=== PATIENT | female | born 1965 | race Caucasian/White ===

== ENCOUNTER 2023-04-17 14:37 | Outpatient (RCR) | payer OTHER, SELFPAY | END 2023-05-30 14:02 | disposition home or self-care (01) | LOC: PT 14:37 | PROVIDERS: PCP Family Medicine | DX: L03.114 Cellulitis of left upper limb (principal); Z98.890 Other specified postprocedural states | CPT/HCPCS: 97035; 97110; 97140; 97162 ==

== ENCOUNTER 2023-09-26 20:10 | Emergency (ER) | payer OTHER, SELFPAY ==
[2023-09-26 20:13] VITALS: BP 129/76; PULSE 67; RESP 18; TEMP 36.8; O2SAT 98; BMI 27.7
--- NOTE | 2023-09-26 20:22 | ED.EAR1 ---
HPI - Ear Problem General Chief complaint: Ear Stated complaint: EAR BLEEDING AFTER POP Time Seen by Provider: 09/26/23 20:17 Source: patient Mode of arrival: walk-in Limitations: no limitations History of Present Illness HPI Narrative: presents with right ear pain. States recent URI symptoms with cough that have improved. Ex smoker. quit 7 years ago. No dyspnea. Bleeding from right ear. Past history several years ago of ear perforation. Denies dizziness or headache. No fever MD Complaint: Reports ear pain Related Data Allergies Allergy/AdvReac Type Severity Reaction Status Date / Time No Known Drug Allergies Allergy Verified 09/26/23 20:17 Review of Systems ROS Status of ROS 10 or more systems reviewed and unremarkable except as noted in history and below [facility] Social History Smoking status: Former smoker Exam Constitutional Vital Signs, click to edit/add: Last Vital Signs Temp 98.2 F 09/26/23 20:13 Pulse 67 09/26/23 20:13 Resp 18 09/26/23 20:13 BP 129/76 09/26/23 20:13 Pulse Ox 98 09/26/23 20:13 O2 Del Method Room Air 09/26/23 20:13 Common normals: no apparent distress, average body habitus, oriented x3, no limitations, healthy appearing and alert HENND Common normals: normocephalic and head/scalp atraumatic Other: right TM inflamed. sm. perforation. No active bleeding in canal Eye Common normals: PERRL, EOMs intact bilaterally and conjunctivae normal Respiratory Common normals: normal respiratory effort, no retractions and no use of accessory muscles Cardio Common normals: regular rate, regular rhythm, S1 normal heart sound and S2 normal heart sound GI Common normals: Normal to inspection, nondistended, normoactive bowel sounds present, soft to palpation and non-tender Extremity Common normals: normal to inspection and full ROM Neuro Common normals: oriented x3, CN's II-XII intact bilaterally, moves all extremities and no focal motor deficits Psych Appearance: grossly normal Course Vital Signs Vital signs: Vital Signs Temperature 98.2 F 09/26/23 20:13 Pulse Rate 67 09/26/23 20:13 Respiratory Rate 18 09/26/23 20:13 Blood Pressure 129/76 09/26/23 20:13 Pulse Oximetry 98 09/26/23 20:13 Oxygen Delivery Method Room Air 09/26/23 20:13 Temperature 98.2 F 09/26/23 20:13 Pulse Rate 67 09/26/23 20:13 Respiratory Rate 18 09/26/23 20:13 Blood Pressure 129/76 09/26/23 20:13 Pulse Oximetry 98 09/26/23 20:13 Oxygen Delivery Method Room Air 09/26/23 20:13 Medical Decision Making MDM Narrative Medical decision making narrative: presents with acute onset of right ear pain and bleeding from the ear. Found to have acute otitis media and small perforation. No dizziness or headache. Given dose of Augmentin and discharged home to follow up with her doctor Discharge Plan Discharge Chief Complaint: Ear Clinical Impression: Otitis media, Perforated right tympanic membrane on examination Patient Disposition: Home, Self-Care Instructions: Ruptured Eardrum (ED) Additional Instructions: follow up with your doctor next week for recheck Stand Alone Forms: Portal Instructions Referrals: Huber Thorne MD [Primary Care Provider] - 1 week
[2023-09-26] MEDS: AMOXICILLIN/POTASSIUM CLAV 1 TAB TABLET PO (20:36)
== END 2023-09-26 20:39 | disposition home or self-care (01) ==
PROVIDERS: Emergency Provider Internal Medicine; PCP Family Medicine
DX: H72.91 Unspecified perforation of tympanic membrane, right ear (principal); H66.91 Otitis media, unspecified, right ear; Z87.891 Personal history of nicotine dependence
CPT/HCPCS: 99283

== ENCOUNTER 2025-07-03 07:23 | Outpatient (OUT) | payer OTHER, SELFPAY ==
--- OUTSIDE RECORDS SUMMARY | 2025-07-03 07:28 | XMS_ITS | CCD ---
Author Organization [facility] Care Team Providers Care Livestock Haulier Name Role Phone Harper Shin Unavailable LUIS ., DR FITZGERALD Admitting Unavailable HOY ., DR FITZGERALD Attending Unavailable HOY ., DR FITZGERALD Consulting Unavailable NADERER, DR HUBER Hu Primary Care Unavailable ZIEBER, DR AC Tolentino Consulting Unavailable HAY ., DR ALBERTO Consulting Unavailable SCHRELEE OLSEN Consulting Unavailable SWARTZ, LANE Consulting Unavailable NADYURI, DR HUBER Hu Admitting Unavailable NADERER, DR UHBER Hu Attending Unavailable ZIEBER, DR AC Tolentino Consulting Unavailable NADERER, DR HUBER Hu Primary Care Unavailable NADERER, DR HUBER Hu Consulting Unavailable NADERERajan, DR HUBER Hu Attending Unavailable NADERER, DR HUBER Hu Consulting Unavailable NADERER, DR HUBER Hu Primary Care Unavailable NADERER, DR HUBER Hu Admitting Unavailable JANNY CONCEPCION Admitting Unavailable JANNY CONCEPCION Attending Unavailable ZULEIMA, DR HUBER Hu Primary Care Unavailable Janny Concepcion Unavailable Janny Concepcion A Admitting Unavailable Janny Concepcion A Attending Unavailable Zuleima, Huber Primary Care Unavailable Roberto Concepcionin A Admitting Unavailable Janny Concepcion A Attending Unavailable Huber Dewey Primary Care Unavailable Jigar, John Admitting Unavailable Nadyuri, Huber Primary Care Unavailable Juvenal Holguin Consulting Unavailable Arabella Bynum Attending Unavailable Roberto Concepcionin A Consulting Unavailable Roberto Concepcionin A Admitting Unavailable Janny Concepcion A Attending Unavailable Huber Dewey Primary Care Unavailable Huber Dewey MD Primary Care Provider [phone] FIOR PINON Attending Unavailable FIOR PINON Referring Unavailable FIOR PINON Attending Unavailable NO PCP, NO PCP Primary Care Unavailable DAV PAL Attending Unavailable Allergies Allergy Classification Reported Allergen(s) Allergy Type Date of Onset Reaction(s) Facility (1 source) Penicillins Drug allergy (disorder) 04-07-2023 [facility] Repository Medications Current Medications Medication Drug Class(es) Dates Sig (Normalized) Sig (Original) acetaminophen 500 mg oral tablet (4 sources) Start: 3 take 2 tablets by mouth every eight hours Acetaminophen 500 MG 2 tablets Orally Every 8 hours for 30 days March, Active celecoxib 200 mg oral capsule (2 sources) Nonsteroidal Anti-inflammatory Drug Start: 4 take 1 capsule by mouth at bedtime celecoxib (CeleBREX) 200 MG capsule Indications: Arthralgia of right ankle take 1 capsule by mouth IN THE MORNING and BEFORE BEDTIME 180 capsule 3 04/12/2024 Active cetirizine hydrochloride 10 mg oral tablet (2 sources) Histamine-1 Receptor Antagonist Start: 1 take 1 tablet by mouth every twenty-four hours Cetirizine HCl 10 MG 1 tablet Orally Once a day for 14 days Sep, Active fluticasone propionate 0.05 mg/actuat metered dose nasal spray (1 source) Corticosteroid Start: 1 take 1 spray(s) nasal route once daily Flonase Allergy Relief 50 MCG/ACT 1 spray in each nostril Nasally Once a day for 14 day(s) Sep, Active ibuprofen 800 mg oral tablet (2 sources) Nonsteroidal Anti-inflammatory Drug Start: 4 take 1 tablet by mouth three times daily ibuprofen 800 MG tablet Indications: Arthralgia of both ankles take 1 tablet by mouth three times a day if needed 90 tablet 3 05/20/2024 Active levothyroxine sodium 0.1 mg oral tablet (2 sources) l-Thyroxine Start: 4 take 1 tablet by mouth once daily levothyroxine (Synthroid, Levoxyl) 100 MCG tablet Indications: Adult hypothyroidism (CMS/HCC) TAKE 1 TABLET BY MOUTH EVERY DAY 90 tablet 3 08/24/2024 Active linezolid 600 mg oral tablet (1 source) Oxazolidinone Antibacterial Linezolid 600 MG ALAN E 1 TABLET BY MOUTH TWICE DAILY FOR 14 DAYS Oral for 14 Days 12 pills Active methylPREDNISolone (2 sources) Corticosteroid Start: 5 methylPREDNISolone (Medrol Dospak) 4 MG tablets Indications: Posterior tibial tendinitis of right lower extremity Take as directed on package. 21 tablet 01/06/2025 Active Nirmatrelvir&Ritonavir 300/100 (Paxlovid, 300/100,) 20 x 150 MG & 10 x 100MG tablet therapy pack (2 sources) Start: 4 Nirmatrelvir&Ritonavi r 300/100 (Paxlovid, 300/100,) 20 x 150 MG & 10 x 100MG tablet therapy pack Indications: COVID Take 1 Dose by mouth See administration instructions 1 each 11/26/2023 Active omeprazole 40 mg delayed release oral capsule (4 sources) Proton Pump Inhibitor Start: 5 take 1 capsule by mouth once daily omeprazole (PriLOSEC) [address] capsule Indications: Chronic GERD TAKE 1 CAPSULE BY MOUTH EVERY DAY 90 capsule 1 12/09/2024 Active Omeprazole 40 MG Oral for 30 Days Active oxyCODONE hydrochloride 5 mg oral tablet (3 sources) Opioid Agonist Start: 04-06-2023 take 1 tablet by mouth every four hours as needed for pain oxyCODONE HCl 5 MG 1 tablet Orally every 4 hours, as needed for pain for 7 days HEATHER # [id number] March, Active Penicillin (2 sources) Penicillin 28 pills Active Completed/Discontinued Medications Medication Drug Class(es) Dates Sig (Normalized) Sig (Original) cefTRIAXone (4 sources) Cephalosporin Antibacterial Start: 10-16-2017 Rocephin 500 mg Oct, 500 mg Problems Active Problems Problem Classification Problem Date Documented Date Episodic/Chronic Cardiac dysrhythmias (3 sources) Unspecified atrial fibrillation; 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: [Paroxysmal atrial fibrillation] Onset: 03-31-2023 03-28-2024 Chronic Diseases of white blood cells (1 source) Elevated white blood cell count, unspecified; 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: [Elevated white blood cell count, unspecified] Onset: 03-26-2023 Chronic E Codes: Struck by; against (1 source) Walked into wall, initial encounter; 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: [WALKED INTO WALL INITIAL ENCOUNTER] Onset: 03-31-2023 Episodic Fluid and electrolyte disorders (1 source) Hypokalemia; 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: [HYPOKALEMIA] Onset: 03-31-2023 Episodic Fracture of lower limb (2 sources) Stress fracture of left tibia; 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: [Stress fracture, left tibia, initial encounter for fracture] 01-06-2025 Episodic Gastritis and duodenitis (2 sources) Chronic superficial gastritis; 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: [Chronic superficial gastritis without bleeding] Onset: 03-28-2024 03-28-2024 Chronic Menopausal disorders (1 source) Hormone replacement therapy; 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: [HORMONE REPLACEMENT THERAPY] Onset: 03-31-2023 Episodic Open wounds of extremities (1 source) Laceration without foreign body of left index finger without damage to nail, initial encounter; 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: [Laceration without foreign body of left index finger without damage to nail, initial encounter] Onset: 05-29-2025 Episodic Other aftercare (1 source) 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; 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: [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 CLERK CURRENT DRUG THERAPY] Onset: 03-31-2023 Episodic Other aftercare (1 source) [facility] (current) use of aspirin; 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: [SNF CURRENT USE OF ASPIRIN] Onset: 03-31-2023 Episodic Other aftercare (1 source) Encounter for removal of sutures Episodic Other connective tissue disease (2 sources) Tendinitis of right posterior tibial tendon; 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: [Posterior tibial tendinitis, right leg] 01-06-2025 Episodic Other injuries and conditions due to external causes (2 sources) Laceration - injury Onset: 05-29-2025 Episodic Other nervous system disorders (2 sources) Difficulty walking; 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: [Difficulty in walking, not elsewhere classified] 01-06-2025 Chronic Other non-traumatic joint disorders (1 source) Stiffness of left elbow, not elsewhere classified Episodic Other non-traumatic joint disorders (1 source) Pain in left knee Episodic Other non-traumatic joint disorders (2 sources) Acute ankle pain; 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: [Pain in right ankle and joints of right foot] 01-06-2025 Episodic Other non-traumatic joint disorders (2 sources) Instability of joint of right ankle; 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: [Other instability, right ankle] 01-06-2025 Episodic Other screening for suspected conditions (not mental disorders or infectious disease) (1 source) Abnormal results of kidney function studies; 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: [ABNORM RESULTS KIDNEY FUNCTION STDY] Onset: 03-31-2023 Episodic Residual codes; unclassified (1 source) Family history of malignant neoplasm of bladder; 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: [FAM HX MALIGNANT NEOPLASM BLADDER] Onset: 03-31-2023 Episodic Residual codes; unclassified (1 source) Family history of malignant neoplasm of other organs or systems; 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: [FAM HX MALIG NEOPLASM OTH ORGN/SYS] Onset: 03-31-2023 Episodic Residual codes; unclassified (4 sources) Other specified postprocedural states Episodic Screening and history of mental health and substance abuse codes (1 source) Personal history of nicotine dependence; 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: [PERSONAL HISTORY OF NICOTINE DEPEND] Onset: 03-31-2023 Episodic Skin and subcutaneous tissue infections (10 sources) Cellulitis of left upper limb; 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: [Cellulitis, unspecified] Onset: 03-26-2023 Episodic Superficial injury; contusion (1 source) Contusion of left forearm, initial encounter; 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: [CONTUSION LEFT FOREARM INITIAL ENC] Onset: 03-31-2023 Episodic Thyroid disorders (2 sources) Hypothyroidism; 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: [Hypothyroidism, unspecified] Onset: 03-28-2024 03-28-2024 Chronic Unclassified (1 source) Ankylosis, left elbow; 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, left elbow] Onset: 05-06-2023 Unclassified (1 source) Cellulitis of left upper limb; 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: [Cellulitis of left upper limb] Onset: 04-07-2023 Past or Other Problems Problem Classification Problem Date Documented Da te Episodic/Chronic Immunizations and screening for infectious disease (1 source) Contact with and (suspected) exposure to other viral communicable diseases Onset: 09-30-2021 Resolved: 09-30-2021 Episodic Other non-traumatic joint disorders (4 sources) Pain in right ankle and joints of right foot; 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: [PAIN IN RIGHT ANKLE] Onset: 08-22-2022 Episodic Other non-traumatic joint disorders (1 source) Pain in left ankle and joints of left foot; 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: [PAIN IN LEFT ANKLE] Onset: 08-26-2022 Episodic Other non-traumatic joint disorders (2 sources) Bilateral ankle joint pain; 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: [Pain in right ankle and joints of right foot] Onset: 03-28-2024 03-28-2024 Episodic Other non-traumatic joint disorders (2 sources) Chronic pain of left upper limb; 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: [Pain in left shoulder] Onset: 03-28-2024 03-28-2024 Episodic Other skin disorders (2 sources) Vesicular eczema; 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: [Dyshidrosis [pompholyx]] Onset: 03-28-2024 03-28-2024 Episodic Other upper respiratory infections (1 source) Acute upper respiratory infection, unspecified Onset: 09-30-2021 Resolved: 09-30-2021 Episodic Otitis media and related conditions (2 sources) Rupture of right tympanic membrane due to otitis media; 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: [Otitis media, unspecified, right ear] Onset: 03-28-2024 03-28-2024 Episodic Results Test Name Value Interpretation Reference Range Facility XR FINGER LT 2ND DIGIT MIN 2 VWSon 05-29-2025 XR FINGER LT 2ND DIGIT MIN 2 VWS XR FINGER LT 2ND DIGIT MIN 2 VWS STUDY: Radiographs of the left second digit TECHNIQUE: 3 views of the left second digit COMPARISON: Limited comparison with contralateral right hand radiographs dated 11/26/2009 FINDINGS/IMPRESSION: 1. Mild soft tissue edema about the base of the second digit without gross soft tissue defect/ulceration. 2. Postsurgical changes of the third proximal phalanx. Mild osteoarthritic changes of the first CMC. Normal osseous mineralization. Finalized by Mya Robles MD on 05/29/2025 1:56 PM Normal [facility] XR Ankle - right 3 Viewson 0 01-06-2025 Imaging Result: AP, mortise, lateral views are weight-bearing. Diffuse osteopenia. Small enthesophyte at the insertion of the Achilles tendon. Mild radiopacity across the tibia approximately 3 cm above the fused distal tibial physis. Talus appears well seated within the ankle mortise. No fractures or dislocations noted. [facility] Radiology Study observation (narrative) [facility] XR elbow LT 2Von 05-06-2023 XR elbow LT 2V [facility] Main [place] [address] [place] [address] XRay Report Signed Patient: Laura Tyler MR#: [id number] : 1965 Acct:[id number] Age/Sex: 57 / F ADM Date: 05/06/23 [place]: [place] Room: Type: [facility] Attending Dr: Janny Concepcion DO Copies to: Janny Concepcion DO Ordering Provider: Janny Concepcion DO Date of Service: 05/06/23 XR/XR elbow LT 2V: . XR elbow LT 2V 05/06/2023 7:26 AM SIGNS AND SYMPTOMS: Manipulation of left elbow PROTOCOL: Intraoperative views of the left elbow COMPARISON: 04/06/2023 FINDINGS: Intraoperative views of the left elbow were obtained in frontal and lateral projection. The bones appear to be in anatomic alignment. Cumulative Air Kerma in mGy: 0.0668 mGy XR/XR elbow LT 2V IMPRESSION: Intraoperative views of the left elbow were obtained in frontal and lateral projection. The bones appear to be in anatomic alignment. Impression dictated by: Braden Rae M.D.05/06/2023 10:05 AM Dictation Location: [place] [address] Transcribed By: [facility] 05/06/23 1005 Dictated By: Braden Rae II, MD 05/06/23 1003 Signed By: 05/06/23 1005 [facility] CT forearm LT wo conon 04-06 CT forearm LT wo con [facility] [place] [address] CT Scan Report Signed Patient: Laura Tyler MR#: [id number] : 1965 Acct:[id number] Age/Sex: 57 / F ADM Date: 04/06/23 Loc: CT Room: Type: [facility] Attending Dr: Janny Concepcion DO Copies to: Janny Concepcion DO Ordering Provider: Janny Concepcion DO Date of Service: 04/06/23 CT/CT humerus LT wo con: L03.114 ([id number]) CT/CT forearm LT wo con: Left arm cellulitis CT humerus LT wo con, CT forearm LT wo con 04/06/2023 3:22 PM SIGNS AND SYMPTOMS: Redness and swelling of left forearm, history of incision and debridement TECHNIQUE: Multidetector CT axial slices of the left humerus and left forearm without IV contrast. Multiplanar and 3-D reformats were performed and viewed on a separate workstation and reviewed to further define anatomy and possible pathology. CT was performed with one or more of the following dose reduction techniques: Automated exposure control, adjustment of the mA and/or kV according to patient size, or use of iterative reconstruction technique. COMPARISON: 03/28/2023. FINDINGS: There is similar soft tissue swelling along the left humerus and left elbow extending into the left forearm. There is no evidence of abscess formation. No osteolytic or bony destructive process. There is no evidence of periosteal reaction. The elbow is grossly intact without evidence of a significant joint effusion. CT/CT humerus LT wo con IMPRESSION: Findings suggest cellulitis of the left upper extremity without evidence of abscess formation. No CT evidence of osteomyelitis. Impression dictated by: Braden Rae M.D.04/06/2023 4:54 PM Dictation Location: [place] [address] Transcribed By: [facility] 04/06/23 165 Dictated By: Braden Rae II, MD 04/06/23 1648 Signed By: 04/06/231653 Normal [facility] C-Reactive Proteinon 023 C-Reactive Protein 8.3 mg/dL High 0.0-0.5 [facility] Comment on above: Result Comment: PERF ORMED BY: [place] [address] PATHOLOGIST HARDWARE INSTALLATION COORDINATOR FREDY PRICE M.D. Performed By: #### C RP #### [address] Complete Blood Count Auto Di ffon 04-02-2023 Basophils (Bld) [#/Vol] 0.1 10*3/uL Normal 0.0-0.2 [facility] Comment on above: Result Comment: PERF ORMED BY: [place] [address] PATHOLOGIST HARDWARE INSTALLATION COORDINATOR FREDY PRICE M.D. Performed By: #### C BC #### [address] Basophils/100 WBC (Bld) 0.6 % Normal . [facility] Comment on above: Performed By: #### C BC #### [address] Eosinophils (Bld) [#/Vol] 0.3 10*3/uL Normal 0.0-0.45 [facility] Comment on above: Performed By: #### C BC #### [address] Eosinophils/100 WBC (Bld) 2.5 % Normal . [facility] Comment on above: Performed By: #### C BC #### [address] Erythrocyte distribution width (RBC) [Ratio] 14.2 % Normal 11.9-15.3 [facility] Comment on above: Performed By: #### C BC #### [address] Hematocrit (Bld) [Volume fraction] 34.0 % Normal 34.0-46.4 [facility] Comment on above: Performed By: #### C BC #### [address] Hemoglobin (Bld) [Mass/Vol] 10.9 g/dL Low 11.8-15.4 [facility] Comment on above: Performed By: #### C BC #### [address] Lymphocytes (Bld) [#/Vol] 1.0 10*3/uL Normal 1.00-4.8 [facility] Comment on above: Performed By: #### C BC #### [address] Lymphocytes/100 WBC (Bld) 8.8 % Normal . [facility] Comment on above: Performed By: #### C BC #### [address] MCH (RBC) [Entitic mass] 27.3 pg Normal 24.7-34.3 [facility] Comment on above: Performed By: #### C BC #### [address] MCV (RBC) [Entitic vol] 85.4 fL Normal 80-100 [facility] Comment on above: Performed By: #### C BC #### [address] Mean Corpuscular HGB Conc 32.0 g/dL Normal 32.0-35.0 [facility] Comment on above: Performed By: #### C BC #### [address] Monocytes (Bld) [#/Vol] 0.3 10*3/uL Normal 0.0-0.8 [facility] Comment on above: Performed By: #### C BC #### [address] Monocytes/100 WBC (Bld) 2.3 % Normal . [facility] Comment on above: Performed By: #### C BC #### [address] Neutrophils (Bld) [#/Vol] 9.9 10*3/uL High 1.8-7.7 [facility] Comment on above: Performed By: #### C BC #### [address] Neutrophils/100 WBC (Bld) 85.8 % Normal . [facility] Comment on above: Performed By: #### C BC #### [address] NRBC% 0.0 /100{WBC} Normal 0-0.5 [facility] Comment on above: Performed By: #### C BC #### [address] Platelet mean volume (Bld) [Entitic vol] 7.5 fL Normal 6.3-10.7 [facility] Comment on above: Performed By: #### C BC #### [address] Platelets (Bld) [#/Vol] 476 10*3/uL High 150-450 [facility] Comment on above: Performed By: #### C BC #### [facility] [address] RBC (Bld) [#/Vol] 3.98 10*6/uL Normal 3.60-5.00 [facility] Comment on above: Performed By: #### C BC #### [facility] [address] WBC (Bld) [#/Vol] 11.5 10*3/uL Normal 3.8-11.6 [facility] Comment on above: Performed By: #### C BC #### [facility] [address] Basic Metabolic Panelon 03-16 Anion gap [Moles/Vol] 9.0 mmol/L Normal 6.0-15.0 [facility] Comment on above: Performed By: #### B MP #### [facility] [address] Calcium [Mass/Vol] 7.7 mg/dL Low 8.6-10.3 [facility] Comment on above: Performed By: #### B MP #### [facility] [address] Chloride [Moles/Vol] 102 mmol/L Normal 98-107 [facility] Comment on above: Performed By: #### B MP #### [address] CO2 [Moles/Vol] 30.4 mmol/L Normal 21.0-31.0 [facility] Comment on above: Performed By: #### B MP #### [facility] [address] Creatinine [Mass/Vol] 0.63 mg/dL Normal 0.60-1.20 [facility] Comment on above: Performed By: #### B MP #### [facility] [address] [place] [address] Creatinine Clr Calc Pharmacy 109.55 Normal [facility] Comment on above: Result Comment: PERF ORMED BY: [place] [address] PATHOLOGIST HARDWARE INSTALLATION COORDINATOR FREDY PRICE M.D. Performed By: #### B MP #### [place] [address] [place] GFR/1.73 sq M.predicted MDRD (S/P/Bld) [Vol rate/Area] mL/min/{1.73_m2} Normal [facility] Comment on above: Performed By: #### B MP #### [address] Glucose [Mass/Vol] 85 mg/dL Normal 70-100 [facility] Comment on above: Result Comment: [facility] Glucose Reference Range is dependent on time and content of last meal. Glucose of more than 200 mg/dL in a nonstressed, ambulatory subject supports the diagnosis of Diabetes Mellitus. ADA recommended reference range Performed By: #### B MP #### [address] Potassium [Moles/Vol] 4.4 mmol/L Normal 3.5-5.1 [facility] Comment on above: Performed By: #### B MP #### [address] Sodium [Moles/Vol] 137 mmol/L Normal 136-145 [facility] Comment on above: Performed By: #### B MP #### [place] [address] [place] Urea nitrogen [Mass/Vol] 14 mg/dL Normal 7-25 [facility] Comment on above: Performed By: #### B MP #### [address] Complete Blood Count Auto Di ffon 04-01-2023 Basophils (Bld) [#/Vol] 0.0 10*3/uL Normal 0.0-0.2 [facility] Comment on above: Result Comment: PERF ORMED BY: [place] [address] PATHOLOGIST HARDWARE INSTALLATION COORDINATOR FREDY PRICE M.D. Performed By: #### E SR, CRP #### [facility] [address] [place] [address] [place] Basophils/100 WBC (Bld) 0.4 % Normal . [facility] Comment on above: Performed By: #### E SR, CRP #### [facility] [address] [place] [address] [place] Eosinophils (Bld) [#/Vol] 0.2 10*3/uL Normal 0.0-0.45 [facility] Comment on above: Performed By: #### E SR, CRP #### [facility] [address] [place] [address] [place] Eosinophils/100 WBC (Bld) 1.4 % Normal . [facility] Comment on above: Performed By: #### E SR, CRP #### [facility] [address] [place] [address] Erythrocyte distribution width (RBC) [Ratio] 14.5 % Normal 11.9-15.3 [facility] Comment on above: Performed By: #### E SR, CRP #### [facility] [address] [place] [address] [place] Hematocrit (Bld) [Volume fraction] 32.7 % Low 34.0-46.4 [facility] Comment on above: Performed By: #### E SR, CRP #### [facility] [address] [place] [address] [place] Hemoglobin (Bld) [Mass/Vol] 10.6 g/dL Low 11.8-15.4 [facility] Comment on above: Performed By: #### E SR, CRP #### [facility] [address] [place] [address] [place] Lymphocytes (Bld) [#/Vol] 1.0 10*3/uL Normal 1.00-4.8 [facility] Comment on above: Performed By: #### E SR, CRP #### [facility] [address] [place] [address] [place] Lymphocytes/100 WBC (Bld) 8.7 % Normal . [facility] Comment on above: Performed By: #### E SR, CRP #### [facility] [address] MCH (RBC) [Entitic mass] 27.6 pg Normal 24.7-34.3 [facility] Comment on above: Performed By: #### E SR, CRP #### [facility] [address] MCV (RBC) [Entitic vol] 85.4 fL Normal 80-100 [facility] Comment on above: Performed By: #### E SR, CRP #### [facility] [address] [place] [address] Mean Corpuscular HGB Conc 32.3 g/dL Normal 32.0-35.0 [facility] Comment on above: Performed By: #### E SR, CRP #### [facility] [address] [place] [address] Monocytes (Bld) [#/Vol] 0.3 10*3/uL Normal 0.0-0.8 [facility] Comment on above: Performed By: #### E SR, CRP #### [facility] [address] [place] [address] Monocytes/100 WBC (Bld) 2.7 % Normal . [facility] Comment on above: Performed By: #### E SR, CRP #### [facility] [address] [place] [address] Neutrophils (Bld) [#/Vol] 10.4 10*3/uL High 1.8-7.7 [facility] Comment on above: Performed By: #### E SR, CRP #### [facility] [address] [place] [address] [place] Neutrophils/100 WBC (Bld) 86.8 % Normal . [facility] Comment on above: Performed By: #### E SR, CRP #### [facility] [address] [place] [address] NRBC% 0.1 /100{WBC} Normal 0-0.5 [facility] Comment on above: Performed By: #### E SR, CRP #### [facility] [address] [place] [address] Platelet mean volume (Bld) [Entitic vol] 7.6 fL Normal 6.3-10.7 [facility] Comment on above: Performed By: #### E SR, CRP #### [address] Platelets (Bld) [#/Vol] 450 10*3/uL Normal 150-450 [facility] Comment on above: Performed By: #### E SR, CRP #### [address] RBC (Bld) [#/Vol] 3.83 10*6/uL Normal 3.60-5.00 [facility] Comment on above: Performed By: #### E SR, CRP #### [address] WBC (Bld) [#/Vol] 12.0 10*3/uL High 3.8-11.6 [facility] Comment on above: Performed By: #### Jeffery SR, CRP #### [address] Basic Metabolic Panelon 05-1 Anion gap [Moles/Vol] 10.7 mmol/L Normal 6.0-15.0 [facility] Comment on above: Performed By: #### B MP, CBC #### [address] Calcium [Mass/Vol] 7.7 mg/dL Low 8.6-10.3 [facility] Comment on above: Performed By: #### B MP, CBC #### [address] Chloride [Moles/Vol] 101 mmol/L Normal 98-107 [facility] Comment on above: Performed By: #### B MP, CBC #### [address] CO2 [Moles/Vol] 31.2 mmol/L High 21.0-31.0 [facility] Comment on above: Performed By: #### B MP, CBC #### [facility] [address] [place] [address] [place] Creatinine [Mass/Vol] 0.71 mg/dL Normal 0.60-1.20 [facility] Comment on above: Performed By: #### B MP, CBC #### [facility] [address] [place] [address] [place] Creatinine Clr Calc Pharmacy 97.38 Normal [facility] Comment on above: Result Comment: PERF ORMED BY: [place] [address] PATHOLOGIST HARDWARE INSTALLATION COORDINATOR FREDY PRICE M.D. Performed By: #### B MP, CBC #### [place] [address] [place] GFR/1.73 sq M.predicted MDRD (S/P/Bld) [Vol rate/Area] mL/min/{1.73_m2} Normal [facility] Comment on above: Performed By: #### B MP, CBC #### [address] Glucose [Mass/Vol] 84 mg/dL Normal 70-100 [facility] Comment on above: Result Comment: [place] Glucose Reference Range is dependent on time and content of last meal. Glucose of more than 200 mg/dL in a nonstressed, ambulatory subject supports the diagnosis of Diabetes Mellitus. ADA recommended reference range Performed By: #### B MP, CBC #### [place] [address] [place] Potassium [Moles/Vol] 3.9 mmol/L Normal 3.5-5.1 [facility] Comment on above: Performed By: #### B MP, CBC #### [place] [address] [place] Sodium [Moles/Vol] 139 mmol/L Normal 136-145 [facility] Comment on above: Performed By: #### B MP, CBC #### [facility] [address] [place] [address] [place] Urea nitrogen [Mass/Vol] 17 mg/dL Normal 7-25 [facility] Comment on above: Performed By: #### B MP, CBC #### [facility] [address] Complete Blood Count Auto Di ffon 03-31-2023 Basophils (Bld) [#/Vol] 0.1 10*3/uL Normal 0.0-0.2 [facility] Comment on above: Result Comment: PERF ORMED BY: [place] [address] PATHOLOGIST HARDWARE INSTALLATION COORDINATOR FREDY PRICE M.D. Performed By: #### B MP, CBC #### [address] Basophils/100 WBC (Bld) 0.3 % Normal . [facility] Comment on above: Performed By: #### B MP, CBC #### [address] Eosinophils (Bld) [#/Vol] 0.1 10*3/uL Normal 0.0-0.45 [facility] Comment on above: Performed By: #### B MP, CBC #### [address] Eosinophils/100 WBC (Bld) 0.9 % Normal . [facility] Comment on above: Performed By: #### B MP, CBC #### [address] Erythrocyte distribution width (RBC) [Ratio] 14.2 % Normal 11.9-15.3 [facility] Comment on above: Performed By: #### B MP, CBC #### [facility] [address] [place] [address] Hematocrit (Bld) [Volume fraction] 33.1 % Low 34.0-46.4 [facility] Comment on above: Performed By: #### B MP, CBC #### [address] Hemoglobin (Bld) [Mass/Vol] 10.6 g/dL Low 11.8-15.4 [facility] Comment on above: Performed By: #### B MP, CBC #### [facility] [address] Lymphocytes (Bld) [#/Vol] 0.9 10*3/uL Low 1.00-4.8 [facility] Comment on above: Performed By: #### B MP, CBC #### [address] Lymphocytes/100 WBC (Bld) 6.1 % Normal . [facility] Comment on above: Performed By: #### B MP, CBC #### [address] MCH (RBC) [Entitic mass] 27.3 pg Normal 24.7-34.3 [facility] Comment on above: Performed By: #### B MP, CBC #### [address] MCV (RBC) [Entitic vol] 85.5 fL Normal 80-100 [facility] Comment on above: Performed By: #### B MP, CBC #### [address] Mean Corpuscular HGB Conc 31.9 g/dL Low 32.0-35.0 [facility] Comment on above: Performed By: #### B MP, CBC #### [address] Monocytes (Bld) [#/Vol] 0.3 10*3/uL Normal 0.0-0.8 [facility] Comment on above: Performed By: #### B MP, CBC #### [place] [address] [place] Monocytes/100 WBC (Bld) 2.3 % Normal . [facility] Comment on above: Performed By: #### B MP, CBC #### [address] Neutrophils (Bld) [#/Vol] 13.5 10*3/uL High 1.8-7.7 [facility] Comment on above: Performed By: #### B MP, CBC #### [address] Neutrophils/100 WBC (Bld) 90.4 % Normal . [facility] Comment on above: Performed By: #### B MP, CBC #### [facility] [address] NRBC% 0.0 /100{WBC} Normal 0-0.5 [facility] Comment on above: Performed By: #### B MP, CBC #### [address] Platelet mean volume (Bld) [Entitic vol] 7.8 fL Normal 6.3-10.7 [facility] Comment on above: Performed By: #### B MP, CBC #### [address] Platelets (Bld) [#/Vol] 447 10*3/uL Normal 150-450 [facility] Comment on above: Performed By: #### B MP, CBC #### [address] RBC (Bld) [#/Vol] 3.87 10*6/uL Normal 3.60-5.00 [facility] Comment on above: Performed By: #### B MP, CBC #### [address] WBC (Bld) [#/Vol] 14.9 10*3/uL High 3.8-11.6 [facility] Comment on above: Performed By: #### B MP, CBC #### [address] Basic Metabolic Panelon 05- Anion gap [Moles/Vol] 8.2 mmol/L Normal 6.0-15.0 [facility] Comment on above: Performed By: #### E SR, CRP #### [address] Calcium [Mass/Vol] 8.1 mg/dL Low 8.6-10.3 [facility] Comment on above: Performed By: #### E SR, CRP #### [facility] [address] [place] [address] [place] Chloride [Moles/Vol] 100 mmol/L Normal 98-107 [facility] Comment on above: Performed By: #### E SR, CRP #### [facility] [address] [place] [address] [place] CO2 [Moles/Vol] 34.7 mmol/L High 21.0-31.0 [facility] Comment on above: Performed By: #### E SR, CRP #### [facility] [address] [place] [address] [place] Creatinine [Mass/Vol] 0.65 mg/dL Normal 0.60-1.20 [facility] Comment on above: Performed By: #### E SR, CRP #### [facility] [address] [place] [address] [place] Creatinine Clr Calc Pharmacy 105.75 [facility] Comment on above: Performed By: #### E SR, CRP #### [facility] [address] [place] [address] [place] GFR/1.73 sq M.predicted MDRD (S/P/Bld) [Vol rate/Area] mL/min/{1.73_m2} [facility] Comment on above: Performed By: #### E SR, CRP #### [facility] [address] [place] [address] [place] Glucose [Mass/Vol] 120 mg/dL High 70-100 [facility] Comment on above: Result Comment: [place] Glucose Reference Range is dependent on time and content of last meal. Glucose of more than 200 mg/dL in a nonstressed, ambulatory subject supports the diagnosis of Diabetes Mellitus. ADA recommended reference range Performed By: #### E SR, CRP #### [facility] [address] [place] [address] [place] Potassium [Moles/Vol] 3.9 mmol/L Normal 3.5-5.1 [facility] Comment on above: Performed By: #### E SR, CRP #### [place] [address] Sodium [Moles/Vol] 139 mmol/L Normal 136-145 [facility] Comment on above: Performed By: #### E SR, CRP #### [address] Urea nitrogen [Mass/Vol] 16 mg/dL Normal 7-25 [facility] Comment on above: Performed By: #### E SR, CRP #### [address] Complete Blood Count Auto Di ffon 03-30-2023 Basophils (Bld) [#/Vol] 0.1 10*3/uL Normal 0.0-0.2 [facility] Comment on above: Result Comment: PERF ORMED BY: [place] [address] PATHOLOGIST HARDWARE INSTALLATION COORDINATOR FREDY PRICE M.D. Performed By: #### E SR, CRP #### [address] Basophils/100 WBC (Bld) 0.4 % Normal . [facility] Comment on above: Performed By: #### E SR, CRP #### [address] Eosinophils (Bld) [#/Vol] 0.0 10*3/uL Normal 0.0-0.45 [facility] Comment on above: Performed By: #### E SR, CRP #### [address] Eosinophils/100 WBC (Bld) 0.0 % Normal . [facility] Comment on above: Performed By: #### E SR, CRP #### [address] Erythrocyte distribution width (RBC) [Ratio] 14.2 % Normal 11.9-15.3 [facility] Comment on above: Performed By: #### E SR, CRP #### [address] Hematocrit (Bld) [Volume fraction] 34.8 % Normal 34.0-46.4 [facility] Comment on above: Performed By: #### E SR, CRP #### [facility] [address] Hemoglobin (Bld) [Mass/Vol] 11.1 g/dL Low 11.8-15.4 [facility] Comment on above: Performed By: #### E SR, CRP #### [facility] [address] Lymphocytes (Bld) [#/Vol] 0.9 10*3/uL Low 1.00-4.8 [facility] Comment on above: Performed By: #### E SR, CRP #### [facility] [address] Lymphocytes/100 WBC (Bld) 3.6 % Normal . [facility] Comment on above: Performed By: #### E SR, CRP #### [facility] [address] MCH (RBC) [Entitic mass] 27.0 pg Normal 24.7-34.3 [facility] Comment on above: Performed By: #### E SR, CRP #### [facility] [address] MCV (RBC) [Entitic vol] 84.5 fL Normal 80-100 [facility] Comment on above: Performed By: #### E SR, CRP #### [facility] [address] Mean Corpuscular HGB Conc 32.0 g/dL Normal 32.0-35.0 [facility] Comment on above: Performed By: #### E SR, CRP #### [facility] [address] [place] [address] [place] Monocytes (Bld) [#/Vol] 0.5 10*3/uL Normal 0.0-0.8 [facility] Comment on above: Performed By: #### E SR, CRP #### [facility] [address] [place] [address] [place] Monocytes/100 WBC (Bld) 2.3 % Normal . [facility] Comment on above: Performed By: #### E SR, CRP #### [facility] [address] [place] [address] [place] Neutrophils (Bld) [#/Vol] 22.4 10*3/uL High 1.8-7.7 [facility] Comment on above: Performed By: #### E SR, CRP #### [facility] [address] [place] [id number] [place] Neutrophils/100 WBC (Bld) 93.7 % Normal . [facility] Comment on above: Performed By: #### E SR, CRP #### [facility] [address] [place] [address] [place] NRBC% 0.0 /100{WBC} Normal 0-0.5 [facility] Comment on above: Performed By: #### E SR, CRP #### [facility] [address] [place] [address] [place] Platelet mean volume (Bld) [Entitic vol] 8.1 fL Normal 6.3-10.7 [facility] Comment on above: Performed By: #### E SR, CRP #### [facility] [address] [place] [address] [place] Platelets (Bld) [#/Vol] 398 10*3/uL Normal 150-450 [facility] Comment on above: Performed By: #### E SR, CRP #### [facility] [address] [place] [address] [place] RBC (Bld) [#/Vol] 4.12 10*6/uL Normal 3.60-5.00 [facility] Comment on above: Performed By: #### E SR, CRP #### [facility] [address] [place] [address] [place] WBC (Bld) [#/Vol] 23.9 10*3/uL High 3.8-11.6 [facility] Comment on above: Performed By: #### E SR, CRP #### [facility] [address] [place] [address] [place] ECG 12 lead ECGon 05-15-2023 ECG 12 lead ECG [facility] [place] [address] [place] [address] Electrocardiograph Report Signed Patient: Laura Tyler MR#: [id number] : 1965 Acct:[id number] Age/Sex: 57 / F ADM Date: 03/26/23 Loc: Room: [address] [place] [address] Type: ADM IN Attending Dr: Arabella Bynum MD Ordering Provider: Latanya Jerome DO, RES Date of Service: 03/30/23 ECG/ECG 12 lead ECG: bradycardia Copies to: Test Reason : Blood Pressure : / mmHG Vent. Rate : 058 BPM Atrial Rate : 058 BPM P-R Int : 142 ms QRS Dur : 094 ms QT Int : 458 ms P-R-T Axes : 067 070 070 degrees QTc Int : 449 ms Sinus bradycardia with occasional premature ventricular complexes Otherwise normal ECG When compared with ECG of 28-MAR-2023 18:48, Vent. rate has decreased BY 30 BPM T wave amplitude has increased in Inferior leads Confirmed by NISHANT ANDERS MD ([id number]) on 03/30/2023 4:27:00 PM Referred By: Electronically Signed By:NISHANT ANDERS MD Transcribed By: MUS Signed By Nishant Anders MD 0 03/30/23 1627 Normal [facility] Magnesiumon 03-30-2023 Magnesium [Mass/Vol] 1.8 mg/dL Low 1.9-2.7 [facility] Comment on above: Result Comment: PERF ORMED BY: [place] [address] PATHOLOGIST HARDWARE INSTALLATION COORDINATOR FREDY PRICE M.D. Performed By: #### E SR, CRP #### [address] Aerobic Cultureon 03-29-2023 Aerobic Culture ORGANISM: Streptococcus pyogenes grp A (O:STRPYO) Comments Organism Not Routinely Tested for Susceptibilities Quantity of Growth Light Growth No Anaerobes Isolated 3 Days Gram Stain Result 1+ White Blood Cells Rare Gram Positive Cocci PERFORMED BY: [place] [address] PATHOLOGIST HARDWARE INSTALLATION COORDINATOR FREDY PRICE M.D. Normal [facility] Comment on above: Performed By: #### B MP, CBC #### [facility] [address] Basic Metabolic Panelon 05-1 Anion gap [Moles/Vol] 9.8 mmol/L Normal 6.0-15.0 [facility] Comment on above: Performed By: #### B MP, CBC #### [facility] [address] Calcium [Mass/Vol] 8.2 mg/dL Low 8.6-10.3 [facility] Comment on above: Performed By: #### B MP, CBC #### [facility] [address] Chloride [Moles/Vol] 100 mmol/L Normal 98-107 [facility] Comment on above: Performed By: #### B MP, CBC #### [address] CO2 [Moles/Vol] 31.7 mmol/L High 21.0-31.0 [facility] Comment on above: Performed By: #### B MP, CBC #### [facility] [address] Creatinine [Mass/Vol] 0.60 mg/dL Normal 0.60-1.20 [facility] Comment on above: Performed By: #### B MP, CBC #### [facility] [address] [place] [address] [place] Creatinine Clr Calc Pharmacy 114.56 Normal [facility] Comment on above: Result Comment: PERF ORMED BY: [place] [address] PATHOLOGIST HARDWARE INSTALLATION COORDINATOR FREDY PRICE M.D. Performed By: #### B MP, CBC #### [facility] [address] [place] [address] [place] GFR/1.73 sq M.predicted MDRD (S/P/Bld) [Vol rate/Area] mL/min/{1.73_m2} Normal [facility] Comment on above: Performed By: #### B MP, CBC #### [facility] [address] Glucose [Mass/Vol] 92 mg/dL Normal 70-100 [facility] Comment on above: Result Comment: [facility] Glucose Reference Range is dependent on time and content of last meal. Glucose of more than 200 mg/dL in a nonstressed, ambulatory subject supports the diagnosis of Diabetes Mellitus. ADA recommended reference range Performed By: #### B MP, CBC #### [facility] [address] Potassium [Moles/Vol] 3.5 mmol/L Normal 3.5-5.1 [facility] Comment on above: Performed By: #### B MP, CBC #### [address] Sodium [Moles/Vol] 138 mmol/L Normal 136-145 [facility] Comment on above: Performed By: #### B MP, CBC #### [address] Urea nitrogen [Mass/Vol] 9 mg/dL Normal 7-25 [facility] Comment on above: Performed By: #### B MP, CBC #### [address] Complete Blood Count Auto Di ffon 03-29-2023 Basophils (Bld) [#/Vol] 0.1 10*3/uL Normal 0.0-0.2 [facility] Comment on above: Result Comment: PERF ORMED BY: [place] [address] PATHOLOGIST HARDWARE INSTALLATION COORDINATOR FREDY PRICE M.D. Performed By: #### B MP, CBC #### [place] [address] [place] Basophils/100 WBC (Bld) 0.3 % Normal . [facility] Comment on above: Performed By: #### B MP, CBC #### [facility] [address] [place] [address] [place] Eosinophils (Bld) [#/Vol] 0.2 10*3/uL Normal 0.0-0.45 [facility] Comment on above: Performed By: #### B MP, CBC #### [facility] [address] Eosinophils/100 WBC (Bld) 1.0 % Normal . [facility] Comment on above: Performed By: #### B MP, CBC #### [address] Erythrocyte distribution width (RBC) [Ratio] 14.3 % Normal 11.9-15.3 [facility] Comment on above: Performed By: #### B MP, CBC #### [address] Hematocrit (Bld) [Volume fraction] 35.2 % Normal 34.0-46.4 [facility] Comment on above: Performed By: #### B MP, CBC #### [address] Hemoglobin (Bld) [Mass/Vol] 11.4 g/dL Low 11.8-15.4 [facility] Comment on above: Performed By: #### B MP, CBC #### [place] [address] [place] Lymphocytes (Bld) [#/Vol] 1.0 10*3/uL Normal 1.00-4.8 [facility] Comment on above: Performed By: #### B MP, CBC #### [place] [address] [place] Lymphocytes/100 WBC (Bld) 4.7 % Normal . [facility] Comment on above: Performed By: #### B MP, CBC #### [address] MCH (RBC) [Entitic mass] 27.3 pg Normal 24.7-34.3 [facility] Comment on above: Performed By: #### B MP, CBC #### [facility] [address] MCV (RBC) [Entitic vol] 84.1 fL Normal 80-100 [facility] Comment on above: Performed By: #### B MP, CBC #### [facility] [address] Mean Corpuscular HGB Conc 32.5 g/dL Normal 32.0-35.0 [facility] Comment on above: Performed By: #### B MP, CBC #### [facility] [address] Monocytes (Bld) [#/Vol] 0.8 10*3/uL Normal 0.0-0.8 [facility] Comment on above: Performed By: #### B MP, CBC #### [address] Monocytes/100 WBC (Bld) 3.8 % Normal . [facility] Comment on above: Performed By: #### B MP, CBC #### [address] Neutrophils (Bld) [#/Vol] 18.4 10*3/uL High 1.8-7.7 [facility] Comment on above: Performed By: #### B MP, CBC #### [address] Neutrophils/100 WBC (Bld) 90.2 % Normal . [facility] Comment on above: Performed By: #### B MP, CBC #### [address] NRBC% 0.0 /100{WBC} Normal 0-0.5 [facility] Comment on above: Performed By: #### B MP, CBC #### [address] Platelet mean volume (Bld) [Entitic vol] 8.2 fL Normal 6.3-10.7 [facility] Comment on above: Performed By: #### B MP, CBC #### [place] [address] [place] Platelets (Bld) [#/Vol] 368 10*3/uL Normal 150-450 [facility] Comment on above: Performed By: #### B MP, CBC #### [address] RBC (Bld) [#/Vol] 4.18 10*6/uL Normal 3.60-5.00 [facility] Comment on above: Performed By: #### B MP, CBC #### [address] WBC (Bld) [#/Vol] 20.4 10*3/uL High 3.8-11.6 [facility] Comment on above: Performed By: #### B MP, CBC #### [address] Basic Metabolic Panelon 05- Anion gap [Moles/Vol] 10.1 mmol/L Normal 6.0-15.0 [facility] Comment on above: Performed By: #### B MP, CBC #### [address] Calcium [Mass/Vol] 8.0 mg/dL Low 8.6-10.3 [facility] Comment on above: Performed By: #### B MP, CBC #### [address] Chloride [Moles/Vol] 101 mmol/L Normal 98-107 [facility] Comment on above: Performed By: #### B MP, CBC #### [address] CO2 [Moles/Vol] 29.2 mmol/L Normal 21.0-31.0 [facility] Comment on above: Performed By: #### B MP, CBC #### [address] Creatinine [Mass/Vol] 0.68 mg/dL Normal 0.60-1.20 [facility] Comment on above: Performed By: #### B MP, CBC #### [facility] [address] [place] [address] [place] Creatinine Clr Calc Pharmacy 88.34 Normal [facility] Comment on above: Result Comment: PERF ORMED BY: [place] [address] PATHOLOGIST HARDWARE INSTALLATION COORDINATOR FREDY PRICE M.D. Performed By: #### B MP, CBC #### [place] [address] [place] GFR/1.73 sq M.predicted MDRD (S/P/Bld) [Vol rate/Area] mL/min/{1.73_m2} Normal [facility] Comment on above: Performed By: #### B MP, CBC #### [address] Glucose [Mass/Vol] 92 mg/dL Normal 70-100 [facility] Comment on above: Result Comment: [place] Glucose Reference Range is dependent on time and content of last meal. Glucose of more than 200 mg/dL in a nonstressed, ambulatory subject supports the diagnosis of Diabetes Mellitus. ADA recommended reference range Performed By: #### B MP, CBC #### [address] Potassium [Moles/Vol] 3.3 mmol/L Low 3.5-5.1 [facility] Comment on above: Performed By: #### B MP, CBC #### [place] [address] [place] Sodium [Moles/Vol] 137 mmol/L Normal 136-145 [facility] Comment on above: Performed By: #### B MP, CBC #### [place] [address] [place] Urea nitrogen [Mass/Vol] 9 mg/dL Normal 7-25 [facility] Comment on above: Performed By: #### B MP, CBC #### [place] [address] [place] Blood Cultureon 03-28-2023 Bacteria identified Cx Nom (Bld) NO GROWTH 5 DAYS PERFORMED BY: [place] [address] PATHOLOGIST HARDWARE INSTALLATION COORDINATOR FREDY PRICE M.D. [facility] Comment on above: Performed By: #### B MP, CBC #### [place] [id number] [facility] C-Reactive Proteinon 023 C-Reactive Protein 25.4 mg/dL High 0.0-0.5 [facility] Comment on above: Result Comment: PERF ORMED BY: [place] [address] PATHOLOGIST HARDWARE INSTALLATION COORDINATOR FREDY PRICE M.D. Performed By: #### E SR, CRP #### [address] forearm LT w conon 2022 CT forearm LT w con [facility] [place] [address] [place] [address] CT Scan Report Signed Patient: Laura Tyler MR#: [id number] : 1965 Acct:[id number] Age/Sex: 57 / F ADM Date: 03/26/23 Loc: Room: [address] [place] [address] Type: ADM IN Attending Dr: John Kimball MD Copies to: MD Janny Staples DO Ordering Provider: Janny Concepcion DO Date of Service: 03/28/23 CT/CT humerus LT w con: cellulitis ([id number]) CT/CT forearm LT w con: cellulitis CT humerus LT w con, CT forearm LT w con 03/28/2023 10:14 AM SIGNS AND SYMPTOMS: cellulitis, increasing pressure in left arm CONTRAST: 90 mL of intravenous Isovue-300 TECHNIQUE: Multiple detector CT axial slices of the left humerus and forearm were obtained with IV contrast. Multiplanar reformats were performed and viewed on a separate workstation and reviewed to further define anatomy and possible pathology. CT was performed with one or more of the following dose reduction techniques: Automated exposure control, adjustment of the mA and/or kV according to patient size, or use of iterative reconstruction technique. COMPARISON: 03/24/2023 FINDINGS: There is diffuse soft tissue swelling in the forearm and subcutaneous fat of the left upper arm. System with a history of cellulitis. There is no definite evidence of fluid collection to suggest abscess formation. However, the soft tissues are incompletely visualized. No underlying osteolytic or bony destructive process to suggest osteomyelitis. No fracture. The vascular structures appear to be patent. Mildly prominent axillary lymph nodes are noted which are presumed to be inflammatory/infecti ous in nature. CT/CT humerus LT w con IMPRESSION: Findings consistent with cellulitis in the left upper arm and forearm. No evidence of osteomyelitis or abscess. Reactive lymph nodes are noted in the left axilla. Impression dictated by: Braden Rae M.D.03/28/2023 12:19 PM Dictation Location: [place] [address] Transcribed By: [facility] 03/28/23 1219 Dictated By: Braden Rae II, MD 03/28/23 1212 Signed By: 03/28/23 1219 Normal [facility] Complete Blood Count Auto Di ffon 03-28-2023 Basophils (Bld) [#/Vol] 0.1 10*3/uL Normal 0.0-0.2 [facility] Comment on above: Result Comment: PERF ORMED BY: [place] [address] PATHOLOGIST HARDWARE INSTALLATION COORDINATOR FREDY PRICE M.D. Performed By: #### B MP, CBC #### [facility] [address] [place] [address] [place] Basophils/100 WBC (Bld) 0.4 % Normal . [facility] Comment on above: Performed By: #### B MP, CBC #### [facility] [address] [place] [address] [place] Eosinophils (Bld) [#/Vol] 0.2 10*3/uL Normal 0.0-0.45 [facility] Comment on above: Performed By: #### B MP, CBC #### [facility] [address] [place] [address] [place] Eosinophils/100 WBC (Bld) 1.1 % Normal . [facility] Comment on above: Performed By: #### B MP, CBC #### [facility] [address] Erythrocyte distribution width (RBC) [Ratio] 14.7 % Normal 11.9-15.3 [facility] Comment on above: Performed By: #### B MP, CBC #### [address] Hematocrit (Bld) [Volume fraction] 36.0 % Normal 34.0-46.4 [facility] Comment on above: Performed By: #### B MP, CBC #### [address] Hemoglobin (Bld) [Mass/Vol] 11.6 g/dL Low 11.8-15.4 [facility] Comment on above: Performed By: #### B MP, CBC #### [address] Lymphocytes (Bld) [#/Vol] 0.9 10*3/uL Low 1.00-4.8 [facility] Comment on above: Performed By: #### B MP, CBC #### [place] [address] [place] Lymphocytes/100 WBC (Bld) 4.3 % Normal . [facility] Comment on above: Performed By: #### B MP, CBC #### [address] MCH (RBC) [Entitic mass] 27.2 pg Normal 24.7-34.3 [facility] Comment on above: Performed By: #### B MP, CBC #### [address] MCV (RBC) [Entitic vol] 84.7 fL Normal 80-100 [facility] Comment on above: Performed By: #### B MP, CBC #### [address] Mean Corpuscular HGB Conc 32.2 g/dL Normal 32.0-35.0 [facility] Comment on above: Performed By: #### B MP, CBC #### [facility] [address] [place] [address] [place] Monocytes (Bld) [#/Vol] 1.0 10*3/uL High 0.0-0.8 [facility] Comment on above: Performed By: #### B MP, CBC #### [facility] [address] [place] [address] [place] Monocytes/100 WBC (Bld) 4.7 % Normal . [facility] Comment on above: Performed By: #### B MP, CBC #### [facility] [address] [place] [address] [place] Neutrophils (Bld) [#/Vol] 18.7 10*3/uL High 1.8-7.7 [facility] Comment on above: Performed By: #### B MP, CBC #### [address] Neutrophils/100 WBC (Bld) 89.5 % Normal . [facility] Comment on above: Performed By: #### B MP, CBC #### [address] NRBC% 0.0 /100{WBC} Normal 0-0.5 [facility] Comment on above: Performed By: #### B MP, CBC #### [facility] [address] Platelet mean volume (Bld) [Entitic vol] 8.6 fL Normal 6.3-10.7 [facility] Comment on above: Performed By: #### B MP, CBC #### [facility] [address] [place] [address] [place] Platelets (Bld) [#/Vol] 329 10*3/uL Normal 150-450 [facility] Comment on above: Performed By: #### B MP, CBC #### [facility] [address] [place] [address] [place] RBC (Bld) [#/Vol] 4.25 10*6/uL Normal 3.60-5.00 [facility] Comment on above: Performed By: #### B MP, CBC #### [facility] [address] [place] [address] WBC (Bld) [#/Vol] 20.8 10*3/uL High 3.8-11.6 [facility] Comment on above: Performed By: #### B MP, CBC #### [facility] [address] [place] [address] ECG 12 lead ECGon 03-28-2023 ECG 12 lead ECG [facility] [place] [address] [place] [address] Electrocardiograph Report Signed Patient: Laura Tyler MR#: [id number] : 1965 Acct:[id number] Age/Sex: 57 / F ADM Date: 03/26/23 Loc: Room: [address] [place] [address] Type: ADM IN Attending Dr: John Kimball MD Ordering Provider: Janny Concepcion DO Date of Service: 03/28/23 ECG/ECG 12 lead ECG: surgery Copies to: Test Reason : Blood Pressure : / mmHG Vent. Rate : 088 BPM Atrial Rate : 088 BPM P-R Int : 138 ms QRS Dur : 092 ms QT Int : 366 ms P-R-T Axes : 061 057 049 degrees QTc Int : 442 ms Sinus rhythm with occasional premature ventricular complexes Otherwise normal ECG No previous ECGs available Confirmed by ZI LUNA DO ([id number]) on 03/29/2023 11:45:37 AM Referred By: Electronically Signed By:ZI LUNA DO Transcribed By: MUS Signed By Zi Luna DO 03/29 1145 Normal [facility] Erythrocyte Sedimentation Ra charisma 03-28-2023 ESR (Bld) [Velocity] 79 mm/h High 0-29 [facility] Comment on above: Result Comment: PERF ORMED BY: [place] [address] PATHOLOGIST HARDWARE INSTALLATION COORDINATOR FREDY PRICE M.D. Performed By: #### E SR, CRP #### [address] HCG,Quantitativeon HCG,Quantitative 1.38 m[iU]/mL Normal [facility] Comment on above: Result Comment: Appr oximate Approximate hCG Gestational Age Range (mIU/ml) (weeks) 0.2-1 5-50 1-2 50-500 2-3 100-5,000 3-4 500-10,000 4-5 1,000-50,000 5-6 10,000-100,000 6-8 15,000-200,000 8-12 10,000-100,000 PERFORMED BY: [place] [address] PATHOLOGIST HARDWARE INSTALLATION COORDINATOR FREDY PRICE M.D. Performed By: #### B MP, CBC #### [facility] [address] [place] [address] Basic Metabolic Panelon 03-16 Anion gap [Moles/Vol] 11.6 mmol/L Normal 6.0-15.0 [facility] Comment on above: Performed By: #### E SR, CRP #### [facility] [address] [place] [address] [place] Calcium [Mass/Vol] 8.2 mg/dL Low 8.6-10.3 [facility] Comment on above: Performed By: #### E SR, CRP #### [facility] [address] [place] [address] [place] Chloride [Moles/Vol] 103 mmol/L Normal 98-107 [facility] Comment on above: Performed By: #### E SR, CRP #### [facility] [address] [place] [id number] [place] CO2 [Moles/Vol] 26.5 mmol/L Normal 21.0-31.0 [facility] Comment on above: Performed By: #### E SR, CRP #### [facility] [address] [place] [address] [place] Creatinine [Mass/Vol] 0.74 mg/dL Normal 0.60-1.20 [facility] Comment on above: Performed By: #### E SR, CRP #### [facility] [address] [place] [address] [place] Creatinine Clr Calc Pharmacy 81.17 Normal [facility] Comment on above: Result Comment: PERF ORMED BY: [place] [address] PATHOLOGIST HARDWARE INSTALLATION COORDINATOR FREDY PRICE M.D. Performed By: #### E SR, CRP #### [place] [address] [place] GFR/1.73 sq M.predicted MDRD (S/P/Bld) [Vol rate/Area] mL/min/{1.73_m2} Normal [facility] Comment on above: Performed By: #### E SR, CRP #### [address] Glucose [Mass/Vol] 98 mg/dL Normal 70-100 [facility] Comment on above: Result Comment: [facility] Glucose Reference Range is dependent on time and content of last meal. Glucose of more than 200 mg/dL in a nonstressed, ambulatory subject supports the diagnosis of Diabetes Mellitus. ADA recommended reference range Performed By: #### E SR, CRP #### [facility] [address] [place] [address] [place] Potassium [Moles/Vol] 3.1 mmol/L Low 3.5-5.1 [facility] Comment on above: Performed By: #### E SR, CRP #### [facility] [address] [place] [address] [place] Sodium [Moles/Vol] 138 mmol/L Normal 136-145 [facility] Comment on above: Performed By: #### E SR, CRP #### [facility] [address] [place] [address] [place] Urea nitrogen [Mass/Vol] 12 mg/dL Normal 7-25 [facility] Comment on above: Performed By: #### E SR, CRP #### [facility] [address] [place] [address] [place] Complete Blood Count Auto Di ffon 03-27-2023 Basophils (Bld) [#/Vol] 0.2 10*3/uL Normal 0.0-0.2 [facility] Comment on above: Result Comment: PERF ORMED BY: [place] [address] PATHOLOGIST HARDWARE INSTALLATION COORDINATOR FREDY PRICE M.D. Performed By: #### C BC, BMP #### [address] Basophils/100 WBC (Bld) 0.7 % Normal . [facility] Comment on above: Performed By: #### C BC, BMP #### [address] Eosinophils (Bld) [#/Vol] 0.1 10*3/uL Normal 0.0-0.45 [facility] Comment on above: Performed By: #### C BC, BMP #### [address] Eosinophils/100 WBC (Bld) 0.5 % Normal . [facility] Comment on above: Performed By: #### C BC, BMP #### [address] Erythrocyte distribution width (RBC) [Ratio] 14.4 % Normal 11.9-15.3 [facility] Comment on above: Performed By: #### C BC, BMP #### [address] Hematocrit (Bld) [Volume fraction] 35.0 % Normal 34.0-46.4 [facility] Comment on above: Performed By: #### C BC, BMP #### [place] [address] [place] Hemoglobin (Bld) [Mass/Vol] 11.1 g/dL Low 11.8-15.4 [facility] Comment on above: Performed By: #### C BC, BMP #### [place] [address] [place] Lymphocytes (Bld) [#/Vol] 0.8 10*3/uL Low 1.00-4.8 [facility] Comment on above: Performed By: #### C BC, BMP #### [facility] [address] Lymphocytes/100 WBC (Bld) 3.4 % Normal . [facility] Comment on above: Performed By: #### C BC, BMP #### [facility] [address] MCH (RBC) [Entitic mass] 26.8 pg Normal 24.7-34.3 [facility] Comment on above: Performed By: #### C BC, BMP #### [facility] [address] MCV (RBC) [Entitic vol] 84.3 fL Normal 80-100 [facility] Comment on above: Performed By: #### C BC, BMP #### [address] Mean Corpuscular HGB Conc 31.8 g/dL Low 32.0-35.0 [facility] Comment on above: Performed By: #### C BC, BMP #### [place] [address] [place] Monocytes (Bld) [#/Vol] 1.1 10*3/uL High 0.0-0.8 [facility] Comment on above: Performed By: #### C BC, BMP #### [place] [address] [place] Monocytes/100 WBC (Bld) 4.8 % Normal . [facility] Comment on above: Performed By: #### C BC, BMP #### [place] [address] [place] Neutrophils (Bld) [#/Vol] 21.6 10*3/uL High 1.8-7.7 [facility] Comment on above: Performed By: #### C BC, BMP #### [address] Neutrophils/100 WBC (Bld) 90.6 % Normal . [facility] Comment on above: Performed By: #### C BC, BMP #### [place] [address] [place] NRBC% 0.0 /100{WBC} Normal 0-0.5 [facility] Comment on above: Performed By: #### C DAVY, BMP #### [address] Platelet mean volume (Bld) [Entitic vol] 8.5 fL Normal 6.3-10.7 [facility] Comment on above: Performed By: #### C DAVY, BMP #### [address] Platelets (Bld) [#/Vol] 319 10*3/uL Normal 150-450 [facility] Comment on above: Performed By: #### C DAVY, BMP #### [address] RBC (Bld) [#/Vol] 4.15 10*6/uL Normal 3.60-5.00 [facility] Comment on above: Performed By: #### C DAVY, BMP #### [address] WBC (Bld) [#/Vol] 23.9 10*3/uL High 3.8-11.6 [facility] Comment on above: Performed By: #### C DAVY, BMP #### [address] Basic Metabolic Panelon 05- Anion gap [Moles/Vol] 11.4 mmol/L Normal 6.0-15.0 [facility] Comment on above: Performed By: #### E SR, CRP #### [address] Calcium [Mass/Vol] 8.2 mg/dL Low 8.6-10.3 [facility] Comment on above: Performed By: #### E SR, CRP #### [address] Chloride [Moles/Vol] 106 mmol/L Normal 98-107 [facility] Comment on above: Performed By: #### E SR, CRP #### [facility] [address] [place] [address] [place] CO2 [Moles/Vol] 24.9 mmol/L Normal 21.0-31.0 [facility] Comment on above: Performed By: #### E SR, CRP #### [facility] [address] Creatinine [Mass/Vol] 0.77 mg/dL Normal 0.60-1.20 [facility] Comment on above: Performed By: #### E SR, CRP #### [facility] [address] [place] [address] [place] Creatinine Clr Calc Pharmacy 77.65 Normal [facility] Comment on above: Result Comment: PERF ORMED BY: [place] [address] PATHOLOGIST HARDWARE INSTALLATION COORDINATOR FREDY PRICE M.D. Performed By: #### E SR, CRP #### [facility] [address] [place] [address] [place] GFR/1.73 sq M.predicted MDRD (S/P/Bld) [Vol rate/Area] mL/min/{1.73_m2} Normal [facility] Comment on above: Performed By: #### E SR, CRP #### [facility] [address] [place] [address] [place] Glucose [Mass/Vol] 83 mg/dL Normal 70-100 [facility] Comment on above: Result Comment: [place] Glucose Reference Range is dependent on time and content of last meal. Glucose of more than 200 mg/dL in a nonstressed, ambulatory subject supports the diagnosis of Diabetes Mellitus. ADA recommended reference range Performed By: #### E SR, CRP #### [facility] [address] [place] [address] [place] Potassium [Moles/Vol] 3.3 mmol/L Low 3.5-5.1 [facility] Comment on above: Performed By: #### E SR, CRP #### [facility] [address] [place] [address] [place] Sodium [Moles/Vol] 139 mmol/L Normal 136-145 [facility] Comment on above: Performed By: #### E SR, CRP #### [address] Urea nitrogen [Mass/Vol] 20 mg/dL Normal 7-25 [facility] Comment on above: Performed By: #### E SR, CRP #### [address] C-Reactive Proteinon 023 C-Reactive Protein 28.9 mg/dL High 0.0-0.5 [facility] Comment on above: Result Comment: PERF ORMED BY: [place] [address] PATHOLOGIST HARDWARE INSTALLATION COORDINATOR FREDY PRICE M.D. Performed By: #### C RP, ESR #### [address] CBC AUTO DIFFon 03-26-2023 Basophils/100 WBC (Bld) 0.2 % Normal . [facility] Comment on above: Performed By: #### S EDR #### [facility] [address] [place] [address] [address] Virgil Purdy Performed By: #### E SR, CRP #### [address] Erythrocyte distribution width (RBC) [Ratio] 14.5 % Normal 11.9-15.3 [facility] Comment on above: Performed By: #### S EDR #### [facility] [address] [place] [address] [address] Virgil Purdy Performed By: #### E SR, CRP #### [facility] [address] [place] [address] [place] BASO # 0.0 103/ul Normal 0.0-0.1 [facility] Comment on above: Performed By: #### S EDR #### [facility] [address] [place] [address] [address] Virgil Purdy EO # 0.1 103/ul Normal 0.0-0.7 [facility] Comment on above: Performed By: #### S EDR #### [facility] [address] [place] [address] [address] Virgil Purdy Eosinophils/100 WBC (Bld) 0.3 % Critically low 0.9-7.0 [facility] Comment on above: Performed By: #### S EDR #### [facility] [address] [place] [address] [address] Virgil Purdy Hematocrit (Bld) [Volume fraction] 31.0 % Critically low 36.0-48.0 [facility] Comment on above: Performed By: #### S EDR #### [facility] [address] [place] [address] Dr. Virgil Purdy Hemoglobin (Bld) [Mass/Vol] 10.2 g/dL Critically low 12.0-16.0 [facility] Comment on above: Performed By: #### S EDR #### [facility] [address] [place] [address] Dr. Virgil Purdy IG # 0.42 10e3/ul Critically high 0.00-0.03 [facility] Comment on above: Performed By: #### S EDR #### [facility] [address] [place] [address] Dr. Virgil Purdy IG % 2.4 % Critically high 0.0-0.5 [facility] Comment on above: Performed By: #### S EDR #### [facility] [address] [place] [address] Dr. Virgil Purdy LYMPH # 0.9 103/ul Critically low 1.2-3.8 [facility] Comment on above: Performed By: #### S EDR #### [facility] [address] [place] [address] Dr. Virgil Purdy Lymphocytes/100 WBC (Bld) 5.0 % Critically low 20.5-60.0 [facility] Comment on above: Performed By: #### S EDR #### [facility] [address] [place] [address] Dr. Virgil Purdy MANUAL DIFF REQ NO Normal [facility] Comment on above: Performed By: #### S EDR #### [facility] [address] [place] [address] [address] Virgil Purdy MCH (RBC) [Entitic mass] 27.9 pg Normal 26.7-34.0 [facility] Comment on above: Performed By: #### S EDR #### [facility] [address] [place] [address] [address] Virgil Purdy MCHC (RBC) [Mass/Vol] 32.9 g/dL Normal 29.9-35.2 [facility] Comment on above: Performed By: #### S EDR #### [facility] [address] [place] [address] [address] Virgil Purdy MCV (RBC) [Entitic vol] 84.9 fL Normal 81.0-99.0 [facility] Comment on above: Performed By: #### S EDR #### [facility] [address] [place] [address] Dr. Virgil Purdy MONO # 1.1 103/ul Critically high 0.3-0.8 [facility] Comment on above: Performed By: #### S EDR #### [facility] [address] [place] [address] [address] Virgil Purdy Monocytes/100 WBC (Bld) 6.4 % Normal 1.7-12.0 [facility] Comment on above: Performed By: #### S EDR #### [facility] [address] [place] [address] Dr. Virgil Purdy NEUT # 15.1 103/ul Critically high 1.4-6.5 [facility] Comment on above: Performed By: #### S EDR #### [facility] [address] [place] [address] Dr. Virgil Purdy Neutrophils/100 WBC (Bld) 85.7 % Critically high 43.0-75.0 [facility] Comment on above: Performed By: #### S EDR #### [facility] [address] [place] [address] Dr. Virgil Purdy Platelet mean volume (Bld) [Entitic vol] 11.2 fL Normal 9.5-13.5 [facility] Comment on above: Performed By: #### S EDR #### [facility] [address] [place] [address] [address] Virgil Purdy PLT 244 103/ul Normal 150-450 [facility] Comment on above: Performed By: #### S EDR #### [facility] [address] [place] [address] [address] Virgil Purdy RBC 3.65 106/ul Critically low 4.20-5.40 [facility] Comment on above: Performed By: #### S EDR #### [facility] [address] [place] [address] [address] Virgil Purdy WBC 17.7 103/ul Critically high 4.0-11.0 [facility] Comment on above: Performed By: #### S EDR #### [facility] [address] [place] [address] [address] Virgil Purdy CRPon 03-26-2023 CRP 53.8 mg/dL Critically high <=1.0 [facility] Comment on above: Performed By: #### P T #### [facility] [address] [place] [address] [address] Virgil Purdy Complete Blood Count Auto Di ffon 03-26-2023 Basophils (Bld) [#/Vol] 0.0 10*3/uL Normal 0.0-0.2 [facility] Comment on above: Result Comment: PERF ORMED BY: [place] [address] PATHOLOGIST HARDWARE INSTALLATION COORDINATOR FREDY PRICE M.D. Performed By: #### E SR, CRP #### [facility] [address] [place] [address] [place] Eosinophils (Bld) [#/Vol] 0.1 10*3/uL Normal 0.0-0.45 [facility] Comment on above: Performed By: #### E SR, CRP #### [facility] [address] [place] [address] [place] Eosinophils/100 WBC (Bld) 0.5 % Normal . [facility] Comment on above: Performed By: #### E SR, CRP #### [facility] [address] Hematocrit (Bld) [Volume fraction] 36.2 % Normal 34.0-46.4 [facility] Comment on above: Performed By: #### E SR, CRP #### [facility] [address] Hemoglobin (Bld) [Mass/Vol] 11.5 g/dL Low 11.8-15.4 [facility] Comment on above: Performed By: #### E SR, CRP #### [facility] [address] [place] [address] [place] Lymphocytes (Bld) [#/Vol] 0.9 10*3/uL Low 1.00-4.8 [facility] Comment on above: Performed By: #### E SR, CRP #### [address] Lymphocytes/100 WBC (Bld) 4.2 % Normal . [facility] Comment on above: Performed By: #### E SR, CRP #### [facility] [address] [place] [address] [place] MCH (RBC) [Entitic mass] 27.0 pg Normal 24.7-34.3 [facility] Comment on above: Performed By: #### E SR, CRP #### [facility] [address] [place] [address] [place] MCV (RBC) [Entitic vol] 85.2 fL Normal 80-100 [facility] Comment on above: Performed By: #### E SR, CRP #### [facility] [address] [place] [address] Mean Corpuscular HGB Conc 31.7 g/dL Low 32.0-35.0 [facility] Comment on above: Performed By: #### E SR, CRP #### [facility] [address] [place] [address] [place] Monocytes (Bld) [#/Vol] 1.0 10*3/uL High 0.0-0.8 [facility] Comment on above: Performed By: #### E SR, CRP #### [facility] [address] [place] [id number] [place] Monocytes/100 WBC (Bld) 4.7 % Normal . [facility] Comment on above: Performed By: #### E SR, CRP #### [facility] [address] [place] [address] [place] Neutrophils (Bld) [#/Vol] 18.6 10*3/uL High 1.8-7.7 [facility] Comment on above: Performed By: #### E SR, CRP #### [facility] [address] Neutrophils/100 WBC (Bld) 90.4 % Normal . [facility] Comment on above: Performed By: #### E SR, CRP #### [facility] [address] NRBC% 0.1 /100{WBC} Normal 0-0.5 [facility] Comment on above: Performed By: #### E SR, CRP #### [facility] [address] [place] [address] [place] Platelet mean volume (Bld) [Entitic vol] 8.7 fL Normal 6.3-10.7 [facility] Comment on above: Performed By: #### E SR, CRP #### [facility] [address] [place] [address] [place] Platelets (Bld) [#/Vol] 282 10*3/uL Normal 150-450 [facility] Comment on above: Performed By: #### E SR, CRP #### [facility] [address] [place] [address] [place] RBC (Bld) [#/Vol] 4.25 10*6/uL Normal 3.60-5.00 [facility] Comment on above: Performed By: #### E SR, CRP #### [facility] [address] [place] [address] [place] WBC (Bld) [#/Vol] 20.6 10*3/uL High 3.8-11.6 [facility] Comment on above: Performed By: #### E SR, CRP #### [facility] [address] Erythrocyte Sedimentation Ra charisma 03-26-2023 ESR (Bld) [Velocity] 84 mm/h High 0-29 [facility] Comment on above: Result Comment: PERF ORMED BY: [place] [address] PATHOLOGIST HARDWARE INSTALLATION COORDINATOR FREDY PRICE M.D. Performed By: #### C RP, ESR #### [address] Lactic Acidon 03-26-2023 Lactate [Moles/Vol] 1.8 mmol/L Normal 0.5-2.2 [facility] Comment on above: Result Comment: PERF ORMED BY: [place] [address] PATHOLOGIST HARDWARE INSTALLATION COORDINATOR FREDY PRICE M.D. Performed By: #### E SR, CRP #### [address] OCC BLD IMMUNO SCREENon 03-16 OCCULT BLOOD Negative Normal NEGATIVE [facility] Comment on above: Performed By: #### S EDR #### [facility] [address] [place] [address] Dr. Virgil Purdy PROF 14(COMP METB)on 023 Albumin [Mass/Vol] 1.6 g/dL Critically low 3.4-5.0 [facility] Comment on above: Performed By: #### P T #### [facility] [address] [address] [address] Virgil Purdy Albumin/Globulin [Mass ratio] 0.4 {ratio} Normal [facility] Comment on above: Performed By: #### P T #### [facility] [address] [address] [address] Virgil Purdy ALP [Catalytic activity/Vol] 76 U/L Normal 46-116 [facility] Comment on above: Performed By: #### P T #### [facility] [address] [place] [address] Dr. Virgil Purdy ALT [Catalytic activity/Vol] 14 U/L Normal 14-59 [facility] Comment on above: Performed By: #### P T #### [facility] [address] [place] [address] Dr. Virgil Purdy Anion gap [Moles/Vol] 12.6 mmol/L Normal [facility] Comment on above: Performed By: #### P T #### [facility] [address] [place] [address] Dr. Virgil Purdy AST [Catalytic activity/Vol] 20 U/L Normal 15-37 [facility] Comment on above: Performed By: #### P T #### [facility] [address] [place] [address] Dr. Virgil Purdy Bilirubin [Mass/Vol] 0.4 mg/dL Normal 0.2-1.0 [facility] Comment on above: Performed By: #### P T #### [facility] [address] [place] [address] Dr. Virgil Purdy Calcium [Mass/Vol] 8.1 mg/dL Critically low 8.5-10.1 [facility] Comment on above: Performed By: #### P T #### [facility] [address] [place] [address] Dr. Virgil Purdy Chloride [Moles/Vol] 105 mmol/L Normal 98-107 [facility] Comment on above: Performed By: #### P T #### [facility] [address] [place] [address] Dr. Virgil Purdy CO2 [Moles/Vol] 22.9 mmol/L Normal 21.0-32.0 [facility] Comment on above: Performed By: #### P T #### [facility] [address] [place] [address] Dr. Virgil Purdy Creatinine [Mass/Vol] 1.14 mg/dL Critically high 0.55-1.02 [facility] Comment on above: Performed By: #### P T #### [facility] [address] [place] [address] Dr. Virgil Purdy EGFR-AF ICELANDIC 60 mL/min/1.73m2 Normal >=60 [facility] Comment on above: Performed By: #### P T #### [facility] [address] [address] [address] Virgil Purdy EGFR-NON AF ICELANDIC 49 mL/min/1.73m2 Critically low >=60 [facility] Comment on above: Performed By: #### P T #### [facility] [address] [address] [address] Virgil Purdy Globulin (S) [Mass/Vol] 4.1 g/dL Normal [facility] Comment on above: Performed By: #### P T #### [facility] [address] [address] [address] Virgil Purdy Glucose [Mass/Vol] 112 mg/dL Critically high 74-106 [facility] Comment on above: Performed By: #### P T #### [facility] [address] [address] [address] Virgil Purdy Potassium [Moles/Vol] 3.5 mmol/L Normal 3.5-5.1 [facility] Comment on above: Performed By: #### P T #### [facility] [address] [address] [address] Virgil Purdy Protein [Mass/Vol] 5.7 g/dL Critically low 6.4-8.2 [facility] Comment on above: Performed By: #### P T #### [facility] [address] [address] [address] Virgil Purdy Sodium [Moles/Vol] 137 mmol/L Normal 136-145 [facility] Comment on above: Performed By: #### P T #### [facility] [address] [address] [address] Virgil Purdy Urea nitrogen [Mass/Vol] 26.0 mg/dL Critically high 7.0-18.0 [facility] Comment on above: Performed By: #### P T #### [facility] [address] [address] [address] Virgil Purdy Urea nitrogen/Creatinine [Mass ratio] 22.8 mg/mg Normal [facility] Comment on above: Performed By: #### P T #### [facility] [address] [place] [address] Dr. Virgil Purdy PTT HEPARIN MONITORon 2022 aPTT Coag (Bld) [Time] 40.4 s Normal 39.5-54.2 [facility] Comment on above: Performed By: #### S EDR #### [facility] [address] [place] [address] Dr. Virgil Purdy aPTT Coag (Bld) [Time] 37.9 s Critically low 39.5-54.2 [facility] Comment on above: Performed By: #### P T #### [facility] [address] [place] [address] Dr. Virgil Purdy SED RATE WESTERGRENon 2022 SED RATE 103 mm/hr Critically high <=30 [facility] Comment on above: Performed By: #### S EDR #### [facility] [address] [place] [address] Dr. Virgil Purdy CBC AUTO DIFFon 03-25-2023 BASO # 0.1 103/ul Normal 0.0-0.1 [facility] Comment on above: Performed By: #### C BC #### [facility] [address] [place] [address] Dr. Virgil Purdy Basophils/100 WBC (Bld) 0.3 % Normal 0.2-2.0 [facility] Comment on above: Performed By: #### C BC #### [facility] [address] [place] [address] Dr. Virgil Purdy EO # 0.0 103/ul Normal 0.0-0.7 [facility] Comment on above: Performed By: #### C BC #### [facility] [address] [place] [address] Dr. Virgil Purdy Eosinophils/100 WBC (Bld) 0.1 % Critically low 0.9-7.0 [facility] Comment on above: Performed By: #### C BC #### [facility] [address] [place] [address] Dr. Virgil Purdy Erythrocyte distribution width (RBC) [Ratio] 14.1 % Normal 11.0-15.0 [facility] Comment on above: Performed By: #### C BC #### [facility] [address] [place] [address] Dr. Virgil Purdy Hematocrit (Bld) [Volume fraction] 35.4 % Critically low 36.0-48.0 [facility] Comment on above: Performed By: #### C BC #### [facility] [address] [place] [address] Dr. Virgil Purdy Hemoglobin (Bld) [Mass/Vol] 11.5 g/dL Critically low 12.0-16.0 [facility] Comment on above: Performed By: #### C BC #### [facility] [address] [place] [address] Dr. Virgil Purdy IG # 0.14 10e3/ul Critically high 0.00-0.03 [facility] Comment on above: Performed By: #### C BC #### [facility] [address] [place] [address] Dr. Virgil Purdy IG % 0.7 % Critically high 0.0-0.5 [facility] Comment on above: Performed By: #### C BC #### [facility] [address] [place] [address] Dr. Virgil Purdy LYMPH # 0.6 103/ul Critically low 1.2-3.8 [facility] Comment on above: Performed By: #### C BC #### [facility] [address] [place] [address] Dr. Virgil Purdy Lymphocytes/100 WBC (Bld) 3.2 % Critically low 20.5-60.0 [facility] Comment on above: Performed By: #### C BC #### [facility] [address] [place] [address] Dr. Virgil Purdy MANUAL DIFF REQ NO Normal [facility] Comment on above: Performed By: #### C BC #### [facility] [address] [address] [address] Virgil Purdy MCH (RBC) [Entitic mass] 28.3 pg Normal 26.7-34.0 [facility] Comment on above: Performed By: #### C BC #### [facility] [address] [place] [address] Dr. Virgil Purdy MCHC (RBC) [Mass/Vol] 32.5 g/dL Normal 29.9-35.2 [facility] Comment on above: Performed By: #### C BC #### [facility] [address] [place] [address] Dr. Virgil Purdy MCV (RBC) [Entitic vol] 87.2 fL Normal 81.0-99.0 [facility] Comment on above: Performed By: #### C BC #### [facility] [address] [place] [address] Dr. Virgil Purdy MONO # 1.2 103/ul Critically high 0.3-0.8 [facility] Comment on above: Performed By: #### C BC #### [facility] [address] [place] [address] Dr. Virgil Purdy Monocytes/100 WBC (Bld) 6.3 % Normal 1.7-12.0 [facility] Comment on above: Performed By: #### C BC #### [facility] [address] [place] [address] Dr. Virgil Purdy NEUT # 17.5 103/ul Critically high 1.4-6.5 [facility] Comment on above: Performed By: #### C BC #### [facility] [address] [place] [address] Dr. Virgil Purdy Neutrophils/100 WBC (Bld) 89.4 % Critically high 43.0-75.0 [facility] Comment on above: Performed By: #### C BC #### [facility] [address] [place] [address] Dr. Virgil Purdy Platelet mean volume (Bld) [Entitic vol] 11.5 fL Normal 9.5-13.5 [facility] Comment on above: Performed By: #### C BC #### [facility] [address] [place] [address] Dr. Virgil Purdy PLT 224 103/ul Normal 150-450 [facility] Comment on above: Performed By: #### C BC #### [facility] [address] [place] [address] Dr. Virgil Purdy RBC 4.06 106/ul Critically low 4.20-5.40 [facility] Comment on above: Performed By: #### C BC #### [facility] [address] [place] [address] Dr. Virgil Purdy WBC 19.6 103/ul Critically high 4.0-11.0 [facility] Comment on above: Performed By: #### C BC #### [facility] [address] [place] [address] Dr. Virgil Purdy CBC W MANUAL DIFFon 03-25-20 23 ATYPICAL LYMPH # Normal [facility] Comment on above: Performed By: #### C BCMAN #### [facility] [address] [place] [address] Dr. Virgil Purdy ATYPICAL LYMPH % Normal [facility] Comment on above: Performed By: #### C BCMAN #### [facility] [address] [place] [address] Dr. Virgil Purdy BAND # Normal 0.0-0.3 [facility] Comment on above: Performed By: #### C BCMAN #### [facility] [address] [place] [address] Dr. Virgil Purdy BAND % Normal 0-5 [facility] Comment on above: Performed By: #### C BCMAN #### [facility] [address] [place] [address] Dr. Virgil Purdy BASOM # 0.00 103/ul Normal 0.00-0.10 [facility] Comment on above: Performed By: #### C BCMAN #### [facility] [address] [place] [address] Dr. Virgil Purdy BASOM % 0.0 % Critically low 0.2-2.0 [facility] Comment on above: Performed By: #### C BCMAN #### [facility] [address] [address] [address] Virgil Purdy BLAST # Normal [facility] Comment on above: Performed By: #### C BCMAN #### [facility] [address] [place] [address] Dr. Virgil Purdy BLAST % Normal [facility] Comment on above: Performed By: #### C BCMAN #### [facility] [address] [address] [address] Virgil Purdy CORRECTED WBC Normal 4.0-11.0 [facility] Comment on above: Performed By: #### C BCMAN #### [facility] [address] [place] [address] Dr. Virgil Purdy EOS # 0.00 103/ul Normal 0.00-0.70 [facility] Comment on above: Performed By: #### C BCDARIUS #### [facility] [address] [place] [address] Dr. Virgil Purdy EOS% 0.0 % Critically low 0.9-7.0 [facility] Comment on above: Performed By: #### C BCDARIUS #### [facility] [address] [place] [address] Dr. Virgil Purdy HCT 33.7 % Critically low 36.0-48.0 [facility] Comment on above: Performed By: #### C BCDARIUS #### [facility] [address] [place] [address] Dr. Virgil Purdy HGB 11.0 g/dl Critically low 12.0-16.0 [facility] Comment on above: Performed By: #### C BCMAN #### [facility] [address] [place] [address] Dr. Virgil Purdy LYMPHM # 1.10 103/ul Critically low 1.20-3.80 [facility] Comment on above: Performed By: #### C BCMAN #### [facility] [address] [place] [address] Dr. Virgil Purdy LYMPHM% 6.0 % Critically low 20.5-60.0 [facility] Comment on above: Performed By: #### C GERSON #### [facility] [address] [place] [address] Dr. Virgil Purdy MCH 27.8 pg Normal 26.7-34.0 [facility] Comment on above: Performed By: #### C GERSON #### [facility] [address] [place] [address] Dr. Virgil Purdy MCHC 32.6 g/dl Normal 29.9-35.2 [facility] Comment on above: Performed By: #### C GERSON #### [facility] [address] [place] [address] Dr. Virgil Purdy MCV 85.1 fL Normal 81.0-99.0 [facility] Comment on above: Performed By: #### C GERSON #### [facility] [address] [place] [address] Dr. Virgil Purdy METAMYELOCYTE # Normal [facility] Comment on above: Performed By: #### C GERSON #### [facility] [address] [place] [address] Dr. Virgil Purdy METAMYELOCYTE % Normal [facility] Comment on above: Performed By: #### C GERSON #### [facility] [address] [place] [address] Dr. Virgil Purdy MONOM# 0.73 103/ul Normal 0.30-0.80 [facility] Comment on above: Performed By: #### C GERSON #### [facility] [address] [place] [address] Dr. Virgil Purdy MONOM% 4.0 % Normal 1.7-12.0 [facility] Comment on above: Performed By: #### C GERSON #### [facility] [address] [place] [address] Dr. Virgil Purdy MPV 11.1 fL Normal 9.5-13.5 [facility] Comment on above: Performed By: #### C GERSON #### [facility] [address] [place] [address] Dr. Virgil Purdy MYELOCYTE # Normal [facility] Comment on above: Performed By: #### C GERSON #### [facility] [address] [address] [address] Virgil Purdy MYELOCYTE % Normal [facility] Comment on above: Performed By: #### C GERSON #### [facility] [address] [address] [address] Virgil Purdy NRBC Normal [facility] Comment on above: Performed By: #### C GERSON #### [facility] [address] [address] [address] Virgil Purdy PLT 230 103/ul Normal 150-450 [facility] Comment on above: Performed By: #### C GERSON #### [facility] [address] [address] [address] Virgil Purdy RBC 3.96 106/ul Critically low 4.20-5.40 [facility] Comment on above: Performed By: #### C GERSON #### [facility] [address] [address] [address] Virgil Purdy RDW 14.0 % Normal 11.0-15.0 [facility] Comment on above: Performed By: #### C GERSON #### [facility] [address] [place] [address] Dr. Virgil Purdy SEG # 16.47 103/ul Critically high 1.40-6.50 [facility] Comment on above: Performed By: #### C GERSON #### [facility] [address] [address] [address] Virgil Purdy SEG % 90.0 % Critically high 43.0-75.0 [facility] Comment on above: Result Comment: vacu oles seen Performed By: #### C GERSON #### [facility] [address] [place] [address] Dr. Virgil Purdy WBC 18.3 103/ul Critically high 4.0-11.0 [facility] Comment on above: Performed By: #### C GERSON #### [facility] [address] [place] [address] Dr. Virgil Purdy CRPon 03-25-2023 CRP [Mass/Vol] mg/L Critically high <=1.0 [facility] Comment on above: Performed By: #### S EDR #### [facility] [address] [address] [address] Virgil Purdy CULTURE BLOODon 03-25-2023 Microscopic examination of blood, culture Culture Observations: NO GROWTH AT 5 DAYS. Normal [facility] Comment on above: Performed By: #### L ACT #### [facility] [address] [address] [address] Virgil Purdy Microscopic examination of blood, culture Culture Observations: NO GROWTH AT [address] [facility] Comment on above: Performed By: #### L ACT #### [facility] [address] [address] [address] Virgil Purdy ECHOCARDIO M/2D COMPLETEon 0 03-25-2023 ECHOCARDIO M/2D COMPLETE Patient Name Site Name LAURA TYLER [facility] Account No Medical Record Number Age Sex Date Time [id number] [facility]:[id number] F 03/25/2023 11:25 At the Request Of AMILCAR SMITH ECHOCARDIOGRAM REPORT PROCEDURE: CARDIO PULMONARY ECHOCARDIO M/2D COMP INDICATIONS: Afib COMPARISON: None. DESCRIPTION: COMPLETE ECHOCARDIOGRAM Real-time transthoracic echocardiography with 2D, M-mode, spectral and color flow Doppler performed. QUALITY: Technical quality was adequate. LEFT VENTRICLE: Normal chamber size. Normal left ventricular wall thickness. Global left ventricular systolic function is normal. LV EF: Estimated left ventricular ejection fraction is 55% DIASTOLIC: Diastolic function is indeterminate. ATRIAL SEPTUM: LEFT ATRIUM: Moderate dilatation. RIGHT ATRIUM: Mild dilatation. RIGHT VENTRICLE: Normal chamber size. Normal right ventricular systolic function. TRICUSPID VALVE: Normal mobility and thickness. No stenosis with mild regurgitation. Mild pulmonary hypertension. RVSP 35 mmHg MITRAL VALVE: Normal mobility and thickness. No evidence of mitral valve stenosis. There is no mitral annular calcification. Mild to moderate mitral regurgitation. AORTIC VALVE: Normal trileaflet appearance. No visible sclerosis. Normal leaflet mobility. No evidence of aortic valve stenosis. No aortic regurgitation. AORTIC ROOT: Normal diameter and appearance. PULMONIC VALVE: Normal thickness and mobility. No stenosis. No regurgitation. PERICARDIUM: No evidence of pericardial effusion. IVC: Collapses with inspirations. Normal size PLEURA: CONCLUSION: 1. Normal left ventricular systolic function. LVEF is 55%. 2. Normal right ventricular size and systolic function. 3. Mild to moderate biatrial dilatation. 4. Mild to moderate mitral regurgitation. 5. Mild tricuspid regurgitation. 6. Mildly elevated right-sided pressures. 7. The patient appears to be in sinus rhythm. Adult Echocardiography Procedure Report Left Ventricle LVEDD (3.7 - 5.6 cm): 4.51 cm LVESD (2.2 - 4.0 cm): 3.07 cm LVIVS thickness (0.6 - 1.2 cm): 0.72 cm LVPW thickness (0.5 - 1.0 cm): 0.70 cm e': 0.16 m/s E - e': 4.67 LVOT Max Gradient: 2.03 mm[Hg] Peak Velocity (LVOT): 0.71 m/s Mean Velocity (LVOT): 0.52 m/s LVOT Diameter 2.05 cm Left Ventricular Ejection Fraction: 55 % Left Atrium LA Volume Index (2D A2C): 120.63 ml, 120.63 ml Left Atrium Systolic Dimension: 3.74 cm Mitral Valve MV E to A Ratio: 2.14, 1.82 Mitral Valve A-Wave Peak Velocity: 0.38 m/s, 0.40 m/s Mitral Valve E-Wave Peak Velocity: 0.81 m/s, 0.72 m/s Right Ventricle RV Internal Diastolic Dimension: 3.40 cm Aorta AO Root Diam: 2.76 cm Ascending Ao Diam: 2.83 cm Aortic Valve AoV Area (Peak Karl): 2.72 cm2, 2.72 cm2 AoV Area (VTI): 2.62 cm2, 2.62 cm2 Peak Velocity(Antegrade Flow): 0.87 m/s Peak Gradient(Antegrade Flow): 3.02 mm[Hg] Mean Velocity(Antegrade Flow): 0.61 m/s Mean Gradient(Antegrade Flow): 1.65 mm[Hg] Velocity Time Integral: 16.22 cm Tricuspid Valve Peak Velocity (Regurgitant Flow): 1.93 m/s, 2.18 m/s, 2.82 m/s Pulmonic Valve Peak Velocity: 0.82 m/s, 0.88 m/s Peak Gradient: 2.66 mm[Hg], 3.08 mm[Hg] Right Atrium Right Atrium Systolic Pressure: 53.07 ml, 53.07 ml Dictated by: Josesito Manuel M.D. on 03/25/2023 at 18:14 Approved by: Josesito Manuel M.D. on 03/25/2023 at 18:19 Normal [facility] PROF 14(COMP METB)on 023 Albumin [Mass/Vol] 1.9 g/dL Critically low 3.4-5.0 Th e [facility] Comment on above: Performed By: #### S EDR #### [facility] [address] [address] [address] Virgil Purdy Albumin/Globulin [Mass ratio] 0.4 {ratio} Normal [facility] Comment on above: Performed By: #### S EDR #### [facility] [address] [place] [address] Dr. Virgil Purdy ALP [Catalytic activity/Vol] 77 U/L Normal 46-116 [facility] Comment on above: Performed By: #### S EDR #### [facility] [address] [address] [address] Virgil Purdy ALT [Catalytic activity/Vol] 14 U/L Normal 14-59 [facility] Comment on above: Performed By: #### S EDR #### [facility] [address] [address] [address] Virgil Purdy Anion gap [Moles/Vol] 13.0 mmol/L Normal [facility] Comment on above: Performed By: #### S EDR #### [facility] [address] [address] [address] Virgil Purdy AST [Catalytic activity/Vol] 11 U/L Critically low 15-37 [facility] Comment on above: Performed By: #### S EDR #### [facility] [address] [address] [address] Virgil Purdy Bilirubin [Mass/Vol] 0.5 mg/dL Normal 0.2-1.0 [facility] Comment on above: Performed By: #### S EDR #### [facility] [address] [address] [address] Virgil Purdy Calcium [Mass/Vol] 8.7 mg/dL Normal 8.5-10.1 [facility] Comment on above: Performed By: #### S EDR #### [facility] [address] [address] [address] Virgil Purdy Chloride [Moles/Vol] 100 mmol/L Normal 98-107 [facility] Comment on above: Performed By: #### S EDR #### [facility] [address] [address] [address] Virgil Purdy CO2 [Moles/Vol] 24.3 mmol/L Normal 21.0-32.0 [facility] Comment on above: Performed By: #### S EDR #### [facility] [address] [address] [address] Virgil Purdy Creatinine [Mass/Vol] 1.18 mg/dL Critically high 0.55-1.02 [facility] Comment on above: Performed By: #### S EDR #### [facility] [address] [address] [address] Virgil Purdy EGFR-AF ICELANDIC 58 mL/min/1.73m2 Critically low >=60 [facility] Comment on above: Performed By: #### S EDR #### [facility] [address] [address] [address] Virgil Purdy EGFR-NON AF ICELANDIC 48 mL/min/1.73m2 Critically low >=60 [facility] Comment on above: Performed By: #### S EDR #### [facility] [address] [address] [address] Virgil Purdy Globulin (S) [Mass/Vol] 4.3 g/dL Normal [facility] Comment on above: Performed By: #### S EDR #### [facility] [address] [address] [address] Virgil Purdy Glucose [Mass/Vol] 92 mg/dL Normal 74-106 [facility] Comment on above: Performed By: #### S EDR #### [facility] [address] [address] [address] Virgil Purdy Potassium [Moles/Vol] 3.3 mmol/L Critically low 3.5-5.1 [facility] Comment on above: Performed By: #### S EDR #### [facility] [address] [place] [address] Dr. Virgil Purdy Protein [Mass/Vol] 6.2 g/dL Critically low 6.4-8.2 [facility] Comment on above: Performed By: #### S EDR #### [facility] [address] [place] [address] Dr. Virgil Purdy Sodium [Moles/Vol] 134 mmol/L Critically low 136-145 [facility] Comment on above: Performed By: #### S EDR #### [facility] [address] [place] [address] Dr. Virgil Purdy Urea nitrogen [Mass/Vol] 25.0 mg/dL Critically high 7.0-18.0 [facility] Comment on above: Performed By: #### S EDR #### [facility] [address] [place] [address] Dr. Virgil Purdy Urea nitrogen/Creatinine [Mass ratio] 21.2 mg/mg Normal [facility] Comment on above: Performed By: #### S EDR #### [facility] [address] [place] [address] Dr. Virgil Purdy PROTIMEon 03-25-2023 INR Coag (PPP) [Relative time] 0.96 {INR} Normal [facility] Comment on above: Performed By: #### P T #### [facility] [address] [place] [address] Dr. Virgil Purdy INR GUIDELINES SEE BELOW Normal [facility] Comment on above: Result Comment: CORAZON RED INR: 2.0 - 3.0 CONDITIONS NOT LISTED BELOW 2.5 - 3.5 FOR PROSTHETIC HEART VALVE REPLACEMENT 2.5 - 3.5 RECURRENT THROMBOSIS Performed By: #### P T #### [facility] [address] [place] [address] Dr. Virgil Purdy PT Coag (PPP) [Time] 10.2 s Normal 9.0-11.6 [facility] Comment on above: Performed By: #### P T #### [facility] [address] [place] [address] Dr. Virgil Purdy PTT HEPARIN MONITORon 2022 aPTT Coag (Bld) [Time] 38.5 s Critically low 39.5-54.2 [facility] Comment on above: Performed By: #### P T #### [facility] [address] [place] [address] Dr. Virgil Purdy aPTT Coag (Bld) [Time] 41.3 s Normal 39.5-54.2 [facility] Comment on above: Performed By: #### L ACT #### [facility] [address] [place] [address] Dr. Virgil Purdy aPTT Coag (Bld) [Time] 41.0 s Normal 39.5-54.2 [facility] Comment on above: Performed By: #### P TTHEP #### [facility] [address] [place] [address] Dr. Virgil Purdy SED RATE WESTERGRENon 2022 SED RATE 82 mm/hr Critically high <=30 [facility] Comment on above: Performed By: #### S EDR #### [facility] [address] [place] [address] Dr. Virgil Purdy US EXT NON VASC LIMITED LTon 03-25-2023 US EXT NON VASC LIMITED LT EXAMINATION: US EXT NON VASC LIMITED LT HISTORY: Cellulitis of left upper limb , left arm pain, redness, swelling since injury one week ago COMPARISON: No relevant comparison available. FINDINGS: Marked subcutaneous edema within left forearm at area of pain. No appreciable hematoma, mass, or encapsulated fluid collection. Color Doppler demonstrates blood flow within the soft tissues. IMPRESSION: 1. Marked subcutaneous edema suggestive of cellulitis versus remote hematoma/bruising. Electronically authenticated by: AC LOVING Date: 2023-03-25 10:20 Normal [facility] CBC W MANUAL DIFFon 03-24-20 23 ATYPICAL LYMPH # Normal [facility] Comment on above: Performed By: #### S EDR #### [facility] [address] [address] [address] Virgil Purdy ATYPICAL LYMPH % Normal [facility] Comment on above: Performed By: #### S EDR #### [facility] [address] [place] [address] Dr. Virgil Purdy BAND # 1.6 103/ul Critically high 0.0-0.3 [facility] Comment on above: Performed By: #### S EDR #### [facility] [address] [place] [address] Dr. Virgil Purdy BAND % 8 % Critically high 0-5 [facility] Comment on above: Performed By: #### S EDR #### [facility] [address] [place] [address] Dr. Virgil Purdy BASOM # 0.00 103/ul Normal 0.00-0.10 [facility] Comment on above: Performed By: #### S EDR #### [facility] [address] [place] [address] Dr. Virgil Purdy BASOM % 0.0 % Critically low 0.2-2.0 [facility] Comment on above: Performed By: #### S EDR #### [facility] [address] [place] [address] Dr. Virgil Purdy BLAST # Normal [facility] Comment on above: Performed By: #### S EDR #### [facility] [address] [place] [address] Dr. Virgil Purdy BLAST % Normal [facility] Comment on above: Performed By: #### S EDR #### [facility] [address] [place] [address] Dr. Virgil Purdy CORRECTED WBC Normal 4.0-11.0 [facility] Comment on above: Performed By: #### S EDR #### [facility] [address] [place] [address] Dr. Virgil Purdy EOS # 0.19 103/ul Normal 0.00-0.70 [facility] Comment on above: Performed By: #### S EDR #### [facility] [address] [place] [address] Dr. Virgil Purdy EOS% 1.0 % Normal 0.9-7.0 [facility] Comment on above: Performed By: #### S EDR #### [facility] [address] [place] [address] Dr. Virgil Purdy HCT 43.4 % Normal 36.0-48.0 [facility] Comment on above: Performed By: #### S EDR #### [facility] [address] [place] [address] Dr. Virgil Purdy HGB 14.5 g/dl Normal 12.0-16.0 [facility] Comment on above: Performed By: #### S EDR #### [facility] [address] [place] [address] Dr. Virgil Purdy LYMPHM # 1.36 103/ul Normal 1.20-3.80 [facility] Comment on above: Performed By: #### S EDR #### [facility] [address] [place] [address] Dr. Virgil Purdy LYMPHM% 7.0 % Critically low 20.5-60.0 [facility] Comment on above: Performed By: #### S EDR #### [facility] [address] [place] [address] Dr. Virgil Purdy MCH 28.0 pg Normal 26.7-34.0 [facility] Comment on above: Performed By: #### S EDR #### [facility] [address] [place] [address] Dr. Virgil Purdy MCHC 33.4 g/dl Normal 29.9-35.2 [facility] Comment on above: Performed By: #### S EDR #### [facility] [address] [place] [address] Dr. Virgil Purdy MCV 83.9 fL Normal 81.0-99.0 [facility] Comment on above: Performed By: #### S EDR #### [facility] [address] [place] [address] Dr. Virgil Purdy METAMYELOCYTE # Normal [facility] Comment on above: Performed By: #### S EDR #### [facility] [address] [place] [address] Dr. Virgil Purdy METAMYELOCYTE % Normal [facility] Comment on above: Performed By: #### S EDR #### [facility] [address] [place] [address] Dr. Virgil Purdy MONOM# 0.58 103/ul Normal 0.30-0.80 [facility] Comment on above: Performed By: #### S EDR #### [facility] [address] [place] [address] Dr. Virgil Purdy MONOM% 3.0 % Normal 1.7-12.0 [facility] Comment on above: Performed By: #### S EDR #### [facility] [address] [place] [address] Dr. Virgil Purdy MPV 11.1 fL Normal 9.5-13.5 [facility] Comment on above: Performed By: #### S EDR #### [facility] [address] [place] [address] Dr. Virgil Purdy MYELOCYTE # Normal [facility] Comment on above: Performed By: #### S EDR #### [facility] [address] [place] [address] Dr. Virgil Purdy MYELOCYTE % Normal [facility] Comment on above: Performed By: #### S EDR #### [facility] [address] [place] [address] Dr. Virgil Purdy NRBC Normal [facility] Comment on above: Performed By: #### S EDR #### [facility] [address] [place] [address] Dr. Virgil Purdy PLT 238 103/ul Normal 150-450 [facility] Comment on above: Performed By: #### S EDR #### [facility] [address] [place] [address] Dr. Virgil Purdy RBC 5.17 106/ul Normal 4.20-5.40 [facility] Comment on above: Performed By: #### S EDR #### [facility] [address] [address] [address] Virgil Purdy RDW 13.7 % Normal 11.0-15.0 [facility] Comment on above: Performed By: #### S EDR #### [facility] [address] [address] [address] Virgil Purdy SEG # 15.71 103/ul Critically high 1.40-6.50 [facility] Comment on above: Performed By: #### S EDR #### [facility] [address] [address] [address] Virgil Purdy SEG % 81.0 % Critically high 43.0-75.0 [facility] Comment on above: Performed By: #### S EDR #### [facility] [address] [place] [address] Dr. Virgil Purdy WBC 19.4 103/ul Critically high 4.0-11.0 [facility] Comment on above: Performed By: #### S EDR #### [facility] [address] [place] [address] Dr. Virgil Purdy CRPon 03-24-2023 CRP 53.6 mg/dL Critically high <=1.0 [facility] Comment on above: Performed By: #### B MP, URIC, CRP #### [facility] [address] [address] [address] Virgil Purdy CULTURE BLOODon 03-24-2023 Microscopic examination of blood, culture Culture Observations: NO GROWTH AT 5 DAYS. Normal [facility] Comment on above: Performed By: #### L ACT #### [facility] [address] [address] [address] Virgil Purdy Microscopic examination of blood, culture Culture Observations: NO GROWTH AT 5 DAYS. Normal [facility] Comment on above: Performed By: #### L ACT #### [facility] [address] [address] [address] Virgil Purdy LACTATE/LACTIC ACIDon 2022 Lactate [Moles/Vol] 1.4 mmol/L Normal 0.4-2.0 [facility] Comment on above: Performed By: #### L ACT #### [facility] [address] [place], [place] [address] Dr. Virgil Purdy MRI ARM LT WO CONon 03-24-20 MRI ARM LT WO CON EXAM: MRI ARM LT WO CON HISTORY: The patient is a 57-year-old female. Pain of left elbow joint COMPARISON: Radiographs from 10:05 AM. TECHNIQUE: The following imaging sequences were obtained through the left forearm: Coronal T1, STIR, GRE, fat-suppressed T1; sagittal STIR; axial PD, T2. Markers were placed at the proximal and distal extents of the area of concern. FINDINGS: This MRI scan of the left forearm does not include the elbow or wrist joints. There is edema within the subcutaneous tissues throughout the entire medial length of the left forearm, more extensive than the region indicated by the markers. There appears to be an elongated heterogeneous fluid collection throughout the length of this subcutaneous edema, although this is somewhat difficult to distinguish from the adjacent subcutaneous edema without the use of intravenous contrast. This may represent an elongated subcutaneous abscess. The extent of this suspected subcutaneous abscess could be better evaluated with a contrast-enhanced study. No fluid or edema is seen within the deeper soft tissues. No abnormal bone marrow edema is seen throughout the lengths of the shafts of the radius and ulna to indicate the presence of osteomyelitis or other osseous abnormalities. IMPRESSION: Suspected elongated abscess within the edematous medial subcutaneous tissues, and this could perhaps be better demonstrated with a contrast-enhanced study. Electronically authenticated by: LEE RODRÍGUEZ Date: 2023-03-24 17:45 Normal [facility] PROF CHEM 8 (BAS METB)on Anion gap [Moles/Vol] 16.0 mmol/L Normal [facility] Comment on above: Performed By: #### B MP, URIC, CRP #### [facility] [address] [place], [place] [address] Dr. Virgil Purdy Calcium [Mass/Vol] 10.4 mg/dL Critically high 8.5-10.1 [facility] Comment on above: Performed By: #### B MP, URIC, CRP #### [facility] [address] [place], [place] [address] Dr. Virgil Purdy Chloride [Moles/Vol] 97 mmol/L Critically low 98-107 [facility] Comment on above: Performed By: #### B MP, URIC, CRP #### [facility] [address] [address] [address] Virgil Purdy CO2 [Moles/Vol] 26.7 mmol/L Normal 21.0-32.0 [facility] Comment on above: Performed By: #### B MP, URIC, CRP #### [facility] [address] [address] [address] Virgil Purdy Creatinine [Mass/Vol] 1.36 mg/dL Critically high 0.55-1.02 [facility] Comment on above: Performed By: #### B MP, URIC, CRP #### [facility] [address] [place] [address] Dr. Virgil Purdy EGFR-AF ICELANDIC 49 mL/min/1.73m2 Critically low >=60 [facility] Comment on above: Performed By: #### B MP, URIC, CRP #### [facility] [address] [place] [address] Dr. Virgil Purdy EGFR-NON AF ICELANDIC 40 mL/min/1.73m2 Critically low >=60 [facility] Comment on above: Performed By: #### B MP, URIC, CRP #### [facility] [address] [place] [address] Dr. Virgil Purdy Glucose [Mass/Vol] 97 mg/dL Normal 74-106 [facility] Comment on above: Performed By: #### B MP, URIC, CRP #### [facility] [address] [place] [address] Dr. Virgil Purdy Potassium [Moles/Vol] 3.7 mmol/L Normal 3.5-5.1 [facility] Comment on above: Performed By: #### B MP, URIC, CRP #### [facility] [address] [place] [address] Dr. Virgil Purdy Sodium [Moles/Vol] 136 mmol/L Normal 136-145 [facility] Comment on above: Performed By: #### B MP, URIC, CRP #### [facility] [address] [address] [address] Virgil Purdy Urea nitrogen [Mass/Vol] 28.0 mg/dL Critically high 7.0-18.0 [facility] Comment on above: Performed By: #### B MP, URIC, CRP #### [facility] [address] [address] [address] Virgil Purdy Urea nitrogen/Creatinine [Mass ratio] 20.6 mg/mg Normal [facility] Comment on above: Performed By: #### B MP, URIC, CRP #### [facility] [address] [address] [address] Virgil Purdy PTT HEPARIN MONITORon 2022 aPTT Coag (Bld) [Time] 36.0 s Critically low 39.5-54.2 [facility] Comment on above: Performed By: #### P T #### [facility] [address] [place] [address] Dr. Virgil Purdy SED RATE WESTERGRENon 2022 SED RATE 78 mm/hr Critically high <=30 [facility] Comment on above: Performed By: #### S EDR #### [facility] [address] [address] [address] Virgil Purdy URIC ACID SERUMon 03-24-2023 Urate [Mass/Vol] 4.3 mg/dL Normal 2.6-6.0 [facility] Comment on above: Performed By: #### B MP, URIC, CRP #### [facility] [address] [place] [address] Dr. Virgil Purdy XR ANKLE HILLARY MIN 3 VIEWSon 1 XR ANKLE HILLARY MIN 3 VIEWS EXAMINATION: XR ANKLE HILLARY MIN 3 VIEWS, XR FOOT HILLARY MIN 3 VIEWS HISTORY: Arthralgia of the ankle and/or foot ; bilateral foot and ankle pain for 2 months COMPARISON: XR foot right 11/17/2021 FINDINGS: RIGHT FINDINGS: BONES: No significant arthropathy or acute abnormality. SOFT TISSUES: No visible soft tissue swelling. OTHER: Negative. LEFT FINDINGS: BONES: Subacute healing nondisplaced fracture of the distal fibula. SOFT TISSUES: No visible soft tissue swelling. OTHER: Negative. IMPRESSION: RIGHT CONCLUSION: No acute bone abnormality or significant degenerative changes. LEFT CONCLUSION: Healing, nondisplaced subacute fracture of the distal fibula. Electronically authenticated by: AC LOVING Date: 2022-08-22 10:41 Normal [facility] CBC AUTO DIFFon 08-19-2022 BASO # 0.1 103/ul Normal 0.0-0.1 [facility] Comment on above: Performed By: #### P T #### [facility] [address] [address] [address] Virgil Purdy Basophils/100 WBC (Bld) 1.1 % Normal 0.2-2.0 [facility] Comment on above: Performed By: #### P T #### [facility] [address] [place] [address] Dr. Virgil Purdy EO # 0.3 103/ul Normal 0.0-0.7 [facility] Comment on above: Performed By: #### P T #### [facility] [address] [address] [address] Virgil Purdy Eosinophils/100 WBC (Bld) 5.2 % Normal 0.9-7.0 [facility] Comment on above: Performed By: #### P T #### [facility] [address] [address] [address] Virgil Purdy Erythrocyte distribution width (RBC) [Ratio] 13.3 % Normal 11.0-15.0 [facility] Comment on above: Performed By: #### P T #### [facility] [address] [address] [address] Virgil Purdy Hematocrit (Bld) [Volume fraction] 44.0 % Normal 36.0-48.0 [facility] Comment on above: Performed By: #### P T #### [facility] [address] [place] [address] Dr. Virgil Purdy Hemoglobin (Bld) [Mass/Vol] 13.7 g/dL Normal 12.0-16.0 [facility] Comment on above: Performed By: #### P T #### [facility] [address] [place] [address] Dr. Virgil Purdy IG # 0.01 10e3/ul Normal 0.00-0.03 [facility] Comment on above: Performed By: #### P T #### [facility] [address] [place] [address] Dr. Virgil Purdy IG % 0.2 % Normal 0.0-0.5 [facility] Comment on above: Performed By: #### P T #### [facility] [address] [place] [address] Dr. Virgil Purdy LYMPH # 1.5 103/ul Normal 1.2-3.8 [facility] Comment on above: Performed By: #### P T #### [facility] [address] [place] [address] Dr. Virgil Purdy Lymphocytes/100 WBC (Bld) 26.8 % Normal 20.5-60.0 [facility] Comment on above: Performed By: #### P T #### [facility] [address] [place] [address] Dr. Virgil Purdy MANUAL DIFF REQ NO Normal [facility] Comment on above: Performed By: #### P T #### [facility] [address] [place] [address] Dr. Virgil Purdy MCH (RBC) [Entitic mass] 28.2 pg Normal 26.7-34.0 [facility] Comment on above: Performed By: #### P T #### [facility] [address] [place] [address] Dr. Virgil Purdy MCHC (RBC) [Mass/Vol] 31.1 g/dL Normal 29.9-35.2 [facility] Comment on above: Performed By: #### P T #### [facility] [address] [place] [address] Dr. Virgil Purdy MCV (RBC) [Entitic vol] 90.7 fL Normal 81.0-99.0 [facility] Comment on above: Performed By: #### P T #### [facility] [address] [place] [address] Dr. Virgil Purdy MONO # 0.5 103/ul Normal 0.3-0.8 [facility] Comment on above: Performed By: #### P T #### [facility] [address] [place] [address] Dr. Virgil Purdy Monocytes/100 WBC (Bld) 8.4 % Normal 1.7-12.0 [facility] Comment on above: Performed By: #### P T #### [facility] [address] [place] [address] Dr. Virgil Purdy NEUT # 3.3 103/ul Normal 1.4-6.5 [facility] Comment on above: Performed By: #### P T #### [facility] [address] [place] [address] Dr. Virgil Purdy Neutrophils/100 WBC (Bld) 58.3 % Normal 43.0-75.0 [facility] Comment on above: Performed By: #### P T #### [facility] [address] [place] [address] Dr. Virgil Purdy Platelet mean volume (Bld) [Entitic vol] 11.4 fL Normal 9.5-13.5 [facility] Comment on above: Performed By: #### P T #### [facility] [address] [place] [address] Dr. Virgil Purdy PLT 263 103/ul Normal 150-450 [facility] Comment on above: Performed By: #### P T #### [facility] [address] [place] [address] Dr. Virgil Purdy RBC 4.85 106/ul Normal 4.20-5.40 [facility] Comment on above: Performed By: #### P T #### [facility] [address] [place] [id number] Dr. Virgil Purdy WBC 5.6 103/ul Normal 4.0-11.0 [facility] Comment on above: Performed By: #### P T #### [facility] [address] [place] [address] Dr. Virgil Purdy GLYCOHEMOGLOBIN A1Con 2021 ADA RECOMMENDATION SEE BELOW Normal [facility] Comment on above: Result Comment: ADA RECOMMENDED LIMIT 4.0 - 6.0 ADA THERAPEUTIC TARGET < 7.0 ACTION SUGGESTED > 7.0 Performed By: #### A 1C #### [facility] [address] [place] [address] Dr. Virgil Purdy Glucose [Mass/Vol] 123 mg/dL Normal [facility] Comment on above: Performed By: #### A 1C #### [facility] [address] [address] [address] Virgil Purdy HbA1c (Bld) [Mass fraction] 5.9 % Normal 4.5-6.2 [facility] Comment on above: Performed By: #### A 1C #### [facility] [address] [place] [address] Dr. Virgil Purdy LIPID PROFILEon 08-19-2022 CHOL-HDL RATIO NORM SEE BELOW Normal [facility] Comment on above: Result Comment: 3.3 - 4.4 LOW RISK 4.4 - 7.1 AVERAGE RISK 7.1 - 11.0 MODERATE RISK >11.0 HIGH RISK Performed By: #### P T #### [facility] [address] [place] [address] Dr. Virgil Purdy Cholesterol [Mass/Vol] 240 mg/dL Critically high <=200 [facility] Comment on above: Performed By: #### P T #### [facility] [address] [place] [address] Dr. Virgil Purdy Cholesterol in HDL [Mass/Vol] 70 mg/dL Critically high 40-60 [facility] Comment on above: Performed By: #### P T #### [facility] [address] [place] [address] Dr. Virgil Purdy Cholesterol in LDL [Mass/Vol] 150.2 mg/dL Normal [facility] Comment on above: Performed By: #### P T #### [facility] [address] [place] [address] Dr. Virgil Purdy Cholesterol.total/Ch olesterol in HDL [Mass ratio] 3.4 {ratio} Normal [facility] Comment on above: Performed By: #### P T #### [facility] [address] [address] [address] Virgil Purdy HDL NORMAL > or = 60 mg/dl - LOW CARDIOVASCULAR RISK <40 mg/dl - HIGH CARDIOVASCULAR RISK Normal [facility] Comment on above: Performed By: #### P T #### [facility] [address] [place] [address] Dr. Virgil Purdy LDL CALC NORMAL SEE BELOW Normal [facility] Comment on above: Result Comment: <100 mg/dl OPTIMAL 100 - 129 mg/dl NEAR OR ABOVE OPTIMAL 130 - 159 mg/dl BORDERLINE HIGH 160 - 189 mg/dl HIGH >190 mg/dl VERY HIGH Performed By: #### P T #### [facility] [address] [address] [address] Virgil Purdy Triglyceride [Mass/Vol] 99 mg/dL Normal <=150 [facility] Comment on above: Performed By: #### P T #### [facility] [address] [place] [address] Dr. Virgil Purdy VLDL CALC 19.8 mg/dL Normal [facility] Comment on above: Performed By: #### P T #### [facility] [address] [place] [address] Dr. Vrigil Purdy LIVER PROFILEon 08-19-2022 Albumin [Mass/Vol] 3.8 g/dL Normal 3.4-5.0 [facility] Comment on above: Performed By: #### P T #### [facility] [address] [place] [address] Dr. Virgil Purdy Albumin/Globulin [Mass ratio] 1.1 {ratio} Normal [facility] Comment on above: Performed By: #### P T #### [facility] [address] [place] [address] Dr. Virgil Purdy ALP [Catalytic activity/Vol] 86 U/L Normal 46-116 [facility] Comment on above: Performed By: #### P T #### [facility] [address] [place] [address] Dr. Virgil Purdy ALT [Catalytic activity/Vol] 21 U/L Normal 14-59 [facility] Comment on above: Performed By: #### P T #### [facility] [address] [address] [address] Virgil Purdy AST [Catalytic activity/Vol] 20 U/L Normal 15-37 [facility] Comment on above: Performed By: #### P T #### [facility] [address] [address] [address] Virgil Purdy BILI, CONJUGATED 0.1 mg/dL Normal 0.0-0.2 [facility] Comment on above: Performed By: #### P T #### [facility] [address] [address] [address] Virgil Purdy Bilirubin [Mass/Vol] 0.2 mg/dL Normal 0.2-1.0 [facility] Comment on above: Performed By: #### P T #### [facility] [address] [place] [address] Dr. Virgil Purdy Globulin (S) [Mass/Vol] 3.5 g/dL Normal [facility] Comment on above: Performed By: #### P T #### [facility] [address] [place] [address] Dr. Virgil Purdy Protein [Mass/Vol] 7.3 g/dL Normal 6.4-8.2 [facility] Comment on above: Performed By: #### P T #### [facility] [address] [place] [address] Dr. Virgil Purdy PROF CHEM 8 (BAS METB)on Anion gap [Moles/Vol] 11.9 mmol/L Normal [facility] Comment on above: Performed By: #### P T #### [facility] [address] [place] [address] Dr. Virgil Purdy Calcium [Mass/Vol] 9.0 mg/dL Normal 8.5-10.1 [facility] Comment on above: Performed By: #### P T #### [facility] [address] [address] [address] Virgil Purdy Chloride [Moles/Vol] 105 mmol/L Normal 98-107 [facility] Comment on above: Performed By: #### P T #### [facility] [address] [address] [address] Virgil Purdy CO2 [Moles/Vol] 25.3 mmol/L Normal 21.0-32.0 [facility] Comment on above: Performed By: #### P T #### [facility] [address] [address] [address] Virgil Purdy Creatinine [Mass/Vol] 0.90 mg/dL Normal 0.55-1.02 [facility] Comment on above: Performed By: #### P T #### [facility] [address] [address] [address] Virgil Purdy EGFR-AF ICELANDIC >60 Normal >=60 [facility] Comment on above: Performed By: #### P T #### [facility] [address] [place] [address] Dr. Virgil Purdy EGFR-NON AF ICELANDIC >60 Normal >=60 [facility] Comment on above: Performed By: #### P T #### [facility] [address] [address] [address] Virgil Purdy Glucose [Mass/Vol] 93 mg/dL Normal 74-106 [facility] Comment on above: Performed By: #### P T #### [facility] [address] [address] [address] Virgil Purdy Potassium [Moles/Vol] 5.2 mmol/L Critically high 3.5-5.1 [facility] Comment on above: Performed By: #### P T #### [facility] [address] [address] [address] Virgil Purdy Sodium [Moles/Vol] 137 mmol/L Normal 136-145 [facility] Comment on above: Performed By: #### P T #### [facility] [address] [address] [address] Virgil Purdy Urea nitrogen [Mass/Vol] 16.0 mg/dL Normal 7.0-18.0 [facility] Comment on above: Performed By: #### P T #### [facility] [address] [address] [address] Virgil Purdy Urea nitrogen/Creatinine [Mass ratio] 17.8 mg/mg Normal [facility] Comment on above: Performed By: #### P T #### [facility] [address] [address] [address] Virgil Purdy TSHon 08-19-2022 TSH 14.874 uIU/mL Critically high 0.358-3.740 [facility] Comment on above: Performed By: #### P T #### [facility] [address] [address] [address] Virgil Purdy COVID Quick Testingon 2020 Result Negative [facility] Other Vital Signs Date Time Vital Sign Value Performing Clinician Facility 01-06-2025 10:38-0500 Body height 157.5 cm Fior Pinon DPM Work Phone: [facility] 01-06-2025 10:38-0500 Body mass index (BMI) [Ratio] 29.26 kg/m2 Fior Pinon DPM Work Phone: [facility] 01-06-2025 10:38-0500 Body weight 72.58 kg Fior Pinon DPM Work Phone: [facility] 04-10-2023 09:30-0400 Body height 157.48 cm Janny Concepcion Other [facility] Other 04-10-2023 09:30-0400 Body mass index (BMI) [Ratio] 28.16 kg/m2 Janny Concepcion Other [facility] Other 04-10-2023 09:30-0400 Body weight 69.85 kg Janny Concepcion Other [facility] Other 09-30-2021 15:15-0500 Body height 157.48 cm Harper Shin Other [facility] Other 09-30-2021 15:15-0500 Body mass index (BMI) [Ratio] 29.63 kg/m2 Harper Radhanty Other [facility] Other 09-30-2021 15:15-0500 Body temperature 96.2 [degF] Harper Radhanty Other [facility] Other 09-30-2021 15:15-0500 Body weight 73.48 kg Harper Radhanty Other [facility] Other 09-30-2021 15:15-0500 SaO2% (BldA) [Mass fraction] 97 % Harper Radhantlili Other [facility] Other Encounters Encounter Date Encounter Type Care Provider Facility Start: 05-29-2025 End: 05-29-2025 Emergency department patient visit NO PCP NO PCP [facility] Start: 02-03-2025 End: 02-03-2025 ambulatory FIOR PINON Not Available Start: 01-06-2025 End: 01-06-2025 Office outpatient new 45 minutes Fior Pinon DPM Work Phone: [facility] Comment on above: Posterior tibial ten dinitis of right lower extremity (Primary Dx); Stress fracture of left tibia, initial encounter; Acute right ankle pain; Instability of right ankle joint; Difficulty walking Start: 01-06-2025 End: 01-06-2025 ambulatory FIOR PINON Not Available Start: 07-24-2023 End: 07-24-2023 ambulatory Janny Concepcion Other [facility] Other Start: 07-24-2023 Postop follow up vis it related to original px [facility] Start: 05-06-2023 End: 05-06-2023 ambulatory Janny Concepcion Facility:[facility] Start: 05-01-2023 End: 05-01-2023 ambulatory Janny Concepcion Other [facility] Other Start: 05-01-2023 Postop follow up vis it related to original px Janny Concepcion [facility] Start: 04-17-2023 End: 04-17-2023 ambulatory JANNY CARLENE Facility:[facility] Start: 04-17-2023 Postop follow up vis it related to original px Janny Carlene [facility] Start: 04-10-2023 End: 04-10-2023 ambulatory Jannyheriberto Concepcion Other [facility] Other Start: 04-10-2023 Postop follow up vis it related to original px Janny Concepcion [facility] Start: 04-07-2023 End: 04-07-2023 ambulatory Janny Concepcion Facility:[facility] Start: 04-06-2023 End: 04-06-2023 ambulatory Janny Concepcion Facility:[facility] Start: 03-26-2023 End: 04-02-2023 Evaluation and management of inpatient John Jigar Facility:[facility] Start: 03-26-2023 End: 03-26-2023 Evaluation and management of inpatient DR AMILCAR SMITH . Facility:[facility] Start: 08-22-2022 End: 08-23-[address] HUBER DEWEY Facility:[facility] Start: 08-21-2022 Encounter for genera l adult medical examination without abnormal findings DR HUEBR DEWEY [facility] Start: 08-19-2022 End: 08-20-[address] HUBER DEWEY Facility:[facility] Start: 08-19-2022 End: 08-20-2022 Encounter for general adult medical examination without abnormal findings DR HUBER DEWEY Facility:[facility] Start: 09-30-2021 End: 09-30-2021 ambulatory Harper Shin Other [facility] Other Start: 09-30-2021 Office outpatient vi sit 15 minutes Harper Shin [facility] Procedures Date Procedure Procedure Detail Performing Clinician Start: 01-06-2025 Radex ankle complete minimum 3 views Fior Pinon DPRobles Work Phone: Plan of Treatment Date Care Activity Detail Author Start: 02-03-2025 End: 02-03-2025 Patient encounter procedure 02/03/2025 10:30 AM EDT Office Visit [facility] [address] [id number] Fior Pinon DPM [address] [place] [address] [facility] Start: 07-17-2024 Influenza vaccination Influenza Vacc ine (#1) [facility] Start: 2007 Screening for malign ant neoplasm of breast Mammogram [facility] Start: 1997 Screening for malign ant neoplasm of cervix [facility] Start: 1988 Screening for malign ant neoplasm of cervix Pap Smear [facility] Start: 1967 Screening for malign ant neoplasm of colon [facility] Immunizations Immunization Date Immunization Notes Care Provider Fa cility 09-05-2023 influenza virus vacc ine, unspecified formulation Fior Pinon DPM Work Phone: [facility] Healthcare Payers Date Payer Category Payer Self-pay 2019 Private Health Insurance [facility] [id number] 1967 Unknown [id number] [id number]. 2.593 1967 Unknown [id number] [id number]. 2.593 1967 Unknown [id number] [id number]. 2.593 1967 Unknown [id number] 2.16.840.1.053486.3.579. 2.593 1967 Unknown [id number] 2.16.840.1.396294.3.579. 2.1259 1967 Unknown [id number] 2.16.840.1.046256.3.579. 2.1259 1967 Unknown [id number] 2.16.840.1.036117.3.579. 2.1259 1967 Unknown [id number] 2.16.840.1.828843.3.579. 2.1286 1959 Unknown [id number] [id number] Unknown [id number] 2.16.840.1.524821.3.579. 2.531 Unknown [id number] 2.16.840.1.487117.3.579. 2.531 Unknown [id number] [id number]. 2.531 Unknown [id number] [id number]. 2.531 Worker's Compensation [id number] Social History Date Type Detail Facility Unknown if ever smoked [facility] [employer] Other Start: 01-06-2025 Sex Assigned At N [facility] [employer] Other Start: 01-06-2025 Tobacco smoking stat [facility] Ex-smoker [facility] History of tobacco use Current smoker [facility] History of tobacco use Cigarette [facility]oker [facility] Start: 01-06-2025 Alcoholic beverage intake Current drinker of alcohol (finding) [facility] Start: 01-06-2025 Alcoholic beverage intake [facility] Start: 01-06-2025 Tobacco Comment Patient quit 2016 [facility] Start: 01-06-2025 Alcohol Comment 4x a week [facility] Start: 1967 Sex assigned at Not on file [facility] Clinical Notes 11-15-2021 to 01-06-2025 Fior Montoya Black, DPM - 01/06/2025 10:45 AM EST Note Date & Type Note Facility 01-06-2025 History of Presen t illness Narrative Images from the original note were not included. Subjective Patient ID: Laura Tyler is a 59 y.o. female who presents for Ankle Pain (Luara Tyler 59yo New patient presents with Right ankle pain, patient relates history of broken ankle and sprains, hairline Fx 14 months. 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 (11/2023).SS8). HPI This is a new patient who presents to clinic with concern of right ankle pain. She states that this has been bothering her for about 8 days. She denies any injury. She states that in the past she has had occasional pain along the medial aspect of the right ankle that typically goes away after a few days. She states that this current flare has been exquisitely painful along the medial aspect of the ankle and foot. She has not tried any treatment with the exception of ice and heat. She takes Celebrex daily. Review of Systems Constitutional: Positive for activity change. Negative for appetite change. Respiratory: Negative for chest tightness and shortness of breath. Cardiovascular: Positive for leg swelling. Negative for chest pain. Musculoskeletal: Positive for arthralgias and gait problem. Skin: Negative for color change and wound. Neurological: Negative for weakness and numbness. Psychiatric/Behavioral: Negative for agitation and behavioral problems. Hematological: Does not bruise/bleed easily. Endocrine: Negative for cold intolerance and heat intolerance. Allergic/Immunologic: Negative for immunocompromised state. Past medical History History reviewed. No pertinent past medical history. Medications Current Outpatient Medications: celecoxib (CeleBREX) 200 MG capsule, take 1 capsule by mouth IN THE MORNING and BEFORE BEDTIME, Disp: 180 capsule, Rfl: 3 ibuprofen 800 MG tablet, take 1 tablet by mouth three times a day if needed, Disp: 90 tablet, Rfl: 3 levothyroxine (Synthroid, Levoxyl) 100 MCG tablet, TAKE 1 TABLET BY MOUTH EVERY DAY, Disp: 90 tablet, Rfl: 3 methylPREDNISolone (Medrol Dospak) 4 MG tablets, Take as directed on package., Disp: 21 tablet, Rfl: 0 Nirmatrelvir&Ritonavir 300/100 (Paxlovid, 300/100,) 20 x 150 MG & 10 x 100MG tablet therapy pack, Take 1 Dose by mouth See administration instructions, Disp: 1 each, Rfl: 0 omeprazole (PriLOSEC) [address] capsule, TAKE 1 CAPSULE BY MOUTH EVERY DAY, Disp: 90 capsule, Rfl: 1 Allergies Patient has no known allergies. Past Surgical History History reviewed. No pertinent surgical history. Family History No family history on file. Objective Physical Exam Constitutional: Appearance: She is obese. Comments: Accompanied by her . HENT: Head: Normocephalic and atraumatic. Cardiovascular: Pulses: Normal pulses. Pulmonary: Effort: Pulmonary effort is normal. No respiratory distress. Abdominal: Palpations: There is no mass. Musculoskeletal: Cervical back: No rigidity. Comments: Weightbearing examination reveals cavovarus morphology. Unable to perform a heel rise test on the right side. Right foot: Isolated and maximal tenderness along the posterior tibial tendon just posterior to the medial malleolus. No tenderness distal to the medial malleolus or its insertion. There is also point tenderness to the medial malleolus and medial tibial surface a proximally 2 cm proximal to the ankle joint. No syndesmotic tenderness. Very minimal ankle joint tenderness anteriorly. No lateral ankle tenderness. Muscle strength 5/5 for all quadrants with the exception of inversion which is 4/5 with tenderness and guarding. Ankle dorsiflexion 0 degrees with the knee extended, flexed. Inversion, eversion of the subtalar joint very minimally painful on forced inversion but I do not appreciate any crepitus. There is limitation in eversion of the subtalar joint. Skin: Capillary Refill: Capillary refill takes less than 2 seconds. Findings: No lesion or rash. Neurological: Mental Status: She is alert. Comments: No loss of protective sensation, gross sensation intact. Psychiatric: Mood and Affect: Mood normal. Behavior: Behavior normal. XR ankle 3+ views right Imaging Result: AP, mortise, lateral views are weight-bearing. Diffuse osteopenia. Small enthesophyte at the insertion of the Achilles tendon. Mild radiopacity across the tibia approximately 3 cm above the fused distal tibial physis. Talus appears well seated within the ankle mortise. No fractures or dislocations noted. Assessment/Plan ICD-10-CM 1. Posterior tibial tendinitis of right lower extremity M76.821 XR ankle 3+ views right methylPREDNISolone (Medrol Dospak) 4 MG tablets 2. Stress fracture of left tibia, initial encounter M84.362A XR ankle 3+ views right 3. Acute right ankle pain M25.571 XR ankle 3+ views right 4. 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 Difficulty walking R26.2 Patient was examined and evaluated. 3 views of the affected ankle were taken in office today and I discussed my findings. She has maximum symptomatology along the posterior tibial tendon consistent with tendinitis. I do have some concern for tibial stress fracture based on clinical evaluation. I have recommended an ASO brace for stabilization and limitation of motion of the ankle and rearfoot. Patient agreed and was fitted for the appropriate brace. Goals of therapy include prevent further injury, stabilization, reduction of stress and pressure to the injured area. Anticipated time of use - at least 1 month. At the time of dispensing it is suitable and not substandard. Patient is able to apply the brace independently. It is comfortable to walk and fits inside the shoe. I have also recommended taking the brace off daily to perform range of motion and strengthening exercises of the ankle. Patient states that she has noticed a lot of swelling in her legs and I recommend using a compression sock underneath the brace today. Patient was fitted for compression socks today. I recommended a Medrol Dosepak to help reduce inflammation and to help with symptomatology. Prescription sent to her pharmacy. I also recommend 1 week off of work. She may return to work unrestricted next Thursday. I would like to follow up with her in 1 month. If she is still having significant issues I may consider an MRI. This note was created with the assistance of a speech recognition program. While intending to generate a timely document that accurately reflects the content of the visit, no guarantee can be provided that every grammatical or spelling mistake has been or will be identified or corrected. Thank you for your understanding. Fior Pinon DPM documented in this encounter [facility] 07-24-2023 Evaluation note Encounter Date Diagnosis Assessment Notes Jul, Left arm cellulitis (ICD-10 - L03.114) Laura returns today for follow-up of left arm purulent cellulitis with strep pyogenes. She has completed antibiotics. Her motion looks fantastic today. She has no issues with the arm other than some weakness which she says is improving. She can continue to advance as tolerated without restrictions. Follow-up as needed for now Patient is progressing well from surgery. She will continue to work on motion and strengthening. Continue to massage the area. Jul, Stiffness of left elbow joint (ICD-10 - M25.622) Jul, Other specified postprocedural states (ICD-10 - Z98.890) Jul, Left knee pain (ICD-10 - M25.562) Patient will continue to take anti inflammatory medication. If pain persists we will obtain x-rays at consider a cortisone injection. [facility] Other 06-16-2023 Evaluation note* Encounter Date Diagnosis Assessment Notes Treatment Notes Treatment Clinical Notes Apr, Left arm cellulitis (ICD-10 - L03.114) Laura returns today for follow-up of left arm purulent cellulitis with strep pyogenes. She is near completion of oral antibiotics. Today her physical exam is continuing to improve from an infectious appearance and wounds are mostly healed at this time. Her elbow motion is not advancing as needed. She has significant stiffness in her elbow flexion which she cannot even get to 90 degrees today. I have recommended a manipulation of this in order to advance motion. She is already in physical therapy and we will continue this. Continue off work due to need for therapy and dysfunction of left arm. We will plan to get manipulation set up and she should get back into therapy immediately. I will plan to see her back 3 weeks after manipulation Apr, Other specified postprocedural states (ICD-10 - Z98.890) Wound dressed with xeroform, ABD and gauze wrap. Based on patient's current level of stiffness, advised she would benefit from a manipulation of the elbow. Procedure discussed in detail including risks, recovery and restrictions. Patient is in understanding and wishes to proceed with surgery at this time. Advised patient plan to have the procedure on 05/06/23 morning and to keep her therapy appt for later in the day. Will plan for suture removal at time of surgery. Patient to continue off work at this time for at least the next 3 months. Short term disability phone? number [phone] [facility] Other 06-02-2023 Evaluation note* Encounter Date Diagnosis Assessment Notes Treatment Notes Treatment Clinical Notes Apr, Left arm cellulitis (ICD-10 - L03.114) Laura returns today for follow-up of left arm purulent cellulitis with strep pyogenes. She is near completion of oral antibiotics. Today her physical exam is continuing to improve and no signs of infection are present with improved healing of her wounds. I have expressed concern about her elbow motion today. She needs to be an aggressive physical therapy for this and has her first appointment tomorrow. She needs to continue to work on this at home. Continue local wound care. A portion of her sutures have been removed today and we will need to remove more of those at her return visit. I will plan to see her back in 2 weeks for recheck and suture removal Apr, Other specified postprocedural states (ICD-10 - Z98.890) Laura returns for follow up visit 1 week status post left arm I & D ( DOS 04/07/2023) 3 weeks status post left arm I&D/ application of incisional wound VAC 6 cm. There is some erythema and drainage to the distal incision site. Those sutures will remain in place for now. All other sutures were removed under sterile conditions. Patient advised to continue with physical therapy and motion and strengthening exercises at home. We will follow up in 2 weeks time. Apr, Encounter for removal of sutures (ICD-10 - Z48.02) [facility] Other 05-26-2023 Evaluation note* Encounter Date Diagnosis Assessment Notes Treatment Notes Treatment Clinical Notes March, Left arm cellulitis (ICD-10 - L03.114) Laura returns today for follow-up of repeat washout. She is now POD #3. Physical exam is improving with less swelling and redness noted. Her surgical incisions are benign with active bloody drainage but drains have been removed today. We have redressed the arm with Xeroform, 4 x 4's and a compressive wrap. She needs physical therapy for range of motion work. Dressing changes daily as needed. Continue antibiotics as prescribed. Follow-up in 1 week for recheck March, Other specified postprocedural states (ICD-10 - Z98.890) Patient is progressing well from surgery. We discussed the importance of continuing to work on range of motion and strength exercise. Patient provided an order for physical therapy. We discussed use of pain medication as needed for pain. Incisions evaluated and redressed. Continue with antibiotics. Call with any questions or concerns. [facility] Other 05-09-2023 NotePROCEDURE: XR FOREARM LT 2 VIEWS, XR ELBOW LT MIN 3 VIEWS HISTORY: Injury of left forearm ; swelling and pain COMPARISON: None. FINDINGS: BONES:No fracture, acute abnormality, or significant arthropathy. SOFT TISSUES: Prominent soft tissue swelling and subcutaneous edema. A skin surface marker localizes the site of injury to the posterior proximal forearm; no radiopaque foreign body deep to the skin. EFFUSION:None visible. OTHER: Negative. IMPRESSION: 1. Prominent soft tissue swelling of the forearm suggestive of cellulitis. 2. No bone involvement or radiopaque foreign body. Electronically authenticated by: AC LOVING Date: 2023-03-24 11:04[facility]05-09-2023 NotePROCEDURE: XR FOREARM LT 2 VIEWS, XR ELBOW LT MIN 3 VIEWS HISTORY: Injury of left forearm ; swelling and pain COMPARISON: None. FINDINGS: BONES:No fracture, acute abnormality, or significant arthropathy. SOFT TISSUES: Prominent soft tissue swelling and subcutaneous edema. A skin surface marker localizes the site of injury to the posterior proximal forearm; no radiopaque foreign body deep to the skin. EFFUSION:None visible. OTHER: Negative. IMPRESSION: 1. Prominent soft tissue swelling of the forearm suggestive of cellulitis. 2. No bone involvement or radiopaque foreign body. Electronically authenticated by: AC LOVING Date: 2023-03-24 11:04[facility]11-15-2021 Evaluation note* Encounter Date Diagnosis Assessment Notes Treatment Notes Treatment Clinical Notes Sep, Contact with and (suspected) exposure to other viral communicable diseases (ICD-10 - Z20.828) Sep, Viral URI (ICD-10 - J06.9) Advised patient that COVID antigen test was negative today. Advised patient that will tx as viral URI. Will send in rx for Zyrtec and Flonase to use as needed. Supportive care as directed, increase fluids and rest, Tylenol/Motrin as directed, cool mist humidifier, throat lozenges. Discussed infection control practices such as good hand washing and mask wearing. Patient to follow up with PCP if sx persist or worsen despite treatment. Immediate eval for SOB, difficulty, chest pain, fevers that do not break with antipyretic or any other concerning symptoms as reviewed on patient education handout. Patient verbalizes understanding and is agreeable to treatment plan. Patient left in stable condition. Patient verbalizes understanding and is agreeable to treatment plan Sep, Other Additional time spent conducting pre-visit phone call, screening for symptoms, instructions on social distancing, application and removal of PPE, and cleaning of examination room, equipment and supplies was preformed. Patient education given for testing methodology and results. Patient care instructions given in writting by [facility] Care At Home document [facility] Other Evaluation note* Diagnosis Posterior tibial tendinitis of right lower extremity- Primary Stress fracture of left tibia, initial encounter Acute right ankle pain Instability of right ankle joint Difficulty walking Difficulty in walking documented in this encounter [facility] - Reported* Type Description Date Medical History Tachycardia Surgical History hysterectomy Surgical History appendectomy Surgical History colonoscopy Surgical History finger Hospitalization History see above [facility] Other History general Narrative - Reported* Type Description Date Medical History Tachycardia Surgical History hysterectomy Surgical History appendectomy Surgical History colonoscopy Surgical History finger Surgical History I & d left forearm Hospitalization History see above [facility] Other Summary Purpose Family History No Family History Records FoundNo Family History Records FoundNo Family History Records FoundNo Family History Records Found Advance Directives No Advanced Directives Records FoundNo Advanced Directives Records FoundNo Advanced Directives Records FoundNo Advanced Directives Records Found Additional Source Comments REASON FOR VISIT (unrecogniz ed section and content) Reason Comments Ankle Pain Laura Bear 59 yo New patient presents with Right ankle pain, patient relates history of broken ankle and sprains, hairline Fx 14 months. 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 (11/2023).SS8 INFORMATION SOURCE (unrecogn ized section and content) DATE CREATED AUTHOR 04/24/2023 [facility] DATE CREATED AUTHOR AUTHOR'S ORGANIZ ATION 05/28/2023 [facility] DATE CREATED AUTHOR AUTHOR'S ORGANIZ ATION 02/05/2025 [facility] EPIC DATE CREATED AUTHOR AUTHOR'S ORGANIZ ATION 06/02/2025 [facility] Care Teams (unrecognized sec tion and content) [employer] Relationship Specialty Start Date End Date Huber Dewey MD [address] [place] [address] PCP - General Family Medicine 09/16/23 FOR RECORDS PERTAINING TO PATIENTS WHO ARE OR HAVE BEEN ENROLLED IN A CHEMICAL DEPENDENCY/SUBSTANCEABUSE PROGRAM, SOME INFORMATION MAY BE OMITTED. This clinical summary was aggregated from multiple sources. Caution should be exercised in using it in the provision of clinical care. This summary normalizes information from multiple sources, and as a consequence, information in this document may materially change the coding, format and clinical context of patient data. In addition, data may be omitted in some cases. CLINICAL DECISIONS SHOULD BE BASED ON THE PRIMARY CLINICAL RECORDS. [employer] provides no warranty or guarantee of the accuracy or completeness of information in this document.
[2025-07-03 07:56] LABS: Hematocrit 47.2 % (36.0-48.0); Hemoglobin 15.5 g/dL (12.0-16.0); Immature Granulocytes Abs Auto 0.00 10^3/uL (0.00-0.03); Immature Granulocytes Pct Auto 0.0 % (0.0-0.5); Lymphocytes Absolute Auto 0.9 10^3/uL (1.2-3.8); Mean Corpuscular HGB Conc 32.8 g/dL (29.9-35.2); Mean Corpuscular Hemoglobin 28.3 pg (26.7-34.0); Mean Corpuscular Volume 86.3 fL (81.0-99.0); Platelet Count 256 10^3/uL (150-450); Red Blood Count 5.47 10^6/uL (4.20-5.40); White Blood Count 4.0 10^3/uL (4.0-11.0)
[2025-07-03 09:13] LABS: Iron 90.0 ug/dL (50.0-170.0)
[2025-07-03 09:56] LABS: Alanine Aminotransferase 28 U/L (14-59); Albumin Globulin Ratio 1.1; Albumin Level 4.1 g/dL (3.4-5.0); Alkaline Phosphatase 102 U/L (46-116); Anion Gap 11.3; Aspartate Amino Transferase 27 U/L (15-37); Blood Urea Nitrogen 21.0 mg/dL (7.0-18.0); Calcium 8.9 mg/dL (8.5-10.1); Carbon Dioxide 27.3 mmol/L (21.0-32.0); Chloride 104 mmol/L (98-107); Cholesterol 238 mg/dL (<=200); Estimated GFR (African America >60 (>=60 mL/min/1.73m^2); Estimated GFR (Non-African Ame >60 (>=60 mL/min/1.73m^2); Free T3 2.67 pg/mL (2.18-3.98); Globulin 3.9 g/dL; Glucose 76 mg/dL (74-106); HDL Cholesterol 74 mg/dL (40-60); Potassium 3.6 mmol/L (3.5-5.1); Sodium 139 mmol/L (136-145); Thyroid Stimulating Hormone 0.332 uIU/mL (0.358-3.740); Total Protein 8.0 g/dL (6.4-8.2); Triglycerides 31 mg/dL (<=150); VLDL CHOLESTEROL 6.2 mg/dL
== END 2025-07-03 07:24 | disposition home or self-care (01) ==
LOC: LAB 07:25
PROVIDERS: PCP Family Medicine; Visit Provider Family Medicine
DX: Z00.00 Encounter for general adult medical examination without abnormal findings (principal)
CPT/HCPCS: 36415; 80053; 80061; 83036; 83525; 83540; 84436; 84443; 84481; 85025

== ENCOUNTER 2025-07-04 10:28 | Outpatient (OUT) | payer OTHER, SELFPAY ==
--- OUTSIDE RECORDS SUMMARY | 2025-07-04 10:30 | XMS_ITS | Clinical Summary ---
Author Organization [facility] tem Address [id number] [address] [place] [address] Care Team Providers Care Legal Billing Specialist Name Role Phone No Pcp, No Pcp Primary Care Provider Unavailabl e Allergies No known active allergies Medications ibuprofen (MOTRIN) 800 mg tablet Take 1 tablet (800 mg total) by mouth every 8 (eight) hours as needed. Active levothyroxine (SYNTHROID, LEVOTHROID) 100 MCG tablet Take 1 tablet (100 mcg total) by mouth in the morning. 08/24/2024 Active omeprazole (PriLOSEC) 40 mg capsule Take 1 capsule (40 mg total) by mouth in the morning. 12/09/2024 Active Encounters Date Type Department Care Team Description 05/29/2025 1:17 PM EDT - 05/29/2025 2:11 PM EDT Emergency [facility] - Emergency [address] [place] [address] Bar Dash MD Laceration of left index finger without foreign body without damage to nail, initial encounter (Primary Dx) Discharge Disposition: Home 05/29/2025 Travel from Last 3 Months Immunizations Immunization Administration Dates Next Due Tdap 05/29/2025 Social History Tobacco Use Types Packs/Day Years Used Date Smoking Tobacco: Former Cigarettes Smokeless Tobacco: Never Tobacco Cessation:Counseling Given: Not Answered Alcohol Use Standard Drinks/Week Comments Yes 0 (1 standard drink = 0.6 oz pur e alcohol) occasionally Childcare Answer Date Recorded Childcare Unknown 04/27/2019 Employment Answer Date Recorded Employment Unknown 04/27/2019 Hunger Screening Answer Date Recorded Within the past 12 months we worried whether our food would run out before we got money to buy more. Never True 05/29/2025 Within the past 12 months th e food we bought just didn't last and we didn't have money to get more. Never True 05/29/2025 Comments Unknown Sex and Gender Information Value Date Recorded Sex Assigned at Not on file Legal Sex Female 12:07 PM EDT Gender Identity Not on file Sexual Orientation Not on file Last Filed Vital Signs Vital Sign Reading Time Taken Comments Blood Pressure 105/82 05/29/2025 12:34 PM EDT Pulse 58 05/29/2025 12:34 PM EDT Temperature 36.5 C (97.7 F) 05/29/2025 12:34 PM EDT Respiratory Rate 18 05/29/2025 12:34 PM EDT Oxygen Saturation 96% 05/29/2025 12:34 PM EDT Inhaled Oxygen Concentration - - Weight 69.9 kg (154 lb) 05/29/2025 12:34 PM EDT Height 157.5 cm (5' 2 ) 05/29/2025 12:34 PM EDT Body Mass Index 28.17 05/29/2025 12:34 PM EDT Plan of Treatment Health Maintenance Due Date Last Done Comments Depression Screening 1979 Adult BMI Follow Up Plan 1985 Pap Smear 1988 Zoster (Shingles) Vaccine (1 of 2) 2017 Influenza Vaccine 07/17/2025 Adult BMI Screening 05/29/2026 05/29/2025 Tobacco Screening 05/29/2026 05/29/2025 DTaP,Tdap and Td Vaccines (2 - Td or Tdap) 05/29/2035 05/29/2025 Medical Devices Not on file Procedures Procedure Name Priority Date/Time Associated Diagnosis Comments PM ED LACERATION REPAIR Routine 05/29/2025 1:44 PM EDT XR FINGER LT 2ND DIGIT MIN 2 VWS STAT 05/29/2025 1:39 PM EDT from Last 3 Months Results * Laceration Repair (05/29/2025 1:44 PM EDT) Narrative Bar Dash MD - 05/29/2025 1:44 PM EDT Bar Dash MD 05/31/2025 1:44 PM Laceration Repair Date/Time: 05/29/2025 1:44 PM Performed by: Bar Dash MD Authorized by: Bar Dash MD Consent: Consent obtained: Verbal Consent given by: Patient Risks, benefits, and alternatives were discussed: yes [place] protocol: Patient identity confirmed: Verbally with patient and arm band Anesthesia: Anesthesia method: None Laceration details: Location: Finger Finger location: L index finger Pre-procedure details: Preparation: Patient was prepped and draped in usual sterile fashion Exploration: Hemostasis achieved with: Direct pressure Imaging obtained: x-ray Imaging outcome: foreign body not noted Contaminated: no Treatment: Area cleansed with: Soap and water Amount of cleaning: Standard Visualized foreign bodies/material removed: no Debridement: None Skin repair: Repair method: Tissue adhesive Approximation: Approximation: Close Repair type: Repair type: Simple Post-procedure details: Dressing: Splint for protection Procedure completion: Tolerated Bar Dash MD PROCEDURE/MINOR SURGICAL ORDERA BLES Final Result * X-ray finger left 2nd digit minimum 2 views (05/29/2025 1:39 PM EDT) Anatomical Region Laterality Modality Upper Extremities, MSK, Fingers Left Computed Radiography 05/29/2025 1:55 PM EDT Narrative 05/29/2025 1:56 PM EDT STUDY: Radiographs of the left second digit [...] Mya Robles MD on 05/29/2025 1:56 PM Procedure Note Mya Robles MD - 05/29/2025 STUDY: Radiographs of the left second digit TECHNIQUE: 3 views of the left second digit COMPARISON: Limited comparison with contralateral right hand radiographsdated 11/26/2009 FINDINGS/IMPRESSION: 1. Mild soft tissue edema about the base of the second digit withoutgross soft tissue defect/ulceration. 2. Postsurgical changes of the third proximal phalanx. Mildosteoarthritic changes of the first CMC. Normal osseous mineralization. Finalized by Mya Robles MD on 05/29/2025 1:56 PM Bar Dash MD IMG DIAGNOSTIC IMAGING ORDERABL ES Final Result from Last 3 Months Insurance [employer] Care Teams Legal Billing Specialist Relationship Specialty Start Date End Date No Pcp, [place] [address] PCP - General Family Medicine 05/29/25
--- OUTSIDE RECORDS SUMMARY | 2025-07-04 10:30 | XMS_ITS | Clinical Summary ---
Author Organization [facility] Healthcare Address [address] [place] [address] Care Team Providers Care Director Money Name Role Phone Huber Thorne MD Primary Care Provider [phone] Allergies No known active allergies Medications Nirmatrelvir&Riton avir 300/100 (Paxlovid, 300/100,) 20 x 150 MG & 10 x 100MG tablet therapy packIndications:CO VID Take 1 Dose by mouth See administration instructions 1 each 11/26/19 24 Active celecoxib (CeleBREX) 200 MG capsuleIndications :Arthralgia of right ankle take 1 capsule by mouth IN THE MORNING and BEFORE BEDTIME 180 capsule 3 04/12/20 24 Active ibuprofen 800 MG tabletIndications: Arthralgia of both ankles take 1 tablet by mouth three times a day if needed 90 tablet 3 05/20/20 24 Active levothyroxine (Synthroid, Levoxyl) 100 MCG tabletIndications: Adult hypothyroidism TAKE 1 TABLET BY MOUTH EVERY DAY 90 tablet 3 08/24/20 24 Active omeprazole (PriLOSEC) [address] capsuleIndications :Chronic GERD TAKE 1 CAPSULE BY MOUTH EVERY DAY 90 capsule 1 12/09/19 25 Active methylPREDNISolone (Medrol Dospak) 4 MG tabletsIndications :Posterior tibial tendinitis of right lower extremity Take as directed on package. 21 tablet 01/06/20 25 Active Active Problems Problem Noted Date Diagnosed Date Arthralgia of both ankles 03/28/2024 Chronic left shoulder pain 03/28/2024 Chronic superficial gastritis without bleeding 0 03/28/2024 Dyshidrotic eczema 03/28/2024 Adult hypothyroidism 03/28/2024 Paroxysmal atrial fibrillation 03/28/2024 Rupture of right tympanic membrane due to otitis media 03/28/2024 Encounters Date Type Department Care Team Description 06/09/2025 Refill [facility] [address] [place] [address] Huber Thorne MD Chronic GERD from Last 3 Months Social History Tobacco Use Types Packs/Day Years Used Date Smoking Tobacco: Former Cigarettes Tobacco Cessation:Counseling Given: Not Answered Comments:Patient quit 2015 Alcohol Use Standard Drinks/Week Comments Yes 2 (1 standard drink = 0.6 oz pur e alcohol) 4x a week Comments Unknown Sex and Gender Information Value Date Recorded Sex Assigned at Not on file Legal Sex Female 7:13 PM EDT Gender Identity Not on file Sexual Orientation Not on file Last Filed Vital Signs Vital Sign Reading Time Taken Comments Blood Pressure - - Pulse - - Temperature - - Respiratory Rate - - Oxygen Saturation - - Inhaled Oxygen Concentration - - Weight 69.9 kg (154 lb) 02/03/2025 10:08 AM EDT Height 157.5 cm (5' 2 ) 02/03/2025 10:08 AM EDT Body Mass Index 28.17 02/03/2025 10:08 AM EDT Plan of Treatment Health Maintenance Due Date Last Done Comments CT Colonography 1967 Colonoscopy 1967 Colorectal Cancer Screening 1967 FIT-DNA 1967 FIT 1967 FOBT 1967 Sigmoidoscopy 1967 Pap Smear 1988 Cervical Cancer Screening 1997 HPV/Cotest 1997 Mammogram 2007 Influenza Vaccine (#1) 2025 3, 11/12/2022, 11/14/2021, Additional history exists Insurance [facility] Care Teams Director Money Relationship Specialty Start Date End Date Huber Thorne MD [address] [place] [address] PCP - General Family Medicine 09/16/23
--- NOTE | 2025-07-04 10:31 | MM_ITS ---
Patient Name: LAURA TYLER MR#: [id number] : 1965 Exam Date: 07/04/2025 Ordering Doctor: DR AMILCAR SMITH . RADIOLOGY REPORT PROCEDURE: MM TOMOSYNTHESIS SCREENING BI COMPARISON: MG MAMM SCREEN [place] W CAD, 08/30/2019. MG MAMM SCREEN [place] W CAD, 04/27/2018. MG MAMM [place] SCRN W CAD DIG, 05/10/2013. INDICATIONS: Screening Calculator Name NCI Breast Cancer Risk Assessment Tool 5 Year Breast Cancer Risk 1.30% Lifetime Breast Cancer Risk 7.70% Personal Breast Cancer No Personal Ovarian Cancer No Treatments None Family Cancers Mother with bone & cervical cancer at age 47; Sister with cervical cancer at age 30. LOCATION: [facility] BREAST COMPOSITION: There are scattered areas of fibroglandular density. FINDINGS: RIGHT BREAST: No significant suspicious finding. Several small for asymmetries are noted on the right. LEFT BREAST: No significant suspicious finding. DIAGNOSTIC CATEGORY 2--BENIGN FINDING: RECOMMENDATIONS: ROUTINE MAMMOGRAM AND CLINICAL EVALUATION IN 12 MONTHS. PLEASE NOTE: A NORMAL MAMMOGRAM DOES NOT EXCLUDE THE POSSIBILITY OF BREAST CANCER. A CLINICALLY SUSPICIOUS PALPABLE LUMP SHOULD BE BIOPSIED. Dictated by: Braden Rae MD on 07/04/2025 at 14:49 Approved by: Braden Rae MD on 07/04/2025 at 14:53
--- OUTSIDE RECORDS SUMMARY | 2025-07-04 13:39 | XMS_ITS | CCD ---
Author Organization [facility] Care Team Providers Care Ordnance Officer Name Role Phone Harper Shin Unavailable LUIS ., DR FITZGERALD Admitting Unavailable HOY ., DR FITZGERALD Attending Unavailable HOY ., DR FITZGERALD Consulting Unavailable NADERER, DR HUBER Hu Primary Care Unavailable ZIEBER, DR AC Tolentino Consulting Unavailable HAY ., DR ALBERTO Consulting Unavailable SCHRELEE OLSEN Consulting Unavailable SWARTZ, LANE Consulting Unavailable NADYURI, DR HUBER Hu Admitting Unavailable NADERER, DR HUBER Hu Attending Unavailable ZIEBER, DR AC Tolentino [...] Attending Unavailable Huber Dewey Primary Care Unavailable uHber Dewey MD Primary Care Provider [phone] FIOR PINON Attending Unavailable FIOR PINON Referring Unavailable FIOR PINON Attending Unavailable NO PCP, NO PCP Primary Care Unavailable DAV PAL Attending Unavailable Allergies Allergy Classification Reported Allergen(s) Allergy Type Date of Onset Reaction(s) Facility (1 source) Penicillins Drug allergy (disorder) 04-07-2023 [facility] Repository Medications Current Medications Medication Drug Class(es) [...] for pain for 7 days HEATHER # [id number] March, Active Penicillin (2 sources) Penicillin 28 [...] 05-29-2025 Episodic Other aftercare (1 source) 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 Diffuse osteopenia. Small enthesophyte at the insertion of the Achilles tendon. Mild radiopacity across the tibia approximately 3 cm above the fused distal tibial physis. Talus appears well seated within the ankle mortise. No fractures or dislocations noted. [facility] [employer] [facility] On[facility]uc[facility] e Radiology Study observation (narrative) [facility] XR elbow LT 2Von 05-06-2023 XR elbow LT 2V [facility] [place] [address] [place] [address] XRay Report Signed Patient: Laura Tyler MR#: [id number] : 1965 Acct:[id number] Age/Sex: 57 / F ADM Date: 05/06/23 Loc: [place] Room: Type: [facility] Attending Dr: Janny Concepcion DO Copies to: [...] Braden Rae M.D.05/06/2023 10:05 AM Dictation Location: [place] [address] Transcribed By: [facility] 05/06/23 1005 Dictated By: Braden Rae II, MD 05/06/23 1003 Signed By: 05/06/23 100[address] [facility] [address] forearm LT wo conon 04-06 CT forearm LT wo con [facility] [address] CT Scan Report Signed Patient: Laura Tyler MR#: [id number] : 1965 Acct:[id number] Age/Sex: 57 / F ADM Date: 04/06/23 Loc: [place] Room: Type: [facility] Attending Dr: Janny Concepcion DO Copies to: Janny Concepcion DO Ordering Provider: Janny Concepcion DO Date of Service: 04/06/23 CT/CT humerus LT wo con: L03.114 ([id number]) CT/CT forearm LT wo con: Left arm [...] Braden Rae M.D.04/06/2023 4:54 PM Dictation Location: [place] [address] Transcribed By: [facility] 04/06/23 165 Dictated By: Braden Rae II, MD 04/06/23 1648 Signed By: 04/06/231653 Normal [facility] C-Reactive Proteinon 023 C-Reactive Protein 8.3 mg/dL High 0.0-0.5 [facility] Comment on above: Result Comment: PERF ORMED BY: [place] [address] PATHOLOGIST AUTOMATION QA TESTER FREDY PRICE M.D. Performed By: #### C RP #### [address] Complete Blood Count Auto Di ffon 04-02-2023 Basophils (Bld) [#/Vol] 0.1 10*3/uL Normal 0.0-0.2 [facility] Comment on above: Result Comment: PERF ORMED BY: [place] [address] PATHOLOGIST AUTOMATION QA TESTER FREDY PRICE M.D. Performed By: #### C BC #### [address] Basophils/100 WBC (Bld) 0.6 % Normal . [facility] Comment on above: Performed By: #### C BC #### [address] Eosinophils (Bld) [#/Vol] 0.3 10*3/uL Normal 0.0-0.45 [facility] Comment on above: Performed By: #### C BC #### [address] Eosinophils/100 WBC (Bld) 2.5 % Normal . [facility] Comment on above: Performed By: #### C BC #### [address] Erythrocyte distribution width (RBC) [Ratio] 14.2 % Normal 11.9-15.3 [facility] Comment on above: Performed By: #### C BC #### [address] Hematocrit (Bld) [Volume fraction] 34.0 % Normal 34.0-46.4 [facility] Comment on above: Performed By: #### C BC #### [address] Hemoglobin (Bld) [Mass/Vol] 10.9 g/dL Low 11.8-15.4 [facility] Comment on above: Performed By: #### C BC #### [address] Lymphocytes (Bld) [#/Vol] 1.0 10*3/uL Normal 1.00-4.8 [facility] Comment on above: Performed By: #### C BC #### [address] Lymphocytes/100 WBC (Bld) 8.8 % Normal . [facility] Comment on above: Performed By: #### C BC #### [address] MCH (RBC) [Entitic mass] 27.3 pg Normal 24.7-34.3 [facility] Comment on above: Performed By: #### C BC #### [address] MCV (RBC) [Entitic vol] 85.4 fL Normal 80-100 [facility] Comment on above: Performed By: #### C BC #### [address] Mean Corpuscular HGB Conc 32.0 g/dL Normal 32.0-35.0 [facility] Comment on above: Performed By: #### C BC #### [address] Monocytes (Bld) [#/Vol] 0.3 10*3/uL Normal 0.0-0.8 [facility] Comment on above: Performed By: #### C BC #### [address] Monocytes/100 WBC (Bld) 2.3 % Normal . [facility] Comment on above: Performed By: #### C BC #### [address] Neutrophils (Bld) [#/Vol] 9.9 10*3/uL High 1.8-7.7 [facility] Comment on above: Performed By: #### C BC #### [address] Neutrophils/100 WBC (Bld) 85.8 % Normal . [facility] Comment on above: Performed By: #### C BC #### [address] NRBC% 0.0 /100{WBC} Normal 0-0.5 [facility] Comment on above: Performed By: #### C BC #### [address] Platelet mean volume (Bld) [Entitic vol] 7.5 fL Normal 6.3-10.7 [facility] Comment on above: Performed By: #### C BC #### [address] Platelets (Bld) [#/Vol] 476 10*3/uL High 150-450 [facility] Comment on above: Performed By: #### C BC #### [facility] [address] RBC (Bld) [#/Vol] 3.98 10*6/uL Normal 3.60-5.00 [facility] Comment on above: Performed By: #### C BC #### [facility] [address] WBC (Bld) [#/Vol] 11.5 10*3/uL Normal 3.8-11.6 [facility] Comment on above: Performed By: #### C BC #### [facility] [address] Basic Metabolic Panelon 03-16 Anion gap [Moles/Vol] 9.0 mmol/L Normal 6.0-15.0 [facility] Comment on above: Performed By: #### B MP #### [facility] [address] Calcium [Mass/Vol] 7.7 mg/dL Low 8.6-10.3 [facility] Comment on above: Performed By: #### B MP #### [facility] [address] Chloride [Moles/Vol] 102 mmol/L Normal 98-107 [facility] Comment on above: Performed By: #### B MP #### [address] CO2 [Moles/Vol] 30.4 mmol/L Normal 21.0-31.0 [facility] Comment on above: Performed By: #### B MP #### [facility] [address] Creatinine [Mass/Vol] 0.63 mg/dL Normal 0.60-1.20 [facility] Comment on above: Performed By: #### B MP #### [facility] [address] [place] [address] Creatinine Clr Calc Pharmacy 109.55 Normal [facility] Comment on above: Result Comment: PERF ORMED BY: [place] [address] PATHOLOGIST AUTOMATION QA TESTER FREDY PRICE M.D. Performed By: #### B MP #### [place] [address] [place] GFR/1.73 sq M.predicted MDRD (S/P/Bld) [Vol rate/Area] mL/min/{1.73_m2} Normal [facility] Comment on above: Performed By: #### B MP #### [address] Glucose [Mass/Vol] 85 mg/dL Normal 70-100 [facility] Comment on above: Result Comment: [facility] Glucose Reference Range is dependent on time and content of last meal. Glucose of more than 200 mg/dL in a nonstressed, ambulatory subject supports the diagnosis of Diabetes Mellitus. ADA recommended reference range Performed By: #### B MP #### [address] Potassium [Moles/Vol] 4.4 mmol/L Normal 3.5-5.1 [facility] Comment on above: Performed By: #### B MP #### [address] Sodium [Moles/Vol] 137 mmol/L Normal 136-145 [facility] Comment on above: Performed By: #### B MP #### [place] [address] [place] Urea nitrogen [Mass/Vol] 14 mg/dL Normal 7-25 [facility] Comment on above: Performed By: #### B MP #### [address] Complete Blood Count Auto Di ffon 04-01-2023 Basophils (Bld) [#/Vol] 0.0 10*3/uL Normal 0.0-0.2 [facility] Comment on above: Result Comment: PERF ORMED BY: [place] [address] PATHOLOGIST AUTOMATION QA TESTER FREDY PRICE M.D. Performed By: #### E SR, CRP #### [facility] [address] [place] [address] [place] Basophils/100 WBC (Bld) 0.4 % Normal . [facility] Comment on above: Performed By: #### E SR, CRP #### [facility] [address] [place] [address] [place] Eosinophils (Bld) [#/Vol] 0.2 10*3/uL Normal 0.0-0.45 [facility] Comment on above: Performed By: #### E SR, CRP #### [facility] [address] [place] [address] [place] Eosinophils/100 WBC (Bld) 1.4 % Normal . [facility] Comment on above: Performed By: #### E SR, CRP #### [facility] [address] [place] [address] Erythrocyte distribution width (RBC) [Ratio] 14.5 % Normal 11.9-15.3 [facility] Comment on above: Performed By: #### E SR, CRP #### [facility] [address] [place] [address] [place] Hematocrit (Bld) [Volume fraction] 32.7 % Low 34.0-46.4 [facility] Comment on above: Performed By: #### E SR, CRP #### [facility] [address] [place] [address] [place] Hemoglobin (Bld) [Mass/Vol] 10.6 g/dL Low 11.8-15.4 [facility] Comment on above: Performed By: #### E SR, CRP #### [facility] [address] [place] [address] [place] Lymphocytes (Bld) [#/Vol] 1.0 10*3/uL Normal 1.00-4.8 [facility] Comment on above: Performed By: #### E SR, CRP #### [facility] [address] [place] [address] [place] Lymphocytes/100 WBC (Bld) 8.7 % Normal . [facility] Comment on above: Performed By: #### E SR, CRP #### [facility] [address] MCH (RBC) [Entitic mass] 27.6 pg Normal 24.7-34.3 [facility] Comment on above: Performed By: #### E SR, CRP #### [facility] [address] MCV (RBC) [Entitic vol] 85.4 fL Normal 80-100 [facility] Comment on above: Performed By: #### E SR, CRP #### [facility] [address] [place] [address] Mean Corpuscular HGB Conc 32.3 g/dL Normal 32.0-35.0 [facility] Comment on above: Performed By: #### E SR, CRP #### [facility] [address] [place] [address] Monocytes (Bld) [#/Vol] 0.3 10*3/uL Normal 0.0-0.8 [facility] Comment on above: Performed By: #### E SR, CRP #### [facility] [address] [place] [address] Monocytes/100 WBC (Bld) 2.7 % Normal . [facility] Comment on above: Performed By: #### E SR, CRP #### [facility] [address] [place] [address] Neutrophils (Bld) [#/Vol] 10.4 10*3/uL High 1.8-7.7 [facility] Comment on above: Performed By: #### E SR, CRP #### [facility] [address] [place] [address] [place] Neutrophils/100 WBC (Bld) 86.8 % Normal . [facility] Comment on above: Performed By: #### E SR, CRP #### [facility] [address] [place] [address] NRBC% 0.1 /100{WBC} Normal 0-0.5 [facility] Comment on above: Performed By: #### E SR, CRP #### [facility] [address] [place] [address] Platelet mean volume (Bld) [Entitic vol] 7.6 fL Normal 6.3-10.7 [facility] Comment on above: Performed By: #### E SR, CRP #### [address] Platelets (Bld) [#/Vol] 450 10*3/uL Normal 150-450 [facility] Comment on above: Performed By: #### E SR, CRP #### [address] RBC (Bld) [#/Vol] 3.83 10*6/uL Normal 3.60-5.00 [facility] Comment on above: Performed By: #### E SR, CRP #### [address] WBC (Bld) [#/Vol] 12.0 10*3/uL High 3.8-11.6 [facility] Comment on above: Performed By: #### Jeffery SR, CRP #### [address] Basic Metabolic Panelon 05-1 Anion gap [Moles/Vol] 10.7 mmol/L Normal 6.0-15.0 [facility] Comment on above: Performed By: #### B MP, CBC #### [address] Calcium [Mass/Vol] 7.7 mg/dL Low 8.6-10.3 [facility] Comment on above: Performed By: #### B MP, CBC #### [address] Chloride [Moles/Vol] 101 mmol/L Normal 98-107 [facility] Comment on above: Performed By: #### B MP, CBC #### [address] CO2 [Moles/Vol] 31.2 mmol/L High 21.0-31.0 [facility] Comment on above: Performed By: #### B MP, CBC #### [facility] [address] [place] [address] [place] Creatinine [Mass/Vol] 0.71 mg/dL Normal 0.60-1.20 [facility] Comment on above: Performed By: #### B MP, CBC #### [facility] [address] [place] [address] [place] Creatinine Clr Calc Pharmacy 97.38 Normal [facility] Comment on above: Result Comment: PERF ORMED BY: [place] [address] PATHOLOGIST AUTOMATION QA TESTER FREDY PRICE M.D. Performed By: #### B MP, CBC #### [place] [address] [place] GFR/1.73 sq M.predicted MDRD (S/P/Bld) [Vol rate/Area] mL/min/{1.73_m2} Normal [facility] Comment on above: Performed By: #### B MP, CBC #### [address] Glucose [Mass/Vol] 84 mg/dL Normal 70-100 [facility] Comment on above: Result Comment: [place] Glucose Reference Range is dependent on time and content of last meal. Glucose of more than 200 mg/dL in a nonstressed, ambulatory subject supports the diagnosis of Diabetes Mellitus. ADA recommended reference range Performed By: #### B MP, CBC #### [place] [address] [place] Potassium [Moles/Vol] 3.9 mmol/L Normal 3.5-5.1 [facility] Comment on above: Performed By: #### B MP, CBC #### [place] [address] [place] Sodium [Moles/Vol] 139 mmol/L Normal 136-145 [facility] Comment on above: Performed By: #### B MP, CBC #### [facility] [address] [place] [address] [place] Urea nitrogen [Mass/Vol] 17 mg/dL Normal 7-25 [facility] Comment on above: Performed By: #### B MP, CBC #### [facility] [address] Complete Blood Count Auto Di ffon 03-31-2023 Basophils (Bld) [#/Vol] 0.1 10*3/uL Normal 0.0-0.2 [facility] Comment on above: Result Comment: PERF ORMED BY: [place] [address] PATHOLOGIST AUTOMATION QA TESTER FREDY PRICE M.D. Performed By: #### B MP, CBC #### [address] Basophils/100 WBC (Bld) 0.3 % Normal . [facility] Comment on above: Performed By: #### B MP, CBC #### [address] Eosinophils (Bld) [#/Vol] 0.1 10*3/uL Normal 0.0-0.45 [facility] Comment on above: Performed By: #### B MP, CBC #### [address] Eosinophils/100 WBC (Bld) 0.9 % Normal . [facility] Comment on above: Performed By: #### B MP, CBC #### [address] Erythrocyte distribution width (RBC) [Ratio] 14.2 % Normal 11.9-15.3 [facility] Comment on above: Performed By: #### B MP, CBC #### [facility] [address] [place] [address] Hematocrit (Bld) [Volume fraction] 33.1 % Low 34.0-46.4 [facility] Comment on above: Performed By: #### B MP, CBC #### [address] Hemoglobin (Bld) [Mass/Vol] 10.6 g/dL Low 11.8-15.4 [facility] Comment on above: Performed By: #### B MP, CBC #### [facility] [address] Lymphocytes (Bld) [#/Vol] 0.9 10*3/uL Low 1.00-4.8 [facility] Comment on above: Performed By: #### B MP, CBC #### [address] Lymphocytes/100 WBC (Bld) 6.1 % Normal . [facility] Comment on above: Performed By: #### B MP, CBC #### [address] MCH (RBC) [Entitic mass] 27.3 pg Normal 24.7-34.3 [facility] Comment on above: Performed By: #### B MP, CBC #### [address] MCV (RBC) [Entitic vol] 85.5 fL Normal 80-100 [facility] Comment on above: Performed By: #### B MP, CBC #### [address] Mean Corpuscular HGB Conc 31.9 g/dL Low 32.0-35.0 [facility] Comment on above: Performed By: #### B MP, CBC #### [address] Monocytes (Bld) [#/Vol] 0.3 10*3/uL Normal 0.0-0.8 [facility] Comment on above: Performed By: #### B MP, CBC #### [place] [address] [place] Monocytes/100 WBC (Bld) 2.3 % Normal . [facility] Comment on above: Performed By: #### B MP, CBC #### [address] Neutrophils (Bld) [#/Vol] 13.5 10*3/uL High 1.8-7.7 [facility] Comment on above: Performed By: #### B MP, CBC #### [address] Neutrophils/100 WBC (Bld) 90.4 % Normal . [facility] Comment on above: Performed By: #### B MP, CBC #### [facility] [address] NRBC% 0.0 /100{WBC} Normal 0-0.5 [facility] Comment on above: Performed By: #### B MP, CBC #### [address] Platelet mean volume (Bld) [Entitic vol] 7.8 fL Normal 6.3-10.7 [facility] Comment on above: Performed By: #### B MP, CBC #### [address] Platelets (Bld) [#/Vol] 447 10*3/uL Normal 150-450 [facility] Comment on above: Performed By: #### B MP, CBC #### [address] RBC (Bld) [#/Vol] 3.87 10*6/uL Normal 3.60-5.00 [facility] Comment on above: Performed By: #### B MP, CBC #### [address] WBC (Bld) [#/Vol] 14.9 10*3/uL High 3.8-11.6 [facility] Comment on above: Performed By: #### B MP, CBC #### [address] Basic Metabolic Panelon 05- Anion gap [Moles/Vol] 8.2 mmol/L Normal 6.0-15.0 [facility] Comment on above: Performed By: #### E SR, CRP #### [address] Calcium [Mass/Vol] 8.1 mg/dL Low 8.6-10.3 [facility] Comment on above: Performed By: #### E SR, CRP #### [facility] [address] [place] [address] [place] Chloride [Moles/Vol] 100 mmol/L Normal 98-107 [facility] Comment on above: Performed By: #### E SR, CRP #### [facility] [address] [place] [address] [place] CO2 [Moles/Vol] 34.7 mmol/L High 21.0-31.0 [facility] Comment on above: Performed By: #### E SR, CRP #### [facility] [address] [place] [address] [place] Creatinine [Mass/Vol] 0.65 mg/dL Normal 0.60-1.20 [facility] Comment on above: Performed By: #### E SR, CRP #### [facility] [address] [place] [address] [place] Creatinine Clr Calc Pharmacy 105.75 [facility] Comment on above: Performed By: #### E SR, CRP #### [facility] [address] [place] [address] [place] GFR/1.73 sq M.predicted MDRD (S/P/Bld) [Vol rate/Area] mL/min/{1.73_m2} [facility] Comment on above: Performed By: #### E SR, CRP #### [facility] [address] [place] [address] [place] Glucose [Mass/Vol] 120 mg/dL High 70-100 [facility] Comment on above: Result Comment: [place] Glucose Reference Range is dependent on time and content of last meal. Glucose of more than 200 mg/dL in a nonstressed, ambulatory subject supports the diagnosis of Diabetes Mellitus. ADA recommended reference range Performed By: #### E SR, CRP #### [facility] [address] [place] [address] [place] Potassium [Moles/Vol] 3.9 mmol/L Normal 3.5-5.1 [facility] Comment on above: Performed By: #### E SR, CRP #### [place] [address] Sodium [Moles/Vol] 139 mmol/L Normal 136-145 [facility] Comment on above: Performed By: #### E SR, CRP #### [address] Urea nitrogen [Mass/Vol] 16 mg/dL Normal 7-25 [facility] Comment on above: Performed By: #### E SR, CRP #### [address] Complete Blood Count Auto Di ffon 03-30-2023 Basophils (Bld) [#/Vol] 0.1 10*3/uL Normal 0.0-0.2 [facility] Comment on above: Result Comment: PERF ORMED BY: [place] [address] PATHOLOGIST AUTOMATION QA TESTER FREDY PRICE M.D. Performed By: #### E SR, CRP #### [address] Basophils/100 WBC (Bld) 0.4 % Normal . [facility] Comment on above: Performed By: #### E SR, CRP #### [address] Eosinophils (Bld) [#/Vol] 0.0 10*3/uL Normal 0.0-0.45 [facility] Comment on above: Performed By: #### E SR, CRP #### [address] Eosinophils/100 WBC (Bld) 0.0 % Normal . [facility] Comment on above: Performed By: #### E SR, CRP #### [address] Erythrocyte distribution width (RBC) [Ratio] 14.2 % Normal 11.9-15.3 [facility] Comment on above: Performed By: #### E SR, CRP #### [address] Hematocrit (Bld) [Volume fraction] 34.8 % Normal 34.0-46.4 [facility] Comment on above: Performed By: #### E SR, CRP #### [facility] [address] Hemoglobin (Bld) [Mass/Vol] 11.1 g/dL Low 11.8-15.4 [facility] Comment on above: Performed By: #### E SR, CRP #### [facility] [address] Lymphocytes (Bld) [#/Vol] 0.9 10*3/uL Low 1.00-4.8 [facility] Comment on above: Performed By: #### E SR, CRP #### [facility] [address] Lymphocytes/100 WBC (Bld) 3.6 % Normal . [facility] Comment on above: Performed By: #### E SR, CRP #### [facility] [address] MCH (RBC) [Entitic mass] 27.0 pg Normal 24.7-34.3 [facility] Comment on above: Performed By: #### E SR, CRP #### [facility] [address] MCV (RBC) [Entitic vol] 84.5 fL Normal 80-100 [facility] Comment on above: Performed By: #### E SR, CRP #### [facility] [address] Mean Corpuscular HGB Conc 32.0 g/dL Normal 32.0-35.0 [facility] Comment on above: Performed By: #### E SR, CRP #### [facility] [address] [place] [address] [place] Monocytes (Bld) [#/Vol] 0.5 10*3/uL Normal 0.0-0.8 [facility] Comment on above: Performed By: #### E SR, CRP #### [facility] [address] [place] [address] [place] Monocytes/100 WBC (Bld) 2.3 % Normal . [facility] Comment on above: Performed By: #### E SR, CRP #### [facility] [address] [place] [address] [place] Neutrophils (Bld) [#/Vol] 22.4 10*3/uL High 1.8-7.7 [facility] Comment on above: Performed By: #### E SR, CRP #### [facility] [address] [place] [address] [place] Neutrophils/100 WBC (Bld) 93.7 % Normal . [facility] Comment on above: Performed By: #### E SR, CRP #### [facility] [address] [place] [address] [place] NRBC% 0.0 /100{WBC} Normal 0-0.5 [facility] Comment on above: Performed By: #### E SR, CRP #### [facility] [address] [place] [address] [place] Platelet mean volume (Bld) [Entitic vol] 8.1 fL Normal 6.3-10.7 [facility] Comment on above: Performed By: #### E SR, CRP #### [facility] [address] [place] [address] [place] Platelets (Bld) [#/Vol] 398 10*3/uL Normal 150-450 [facility] Comment on above: Performed By: #### E SR, CRP #### [facility] [address] [place] [address] [place] RBC (Bld) [#/Vol] 4.12 10*6/uL Normal 3.60-5.00 [facility] Comment on above: Performed By: #### E SR, CRP #### [facility] [address] [place] [address] [place] WBC (Bld) [#/Vol] 23.9 10*3/uL High 3.8-11.6 [facility] Comment on above: Performed By: #### E SR, CRP #### [facility] [address] [place] [address] [place] ECG 12 lead ECGon 05-15-2023 ECG 12 lead ECG [facility] [address] [place] [address] Electrocardiograph Report Signed Patient: Laura Tyler MR#: [id number] : 1965 Acct:[id number] Age/Sex: 57 / F ADM Date: 03/26/23 Loc: Room: [address] [place] [address] Type: ADM IN Attending Dr: Arabella Bynum [...] Nishant Anders MD 0 03/30/23 1627 Normal [facility] Magnesiumon 03-30-2023 Magnesium [Mass/Vol] 1.8 mg/dL Low 1.9-2.7 [facility] Comment on above: Result Comment: PERF ORMED BY: [place] [address] PATHOLOGIST AUTOMATION QA TESTER FREDY PRICE M.D. Performed By: #### E SR, CRP #### [address] Aerobic Cultureon 03-29-2023 Aerobic Culture ORGANISM: Streptococcus pyogenes grp A (O:STRPYO) Comments Organism Not Routinely Tested for Susceptibilities Quantity of Growth Light Growth No Anaerobes Isolated 3 Days Gram Stain Result 1+ White Blood Cells Rare Gram Positive Cocci PERFORMED BY: [place] [address] PATHOLOGIST AUTOMATION QA TESTER FREDY PRICE M.D. Normal [facility] Comment on above: Performed By: #### B MP, CBC #### [facility] [address] Basic Metabolic Panelon 05-1 Anion gap [Moles/Vol] 9.8 mmol/L Normal 6.0-15.0 [facility] Comment on above: Performed By: #### B MP, CBC #### [facility] [address] Calcium [Mass/Vol] 8.2 mg/dL Low 8.6-10.3 [facility] Comment on above: Performed By: #### B MP, CBC #### [facility] [address] Chloride [Moles/Vol] 100 mmol/L Normal 98-107 [facility] Comment on above: Performed By: #### B MP, CBC #### [address] CO2 [Moles/Vol] 31.7 mmol/L High 21.0-31.0 [facility] Comment on above: Performed By: #### B MP, CBC #### [facility] [address] Creatinine [Mass/Vol] 0.60 mg/dL Normal 0.60-1.20 [facility] Comment on above: Performed By: #### B MP, CBC #### [facility] [address] [place] [address] [place] Creatinine Clr Calc Pharmacy 114.56 Normal [facility] Comment on above: Result Comment: PERF ORMED BY: [place] [address] PATHOLOGIST AUTOMATION QA TESTER FREDY PRICE M.D. Performed By: #### B MP, CBC #### [facility] [address] [place] [address] [place] GFR/1.73 sq M.predicted MDRD (S/P/Bld) [Vol rate/Area] mL/min/{1.73_m2} Normal [facility] Comment on above: Performed By: #### B MP, CBC #### [facility] [address] Glucose [Mass/Vol] 92 mg/dL Normal 70-100 [facility] Comment on above: Result Comment: [facility] Glucose Reference Range is dependent on time and content of last meal. Glucose of more than 200 mg/dL in a nonstressed, ambulatory subject supports the diagnosis of Diabetes Mellitus. ADA recommended reference range Performed By: #### B MP, CBC #### [facility] [address] Potassium [Moles/Vol] 3.5 mmol/L Normal 3.5-5.1 [facility] Comment on above: Performed By: #### B MP, CBC #### [address] Sodium [Moles/Vol] 138 mmol/L Normal 136-145 [facility] Comment on above: Performed By: #### B MP, CBC #### [address] Urea nitrogen [Mass/Vol] 9 mg/dL Normal 7-25 [facility] Comment on above: Performed By: #### B MP, CBC #### [address] Complete Blood Count Auto Di ffon 03-29-2023 Basophils (Bld) [#/Vol] 0.1 10*3/uL Normal 0.0-0.2 [facility] Comment on above: Result Comment: PERF ORMED BY: [place] [address] PATHOLOGIST AUTOMATION QA TESTER FREDY PRICE M.D. Performed By: #### B MP, CBC #### [place] [address] [place] Basophils/100 WBC (Bld) 0.3 % Normal . [facility] Comment on above: Performed By: #### B MP, CBC #### [facility] [address] [place] [address] [place] Eosinophils (Bld) [#/Vol] 0.2 10*3/uL Normal 0.0-0.45 [facility] Comment on above: Performed By: #### B MP, CBC #### [facility] [address] Eosinophils/100 WBC (Bld) 1.0 % Normal . [facility] Comment on above: Performed By: #### B MP, CBC #### [address] Erythrocyte distribution width (RBC) [Ratio] 14.3 % Normal 11.9-15.3 [facility] Comment on above: Performed By: #### B MP, CBC #### [address] Hematocrit (Bld) [Volume fraction] 35.2 % Normal 34.0-46.4 [facility] Comment on above: Performed By: #### B MP, CBC #### [address] Hemoglobin (Bld) [Mass/Vol] 11.4 g/dL Low 11.8-15.4 [facility] Comment on above: Performed By: #### B MP, CBC #### [place] [address] [place] Lymphocytes (Bld) [#/Vol] 1.0 10*3/uL Normal 1.00-4.8 [facility] Comment on above: Performed By: #### B MP, CBC #### [place] [address] [place] Lymphocytes/100 WBC (Bld) 4.7 % Normal . [facility] Comment on above: Performed By: #### B MP, CBC #### [address] MCH (RBC) [Entitic mass] 27.3 pg Normal 24.7-34.3 [facility] Comment on above: Performed By: #### B MP, CBC #### [facility] [address] MCV (RBC) [Entitic vol] 84.1 fL Normal 80-100 [facility] Comment on above: Performed By: #### B MP, CBC #### [facility] [address] Mean Corpuscular HGB Conc 32.5 g/dL Normal 32.0-35.0 [facility] Comment on above: Performed By: #### B MP, CBC #### [facility] [address] Monocytes (Bld) [#/Vol] 0.8 10*3/uL Normal 0.0-0.8 [facility] Comment on above: Performed By: #### B MP, CBC #### [address] Monocytes/100 WBC (Bld) 3.8 % Normal . [facility] Comment on above: Performed By: #### B MP, CBC #### [address] Neutrophils (Bld) [#/Vol] 18.4 10*3/uL High 1.8-7.7 [facility] Comment on above: Performed By: #### B MP, CBC #### [address] Neutrophils/100 WBC (Bld) 90.2 % Normal . [facility] Comment on above: Performed By: #### B MP, CBC #### [address] NRBC% 0.0 /100{WBC} Normal 0-0.5 [facility] Comment on above: Performed By: #### B MP, CBC #### [address] Platelet mean volume (Bld) [Entitic vol] 8.2 fL Normal 6.3-10.7 [facility] Comment on above: Performed By: #### B MP, CBC #### [place] [address] [place] Platelets (Bld) [#/Vol] 368 10*3/uL Normal 150-450 [facility] Comment on above: Performed By: #### B MP, CBC #### [address] RBC (Bld) [#/Vol] 4.18 10*6/uL Normal 3.60-5.00 [facility] Comment on above: Performed By: #### B MP, CBC #### [address] WBC (Bld) [#/Vol] 20.4 10*3/uL High 3.8-11.6 [facility] Comment on above: Performed By: #### B MP, CBC #### [address] Basic Metabolic Panelon 05- Anion gap [Moles/Vol] 10.1 mmol/L Normal 6.0-15.0 [facility] Comment on above: Performed By: #### B MP, CBC #### [address] Calcium [Mass/Vol] 8.0 mg/dL Low 8.6-10.3 [facility] Comment on above: Performed By: #### B MP, CBC #### [address] Chloride [Moles/Vol] 101 mmol/L Normal 98-107 [facility] Comment on above: Performed By: #### B MP, CBC #### [address] CO2 [Moles/Vol] 29.2 mmol/L Normal 21.0-31.0 [facility] Comment on above: Performed By: #### B MP, CBC #### [address] Creatinine [Mass/Vol] 0.68 mg/dL Normal 0.60-1.20 [facility] Comment on above: Performed By: #### B MP, CBC #### [facility] [address] [place] [address] [place] Creatinine Clr Calc Pharmacy 88.34 Normal [facility] Comment on above: Result Comment: PERF ORMED BY: [place] [address] PATHOLOGIST AUTOMATION QA TESTER FREDY PRICE M.D. Performed By: #### B MP, CBC #### [place] [address] [place] GFR/1.73 sq M.predicted MDRD (S/P/Bld) [Vol rate/Area] mL/min/{1.73_m2} Normal [facility] Comment on above: Performed By: #### B MP, CBC #### [address] Glucose [Mass/Vol] 92 mg/dL Normal 70-100 [facility] Comment on above: Result Comment: [place] Glucose Reference Range is dependent on time and content of last meal. Glucose of more than 200 mg/dL in a nonstressed, ambulatory subject supports the diagnosis of Diabetes Mellitus. ADA recommended reference range Performed By: #### B MP, CBC #### [address] Potassium [Moles/Vol] 3.3 mmol/L Low 3.5-5.1 [facility] Comment on above: Performed By: #### B MP, CBC #### [place] [address] [place] Sodium [Moles/Vol] 137 mmol/L Normal 136-145 [facility] Comment on above: Performed By: #### B MP, CBC #### [place] [address] [place] Urea nitrogen [Mass/Vol] 9 mg/dL Normal 7-25 [facility] Comment on above: Performed By: #### B MP, CBC #### [place] [address] [place] Blood Cultureon 03-28-2023 Bacteria identified Cx Nom (Bld) NO GROWTH 5 DAYS PERFORMED BY: [place] [address] PATHOLOGIST AUTOMATION QA TESTER FREDY PRICE M.D. [facility] Comment on above: Performed By: #### B MP, CBC #### [place] [id number] [facility] C-Reactive Proteinon 023 C-Reactive Protein 25.4 mg/dL High 0.0-0.5 [facility] Comment on above: Result Comment: PERF ORMED BY: [place] [address] PATHOLOGIST AUTOMATION QA TESTER FREDY PRICE M.D. Performed By: #### E SR, CRP #### [address] forearm LT w conon 2022 CT forearm LT w con [facility] [place] [address] [place] [address] CT Scan Report Signed Patient: Laura Tyler MR#: [id number] : 1965 Acct:[id number] Age/Sex: 57 / F ADM Date: 03/26/23 Loc: Room: [address] [place] [address] Type: ADM IN Attending Dr: John Kimball MD Copies to: MD Janny Staples DO Ordering Provider: Janny Concepcion DO Date of Service: 03/28/23 CT/CT humerus LT w con: cellulitis ([id number]) CT/CT forearm LT w con: cellulitis CT [...] Braden Rae M.D.03/28/2023 12:19 PM Dictation Location: [place] [address] Transcribed By: [facility] 03/28/23 1219 Dictated By: Braden Rae II, MD 03/28/23 1212 Signed By: 03/28/23 1219 Normal [facility] Complete Blood Count Auto Di ffon 03-28-2023 Basophils (Bld) [#/Vol] 0.1 10*3/uL Normal 0.0-0.2 [facility] Comment on above: Result Comment: PERF ORMED BY: [place] [address] PATHOLOGIST AUTOMATION QA TESTER FREDY PRICE M.D. Performed By: #### B MP, CBC #### [facility] [address] [place] [address] [place] Basophils/100 WBC (Bld) 0.4 % Normal . [facility] Comment on above: Performed By: #### B MP, CBC #### [facility] [address] [place] [address] [place] Eosinophils (Bld) [#/Vol] 0.2 10*3/uL Normal 0.0-0.45 [facility] Comment on above: Performed By: #### B MP, CBC #### [facility] [address] [place] [address] [place] Eosinophils/100 WBC (Bld) 1.1 % Normal . [facility] Comment on above: Performed By: #### B MP, CBC #### [facility] [address] Erythrocyte distribution width (RBC) [Ratio] 14.7 % Normal 11.9-15.3 [facility] Comment on above: Performed By: #### B MP, CBC #### [address] Hematocrit (Bld) [Volume fraction] 36.0 % Normal 34.0-46.4 [facility] Comment on above: Performed By: #### B MP, CBC #### [address] Hemoglobin (Bld) [Mass/Vol] 11.6 g/dL Low 11.8-15.4 [facility] Comment on above: Performed By: #### B MP, CBC #### [address] Lymphocytes (Bld) [#/Vol] 0.9 10*3/uL Low 1.00-4.8 [facility] Comment on above: Performed By: #### B MP, CBC #### [place] [address] [place] Lymphocytes/100 WBC (Bld) 4.3 % Normal . [facility] Comment on above: Performed By: #### B MP, CBC #### [address] MCH (RBC) [Entitic mass] 27.2 pg Normal 24.7-34.3 [facility] Comment on above: Performed By: #### B MP, CBC #### [address] MCV (RBC) [Entitic vol] 84.7 fL Normal 80-100 [facility] Comment on above: Performed By: #### B MP, CBC #### [address] Mean Corpuscular HGB Conc 32.2 g/dL Normal 32.0-35.0 [facility] Comment on above: Performed By: #### B MP, CBC #### [facility] [address] [place] [address] [place] Monocytes (Bld) [#/Vol] 1.0 10*3/uL High 0.0-0.8 [facility] Comment on above: Performed By: #### B MP, CBC #### [facility] [address] [place] [address] [place] Monocytes/100 WBC (Bld) 4.7 % Normal . [facility] Comment on above: Performed By: #### B MP, CBC #### [facility] [address] [place] [address] [place] Neutrophils (Bld) [#/Vol] 18.7 10*3/uL High 1.8-7.7 [facility] Comment on above: Performed By: #### B MP, CBC #### [address] Neutrophils/100 WBC (Bld) 89.5 % Normal . [facility] Comment on above: Performed By: #### B MP, CBC #### [address] NRBC% 0.0 /100{WBC} Normal 0-0.5 [facility] Comment on above: Performed By: #### B MP, CBC #### [facility] [address] Platelet mean volume (Bld) [Entitic vol] 8.6 fL Normal 6.3-10.7 [facility] Comment on above: Performed By: #### B MP, CBC #### [facility] [address] [place] [address] [place] Platelets (Bld) [#/Vol] 329 10*3/uL Normal 150-450 [facility] Comment on above: Performed By: #### B MP, CBC #### [facility] [address] [place] [address] [place] RBC (Bld) [#/Vol] 4.25 10*6/uL Normal 3.60-5.00 [facility] Comment on above: Performed By: #### B MP, CBC #### [facility] [address] [place] [address] WBC (Bld) [#/Vol] 20.8 10*3/uL High 3.8-11.6 [facility] Comment on above: Performed By: #### B MP, CBC #### [facility] [address] [place] [address] ECG 12 lead ECGon 03-28-2023 ECG 12 lead ECG [facility] [place] [address] [place] [address] Electrocardiograph Report Signed Patient: Laura Tyler MR#: [id number] : 1965 Acct:[id number] Age/Sex: 57 / F ADM Date: 03/26/23 Loc: Room: [address] [place] [address] Type: ADM IN Attending Dr: John Kimball [...] By Zi Luna DO 03/29 1145 Normal [facility] Erythrocyte Sedimentation Ra charisma 03-28-2023 ESR (Bld) [Velocity] 79 mm/h High 0-29 [facility] Comment on above: Result Comment: PERF ORMED BY: [place] [address] PATHOLOGIST AUTOMATION QA TESTER FREDY PRICE M.D. Performed By: #### E SR, CRP #### [address] HCG,Quantitativeon HCG,Quantitative 1.38 m[iU]/mL Normal [facility] Comment on above: Result Comment: Appr oximate Approximate hCG Gestational Age Range (mIU/ml) (weeks) 0.2-1 5-50 1-2 50-500 2-3 100-5,000 3-4 500-10,000 4-5 1,000-50,000 5-6 10,000-100,000 6-8 15,000-200,000 8-12 10,000-100,000 PERFORMED BY: [place] [address] PATHOLOGIST AUTOMATION QA TESTER FREDY PRICE M.D. Performed By: #### B MP, CBC #### [facility] [address] [place] [address] Basic Metabolic Panelon 03-16 Anion gap [Moles/Vol] 11.6 mmol/L Normal 6.0-15.0 [facility] Comment on above: Performed By: #### E SR, CRP #### [facility] [address] [place] [address] [place] Calcium [Mass/Vol] 8.2 mg/dL Low 8.6-10.3 [facility] Comment on above: Performed By: #### E SR, CRP #### [facility] [address] [place] [address] [place] Chloride [Moles/Vol] 103 mmol/L Normal 98-107 [facility] Comment on above: Performed By: #### E SR, CRP #### [facility] [address] [place] [address] [place] CO2 [Moles/Vol] 26.5 mmol/L Normal 21.0-31.0 [facility] Comment on above: Performed By: #### E SR, CRP #### [facility] [address] [place] [address] [place] Creatinine [Mass/Vol] 0.74 mg/dL Normal 0.60-1.20 [facility] Comment on above: Performed By: #### E SR, CRP #### [facility] [address] [place] [address] [place] Creatinine Clr Calc Pharmacy 81.17 Normal [facility] Comment on above: Result Comment: PERF ORMED BY: [place] [address] PATHOLOGIST AUTOMATION QA TESTER FREDY PRICE M.D. Performed By: #### E SR, CRP #### [place] [address] [place] GFR/1.73 sq M.predicted MDRD (S/P/Bld) [Vol rate/Area] mL/min/{1.73_m2} Normal [facility] Comment on above: Performed By: #### E SR, CRP #### [address] Glucose [Mass/Vol] 98 mg/dL Normal 70-100 [facility] Comment on above: Result Comment: [facility] Glucose Reference Range is dependent on time and content of last meal. Glucose of more than 200 mg/dL in a nonstressed, ambulatory subject supports the diagnosis of Diabetes Mellitus. ADA recommended reference range Performed By: #### E SR, CRP #### [facility] [address] [place] [address] [place] Potassium [Moles/Vol] 3.1 mmol/L Low 3.5-5.1 [facility] Comment on above: Performed By: #### E SR, CRP #### [facility] [address] [place] [address] [place] Sodium [Moles/Vol] 138 mmol/L Normal 136-145 [facility] Comment on above: Performed By: #### E SR, CRP #### [facility] [address] [place] [address] [place] Urea nitrogen [Mass/Vol] 12 mg/dL Normal 7-25 [facility] Comment on above: Performed By: #### E SR, CRP #### [facility] [address] [place] [address] [place] Complete Blood Count Auto Di ffon 03-27-2023 Basophils (Bld) [#/Vol] 0.2 10*3/uL Normal 0.0-0.2 [facility] Comment on above: Result Comment: PERF ORMED BY: [place] [address] PATHOLOGIST AUTOMATION QA TESTER FREDY PRICE M.D. Performed By: #### C BC, BMP #### [address] Basophils/100 WBC (Bld) 0.7 % Normal . [facility] Comment on above: Performed By: #### C BC, BMP #### [address] Eosinophils (Bld) [#/Vol] 0.1 10*3/uL Normal 0.0-0.45 [facility] Comment on above: Performed By: #### C BC, BMP #### [address] Eosinophils/100 WBC (Bld) 0.5 % Normal . [facility] Comment on above: Performed By: #### C BC, BMP #### [address] Erythrocyte distribution width (RBC) [Ratio] 14.4 % Normal 11.9-15.3 [facility] Comment on above: Performed By: #### C BC, BMP #### [address] Hematocrit (Bld) [Volume fraction] 35.0 % Normal 34.0-46.4 [facility] Comment on above: Performed By: #### C BC, BMP #### [place] [address] [place] Hemoglobin (Bld) [Mass/Vol] 11.1 g/dL Low 11.8-15.4 [facility] Comment on above: Performed By: #### C BC, BMP #### [place] [address] [place] Lymphocytes (Bld) [#/Vol] 0.8 10*3/uL Low 1.00-4.8 [facility] Comment on above: Performed By: #### C BC, BMP #### [facility] [address] Lymphocytes/100 WBC (Bld) 3.4 % Normal . [facility] Comment on above: Performed By: #### C BC, BMP #### [facility] [address] MCH (RBC) [Entitic mass] 26.8 pg Normal 24.7-34.3 [facility] Comment on above: Performed By: #### C BC, BMP #### [facility] [address] MCV (RBC) [Entitic vol] 84.3 fL Normal 80-100 [facility] Comment on above: Performed By: #### C BC, BMP #### [address] Mean Corpuscular HGB Conc 31.8 g/dL Low 32.0-35.0 [facility] Comment on above: Performed By: #### C BC, BMP #### [place] [address] [place] Monocytes (Bld) [#/Vol] 1.1 10*3/uL High 0.0-0.8 [facility] Comment on above: Performed By: #### C BC, BMP #### [place] [address] [place] Monocytes/100 WBC (Bld) 4.8 % Normal . [facility] Comment on above: Performed By: #### C BC, BMP #### [place] [address] [place] Neutrophils (Bld) [#/Vol] 21.6 10*3/uL High 1.8-7.7 [facility] Comment on above: Performed By: #### C BC, BMP #### [address] Neutrophils/100 WBC (Bld) 90.6 % Normal . [facility] Comment on above: Performed By: #### C BC, BMP #### [place] [address] [place] NRBC% 0.0 /100{WBC} Normal 0-0.5 [facility] Comment on above: Performed By: #### C DAVY, BMP #### [address] Platelet mean volume (Bld) [Entitic vol] 8.5 fL Normal 6.3-10.7 [facility] Comment on above: Performed By: #### C DAVY, BMP #### [address] Platelets (Bld) [#/Vol] 319 10*3/uL Normal 150-450 [facility] Comment on above: Performed By: #### C DAVY, BMP #### [address] RBC (Bld) [#/Vol] 4.15 10*6/uL Normal 3.60-5.00 [facility] Comment on above: Performed By: #### C DAVY, BMP #### [address] WBC (Bld) [#/Vol] 23.9 10*3/uL High 3.8-11.6 [facility] Comment on above: Performed By: #### C DAVY, BMP #### [address] Basic Metabolic Panelon 05- Anion gap [Moles/Vol] 11.4 mmol/L Normal 6.0-15.0 [facility] Comment on above: Performed By: #### E SR, CRP #### [address] Calcium [Mass/Vol] 8.2 mg/dL Low 8.6-10.3 [facility] Comment on above: Performed By: #### E SR, CRP #### [address] Chloride [Moles/Vol] 106 mmol/L Normal 98-107 [facility] Comment on above: Performed By: #### E SR, CRP #### [facility] [address] [place] [address] [place] CO2 [Moles/Vol] 24.9 mmol/L Normal 21.0-31.0 [facility] Comment on above: Performed By: #### E SR, CRP #### [facility] [address] Creatinine [Mass/Vol] 0.77 mg/dL Normal 0.60-1.20 [facility] Comment on above: Performed By: #### E SR, CRP #### [facility] [address] [place] [address] [place] Creatinine Clr Calc Pharmacy 77.65 Normal [facility] Comment on above: Result Comment: PERF ORMED BY: [place] [address] PATHOLOGIST AUTOMATION QA TESTER FREDY PRICE M.D. Performed By: #### E SR, CRP #### [facility] [address] [place] [address] [place] GFR/1.73 sq M.predicted MDRD (S/P/Bld) [Vol rate/Area] mL/min/{1.73_m2} Normal [facility] Comment on above: Performed By: #### E SR, CRP #### [facility] [address] [place] [address] [place] Glucose [Mass/Vol] 83 mg/dL Normal 70-100 [facility] Comment on above: Result Comment: [place] Glucose Reference Range is dependent on time and content of last meal. Glucose of more than 200 mg/dL in a nonstressed, ambulatory subject supports the diagnosis of Diabetes Mellitus. ADA recommended reference range Performed By: #### E SR, CRP #### [facility] [address] [place] [address] [place] Potassium [Moles/Vol] 3.3 mmol/L Low 3.5-5.1 [facility] Comment on above: Performed By: #### E SR, CRP #### [facility] [address] [place] [address] [place] Sodium [Moles/Vol] 139 mmol/L Normal 136-145 [facility] Comment on above: Performed By: #### E SR, CRP #### [address] [address] Urea nitrogen [Mass/Vol] 20 mg/dL Normal 7-25 [facility] Comment on above: Performed By: #### E SR, CRP #### [address] C-Reactive Proteinon 023 C-Reactive Protein 28.9 mg/dL High 0.0-0.5 [facility] Comment on above: Result Comment: PERF ORMED BY: [place] [address] PATHOLOGIST AUTOMATION QA TESTER FREDY PRICE M.D. Performed By: #### C RP, ESR #### [address] CBC AUTO DIFFon 03-26-2023 Basophils/100 WBC (Bld) 0.2 % Normal . [facility] Comment on above: Performed By: #### S EDR #### [facility] [address] [address] [address] Virgil Purdy Performed By: #### E SR, CRP #### [address] Erythrocyte distribution width (RBC) [Ratio] 14.5 % Normal 11.9-15.3 [facility] Comment on above: Performed By: #### S EDR #### [facility] [address] [address] [address] Virgil Purdy Performed By: #### E SR, CRP #### [facility] [address] [place] [address] [place] BASO # 0.0 103/ul Normal 0.0-0.1 [facility] Comment on above: Performed By: #### S EDR #### [facility] [address] [address] [address] Virgil Purdy EO # 0.1 103/ul Normal 0.0-0.7 [facility] Comment on above: Performed By: #### S EDR #### [facility] [address] [address] [address] Virgil Purdy Eosinophils/100 WBC (Bld) 0.3 % Critically low 0.9-7.0 [facility] Comment on above: Performed By: #### S EDR #### [facility] [address] [address] [address] Virgil Purdy Hematocrit (Bld) [Volume fraction] 31.0 % Critically low 36.0-48.0 [facility] Comment on above: Performed By: #### S EDR #### [facility] [address] [place] [address] Dr. Virgil Purdy Hemoglobin (Bld) [Mass/Vol] 10.2 g/dL Critically low 12.0-16.0 [facility] Comment on above: Performed By: #### S EDR #### [facility] [address] [place] [address] Dr. Virgil Purdy IG # 0.42 10e3/ul Critically high 0.00-0.[address] [facility] Comment on above: Performed By: #### S EDR #### [facility] [address] [place] [address] Dr. Virgil Purdy IG % 2.4 % Critically high 0.0-0.5 [facility] Comment on above: Performed By: #### S EDR #### [facility] [address] [place] [address] Dr. Virgil Purdy LYMPH # 0.9 103/ul Critically low 1.2-3.8 [facility] Comment on above: Performed By: #### S EDR #### [facility] [address] [place] [address] Dr. Virgil Purdy Lymphocytes/100 WBC (Bld) 5.0 % Critically low 20.5-60.0 [facility] Comment on above: Performed By: #### S EDR #### [facility] [address] [place] [address] Dr. Virgil Purdy MANUAL DIFF REQ NO Normal [facility] Comment on above: Performed By: #### S EDR #### [facility] [address] [address] [address] Virgil Purdy MCH (RBC) [Entitic mass] 27.9 pg Normal 26.7-34.0 [facility] Comment on above: Performed By: #### S EDR #### [facility] [address] [address] [address] Virgil Purdy MCHC (RBC) [Mass/Vol] 32.9 g/dL Normal 29.9-35.2 [facility] Comment on above: Performed By: #### S EDR #### [facility] [address] [address] [address] Virgil Purdy MCV (RBC) [Entitic vol] 84.9 fL Normal 81.0-99.0 [facility] Comment on above: Performed By: #### S EDR #### [facility] [address] [place] [address] Dr. Virgil Purdy MONO # 1.1 103/ul Critically high 0.3-0.8 [facility] Comment on above: Performed By: #### S EDR #### [facility] [address] [address] [address] Virgil Purdy Monocytes/100 WBC (Bld) 6.4 % Normal 1.7-12.0 [facility] Comment on above: Performed By: #### S EDR #### [facility] [address] [place] [address] Dr. Virgil Purdy NEUT # 15.1 103/ul Critically high 1.4-6.5 [facility] Comment on above: Performed By: #### S EDR #### [facility] [address] [place] [address] Dr. Virgil Purdy Neutrophils/100 WBC (Bld) 85.7 % Critically high 43.0-75.0 [facility] Comment on above: Performed By: #### S EDR #### [facility] [address] [place] [address] Dr. Virgil Purdy Platelet mean volume (Bld) [Entitic vol] 11.2 fL Normal 9.5-13.5 [facility] Comment on above: Performed By: #### S EDR #### [facility] [address] [address] [address] Virgil Purdy PLT 244 103/ul Normal 150-450 [facility] Comment on above: Performed By: #### S EDR #### [facility] [address] [address] [address] Virgil Purdy RBC 3.65 106/ul Critically low 4.20-5.40 [facility] Comment on above: Performed By: #### S EDR #### [facility] [address] [address] [address] Virgil Purdy WBC 17.7 103/ul Critically high 4.0-11.0 [facility] Comment on above: Performed By: #### S EDR #### [facility] [address] [address] [address] Virgil Purdy CRPon 03-26-2023 CRP 53.8 mg/dL Critically high <=1.0 [facility] Comment on above: Performed By: #### P T #### [facility] [address] [address] [address] Virgil Purdy Complete Blood Count Auto Di ffon 03-26-2023 Basophils (Bld) [#/Vol] 0.0 10*3/uL Normal 0.0-0.2 [facility] Comment on above: Result Comment: PERF ORMED BY: [place] [address] PATHOLOGIST AUTOMATION QA TESTER FREDY PRICE M.D. Performed By: #### E SR, CRP #### [facility] [address] [place] [address] [place] Eosinophils (Bld) [#/Vol] 0.1 10*3/uL Normal 0.0-0.45 [facility] Comment on above: Performed By: #### E SR, CRP #### [facility] [address] [place] [address] [place] Eosinophils/100 WBC (Bld) 0.5 % Normal . [facility] Comment on above: Performed By: #### E SR, CRP #### [facility] [address] Hematocrit (Bld) [Volume fraction] 36.2 % Normal 34.0-46.4 [facility] Comment on above: Performed By: #### E SR, CRP #### [facility] [address] Hemoglobin (Bld) [Mass/Vol] 11.5 g/dL Low 11.8-15.4 [facility] Comment on above: Performed By: #### E SR, CRP #### [facility] [address] [place] [address] [place] Lymphocytes (Bld) [#/Vol] 0.9 10*3/uL Low 1.00-4.8 [facility] Comment on above: Performed By: #### E SR, CRP #### [address] Lymphocytes/100 WBC (Bld) 4.2 % Normal . [facility] Comment on above: Performed By: #### E SR, CRP #### [facility] [address] [place] [address] [place] MCH (RBC) [Entitic mass] 27.0 pg Normal 24.7-34.3 [facility] Comment on above: Performed By: #### E SR, CRP #### [facility] [address] [place] [address] [place] MCV (RBC) [Entitic vol] 85.2 fL Normal 80-100 [facility] Comment on above: Performed By: #### E SR, CRP #### [facility] [address] [place] [address] Mean Corpuscular HGB Conc 31.7 g/dL Low 32.0-35.0 [facility] Comment on above: Performed By: #### E SR, CRP #### [facility] [address] [place] [address] [place] Monocytes (Bld) [#/Vol] 1.0 10*3/uL High 0.0-0.8 [facility] Comment on above: Performed By: #### E SR, CRP #### [facility] [address] [id number] [place] Monocytes/100 WBC (Bld) 4.7 % Normal . [facility] Comment on above: Performed By: #### E SR, CRP #### [facility] [address] [place] [address] [place] Neutrophils (Bld) [#/Vol] 18.6 10*3/uL High 1.8-7.7 [facility] Comment on above: Performed By: #### E SR, CRP #### [facility] [address] Neutrophils/100 WBC (Bld) 90.4 % Normal . [facility] Comment on above: Performed By: #### E SR, CRP #### [facility] [address] NRBC% 0.1 /100{WBC} Normal 0-0.5 [facility] Comment on above: Performed By: #### E SR, CRP #### [facility] [address] [place] [address] [place] Platelet mean volume (Bld) [Entitic vol] 8.7 fL Normal 6.3-10.7 [facility] Comment on above: Performed By: #### E SR, CRP #### [facility] [address] [place] [address] [place] Platelets (Bld) [#/Vol] 282 10*3/uL Normal 150-450 [facility] Comment on above: Performed By: #### E SR, CRP #### [facility] [address] [place] [address] [place] RBC (Bld) [#/Vol] 4.25 10*6/uL Normal 3.60-5.00 [facility] Comment on above: Performed By: #### E SR, CRP #### [facility] [address] [place] [address] [place] WBC (Bld) [#/Vol] 20.6 10*3/uL High 3.8-11.6 [facility] Comment on above: Performed By: #### E SR, CRP #### [facility] [address] Erythrocyte Sedimentation Ra charisma 03-26-2023 ESR (Bld) [Velocity] 84 mm/h High 0-29 [facility] Comment on above: Result Comment: PERF ORMED BY: [place] [address] PATHOLOGIST AUTOMATION QA TESTER FREDY PRICE M.D. Performed By: #### C RP, ESR #### [address] Lactic Acidon 03-26-2023 Lactate [Moles/Vol] 1.8 mmol/L Normal 0.5-2.2 [facility] Comment on above: Result Comment: PERF ORMED BY: [place] [address] PATHOLOGIST AUTOMATION QA TESTER FREDY PRICE M.D. Performed By: #### E SR, CRP #### [address] OCC BLD IMMUNO SCREENon 03-16 OCCULT BLOOD Negative Normal NEGATIVE [facility] Comment on above: Performed By: #### S EDR #### [facility] [address] [place] [address] Dr. Virgil Purdy PROF 14(COMP METB)on 023 Albumin [Mass/Vol] 1.6 g/dL Critically low 3.4-5.0 [facility] Comment on above: Performed By: #### P T #### [facility] [address] [address] [address] Virgil Purdy Albumin/Globulin [Mass ratio] 0.4 {ratio} Normal [facility] Comment on above: Performed By: #### P T #### [facility] [address] [address] [address] Virgil Purdy ALP [Catalytic activity/Vol] 76 U/L Normal 46-116 [facility] Comment on above: Performed By: #### P T #### [facility] [address] [place] [address] Dr. Virgil Purdy ALT [Catalytic activity/Vol] 14 U/L Normal 14-59 [facility] Comment on above: Performed By: #### P T #### [facility] [address] [place] [address] Dr. Virgil Purdy Anion gap [Moles/Vol] 12.6 mmol/L Normal [facility] Comment on above: Performed By: #### P T #### [facility] [address] [place] [address] Dr. Virgil Purdy AST [Catalytic activity/Vol] 20 U/L Normal 15-37 [facility] Comment on above: Performed By: #### P T #### [facility] [address] [place] [address] Dr. Virgil Purdy Bilirubin [Mass/Vol] 0.4 mg/dL Normal 0.2-1.0 [facility] Comment on above: Performed By: #### P T #### [facility] [address] [place] [address] Dr. Virgil Purdy Calcium [Mass/Vol] 8.1 mg/dL Critically low 8.5-10.1 [facility] Comment on above: Performed By: #### P T #### [facility] [address] [place] [address] Dr. Virgil Purdy Chloride [Moles/Vol] 105 mmol/L Normal 98-107 [facility] Comment on above: Performed By: #### P T #### [facility] [address] [place] [address] Dr. Virgil Purdy CO2 [Moles/Vol] 22.9 mmol/L Normal 21.0-32.0 [facility] Comment on above: Performed By: #### P T #### [facility] [address] [place] [address] Dr. Virgil Purdy Creatinine [Mass/Vol] 1.14 mg/dL Critically high 0.55-1.02 [facility] Comment on above: Performed By: #### P T #### [facility] [address] [place] [address] Dr. Virgil Purdy EGFR-AF CAMEROONIAN 60 mL/min/1.73m2 Normal >=60 [facility] Comment on above: Performed By: #### P T #### [facility] [address] [address] [address] Virgil Purdy EGFR-NON AF CAMEROONIAN 49 mL/min/1.73m2 Critically low >=60 [facility] Comment on above: Performed By: #### P T #### [facility] [address] [address] [address] Virgil Purdy Globulin (S) [Mass/Vol] 4.1 g/dL Normal [facility] Comment on above: Performed By: #### P T #### [facility] [address] [address] [address] Virgil Purdy Glucose [Mass/Vol] 112 mg/dL Critically high 74-106 [facility] Comment on above: Performed By: #### P T #### [facility] [address] [address] [address] Virgil Purdy Potassium [Moles/Vol] 3.5 mmol/L Normal 3.5-5.1 [facility] Comment on above: Performed By: #### P T #### [facility] [address] [address] [address] Virgil Purdy Protein [Mass/Vol] 5.7 g/dL Critically low 6.4-8.2 [facility] Comment on above: Performed By: #### P T #### [facility] [address] [address] [address] Virgil Purdy Sodium [Moles/Vol] 137 mmol/L Normal 136-145 [facility] Comment on above: Performed By: #### P T #### [facility] [address] [address] [address] Virgil Purdy Urea nitrogen [Mass/Vol] 26.0 mg/dL Critically high 7.0-18.0 [facility] Comment on above: Performed By: #### P T #### [facility] [address] [address] [address] Virgil Purdy Urea nitrogen/Creatinine [Mass ratio] 22.8 mg/mg Normal [facility] Comment on above: Performed By: #### P T #### [facility] [address] [place] [address] Dr. Virgil Purdy PTT HEPARIN MONITORon 2022 aPTT Coag (Bld) [Time] 40.4 s Normal 39.5-54.2 [facility] Comment on above: Performed By: #### S EDR #### [facility] [address] [place] [address] Dr. Virgil Purdy aPTT Coag (Bld) [Time] 37.9 s Critically low 39.5-54.2 [facility] Comment on above: Performed By: #### P T #### [facility] [address] [place] [address] Dr. Virgil Purdy SED RATE WESTERGRENon 2022 SED RATE 103 mm/hr Critically high <=30 [facility] Comment on above: Performed By: #### S EDR #### [facility] [address] [place] [address] Dr. Virgil Purdy CBC AUTO DIFFon 03-25-2023 BASO # 0.1 103/ul Normal 0.0-0.1 [facility] Comment on above: Performed By: #### C BC #### [facility] [address] [place] [address] Dr. Virgil Purdy Basophils/100 WBC (Bld) 0.3 % Normal 0.2-2.0 [facility] Comment on above: Performed By: #### C BC #### [facility] [address] [place] [address] Dr. Virgil Purdy EO # 0.0 103/ul Normal 0.0-0.7 [facility] Comment on above: Performed By: #### C BC #### [facility] [address] [place] [address] Dr. Virgil Purdy Eosinophils/100 WBC (Bld) 0.1 % Critically low 0.9-7.0 [facility] Comment on above: Performed By: #### C BC #### [facility] [address] [place] [address] Dr. Virgil Purdy Erythrocyte distribution width (RBC) [Ratio] 14.1 % Normal 11.0-15.0 [facility] Comment on above: Performed By: #### C BC #### [facility] [address] [place] [address] Dr. Virgil Purdy Hematocrit (Bld) [Volume fraction] 35.4 % Critically low 36.0-48.0 [facility] Comment on above: Performed By: #### C BC #### [facility] [address] [place] [address] Dr. Virgil Purdy Hemoglobin (Bld) [Mass/Vol] 11.5 g/dL Critically low 12.0-16.0 [facility] Comment on above: Performed By: #### C BC #### [facility] [address] [place] [address] Dr. Virgil Purdy IG # 0.14 10e3/ul Critically high 0.00-0.[address] [facility] Comment on above: Performed By: #### C BC #### [facility] [address] [place] [address] Dr. Virgil Purdy IG % 0.7 % Critically high 0.0-0.5 [facility] Comment on above: Performed By: #### C BC #### [facility] [address] [place] [address] Dr. Virgil Purdy LYMPH # 0.6 103/ul Critically low 1.2-3.8 [facility] Comment on above: Performed By: #### C BC #### [facility] [address] [place] [address] Dr. Virgil Purdy Lymphocytes/100 WBC (Bld) 3.2 % Critically low 20.5-60.0 [facility] Comment on above: Performed By: #### C BC #### [facility] [address] [place] [address] Dr. Virgil Purdy MANUAL DIFF REQ NO Normal [facility] Comment on above: Performed By: #### C BC #### [facility] [address] [address] [address] Virgil Purdy MCH (RBC) [Entitic mass] 28.3 pg Normal 26.7-34.0 [facility] Comment on above: Performed By: #### C BC #### [facility] [address] [place] [address] Dr. Virgil Purdy MCHC (RBC) [Mass/Vol] 32.5 g/dL Normal 29.9-35.2 [facility] Comment on above: Performed By: #### C BC #### [facility] [address] [place] [address] Dr. Virgil Purdy MCV (RBC) [Entitic vol] 87.2 fL Normal 81.0-99.0 [facility] Comment on above: Performed By: #### C BC #### [facility] [address] [place] [address] Dr. Virgil Purdy MONO # 1.2 103/ul Critically high 0.3-0.8 [facility] Comment on above: Performed By: #### C BC #### [facility] [address] [place] [address] Dr. Virgil Purdy Monocytes/100 WBC (Bld) 6.3 % Normal 1.7-12.0 [facility] Comment on above: Performed By: #### C BC #### [facility] [address] [place] [address] Dr. Virgil Purdy NEUT # 17.5 103/ul Critically high 1.4-6.5 [facility] Comment on above: Performed By: #### C BC #### [facility] [address] [place] [address] Dr. Virgil Purdy Neutrophils/100 WBC (Bld) 89.4 % Critically high 43.0-75.0 [facility] Comment on above: Performed By: #### C BC #### [facility] [address] [place] [address] Dr. Virgil Purdy Platelet mean volume (Bld) [Entitic vol] 11.5 fL Normal 9.5-13.5 [facility] Comment on above: Performed By: #### C BC #### [facility] [address] [place] [address] Dr. Virgil Purdy PLT 224 103/ul Normal 150-450 [facility] Comment on above: Performed By: #### C BC #### [facility] [address] [place] [address] Dr. Virgil Purdy RBC 4.06 106/ul Critically low 4.20-5.40 [facility] Comment on above: Performed By: #### C BC #### [facility] [address] [place] [address] Dr. Virgil Purdy WBC 19.6 103/ul Critically high 4.0-11.0 [facility] Comment on above: Performed By: #### C BC #### [facility] [address] [place] [address] Dr. Virgil Purdy CBC W MANUAL DIFFon 03-25-20 23 ATYPICAL LYMPH # Normal [facility] Comment on above: Performed By: #### C BCMAN #### [facility] [address] [place] [address] Dr. Virgil Purdy ATYPICAL LYMPH % Normal [facility] Comment on above: Performed By: #### C BCMAN #### [facility] [address] [place] [address] Dr. Virgil Purdy BAND # Normal 0.0-0.3 [facility] Comment on above: Performed By: #### C BCMAN #### [facility] [address] [place] [address] Dr. Virgil Purdy BAND % Normal 0-5 [facility] Comment on above: Performed By: #### C BCMAN #### [facility] [address] [place] [address] Dr. Virgil Purdy BASOM # 0.00 103/ul Normal 0.00-0.10 [facility] Comment on above: Performed By: #### C BCMAN #### [facility] [address] [place] [address] Dr. Virgil Purdy BASOM % 0.0 % Critically low 0.2-2.0 [facility] Comment on above: Performed By: #### C BCMAN #### [facility] [address] [address] [address] Virgil Purdy BLAST # Normal [facility] Comment on above: Performed By: #### C BCMAN #### [facility] [address] [place] [address] Dr. Virgil Purdy BLAST % Normal [facility] Comment on above: Performed By: #### C BCMAN #### [facility] [address] [address] [address] Virgil Purdy CORRECTED WBC Normal 4.0-11.0 [facility] Comment on above: Performed By: #### C BCMAN #### [facility] [address] [place] [address] Dr. Virgil Purdy EOS # 0.00 103/ul Normal 0.00-0.70 [facility] Comment on above: Performed By: #### C BCDARIUS #### [facility] [address] [place] [address] Dr. Virgil Purdy EOS% 0.0 % Critically low 0.9-7.0 [facility] Comment on above: Performed By: #### C BCDARIUS #### [facility] [address] [place] [address] Dr. Virgil Purdy HCT 33.7 % Critically low 36.0-48.0 [facility] Comment on above: Performed By: #### C BCDARIUS #### [facility] [address] [place] [address] Dr. Virgil Purdy HGB 11.0 g/dl Critically low 12.0-16.0 [facility] Comment on above: Performed By: #### C BCMAN #### [facility] [address] [place] [address] Dr. Virgil Purdy LYMPHM # 1.10 103/ul Critically low 1.20-3.80 [facility] Comment on above: Performed By: #### C BCMAN #### [facility] [address] [place] [address] Dr. Virgil Purdy LYMPHM% 6.0 % Critically low 20.5-60.0 [facility] Comment on above: Performed By: #### C GERSON #### [facility] [address] [place] [address] Dr. Virgil Purdy MCH 27.8 pg Normal 26.7-34.0 [facility] Comment on above: Performed By: #### C GERSON #### [facility] [address] [place] [address] Dr. Virgil Purdy MCHC 32.6 g/dl Normal 29.9-35.2 [facility] Comment on above: Performed By: #### C GERSON #### [facility] [address] [place] [address] Dr. Virgil Purdy MCV 85.1 fL Normal 81.0-99.0 [facility] Comment on above: Performed By: #### C GERSON #### [facility] [address] [place] [address] Dr. Virgil Purdy METAMYELOCYTE # Normal [facility] Comment on above: Performed By: #### C GERSON #### [facility] [address] [place] [address] Dr. Virgil Purdy METAMYELOCYTE % Normal [facility] Comment on above: Performed By: #### C GERSON #### [facility] [address] [place] [address] Dr. Virgil Purdy MONOM# 0.73 103/ul Normal 0.30-0.80 [facility] Comment on above: Performed By: #### C GERSON #### [facility] [address] [place] [address] Dr. Virgil Purdy MONOM% 4.0 % Normal 1.7-12.0 [facility] Comment on above: Performed By: #### C GERSON #### [facility] [address] [place] [address] Dr. Virgil Purdy MPV 11.1 fL Normal 9.5-13.5 [facility] Comment on above: Performed By: #### C GERSON #### [facility] [address] [place] [address] Dr. Virgil Purdy MYELOCYTE # Normal The [facility] Comment on above: Performed By: #### C GERSON #### [facility] [address] [address] [address] Virgil Purdy MYELOCYTE % Normal [facility] Comment on above: Performed By: #### C GERSON #### [facility] [address] [address] [address] Virgil Purdy NRBC Normal [facility] Comment on above: Performed By: #### C GESRON #### [facility] [address] [address] [address] Virgil Purdy PLT 230 103/ul Normal 150-450 [facility] Comment on above: Performed By: #### C GERSON #### [facility] [address] [address] [address] Virgil Purdy RBC 3.96 106/ul Critically low 4.20-5.40 [facility] Comment on above: Performed By: #### C GERSON #### [facility] [address] [address] [address] Virgil Purdy RDW 14.0 % Normal 11.0-15.0 [facility] Comment on above: Performed By: #### C GERSON #### [facility] [address] [place] [address] Dr. Virgil Purdy SEG # 16.47 103/ul Critically high 1.40-6.[address] [facility] Comment on above: Performed By: #### C GERSON #### [facility] [address] [address] [address] Virgil Purdy SEG % 90.0 % Critically high 43.0-75.0 [facility] Comment on above: Result Comment: vacu oles seen Performed By: #### C GERSON #### [facility] [address] [place] [address] Dr. Virgil Purdy WBC 18.3 103/ul Critically high 4.0-11.0 [facility] Comment on above: Performed By: #### C GERSON #### [facility] [address] [place] [address] Dr. Virgil Purdy CRPon 03-25-2023 CRP [Mass/Vol] mg/L Critically high <=1.0 [facility] Comment on above: Performed By: #### S EDR #### [facility] [address] [address] [address] Virgil Purdy CULTURE BLOODon 03-25-2023 Microscopic examination of blood, culture Culture Observations: NO GROWTH AT 5 DAYS. Normal [facility] Comment on above: Performed By: #### L ACT #### [facility] [address] [address] [address] Virgil Purdy Microscopic examination of blood, culture Culture Observations: NO GROWTH AT 5 DAYS. [facility] Comment on above: Performed By: #### L ACT #### [facility] [address] [address] [address] Virgil Purdy ECHOCARDIO M/2D COMPLETEon 0 03-25-2023 ECHOCARDIO M/2D COMPLETE Patient Name Site Name LAURA TYLER [facility] Account No Medical Record Number Age Sex Date Time [id number] [facility]:[id number] F 03/25/2023 11:25 At the Request [...] Manuel M.D. on 03/25/2023 at 18:19 Normal [facility] PROF 14(COMP METB)on 023 Albumin [Mass/Vol] 1.9 g/dL Critically low 3.4-5.0 [facility] Comment on above: Performed By: #### S EDR #### [facility] [address] [address] [address] Virgil Purdy Albumin/Globulin [Mass ratio] 0.4 {ratio} Normal [facility] Comment on above: Performed By: #### S EDR #### [facility] [address] [place] [address] Dr. Virgil Purdy ALP [Catalytic activity/Vol] 77 U/L Normal 46-116 [facility] Comment on above: Performed By: #### S EDR #### [facility] [address] [address] [address] Virgil Purdy ALT [Catalytic activity/Vol] 14 U/L Normal 14-59 [facility] Comment on above: Performed By: #### S EDR #### [facility] [address] [address] [address] Virgil Purdy Anion gap [Moles/Vol] 13.0 mmol/L Normal [facility] Comment on above: Performed By: #### S EDR #### [facility] [address] [address] [address] Virgil Purdy AST [Catalytic activity/Vol] 11 U/L Critically low 15-37 [facility] Comment on above: Performed By: #### S EDR #### [facility] [address] [address] [address] Virgil Purdy Bilirubin [Mass/Vol] 0.5 mg/dL Normal 0.2-1.0 [facility] Comment on above: Performed By: #### S EDR #### [facility] [address] [address] [address] Virgil Purdy Calcium [Mass/Vol] 8.7 mg/dL Normal 8.5-10.1 [facility] Comment on above: Performed By: #### S EDR #### [facility] [address] [address] [address] Virgil Purdy Chloride [Moles/Vol] 100 mmol/L Normal 98-107 [facility] Comment on above: Performed By: #### S EDR #### [facility] [address] [address] [address] Virgil Purdy CO2 [Moles/Vol] 24.3 mmol/L Normal 21.0-32.0 [facility] Comment on above: Performed By: #### S EDR #### [facility] [address] [address] [address] Virgil Purdy Creatinine [Mass/Vol] 1.18 mg/dL Critically high 0.55-1.02 [facility] Comment on above: Performed By: #### S EDR #### [facility] [address] [address] [address] Virgil Purdy EGFR-AF CAMEROONIAN 58 mL/min/1.73m2 Critically low >=60 [facility] Comment on above: Performed By: #### S EDR #### [facility] [address] [address] [address] Virgil Purdy EGFR-NON AF CAMEROONIAN 48 mL/min/1.73m2 Critically low >=60 [facility] Comment on above: Performed By: #### S EDR #### [facility] [address] [address] [address] Virgil Purdy Globulin (S) [Mass/Vol] 4.3 g/dL Normal [facility] Comment on above: Performed By: #### S EDR #### [facility] [address] [address] [address] Virgil Purdy Glucose [Mass/Vol] 92 mg/dL Normal 74-106 [facility] Comment on above: Performed By: #### S EDR #### [facility] [address] [address] [address] Virgil Puryd Potassium [Moles/Vol] 3.3 mmol/L Critically low 3.5-5.1 [facility] Comment on above: Performed By: #### S EDR #### [facility] [address] [place] [address] Dr. Virgil Purdy Protein [Mass/Vol] 6.2 g/dL Critically low 6.4-8.2 [facility] Comment on above: Performed By: #### S EDR #### [facility] [address] [place] [address] Dr. Virgil Purdy Sodium [Moles/Vol] 134 mmol/L Critically low 136-145 [facility] Comment on above: Performed By: #### S EDR #### [facility] [address] [place] [address] Dr. Virgil Purdy Urea nitrogen [Mass/Vol] 25.0 mg/dL Critically high 7.0-18.0 [facility] Comment on above: Performed By: #### S EDR #### [facility] [address] [place] [address] Dr. Virgil Purdy Urea nitrogen/Creatinine [Mass ratio] 21.2 mg/mg Normal [facility] Comment on above: Performed By: #### S EDR #### [facility] [address] [place] [address] Dr. Virgil Purdy PROTIMEon 03-25-2023 INR Coag (PPP) [Relative time] 0.96 {INR} Normal [facility] Comment on above: Performed By: #### P T #### [facility] [address] [place] [address] Dr. Virgil Purdy INR GUIDELINES SEE BELOW Normal [facility] Comment on above: Result Comment: CORAZON RED INR: 2.0 - 3.0 CONDITIONS NOT LISTED BELOW 2.5 - 3.5 FOR PROSTHETIC HEART VALVE REPLACEMENT 2.5 - 3.5 RECURRENT THROMBOSIS Performed By: #### P T #### [facility] [address] [place] [address] Dr. Virgil Purdy PT Coag (PPP) [Time] 10.2 s Normal 9.0-11.6 [facility] Comment on above: Performed By: #### P T #### [facility] [address] [place] [address] Dr. Virgil Purdy PTT HEPARIN MONITORon 2022 aPTT Coag (Bld) [Time] 38.5 s Critically low 39.5-54.2 [facility] Comment on above: Performed By: #### P T #### [facility] [address] [place] [address] Dr. Virgil Purdy aPTT Coag (Bld) [Time] 41.3 s Normal 39.5-54.2 [facility] Comment on above: Performed By: #### L ACT #### [facility] [address] [place] [address] Dr. Virgil Purdy aPTT Coag (Bld) [Time] 41.0 s Normal 39.5-54.2 [facility] Comment on above: Performed By: #### P TTHEP #### [facility] [address] [place] [address] Dr. Virgil Purdy SED RATE WESTERGRENon 2022 SED RATE 82 mm/hr Critically high <=30 [facility] Comment on above: Performed By: #### S EDR #### [facility] [address] [place] [address] Dr. Virgil Purdy US EXT NON VASC [...] AC LOVING Date: 2023-03-25 10:20 Normal [facility] CBC W MANUAL DIFFon 03-24-20 23 ATYPICAL LYMPH # Normal [facility] Comment on above: Performed By: #### S EDR #### [facility] [address] [address] [address] Virgil Purdy ATYPICAL LYMPH % Normal [facility] Comment on above: Performed By: #### S EDR #### [facility] [address] [place] [address] Dr. Virgil Purdy BAND # 1.6 103/ul Critically high 0.0-0.3 [facility] Comment on above: Performed By: #### S EDR #### [facility] [address] [place] [address] Dr. Virgil Purdy BAND % 8 % Critically high 0-5 [facility] Comment on above: Performed By: #### S EDR #### [facility] [address] [place] [address] Dr. Virgil Purdy BASOM # 0.00 103/ul Normal 0.00-0.10 [facility] Comment on above: Performed By: #### S EDR #### [facility] [address] [place] [address] Dr. Virgil Purdy BASOM % 0.0 % Critically low 0.2-2.0 [facility] Comment on above: Performed By: #### S EDR #### [facility] [address] [place] [address] Dr. Virgil Purdy BLAST # Normal [facility] Comment on above: Performed By: #### S EDR #### [facility] [address] [place] [address] Dr. Virgil Purdy BLAST % Normal [facility] Comment on above: Performed By: #### S EDR #### [facility] [address] [place] [address] Dr. Virgil Purdy CORRECTED WBC Normal 4.0-11.0 [facility] Comment on above: Performed By: #### S EDR #### [facility] [address] [place] [address] Dr. Virgil Purdy EOS # 0.19 103/ul Normal 0.00-0.70 [facility] Comment on above: Performed By: #### S EDR #### [facility] [address] [place] [address] Dr. Virgil Purdy EOS% 1.0 % Normal 0.9-7.0 [facility] Comment on above: Performed By: #### S EDR #### [facility] [address] [place] [address] Dr. Virgil Purdy HCT 43.4 % Normal 36.0-48.0 [facility] Comment on above: Performed By: #### S EDR #### [facility] [address] [place] [address] Dr. Virgil Purdy HGB 14.5 g/dl Normal 12.0-16.0 [facility] Comment on above: Performed By: #### S EDR #### [facility] [address] [place] [address] Dr. Virgil Purdy LYMPHM # 1.36 103/ul Normal 1.20-3.80 [facility] Comment on above: Performed By: #### S EDR #### [facility] [address] [place] [address] Dr. Virgil Purdy LYMPHM% 7.0 % Critically low 20.5-60.0 [facility] Comment on above: Performed By: #### S EDR #### [facility] [address] [place] [address] Dr. Virgil Purdy MCH 28.0 pg Normal 26.7-34.0 [facility] Comment on above: Performed By: #### S EDR #### [facility] [address] [place] [address] Dr. Virgil Purdy MCHC 33.4 g/dl Normal 29.9-35.2 [facility] Comment on above: Performed By: #### S EDR #### [facility] [address] [place] [address] Dr. Virgil Purdy MCV 83.9 fL Normal 81.0-99.0 [facility] Comment on above: Performed By: #### S EDR #### [facility] [address] [place] [address] Dr. Virgil Purdy METAMYELOCYTE # Normal [facility] Comment on above: Performed By: #### S EDR #### [facility] [address] [place] [address] Dr. Virgil Purdy METAMYELOCYTE % Normal [facility] Comment on above: Performed By: #### S EDR #### [facility] [address] [place] [address] Dr. Virgil Purdy MONOM# 0.58 103/ul Normal 0.30-0.80 [facility] Comment on above: Performed By: #### S EDR #### [facility] [address] [place] [address] Dr. Virgil Purdy MONOM% 3.0 % Normal 1.7-12.0 [facility] Comment on above: Performed By: #### S EDR #### [facility] [address] [place] [address] Dr. Virgil Purdy MPV 11.1 fL Normal 9.5-13.5 [facility] Comment on above: Performed By: #### S EDR #### [facility] [address] [place] [address] Dr. Virgil Purdy MYELOCYTE # Normal [facility] Comment on above: Performed By: #### S EDR #### [facility] [address] [place] [address] Dr. Virgil Purdy MYELOCYTE % Normal [facility] Comment on above: Performed By: #### S EDR #### [facility] [address] [place] [address] Dr. Virgil Purdy NRBC Normal [facility] Comment on above: Performed By: #### S EDR #### [facility] [address] [place] [address] Dr. Virgil Purdy PLT 238 103/ul Normal 150-450 [facility] Comment on above: Performed By: #### S EDR #### [facility] [address] [place] [address] Dr. Virgil Purdy RBC 5.17 106/ul Normal 4.20-5.40 [facility] Comment on above: Performed By: #### S EDR #### [facility] [address] [address] [address] Virgil Purdy RDW 13.7 % Normal 11.0-15.0 [facility] Comment on above: Performed By: #### S EDR #### [facility] [address] [address] [address] Virgil Purdy SEG # 15.71 103/ul Critically high 1.40-6.[address] [facility] Comment on above: Performed By: #### S EDR #### [facility] [address] [address] [address] Virgil Purdy SEG % 81.0 % Critically high 43.0-75.0 [facility] Comment on above: Performed By: #### S EDR #### [facility] [address] [place] [address] Dr. Virgil Purdy WBC 19.4 103/ul Critically high 4.0-11.0 [facility] Comment on above: Performed By: #### S EDR #### [facility] [address] [place] [address] Dr. Virgil Purdy CRPon 03-24-2023 CRP 53.6 mg/dL Critically high <=1.0 [facility] Comment on above: Performed By: #### B MP, URIC, CRP #### [facility] [address] [address] [address] Virgil Purdy CULTURE BLOODon 03-24-2023 Microscopic examination of blood, culture Culture Observations: NO GROWTH AT 5 DAYS. Normal [facility] Comment on above: Performed By: #### L ACT #### [facility] [address] [address] [address] Virgil Purdy Microscopic examination of blood, culture Culture Observations: NO GROWTH AT 5 DAYS. Normal [facility] Comment on above: Performed By: #### L ACT #### [facility] [address] [address] [address] Virgil Purdy LACTATE/LACTIC ACIDon 2022 Lactate [Moles/Vol] 1.4 mmol/L Normal 0.4-2.0 [facility] Comment on above: Performed By: #### L ACT #### [facility] [address] [place], [place] [address] Dr. Virgil Purdy MRI ARM LT WO [...] by: LEE RODRÍGUEZ Date: 2023-03-24 17:45 Normal [facility] PROF CHEM 8 (BAS METB)on Anion gap [Moles/Vol] 16.0 mmol/L Normal [facility] Comment on above: Performed By: #### B MP, URIC, CRP #### [facility] [address] [place], [place] [address] Dr. Virgil Purdy Calcium [Mass/Vol] 10.4 mg/dL Critically high 8.5-10.1 [facility] Comment on above: Performed By: #### B MP, URIC, CRP #### [facility] [address] [place], [place] [address] Dr. Virgil Purdy Chloride [Moles/Vol] 97 mmol/L Critically low 98-107 [facility] Comment on above: Performed By: #### B MP, URIC, CRP #### [facility] [address] [address] [address] Virgil Purdy CO2 [Moles/Vol] 26.7 mmol/L Normal 21.0-32.0 [facility] Comment on above: Performed By: #### B MP, URIC, CRP #### [facility] [address] [address] [address] Virgil Purdy Creatinine [Mass/Vol] 1.36 mg/dL Critically high 0.55-1.02 [facility] Comment on above: Performed By: #### B MP, URIC, CRP #### [facility] [address] [place] [address] Dr. Virgil Purdy EGFR-AF CAMEROONIAN 49 mL/min/1.73m2 Critically low >=60 [facility] Comment on above: Performed By: #### B MP, URIC, CRP #### [facility] [address] [place] [address] Dr. Virgil Purdy EGFR-NON AF CAMEROONIAN 40 mL/min/1.73m2 Critically low >=60 [facility] Comment on above: Performed By: #### B MP, URIC, CRP #### [facility] [address] [place] [address] Dr. Virgil Purdy Glucose [Mass/Vol] 97 mg/dL Normal 74-106 [facility] Comment on above: Performed By: #### B MP, URIC, CRP #### [facility] [address] [place] [address] Dr. Virgil Purdy Potassium [Moles/Vol] 3.7 mmol/L Normal 3.5-5.1 [facility] Comment on above: Performed By: #### B MP, URIC, CRP #### [facility] [address] [place] [address] Dr. Virgil Purdy Sodium [Moles/Vol] 136 mmol/L Normal 136-145 [facility] Comment on above: Performed By: #### B MP, URIC, CRP #### [facility] [address] [address] [address] Virgil Purdy Urea nitrogen [Mass/Vol] 28.0 mg/dL Critically high 7.0-18.0 [facility] Comment on above: Performed By: #### B MP, URIC, CRP #### [facility] [address] [address] [address] Virgil Purdy Urea nitrogen/Creatinine [Mass ratio] 20.6 mg/mg Normal [facility] Comment on above: Performed By: #### B MP, URIC, CRP #### [facility] [address] [address] [address] Virgil Purdy PTT HEPARIN MONITORon 2022 aPTT Coag (Bld) [Time] 36.0 s Critically low 39.5-54.2 [facility] Comment on above: Performed By: #### P T #### [facility] [address] [place] [address] Dr. Virgil Purdy SED RATE WESTERGRENon 2022 SED RATE 78 mm/hr Critically high <=30 [facility] Comment on above: Performed By: #### S EDR #### [facility] [address] [address] [address] Virgil Purdy URIC ACID SERUMon 03-24-2023 Urate [Mass/Vol] 4.3 mg/dL Normal 2.6-6.0 [facility] Comment on above: Performed By: #### B MP, URIC, CRP #### [facility] [address] [place] [address] Dr. Virgil Purdy XR ANKLE HILLARY MIN [...] AC LOVING Date: 2022-08-22 10:41 Normal [facility] CBC AUTO DIFFon 08-19-2022 BASO # 0.1 103/ul Normal 0.0-0.1 [facility] Comment on above: Performed By: #### P T #### [facility] [address] [address] [address] Virgil Purdy Basophils/100 WBC (Bld) 1.1 % Normal 0.2-2.0 [facility] Comment on above: Performed By: #### P T #### [facility] [address] [place] [address] Dr. Virgil Purdy EO # 0.3 103/ul Normal 0.0-0.7 [facility] Comment on above: Performed By: #### P T #### [facility] [address] [address] [address] Virgil Purdy Eosinophils/100 WBC (Bld) 5.2 % Normal 0.9-7.0 [facility] Comment on above: Performed By: #### P T #### [facility] [address] [address] [address] Virgil Purdy Erythrocyte distribution width (RBC) [Ratio] 13.3 % Normal 11.0-15.0 [facility] Comment on above: Performed By: #### P T #### [facility] [address] [address] [address] Virgil Purdy Hematocrit (Bld) [Volume fraction] 44.0 % Normal 36.0-48.0 [facility] Comment on above: Performed By: #### P T #### [facility] [address] [place] [address] Dr. Virgil Purdy Hemoglobin (Bld) [Mass/Vol] 13.7 g/dL Normal 12.0-16.0 [facility] Comment on above: Performed By: #### P T #### [facility] [address] [place] [address] Dr. Virgil Purdy IG # 0.01 10e3/ul Normal 0.00-0.03 [facility] Comment on above: Performed By: #### P T #### [facility] [address] [place] [address] Dr. Virgil Purdy IG % 0.2 % Normal 0.0-0.5 [facility] Comment on above: Performed By: #### P T #### [facility] [address] [place] [address] Dr. Virgil Purdy LYMPH # 1.5 103/ul Normal 1.2-3.8 [facility] Comment on above: Performed By: #### P T #### [facility] [address] [place] [address] Dr. Virgil uPrdy Lymphocytes/100 WBC (Bld) 26.8 % Normal 20.5-60.0 [facility] Comment on above: Performed By: #### P T #### [facility] [address] [place] [address] Dr. Virgil Purdy MANUAL DIFF REQ NO Normal [facility] Comment on above: Performed By: #### P T #### [facility] [address] [place] [address] Dr. Virgil Purdy MCH (RBC) [Entitic mass] 28.2 pg Normal 26.7-34.0 [facility] Comment on above: Performed By: #### P T #### [facility] [address] [place] [address] Dr. Virgil Purdy MCHC (RBC) [Mass/Vol] 31.1 g/dL Normal 29.9-35.2 [facility] Comment on above: Performed By: #### P T #### [facility] [address] [place] [address] Dr. Virgil Purdy MCV (RBC) [Entitic vol] 90.7 fL Normal 81.0-99.0 [facility] Comment on above: Performed By: #### P T #### [facility] [address] [place] [address] Dr. Virgil Purdy MONO # 0.5 103/ul Normal 0.3-0.8 [facility] Comment on above: Performed By: #### P T #### [facility] [address] [place] [address] Dr. Virgil Purdy Monocytes/100 WBC (Bld) 8.4 % Normal 1.7-12.0 [facility] Comment on above: Performed By: #### P T #### [facility] [address] [place] [address] Dr. Virgil Purdy NEUT # 3.3 103/ul Normal 1.4-6.5 [facility] Comment on above: Performed By: #### P T #### [facility] [address] [place] [address] Dr. iVrgil Purdy Neutrophils/100 WBC (Bld) 58.3 % Normal 43.0-75.0 [facility] Comment on above: Performed By: #### P T #### [facility] [address] [place] [address] Dr. Virgil Purdy Platelet mean volume (Bld) [Entitic vol] 11.4 fL Normal 9.5-13.5 [facility] Comment on above: Performed By: #### P T #### [facility] [address] [place] [address] Dr. Virgil Purdy PLT 263 103/ul Normal 150-450 [facility] Comment on above: Performed By: #### P T #### [facility] [address] [place] [address] Dr. Virgil Purdy RBC 4.85 106/ul Normal 4.20-5.40 [facility] Comment on above: Performed By: #### P T #### [facility] [address] [place] [address] Dr. Virgil Purdy WBC 5.6 103/ul Normal 4.0-11.0 [facility] Comment on above: Performed By: #### P T #### [facility] [address] [place] [address] Dr. Virgil Purdy GLYCOHEMOGLOBIN A1Con 2021 ADA RECOMMENDATION SEE BELOW Normal [facility] Comment on above: Result Comment: ADA RECOMMENDED LIMIT 4.0 - 6.0 ADA THERAPEUTIC TARGET < 7.0 ACTION SUGGESTED > 7.0 Performed By: #### A 1C #### [facility] [address] [place] [address] Dr. Virgil Purdy Glucose [Mass/Vol] 123 mg/dL Normal [facility] Comment on above: Performed By: #### A 1C #### [facility] [address] [address] [address] Virgil Purdy HbA1c (Bld) [Mass fraction] 5.9 % Normal 4.5-6.2 [facility] Comment on above: Performed By: #### A 1C #### [facility] [address] [place] [address] Dr. Virgil Purdy LIPID PROFILEon 08-19-2022 CHOL-HDL RATIO NORM SEE BELOW Normal [facility] Comment on above: Result Comment: 3.3 - 4.4 LOW RISK 4.4 - 7.1 AVERAGE RISK 7.1 - 11.0 MODERATE RISK >11.0 HIGH RISK Performed By: #### P T #### [facility] [address] [place] [address] Dr. Virgil Purdy Cholesterol [Mass/Vol] 240 mg/dL Critically high <=200 [facility] Comment on above: Performed By: #### P T #### [facility] [address] [place] [address] Dr. Virgil Purdy Cholesterol in HDL [Mass/Vol] 70 mg/dL Critically high 40-60 [facility] Comment on above: Performed By: #### P T #### [facility] [address] [place] [address] Dr. Virgil Purdy Cholesterol in LDL [Mass/Vol] 150.2 mg/dL Normal [facility] Comment on above: Performed By: #### P T #### [facility] [address] [place] [address] Dr. Virgil Purdy Cholesterol.total/Ch olesterol in HDL [Mass ratio] 3.4 {ratio} Normal [facility] Comment on above: Performed By: #### P T #### [facility] [address] [address] [address] Virgil Purdy HDL NORMAL > or = 60 mg/dl - LOW CARDIOVASCULAR RISK <40 mg/dl - HIGH CARDIOVASCULAR RISK Normal [facility] Comment on above: Performed By: #### P T #### [facility] [address] [place] [address] Dr. Virgil Purdy LDL CALC NORMAL SEE BELOW Normal [facility] Comment on above: Result Comment: <100 mg/dl OPTIMAL 100 - 129 mg/dl NEAR OR ABOVE OPTIMAL 130 - 159 mg/dl BORDERLINE HIGH 160 - 189 mg/dl HIGH >190 mg/dl VERY HIGH Performed By: #### P T #### [facility] [address] [address] [address] Virgil Purdy Triglyceride [Mass/Vol] 99 mg/dL Normal <=150 [facility] Comment on above: Performed By: #### P T #### [facility] [address] [place] [address] Dr. Virgil Purdy VLDL CALC 19.8 mg/dL Normal [facility] Comment on above: Performed By: #### P T #### [facility] [address] [place] [address] Dr. Virgil Purdy LIVER PROFILEon 08-19-2022 Albumin [Mass/Vol] 3.8 g/dL Normal 3.4-5.0 [facility] Comment on above: Performed By: #### P T #### [facility] [address] [place] [address] Dr. Virgil Purdy Albumin/Globulin [Mass ratio] 1.1 {ratio} Normal [facility] Comment on above: Performed By: #### P T #### [facility] [address] [place] [address] Dr. Virgil Purdy ALP [Catalytic activity/Vol] 86 U/L Normal 46-116 [facility] Comment on above: Performed By: #### P T #### [facility] [address] [place] [address] Dr. Virgil Purdy ALT [Catalytic activity/Vol] 21 U/L Normal 14-59 [facility] Comment on above: Performed By: #### P T #### [facility] [address] [address] [address] Virgil Purdy AST [Catalytic activity/Vol] 20 U/L Normal 15-37 [facility] Comment on above: Performed By: #### P T #### [facility] [address] [address] [address] Virgil Purdy BILI, CONJUGATED 0.1 mg/dL Normal 0.0-0.2 [facility] Comment on above: Performed By: #### P T #### [facility] [address] [address] [address] Virgil Purdy Bilirubin [Mass/Vol] 0.2 mg/dL Normal 0.2-1.0 [facility] Comment on above: Performed By: #### P T #### [facility] [address] [place] [address] Dr. Virgil Purdy Globulin (S) [Mass/Vol] 3.5 g/dL Normal [facility] Comment on above: Performed By: #### P T #### [facility] [address] [place] [address] Dr. Virgil Purdy Protein [Mass/Vol] 7.3 g/dL Normal 6.4-8.2 [facility] Comment on above: Performed By: #### P T #### [facility] [address] [place] [address] Dr. Virgil Purdy PROF CHEM 8 (BAS METB)on Anion gap [Moles/Vol] 11.9 mmol/L Normal [facility] Comment on above: Performed By: #### P T #### [facility] [address] [place] [address] Dr. Virgil Purdy Calcium [Mass/Vol] 9.0 mg/dL Normal 8.5-10.1 [facility] Comment on above: Performed By: #### P T #### [facility] [address] [address] [address] Virgil Purdy Chloride [Moles/Vol] 105 mmol/L Normal 98-107 [facility] Comment on above: Performed By: #### P T #### [facility] [address] [address] [address] Virgil Purdy CO2 [Moles/Vol] 25.3 mmol/L Normal 21.0-32.0 [facility] Comment on above: Performed By: #### P T #### [facility] [address] [address] [address] Virgil Purdy Creatinine [Mass/Vol] 0.90 mg/dL Normal 0.55-1.02 [facility] Comment on above: Performed By: #### P T #### [facility] [address] [address] [address] Virgil Purdy EGFR-AF CAMEROONIAN >60 Normal >=60 [facility] Comment on above: Performed By: #### P T #### [facility] [address] [place] [address] Dr. Virgil Purdy EGFR-NON AF CAMEROONIAN >60 Normal >=60 [facility] Comment on above: Performed By: #### P T #### [facility] [address] [address] [address] Virgil Purdy Glucose [Mass/Vol] 93 mg/dL Normal 74-106 [facility] Comment on above: Performed By: #### P T #### [facility] [address] [address] [address] Virgil Purdy Potassium [Moles/Vol] 5.2 mmol/L Critically high 3.5-5.1 [facility] Comment on above: Performed By: #### P T #### [facility] [address] [address] [address] Virgil Purdy Sodium [Moles/Vol] 137 mmol/L Normal 136-145 [facility] Comment on above: Performed By: #### P T #### [facility] [address] [address] [address] Virgil Purdy Urea nitrogen [Mass/Vol] 16.0 mg/dL Normal 7.0-18.0 [facility] Comment on above: Performed By: #### P T #### [facility] [address] [address] [address] Virgil Purdy Urea nitrogen/Creatinine [Mass ratio] 17.8 mg/mg Normal [facility] Comment on above: Performed By: #### P T #### [facility] [address] [address] [address] Virgil Purdy TSHon 08-19-2022 TSH 14.874 uIU/mL Critically high 0.358-3.740 [facility] Comment on above: Performed By: #### P T #### [facility] [address] [address] [address] Virgil Purdy COVID Quick Testingon 2020 Result Negative [facility] Other Vital Signs Date Time Vital Sign Value Performing Clinician Facility 01-06-2025 10:38-0500 Body height 157.5 cm Fior Pinon DPM Work Phone: [facility] 01-06-2025 10:38-0500 Body mass index (BMI) [Ratio] 29.26 kg/m2 Fior Pinon DPM Work Phone: [facility] 01-06-2025 10:38-0500 Body weight 72.58 kg Fior Pinon DPM Work Phone: [facility] 04-10-2023 09:30-0400 Body height 157.48 cm Janny Concepcion Other [facility] Other 04-10-2023 09:30-0400 Body mass index (BMI) [Ratio] 28.16 kg/m2 Janny Concepcion Other [facility] Other 04-10-2023 09:30-0400 Body weight 69.85 kg Janny Concepcion Other [facility] Other 09-30-2021 15:15-0500 Body height 157.48 cm Harper Shin Other [facility] Other 09-30-2021 15:15-0500 Body mass index (BMI) [Ratio] 29.63 kg/m2 Harper Radhanty Other [facility] Other 09-30-2021 15:15-0500 Body temperature 96.2 [degF] Harper Radhanty Other [facility] Other 09-30-2021 15:15-0500 Body weight 73.48 kg Harper Radhanty Other [facility] Other 09-30-2021 15:15-0500 SaO2% (BldA) [Mass fraction] 97 % Harper Radhantlili Other [facility] Other Encounters Encounter Date Encounter Type Care Provider Facility Start: 05-29-2025 End: 05-29-2025 Emergency department patient visit NO PCP NO PCP [facility] Start: 02-03-2025 End: 02-03-2025 ambulatory FIOR PINON Not Available Start: 01-06-2025 End: 01-06-2025 Office outpatient new 45 minutes Fior Pinon DPM Work Phone: [facility] Comment on above: Posterior tibial ten dinitis of right lower extremity (Primary Dx); Stress fracture of left tibia, initial encounter; Acute right ankle pain; Instability of right ankle joint; Difficulty walking Start: 01-06-2025 End: 01-06-2025 ambulatory FIOR PINON Not Available Start: 07-24-2023 End: 07-24-2023 ambulatory Janny Concepcion Other [facility] Other Start: 07-24-2023 Postop follow up vis it related to original px [facility] Start: 05-06-2023 End: 05-06-2023 ambulatory Janny Concepcion Facility:[facility] Start: 05-01-2023 End: 05-01-2023 ambulatory Janny Concepcion Other [facility] Other Start: 05-01-2023 Postop follow up vis it related to original px Janny Concepcion [facility] Start: 04-17-2023 End: 04-17-2023 ambulatory JANNY CARLENE Facility:[facility] Start: 04-17-2023 Postop follow up vis it related to original px Janny Carlene [facility] Start: 04-10-2023 End: 04-10-2023 ambulatory Jannyheriberto Concepcion Other [facility] Other Start: 04-10-2023 Postop follow up vis it related to original px Janny Concepcion [facility] Start: 04-07-2023 End: 04-07-2023 ambulatory Janny Concepcion Facility:[facility] Start: 04-06-2023 End: 04-06-2023 ambulatory Janny Concepcion Facility:[facility] Start: 03-26-2023 End: 04-02-2023 Evaluation and management of inpatient John Jigar Facility:[facility] Start: 03-26-2023 End: 03-26-2023 Evaluation and management of inpatient DR AMILCAR SMITH . Facility:[facility] Start: 08-22-2022 End: 08-23-[address] HUBER DEWEY Facility:[facility] Start: 08-21-2022 Encounter for genera l adult medical examination without abnormal findings DR HUBER DEWEY [facility] Start: 08-19-2022 End: 08-20-[address] HUBER DEWEY Facility:[facility] Start: 08-19-2022 End: 08-20-2022 Encounter for general adult medical examination without abnormal findings DR HUBER DEWEY Facility:[facility] Start: 09-30-2021 End: 09-30-2021 ambulatory Harper Shin Other [facility] Other Start: 09-30-2021 Office outpatient vi sit 15 minutes Harper Shin [facility] Procedures Date Procedure Procedure Detail Performing Clinician Start: 01-06-2025 Radex ankle complete minimum 3 views Fior Pinon DPRobles Work Phone: Plan of Treatment Date Care Activity Detail Author Start: 02-03-2025 End: 02-03-2025 Patient encounter procedure 02/03/2025 10:30 AM EDT Office Visit [facility] [address] [place] [id number] Fior Pinon DPM [address] [place] [address] [facility] Start: 07-17-2024 Influenza vaccination Influenza Vacc ine (#1) [facility] Start: 2007 Screening for malign ant neoplasm of breast Mammogram [facility] Start: 1997 Screening for malign ant neoplasm of cervix [facility] Start: 1988 Screening for malign ant neoplasm of cervix Pap Smear [facility] Start: 1967 Screening for malign ant neoplasm of colon [facility] Immunizations Immunization Date Immunization Notes Care Provider Fa cility 09-05-2023 influenza virus vacc ine, unspecified formulation Fior Pinon DPM Work Phone: [facility] Payers Date Payer Category Payer Self-pay 2019 Private Health Insurance [facility] [id number] 1967 Unknown [id number] [id number]. 2.593 1967 Unknown [id number] 2.16840.1.701510.3.579. 2.593 1967 Unknown [id number] 2.16.840.1.371128.3.579. 2.593 1967 Unknown [id number] 2.16.840.1.450413.3.579. 2.593 1967 Unknown [id number] 2.16.840.1.659182.3.579. 2.1259 1967 Unknown [id number] 2.16.840.1.521090.3.579. 2.1259 1967 Unknown [id number] 2.16.840.1.241593.3.579. 2.1259 1967 Unknown [id number] 2.16.840.1.842787.3.579. 2.1286 1959 Unknown [id number] 2.16.840.1.104441.19 Unknown [id number] 2.16.840.1.467051.3.579. 2.531 Unknown [id number] 2.16.840.1.278226.3.579. 2.531 Unknown [id number] 2.16.840.1.846107.3.579. 2.531 Unknown [id number] 2.16.840.1.021255.3.579. 2.531 Worker's Compensation [id number] Social History Date Type Detail Facility Unknown if ever smoked [facility] Other Start: 01-06-2025 Sex Assigned At [facility] Other Start: 01-06-2025 Tobacco smoking stat [facility] Ex-smoker [facility] History of tobacco use [...] y.o. female who presents for Ankle Pain (Laura Tyler 59yo New patient presents with Right [...] Fior Pinon DPM documented in this encounter [facility] 07-24-2023 Evaluation note Encounter Date Diagnosis [...] obtain x-rays at consider a cortisone injection. [facility] Other 06-16-2023 Evaluation note* Encounter Date Diagnosis [...] 3 months. Short term disability phone? number [phone] [facility] Other 06-02-2023 Evaluation note* Encounter Date Diagnosis [...] for removal of sutures (ICD-10 - Z48.02) [facility] Other 05-26-2023 Evaluation note* Encounter Date Diagnosis [...] antibiotics. Call with any questions or concerns. [facility] Other 05-09-2023 NotePROCEDURE: XR FOREARM LT 2 [...] Electronically authenticated by: AC LOVING Date: 2023-03-24 11:04[facility]05-09-2023 NotePROCEDURE: XR FOREARM LT 2 VIEWS, [...] Electronically authenticated by: AC LOVING Date: 2023-03-24 11:04[facility]11-15-2021 Evaluation note* Encounter Date Diagnosis Assessment [...] Patient care instructions given in writting by [facility] Care At Home document [facility] Other Evaluation note* Diagnosis Posterior tibial tendinitis [...] Surgical History finger Hospitalization History see above [facility] Other History general Narrative - Reported* Type Description Date Medical History Tachycardia Surgical History hysterectomy Surgical History appendectomy Surgical History colonoscopy Surgical History finger Surgical History I & d left forearm Hospitalization History see above [facility] Other Summary Purpose Family History No Family [...] DATE CREATED AUTHOR AUTHOR'S ORGANIZ ATION 05/28/2023 [facility] DATE CREATED AUTHOR AUTHOR'S ORGANIZ ATION 02/05/2025 [facility] EPIC DATE CREATED AUTHOR AUTHOR'S ORGANIZ ATION 06/02/2025 [facility] Care Teams (unrecognized sec tion and content) Ordnance Officer Relationship Specialty Start Date End Date Huber Dewey MD [address] [place] [address] PCP - General Family Medicine 09/16/23 FOR [...] BE BASED ON THE PRIMARY CLINICAL RECORDS. [employer] provides no warranty or guarantee of the accuracy or completeness of information in this document.
== END 2025-07-04 10:29 | disposition home or self-care (01) ==
LOC: MAMMO 10:28
PROVIDERS: PCP Family Medicine; Visit Provider Family Medicine
DX: Z00.00 Encounter for general adult medical examination without abnormal findings (principal); Z80.8 Family history of malignant neoplasm of other organs or systems
CPT/HCPCS: 77063; 77067

== ENCOUNTER 2025-07-18 09:09 | Outpatient (OUT) | payer OTHER, SELFPAY ==
--- NOTE | 2025-07-18 09:11 | CT_ITS ---
The [address] [address] Patient Name: LAURA TYLER MRN: [id number] date: 1965 Sex: F Assigned Patient Location: CT Current Patient Location: CT Accession/Order Number: [id number] Exam Date: 07/18/2025 09:19 Report Date: 07/18/2025 09:57 At the request of: AMILCAR SMITH MD Procedure: CT lung screening low-dose LOW-DOSE SCREENING CHEST CT WITHOUT CONTRAST COMPARISON: None CLINICAL DATA: Former smoker for greater than 33 years. Spiral axial unenhanced low-dose images were obtained through the chest. Images were reviewed using both narrow and wide window settings. This CT exam was performed using one or more following dose reduction techniques: Automated exposure control, adjustment of the mA and/or kV according to patient size, or use of iterative reconstruction technique. The heart is normal in size. No pericardial effusion is seen. There is minor coronary artery disease. No aortic aneurysm is noted. Small benign-appearing mediastinal and axillary lymph nodes are visualized. There is slight dextroscoliotic curvature and minor endplate spurring at the spine. There is obstructive lung disease with airspace lucencies. Scarring is present at both lung apices. Additional scarring or atelectasis is present. There is no focal consolidation, pleural effusion or pneumothorax. There are multiple scattered pulmonary nodules, greater on the right measuring up to 5 mm in size at the right lower lobe. Limited imaging through the upper abdomen shows diverticular disease at the splenic flexure. CT/CT lung screening low-dose IMPRESSION: OBSTRUCTIVE LUNG DISEASE WITH MINOR SCARRING AND/OR ATELECTASIS. TINY PULMONARY NODULES. Lung RADS category 2 - benign Twelve-month low-dose CT follow-up suggested. Impression dictated by: Alethea Macario M.D. 07/18/2025 9:57 AM Dictation Location: [place] [address] Electronically authenticated by: [id number] Y Date: 07/18/2025 09:57
--- OUTSIDE RECORDS SUMMARY | 2025-07-18 09:13 | XMS_ITS | Clinical Summary ---
Author Organization [facility] Healthcare Address [address] [place] [address] Care Team Providers Care Compensation Consultant Name Role Phone Huber Thorne MD Primary Care Provider [phone] Allergies No known active allergies Medications Nirmatrelvir&Riton [...] Department Care Team Description 06/09/[address] [facility] [address] [place] [address] Huber Thorne MD Chronic GERD [...] 3, 11/12/2022, 11/14/2021, Additional history exists Insurance [facility] Care Teams Compensation Consultant Relationship Specialty Start Date End Date Huber Thorne MD [address] [place] [address] PCP - General Family Medicine 09/16/23
--- OUTSIDE RECORDS SUMMARY | 2025-07-18 09:13 | XMS_ITS | Clinical Summary ---
Author Organization [employer] [facility] tem Address [id number] [address] [place] [address] Care Team Providers Care Blue Prints Trimmer Name Role Phone No Pcp, No Pcp [...] EDT - 05/29/2025 2:11 PM EDT Emergency [facility] - Emergency [address] [place] [address] Bar Dash MD Laceration of left index [...] Risks, benefits, and alternatives were discussed: yes [place] protocol: Patient identity confirmed: Verbally with patient [...] HEALTHCARE WORKERS [employer]ENSATION [employer] Care Teams Blue Prints Trimmer Relationship Specialty Start Date End Date No Pcp, [place] [address] PCP - General Family Medicine 05/29/25
--- OUTSIDE RECORDS SUMMARY | 2025-07-18 09:15 | XMS_ITS | CCD ---
Author Organization [facility] Care Team Providers [employer] L[employer] Name Role Phone Harper Shin Unavailable LUIS [...] Unavailable Huber Dewey MD Primary Care Provider FIOR PINON Attending Unavailable FIOR PINON Referring Unavailable FIOR PINON Attending Unavailable NO PCP, NO PCP Primary Care Unavailable DAV PAL Attending Unavailable Allergies Allergy Classification Reported Allergen(s) Allergy Type Date of Onset Reaction(s) Facility (1 source) Penicillins Drug allergy (disorder) 04-07-2023 [facility] Repository Medications Current Medications Medication Drug Class(es) [...] for pain for 7 days HEATHER # [id number] March, Active Penicillin (2 sources) Penicillin 28 [...] 05-29-2025 Episodic Other aftercare (1 source) Other terminal gauger (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 Diffuse osteopenia. Small enthesophyte at the insertion of the Achilles tendon. Mild radiopacity across the tibia approximately 3 cm above the fused distal tibial physis. Talus appears well seated within the ankle mortise. No fractures or dislocations noted. [facility] Actificar e Radiology Study observation (narrative) [facility] XR elbow LT 2Von 05-06-2023 XR elbow LT 2V [facility] Main [place] [address] [place] [address] XRay Report Signed Patient: Laura Tyler MR#: [id number] : 1965 Acct:[id number] Age/Sex: 57 / F ADM Date: 05/06/23 Loc: [place] Room: Type: [facility] Attending Dr: Janny Concepcion DO Copies to: [...] Braden Rae M.D.05/06/2023 10:05 AM Dictation Location: [place] [address] Transcribed By: [facility] 05/06/23 1005 Dictated By: Braden Rea II, MD 05/06/23 1003 Signed By: 05/06/[address] [facility] [address] forearm LT wo conon 04-06 CT forearm LT wo con [facility] [place] [address] CT Scan Report Signed Patient: Laura Tyler MR#: [id number] : 1965 Acct:[id number] Age/Sex: 57 / F ADM Date: 04/06/23 Loc: CT Room: Type: [facility] Attending Dr: Janny Concepcion DO Copies to: Janny Concepcion DO Ordering Provider: Janny Concepcion DO Date of Service: 04/06/23 CT/CT humerus LT wo con: L03.114 ([id number]) CT/CT forearm LT wo con: Left arm [...] Braden Rae M.D.04/06/2023 4:54 PM Dictation Location: [place] [address] Transcribed By: [facility] 04/06/23 165 Dictated By: Braden Rae II, MD 04/06/23 1648 Signed By: 04/06/231653 Normal [facility] C-Reactive Proteinon 023 C-Reactive Protein 8.3 mg/dL High 0.0-0.5 [facility] Comment on above: Result Comment: PERF ORMED BY: [place] [id number] PATHOLOGIST ELEVATOR REPAIRER APPRENTICE FREDY PRICE M.D. Performed By: #### C RP #### [address] Complete Blood Count Auto Di ffon 04-02-2023 Basophils (Bld) [#/Vol] 0.1 10*3/uL Normal 0.0-0.2 [facility] Comment on above: Result Comment: PERF ORMED BY: [place] [address] PATHOLOGIST ELEVATOR REPAIRER APPRENTICE FREDY PRICE M.D. Performed By: #### C BC #### [address] Basophils/100 WBC (Bld) 0.6 % Normal . [facility] Comment on above: Performed By: #### C BC #### [address] Eosinophils (Bld) [#/Vol] 0.3 10*3/uL Normal 0.0-0.45 [facility] Comment on above: Performed By: #### C BC #### [address] Eosinophils/100 WBC (Bld) 2.5 % Normal . [facility] Comment on above: Performed By: #### C BC #### [address] Erythrocyte distribution width (RBC) [Ratio] 14.2 % Normal 11.9-15.3 [facility] Comment on above: Performed By: #### C BC #### [address] Hematocrit (Bld) [Volume fraction] 34.0 % Normal 34.0-46.4 [facility] Comment on above: Performed By: #### C BC #### [address] Hemoglobin (Bld) [Mass/Vol] 10.9 g/dL Low 11.8-15.4 [facility] Comment on above: Performed By: #### C BC #### [address] Lymphocytes (Bld) [#/Vol] 1.0 10*3/uL Normal 1.00-4.8 [facility] Comment on above: Performed By: #### C BC #### [address] Lymphocytes/100 WBC (Bld) 8.8 % Normal . [facility] Comment on above: Performed By: #### C BC #### [address] MCH (RBC) [Entitic mass] 27.3 pg Normal 24.7-34.3 [facility] Comment on above: Performed By: #### C BC #### [address] MCV (RBC) [Entitic vol] 85.4 fL Normal 80-100 [facility] Comment on above: Performed By: #### C BC #### [address] Mean Corpuscular HGB Conc 32.0 g/dL Normal 32.0-35.0 [facility] Comment on above: Performed By: #### C BC #### [address] Monocytes (Bld) [#/Vol] 0.3 10*3/uL Normal 0.0-0.8 [facility] Comment on above: Performed By: #### C BC #### [address] Monocytes/100 WBC (Bld) 2.3 % Normal . [facility] Comment on above: Performed By: #### C BC #### [address] Neutrophils (Bld) [#/Vol] 9.9 10*3/uL High 1.8-7.7 [facility] Comment on above: Performed By: #### C BC #### [address] Neutrophils/100 WBC (Bld) 85.8 % Normal . [facility] Comment on above: Performed By: #### C BC #### [address] NRBC% 0.0 /100{WBC} Normal 0-0.5 [facility] Comment on above: Performed By: #### C BC #### [address] Platelet mean volume (Bld) [Entitic vol] 7.5 fL Normal 6.3-10.7 [facility] Comment on above: Performed By: #### C BC #### [address] Platelets (Bld) [#/Vol] 476 10*3/uL High 150-450 [facility] Comment on above: Performed By: #### C BC #### [facility] [address] RBC (Bld) [#/Vol] 3.98 10*6/uL Normal 3.60-5.00 [facility] Comment on above: Performed By: #### C BC #### [facility] [address] WBC (Bld) [#/Vol] 11.5 10*3/uL Normal 3.8-11.6 [facility] Comment on above: Performed By: #### C BC #### [facility] [address] Basic Metabolic Panelon 03-16 Anion gap [Moles/Vol] 9.0 mmol/L Normal 6.0-15.0 [facility] Comment on above: Performed By: #### B MP #### [facility] [address] Calcium [Mass/Vol] 7.7 mg/dL Low 8.6-10.3 [facility] Comment on above: Performed By: #### B MP #### [facility] [address] Chloride [Moles/Vol] 102 mmol/L Normal 98-107 [facility] Comment on above: Performed By: #### B MP #### [address] CO2 [Moles/Vol] 30.4 mmol/L Normal 21.0-31.0 [facility] Comment on above: Performed By: #### B MP #### [facility] [address] Creatinine [Mass/Vol] 0.63 mg/dL Normal 0.60-1.20 [facility] Comment on above: Performed By: #### B MP #### [facility] [address] [place] [address] Creatinine Clr Calc Pharmacy 109.55 Normal [facility] Comment on above: Result Comment: PERF ORMED BY: [place] [address] PATHOLOGIST ELEVATOR REPAIRER APPRENTICE FREDY PRICE M.D. Performed By: #### B MP #### [place] [address] [place] GFR/1.73 sq M.predicted MDRD (S/P/Bld) [Vol rate/Area] mL/min/{1.73_m2} Normal [facility] Comment on above: Performed By: #### B MP #### [address] Glucose [Mass/Vol] 85 mg/dL Normal 70-100 [facility] Comment on above: Result Comment: [facility] Glucose Reference Range is dependent on time and content of last meal. Glucose of more than 200 mg/dL in a nonstressed, ambulatory subject supports the diagnosis of Diabetes Mellitus. ADA recommended reference range Performed By: #### B MP #### [address] Potassium [Moles/Vol] 4.4 mmol/L Normal 3.5-5.1 [facility] Comment on above: Performed By: #### B MP #### [address] Sodium [Moles/Vol] 137 mmol/L Normal 136-145 [facility] Comment on above: Performed By: #### B MP #### [place] [address] [place] Urea nitrogen [Mass/Vol] 14 mg/dL Normal 7-25 [facility] Comment on above: Performed By: #### B MP #### [address] Complete Blood Count Auto Di ffon 04-01-2023 Basophils (Bld) [#/Vol] 0.0 10*3/uL Normal 0.0-0.2 [facility] Comment on above: Result Comment: PERF ORMED BY: [place] [address] PATHOLOGIST ELEVATOR REPAIRER APPRENTICE FREDY PRICE M.D. Performed By: #### E SR, CRP #### [facility] [address] [place] [address] [place] Basophils/100 WBC (Bld) 0.4 % Normal . [facility] Comment on above: Performed By: #### E SR, CRP #### [facility] [address] [place] [address] [place] Eosinophils (Bld) [#/Vol] 0.2 10*3/uL Normal 0.0-0.45 [facility] Comment on above: Performed By: #### E SR, CRP #### [facility] [address] [place] [address] [place] Eosinophils/100 WBC (Bld) 1.4 % Normal . [facility] Comment on above: Performed By: #### E SR, CRP #### [facility] [address] [place] [address] Erythrocyte distribution width (RBC) [Ratio] 14.5 % Normal 11.9-15.3 [facility] Comment on above: Performed By: #### E SR, CRP #### [facility] [address] [place] [address] [place] Hematocrit (Bld) [Volume fraction] 32.7 % Low 34.0-46.4 [facility] Comment on above: Performed By: #### E SR, CRP #### [facility] [address] [place] [address] [place] Hemoglobin (Bld) [Mass/Vol] 10.6 g/dL Low 11.8-15.4 [facility] Comment on above: Performed By: #### E SR, CRP #### [facility] [address] [place] [address] [place] Lymphocytes (Bld) [#/Vol] 1.0 10*3/uL Normal 1.00-4.8 [facility] Comment on above: Performed By: #### E SR, CRP #### [facility] [address] [place] [address] [place] Lymphocytes/100 WBC (Bld) 8.7 % Normal . [facility] Comment on above: Performed By: #### E SR, CRP #### [facility] [address] MCH (RBC) [Entitic mass] 27.6 pg Normal 24.7-34.3 [facility] Comment on above: Performed By: #### E SR, CRP #### [facility] [address] MCV (RBC) [Entitic vol] 85.4 fL Normal 80-100 [facility] Comment on above: Performed By: #### E SR, CRP #### [facility] [address] [place] [address] Mean Corpuscular HGB Conc 32.3 g/dL Normal 32.0-35.0 [facility] Comment on above: Performed By: #### E SR, CRP #### [facility] [address] [place] [address] Monocytes (Bld) [#/Vol] 0.3 10*3/uL Normal 0.0-0.8 [facility] Comment on above: Performed By: #### E SR, CRP #### [facility] [address] [place] [address] Monocytes/100 WBC (Bld) 2.7 % Normal . [facility] Comment on above: Performed By: #### E SR, CRP #### [facility] [address] [place] [address] Neutrophils (Bld) [#/Vol] 10.4 10*3/uL High 1.8-7.7 [facility] Comment on above: Performed By: #### E SR, CRP #### [facility] [address] [place] [address] [place] Neutrophils/100 WBC (Bld) 86.8 % Normal . [facility] Comment on above: Performed By: #### E SR, CRP #### [facility] [address] [place] [address] NRBC% 0.1 /100{WBC} Normal 0-0.5 [facility] Comment on above: Performed By: #### E SR, CRP #### [facility] [address] [place] [address] Platelet mean volume (Bld) [Entitic vol] 7.6 fL Normal 6.3-10.7 [facility] Comment on above: Performed By: #### E SR, CRP #### [address] Platelets (Bld) [#/Vol] 450 10*3/uL Normal 150-450 [facility] Comment on above: Performed By: #### E SR, CRP #### [address] RBC (Bld) [#/Vol] 3.83 10*6/uL Normal 3.60-5.00 [facility] Comment on above: Performed By: #### E SR, CRP #### [address] WBC (Bld) [#/Vol] 12.0 10*3/uL High 3.8-11.6 [facility] Comment on above: Performed By: #### Jeffery SR, CRP #### [address] Basic Metabolic Panelon 05-1 Anion gap [Moles/Vol] 10.7 mmol/L Normal 6.0-15.0 [facility] Comment on above: Performed By: #### B MP, CBC #### [address] Calcium [Mass/Vol] 7.7 mg/dL Low 8.6-10.3 [facility] Comment on above: Performed By: #### B MP, CBC #### [address] Chloride [Moles/Vol] 101 mmol/L Normal 98-107 [facility] Comment on above: Performed By: #### B MP, CBC #### [address] CO2 [Moles/Vol] 31.2 mmol/L High 21.0-31.0 [facility] Comment on above: Performed By: #### B MP, CBC #### [facility] [address] [place] [address] [place] Creatinine [Mass/Vol] 0.71 mg/dL Normal 0.60-1.20 [facility] Comment on above: Performed By: #### B MP, CBC #### [facility] [address] [place] [address] [place] Creatinine Clr Calc Pharmacy 97.38 Normal [facility] Comment on above: Result Comment: PERF ORMED BY: [place] [address] PATHOLOGIST ELEVATOR REPAIRER APPRENTICE FREDY PRICE M.D. Performed By: #### B MP, CBC #### [place] [address] [place] GFR/1.73 sq M.predicted MDRD (S/P/Bld) [Vol rate/Area] mL/min/{1.73_m2} Normal [facility] Comment on above: Performed By: #### B MP, CBC #### [address] Glucose [Mass/Vol] 84 mg/dL Normal 70-100 [facility] Comment on above: Result Comment: [facility] Glucose Reference Range is dependent on time and content of last meal. Glucose of more than 200 mg/dL in a nonstressed, ambulatory subject supports the diagnosis of Diabetes Mellitus. ADA recommended reference range Performed By: #### B MP, CBC #### [place] [address] [place] Potassium [Moles/Vol] 3.9 mmol/L Normal 3.5-5.1 [facility] Comment on above: Performed By: #### B MP, CBC #### [place] [address] [place] Sodium [Moles/Vol] 139 mmol/L Normal 136-145 [facility] Comment on above: Performed By: #### B MP, CBC #### [facility] [address] [place] [address] [place] Urea nitrogen [Mass/Vol] 17 mg/dL Normal 7-25 [facility] Comment on above: Performed By: #### B MP, CBC #### [facility] [address] Complete Blood Count Auto Di ffon 03-31-2023 Basophils (Bld) [#/Vol] 0.1 10*3/uL Normal 0.0-0.2 [facility] Comment on above: Result Comment: PERF ORMED BY: [place] [address] PATHOLOGIST ELEVATOR REPAIRER APPRENTICE FREDY PRICE M.D. Performed By: #### B MP, CBC #### [address] Basophils/100 WBC (Bld) 0.3 % Normal . [facility] Comment on above: Performed By: #### B MP, CBC #### [address] Eosinophils (Bld) [#/Vol] 0.1 10*3/uL Normal 0.0-0.45 [facility] Comment on above: Performed By: #### B MP, CBC #### [address] Eosinophils/100 WBC (Bld) 0.9 % Normal . [facility] Comment on above: Performed By: #### B MP, CBC #### [address] Erythrocyte distribution width (RBC) [Ratio] 14.2 % Normal 11.9-15.3 [facility] Comment on above: Performed By: #### B MP, CBC #### [facility] [address] [place] [address] Hematocrit (Bld) [Volume fraction] 33.1 % Low 34.0-46.4 [facility] Comment on above: Performed By: #### B MP, CBC #### [address] Hemoglobin (Bld) [Mass/Vol] 10.6 g/dL Low 11.8-15.4 [facility] Comment on above: Performed By: #### B MP, CBC #### [facility] [address] Lymphocytes (Bld) [#/Vol] 0.9 10*3/uL Low 1.00-4.8 [facility] Comment on above: Performed By: #### B MP, CBC #### [address] Lymphocytes/100 WBC (Bld) 6.1 % Normal . [facility] Comment on above: Performed By: #### B MP, CBC #### [address] MCH (RBC) [Entitic mass] 27.3 pg Normal 24.7-34.3 [facility] Comment on above: Performed By: #### B MP, CBC #### [address] MCV (RBC) [Entitic vol] 85.5 fL Normal 80-100 [facility] Comment on above: Performed By: #### B MP, CBC #### [address] Mean Corpuscular HGB Conc 31.9 g/dL Low 32.0-35.0 [facility] Comment on above: Performed By: #### B MP, CBC #### [address] Monocytes (Bld) [#/Vol] 0.3 10*3/uL Normal 0.0-0.8 [facility] Comment on above: Performed By: #### B MP, CBC #### [place] [address] [place] Monocytes/100 WBC (Bld) 2.3 % Normal . [facility] Comment on above: Performed By: #### B MP, CBC #### [address] Neutrophils (Bld) [#/Vol] 13.5 10*3/uL High 1.8-7.7 [facility] Comment on above: Performed By: #### B MP, CBC #### [address] Neutrophils/100 WBC (Bld) 90.4 % Normal . [facility] Comment on above: Performed By: #### B MP, CBC #### [facility] [address] NRBC% 0.0 /100{WBC} Normal 0-0.5 [facility] Comment on above: Performed By: #### B MP, CBC #### [address] Platelet mean volume (Bld) [Entitic vol] 7.8 fL Normal 6.3-10.7 [facility] Comment on above: Performed By: #### B MP, CBC #### [address] Platelets (Bld) [#/Vol] 447 10*3/uL Normal 150-450 [facility] Comment on above: Performed By: #### B MP, CBC #### [address] RBC (Bld) [#/Vol] 3.87 10*6/uL Normal 3.60-5.00 [facility] Comment on above: Performed By: #### B MP, CBC #### [address] WBC (Bld) [#/Vol] 14.9 10*3/uL High 3.8-11.6 [facility] Comment on above: Performed By: #### B MP, CBC #### [address] Basic Metabolic Panelon 05- Anion gap [Moles/Vol] 8.2 mmol/L Normal 6.0-15.0 [facility] Comment on above: Performed By: #### E SR, CRP #### [address] Calcium [Mass/Vol] 8.1 mg/dL Low 8.6-10.3 [facility] Comment on above: Performed By: #### E SR, CRP #### [facility] [address] [place] [address] [place] Chloride [Moles/Vol] 100 mmol/L Normal 98-107 [facility] Comment on above: Performed By: #### E SR, CRP #### [facility] [address] [place] [address] [place] CO2 [Moles/Vol] 34.7 mmol/L High 21.0-31.0 [facility] Comment on above: Performed By: #### E SR, CRP #### [facility] [address] [place] [address] [place] Creatinine [Mass/Vol] 0.65 mg/dL Normal 0.60-1.20 [facility] Comment on above: Performed By: #### E SR, CRP #### [facility] [address] [place] [address] [place] Creatinine Clr Calc Pharmacy 105.75 [facility] Comment on above: Performed By: #### E SR, CRP #### [facility] [address] [place] [address] [place] GFR/1.73 sq M.predicted MDRD (S/P/Bld) [Vol rate/Area] mL/min/{1.73_m2} [facility] Comment on above: Performed By: #### E SR, CRP #### [facility] [address] [place] [address] [place] Glucose [Mass/Vol] 120 mg/dL High 70-100 [facility] Comment on above: Result Comment: [place] Glucose Reference Range is dependent on time and content of last meal. Glucose of more than 200 mg/dL in a nonstressed, ambulatory subject supports the diagnosis of Diabetes Mellitus. ADA recommended reference range Performed By: #### E SR, CRP #### [facility] [address] [place] [address] [place] Potassium [Moles/Vol] 3.9 mmol/L Normal 3.5-5.1 [facility] Comment on above: Performed By: #### E SR, CRP #### [place] [address] Sodium [Moles/Vol] 139 mmol/L Normal 136-145 [facility] Comment on above: Performed By: #### E SR, CRP #### [address] Urea nitrogen [Mass/Vol] 16 mg/dL Normal 7-25 [facility] Comment on above: Performed By: #### E SR, CRP #### [address] Complete Blood Count Auto Di ffon 03-30-2023 Basophils (Bld) [#/Vol] 0.1 10*3/uL Normal 0.0-0.2 [facility] Comment on above: Result Comment: PERF ORMED BY: [place] [address] PATHOLOGIST ELEVATOR REPAIRER APPRENTICE FREDY PRICE M.D. Performed By: #### E SR, CRP #### [address] Basophils/100 WBC (Bld) 0.4 % Normal . [facility] Comment on above: Performed By: #### E SR, CRP #### [address] Eosinophils (Bld) [#/Vol] 0.0 10*3/uL Normal 0.0-0.45 [facility] Comment on above: Performed By: #### E SR, CRP #### [address] Eosinophils/100 WBC (Bld) 0.0 % Normal . [facility] Comment on above: Performed By: #### E SR, CRP #### [address] Erythrocyte distribution width (RBC) [Ratio] 14.2 % Normal 11.9-15.3 [facility] Comment on above: Performed By: #### E SR, CRP #### [address] Hematocrit (Bld) [Volume fraction] 34.8 % Normal 34.0-46.4 [facility] Comment on above: Performed By: #### E SR, CRP #### [facility] [address] Hemoglobin (Bld) [Mass/Vol] 11.1 g/dL Low 11.8-15.4 [facility] Comment on above: Performed By: #### E SR, CRP #### [facility] [address] Lymphocytes (Bld) [#/Vol] 0.9 10*3/uL Low 1.00-4.8 [facility] Comment on above: Performed By: #### E SR, CRP #### [facility] [address] Lymphocytes/100 WBC (Bld) 3.6 % Normal . [facility] Comment on above: Performed By: #### E SR, CRP #### [facility] [address] MCH (RBC) [Entitic mass] 27.0 pg Normal 24.7-34.3 [facility] Comment on above: Performed By: #### E SR, CRP #### [facility] [address] MCV (RBC) [Entitic vol] 84.5 fL Normal 80-100 [facility] Comment on above: Performed By: #### E SR, CRP #### [facility] [address] Mean Corpuscular HGB Conc 32.0 g/dL Normal 32.0-35.0 [facility] Comment on above: Performed By: #### E SR, CRP #### [facility] [address] [place] [address] [place] Monocytes (Bld) [#/Vol] 0.5 10*3/uL Normal 0.0-0.8 [facility] Comment on above: Performed By: #### E SR, CRP #### [facility] [address] [place] [address] [place] Monocytes/100 WBC (Bld) 2.3 % Normal . [facility] Comment on above: Performed By: #### E SR, CRP #### [facility] [address] [place] [address] [place] Neutrophils (Bld) [#/Vol] 22.4 10*3/uL High 1.8-7.7 [facility] Comment on above: Performed By: #### E SR, CRP #### [facility] [address] [place] [id number] [place] Neutrophils/100 WBC (Bld) 93.7 % Normal . [facility] Comment on above: Performed By: #### E SR, CRP #### [facility] [address] [place] [address] [place] NRBC% 0.0 /100{WBC} Normal 0-0.5 [facility] - [place] Comment on above: Performed By: #### E SR, CRP #### [facility] [address] [place] [address] [place] Platelet mean volume (Bld) [Entitic vol] 8.1 fL Normal 6.3-10.7 [facility] [place] Comment on above: Performed By: #### E SR, CRP #### [facility] [address] [place] [address] [place] Platelets (Bld) [#/Vol] 398 10*3/uL Normal 150-450 [facility] [place] Comment on above: Performed By: #### E SR, CRP #### [facility] [address] [place] [address] [place] RBC (Bld) [#/Vol] 4.12 10*6/uL Normal 3.60-5.00 [facility] Comment on above: Performed By: #### E SR, CRP #### [facility] [address] [place] [address] [place] WBC (Bld) [#/Vol] 23.9 10*3/uL High 3.8-11.6 [facility] Comment on above: Performed By: #### E SR, CRP #### [facility] [address] [place] [address] [place] ECG 12 lead ECGon 05-15-2023 ECG 12 lead ECG [facility] Main [place] [address] [place] [address] Electrocardiograph Report Signed Patient: Laura Tyler MR#: [id number] : 1965 Acct:[id number] Age/Sex: 57 / F ADM Date: 03/26/23 Loc: Room: [address] [place] [address] Type: ADM IN Attending Dr: Arabella Bynum [...] Nishant Anders MD 0 03/30/23 1627 Normal [facility] [place] Magnesiumon 03-30-2023 Magnesium [Mass/Vol] 1.8 mg/dL Low 1.9-2.7 [facility] Comment on above: Result Comment: PERF ORMED BY: [place] [id number] PATHOLOGIST ELEVATOR REPAIRER APPRENTICE FREDY PRICE M.D. Performed By: #### E SR, CRP #### [address] Aerobic Cultureon 03-29-2023 Aerobic Culture ORGANISM: Streptococcus pyogenes grp A (O:STRPYO) Comments Organism Not Routinely Tested for Susceptibilities Quantity of Growth Light Growth No Anaerobes Isolated 3 Days Gram Stain Result 1+ White Blood Cells Rare Gram Positive Cocci PERFORMED BY: [place] [id number] PATHOLOGIST ELEVATOR REPAIRER APPRENTICE FREDY PRICE M.D. Normal [facility] [place] Comment on above: Performed By: #### B MP, CBC #### [facility] [address] Basic Metabolic Panelon 05-1 Anion gap [Moles/Vol] 9.8 mmol/L Normal 6.0-15.0 [facility] [place] Comment on above: Performed By: #### B MP, CBC #### [facility] [address] Calcium [Mass/Vol] 8.2 mg/dL Low 8.6-10.3 [facility] Comment on above: Performed By: #### B MP, CBC #### [facility] [address] Chloride [Moles/Vol] 100 mmol/L Normal 98-107 [facility] Comment on above: Performed By: #### B MP, CBC #### [address] CO2 [Moles/Vol] 31.7 mmol/L High 21.0-31.0 [facility] Comment on above: Performed By: #### B MP, CBC #### [facility] [address] Creatinine [Mass/Vol] 0.60 mg/dL Normal 0.60-1.20 [facility] [place] Comment on above: Performed By: #### B MP, CBC #### [facility] [address] [place] [address] [place] Creatinine Clr Calc Pharmacy 114.56 Normal [facility] [place] Comment on above: Result Comment: PERF ORMED BY: [place] [id number] PATHOLOGIST ELEVATOR REPAIRER APPRENTICE FREDY PRICE M.D. Performed By: #### B MP, CBC #### [facility] [address] [place] [address] [place] GFR/1.73 sq M.predicted MDRD (S/P/Bld) [Vol rate/Area] mL/min/{1.73_m2} Normal [facility] [place] Comment on above: Performed By: #### B MP, CBC #### [facility] [address] Glucose [Mass/Vol] 92 mg/dL Normal 70-100 [facility] Comment on above: Result Comment: [facility] Glucose Reference Range is dependent on time and content of last meal. Glucose of more than 200 mg/dL in a nonstressed, ambulatory subject supports the diagnosis of Diabetes Mellitus. ADA recommended reference range Performed By: #### B MP, CBC #### [facility] [address] Potassium [Moles/Vol] 3.5 mmol/L Normal 3.5-5.1 [facility] [place] Comment on above: Performed By: #### B MP, CBC #### [address] Sodium [Moles/Vol] 138 mmol/L Normal 136-145 [facility] Comment on above: Performed By: #### B MP, CBC #### [address] Urea nitrogen [Mass/Vol] 9 mg/dL Normal 7-25 [facility] [place] Comment on above: Performed By: #### B MP, CBC #### [address] Complete Blood Count Auto Di ffon 03-29-2023 Basophils (Bld) [#/Vol] 0.1 10*3/uL Normal 0.0-0.2 [facility] [place] Comment on above: Result Comment: PERF ORMED BY: [place] [address] PATHOLOGIST ELEVATOR REPAIRER APPRENTICE FREDY PRICE M.D. Performed By: #### B MP, CBC #### [place] [address] [place] Basophils/100 WBC (Bld) 0.3 % Normal . [facility] [place] Comment on above: Performed By: #### B MP, CBC #### [facility] [address] [place] [address] [place] Eosinophils (Bld) [#/Vol] 0.2 10*3/uL Normal 0.0-0.45 [facility] [place] Comment on above: Performed By: #### B MP, CBC #### [facility] [address] Eosinophils/100 WBC (Bld) 1.0 % Normal . [facility] [place] Comment on above: Performed By: #### B MP, CBC #### [address] Erythrocyte distribution width (RBC) [Ratio] 14.3 % Normal 11.9-15.3 [facility] [place] Comment on above: Performed By: #### B MP, CBC #### [address] Hematocrit (Bld) [Volume fraction] 35.2 % Normal 34.0-46.4 [facility] [place] Comment on above: Performed By: #### B MP, CBC #### [address] Hemoglobin (Bld) [Mass/Vol] 11.4 g/dL Low 11.8-15.4 [facility] [place] Comment on above: Performed By: #### B MP, CBC #### [place] [address] [place] Lymphocytes (Bld) [#/Vol] 1.0 10*3/uL Normal 1.00-4.8 [facility] [place] Comment on above: Performed By: #### B MP, CBC #### [place] [address] [place] Lymphocytes/100 WBC (Bld) 4.7 % Normal . [facility] [place] Comment on above: Performed By: #### B MP, CBC #### [address] MCH (RBC) [Entitic mass] 27.3 pg Normal 24.7-34.3 [facility] [place] Comment on above: Performed By: #### B MP, CBC #### [facility] [address] MCV (RBC) [Entitic vol] 84.1 fL Normal 80-100 [facility] [place] Comment on above: Performed By: #### B MP, CBC #### [facility] [address] Mean Corpuscular HGB Conc 32.5 g/dL Normal 32.0-35.0 [facility] [place] Comment on above: Performed By: #### B MP, CBC #### [facility] [address] Monocytes (Bld) [#/Vol] 0.8 10*3/uL Normal 0.0-0.8 [facility] [place] Comment on above: Performed By: #### B MP, CBC #### [address] Monocytes/100 WBC (Bld) 3.8 % Normal . [facility] [place] Comment on above: Performed By: #### B MP, CBC #### [address] Neutrophils (Bld) [#/Vol] 18.4 10*3/uL High 1.8-7.7 [facility] [place] Comment on above: Performed By: #### B MP, CBC #### [address] Neutrophils/100 WBC (Bld) 90.2 % Normal . [facility] [place] Comment on above: Performed By: #### B MP, CBC #### [address] NRBC% 0.0 /100{WBC} Normal 0-0.5 [facility] [place] Comment on above: Performed By: #### B MP, CBC #### [address] Platelet mean volume (Bld) [Entitic vol] 8.2 fL Normal 6.3-10.7 [facility] [place] Comment on above: Performed By: #### B MP, CBC #### [place] [address] [place] Platelets (Bld) [#/Vol] 368 10*3/uL Normal 150-450 [facility] [place] Comment on above: Performed By: #### B MP, CBC #### [address] RBC (Bld) [#/Vol] 4.18 10*6/uL Normal 3.60-5.00 [facility] Comment on above: Performed By: #### B MP, CBC #### [address] WBC (Bld) [#/Vol] 20.4 10*3/uL High 3.8-11.6 [facility] Comment on above: Performed By: #### B MP, CBC #### [address] Basic Metabolic Panelon 05- Anion gap [Moles/Vol] 10.1 mmol/L Normal 6.0-15.0 [facility] [place] Comment on above: Performed By: #### B MP, CBC #### [address] Calcium [Mass/Vol] 8.0 mg/dL Low 8.6-10.3 [facility] Comment on above: Performed By: #### B MP, CBC #### [address] Chloride [Moles/Vol] 101 mmol/L Normal 98-107 [facility] Comment on above: Performed By: #### B MP, CBC #### [address] CO2 [Moles/Vol] 29.2 mmol/L Normal 21.0-31.0 [facility] Comment on above: Performed By: #### B MP, CBC #### [address] Creatinine [Mass/Vol] 0.68 mg/dL Normal 0.60-1.20 [facility] [place] Comment on above: Performed By: #### B MP, CBC #### [facility] [address] [place] [address] [place] Creatinine Clr Calc Pharmacy 88.34 Normal [facility] [place] Comment on above: Result Comment: PERF ORMED BY: [place] [id number] PATHOLOGIST ELEVATOR REPAIRER APPRENTICE FREDY PRICE M.D. Performed By: #### B MP, CBC #### [place] [address] [place] GFR/1.73 sq M.predicted MDRD (S/P/Bld) [Vol rate/Area] mL/min/{1.73_m2} Normal [facility] [place] Comment on above: Performed By: #### B MP, CBC #### [address] Glucose [Mass/Vol] 92 mg/dL Normal 70-100 [facility] Comment on above: Result Comment: [place] Glucose Reference Range is dependent on time and content of last meal. Glucose of more than 200 mg/dL in a nonstressed, ambulatory subject supports the diagnosis of Diabetes Mellitus. ADA recommended reference range Performed By: #### B MP, CBC #### [address] Potassium [Moles/Vol] 3.3 mmol/L Low 3.5-5.1 [facility] [place] Comment on above: Performed By: #### B MP, CBC #### [place] [address] [place] Sodium [Moles/Vol] 137 mmol/L Normal 136-145 [facility] Comment on above: Performed By: #### B MP, CBC #### [place] [address] [place] Urea nitrogen [Mass/Vol] 9 mg/dL Normal 7-25 [facility] [place] Comment on above: Performed By: #### B MP, CBC #### [place] [address] [place] Blood Cultureon 03-28-2023 Bacteria identified Cx Nom (Bld) NO GROWTH 5 DAYS PERFORMED BY: [place] [id number] PATHOLOGIST ELEVATOR REPAIRER APPRENTICE FREDY PRICE M.D. [facility] Comment on above: Performed By: #### B MP, CBC #### [place] [id number] [facility] C-Reactive Proteinon 023 C-Reactive Protein 25.4 mg/dL High 0.0-0.5 [facility] Comment on above: Result Comment: PERF ORMED BY: [place] [address] PATHOLOGIST ELEVATOR REPAIRER APPRENTICE FREDY PRICE M.D. Performed By: #### E SR, CRP #### [address] forearm LT w conon 2022 CT forearm LT w con [facility] [place] [address] [place] [address] CT Scan Report Signed Patient: Laura Tyler MR#: [id number] : 1965 Acct:[id number] Age/Sex: 57 / F ADM Date: 03/26/23 Loc: Room: [address] [place] [address] Type: ADM IN Attending Dr: John Kimball MD Copies to: MD Janny Staples DO Ordering Provider: Janny Concepcion DO Date of Service: 03/28/23 CT/CT humerus LT w con: cellulitis ([id number]) CT/CT forearm LT w con: cellulitis CT [...] Braden Rae M.D.03/28/2023 12:19 PM Dictation Location: [place] [address] Transcribed By: [facility] 03/28/23 1219 Dictated By: Braden Rae II, MD 03/28/23 1212 Signed By: 03/28/23 1219 Normal [facility] [place] Complete Blood Count Auto Di ffon 03-28-2023 Basophils (Bld) [#/Vol] 0.1 10*3/uL Normal 0.0-0.2 [facility] [place] Comment on above: Result Comment: PERF ORMED BY: [place] [id number] PATHOLOGIST ELEVATOR REPAIRER APPRENTICE FREDY PRICE M.D. Performed By: #### B MP, CBC #### [facility] [address] [place] [address] [place] Basophils/100 WBC (Bld) 0.4 % Normal . [facility] [place] Comment on above: Performed By: #### B MP, CBC #### [facility] [address] [place] [address] [place] Eosinophils (Bld) [#/Vol] 0.2 10*3/uL Normal 0.0-0.45 [facility] [place] Comment on above: Performed By: #### B MP, CBC #### [facility] [address] [place] [address] [place] Eosinophils/100 WBC (Bld) 1.1 % Normal . [facility] [place] Comment on above: Performed By: #### B MP, CBC #### [facility] [address] Erythrocyte distribution width (RBC) [Ratio] 14.7 % Normal 11.9-15.3 [facility] [place] Comment on above: Performed By: #### B MP, CBC #### [address] Hematocrit (Bld) [Volume fraction] 36.0 % Normal 34.0-46.4 [facility] [place] Comment on above: Performed By: #### B MP, CBC #### [address] Hemoglobin (Bld) [Mass/Vol] 11.6 g/dL Low 11.8-15.4 [facility] [place] Comment on above: Performed By: #### B MP, CBC #### [address] Lymphocytes (Bld) [#/Vol] 0.9 10*3/uL Low 1.00-4.8 [facility] [place] Comment on above: Performed By: #### B MP, CBC #### [place] [address] [place] Lymphocytes/100 WBC (Bld) 4.3 % Normal . [facility] [place] Comment on above: Performed By: #### B MP, CBC #### [address] MCH (RBC) [Entitic mass] 27.2 pg Normal 24.7-34.3 [facility] [place] Comment on above: Performed By: #### B MP, CBC #### [address] MCV (RBC) [Entitic vol] 84.7 fL Normal 80-100 [facility] [place] Comment on above: Performed By: #### B MP, CBC #### [address] Mean Corpuscular HGB Conc 32.2 g/dL Normal 32.0-35.0 [facility] [place] Comment on above: Performed By: #### B MP, CBC #### [facility] [address] [place] [address] [place] Monocytes (Bld) [#/Vol] 1.0 10*3/uL High 0.0-0.8 [facility] [place] Comment on above: Performed By: #### B MP, CBC #### [facility] [address] [place] [address] [place] Monocytes/100 WBC (Bld) 4.7 % Normal . [facility] [place] Comment on above: Performed By: #### B MP, CBC #### [facility] [address] [place] [address] [place] Neutrophils (Bld) [#/Vol] 18.7 10*3/uL High 1.8-7.7 [facility] [place] Comment on above: Performed By: #### B MP, CBC #### [address] Neutrophils/100 WBC (Bld) 89.5 % Normal . [facility] [place] Comment on above: Performed By: #### B MP, CBC #### [address] NRBC% 0.0 /100{WBC} Normal 0-0.5 [facility] [place] Comment on above: Performed By: #### B MP, CBC #### [facility] [address] Platelet mean volume (Bld) [Entitic vol] 8.6 fL Normal 6.3-10.7 [facility] [place] Comment on above: Performed By: #### B MP, CBC #### [facility] [address] [place] [address] [place] Platelets (Bld) [#/Vol] 329 10*3/uL Normal 150-450 [facility] [place] Comment on above: Performed By: #### B MP, CBC #### [facility] [address] [place] [address] [place] RBC (Bld) [#/Vol] 4.25 10*6/uL Normal 3.60-5.00 [facility] Comment on above: Performed By: #### B MP, CBC #### [facility] [address] [place] [address] WBC (Bld) [#/Vol] 20.8 10*3/uL High 3.8-11.6 [facility] Comment on above: Performed By: #### B MP, CBC #### [facility] [address] [place] [address] ECG 12 lead ECGon 03-28-2023 ECG 12 lead ECG [facility] [place] [address] [place] [address] Electrocardiograph Report Signed Patient: Laura Tyler MR#: [id number] : 1965 Acct:[id number] Age/Sex: 57 / F ADM Date: 03/26/23 Loc: Room: [address] [place] [address] Type: ADM IN Attending Dr: John Kimball [...] By Zi Luna DO 03/29 1145 Normal [facility] [place] Erythrocyte Sedimentation Ra charisma 03-28-2023 ESR (Bld) [Velocity] 79 mm/h High 0-29 [facility] Comment on above: Result Comment: PERF ORMED BY: [place] [id number] PATHOLOGIST ELEVATOR REPAIRER APPRENTICE FREDY PRICE M.D. Performed By: #### E SR, CRP #### [address] HCG,Quantitativeon HCG,Quantitative 1.38 m[iU]/mL Normal [facility] Comment on above: Result Comment: Appr oximate Approximate hCG Gestational Age Range (mIU/ml) (weeks) 0.2-1 5-50 1-2 50-500 2-3 100-5,000 3-4 500-10,000 4-5 1,000-50,000 5-6 10,000-100,000 6-8 15,000-200,000 8-12 10,000-100,000 PERFORMED BY: [place] [address] PATHOLOGIST ELEVATOR REPAIRER APPRENTICE FREDY PRICE M.D. Performed By: #### B MP, CBC #### [facility] [address] [place] [address] Basic Metabolic Panelon 03-16 Anion gap [Moles/Vol] 11.6 mmol/L Normal 6.0-15.0 [facility] [place] Comment on above: Performed By: #### E SR, CRP #### [facility] [address] [place] [address] [place] Calcium [Mass/Vol] 8.2 mg/dL Low 8.6-10.3 [facility] Comment on above: Performed By: #### E SR, CRP #### [facility] [address] [place] [address] [place] Chloride [Moles/Vol] 103 mmol/L Normal 98-107 [facility] Comment on above: Performed By: #### E SR, CRP #### [facility] [address] [place] [id number] [place] CO2 [Moles/Vol] 26.5 mmol/L Normal 21.0-31.0 [facility] Comment on above: Performed By: #### E SR, CRP #### [facility] [address] [place] [address] [place] Creatinine [Mass/Vol] 0.74 mg/dL Normal 0.60-1.20 [facility] [place] Comment on above: Performed By: #### E SR, CRP #### [facility] [address] [place] [address] [place] Creatinine Clr Calc Pharmacy 81.17 Normal [facility] [place] Comment on above: Result Comment: PERF ORMED BY: [place] [address] PATHOLOGIST ELEVATOR REPAIRER APPRENTICE FREDY PRICE M.D. Performed By: #### E SR, CRP #### [place] [address] [place] GFR/1.73 sq M.predicted MDRD (S/P/Bld) [Vol rate/Area] mL/min/{1.73_m2} Normal [facility] [place] Comment on above: Performed By: #### E SR, CRP #### [address] Glucose [Mass/Vol] 98 mg/dL Normal 70-100 [facility] Comment on above: Result Comment: [facility] Glucose Reference Range is dependent on time and content of last meal. Glucose of more than 200 mg/dL in a nonstressed, ambulatory subject supports the diagnosis of Diabetes Mellitus. ADA recommended reference range Performed By: #### E SR, CRP #### [facility] [address] [place] [address] [place] Potassium [Moles/Vol] 3.1 mmol/L Low 3.5-5.1 [facility] [place] Comment on above: Performed By: #### E SR, CRP #### [facility] [address] [place] [address] [place] Sodium [Moles/Vol] 138 mmol/L Normal 136-145 [facility] Comment on above: Performed By: #### E SR, CRP #### [facility] [address] [place] [address] [place] Urea nitrogen [Mass/Vol] 12 mg/dL Normal 7-25 [facility] [place] Comment on above: Performed By: #### E SR, CRP #### [facility] [address] [place] [address] [place] Complete Blood Count Auto Di ffon 03-27-2023 Basophils (Bld) [#/Vol] 0.2 10*3/uL Normal 0.0-0.2 [facility] [place] Comment on above: Result Comment: PERF ORMED BY: [place] [address] PATHOLOGIST ELEVATOR REPAIRER APPRENTICE FREDY PRICE M.D. Performed By: #### C BC, BMP #### [address] Basophils/100 WBC (Bld) 0.7 % Normal . [facility] [place] Comment on above: Performed By: #### C BC, BMP #### [address] Eosinophils (Bld) [#/Vol] 0.1 10*3/uL Normal 0.0-0.45 [facility] [place] Comment on above: Performed By: #### C BC, BMP #### [address] Eosinophils/100 WBC (Bld) 0.5 % Normal . [facility] [place] Comment on above: Performed By: #### C BC, BMP #### [address] Erythrocyte distribution width (RBC) [Ratio] 14.4 % Normal 11.9-15.3 [facility] [place] Comment on above: Performed By: #### C BC, BMP #### [address] Hematocrit (Bld) [Volume fraction] 35.0 % Normal 34.0-46.4 [facility] [place] Comment on above: Performed By: #### C BC, BMP #### [place] [address] [place] Hemoglobin (Bld) [Mass/Vol] 11.1 g/dL Low 11.8-15.4 [facility] [place] Comment on above: Performed By: #### C BC, BMP #### [place] [address] [place] Lymphocytes (Bld) [#/Vol] 0.8 10*3/uL Low 1.00-4.8 [facility] [place] Comment on above: Performed By: #### C BC, BMP #### [facility] [address] Lymphocytes/100 WBC (Bld) 3.4 % Normal . [facility] [place] Comment on above: Performed By: #### C BC, BMP #### [facility] [address] MCH (RBC) [Entitic mass] 26.8 pg Normal 24.7-34.3 [facility] [place] Comment on above: Performed By: #### C BC, BMP #### [facility] [address] MCV (RBC) [Entitic vol] 84.3 fL Normal 80-100 [facility] [place] Comment on above: Performed By: #### C BC, BMP #### [address] Mean Corpuscular HGB Conc 31.8 g/dL Low 32.0-35.0 [facility] [place] Comment on above: Performed By: #### C BC, BMP #### [place] [address] [place] Monocytes (Bld) [#/Vol] 1.1 10*3/uL High 0.0-0.8 [facility] [place] Comment on above: Performed By: #### C BC, BMP #### [place] [address] [place] Monocytes/100 WBC (Bld) 4.8 % Normal . [facility] Comment on above: Performed By: #### C BC, BMP #### [place] [address] [place] Neutrophils (Bld) [#/Vol] 21.6 10*3/uL High 1.8-7.7 [facility] [place] Comment on above: Performed By: #### C BC, BMP #### [address] Neutrophils/100 WBC (Bld) 90.6 % Normal . [facility] [place] Comment on above: Performed By: #### C BC, BMP #### [place] [address] [place] NRBC% 0.0 /100{WBC} Normal 0-0.5 [facility] Comment on above: Performed By: #### C DAVY, BMP #### [address] Platelet mean volume (Bld) [Entitic vol] 8.5 fL Normal 6.3-10.7 [facility] [place] Comment on above: Performed By: #### C DAVY, BMP #### [address] Platelets (Bld) [#/Vol] 319 10*3/uL Normal 150-450 [facility] [place] Comment on above: Performed By: #### C DAVY, BMP #### [address] RBC (Bld) [#/Vol] 4.15 10*6/uL Normal 3.60-5.00 [facility] Comment on above: Performed By: #### C DAVY, BMP #### [address] WBC (Bld) [#/Vol] 23.9 10*3/uL High 3.8-11.6 [facility] Comment on above: Performed By: #### C DAVY, BMP #### [address] Basic Metabolic Panelon 05- Anion gap [Moles/Vol] 11.4 mmol/L Normal 6.0-15.0 [facility] Comment on above: Performed By: #### E SR, CRP #### [address] Calcium [Mass/Vol] 8.2 mg/dL Low 8.6-10.3 [facility] Comment on above: Performed By: #### E SR, CRP #### [address] Chloride [Moles/Vol] 106 mmol/L Normal 98-107 [facility] Comment on above: Performed By: #### E SR, CRP #### [facility] [address] [place] [address] [place] CO2 [Moles/Vol] 24.9 mmol/L Normal 21.0-31.0 [facility] Comment on above: Performed By: #### E SR, CRP #### [facility] [address] Creatinine [Mass/Vol] 0.77 mg/dL Normal 0.60-1.20 [facility] Comment on above: Performed By: #### E SR, CRP #### [facility] [address] [place] [address] [place] Creatinine Clr Calc Pharmacy 77.65 Normal [facility] [place] Comment on above: Result Comment: PERF ORMED BY: [place] [address] PATHOLOGIST ELEVATOR REPAIRER APPRENTICE FREDY PRICE M.D. Performed By: #### E SR, CRP #### [facility] [address] [place] [address] [place] GFR/1.73 sq M.predicted MDRD (S/P/Bld) [Vol rate/Area] mL/min/{1.73_m2} Normal [facility] [place] Comment on above: Performed By: #### E SR, CRP #### [facility] [address] [place] [address] [place] Glucose [Mass/Vol] 83 mg/dL Normal 70-100 [facility] Comment on above: Result Comment: [place] Glucose Reference Range is dependent on time and content of last meal. Glucose of more than 200 mg/dL in a nonstressed, ambulatory subject supports the diagnosis of Diabetes Mellitus. ADA recommended reference range Performed By: #### E SR, CRP #### [facility] [address] [place] [address] [place] Potassium [Moles/Vol] 3.3 mmol/L Low 3.5-5.1 [facility] Comment on above: Performed By: #### E SR, CRP #### [facility] [address] [place] [address] [place] Sodium [Moles/Vol] 139 mmol/L Normal 136-145 [facility] Comment on above: Performed By: #### E SR, CRP #### [address] Urea nitrogen [Mass/Vol] 20 mg/dL Normal 7-25 [facility] Comment on above: Performed By: #### E SR, CRP #### [address] C-Reactive Proteinon 023 C-Reactive Protein 28.9 mg/dL High 0.0-0.5 [facility] Comment on above: Result Comment: PERF ORMED BY: [place] [id number] PATHOLOGIST ELEVATOR REPAIRER APPRENTICE FREDY PRICE M.D. Performed By: #### C RP, ESR #### [address] CBC AUTO DIFFon 03-26-2023 Basophils/100 WBC (Bld) 0.2 % Normal . [facility] Comment on above: Performed By: #### S EDR #### [facility] [address] [address] [address] Virgil Purdy Performed By: #### E SR, CRP #### [address] Erythrocyte distribution width (RBC) [Ratio] 14.5 % Normal 11.9-15.3 [facility] Comment on above: Performed By: #### S EDR #### [facility] [address] [address] [address] Virgil Purdy Performed By: #### E SR, CRP #### [facility] [address] [place] [address] [place] BASO # 0.0 103/ul Normal 0.0-0.1 [facility] Comment on above: Performed By: #### S EDR #### [facility] [address] [address] [address] Virgil Purdy EO # 0.1 103/ul Normal 0.0-0.7 [facility] Comment on above: Performed By: #### S EDR #### [facility] [address] [address] [address] Virgil Purdy Eosinophils/100 WBC (Bld) 0.3 % Critically low 0.9-7.0 [facility] Comment on above: Performed By: #### S EDR #### [facility] [address] [address] [address] Virgil Purdy Hematocrit (Bld) [Volume fraction] 31.0 % Critically low 36.0-48.0 [facility] Comment on above: Performed By: #### S EDR #### [facility] [address] [place] [address] Dr. Virgil Purdy Hemoglobin (Bld) [Mass/Vol] 10.2 g/dL Critically low 12.0-16.0 [facility] Comment on above: Performed By: #### S EDR #### [facility] [address] [place] [address] Dr. Virgil Purdy IG # 0.42 10e3/ul Critically high 0.00-0.03 [facility] Comment on above: Performed By: #### S EDR #### [facility] [address] [place] [address] Dr. Virgil Purdy IG % 2.4 % Critically high 0.0-0.5 [facility] Comment on above: Performed By: #### S EDR #### [facility] [address] [place] [address] Dr. Virgil Purdy LYMPH # 0.9 103/ul Critically low 1.2-3.8 [facility] Comment on above: Performed By: #### S EDR #### [facility] [address] [place] [address] Dr. Virgil Purdy Lymphocytes/100 WBC (Bld) 5.0 % Critically low 20.5-60.0 [facility] Comment on above: Performed By: #### S EDR #### [facility] [address] [place] [address] Dr. Virgil Purdy MANUAL DIFF REQ NO Normal [facility] Comment on above: Performed By: #### S EDR #### [facility] [address] [address] [address] Virgil Purdy MCH (RBC) [Entitic mass] 27.9 pg Normal 26.7-34.0 [facility] Comment on above: Performed By: #### S EDR #### [facility] [address] [address] [address] Virgil Purdy MCHC (RBC) [Mass/Vol] 32.9 g/dL Normal 29.9-35.2 [facility] Comment on above: Performed By: #### S EDR #### [facility] [address] [address] [address] Virgil Purdy MCV (RBC) [Entitic vol] 84.9 fL Normal 81.0-99.0 [facility] Comment on above: Performed By: #### S EDR #### [facility] [address] [place] [address] Dr. Virgil Purdy MONO # 1.1 103/ul Critically high 0.3-0.8 [facility] Comment on above: Performed By: #### S EDR #### [facility] [address] [address] [address] Virgil Purdy Monocytes/100 WBC (Bld) 6.4 % Normal 1.7-12.0 [facility] Comment on above: Performed By: #### S EDR #### [facility] [address] [place] [address] Dr. Virgil Purdy NEUT # 15.1 103/ul Critically high 1.4-6.5 [facility] Comment on above: Performed By: #### S EDR #### [facility] [address] [place] [address] Dr. Virgil Purdy Neutrophils/100 WBC (Bld) 85.7 % Critically high 43.0-75.0 [facility] Comment on above: Performed By: #### S EDR #### [facility] [address] [place] [address] Dr. Virgil Purdy Platelet mean volume (Bld) [Entitic vol] 11.2 fL Normal 9.5-13.5 [facility] Comment on above: Performed By: #### S EDR #### [facility] [address] [address] [address] Virgil Purdy PLT 244 103/ul Normal 150-450 [facility] Comment on above: Performed By: #### S EDR #### [facility] [address] [address] [address] Virgil Purdy RBC 3.65 106/ul Critically low 4.20-5.40 [facility] Comment on above: Performed By: #### S EDR #### [facility] [address] [address] [address] Virgil Purdy WBC 17.7 103/ul Critically high 4.0-11.0 [facility] Comment on above: Performed By: #### S EDR #### [facility] [address] [address] [address] Virgil Purdy CRPon 03-26-2023 CRP 53.8 mg/dL Critically high <=1.0 [facility] Comment on above: Performed By: #### P T #### [facility] [address] [address] [address] Virgil Purdy Complete Blood Count Auto Di ffon 03-26-2023 Basophils (Bld) [#/Vol] 0.0 10*3/uL Normal 0.0-0.2 [facility] Comment on above: Result Comment: PERF ORMED BY: [place] [address] PATHOLOGIST ELEVATOR REPAIRER APPRENTICE FREDY PRICE M.D. Performed By: #### E SR, CRP #### [facility] [address] [place] [address] [place] Eosinophils (Bld) [#/Vol] 0.1 10*3/uL Normal 0.0-0.45 [facility] Comment on above: Performed By: #### E SR, CRP #### [facility] [address] [place] [address] [place] Eosinophils/100 WBC (Bld) 0.5 % Normal . [facility] Comment on above: Performed By: #### E SR, CRP #### [facility] [address] Hematocrit (Bld) [Volume fraction] 36.2 % Normal 34.0-46.4 [facility] Comment on above: Performed By: #### E SR, CRP #### [facility] [address] Hemoglobin (Bld) [Mass/Vol] 11.5 g/dL Low 11.8-15.4 [facility] Comment on above: Performed By: #### E SR, CRP #### [facility] [address] [place] [address] [place] Lymphocytes (Bld) [#/Vol] 0.9 10*3/uL Low 1.00-4.8 [facility] Comment on above: Performed By: #### E SR, CRP #### [address] Lymphocytes/100 WBC (Bld) 4.2 % Normal . [facility] Comment on above: Performed By: #### E SR, CRP #### [facility] [address] [place] [address] [place] MCH (RBC) [Entitic mass] 27.0 pg Normal 24.7-34.3 [facility] Comment on above: Performed By: #### E SR, CRP #### [facility] [address] [place] [address] [place] MCV (RBC) [Entitic vol] 85.2 fL Normal 80-100 [facility] Comment on above: Performed By: #### E SR, CRP #### [facility] [address] [place] [address] Mean Corpuscular HGB Conc 31.7 g/dL Low 32.0-35.0 [facility] Comment on above: Performed By: #### E SR, CRP #### [facility] [address] [place] [address] [place] Monocytes (Bld) [#/Vol] 1.0 10*3/uL High 0.0-0.8 [facility] Comment on above: Performed By: #### E SR, CRP #### [facility] [address] [id number] [place] Monocytes/100 WBC (Bld) 4.7 % Normal . [facility] Comment on above: Performed By: #### E SR, CRP #### [facility] [address] [place] [address] [place] Neutrophils (Bld) [#/Vol] 18.6 10*3/uL High 1.8-7.7 [facility] Comment on above: Performed By: #### E SR, CRP #### [facility] [address] Neutrophils/100 WBC (Bld) 90.4 % Normal . [facility] Comment on above: Performed By: #### E SR, CRP #### [facility] [address] NRBC% 0.1 /100{WBC} Normal 0-0.5 [facility] Comment on above: Performed By: #### E SR, CRP #### [facility] [address] [place] [address] [place] Platelet mean volume (Bld) [Entitic vol] 8.7 fL Normal 6.3-10.7 [facility] Comment on above: Performed By: #### E SR, CRP #### [facility] [address] [place] [address] [place] Platelets (Bld) [#/Vol] 282 10*3/uL Normal 150-450 [facility] Comment on above: Performed By: #### E SR, CRP #### [facility] [address] [place] [address] [place] RBC (Bld) [#/Vol] 4.25 10*6/uL Normal 3.60-5.00 [facility] Comment on above: Performed By: #### E SR, CRP #### [facility] [address] [place] [address] [place] WBC (Bld) [#/Vol] 20.6 10*3/uL High 3.8-11.6 [facility] Comment on above: Performed By: #### E SR, CRP #### [facility] [address] Erythrocyte Sedimentation Ra charisma 03-26-2023 ESR (Bld) [Velocity] 84 mm/h High 0-29 [facility] Comment on above: Result Comment: PERF ORMED BY: [place] [address] PATHOLOGIST ELEVATOR REPAIRER APPRENTICE FREDY PRICE M.D. Performed By: #### C RP, ESR #### [address] Lactic Acidon 03-26-2023 Lactate [Moles/Vol] 1.8 mmol/L Normal 0.5-2.2 [facility] Comment on above: Result Comment: PERF ORMED BY: [place] [address] PATHOLOGIST ELEVATOR REPAIRER APPRENTICE FREDY PRICE M.D. Performed By: #### E SR, CRP #### [address] OCC BLD IMMUNO SCREENon 03-16 OCCULT BLOOD Negative Normal NEGATIVE [facility] Comment on above: Performed By: #### S EDR #### [facility] [address] [place] [address] Dr. Virgil Purdy PROF 14(COMP METB)on 023 Albumin [Mass/Vol] 1.6 g/dL Critically low 3.4-5.[address] [facility] Comment on above: Performed By: #### P T #### [facility] [address] [address] [address] Virgil Purdy Albumin/Globulin [Mass ratio] 0.4 {ratio} Normal [facility] Comment on above: Performed By: #### P T #### [facility] [address] [address] [address] Virgil Purdy ALP [Catalytic activity/Vol] 76 U/L Normal 46-116 [facility] Comment on above: Performed By: #### P T #### [facility] [address] [place] [address] Dr. Virgil Purdy ALT [Catalytic activity/Vol] 14 U/L Normal 14-59 [facility] Comment on above: Performed By: #### P T #### [facility] [address] [place] [address] Dr. Virgil Purdy Anion gap [Moles/Vol] 12.6 mmol/L Normal [facility] Comment on above: Performed By: #### P T #### [facility] [address] [place] [address] Dr. Virgil Purdy AST [Catalytic activity/Vol] 20 U/L Normal 15-37 [facility] Comment on above: Performed By: #### P T #### [facility] [address] [place] [address] Dr. Virgil Purdy Bilirubin [Mass/Vol] 0.4 mg/dL Normal 0.2-1.0 [facility] Comment on above: Performed By: #### P T #### [facility] [address] [place] [address] Dr. Virgil Purdy Calcium [Mass/Vol] 8.1 mg/dL Critically low 8.5-10.[address] [facility] Comment on above: Performed By: #### P T #### [facility] [address] [place] [address] Dr. Virgil Purdy Chloride [Moles/Vol] 105 mmol/L Normal 98-107 [facility] Comment on above: Performed By: #### P T #### [facility] [address] [place] [address] Dr. Virgil Purdy CO2 [Moles/Vol] 22.9 mmol/L Normal 21.0-32.0 [facility] Comment on above: Performed By: #### P T #### [facility] [address] [place] [address] Dr. Virgil Purdy Creatinine [Mass/Vol] 1.14 mg/dL Critically high 0.55-1.02 [facility] Comment on above: Performed By: #### P T #### [facility] [address] [place] [address] Dr. Virgil Purdy EGFR-AF SAUDI ARABIAN 60 mL/min/1.73m2 Normal >=[address] [facility] Comment on above: Performed By: #### P T #### [facility] [address] [address] [address] Virgil Purdy EGFR-NON AF SAUDI ARABIAN 49 mL/min/1.73m2 Critically low >=60 [facility] Comment on above: Performed By: #### P T #### [facility] [address] [address] [address] Virgil Purdy Globulin (S) [Mass/Vol] 4.1 g/dL Normal [facility] Comment on above: Performed By: #### P T #### [facility] [address] [address] [address] Virgil Purdy Glucose [Mass/Vol] 112 mg/dL Critically high 74-106 [facility] Comment on above: Performed By: #### P T #### [facility] [address] [address] [address] Virgil Purdy Potassium [Moles/Vol] 3.5 mmol/L Normal 3.5-5.1 [facility] Comment on above: Performed By: #### P T #### [facility] [address] [address] [address] Virgil Purdy Protein [Mass/Vol] 5.7 g/dL Critically low 6.4-8.[address] [facility] Comment on above: Performed By: #### P T #### [facility] [address] [address] [address] Virgil Purdy Sodium [Moles/Vol] 137 mmol/L Normal 136-145 [facility] Comment on above: Performed By: #### P T #### [facility] [address] [address] [address] Virgil Purdy Urea nitrogen [Mass/Vol] 26.0 mg/dL Critically high 7.0-18.0 [facility] Comment on above: Performed By: #### P T #### [facility] [address] [address] [address] Virgil Purdy Urea nitrogen/Creatinine [Mass ratio] 22.8 mg/mg Normal [facility] Comment on above: Performed By: #### P T #### [facility] [address] [place] [address] Dr. Virgil Purdy PTT HEPARIN MONITORon 2022 aPTT Coag (Bld) [Time] 40.4 s Normal 39.5-54.2 [facility] Comment on above: Performed By: #### S EDR #### [facility] [address] [place] [address] Dr. Virgil Purdy aPTT Coag (Bld) [Time] 37.9 s Critically low 39.5-54.2 [facility] Comment on above: Performed By: #### P T #### [facility] [address] [place] [address] Dr. Virgil Purdy SED RATE WESTERGRENon 2022 SED RATE 103 mm/hr Critically high <=30 [facility] Comment on above: Performed By: #### S EDR #### [facility] [address] [place] [address] Dr. Virgil Purdy CBC AUTO DIFFon 03-25-2023 BASO # 0.1 103/ul Normal 0.0-0.1 [facility] Comment on above: Performed By: #### C BC #### [facility] [address] [place] [address] Dr. Virgil Purdy Basophils/100 WBC (Bld) 0.3 % Normal 0.2-2.0 [facility] Comment on above: Performed By: #### C BC #### [facility] [address] [place] [address] Dr. Virgil Purdy EO # 0.0 103/ul Normal 0.0-0.7 [facility] Comment on above: Performed By: #### C BC #### [facility] [address] [place] [address] Dr. Virgil Purdy Eosinophils/100 WBC (Bld) 0.1 % Critically low 0.9-7.0 [facility] Comment on above: Performed By: #### C BC #### [facility] [address] [place] [address] Dr. Virgil Purdy Erythrocyte distribution width (RBC) [Ratio] 14.1 % Normal 11.0-15.0 [facility] Comment on above: Performed By: #### C BC #### [facility] [address] [place] [address] Dr. Virgil Purdy Hematocrit (Bld) [Volume fraction] 35.4 % Critically low 36.0-48.0 [facility] Comment on above: Performed By: #### C BC #### [facility] [address] [place] [address] Dr. Virgil Purdy Hemoglobin (Bld) [Mass/Vol] 11.5 g/dL Critically low 12.0-16.0 [facility] Comment on above: Performed By: #### C BC #### [facility] [address] [place] [address] Dr. Virgil Purdy IG # 0.14 10e3/ul Critically high 0.00-0.03 [facility] Comment on above: Performed By: #### C BC #### [facility] [address] [place] [address] Dr. Virgil Purdy IG % 0.7 % Critically high 0.0-0.5 [facility] Comment on above: Performed By: #### C BC #### [facility] [address] [place] [address] Dr. Virgil Purdy LYMPH # 0.6 103/ul Critically low 1.2-3.8 [facility] Comment on above: Performed By: #### C BC #### [facility] [address] [place] [address] Dr. Virgil Purdy Lymphocytes/100 WBC (Bld) 3.2 % Critically low 20.5-60.0 [facility] Comment on above: Performed By: #### C BC #### [facility] [address] [place] [address] Dr. Virgil Purdy MANUAL DIFF REQ NO Normal [facility] Comment on above: Performed By: #### C BC #### [facility] [address] [address] [address] Virgil Purdy MCH (RBC) [Entitic mass] 28.3 pg Normal 26.7-34.0 [facility] Comment on above: Performed By: #### C BC #### [facility] [address] [place] [address] Dr. Virgil Purdy MCHC (RBC) [Mass/Vol] 32.5 g/dL Normal 29.9-35.2 [facility] Comment on above: Performed By: #### C BC #### [facility] [address] [place] [address] Dr. Virgil Purdy MCV (RBC) [Entitic vol] 87.2 fL Normal 81.0-99.0 [facility] Comment on above: Performed By: #### C BC #### [facility] [address] [place] [address] Dr. Virgil Purdy MONO # 1.2 103/ul Critically high 0.3-0.8 [facility] Comment on above: Performed By: #### C BC #### [facility] [address] [place] [address] Dr. Virgil Purdy Monocytes/100 WBC (Bld) 6.3 % Normal 1.7-12.0 [facility] Comment on above: Performed By: #### C BC #### [facility] [address] [place] [address] Dr. Virgil Purdy NEUT # 17.5 103/ul Critically high 1.4-6.5 [facility] Comment on above: Performed By: #### C BC #### [facility] [address] [place] [address] Dr. Virgil Purdy Neutrophils/100 WBC (Bld) 89.4 % Critically high 43.0-75.0 [facility] Comment on above: Performed By: #### C BC #### [facility] [address] [place] [address] Dr. Virgil Purdy Platelet mean volume (Bld) [Entitic vol] 11.5 fL Normal 9.5-13.5 [facility] Comment on above: Performed By: #### C BC #### [facility] [address] [place] [address] Dr. Virgil Purdy PLT 224 103/ul Normal 150-450 [facility] Comment on above: Performed By: #### C BC #### [facility] [address] [place] [address] Dr. Virgil Purdy RBC 4.06 106/ul Critically low 4.20-5.40 [facility] Comment on above: Performed By: #### C BC #### [facility] [address] [place] [address] Dr. Virgil Purdy WBC 19.6 103/ul Critically high 4.0-11.0 [facility] Comment on above: Performed By: #### C BC #### [facility] [address] [place] [address] Dr. Virgil Purdy CBC W MANUAL DIFFon 03-25-20 23 ATYPICAL LYMPH # Normal [facility] Comment on above: Performed By: #### C BCMAN #### [facility] [address] [place] [address] Dr. Virgil Purdy ATYPICAL LYMPH % Normal [facility] Comment on above: Performed By: #### C BCMAN #### [facility] [address] [place] [address] Dr. Virgil Purdy BAND # Normal 0.0-0.3 [facility] Comment on above: Performed By: #### C BCMAN #### [facility] [address] [place] [address] Dr. Virgil Purdy BAND % Normal 0-5 The [facility] Comment on above: Performed By: #### C BCMAN #### [facility] [address] [place] [address] Dr. Virgil Purdy BASOM # 0.00 103/ul Normal 0.00-0.10 The [facility] Comment on above: Performed By: #### C BCMAN #### [facility] [address] [place] [address] Dr. Virgil Purdy BASOM % 0.0 % Critically low 0.2-2.0 The [facility] Comment on above: Performed By: #### C BCMAN #### [facility] [address] [address] [address] Virgil Purdy BLAST # Normal [facility] Comment on above: Performed By: #### C BCMAN #### [facility] [address] [place] [address] Dr. Virgil Purdy BLAST % Normal [facility] Comment on above: Performed By: #### C BCMAN #### [facility] [address] [address] [address] Virgil Purdy CORRECTED WBC Normal 4.0-11.0 [facility] Comment on above: Performed By: #### C BCMAN #### [facility] [address] [place] [address] Dr. Virgil Purdy EOS # 0.00 103/ul Normal 0.00-0.70 [facility] Comment on above: Performed By: #### C BCDARIUS #### [facility] [address] [place] [address] Dr. Virgil Purdy EOS% 0.0 % Critically low 0.9-7.0 [facility] Comment on above: Performed By: #### C BCDARIUS #### [facility] [address] [place] [address] Dr. Virgil Purdy HCT 33.7 % Critically low 36.0-48.0 [facility] Comment on above: Performed By: #### C BCDARIUS #### [facility] [address] [place] [address] Dr. Virgil Purdy HGB 11.0 g/dl Critically low 12.0-16.0 [facility] Comment on above: Performed By: #### C BCMAN #### [facility] [address] [place] [address] Dr. Virgil Purdy LYMPHM # 1.10 103/ul Critically low 1.20-3.80 [facility] Comment on above: Performed By: #### C BCMAN #### [facility] [address] [place] [address] Dr. Virgil Purdy LYMPHM% 6.0 % Critically low 20.5-60.0 [facility] Comment on above: Performed By: #### C GERSON #### [facility] [address] [place] [address] Dr. Virgil Purdy MCH 27.8 pg Normal 26.7-34.0 The [facility] Comment on above: Performed By: #### C GERSON #### [facility] [address] [place] [address] Dr. Virgil Purdy MCHC 32.6 g/dl Normal 29.9-35.2 The [facility] Comment on above: Performed By: #### C GERSON #### [facility] [address] [place] [address] Dr. Virgil Purdy MCV 85.1 fL Normal 81.0-99.0 [facility] Comment on above: Performed By: #### C GERSON #### [facility] [address] [place] [address] Dr. Virgil Purdy METAMYELOCYTE # Normal [facility] Comment on above: Performed By: #### C GERSON #### [facility] [address] [place] [address] Dr. Virgil Purdy METAMYELOCYTE % Normal [facility] Comment on above: Performed By: #### C GERSON #### [facility] [address] [place] [address] Dr. Virgil Purdy MONOM# 0.73 103/ul Normal 0.30-0.80 The [facility] Comment on above: Performed By: #### C GERSON #### [facility] [address] [place] [address] Dr. Virgil Purdy MONOM% 4.0 % Normal 1.7-12.0 The [facility] Comment on above: Performed By: #### C GERSON #### [facility] [address] [place] [address] Dr. Virgil Purdy MPV 11.1 fL Normal 9.5-13.5 [facility] Comment on above: Performed By: #### C GERSON #### [facility] [address] [place] [address] Dr. Virgil Purdy MYELOCYTE # Normal [facility] Comment on above: Performed By: #### C GERSON #### [facility] [address] [address] [address] Virgil Purdy MYELOCYTE % Normal [facility] Comment on above: Performed By: #### C GERSON #### [facility] [address] [address] [address] Virgil Purdy NRBC Normal [facility] Comment on above: Performed By: #### C GERSON #### [facility] [address] [address] [address] Virgil Purdy PLT 230 103/ul Normal 150-450 [facility] Comment on above: Performed By: #### C GERSON #### [facility] [address] [address] [address] Virgil Purdy RBC 3.96 106/ul Critically low 4.20-5.40 [facility] Comment on above: Performed By: #### C GERSON #### [facility] [address] [address] [address] Virgil Purdy RDW 14.0 % Normal 11.0-15.0 [facility] Comment on above: Performed By: #### C GERSON #### [facility] [address] [place] [address] Dr. Virgil Purdy SEG # 16.47 103/ul Critically high 1.40-6.50 [facility] Comment on above: Performed By: #### C GERSON #### [facility] [address] [address] [address] Virgil Purdy SEG % 90.0 % Critically high 43.0-75.0 [facility] Comment on above: Result Comment: vacu oles seen Performed By: #### C GERSON #### [facility] [address] [place] [address] Dr. Virgil Purdy WBC 18.3 103/ul Critically high 4.0-11.0 [facility] Comment on above: Performed By: #### C GERSON #### [facility] [address] [place] [address] Dr. Virgil Purdy CRPon 03-25-2023 CRP [Mass/Vol] mg/L Critically high <=1.0 [facility] Comment on above: Performed By: #### S EDR #### [facility] [address] [address] [address] Virgil Purdy CULTURE BLOODon 03-25-2023 Microscopic examination of blood, culture Culture Observations: NO GROWTH AT 5 DAYS. Normal [facility] Comment on above: Performed By: #### L ACT #### [facility] [address] [address] [address] Virgil Purdy Microscopic examination of blood, culture Culture Observations: NO GROWTH AT 5 DAYS. [facility] Comment on above: Performed By: #### L ACT #### [facility] [address] [address] [address] Virgil Purdy ECHOCARDIO M/2D COMPLETEon 0 03-25-2023 ECHOCARDIO M/2D COMPLETE Patient Name Site Name LAURA TYLER [facility] Account No Medical Record Number Age Sex Date Time [id number] [facility]:[id number] F 03/25/2023 11:25 At the Request [...] Manuel M.D. on 03/25/2023 at 18:19 Normal [facility] PROF 14(COMP METB)on 023 Albumin [Mass/Vol] 1.9 g/dL Critically low 3.4-5.0 Th e [facility] Comment on above: Performed By: #### S EDR #### [facility] [address] [address] [address] Virgil Purdy Albumin/Globulin [Mass ratio] 0.4 {ratio} Normal [facility] Comment on above: Performed By: #### S EDR #### [facility] [address] [place] [address] Dr. Virgil Purdy ALP [Catalytic activity/Vol] 77 U/L Normal 46-116 [facility] Comment on above: Performed By: #### S EDR #### [facility] [address] [address] [address] Virgil Purdy ALT [Catalytic activity/Vol] 14 U/L Normal 14-59 [facility] Comment on above: Performed By: #### S EDR #### [facility] [address] [address] [address] Virgil Purdy Anion gap [Moles/Vol] 13.0 mmol/L Normal [facility] Comment on above: Performed By: #### S EDR #### [facility] [address] [address] [address] Virgil Purdy AST [Catalytic activity/Vol] 11 U/L Critically low 15-37 [facility] Comment on above: Performed By: #### S EDR #### [facility] [address] [address] [address] Virgil Purdy Bilirubin [Mass/Vol] 0.5 mg/dL Normal 0.2-1.0 [facility] Comment on above: Performed By: #### S EDR #### [facility] [address] [address] [address] Virgil Purdy Calcium [Mass/Vol] 8.7 mg/dL Normal 8.5-10.1 [facility] Comment on above: Performed By: #### S EDR #### [facility] [address] [address] [address] Virgil Purdy Chloride [Moles/Vol] 100 mmol/L Normal 98-107 The [facility] Comment on above: Performed By: #### S EDR #### [facility] [address] [address] [address] Virgil Purdy CO2 [Moles/Vol] 24.3 mmol/L Normal 21.0-32.0 [facility] Comment on above: Performed By: #### S EDR #### [facility] [address] [address] [address] Virgil Purdy Creatinine [Mass/Vol] 1.18 mg/dL Critically high 0.55-1.02 [facility] Comment on above: Performed By: #### S EDR #### [facility] [address] [address] [address] Virgil Purdy EGFR-AF SAUDI ARABIAN 58 mL/min/1.73m2 Critically low >=60 [facility] Comment on above: Performed By: #### S EDR #### [facility] [address] [address] [address] Virgil Purdy EGFR-NON AF SAUDI ARABIAN 48 mL/min/1.73m2 Critically low >=60 The [facility] Comment on above: Performed By: #### S EDR #### [facility] [address] [address] [address] Virgil Purdy Globulin (S) [Mass/Vol] 4.3 g/dL Normal [facility] Comment on above: Performed By: #### S EDR #### [facility] [address] [address] [address] Virgil Purdy Glucose [Mass/Vol] 92 mg/dL Normal 74-106 [facility] Comment on above: Performed By: #### S EDR #### [facility] [address] [address] [address] Virgil Purdy Potassium [Moles/Vol] 3.3 mmol/L Critically low 3.5-5.1 [facility] Comment on above: Performed By: #### S EDR #### [facility] [address] [place] [address] Dr. Virgil Purdy Protein [Mass/Vol] 6.2 g/dL Critically low 6.4-8.[address] [facility] Comment on above: Performed By: #### S EDR #### [facility] [address] [place] [address] Dr. Virgil Purdy Sodium [Moles/Vol] 134 mmol/L Critically low 136-[address] [facility] Comment on above: Performed By: #### S EDR #### [facility] [address] [place] [address] Dr. Virgil Purdy Urea nitrogen [Mass/Vol] 25.0 mg/dL Critically high 7.0-18.0 [facility] Comment on above: Performed By: #### S EDR #### [facility] [address] [place] [address] Dr. Virgil Purdy Urea nitrogen/Creatinine [Mass ratio] 21.2 mg/mg Normal [facility] Comment on above: Performed By: #### S EDR #### [facility] [address] [place] [address] Dr. Virgil Purdy PROTIMEon 03-25-2023 INR Coag (PPP) [Relative time] 0.96 {INR} Normal [facility] Comment on above: Performed By: #### P T #### [facility] [address] [place] [address] Dr. Virgil Purdy INR GUIDELINES SEE BELOW Normal [facility] Comment on above: Result Comment: CORAOZN RED INR: 2.0 - 3.0 CONDITIONS NOT LISTED BELOW 2.5 - 3.5 FOR PROSTHETIC HEART VALVE REPLACEMENT 2.5 - 3.5 RECURRENT THROMBOSIS Performed By: #### P T #### [facility] [address] [place] [address] Dr. Virgil Purdy PT Coag (PPP) [Time] 10.2 s Normal 9.0-11.6 The [facility] Comment on above: Performed By: #### P T #### [facility] [address] [place] [address] Dr. Virgil Purdy PTT HEPARIN MONITORon 2022 aPTT Coag (Bld) [Time] 38.5 s Critically low 39.5-54.2 [facility] Comment on above: Performed By: #### P T #### [facility] [address] [place] [address] Dr. Virgil Purdy aPTT Coag (Bld) [Time] 41.3 s Normal 39.5-54.2 [facility] Comment on above: Performed By: #### L ACT #### [facility] [address] [place] [address] Dr. Virgil Purdy aPTT Coag (Bld) [Time] 41.0 s Normal 39.5-54.2 [facility] Comment on above: Performed By: #### P TTHEP #### [facility] [address] [place] [address] Dr. Virgil Purdy SED RATE WESTERGRENon 2022 SED RATE 82 mm/hr Critically high <=30 [facility] Comment on above: Performed By: #### S EDR #### [facility] [address] [place] [address] Dr. Virgil Purdy US EXT NON VASC [...] AC LOVING Date: 2023-03-25 10:20 Normal [facility] CBC W MANUAL DIFFon 03-24-20 23 ATYPICAL LYMPH # Normal [facility] Comment on above: Performed By: #### S EDR #### [facility] [address] [address] [address] Virgil Purdy ATYPICAL LYMPH % Normal [facility] Comment on above: Performed By: #### S EDR #### [facility] [address] [place] [address] Dr. Virgil Purdy BAND # 1.6 103/ul Critically high 0.0-0.3 [facility] Comment on above: Performed By: #### S EDR #### [facility] [address] [place] [address] Dr. Virgil Purdy BAND % 8 % Critically high 0-5 [facility] Comment on above: Performed By: #### S EDR #### [facility] [address] [place] [address] Dr. Virgil Purdy BASOM # 0.00 103/ul Normal 0.00-0.10 [facility] Comment on above: Performed By: #### S EDR #### [facility] [address] [place] [address] Dr. Virgil Purdy BASOM % 0.0 % Critically low 0.2-2.0 [facility] Comment on above: Performed By: #### S EDR #### [facility] [address] [place] [address] Dr. Virgil Purdy BLAST # Normal [facility] Comment on above: Performed By: #### S EDR #### [facility] [address] [place] [address] Dr. Virgil Purdy BLAST % Normal [facility] Comment on above: Performed By: #### S EDR #### [facility] [address] [place] [address] Dr. Virgil Purdy CORRECTED WBC Normal 4.0-11.0 [facility] Comment on above: Performed By: #### S EDR #### [facility] [address] [place] [address] Dr. Virgil Purdy EOS # 0.19 103/ul Normal 0.00-0.70 [facility] Comment on above: Performed By: #### S EDR #### [facility] [address] [place] [address] Dr. Virgil Purdy EOS% 1.0 % Normal 0.9-7.0 [facility] Comment on above: Performed By: #### S EDR #### [facility] [address] [place] [address] Dr. Virgil Purdy HCT 43.4 % Normal 36.0-48.0 [facility] Comment on above: Performed By: #### S EDR #### [facility] [address] [place] [address] Dr. Virgil Purdy HGB 14.5 g/dl Normal 12.0-16.0 [facility] Comment on above: Performed By: #### S EDR #### [facility] [address] [place] [address] Dr. Virgil Purdy LYMPHM # 1.36 103/ul Normal 1.20-3.80 [facility] Comment on above: Performed By: #### S EDR #### [facility] [address] [place] [address] Dr. Virgil Purdy LYMPHM% 7.0 % Critically low 20.5-60.0 [facility] Comment on above: Performed By: #### S EDR #### [facility] [address] [place] [address] Dr. Virgil Purdy MCH 28.0 pg Normal 26.7-34.0 [facility] Comment on above: Performed By: #### S EDR #### [facility] [address] [place] [address] Dr. Virgil Purdy MCHC 33.4 g/dl Normal 29.9-35.2 [facility] Comment on above: Performed By: #### S EDR #### [facility] [address] [place] [address] Dr. Virgil Purdy MCV 83.9 fL Normal 81.0-99.0 [facility] Comment on above: Performed By: #### S EDR #### [facility] [address] [place] [address] Dr. Virgil Purdy METAMYELOCYTE # Normal [facility] Comment on above: Performed By: #### S EDR #### [facility] [address] [place] [address] Dr. Virgil Purdy METAMYELOCYTE % Normal [facility] Comment on above: Performed By: #### S EDR #### [facility] [address] [place] [address] Dr. Virgil Purdy MONOM# 0.58 103/ul Normal 0.30-0.80 [facility] Comment on above: Performed By: #### S EDR #### [facility] [address] [place] [address] Dr. Virgil Purdy MONOM% 3.0 % Normal 1.7-12.0 [facility] Comment on above: Performed By: #### S EDR #### [facility] [address] [place] [address] Dr. Virgil Purdy MPV 11.1 fL Normal 9.5-13.5 [facility] Comment on above: Performed By: #### S EDR #### [facility] [address] [place] [address] Dr. Virgil Purdy MYELOCYTE # Normal [facility] Comment on above: Performed By: #### S EDR #### [facility] [address] [place] [address] Dr. Virgil Purdy MYELOCYTE % Normal [facility] Comment on above: Performed By: #### S EDR #### [facility] [address] [place] [address] Dr. Virgil Purdy NRBC Normal [facility] Comment on above: Performed By: #### S EDR #### [facility] [address] [place] [address] Dr. Virgil Purdy PLT 238 103/ul Normal 150-450 [facility] Comment on above: Performed By: #### S EDR #### [facility] [address] [place] [address] Dr. Virgil Purdy RBC 5.17 106/ul Normal 4.20-5.40 [facility] Comment on above: Performed By: #### S EDR #### [facility] [address] [address] [address] Virgil Purdy RDW 13.7 % Normal 11.0-15.0 [facility] Comment on above: Performed By: #### S EDR #### [facility] [address] [address] [address] Virgil Purdy SEG # 15.71 103/ul Critically high 1.40-6.50 [facility] Comment on above: Performed By: #### S EDR #### [facility] [address] [address] [address] Virgil Purdy SEG % 81.0 % Critically high 43.0-75.0 [facility] Comment on above: Performed By: #### S EDR #### [facility] [address] [place] [address] Dr. Virgil Purdy WBC 19.4 103/ul Critically high 4.0-11.0 [facility] Comment on above: Performed By: #### S EDR #### [facility] [address] [place] [address] Dr. Virgil Purdy CRPon 03-24-2023 CRP 53.6 mg/dL Critically high <=1.0 [facility] Comment on above: Performed By: #### B MP, URIC, CRP #### [facility] [address] [address] [address] Virgil Purdy CULTURE BLOODon 03-24-2023 Microscopic examination of blood, culture Culture Observations: NO GROWTH AT 5 DAYS. Normal [facility] Comment on above: Performed By: #### L ACT #### [facility] [address] [address] [address] Virgil Purdy Microscopic examination of blood, culture Culture Observations: NO GROWTH AT 5 DAYS. Normal [facility] Comment on above: Performed By: #### L ACT #### [facility] [address] [address] [address] Virgil Purdy LACTATE/LACTIC ACIDon 2022 Lactate [Moles/Vol] 1.4 mmol/L Normal 0.4-2.0 [facility] Comment on above: Performed By: #### L ACT #### [facility] [address] [place], [place] [address] Dr. Virgil Purdy MRI ARM LT WO [...] by: LEE RODRÍGUEZ Date: 2023-03-24 17:45 Normal [facility] PROF CHEM 8 (BAS METB)on Anion gap [Moles/Vol] 16.0 mmol/L Normal [facility] Comment on above: Performed By: #### B MP, URIC, CRP #### [facility] [address] [place], [place] [address] Dr. Virgil Purdy Calcium [Mass/Vol] 10.4 mg/dL Critically high 8.5-10.1 [facility] Comment on above: Performed By: #### B MP, URIC, CRP #### [facility] [address] [place], [place] [address] Dr. Virgil Purdy Chloride [Moles/Vol] 97 mmol/L Critically low 98-107 [facility] Comment on above: Performed By: #### B MP, URIC, CRP #### [facility] [address] [place] [address] Dr. Virgil Purdy CO2 [Moles/Vol] 26.7 mmol/L Normal 21.0-32.0 [facility] Comment on above: Performed By: #### B MP, URIC, CRP #### [facility] [address] [address] [address] Virgil Purdy Creatinine [Mass/Vol] 1.36 mg/dL Critically high 0.55-1.02 [facility] Comment on above: Performed By: #### B MP, URIC, CRP #### [facility] [address] [place] [address] Dr. Virgil Purdy EGFR-AF SAUDI ARABIAN 49 mL/min/1.73m2 Critically low >=60 [facility] Comment on above: Performed By: #### B MP, URIC, CRP #### [facility] [address] [place] [address] Dr. Virgil Purdy EGFR-NON AF SAUDI ARABIAN 40 mL/min/1.73m2 Critically low >=60 [facility] Comment on above: Performed By: #### B MP, URIC, CRP #### [facility] [address] [place] [address] Dr. Virgil Purdy Glucose [Mass/Vol] 97 mg/dL Normal 74-106 [facility] Comment on above: Performed By: #### B MP, URIC, CRP #### [facility] [address] [place] [address] Dr. Virgil Purdy Potassium [Moles/Vol] 3.7 mmol/L Normal 3.5-5.1 [facility] Comment on above: Performed By: #### B MP, URIC, CRP #### [facility] [address] [place] [address] Dr. Virgil Purdy Sodium [Moles/Vol] 136 mmol/L Normal 136-145 [facility] Comment on above: Performed By: #### B MP, URIC, CRP #### [facility] [address] [address] [address] Virgil Purdy Urea nitrogen [Mass/Vol] 28.0 mg/dL Critically high 7.0-18.0 [facility] Comment on above: Performed By: #### B MP, URIC, CRP #### [facility] [address] [address] [address] Virgil Purdy Urea nitrogen/Creatinine [Mass ratio] 20.6 mg/mg Normal [facility] Comment on above: Performed By: #### B MP, URIC, CRP #### [facility] [address] [address] [address] Virgil Purdy PTT HEPARIN MONITORon 2022 aPTT Coag (Bld) [Time] 36.0 s Critically low 39.5-54.2 [facility] Comment on above: Performed By: #### P T #### [facility] [address] [place] [address] Dr. Virgil Purdy SED RATE WESTERGRENon 2022 SED RATE 78 mm/hr Critically high <=30 [facility] Comment on above: Performed By: #### S EDR #### [facility] [address] [address] [address] Virgil Purdy URIC ACID SERUMon 03-24-2023 Urate [Mass/Vol] 4.3 mg/dL Normal 2.6-6.0 [facility] Comment on above: Performed By: #### B MP, URIC, CRP #### [facility] [address] [place] [address] Dr. Virgil Purdy XR ANKLE HILLARY MIN [...] AC LOVING Date: 2022-08-22 10:41 Normal [facility] CBC AUTO DIFFon 08-19-2022 BASO # 0.1 103/ul Normal 0.0-0.1 [facility] Comment on above: Performed By: #### P T #### [facility] [address] [address] [address] Virgil Purdy Basophils/100 WBC (Bld) 1.1 % Normal 0.2-2.0 [facility] Comment on above: Performed By: #### P T #### [facility] [address] [place] [address] Dr. Virgil Purdy EO # 0.3 103/ul Normal 0.0-0.7 [facility] Comment on above: Performed By: #### P T #### [facility] [address] [address] [address] Virgil Purdy Eosinophils/100 WBC (Bld) 5.2 % Normal 0.9-7.0 [facility] Comment on above: Performed By: #### P T #### [facility] [address] [address] [address] Virgil Purdy Erythrocyte distribution width (RBC) [Ratio] 13.3 % Normal 11.0-15.0 [facility] Comment on above: Performed By: #### P T #### [facility] [address] [address] [address] Virgil Purdy Hematocrit (Bld) [Volume fraction] 44.0 % Normal 36.0-48.0 [facility] Comment on above: Performed By: #### P T #### [facility] [address] [place] [address] Dr. Virgil Purdy Hemoglobin (Bld) [Mass/Vol] 13.7 g/dL Normal 12.0-16.0 [facility] Comment on above: Performed By: #### P T #### [facility] [address] [place] [address] Dr. Virgil Purdy IG # 0.01 10e3/ul Normal 0.00-0.03 [facility] Comment on above: Performed By: #### P T #### [facility] [address] [place] [address] Dr. Virgil Purdy IG % 0.2 % Normal 0.0-0.5 [facility] Comment on above: Performed By: #### P T #### [facility] [address] [place] [address] Dr. Virgil Purdy LYMPH # 1.5 103/ul Normal 1.2-3.8 [facility] Comment on above: Performed By: #### P T #### [facility] [address] [place] [address] Dr. Virgil Purdy Lymphocytes/100 WBC (Bld) 26.8 % Normal 20.5-60.0 [facility] Comment on above: Performed By: #### P T #### [facility] [address] [place] [address] Dr. Virgil Purdy MANUAL DIFF REQ NO Normal [facility] Comment on above: Performed By: #### P T #### [facility] [address] [place] [address] Dr. Virgil Purdy MCH (RBC) [Entitic mass] 28.2 pg Normal 26.7-34.0 [facility] Comment on above: Performed By: #### P T #### [facility] [address] [place] [address] Dr. Virgil Purdy MCHC (RBC) [Mass/Vol] 31.1 g/dL Normal 29.9-35.2 [facility] Comment on above: Performed By: #### P T #### [facility] [address] [place] [address] Dr. Virgil Purdy MCV (RBC) [Entitic vol] 90.7 fL Normal 81.0-99.0 [facility] Comment on above: Performed By: #### P T #### [facility] [address] [place] [address] Dr. Virgil Purdy MONO # 0.5 103/ul Normal 0.3-0.8 [facility] Comment on above: Performed By: #### P T #### [facility] [address] [place] [address] Dr. Virgil Purdy Monocytes/100 WBC (Bld) 8.4 % Normal 1.7-12.0 [facility] Comment on above: Performed By: #### P T #### [facility] [address] [place] [address] Dr. Virgil Purdy NEUT # 3.3 103/ul Normal 1.4-6.5 [facility] Comment on above: Performed By: #### P T #### [facility] [address] [place] [address] Dr. Virgil Purdy Neutrophils/100 WBC (Bld) 58.3 % Normal 43.0-75.0 [facility] Comment on above: Performed By: #### P T #### [facility] [address] [place] [address] Dr. Virgil Purdy Platelet mean volume (Bld) [Entitic vol] 11.4 fL Normal 9.5-13.5 [facility] Comment on above: Performed By: #### P T #### [facility] [address] [place] [address] Dr. Virgil Purdy PLT 263 103/ul Normal 150-450 [facility] Comment on above: Performed By: #### P T #### [facility] [address] [place] [address] Dr. Virgil Purdy RBC 4.85 106/ul Normal 4.20-5.40 [facility] Comment on above: Performed By: #### P T #### [facility] [address] [place] [address] Dr. Virgil Purdy WBC 5.6 103/ul Normal 4.0-11.0 [facility] Comment on above: Performed By: #### P T #### [facility] [address] [place] [address] Dr. Virgil Purdy GLYCOHEMOGLOBIN A1Con 2021 ADA RECOMMENDATION SEE BELOW Normal [facility] Comment on above: Result Comment: ADA RECOMMENDED LIMIT 4.0 - 6.0 ADA THERAPEUTIC TARGET < 7.0 ACTION SUGGESTED > 7.0 Performed By: #### A 1C #### [facility] [address] [place] [address] Dr. Virgil Purdy Glucose [Mass/Vol] 123 mg/dL Normal [facility] Comment on above: Performed By: #### A 1C #### [facility] [address] [address] [address] Virgil Purdy HbA1c (Bld) [Mass fraction] 5.9 % Normal 4.5-6.2 [facility] Comment on above: Performed By: #### A 1C #### [facility] [address] [place] [address] Dr. Virgil Purdy LIPID PROFILEon 08-19-2022 CHOL-HDL RATIO NORM SEE BELOW Normal [facility] Comment on above: Result Comment: 3.3 - 4.4 LOW RISK 4.4 - 7.1 AVERAGE RISK 7.1 - 11.0 MODERATE RISK >11.0 HIGH RISK Performed By: #### P T #### [facility] [address] [place] [address] Dr. Virgil Purdy Cholesterol [Mass/Vol] 240 mg/dL Critically high <=200 [facility] Comment on above: Performed By: #### P T #### [facility] [address] [place] [address] Dr. Virgil Purdy Cholesterol in HDL [Mass/Vol] 70 mg/dL Critically high 40-60 [facility] Comment on above: Performed By: #### P T #### [facility] [address] [place] [address] Dr. Virgil Purdy Cholesterol in LDL [Mass/Vol] 150.2 mg/dL Normal [facility] Comment on above: Performed By: #### P T #### [facility] [address] [place] [address] Dr. Virgil Purdy Cholesterol.total/Ch olesterol in HDL [Mass ratio] 3.4 {ratio} Normal [facility] Comment on above: Performed By: #### P T #### [facility] [address] [address] [address] Virgil Purdy HDL NORMAL > or = 60 mg/dl - LOW CARDIOVASCULAR RISK <40 mg/dl - HIGH CARDIOVASCULAR RISK Normal [facility] Comment on above: Performed By: #### P T #### [facility] [address] [place] [address] Dr. Virgil Purdy LDL CALC NORMAL SEE BELOW Normal [facility] Comment on above: Result Comment: <100 mg/dl OPTIMAL 100 - 129 mg/dl NEAR OR ABOVE OPTIMAL 130 - 159 mg/dl BORDERLINE HIGH 160 - 189 mg/dl HIGH >190 mg/dl VERY HIGH Performed By: #### P T #### [facility] [address] [address] [address] Virgil Purdy Triglyceride [Mass/Vol] 99 mg/dL Normal <=150 [facility] Comment on above: Performed By: #### P T #### [facility] [address] [place] [address] Dr. Virgil Purdy VLDL CALC 19.8 mg/dL Normal [facility] Comment on above: Performed By: #### P T #### [facility] [address] [place] [address] Dr. Virgil Purdy LIVER PROFILEon 08-19-2022 Albumin [Mass/Vol] 3.8 g/dL Normal 3.4-5.0 [facility] Comment on above: Performed By: #### P T #### [facility] [address] [place] [address] Dr. Virgil Purdy Albumin/Globulin [Mass ratio] 1.1 {ratio} Normal [facility] Comment on above: Performed By: #### P T #### [facility] [address] [place] [address] Dr. Virgil Purdy ALP [Catalytic activity/Vol] 86 U/L Normal 46-116 [facility] Comment on above: Performed By: #### P T #### [facility] [address] [place] [address] Dr. Virgil Purdy ALT [Catalytic activity/Vol] 21 U/L Normal 14-59 [facility] Comment on above: Performed By: #### P T #### [facility] [address] [address] [address] Virgil Purdy AST [Catalytic activity/Vol] 20 U/L Normal 15-37 [facility] Comment on above: Performed By: #### P T #### [facility] [address] [address] [address] Virgil Purdy BILI, CONJUGATED 0.1 mg/dL Normal 0.0-0.2 [facility] Comment on above: Performed By: #### P T #### [facility] [address] [address] [address] Virgil Purdy Bilirubin [Mass/Vol] 0.2 mg/dL Normal 0.2-1.0 [facility] Comment on above: Performed By: #### P T #### [facility] [address] [place] [address] Dr. Virgil Purdy Globulin (S) [Mass/Vol] 3.5 g/dL Normal [facility] Comment on above: Performed By: #### P T #### [facility] [address] [place] [address] Dr. Virgil Purdy Protein [Mass/Vol] 7.3 g/dL Normal 6.4-8.2 [facility] Comment on above: Performed By: #### P T #### [facility] [address] [place] [address] Dr. Virgil Purdy PROF CHEM 8 (BAS METB)on Anion gap [Moles/Vol] 11.9 mmol/L Normal [facility] Comment on above: Performed By: #### P T #### [facility] [address] [place] [address] Dr. Virgil Purdy Calcium [Mass/Vol] 9.0 mg/dL Normal 8.5-10.1 [facility] Comment on above: Performed By: #### P T #### [facility] [address] [address] [address] Virgil Purdy Chloride [Moles/Vol] 105 mmol/L Normal 98-107 [facility] Comment on above: Performed By: #### P T #### [facility] [address] [address] [address] Virgil Purdy CO2 [Moles/Vol] 25.3 mmol/L Normal 21.0-32.0 [facility] Comment on above: Performed By: #### P T #### [facility] [address] [address] [address] Virgil Purdy Creatinine [Mass/Vol] 0.90 mg/dL Normal 0.55-1.02 [facility] Comment on above: Performed By: #### P T #### [facility] [address] [address] [address] Virgil Purdy EGFR-AF SAUDI ARABIAN >60 Normal >=60 [facility] Comment on above: Performed By: #### P T #### [facility] [address] [place] [address] Dr. Virgil Purdy EGFR-NON AF SAUDI ARABIAN >60 Normal >=60 [facility] Comment on above: Performed By: #### P T #### [facility] [address] [address] [address] Virgil Purdy Glucose [Mass/Vol] 93 mg/dL Normal 74-106 [facility] Comment on above: Performed By: #### P T #### [facility] [address] [address] [address] Virgil Purdy Potassium [Moles/Vol] 5.2 mmol/L Critically high 3.5-5.1 [facility] Comment on above: Performed By: #### P T #### [facility] [address] [address] [address] Virgil Purdy Sodium [Moles/Vol] 137 mmol/L Normal 136-145 [facility] Comment on above: Performed By: #### P T #### [facility] [address] [address] [address] Virgil Purdy Urea nitrogen [Mass/Vol] 16.0 mg/dL Normal 7.0-18.0 [facility] Comment on above: Performed By: #### P T #### [facility] [address] [address] [address] Virgil Pudry Urea nitrogen/Creatinine [Mass ratio] 17.8 mg/mg Normal [facility] Comment on above: Performed By: #### P T #### [facility] [address] [address] [address] Virgil Purdy TSHon 08-19-2022 TSH 14.874 uIU/mL Critically high 0.358-3.740 [facility] Comment on above: Performed By: #### P T #### [facility] [address] [address] [address] Virgil Purdy COVID Quick Testingon 2020 Result Negative [employer] Other Vital Signs Date Time Vital Sign Value Performing Clinician Facility 01-06-2025 10:38-0500 Body height 157.5 cm Fior Pinon DPM Work Phone: [facility] 01-06-2025 10:38-0500 Body mass index (BMI) [Ratio] 29.26 kg/m2 Fior Pinon DPM Work Phone: [facility] 01-06-2025 10:38-0500 Body weight 72.58 kg Fior Pinon DPM Work Phone: [facility] 04-10-2023 09:30-0400 Body height 157.48 cm Janny Concepcion Other [employer] Other 04-10-2023 09:30-0400 Body mass index (BMI) [Ratio] 28.16 kg/m2 Janny Concepcion Other [employer] Other 04-10-2023 09:30-0400 Body weight 69.85 kg Janny Concepcion Other [employer] Other 09-30-2021 15:15-0500 Body height 157.48 cm Harper Shin Other [employer] Other 09-30-2021 15:15-0500 Body mass index (BMI) [Ratio] 29.63 kg/m2 Harper Radhanty Other [employer] Other 09-30-2021 15:15-0500 Body temperature 96.2 [degF] Harper Radhanty Other [employer] Other 09-30-2021 15:15-0500 Body weight 73.48 kg Harper Radhanty Other [employer] Other 09-30-2021 15:15-0500 SaO2% (BldA) [Mass fraction] 97 % Harper Radhantlili Other [employer] Other Encounters Encounter Date Encounter Type Care Provider Facility Start: 05-29-2025 End: 05-29-2025 Emergency department patient visit NO PCP NO PCP [facility] Start: 02-03-2025 End: 02-03-2025 ambulatory FIOR PINON Not Available Start: 01-06-2025 End: 01-06-2025 Office outpatient new 45 minutes Fior Pinon DPM Work Phone: [facility] Comment on above: Posterior tibial ten dinitis of right lower extremity (Primary Dx); Stress fracture of left tibia, initial encounter; Acute right ankle pain; Instability of right ankle joint; Difficulty walking Start: 01-06-2025 End: 01-06-2025 ambulatory FIOR PINON Not Available Start: 07-24-2023 End: 07-24-2023 ambulatory Janny Concepcion Other [employer] Other Start: 07-24-2023 Postop follow up vis it related to original px [facility] Start: 05-06-2023 End: 05-06-2023 ambulatory Janny Concepcion Facility:[facility] Start: 05-01-2023 End: 05-01-2023 ambulatory Janny Concepcion Other [employer] Other Start: 05-01-2023 Postop follow up vis it related to original px Janny Concepcion [facility] Start: 04-17-2023 End: 04-17-2023 ambulatory JANNY CARLENE Facility:[facility] Start: 04-17-2023 Postop follow up vis it related to original px Janny Carlene [facility] Start: 04-10-2023 End: 04-10-2023 ambulatory Jannyheriberto Concepcion Other [employer] Other Start: 04-10-2023 Postop follow up vis it related to original px Janny Concepcion [facility] Start: 04-07-2023 End: 04-07-2023 ambulatory Janny Concepcion Facility:[facility] Start: 04-06-2023 End: 04-06-2023 ambulatory Janny Concepcion Facility:[facility] Start: 03-26-2023 End: 04-02-2023 Evaluation and management of inpatient John Jigar Facility:[facility] Start: 03-26-2023 End: 03-26-2023 Evaluation and management of inpatient DR AMILCAR SMITH . Facility:[facility] Start: 08-22-2022 End: 08-23-[address] HUBER DEWEY Facility:[facility] Start: 08-21-2022 Encounter for genera l adult medical examination without abnormal findings DR HUBER DEWEY [facility] Start: 08-19-2022 End: 08-20-[address] HUBER DEWEY Facility:[facility] Start: 08-19-2022 End: 08-20-2022 Encounter for general adult medical examination without abnormal findings DR HUBER DEWEY Facility:[facility] Start: 09-30-2021 End: 09-30-2021 ambulatory Harper Shin Other [employer] Other Start: 09-30-2021 Office outpatient vi sit 15 minutes Harper Shin [facility] Procedures Date Procedure Procedure Detail Performing Clinician Start: 01-06-2025 Radex ankle complete minimum 3 views Fior Pinon DPRobles Work Phone: Plan of Treatment Date Care Activity Detail Author Start: 02-03-2025 End: 02-03-2025 Patient encounter procedure 02/03/2025 10:30 AM EDT Office Visit [facility] [address] [id number] Fior Pinon DPM [address] [place] [address] [facility] Start: 07-17-2024 Influenza vaccination Influenza Vacc ine (#1) [facility] Start: 2007 Screening for malign ant neoplasm of breast Mammogram [facility] Start: 1997 Screening for malign ant neoplasm of cervix [facility] Start: 1988 Screening for malign ant neoplasm of cervix Pap Smear [facility] Start: 1967 Screening for malign ant neoplasm of colon [facility] Immunizations Immunization Date Immunization Notes Care Provider Fa cility 09-05-2023 influenza virus vacc ine, unspecified formulation Fior Pinon DPM Work Phone: [facility] Healthcare Payers Date Payer Category Payer Self-pay 2019 Private Health Insurance [facility] [id number] 1967 Unknown [id number] [id number]. 2.593 1967 Unknown [id number] [id number]. 2.593 1967 Unknown [id number] [id number]. 2.593 1967 Unknown [id number] 2.16.840.1.641843.3.579. 2.593 1967 Unknown [id number] 2.16.840.1.376707.3.579. 2.1259 1967 Unknown [id number] 2.16.840.1.837306.3.579. 2.1259 1967 Unknown [id number] 2.16.840.1.624251.3.579. 2.1259 1967 Unknown [id number] 2.16.840.1.177101.3.579. 2.1286 1959 Unknown [id number] [id number] Unknown [id number] 2.16.840.1.015522.3.579. 2.531 Unknown [id number] 2.16.840.1.252562.3.579. 2.531 Unknown [id number] 2.16.840.1.237015.3.579. 2.531 Unknown [id number] [id number]. 2.531 Worker's Compensation [id number] Social History Date Type Detail Facility Unknown if ever smoked [facility] [employer] Other Start: 01-06-2025 Sex Assigned [facility] [employer] Other Start: 01-06-2025 Tobacco smoking stat [facility] Ex-smoker [facility] History of tobacco [...] Fior Pinon DPM documented in this encounter [facility] 07-24-2023 Evaluation note Encounter Date Diagnosis [...] obtain x-rays at consider a cortisone injection. [employer] Other 06-16-2023 Evaluation note* Encounter Date Diagnosis [...] 3 months. Short term disability phone? number [phone] [employer] Other 06-02-2023 Evaluation note* Encounter Date Diagnosis [...] for removal of sutures (ICD-10 - Z48.02) [employer] Other 05-26-2023 Evaluation note* Encounter Date Diagnosis [...] antibiotics. Call with any questions or concerns. [employer] Other 05-09-2023 NotePROCEDURE: XR FOREARM LT 2 [...] Electronically authenticated by: AC LOVING Date: 2023-03-24 11:04[facility]05-09-2023 NotePROCEDURE: XR FOREARM LT 2 VIEWS, [...] Electronically authenticated by: AC LOVING Date: 2023-03-24 11:04[facility]11-15-2021 Evaluation note* Encounter Date Diagnosis Assessment [...] Patient care instructions given in writting by [facility] document [employer] Other Evaluation note* Diagnosis Posterior tibial tendinitis [...] Surgical History finger Hospitalization History see above [employer] Other History general Narrative - Reported* Type Description Date Medical History Tachycardia Surgical History hysterectomy Surgical History appendectomy Surgical History colonoscopy Surgical History finger Surgical History I & d left forearm Hospitalization History see above [employer] Other Summary Purpose Family History No Family History Records FoundNo Family History Records FoundNo Family History Records FoundNo Family History Records Found Advance Directives No Advanced Directives Records FoundNo Advanced Directives Records FoundNo Advanced Directives Records FoundNo Advanced Directives Records Found Additional Source Comments REASON FOR VISIT (unrecogniz ed section and content) Reason Comments Ankle Pain Alura Jayson 59 yo New patient presents with Right ankle pain, patient relates history of broken ankle and sprains, hairline Fx 14 months. 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 (11/2023).SS8 INFORMATION SOURCE (unrecogn ized section and content) DATE CREATED AUTHOR 04/24/2023 [facility] DATE CREATED AUTHOR AUTHOR'S ORGANIZ ATION 05/28/2023 [facility] DATE CREATED AUTHOR AUTHOR'S ORGANIZ ATION 02/05/2025 [facility] EPIC DATE CREATED AUTHOR AUTHOR'S ORGANIZ ATION 06/02/2025 [facility] Care Teams (unrecognized sec tion and content) [employer] Libr[employer] Relationship Specialty Start Date End Date Huber Dewey MD [address] [place] [address] PCP - General Family Medicine 09/16/23 FOR [...] BE BASED ON THE PRIMARY CLINICAL RECORDS. [employer] provides no warranty or guarantee of the accuracy or completeness of information in this document.
== END 2025-07-18 09:10 | disposition home or self-care (01) ==
LOC: CT 09:09
PROVIDERS: PCP Family Medicine; Visit Provider Family Medicine
DX: R91.8 Other nonspecific abnormal finding of lung field (principal); Z87.891 Personal history of nicotine dependence; J44.9 Chronic obstructive pulmonary disease, unspecified
CPT/HCPCS: 71271

== ENCOUNTER 2025-09-26 13:05 | Outpatient (OUT) | payer OTHER, SELFPAY ==
--- OUTSIDE RECORDS SUMMARY | 2025-09-26 13:07 | XMS_ITS | Clinical Summary ---
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 Name Role Phone Huber Thorne MD Primary Care Provider [phone] Allergies No known active allergies Medications MedicationSigDispense QuantityRefillsLast FilledStart DateEnd DateStatus Nirmatrelvir&Ritonavir 300/100 (Paxlovid, 300/100,) 20 x 150 MG & 10 x 100MG tablet therapypack Indications:COVIDTake 1 Dose by mouth See administration instructions 1 each 4Active celecoxib (CeleBREX) 200 MG capsule Indications:Arthralgia of right ankletake 1 capsule by mouth IN THE MORNING and BEFORE BEDTIME 180 capsule ctive ibuprofen 800 MG tablet Indications:Arthralgia of both anklestake 1 tablet by mouth three times a day if needed 90 tablet ctive levothyroxine (Synthroid, Levoxyl) 100 MCG tablet Indications:Adult hypothyroidismTAKE 1 TABLET BY MOUTH EVERY DAY 90 tablet 4Active omeprazole (PriLOSEC) [address] capsule Indications:Chronic GERDTAKE 1 CAPSULE BY MOUTH EVERY DAY 90 capsule 5Active methylPREDNISolone (Medrol Dospak) 4 MG tablets Indications:Posterior tibial tendinitis of right lower extremityTake as directed on package. 21 tablet 5Active Active Problems ProblemNoted DateDiagnosed DateArthralgia of both zkamwj1903/28/2024hronic left shoulder pain03/28/2024hronic superficial gastritis without avfgzadr82/13/2024 Dyshidrotic szzbjc3403/28/2024dult metwguorunqdmf16/13/2024aroxysmal atrial sbhlsdzixqgn21/13/2024upture of right tympanic membrane due to otitis media 03/28/2024 Social History Tobacco UseTypesPacks/DayYears UsedDateSmoking Tobacco: FormerCigarettes Tobacco Cessation:Counseling Given: Not Answered Comments:Patient quit 2015 Alcohol UseStandard Drinks/WeekCommentsYes2 (1 standard drink = 0.6 oz pure alcohol)4x a weekCommentsUnknownSex and Gender InformationValueDate RecordedSex Assigned at BirthNot on fileLegal YulLqvkem44/15/2023 7:13 PM EDT Gender IdentityNot on fileSexual OrientationNot on file Last Filed Vital Signs Vital SignReadingTime TakenCommentsBlood Pressure--Pulse--Temperature-- Respiratory Rate--Oxygen Saturation--Inhaled Oxygen Concentration--Necuvf15.9 kg (154 lb)02/03/2025 10:08 AM EXWWomnod855.5 cm (5' 2 )02/03/2025 10:08 AM EDTBody Mass Index28.17002/03/2025 10:08 AM EDT Plan of Treatment Not on file Insurance Care Teams Team MemberRelationshipSpecialtyStart DateEnd Date Huber Thorne MD PCP - GeneralFamily Tsqboyro15/1/23
--- OUTSIDE RECORDS SUMMARY | 2025-09-26 13:07 | XMS_ITS | Clinical Summary ---
Author Organization [employer] [facility] tem Address [id number] [place] [address] Care Team Providers Care Communications Writer Name Role Phone No Pcp, No Pcp Primary Care Provider Unavailabl e Allergies No known active allergies Medications MedicationSigDispense QuantityRefillsLast FilledStart DateEnd DateStatus ibuprofen (MOTRIN) 800 mg tablet Take 1 tablet (800 mg total) by mouth every 8 (eight) hours as needed.Active levothyroxine (SYNTHROID, LEVOTHROID) 100 MCG tablet Take 1 tablet (100 mcg total) by mouth in the morning.4Active omeprazole (PriLOSEC) 40 mg capsule Take 1 capsule (40 mg total) by mouth in the morning.5Active Immunizations ImmunizationAdministration DatesNext MeiKvlb5205/29/2025 Social History Tobacco UseTypesPacks/DayYears UsedDateSmoking Tobacco: FormerCigarettes Smokeless Tobacco: Never Tobacco Cessation:Counseling Given: Not Answered Alcohol UseStandard Drinks/WeekCommentsYes0 (1 standard drink = 0.6 oz pure alcohol)occasionallyChildcareAnswerDate JckfwobaRwhsqtcziVpmcwgn99/12/2019 EmploymentAnswerDate EigqeiwgHdllpqpbfjSkpthjk18/12/2019Hunger ScreeningAnswer Date RecordedWithin the past 12 months we worried whether our food would run out before we got money to buy more.Never True05/29/2025Within the past 12 months the food we bought just didn't last and we didn't have money to get more.Never True05/29/2025CommentsUnknownSex and Gender InformationValueDate RecordedSex Assigned at BirthNot on fileLegal VkoRiyizk16/06/2015 12:07 PM EDT Gender IdentityNot on fileSexual OrientationNot on file Last Filed Vital Signs Vital SignReadingTime TakenCommentsBlood Zumcqnco801/8207 12:34 PM EDT Jdmjs286905/29/2025 12:34 PM ZBKPgynnotvfrj15.5 ??C (97.7 ??F)05/29/2025 12:34 PM EDTRespiratory Tmai503405/29/2025 12:34 PM EDTOxygen Qrdcmhgguu95%05/29/2025 12:34 PM EDTInhaled Oxygen Concentration--Idyxnl46.9 kg (154 lb)05/29/2025 12:34 PM UUTOtkpms772.5 cm (5' 2 )05/29/2025 12:34 PM EDTBody Mass Index28.17005/29/2025 12:34 PM EDT Plan of Treatment Health MaintenanceDue DateLast DoneCommentsDepression Mgdwserca79/12/1980Adult BMI Follow Up Plan1985Pap Smear1988Zoster (Shingles) Vaccine (1 of 2)2017Influenza Lohxdpz5407/17/2025dult BMI Ocmepxria07 Tobacco Nppbtsyne02DTaP,Tdap and Td Vaccines (2 - Td or Tdap) Medical Devices Not on file Insurance * Guarantor: Pooja Sifuentes TypeRelation to PatientDate of BirthPhone Billing AddressWorkers LwepOphn[birth year][address] [address] Care Teams Team MemberRelationshipSpecialtyStart DateEnd Date No Pcp, No Pcp LIONEL Liu [id number] PCP - GeneralFami Medicine05/29/25
--- OUTSIDE RECORDS SUMMARY | 2025-09-26 13:08 | XMS_ITS | CCD ---
Author Organization [facility] Care Team Providers Care Market News Reporter Name Role Phone Harper Shin Unavailable LUIS ., DR FITZGERALD Admitting Unavailable LUIS ., DR FITZGERALD Attending Unavailable LUIS ., DR FITZGERALD Consulting Unavailable NADERER, DR HUBER Hu Primary Care Unavailable ZIEBER, DR AC Tolentino Consulting Unavailable HAY ., DR ALBERTO Consulting Unavailable SCHREIBMANLEE Consulting Unavailable SWARTZ, LANE Consulting Unavailable ZULEIMA, DR HUBER Hu Admitting Unavailable NADSULLY, DR HUBER Hu Attending Unavailable FABIENNE, DR AC Tolentino Consulting Unavailable NADERERajan, DR HUBER Hu Primary Care Unavailable NADERER, DR HUBER Hu Consulting Unavailable NADERER, DR HUBER Hu Attending Unavailable NADERER, DR HUBER Hu Consulting Unavailable NADERERajan, DR HUBER Hu Primary Care Unavailable ZULEIMA, DR HUBER Hu Admitting Unavailable JANNY CONCEPCION Admitting Unavailable JANNY CONCEPCION Attending Unavailable ZULEIMA, DR HUBER Hu Primary Care Unavailable Janny Concepcion Unavailable Janny Concepcion A Admitting Unavailable Janny Concepcion A Attending Unavailable Zuleima, Huber Primary Care Unavailable Roberto Concepcionin A Admitting Unavailable Janny Concepcion A Attending Unavailable Huber Dewey Primary Care Unavailable Jgiar, John Admitting Unavailable Nadererajan, Huber Primary Care Unavailable Juvenal Holguin Consulting Unavailable Arabella Bynum Attending Unavailable Janny Concepcion A Consulting Unavailable Roberto Concepcionin A Admitting Unavailable Janny Concepcion A Attending Unavailable Zuleima, Huber Primary Care Unavailable Huber Dewey MD Primary Care Provider FIOR PINON Attending Unavailable FIOR PINON Referring Unavailable FIOR PINON Attending Unavailable NO PCP, NO PCP Primary Care Unavailable DAV PAL Attending Unavailable Amilcar Smith Primary Care Physician Juvenal FLORES Attending Unavailable Allergies Allergy ClassificationReported Allergen(s)Allergy TypeDate of OnsetReaction(s) Facility (1 source)PenicillinsDrug allergy (disorder)86-95-8486XxmwcewggUniversity [facility]als [facility] Repository (1 source)No Known Medication Allergies; 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: [No Known Medication Allergies]Propensity to adverse reactions (disorder)[facility] Repository Medications Current Medications MedicationDrug Class(es)DatesSig (Normalized)Sig (Original)acetaminophen 500 mg oral tablet (4 sources)Start: 03-46-1152wczy 2 tablets by mouth every eight hours Acetaminophen 500 MG 2 tablets Orally Every 8 hours for 30 days March, Activecelecoxib 200 mg oral capsule (3 sources)Nonsteroidal Anti-inflammatory DrugStart: 42-82-3181xqps 1 capsule by mouth twice dailyCeleBREX 200 mg Cap 200 mg = 1 cap(s), Oral, BID, Refills(s) 0 Start Date: 08/28/25 Status: OrderedMedication Dispense Status: Completed Total Allowed Fills: 1 Fills Dispensed: 0Start: 13-71-1803scqa 1 capsule by mouth at bedtimecelecoxib (CeleBREX) 200 MG capsule Indications: Arthralgia of right ankle take 1 capsule by mouth IN THE MORNING and BEFORE BEDTIME 180 capsule 3 04/12/2024 Activecetirizine hydrochloride 10 mg oral tablet (2 sources)Histamine-1 Receptor AntagonistStart: 87-59-3970cbpi 1 tablet by mouth every twenty-four hoursCetirizine HCl 10 MG 1 tablet Orally Once a day for 14 days Sep, Activefluticasone propionate 0.05 mg/actuat metered dose nasal spray (1 source)CorticosteroidStart: 60-90-1591ckqg 1 spray(s) nasal route once daily Flonase Allergy Relief 50 MCG/ACT 1 spray in each nostril Nasally Once a day for 14 day(s) Sep, Activeibuprofen 800 mg oral tablet (2 sources)Nonsteroidal Anti-inflammatory DrugStart: 84-66-6813xcvz 1 tablet by mouth three times dailyibuprofen 800 MG tablet Indications: Arthralgia of both ankles take 1 tablet by mouth three times aday if needed 90 tablet 3 05/20/2024 Activelevothyroxine sodium 0.1 mg oral tablet (3 sources)l-ThyroxineStart: 57-60-4638zfwf 1 tablet by mouth once daily levothyroxine 100 mcg (0.1 mg) Tab 100 mcg = 1 tab(s), Oral, Daily, Refills(s) 0 Start Date: 08/28/25 Status: Ordered Medication Dispense Status: Completed Total Allowed Fills: 1 Fills Dispensed: 0Start: 46-84-1474lwql 1 tablet by mouth once dailylevothyroxine (Synthroid, Levoxyl) 100 MCG tablet Indications: Adult hypothyroidism (CMS/HCC) TAKE 1 TABLET BY MOUTH EVERY DAY 90 tablet 3 08/24/2024 Activelinezolid 600 mg oral tablet (1 source)Oxazolidinone AntibacterialLinezolid 600 MG TAKE 1 TABLET BY MOUTH TWICE DAILY FOR 14 DAYS Oral for 14 Days 12 pills ActivemethylPREDNISolone (2 sources)CorticosteroidStart: 74-87-2984yfzlkcOUPIYLQwkxvp (Medrol Dospak) 4 MG tablets Indications: Posterior tibial tendinitis of right lower extremity Take as directed on package. 21 tablet 01/06/2025 ActiveNirmatrelvir&Ritonavir 300/100 (Paxlovid, 300/100,) 20 x 150 MG & 10 x 100MG tablet therapypack (2 sources)Start: 94-06-8645Muomferjzjmz&Ritonavir 300/100 (Paxlovid, 300/100,) 20 x 150 MG & 10 x 100MG tablet therapypack Indications: COVID Take 1 Dose by mouth See administration instructions 1 each 11/26/2023 Activeomeprazole 40 mg delayed release oral capsule (5 sources)Proton Pump InhibitorStart: 28-52-5595qqza 1 capsule by mouth once dailyomeprazole 40 mg Cap-DR 40 mg = 1 cap(s), Oral, Daily, Refills(s) 0 Start Date: 08/28/25 Status: Ordered Medication Dispense Status: Completed Total Allowed Fills: 1 Fills Dispensed: 0Start: 21-33-0386ckpf 1 capsule by mouth once dailyomeprazole (PriLOSEC) [address] capsule Indications: Chronic GERD TAKE 1 CAPSULE BY MOUTH EVERY DAY 90 capsule 1 12/09/2024 ActiveOmeprazole 40 MG Oral for 30 Days ActiveoxyCODONE hydrochloride 5 mg oral tablet (3 sources)Opioid AgonistStart: 49-11-8705cmza 1 tablet by mouth every four hours as needed for painoxyCODONE HCl 5 MG 1 tablet Orally every 4 hours, as needed for pain for 7 days HEATHER # [id number] March, ActivePenicillin (2 sources)Penicillin 28 pills Activesimvastatin 20 mg oral tablet (1 source)HMG-CoA Reductase InhibitorStart: 23-08-6887fypz 1 tablet by mouth once daily in the eveningsimvastatin 20 mg Tab 20 mg = 1 tab(s), Oral, qPM, Refills(s) 0 Start Date: 09/13/25 Status: Ordered Medication Dispense Status: Completed Total Allowed Fills: 1 Fills Dispensed: 0 Completed/Discontinued Medications MedicationDrug Class(es)DatesSig (Normalized)Sig (Original)cefTRIAXone (4 sources)Cephalosporin AntibacterialStart: 48-79-2963Funglxno 500 mg Oct, 500 mg Problems Active Problems Problem ClassificationProblemDateDocumented DateEpisodic/ChronicAbdominal pain (2 sources)Epigastric pain; 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: [Epigastric pain]Onset: 09-13-2025 EpisodicCardiac dysrhythmias (4 sources)Unspecified atrial fibrillation; 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: [Paroxysmal atrial fibrillation]Onset: 426278-57-4109NdyqcagMvebvmcc of white blood cells (1 source)Elevated white blood cell count, unspecified; 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: [Elevated white blood cell count, unspecified]Onset: 45-25-3004OqivqfvYjsbgvkvy of lipid metabolism (1 source)Krszkzsoomilhxlufidw89-08-1442UutqhcfB Codes: Struck by; against (1 source)Walked into wall, initial encounter; 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: [WALKED INTO WALL INITIAL ENCOUNTER]Onset: 75-82-1211YqaolmgdNaeongyioc disorders (3 sources)Gastro-esophageal reflux disease without esophagitis; 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: [Gastroesophageal reflux disease]Onset: 84-19-7379VtqnngzGbcgx and electrolyte disorders (1 source)Hypokalemia; 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: [HYPOKALEMIA]Onset: 24-87-7846Nlptiqlq Fracture of lower limb (2 sources)Stress fracture of left tibia; 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: [Stress fracture, left tibia, initial encounter for fracture]81-37-6703DiadasuyUohoqjpfa and duodenitis (2 sources)Chronic superficial gastritis; 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: [Chronic superficial gastritis without bleeding]Onset: 246621-65-0118UwxcyjhShnizqcwiz disorders (1 source)Hormone replacement therapy; 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: [HORMONE REPLACEMENT THERAPY]Onset: 07-92-9680TayyqymlPdwk wounds of extremities (1 source)Laceration without foreign body of left index finger without damage to nail, initial encounter; 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: [Laceration without foreign body of left index finger without damage to nail, initial encounter]Onset: 27-30-2908Tbzatkmk Other aftercare (1 source)Other assisted (current) drug therapy; 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: [OTH ALF CURRENT DRUG THERAPY]Onset: 69-11-7131WlbfojafVnvix aftercare (1 source)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; 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: [ALF CURRENT USE OF ASPIRIN]Onset: 01-99-4556KajoezstUynoz aftercare (1 source)Encounter for removal of suturesEpisodicOther connective tissue disease (2 sources)Tendinitis of right posterior tibial tendon; 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: [Posterior tibial tendinitis, right leg]49-59-5367TktitpynYsecn gastrointestinal disorders (1 source)Other fecal abnormalitiesOnset: 71-33-6726LgdncqoaAawuk injuries and conditions due to external causes (2 sources)Laceration - injuryOnset: 30-32-2083WpavrtwyFernq nervous system disorders (2 sources)Difficulty walking; 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: [Difficulty in walking, not elsewhere classified]63-68-5366UdpivsaZijbl non-traumatic joint disorders (1 source)Stiffness of left elbow, not elsewhere classifiedEpisodicOther non- traumatic joint disorders (1 source)Pain in left kneeEpisodicOther non-traumatic joint disorders (2 sources)Acute ankle pain; 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: [Pain in right ankle and joints of right foot]17-35-2125VuiikxcdQxkjr non-traumatic joint disorders (2 sources)Instability of joint of right ankle; 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: [Other instability, right ankle]29-31-9009AlbwhvhgKzdip nutritional; endocrine; and metabolic disorders (1 source)Gplmtgnhtj47-21-2233OtxkymexSflds nutritional; endocrine; and metabolic disorders (1 source)Overweight in adulthood with body mass index of 25 or more but less than 0071-69-3347PevaizfjDozoo screening for suspected conditions (not mental disorders or infectious disease) (2 sources)Abnormal results of kidney function studies; 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: [Stool DNA-based colorectal cancer screening positive]Onset: EpisodicResidual codes; unclassified (1 source)Family history of malignant neoplasm of bladder; 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: [FAM HX MALIGNANT NEOPLASM BLADDER]Onset: 03-39-8627ZdnqqulgOkyaajkb codes; unclassified (1 source)Family history of malignant neoplasm of other organs or systems; 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: [FAM HX MALIG NEOPLASM OTH ORGN/SYS]Onset: 88-50-5349Ejnieogb Residual codes; unclassified (4 sources)Other specified postprocedural statesEpisodicScreening and history of mental health and substance abuse codes (1 source)Personal history of nicotine dependence; 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: [PERSONAL HISTORY OF NICOTINE DEPEND]Onset: 67-63-2183PjzntdqqBdzr and subcutaneous tissue infections (10 sources)Cellulitis of left upper limb; 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: [Cellulitis, unspecified]Onset: 93-74-7084TqmffsagYigtsujxzfa injury; contusion (1 source)Contusion of left forearm, initial encounter; 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: [CONTUSION LEFT FOREARM INITIAL ENC]Onset: 30-73-7609ElvsguwtFwekbxj disorders (3 sources)Hypothyroidism; 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: [Hypothyroidism, unspecified]Onset: 979832-63-1742AjlxlvgKrnberantspe (1 source)Ankylosis, left elbow; 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, left elbow]Onset: 84-61-8444Mussnhgvgwmt (1 source)Cellulitis of left upper limb; 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: [Cellulitis of left upper limb]Onset: 04-07-2023 Past or Other Problems Problem ClassificationProblemDateDocumented DateEpisodic/ChronicImmunizations and screening for infectious disease (1 source)Contact with and (suspected) exposure to other viral communicable diseasesOnset: 09-30-2021 Resolved: 68-55-8367CoktwixfWblpk non-traumatic joint disorders (4 sources)Pain in right ankle and joints of right foot; 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: [PAIN IN RIGHT ANKLE]Onset: 17-31-1493WxndfnyrIivcp non-traumatic joint disorders (1 source)Pain in left ankle and joints of left foot; 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: [PAIN IN LEFT ANKLE]Onset: 95-07-4039GkynzwnfUkfns non-traumatic joint disorders (2 sources)Bilateral ankle joint pain; 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: [Pain in right ankle and joints of right foot]Onset: 498717-58-2564WanshzvfDnqtd non-traumatic joint disorders (2 sources)Chronic pain of left upper limb; 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: [Pain in left shoulder]Onset: 705219-12-1874EqucycdcOwtwm skin disorders (2 sources)Vesicular eczema; 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: [Dyshidrosis [pompholyx]]Onset: 352637-09-3938FgovddmxZulbj upper respiratory infections (1 source)Acute upper respiratory infection, unspecifiedOnset: 09-30-2021 Resolved: 01-01-8065JgnulwdxMpqnwa media and related conditions (2 sources)Rupture of right tympanic membrane due to otitis media; 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: [Otitis media, unspecified, right ear]Onset: 004011-09-0815Warhzsvd Results Test NameValueInterpretationReference RangeFacilityAmbulatory Visit Summaryon 83-53-8668Kdbdtbqelt Visit SummaryAmbulatory Visit Summary LAURA TYLER :1965 Visit Date:09/13/2025 Ambulatory Visit Instructions Your Diagnosis Positive colorectal cancer screening using Cologuard test Your Care Team Attending Physician - MARK UMANZOR, Juvenal Tolentino Primary Care Physician - Amilcar Smith MD This Is Your Medications List Contact prescribing physician if questions or concerns celecoxib (CeleBREX 200 mg Cap) levothyroxine (levothyroxine 100 mcg (0.1 mg) Tab) omeprazole (omeprazole 40 mg Cap-DR) simvastatin (simvastatin 20 mg Tab) Procedures Performed Appendectomy, Colonoscopy, Extraction of wisdom tooth, VH - Vaginal hysterectomy. Discharge Vitals Heart Rate (Peripheral) 70 Respiratory Rate 16 Blood Pressure 110/62 Height 157.4 cm Height 62 in Weight 69.3 kg Weight 152.78 lb BMI 27.97 Medications What How Much When Instructions Unchanged celecoxib (CeleBREX 200 mg Cap) 1 Capsules By Mouth 2 times a day Contact prescribing physician if questions or concerns Unchanged levothyroxine (levothyroxine 100 mcg (0.1 mg) Tab) 1 Tablets By Mouth Every day Contact prescribing physician if questions or concerns Unchanged omeprazole (omeprazole 40 mg Cap-DR) 1 Capsules By Mouth Every day Contact prescribing physician if questions or concerns Unchanged simvastatin (simvastatin 20 mg Tab) 1 Tablets By Mouth Once a day (in the evening) Contact prescribing physician if questions or concerns Allergies No Known Allergies No Known Medication Allergies Problems Ongoing - Any problem that you are currently receiving treatment for. BMI 27.0-27.9,adult Gastroesophageal reflux disease Hypercholesterolemia Hypothyroidism Overweight Paroxysmal atrial fibrillation Positive colorectal cancer screening using Cologuard test Patient Survey You may receive a survey via text or e-mail asking about your office visit. Please share your experience with us by completing your survey. We appreciate your feedback and thank you for choosing us for your care. Patient Portal You may access all of your results and other medical record information on our secure patient portal. If you are not signed up for this yet, please contact [employer] at [phone] to get signed up today. Language Information Language assistance services are available as needed. [facility] 2[facility] D[facility] MIN 2 VWS on 52-98-6601LN FINGER LT 2ND DIGIT MIN 2 VWSXR FINGER LT 2ND DIGIT MIN 2 VWS [...] by Mya Robles MD on 05/29/2025 1:56 PMNormalProMedica Patton State HospitalXR Ankle - right 3 Viewson 38-31-6039Ztuxmqy Result: AP, mortise, lateral views are weight-bearing. Diffuse osteopenia. Small enthesophyte at the insertion of the Achilles tendon. Mild radiopacity across the tibia approximately 3 cm above the fused distal tibial physis. Talus appears well seated within the ankle mortise. No fractures or dislocations noted.[facility] HealthcareRadiology Study observation (narrative)[facility] JoplinXR elbow LT 2Von 31-25-0811JM elbow LT 2VCHERRINGTON [place] [address] XRay Report Signed Patient: Laura Tyler MR#: [id number] : 1965 Acct:[id number] Age/Sex: 57 / F ADM Date: 05/06/23 Loc: [place] Room: Type: [facility] Attending Dr: Janny Concepcion DO Copies to: [...] Braden Rae M.D.05/06/2023 10:05 AM Dictation Location: [place] [address] Transcribed By: [facility] 05/06/23 1005 Dictated By: Braden Rae II, MD 05/06/23 1003 Signed By: 05/06/23 1005NoSycamore Medical CenterCT forearm LT wo conon 68-34-3848BJ forearm LT wo [facility] [place] [address] CT Scan Report Signed Patient: Laura Tyler MR#: [id number] : 1965 Acct:[id number] Age/Sex: 57 / F ADM Date: 04/06/23 Loc: CT Room: Type: REG CLI Attending Dr: Janny Concepcion DO Copies to: Janny Concepcion DO Ordering Provider: Janny Concepcion DO Date of Service: 04/06/23 CT/CT humerus LT wo con: L03.114 ([id number]) CT/CT forearm LT wo con: Left arm [...] Braden Rae M.D.04/06/2023 4:54 PM Dictation Location: [place] [address] Transcribed By: [facility] 04/06/231653 Dictated By: Braden Rae II, MD 04/06/23 164 Signed By: 04/06/231653NormRegency Hospital Cleveland EastC-Reactive Proteinon 09-23-7014L-Reactive Protein8.3 mg/dLHigh0.0-0.5FSt. Anthony's HospitalComment on above:Result Comment: PERFORMED BY: [place] [address] PATHOLOGIST PAYROLL SUPERVISOR FREDY PRICE M.D.Performed By: #### CRP #### [place] [address] USAComplete Blood Count Auto Diffon 73-52-9065Iusokugxz (Bld) [#/Vol]0.1 10*3/uLNormal0.0-0.2FSt. Anthony's HospitalComment on above:Result Comment: PERFORMED BY: [place] [address] PATHOLOGIST PAYROLL SUPERVISOR FREDY PRICE M.D.Performed By: #### CBC #### [place] [address] USABasophils/100 WBC (Bld)0.6 %Normal.[facility] Medical CenterComment on above:Performed By: #### CBC #### [place] [address] USAEosinophils (Bld) [#/Vol]0.3 10*3/uLNormal0.0-0.45 [facility] CenterComment on above:Performed By: #### CBC #### [place] [address] USAEosinophils/100 WBC (Bld)2.5 %Normal.[facility] Medical CenterComment on above:Performed By: #### CBC #### [place] [address] USAErythrocyte distribution width (RBC) [Ratio]14.2 %Normal 11.9-15.3FSt. Anthony's HospitalComment on above:Performed By: #### CBC #### [place] [address] USAHematocrit (Bld) [Volume fraction]34.0 %Npsmsk53.0-46.4 [facility] CenterComment on above:Performed By: #### CBC #### [place] [address] USAHemoglobin (Bld) [Mass/Vol]10.9 g/dLLow11.8-15.4FSt. Anthony's HospitalComment on above:Performed By: #### CBC #### [place] [address] USALymphocytes (Bld) [#/Vol]1.0 10*3/uLNormal1.00-4.8 [facility] CenterComment on above:Performed By: #### CBC #### [facility] [address] [place] [address] USALymphocytes/100 WBC (Bld)8.8 %Normal.[facility] CenterComment on above:Performed By: #### CBC #### [facility] [address]H (RBC) [Entitic mass]27.3 fcClyyzl56.7-34.3FSt. Anthony's HospitalComment on above:Performed By: #### CBC #### [facility] [address] [place] [address] USAV (RBC) [Entitic vol]85.4 jEXiqpve49-480BvofkbwubUniversity Hospitals Portage Medical CenterComment on above:Performed By: #### CBC #### [place] [address] USAMean Corpuscular HGB Conc32.0 g/lFCnftev16.0-35.0[facility] CenterComment on above:Performed By: #### CBC #### [place] [address] USAMonocytes (Bld) [#/Vol]0.3 10*3/uLNormal0.0-0.8[facility] CenterComment on above:Performed By: #### CBC #### [place] [address] USAMonocytes/100 WBC (Bld)2.3 %Normal.[facility] CenterComment on above:Performed By: #### CBC #### [place] [address] USANeutrophils (Bld) [#/Vol]9.9 10*3/uLHigh1.8-7.7FSt. Anthony's HospitalComment on above:Performed By: #### CBC #### [place] [address] USANeutrophils/100 WBC (Bld)85.8 %Normal.[facility] Medical CenterComment on above:Performed By: #### CBC #### [facility] [address] [place] [address] USANRBC%0.0 /100{WBC}Normal0-0.5FSt. Anthony's HospitalComment on above:Performed By: #### CBC #### [facility] [address] [place] [address] USAPlatelet mean volume (Bld) [Entitic vol]7.5 fLNormal 6.3-10.7FSt. Anthony's HospitalComment on above:Performed By: #### CBC #### [place] [address] USAPlatelets (Bld) [#/Vol]476 10*3/xSOppq594-694CbxcyagkiUniversity Hospitals Portage Medical CenterComment on above:Performed By: #### CBC #### [facility] [address] [place] [address] USARBC (Bld) [#/Vol]3.98 10*6/uLNormal3.60-5.00[facility] CenterComment on above:Performed By: #### CBC #### [place] [address] USAWBC (Bld) [#/Vol]11.5 10*3/uLNormal3.8-11.6FSt. Anthony's HospitalComment on above:Performed By: #### CBC #### [place] [address] USABasic Metabolic Panelon 57-15-1971Lovjh gap [Moles/Vol]9.0 mmol/LNormal6.0-15.0[facility] CenterComment on above:Performed By: #### BMP #### [place] [address] USACalcium [Mass/Vol]7.7 mg/dLLow8.6-10.3FSt. Anthony's HospitalComment on above:Performed By: #### BMP #### [place] [address] [place] [address] USAChloride [Moles/Vol]102 mmol/DKetwkn59-189UycpiltbuUniversity Hospitals Portage Medical CenterComment on above:Performed By: #### BMP #### [facility] [address] [place] [address] USACO2 [Moles/Vol]30.4 mmol/WDguwrn94.0-31.0[facility] CenterComment on above:Performed By: #### BMP #### [facility] [address] [place] [address] USACreatinine [Mass/Vol]0.63 mg/dLNormal0.60-1.20[facility] CenterComment on above:Performed By: #### BMP #### [facility] [address] [place] [address] USACreatinine Clr Calc Vivtrxft638.55NormalUniversity Hospitals Portage Medical CenterComment on above:Result Comment: PERFORMED BY: [place] [address] PATHOLOGIST PAYROLL SUPERVISOR FREDY PRICE M.D.Performed By: #### BMP #### [place] [address] USAGFR/1.73 sq M.predicted MDRD (S/P/Bld) [Vol rate/Area] mL/min/{1.73_m2}NormalUniversity Hospitals Portage Medical CenterComment on above: Performed By: #### BMP #### [facility] [address] [place] [address] USAGlucose [Mass/Vol]85 mg/mVHhuwyu43-419ObgvxfxakUniversity Hospitals Portage Medical CenterComment on above:Result Comment: Random Glucose Reference Range is dependent on time and content of last meal. Glucose of more than 200 mg/dL in a nonstressed, ambulatory subject supports the diagnosis of Diabetes Mellitus. ADA recommended reference rangePerformed By: #### BMP #### [facility] [address] [place] [address] USAPotassium [Moles/Vol]4.4 mmol/LNormal3.5-5.1FSt. Anthony's HospitalComment on above:Performed By: #### BMP #### [facility] [address] [place] [address] USASodium [Moles/Vol]137 mmol/GQsxqgu807-013EuaoverdsUniversity Hospitals Portage Medical CenterComment on above:Performed By: #### BMP #### [facility] [address] [place] [address] USAUrea nitrogen [Mass/Vol]14 mg/dLNormal7-25[facility] CenterComment on above:Performed By: #### BMP #### [facility] [address] [place] [address] USAComplete Blood Count Auto Diffon 65-79-0396Yhkqqbzvx (Bld) [#/Vol]0.0 10*3/uLNormal0.0-0.2FSt. Anthony's HospitalComment on above:Result Comment: PERFORMED BY: [place] [address] PATHOLOGIST PAYROLL SUPERVISOR FREDY PRICE M.D.Performed By: #### ESR, CRP #### [place] [address] USABasophils/100 WBC (Bld)0.4 %Normal.[facility] CenterComment on above:Performed By: #### ESR, CRP #### [place] [address] USAEosinophils (Bld) [#/Vol]0.2 10*3/uLNormal0.0-0.45 [facility] CenterComment on above:Performed By: #### ESR, CRP #### [place] [address] USAEosinophils/100 WBC (Bld)1.4 %Normal.[facility] CenterComment on above:Performed By: #### ESR, CRP #### [place] [address] USAErythrocyte distribution width (RBC) [Ratio]14.5 %Normal 11.9-15.3FSt. Anthony's HospitalComment on above:Performed By: #### ESR, CRP #### [facility] [address] [place] [address] USAHematocrit (Bld) [Volume fraction]32.7 %Low34.0-46.4 [facility]age Medical CenterComment on above:Performed By: #### ESR, CRP #### [place] [address] USAHemoglobin (Bld) [Mass/Vol]10.6 g/dLLow11.8-15.4FSt. Anthony's HospitalComment on above:Performed By: #### ESR, CRP #### [place] [address] USALymphocytes (Bld) [#/Vol]1.0 10*3/uLNormal1.00-4.8 [facility] CenterComment on above:Performed By: #### ESR, CRP #### [place] [address] USALymphocytes/100 WBC (Bld)8.7 %Normal.[facility] CenterComment on above:Performed By: #### ESR, CRP #### [place] [address] USAMCH (RBC) [Entitic mass]27.6 lkGoyjtc85.7-34.3FSt. Anthony's HospitalComment on above:Performed By: #### ESR, CRP #### [place] [address] USAMCV (RBC) [Entitic vol]85.4 qGDmqhvh51-493NqxzhurnzUniversity Hospitals Portage Medical CenterComment on above:Performed By: #### ESR, CRP #### [place] [address] USAMean Corpuscular HGB Conc32.3 g/wVHxgwlx52.0-35.0[facility] CenterComselect specialty hospital-pontiac on above:Performed By: #### ESR, CRP #### [place] [address] USAMonocytes (Bld) [#/Vol]0.3 10*3/uLNormal0.0-0.8[facility] CenterComment on above:Performed By: #### ESR, CRP #### [facility] [address] [place] [address] USAMonocytes/100 WBC (Bld)2.7 %Normal.[facility] CenterComment on above:Performed By: #### ESR, CRP #### [facility] [address] [place] [address] USANeutrophils (Bld) [#/Vol]10.4 10*3/uLHigh1.8-7.7FSt. Anthony's HospitalComment on above:Performed By: #### ESR, CRP #### [facility] [address] [place] [address] USANeutrophils/100 WBC (Bld)86.8 %Normal.[facility] CenterComment on above:Performed By: #### ESR, CRP #### [facility] [address] [place] [address] USANRBC%0.1 /100{WBC}Normal0-0.5FSt. Anthony's HospitalComment on above:Performed By: #### ESR, CRP #### [facility] [address] [place] [address] USAPlatelet mean volume (Bld) [Entitic vol]7.6 fLNormal 6.3-10.7FSt. Anthony's HospitalComment on above:Performed By: #### ESR, CRP #### [facility] [address] [place] [address] USAPlatelets (Bld) [#/Vol]450 10*3/uVMqqesx207-019OrmeikmtdUniversity Hospitals Portage Medical CenterComment on above:Performed By: #### ESR, CRP #### [facility] [address] [place] [address] USARBC (Bld) [#/Vol]3.83 10*6/uLNormal3.60-5.00[facility] CenterComment on above:Performed By: #### ESR, CRP #### [facility] [address] [place] [address] USAWBC (Bld) [#/Vol]12.0 10*3/uLHigh3.8-11.6FSt. Anthony's HospitalComment on above:Performed By: #### ESR, CRP #### [facility] [address] [place] [address] USABasic Metabolic Panelon 12-39-8115Ydnzn gap [Moles/Vol] 10.7 mmol/LNormal6.0-15.0[facility] CenterComment on above: Performed By: #### BMP, CBC #### [place] [address] USACalcium [Mass/Vol]7.7 mg/dLLow8.6-10.3FSt. Anthony's HospitalComment on above:Performed By: #### BMP, CBC #### [place] [address] USAChloride [Moles/Vol]101 mmol/WFgwuie11-097TrgsqkcqtUniversity Hospitals Portage Medical CenterComment on above:Performed By: #### BMP, CBC #### [place] [address] USACO2 [Moles/Vol]31.2 mmol/LHigh21.0-31.0[facility] CenterComment on above:Performed By: #### BMP, CBC #### [place] [address] USACreatinine [Mass/Vol]0.71 mg/dLNormal0.60-1.20[facility] CenterComment on above:Performed By: #### BMP, CBC #### [place] [address] USACreatinine Clr Calc Trtkiwha58.38NormRegency Hospital Cleveland EastComment on above:Result Comment: PERFORMED BY: [place] [address] PATHOLOGIST [employer] SUPERVISOR FREDY PRICE M.D.Performed By: #### BMP, CBC #### [place] [address] USAGFR/1.73 sq M.predicted MDRD (S/P/Bld) [Vol rate/Area] mL/min/{1.73_m2}NormalUniversity Hospitals Portage Medical CenterComment on above: Performed By: #### BMP, CBC #### [facility] [address] [place] [address] USAGlucose [Mass/Vol]84 mg/vZAqebic44-886CqsaiwbfvUniversity Hospitals Portage Medical CenterComment on above:Result Comment: Random Glucose Reference Range is dependent on time and content of last meal. Glucose of more than 200 mg/dL in a nonstressed, ambulatory subject supports the diagnosis of Diabetes Mellitus. ADA recommended reference rangePerformed By: #### BMP, CBC #### [place] [address] USAPotassium [Moles/Vol]3.9 mmol/LNormal3.5-5.1FSt. Anthony's HospitalComment on above:Performed By: #### BMP, CBC #### [place] [address] USASodium [Moles/Vol]139 mmol/NGmexev207-133QiznnbccrUniversity Hospitals Portage Medical CenterComment on above:Performed By: #### BMP, CBC #### [place] [address] USAUrea nitrogen [Mass/Vol]17 mg/dLNormal7-25[facility] CenterComment on above:Performed By: #### BMP, CBC #### [place] [address] USAComplete Blood Count Auto Diffon 80-49-9012Azrrzutkd (Bld) [#/Vol]0.1 10*3/uLNormal0.0-0.2FSt. Anthony's HospitalComment on above:Result Comment: PERFORMED BY: [place] [address] PATHOLOGIST [employer] SUPERVISOR FREDY PRICE M.D.Performed By: #### BMP, CBC #### [place] [address] USABasophils/100 WBC (Bld)0.3 %Normal.[facility] CenterComment on above:Performed By: #### BMP, CBC #### [facility] [address] [place] [address] USAEosinophils (Bld) [#/Vol]0.1 10*3/uLNormal0.0-0.45 [facility] CenterComment on above:Performed By: #### BMP, CBC #### [facility] [address] [place] [address] USAEosinophils/100 WBC (Bld)0.9 %Normal.[facility] CenterComment on above:Performed By: #### BMP, CBC #### [place] [address] USAErythrocyte distribution width (RBC) [Ratio]14.2 %Normal 11.9-15.3FSt. Anthony's HospitalComment on above:Performed By: #### BMP, CBC #### [place] [address] USAHematocrit (Bld) [Volume fraction]33.1 %Low34.0-46.4 [facility] CenterComment on above:Performed By: #### BMP, CBC #### [place] [address] USAHemoglobin (Bld) [Mass/Vol]10.6 g/dLLow11.8-15.4FSt. Anthony's HospitalComment on above:Performed By: #### BMP, CBC #### [place] [address] USALymphocytes (Bld) [#/Vol]0.9 10*3/uLLow1.00-4.8[facility] CenterComment on above:Performed By: #### BMP, CBC #### [place] [address] USALymphocytes/100 WBC (Bld)6.1 %Normal.[facility] CenterComment on above:Performed By: #### BMP, CBC #### [place] [address] USAMCH (RBC) [Entitic mass]27.3 kvNhkcuo28.7-34.3FSt. Anthony's HospitalComment on above:Performed By: #### BMP, CBC #### [place] [address] USAMCV (RBC) [Entitic vol]85.5 bXOzhgpw62-994QanoyhbzxUniversity Hospitals Portage Medical CenterComment on above:Performed By: #### BMP, CBC #### [place] [address] USAMean Corpuscular HGB Conc31.9 g/dLLow32.0-35.0[facility] CenterComment on above:Performed By: #### BMP, CBC #### [place] [address] USAMonocytes (Bld) [#/Vol]0.3 10*3/uLNormal0.0-0.8[facility] CenterComment on above:Performed By: #### BMP, CBC #### [place] [address] USAMonocytes/100 WBC (Bld)2.3 %Normal.[facility] CenterComment on above:Performed By: #### BMP, CBC #### [place] [address] USANeutrophils (Bld) [#/Vol]13.5 10*3/uLHigh1.8-7.7FSt. Anthony's HospitalComment on above:Performed By: #### BMP, CBC #### [place] [address] USANeutrophils/100 WBC (Bld)90.4 %Normal.[facility] CenterComment on above:Performed By: #### BMP, CBC #### [place] [address] USANRBC%0.0 /100{WBC}Normal0-0.5FSt. Anthony's HospitalComment on above:Performed By: #### BMP, CBC #### [facility] [address] [place] [address] USAPlatelet mean volume (Bld) [Entitic vol]7.8 fLNormal 6.3-10.7FSt. Anthony's HospitalComment on above:Performed By: #### BMP, CBC #### [facility] [address] [place] [address] USAPlatelets (Bld) [#/Vol]447 10*3/nCYqoxge688-394TlfsffircUniversity Hospitals Portage Medical CenterComment on above:Performed By: #### BMP, CBC #### [facility] [address] [place] [address] USARBC (Bld) [#/Vol]3.87 10*6/uLNormal3.60-5.00[facility] CenterComment on above:Performed By: #### BMP, CBC #### [place] [address] USAWBC (Bld) [#/Vol]14.9 10*3/uLHigh3.8-11.6FSt. Anthony's HospitalComment on above:Performed By: #### BMP, CBC #### [facility] [address] [place] [address] USABasic Metabolic Panelon 88-30-1680Zvdkf gap [Moles/Vol]8.2 mmol/LNormal6.0-15.0[facility] CenterComment on above:Performed By: #### ESR, CRP #### [facility] [address] [place] [address] USACalcium [Mass/Vol]8.1 mg/dLLow8.6-10.3FSt. Anthony's HospitalComment on above:Performed By: #### ESR, CRP #### [facility] [address] [place] [address] USAChloride [Moles/Vol]100 mmol/CHwrgvu84-128GueycqcinUniversity Hospitals Portage Medical CenterComment on above:Performed By: #### ESR, CRP #### [facility] [address] [place] [address] USACO2 [Moles/Vol]34.7 mmol/LHigh21.0-31.0[facility] CenterComment on above:Performed By: #### ESR, CRP #### [facility] [address] [place] [address] USACreatinine [Mass/Vol]0.65 mg/dLNormal0.60-1.20[facility] CenterComment on above:Performed By: #### ESR, CRP #### [facility] [address] [place] [address] USACreatinine Clr Calc Gciwwxrg187.75NormalUniversity Hospitals Portage Medical CenterComment on above:Performed By: #### ESR, CRP #### [facility] [address] [place] [address] USAGFR/1.73 sq M.predicted MDRD (S/P/Bld) [Vol rate/Area] mL/min/{1.73_m2}[facility]ruder HospitalComment on above: Performed By: #### ESR, CRP #### [place] [address] USAGlucose [Mass/Vol]120 mg/tNUrml47-007BuebbqmnrUniversity Hospitals Portage Medical CenterComment on above:Result Comment: Random Glucose Reference Range is dependent on time and content of last meal. Glucose of more than 200 mg/dL in a nonstressed, ambulatory subject supports the diagnosis of Diabetes Mellitus. ADA recommended reference rangePerformed By: #### ESR, CRP #### [facility] [address] [place] [address] USAPotassium [Moles/Vol]3.9 mmol/LNormal3.5-5.1FSt. Anthony's HospitalComment on above:Performed By: #### ESR, CRP #### [facility] [address] [place] [address] USASodium [Moles/Vol]139 mmol/JNtnyfj135-628CohmalabyUniversity Hospitals Portage Medical CenterComment on above:Performed By: #### ESR, CRP #### [facility] [address] [place] [address] USAUrea nitrogen [Mass/Vol]16 mg/dLNormal7-25[facility] CenterComment on above:Performed By: #### ESR, CRP #### [place] [address] USAComplete Blood Count Auto Diffon 24-94-8461Eeutvnyif (Bld) [#/Vol]0.1 10*3/uLNormal0.0-0.2FSt. Anthony's HospitalComment on above:Result Comment: PERFORMED BY: [place] [address] PATHOLOGIST [employer] SUPERVISOR FREDY PRICE M.D.Performed By: #### ESR, CRP #### [place] [address] USABasophils/100 WBC (Bld)0.4 %Normal.[facility] CenterComment on above:Performed By: #### ESR, CRP #### [place] [address] USAEosinophils (Bld) [#/Vol]0.0 10*3/uLNormal0.0-0.45 [facility] CenterComment on above:Performed By: #### ESR, CRP #### [place] [address] USAEosinophils/100 WBC (Bld)0.0 %Normal.[facility] CenterComment on above:Performed By: #### ESR, CRP #### [place] [address] USAErythrocyte distribution width (RBC) [Ratio]14.2 %Normal 11.9-15.3FSt. Anthony's HospitalComment on above:Performed By: #### ESR, CRP #### [place] [address] USAHematocrit (Bld) [Volume fraction]34.8 %Mzemsa64.0-46.4 [facility] CenterComment on above:Performed By: #### ESR, CRP #### [place] [address] USAHemoglobin (Bld) [Mass/Vol]11.1 g/dLLow11.8-15.4FSt. Anthony's HospitalComment on above:Performed By: #### ESR, CRP #### [facility] [address] [place] [address] USALymphocytes (Bld) [#/Vol]0.9 10*3/uLLow1.00-4.8[facility] CenterComment on above:Performed By: #### ESR, CRP #### [facility] [address] [place] [id number] USALymphocytes/100 WBC (Bld)3.6 %Normal.[facility] CenterComment on above:Performed By: #### ESR, CRP #### [facility] [address] [place] [address] USAMCH (RBC) [Entitic mass]27.0 xdEosyeb55.7-34.3FSt. Anthony's HospitalComment on above:Performed By: #### ESR, CRP #### [facility] [address] [place] [address] USAMCV (RBC) [Entitic vol]84.5 jIWfywmj87-454FyajhmnuzUniversity Hospitals Portage Medical CenterComment on above:Performed By: #### ESR, CRP #### [facility] [address] [place] [address] USAMean Corpuscular HGB Conc32.0 g/gDKpgpfs39.0-35.0[facility] CenterComment on above:Performed By: #### ESR, CRP #### [facility] [address] [place] [address] USAMonocytes (Bld) [#/Vol]0.5 10*3/uLNormal0.0-0.8[facility] CenterComment on above:Performed By: #### ESR, CRP #### [facility] [address] [place] [address] USAMonocytes/100 WBC (Bld)2.3 %Normal.[facility] CenterComment on above:Performed By: #### ESR, CRP #### [facility] [address] [place] [address] USANeutrophils (Bld) [#/Vol]22.4 10*3/uLHigh1.8-7.7FSt. Anthony's HospitalComment on above:Performed By: #### ESR, CRP #### [facility] [address] [place] [address] USANeutrophils/100 WBC (Bld)93.7 %Normal.[facility] CenterComment on above:Performed By: #### ESR, CRP #### [facility] [address] [place] [address] USANRBC%0.0 /100{WBC}Normal0-0.5FSt. Anthony's HospitalComment on above:Performed By: #### ESR, CRP #### [facility] [address] [place] [address] USAPlatelet mean volume (Bld) [Entitic vol]8.1 fLNormal 6.3-10.7FSt. Anthony's HospitalComment on above:Performed By: #### ESR, CRP #### [place] [address] USAPlatelets (Bld) [#/Vol]398 10*3/sHImiszt652-798XxkyvtgtfUniversity Hospitals Portage Medical CenterComment on above:Performed By: #### ESR, CRP #### [facility] [address] [place] [address] USARBC (Bld) [#/Vol]4.12 10*6/uLNormal3.60-5.00[facility] CenterComment on above:Performed By: #### ESR, CRP #### [place] [address] USAWBC (Bld) [#/Vol]23.9 10*3/uLHigh3.8-11.6FSt. Anthony's HospitalComment on above:Performed By: #### ESR, CRP #### [place] [address] USAECG 12 lead ECGon [id number] 12 lead ECGCHERRINGTON [facility] [place] [address] [place] [address] Electrocardiograph Report Signed Patient: Laura Tyler MR#: [id number] : 1965 Acct:[id number] Age/Sex: 57 / F ADM Date: 03/26/23 Loc: Room: [address] [place] [address] Type: ADM IN Attending Dr: Arabella Bynum [...] increased in Inferior leads Confirmed by NISHANT ARREAGA MD ([facility]) on 03/30/2023 4:27:00 PM Referred By: Electronically Signed By:NISHANT ARREAGA MD Transcribed By: MUS Signed By Nishant Arreaga MD 0 03/30/23 1627Magruder HospitalMagnesiumon 03-30-2023 Magnesium [Mass/Vol]1.8 mg/dLLow1.9-2.7FSt. Anthony's HospitalComment on above:Result Comment: PERFORMED BY: [place] [id number] PATHOLOGIST [employer] SUPERVISOR FREDY PRICE M.D.Performed By: #### ESR, CRP #### [place] [id number] USAAerobic Cultureon [id number] CultureORGANISM: Streptococcus pyogenes grp A (O:STRPYO) Comments Organism Not Routinely Tested for Susceptibilities Quantity of Growth Light Growth No Anaerobes Isolated 3 Days Gram Stain Result 1+ White Blood Cells Rare Gram Positive Cocci PERFORMED BY: [address] [address] PATHOLOGIST PAYROLL SUPERVISOR FREDY PRICE M.D.[facility]ruder HospitalComment on above: Performed By: #### BMP, CBC #### [facility] [address] [place] [address] USABasic Metabolic Panelon [id number] gap [Moles/Vol]9.8 mmol/LNormal6.0-15.0[facility] CenterComment on above:Performed By: #### BMP, CBC #### [facility] [address] [place] [address] USACalcium [Mass/Vol]8.2 mg/dLLow8.6-10.3FSt. Anthony's HospitalComment on above:Performed By: #### BMP, CBC #### [facility] [address] [place] [address] USAChloride [Moles/Vol]100 mmol/DXvcdag46-007NsbldxdseUniversity Hospitals Portage Medical CenterComment on above:Performed By: #### BMP, CBC #### [facility] [address] [place] [address] USACO2 [Moles/Vol]31.7 mmol/LHigh21.0-31.0[facility] CenterComment on above:Performed By: #### BMP, CBC #### [place] [address] USACreatinine [Mass/Vol]0.60 mg/dLNormal0.60-1.20[facility] CenterComment on above:Performed By: #### BMP, CBC #### [facility] [address] [place] [address] USACreatinine Clr Calc Dclkfrpr567.56NormalUniversity Hospitals Portage Medical CenterComment on above:Result Comment: PERFORMED BY: [place] [address] PATHOLOGIST [employer] SUPERVISOR FREDY PRICE M.D.Performed By: #### BMP, CBC #### [place] [address] USAGFR/1.73 sq M.predicted MDRD (S/P/Bld) [Vol rate/Area] mL/min/{1.73_m2}[facility]uder HospitalComment on above: Performed By: #### BMP, CBC #### [facility] [address] [place] [address] USAGlucose [Mass/Vol]92 mg/mOElpqjt26-589UhyrdgkboUniversity Hospitals Portage Medical CenterComment on above:Result Comment: Random Glucose Reference Range is dependent on time and content of last meal. Glucose of more than 200 mg/dL in a nonstressed, ambulatory subject supports the diagnosis of Diabetes Mellitus. ADA recommended reference rangePerformed By: #### BMP, CBC #### [facility] [address] [place] [address] USAPotassium [Moles/Vol]3.5 mmol/LNormal3.5-5.1FSt. Anthony's HospitalComment on above:Performed By: #### BMP, CBC #### [place] [address] USASodium [Moles/Vol]138 mmol/GGslttr835-899BrggnfqxkUniversity Hospitals Portage Medical CenterComment on above:Performed By: #### BMP, CBC #### [place] [address] USAUrea nitrogen [Mass/Vol]9 mg/dLNormal7-25[facility] CenterComment on above:Performed By: #### BMP, CBC #### [place] [address] USAComplete Blood Count Auto Diffon [id number] (Bld) [#/Vol]0.1 10*3/uLNormal0.0-0.2FSt. Anthony's HospitalComment on above:Result Comment: PERFORMED BY: [place] [address] PATHOLOGIST [employer]LL SUPERVISOR FREDY PRICE M.D.Performed By: #### BMP, CBC #### [place] [address] USABasophils/100 WBC (Bld)0.3 %Normal.[facility] CenterComment on above:Performed By: #### BMP, CBC #### [place] [address] USAEosinophils (Bld) [#/Vol]0.2 10*3/uLNormal0.0-0.45 [facility] CenterComment on above:Performed By: #### BMP, CBC #### [facility] [address] [place] [address] USAEosinophils/100 WBC (Bld)1.0 %Normal.[facility] CenterComment on above:Performed By: #### BMP, CBC #### [facility] [address] [place] [address] USAErythrocyte distribution width (RBC) [Ratio]14.3 %Normal 11.9-15.3FSt. Anthony's HospitalComment on above:Performed By: #### BMP, CBC #### [place] [address] USAHematocrit (Bld) [Volume fraction]35.2 %Zqkgqf28.0-46.4 [facility] CenterComment on above:Performed By: #### BMP, CBC #### [facility] [address] [place] [address] USAHemoglobin (Bld) [Mass/Vol]11.4 g/dLLow11.8-15.4FSt. Anthony's HospitalComment on above:Performed By: #### BMP, CBC #### [place] [address] USALymphocytes (Bld) [#/Vol]1.0 10*3/uLNormal1.00-4.8 [facility] CenterComselect specialty hospital-pontiac on above:Performed By: #### BMP, CBC #### [facility] [address] [place] [address] USALymphocytes/100 WBC (Bld)4.7 %Normal.[facility] CenterComment on above:Performed By: #### BMP, CBC #### [facility] [address] [place] [address] USAMCH (RBC) [Entitic mass]27.3 ahHgdkmt57.7-34.3FSt. Anthony's HospitalComment on above:Performed By: #### BMP, CBC #### [facility] [address] [place] [address] USAMCV (RBC) [Entitic vol]84.1 oQSfgyxm63-501UkqmrwgbwUniversity Hospitals Portage Medical CenterComment on above:Performed By: #### BMP, CBC #### [facility] [address] [place] [address] USAMean Corpuscular HGB Conc32.5 g/aATtlcla63.0-35.0[facility] CenterComment on above:Performed By: #### BMP, CBC #### [facility] [address] [place] [address] USAMonocytes (Bld) [#/Vol]0.8 10*3/uLNormal0.0-0.8[facility] CenterComment on above:Performed By: #### BMP, CBC #### [facility] [address] [place] [address] USAMonocytes/100 WBC (Bld)3.8 %Normal.[facility] CenterComment on above:Performed By: #### BMP, CBC #### [facility] [address] [place] [address] USANeutrophils (Bld) [#/Vol]18.4 10*3/uLHigh1.8-7.7FSt. Anthony's HospitalComment on above:Performed By: #### BMP, CBC #### [facility] [address] [place] [address] USANeutrophils/100 WBC (Bld)90.2 %Normal.[facility] CenterComment on above:Performed By: #### BMP, CBC #### [facility] [address] [place] [address] USANRBC%0.0 /100{WBC}Normal0-0.5FSt. Anthony's HospitalComment on above:Performed By: #### BMP, CBC #### [facility] [address] [place] [address] USAPlatelet mean volume (Bld) [Entitic vol]8.2 fLNormal 6.3-10.7FSt. Anthony's HospitalComment on above:Performed By: #### BMP, CBC #### [facility] [address] [place] [address] USAPlatelets (Bld) [#/Vol]368 10*3/kOWmgxgj674-329UgsvsnoqxUniversity Hospitals Portage Medical CenterComment on above:Performed By: #### BMP, CBC #### [facility] [address] [place] [address] USARBC (Bld) [#/Vol]4.18 10*6/uLNormal3.60-5.00[facility] CenterComment on above:Performed By: #### BMP, CBC #### [facility] [address] [place] [address] USAWBC (Bld) [#/Vol]20.4 10*3/uLHigh3.8-11.6FSt. Anthony's HospitalComment on above:Performed By: #### BMP, CBC #### [facility] [address] [place] [address] USABasic Metabolic Panelon 69-24-2101Wsxfe gap [Moles/Vol] 10.1 mmol/LNormal6.0-15.0[facility] CenterComment on above: Performed By: #### BMP, CBC #### [facility] [address] [place] [address] USACalcium [Mass/Vol]8.0 mg/dLLow8.6-10.3FSt. Anthony's HospitalComment on above:Performed By: #### BMP, CBC #### [facility] [address] [place] [address] USAChloride [Moles/Vol]101 mmol/TLbrbok71-795VdskodjbpUniversity Hospitals Portage Medical CenterComment on above:Performed By: #### BMP, CBC #### [facility] [address] [place] [address] USACO2 [Moles/Vol]29.2 mmol/DYevkml06.0-31.0[facility] CenterComment on above:Performed By: #### BMP, CBC #### [facility] [address] [place] [address] USACreatinine [Mass/Vol]0.68 mg/dLNormal0.60-1.20[facility] CenterComment on above:Performed By: #### BMP, CBC #### [facility] [address] [place] [address] USACreatinine Clr Calc Wnadidce62.34NormalUniversity Hospitals Portage Medical CenterComment on above:Result Comment: PERFORMED BY: [facility] [address] [place] [address] PATHOLOGIST [employer]LL SUPERVISOR FREDY PRICE M.D.Performed By: #### BMP, CBC #### [facility] [address] [place] [address] USAGFR/1.73 sq M.predicted MDRD (S/P/Bld) [Vol rate/Area] mL/min/{1.73_m2}NormalUniversity Hospitals Portage Medical CenterComment on above: Performed By: #### BMP, CBC #### [place] [address] USAGlucose [Mass/Vol]92 mg/wQYzlthn03-754ZbajqydhkUniversity Hospitals Portage Medical CenterComment on above:Result Comment: Random Glucose Reference Range is dependent on time and content of last meal. Glucose of more than 200 mg/dL in a nonstressed, ambulatory subject supports the diagnosis of Diabetes Mellitus. ADA recommended reference rangePerformed By: #### BMP, CBC #### [place] [address] USAPotassium [Moles/Vol]3.3 mmol/LLow3.5-5.1FSt. Anthony's HospitalComment on above:Performed By: #### BMP, CBC #### [facility] [address] [place] [address] USASodium [Moles/Vol]137 mmol/OUblnmi525-242MgqfalslcUniversity Hospitals Portage Medical CenterComment on above:Performed By: #### BMP, CBC #### [facility] [address] [place] [address] USAUrea nitrogen [Mass/Vol]9 mg/dLNormal7-25University Hospitals Portage Medical CenterComment on above:Performed By: #### BMP, CBC #### [place] [address] USABlood Cultureon 88-52-6618Yrxissrr identified Cx Nom (Bld) NO GROWTH 5 DAYS PERFORMED BY: [place] [address] PATHOLOGIST PAYROLL SUPERVISOR FREDY PRICE M.D.Magruder HospitalComment on above: Performed By: #### BMP, CBC #### [place] [address] USAC-Reactive Proteinon 37-58-5463F-Reactive Esgnlwr54.4 mg/dLHigh0.0-0.5FSt. Anthony's HospitalComment on above:Result Comment: PERFORMED BY: [place] [address] PATHOLOGIST PAYROLL SUPERVISOR FREDY PRICE M.D.Performed By: #### ESR, CRP #### [place] [address] USACT forearm LT w conon [id number] forearm LT w con [facility] [place] [address] [place] [address] CT Scan Report Signed Patient: Laura Tyler MR#: [id number] : 1965 Acct:[id number] Age/Sex: 57 / F ADM Date: 03/26/23 Loc: Room: [address] [place] [address] Type: ADM IN Attending Dr: John Kimball MD Copies to: MD Janny Staples DO Ordering Provider: Janny Concepcion DO Date of Service: 03/28/23 CT/CT humerus LT w con: cellulitis ([id number]) CT/CT forearm LT w con: cellulitis CT [...] are noted which are presumed to be inflammatory/infectious in nature. CT/CT humerus LT w con IMPRESSION: Findings consistent with cellulitis in the left upper arm and forearm. No evidence of osteomyelitis or abscess. Reactive lymph nodes are noted in the left axilla. Impression dictated by: Braden Rae M.D.03/28/2023 12:19 PM Dictation Location: [place] [address] Transcribed By: [facility] 03/28/23 1219 Dictated By: Braden Rae II, MD 03/28/23 1212 Signed By: 03/28/23 1219Magruder HospitalComplete Blood Count Auto Diffon 09-08-6455Pdhzaacdb (Bld) [#/Vol]0.1 10*3/uLNormal0.0-0.2FSt. Anthony's HospitalComment on above:Result Comment: PERFORMED BY: [place] [address] PATHOLOGIST PAYROLL SUPERVISOR FREDY PRICE M.D.Performed By: #### BMP, CBC #### [facility] [address] [place] [address] USABasophils/100 WBC (Bld)0.4 %Normal.University Hospitals Portage Medical CenterComment on above:Performed By: #### BMP, CBC #### [facility] [address] [place] [address] USAEosinophils (Bld) [#/Vol]0.2 10*3/uLNormal0.0-0.45 [facility] Portage Medical CenterComment on above:Performed By: #### BMP, CBC #### [facility] [address] [place] [address] USAEosinophils/100 WBC (Bld)1.1 %Normal.[facility] Hospitals Portage Medical CenterComment on above:Performed By: #### BMP, CBC #### [facility] [address] [place] [address] USAErythrocyte distribution width (RBC) [Ratio]14.7 %Normal 11.9-15.3FSt. Anthony's HospitalComment on above:Performed By: #### BMP, CBC #### [facility] [address] [place] [address] USAHematocrit (Bld) [Volume fraction]36.0 %Twbquu46.0-46.4 [facility] Portage Medical CenterComment on above:Performed By: #### BMP, CBC #### [place] [address] USAHemoglobin (Bld) [Mass/Vol]11.6 g/dLLow11.8-15.4FSt. Anthony's HospitalComment on above:Performed By: #### BMP, CBC #### [place] [address] USALymphocytes (Bld) [#/Vol]0.9 10*3/uLLow1.00-4.8[facility] Portage Medical CenterComselect specialty hospital-pontiac on above:Performed By: #### BMP, CBC #### [facility] [address] [place] [id number] USALymphocytes/100 WBC (Bld)4.3 %Normal.[facility]als Portage Medical CenterComment on above:Performed By: #### BMP, CBC #### [place] [address] USAMCH (RBC) [Entitic mass]27.2 wpAalred95.7-34.3FSt. Anthony's HospitalComment on above:Performed By: #### BMP, CBC #### [place] [address] USAMCV (RBC) [Entitic vol]84.7 bSOpwzsx23-925EetexuvdjUniversity Hospitals Portage Medical CenterComment on above:Performed By: #### BMP, CBC #### [facility] [address] [place] [address] USAMean Corpuscular HGB Conc32.2 g/nGRgjqww48.0-35.0University [facility] Portage Medical CenterComment on above:Performed By: #### BMP, CBC #### [place] [address] USAMonocytes (Bld) [#/Vol]1.0 10*3/uLHigh0.0-0.8[facility]als Portage Medical CenterComment on above:Performed By: #### BMP, CBC #### [place] [address] USAMonocytes/100 WBC (Bld)4.7 %Normal.[facility]als Portage Medical CenterComment on above:Performed By: #### BMP, CBC #### [place] [address] USANeutrophils (Bld) [#/Vol]18.7 10*3/uLHigh1.8-7.7FSt. Anthony's HospitalComment on above:Performed By: #### BMP, CBC #### [place] [address] USANeutrophils/100 WBC (Bld)89.5 %Normal.[facility] Portage Medical CenterComment on above:Performed By: #### BMP, CBC #### [place] [address] USANRBC%0.0 /100{WBC}Normal0-0.5FSt. Anthony's HospitalComment on above:Performed By: #### BMP, CBC #### [place] [address] USAPlatelet mean volume (Bld) [Entitic vol]8.6 fLNormal 6.3-10.7FSt. Anthony's HospitalComment on above:Performed By: #### BMP, CBC #### [place] [address] USAPlatelets (Bld) [#/Vol]329 10*3/mSOckmum711-115XzrznxmfbUniversity Hospitals Portage Medical CenterComment on above:Performed By: #### BMP, CBC #### [facility] [address] [place] [address] USARBC (Bld) [#/Vol]4.25 10*6/uLNormal3.60-5.00[facility] Portage Medical CenterComment on above:Performed By: #### BMP, CBC #### [facility] [address] [place] [address] USAWBC (Bld) [#/Vol]20.8 10*3/uLHigh3.8-11.6FSt. Anthony's HospitalComment on above:Performed By: #### BMP, CBC #### [facility] [address] [place] [address] USAECG 12 lead ECGon 20-30-5775EAN 12 lead ECGCHERRINGTON [facility]OS[facility]ITAL [facility] [place] [address] [place] [address] Electrocardiograph Report Signed Patient: Laura Tyler MR#: [id number] : 1965 Acct:[id number] Age/Sex: 57 / F ADM Date: 03/26/23 Loc: Room: [address] [place] [address] Type: ADM IN Attending Dr: John Kimball [...] MUS Signed By Zi Luna DO 03/[address] [place], [place] [address]Erythrocyte Sedimentation Rateon 78-31-0111GDY (Bld) [Velocity]79 mm/hHigh0-29[facility] Comment on above:Result Comment: PERFORMED BY: [address] [place] [address] PATHOLOGIST PAYROLL SUPERVISOR FREDY PRICE M.D.Performed By: #### ESR, CRP #### [place] [address] USAHCG,Quantitativeon 57-38-4626BRB,Quantitative1.38 m[iU]/mL NormalUniversity Hospitals Portage Medical CenterComment on above:Result Comment: Approximate Approximate hCG Gestational Age Range (mIU/ml) (weeks) 0.2-1 5-50 1-2 50-500 2-3 100-5,000 3-4 500-10,000 4-5 1,000-50,000 5-6 10,000-100,000 6-8 15,000-200,000 8-12 10,000-100,000 PERFORMED BY: [place] [address] PATHOLOGIST PAYROLL SUPERVISOR FREDY PRICE M.D.Performed By: #### BMP, CBC #### [place] [address] USABasic Metabolic Panelon 11-06-1398Awcsi gap [Moles/Vol] 11.6 mmol/LNormal6.0-15.0[facility] Portage Medical CenterComment on above: Performed By: #### ESR, CRP #### [place] [address] USACalcium [Mass/Vol]8.2 mg/dLLow8.6-10.3FSt. Anthony's HospitalComment on above:Performed By: #### ESR, CRP #### [place] [address] USAChloride [Moles/Vol]103 mmol/LOmqznw21-570KwasrkqkhUniversity Hospitals Portage Medical CenterComment on above:Performed By: #### ESR, CRP #### [place] [id number] USACO2 [Moles/Vol]26.5 mmol/VVwtrhs26.0-31.0[facility] Medical CenterComment on above:Performed By: #### ESR, CRP #### [place] [address] USACreatinine [Mass/Vol]0.74 mg/dLNormal0.60-1.20[facility] Medical CenterComment on above:Performed By: #### ESR, CRP #### [place] [address] USACreatinine Clr Calc Onxjgygs10.17NormalUniversity Hospitals Portage Medical CenterComment on above:Result Comment: PERFORMED BY: [place] [address] PATHOLOGIST PAYROLL SUPERVISOR FREDY PRICE M.D.Performed By: #### ESR, CRP #### [place] [address] USAGFR/1.73 sq M.predicted MDRD (S/P/Bld) [Vol rate/Area] mL/min/{1.73_m2}NormalUniversity Hospitals Portage Medical CenterComment on above: Performed By: #### ESR, CRP #### [place] [address] USAGlucose [Mass/Vol]98 mg/tWMfhsjx37-059AmyutukanUniversity Hospitals Portage Medical CenterComment on above:Result Comment: Random Glucose Reference Range is dependent on time and content of last meal. Glucose of more than 200 mg/dL in a nonstressed, ambulatory subject supports the diagnosis of Diabetes Mellitus. ADA recommended reference rangePerformed By: #### ESR, CRP #### [place] [address] USAPotassium [Moles/Vol]3.1 mmol/LLow3.5-5.1FSt. Anthony's HospitalComment on above:Performed By: #### ESR, CRP #### [place] [address] USASodium [Moles/Vol]138 mmol/NHfdoyx670-894TmncdaezoUniversity Hospitals Portage Medical CenterComment on above:Performed By: #### ESR, CRP #### [facility] [address] [place] [address] USAUrea nitrogen [Mass/Vol]12 mg/dLNormal7-25[facility] Medical CenterComment on above:Performed By: #### ESR, CRP #### [facility] [address] [place] [address] USAComplete Blood Count Auto Diffon 20-33-4066Egoginyzd (Bld) [#/Vol]0.2 10*3/uLNormal0.0-0.2FSt. Anthony's HospitalComment on above:Result Comment: PERFORMED BY: [place] [address] PATHOLOGIST PAYROLL SUPERVISOR FREDY PRICE M.D.Performed By: #### CBC, BMP #### [facility] [address] [place] [address] USABasophils/100 WBC (Bld)0.7 %Normal.[facility] Port[facility] Medical CenterComment on above:Performed By: #### CBC, BMP #### [facility] [address] [place] [address] USAEosinophils (Bld) [#/Vol]0.1 10*3/uLNormal0.0-0.45 [facility] Medical CenterComment on above:Performed By: #### CBC, BMP #### [facility] [address] [place] [address] USAEosinophils/100 WBC (Bld)0.5 %Normal.[facility] Port[facility] Medical CenterComment on above:Performed By: #### CBC, BMP #### [facility] [address] [place] [address] USAErythrocyte distribution width (RBC) [Ratio]14.4 %Normal 11.9-15.3FSt. Anthony's HospitalComselect specialty hospital-pontiac on above:Performed By: #### CBC, BMP #### [facility] [address] [place] [address] USAHematocrit (Bld) [Volume fraction]35.0 %Ateyvw18.0-46.4 [facility] Medical CenterComment on above:Performed By: #### CBC, BMP #### [facility] [address] [place] [address] USAHemoglobin (Bld) [Mass/Vol]11.1 g/dLLow11.8-15.4FSt. Anthony's HospitalComment on above:Performed By: #### CBC, BMP #### [facility] [address] [place] [address] USALymphocytes (Bld) [#/Vol]0.8 10*3/uLLow1.00-4.8[facility] Medical CenterComment on above:Performed By: #### CBC, BMP #### [facility] [address] [place] [address] USALymphocytes/100 WBC (Bld)3.4 %Normal.[facility] Port[facility] Medical CenterComment on above:Performed By: #### CBC, BMP #### [facility] [address] [place] [address] USAMCH (RBC) [Entitic mass]26.8 zrKqklvg09.7-34.3FSt. Anthony's HospitalComment on above:Performed By: #### CBC, BMP #### [place] [address] USAMCV (RBC) [Entitic vol]84.3 iUYvqldj05-814IiatjxvucUniversity Hospitals Portage Medical CenterComment on above:Performed By: #### CBC, BMP #### [facility] [address] [place] [address] USAMean Corpuscular HGB Conc31.8 g/dLLow32.0-35.0[facility] Medical CenterComment on above:Performed By: #### CBC, BMP #### [facility] [address] [place] [address] USAMonocytes (Bld) [#/Vol]1.1 10*3/uLHigh0.0-0.8[facility] Medical CenterComment on above:Performed By: #### CBC, BMP #### [place] [address] USAMonocytes/100 WBC (Bld)4.8 %Normal.[facility] Medical CenterComment on above:Performed By: #### CBC, BMP #### [facility] [address] [place] [address] USANeutrophils (Bld) [#/Vol]21.6 10*3/uLHigh1.8-7.7FSt. Anthony's HospitalComment on above:Performed By: #### CBC, BMP #### [facility] [address] [place] [address] USANeutrophils/100 WBC (Bld)90.6 %Normal.[facility] Port[facility] Medical CenterComment on above:Performed By: #### CBC, BMP #### [place] [address] USANRBC%0.0 /100{WBC}Normal0-0.5FSt. Anthony's HospitalComment on above:Performed By: #### CBC, BMP #### [facility] [address] [place] [address] USAPlatelet mean volume (Bld) [Entitic vol]8.5 fLNormal 6.3-10.7FSt. Anthony's HospitalComment on above:Performed By: #### CBC, BMP #### [place] [address] USAPlatelets (Bld) [#/Vol]319 10*3/zYMynhfl939-577ZqpprlqsdUniversity Hospitals Portage Medical CenterComment on above:Performed By: #### CBC, BMP #### [facility] [address] [place] [address] USARBC (Bld) [#/Vol]4.15 10*6/uLNormal3.60-5.00[facility] Medical CenterComment on above:Performed By: #### CBC, BMP #### [place] [address] USAWBC (Bld) [#/Vol]23.9 10*3/uLHigh3.8-11.6FSt. Anthony's HospitalComment on above:Performed By: #### CBC, BMP #### [address] [place] [address] USABasic Metabolic Panelon 60-30-4494Ghluz gap [Moles/Vol] 11.4 mmol/LNormal6.0-15.0[facility] Medical CenterComment on above: Performed By: #### ESR, CRP #### [place] [address] USACalcium [Mass/Vol]8.2 mg/dLLow8.6-10.3FSt. Anthony's HospitalComment on above:Performed By: #### ESR, CRP #### [place] [address] USAChloride [Moles/Vol]106 mmol/XJkeony06-346BrfiqdcldUniversity Hospitals Portage Medical CenterComment on above:Performed By: #### ESR, CRP #### [place] [address] USACO2 [Moles/Vol]24.9 mmol/DTgrpxg96.0-31.0[facility] Medical CenterComment on above:Performed By: #### ESR, CRP #### [place] [address] USACreatinine [Mass/Vol]0.77 mg/dLNormal0.60-1.20[facility] Medical CenterComment on above:Performed By: #### ESR, CRP #### [place] [address] USACreatinine Clr Calc Hxnsdllx61.65NormalUniversity Hospitals Portage Medical CenterComment on above:Result Comment: PERFORMED BY: [place] [address] PATHOLOGIST PAYROLL SUPERVISOR FREDY PRICE M.D.Performed By: #### ESR, CRP #### [place] [address] USAGFR/1.73 sq M.predicted MDRD (S/P/Bld) [Vol rate/Area] mL/min/{1.73_m2}NormalUniversity Hospitals Portage Medical CenterComment on above: Performed By: #### ESR, CRP #### [address] [place] [address] USAGlucose [Mass/Vol]83 mg/iJHmmpkg76-829MxntueykoUniversity Hospitals Portage Medical CenterComment on above:Result Comment: Random Glucose Reference Range is dependent on time and content of last meal. Glucose of more than 200 mg/dL in a nonstressed, ambulatory subject supports the diagnosis of Diabetes Mellitus. ADA recommended reference rangePerformed By: #### ESR, CRP #### [place] [address] USAPotassium [Moles/Vol]3.3 mmol/LLow3.5-5.1FSt. Anthony's HospitalComment on above:Performed By: #### ESR, CRP #### [place] [address] USASodium [Moles/Vol]139 mmol/ROqnfiy220-024XxzemrpiyUniversity Hospitals Portage Medical CenterComment on above:Performed By: #### ESR, CRP #### [place] [address] USAUrea nitrogen [Mass/Vol]20 mg/dLNormal7-25[facility] CenterComment on above:Performed By: #### ESR, CRP #### [place] [address] USAC-Reactive Proteinon 78-16-5452O-Reactive Esgimfd71.9 mg/dLHigh0.0-0.5FSt. Anthony's HospitalComment on above:Result Comment: PERFORMED BY: [place] [address] PATHOLOGIST PAYROLL SUPERVISOR FREDY PRICE M.D.Performed By: #### CRP, ESR #### [place] [address] USACBC AUTO DIFFon 70-77-9801Xykeezkaw/100 WBC (Bld)0.2 % Normal.The [facility] Medical CenterComment on above:Performed By: #### SEDR #### [facility] [address] [place] [address] [address] Virgil PurdyPerformed By: #### ESR, CRP #### [address] [place] [address] USAErythrocyte distribution width (RBC) [Ratio]14.5 %Normal 11.9-15.3The [facility] Medical CenterComment on above:Performed By: #### SEDR #### [facility] [address] [place] [address] Dr. Virgil PurdyPerformed By: #### ESR, CRP #### [facility] [address] [place] [address] USABASO #0.0 103/ulNormal0.0-0.1The [facility]ipomo HospitalComment on above:Performed By: #### SEDR #### [facility] [address] [place] [address] Dr. Virgil Sage #0.1 103/ulNormal0.0-0.7The [facility] Medical CenterComment on above: Performed By: #### SEDR #### [facility] [address] [place] [address] Dr. Virgil Garzaosinophils/100 WBC (Bld)0.3 %Critically low0.9-7.0[facility] Medical CenterComment on above:Performed By: #### SEDR #### [facility] [address] [place] [address] Dr. Virgil PurdyHematocrit (Bld) [Volume fraction]31.0 %Critically low36.0-48.0 The [facility] CenterComment on above:Performed By: #### SEDR #### [facility] [address] [place] [address] Dr. Virgil PurdyHemoglobin (Bld) [Mass/Vol]10.2 g/dLCritically low12.0-16.0The [facility] CenterComment on above:Performed By: #### SEDR #### [facility] [address] [place] [address] Dr. Virgil Dykes #0.42 10e3/ulCritically high0.00-0.03The [facility] Comment on above:Performed By: #### SEDR #### [facility] [address] [place] [address] Dr. Virgil Dykes %2.4 %Critically high0.0-0.5The [facility] Medical CenterComment on above:Performed By: #### SEDR #### [facility] [address] [place] [address] Dr. Virgil Golden #0.9 103/ulCritically low1.2-3.8ThPremier Health [facility] Comment on above:Performed By: #### SEDR #### [facility] [address] [place] [address] Dr. Virgil Tabareshocytes/100 WBC (Bld)5.0 %Critically low20.5-60.0The [facility] Medical CenterComment on above:Performed By: #### SEDR #### [facility] [address] [place] [address] Dr. Virgil Womack DIFF REQNONormalThe [facility] Medical CenterComment on above: Performed By: #### SEDR #### [facility] [address] [place] [address] Dr. Virgil Taylor (RBC) [Entitic mass]27.9 abAnqzsz34.7-34.0The [facility] CenterComment on above:Performed By: #### SEDR #### [facility] [address] [place] [address] Dr. Virgil Samuel (RBC) [Mass/Vol]32.9 g/sSYorjck78.9-35.2The [facility] CenterComment on above:Performed By: #### SEDR #### [facility] [address] [place] [address] Dr. Virgil Pereira (RBC) [Entitic vol]84.9 fYXyncnu71.0-99.0The [facility] CenterComment on above:Performed By: #### SEDR #### [facility] [address] [place] [address] Dr. Virgil Patterson #1.1 103/ulCritically high0.3-0.8The [facility] Comment on above:Performed By: #### SEDR #### [facility] [address] [place] [address] Dr. Virgil Pickesnocytes/100 WBC (Bld)6.4 %Normal1.7-12.0The [facility] Comment on above:Performed By: #### SEDR #### [facility] [address] [place] [address] Dr. Virgil Martin #15.1 103/ulCritically high1.4-6.5The [facility] Comment on above:Performed By: #### SEDR #### [facility] [address] [place] [address] Dr. Virgil Hernandezutrophils/100 WBC (Bld)85.7 %Critically high43.0-75.0The [facility] CenterComment on above:Performed By: #### SEDR #### [facility] [address] [place] [address] Dr. Virgil PurdyPlatelet mean volume (Bld) [Entitic vol]11.2 fLNormal9.5-13.5The [facility] CenterComment on above:Performed By: #### SEDR #### [facility] [address] [place] [address] Dr. Virgil PurdyPLT244 103/omTjxgcg594-308Rkw [facility] CenterComment on above: Performed By: #### SEDR #### [facility] [address] [place] [address] Dr. Virgil PurdyRBC3.65 106/ulCritically low4.20-5.40The [facility] CenterComment on above:Performed By: #### SEDR #### [facility] [address] [place] [address] Dr. Virgil PurdyWBC17.7 103/ulCritically high4.0-11.0The [facility] CenterComment on above:Performed By: #### SEDR #### [facility] [address] [place] [address] Dr. Virgil Chinchilla 26-89-6605CSB64.8 mg/dLCritically high<=1.0The [facility] CenterComment on above:Performed By: #### PT #### [facility] [address] [place], [place] [address] Dr. Virgil PurdyComplete Blood Count Auto Diffon 44-73-6192Tcyufgkhc (Bld) [#/Vol]0.0 10*3/uLNormal0.0-0.2FSt. Anthony's HospitalComment on above:Result Comment: PERFORMED BY: [facility] [address] [place] [address] PATHOLOGIST PAYROLL SUPERVISOR FREDY PRICE M.D.Performed By: #### ESR, CRP #### [facility] [address] [place] [address] USAEosinophils (Bld) [#/Vol]0.1 10*3/uLNormal0.0-0.45 [facility] CenterComment on above:Performed By: #### ESR, CRP #### [facility] [address] [place] [address] USAEosinophils/100 WBC (Bld)0.5 %Normal.[facility] Medical CenterComment on above:Performed By: #### ESR, CRP #### [facility] [address] [place] [address] USAHematocrit (Bld) [Volume fraction]36.2 %Nwwyte24.0-46.4 [facility] CenterComment on above:Performed By: #### ESR, CRP #### [facility] [address] [place] [address] USAHemoglobin (Bld) [Mass/Vol]11.5 g/dLLow11.8-15.4FSt. Anthony's HospitalComment on above:Performed By: #### ESR, CRP #### [facility] [address] [place] [address] USALymphocytes (Bld) [#/Vol]0.9 10*3/uLLow1.00-4.8[facility] CenterComment on above:Performed By: #### ESR, CRP #### [facility] [address] [place] [address] USALymphocytes/100 WBC (Bld)4.2 %Normal.[facility] Medical CenterComment on above:Performed By: #### ESR, CRP #### [facility] [address] (RBC) [Entitic mass]27.0 faPamhhf73.7-34.3FSt. Anthony's HospitalComment on above:Performed By: #### ESR, CRP #### [facility] [address] [place] [address] USAV (RBC) [Entitic vol]85.2 qKDjqtjo04-230LralodktjUniversity Hospitals Portage Medical CenterComment on above:Performed By: #### ESR, CRP #### [facility] [address] [place] [address] USAMean Corpuscular HGB Conc31.7 g/dLLow32.0-35.0[facility] CenterComment on above:Performed By: #### ESR, CRP #### [facility] [address] [place] [address] USAMonocytes (Bld) [#/Vol]1.0 10*3/uLHigh0.0-0.8[facility] CenterComment on above:Performed By: #### ESR, CRP #### [facility] [address] [place] [address] USAMonocytes/100 WBC (Bld)4.7 %Normal.[facility] CenterComment on above:Performed By: #### ESR, CRP #### [facility] [address] [place] [address] USANeutrophils (Bld) [#/Vol]18.6 10*3/uLHigh1.8-7.7FSt. Anthony's HospitalComment on above:Performed By: #### ESR, CRP #### [facility] [address] [place] [address] USANeutrophils/100 WBC (Bld)90.4 %Normal.[facility]als Portage Medical CenterComment on above:Performed By: #### ESR, CRP #### [place] [address] USANRBC%0.1 /100{WBC}Normal0-0.5FSt. Anthony's HospitalComment on above:Performed By: #### ESR, CRP #### [place] [address] USAPlatelet mean volume (Bld) [Entitic vol]8.7 fLNormal 6.3-10.7FSt. Anthony's HospitalComment on above:Performed By: #### ESR, CRP #### [place] [address] USAPlatelets (Bld) [#/Vol]282 10*3/nDQrhkjt803-894LpzqnfvmpUniversity Hospitals Portage Medical CenterComment on above:Performed By: #### ESR, CRP #### [place] [address] USARBC (Bld) [#/Vol]4.25 10*6/uLNormal3.60-5.00[facility] Portage Medical CenterComment on above:Performed By: #### ESR, CRP #### [place] [address] USAWBC (Bld) [#/Vol]20.6 10*3/uLHigh3.8-11.6FSt. Anthony's HospitalComment on above:Performed By: #### ESR, CRP #### [place] [address] USAErythrocyte Sedimentation Rateon 52-01-3027MDR (Bld) [Velocity]84 mm/hHigh0-29University [facility] Portage Medical CenterComment on above: Result Comment: PERFORMED BY: [place] [address] PATHOLOGIST [employer]PER[employer] FREDY PRICE M.D.Performed By: #### CRP, ESR #### [place] [address] USALactic Acidon 97-77-4088Aghlbui [Moles/Vol]1.8 mmol/L Normal0.5-2.2FSt. Anthony's HospitalComment on above:Result Comment: PERFORMED BY: [place] [address] PATHOLOGIST [employer] SUPERVISOR FREDY PRICE M.D.Performed By: #### ESR, CRP #### [facility] [address] [place] [address] USAOCC BLD IMMUNO SCREENon 64-23-3243GJRDQY BLOODNegative NormalNEGATIVEThe [facility] CenterComment on above:Performed By: #### SEDR #### [facility] [address] [address] [address] Virgil PurdyPROF 14(COMP METB)on 29-45-1697Hiapyur [Mass/Vol]1.6 g/dL Critically low3.4-5.0The [facility] CenterComment on above:Performed By: #### PT #### [facility] [address] [place] [address] Dr. Virgil PurdyAlbumin/Globulin [Mass ratio]0.4 {ratio}NormalThe [facility] CenterComment on above:Performed By: #### PT #### [facility] [address] [place] [address] Dr. Virgil Garcia [Catalytic activity/Vol]76 U/CJbsmat96-127Xhj [facility] CenterComment on above:Performed By: #### PT #### [facility] [address] [place] [address] Dr. Virgil Spring [Catalytic activity/Vol]14 U/LLmncmi45-76Kzt [facility] CenterComment on above:Performed By: #### PT #### [facility] [address] [place] [address] Dr. Virgil Almanza gap [Moles/Vol]12.6 mmol/LNormalThe [facility] Comment on above:Performed By: #### PT #### [facility] [address] [place] [address] Dr. Virgil Billingsley [Catalytic activity/Vol]20 U/LApsqgl05-81Ign [facility] CenterComment on above:Performed By: #### PT #### [facility] [address] [place] [address] Dr. Virgil PurdyBilirubin [Mass/Vol]0.4 mg/dLNormal0.2-1.0[facility] Comment on above:Performed By: #### PT #### [facility] [address] [address] [address] Virgil PurdyCalcium [Mass/Vol]8.1 mg/dLCritically low8.5-10.1The [facility] CenterComment on above:Performed By: #### PT #### [facility] [address] [address] [address] Virgil PurdyChloride [Moles/Vol]105 mmol/GHagcly72-151Yjf [facility] Comment on above:Performed By: #### PT #### [facility] [address] [address] [address] Virgil PurdyCO2 [Moles/Vol]22.9 mmol/YAtdzxz06.0-32.0[facility] Comment on above:Performed By: #### PT #### [facility] [address] [place] [address] Dr. Virgil PurdyCreatinine [Mass/Vol]1.14 mg/dLCritically high0.55-1.02The [facility] CenterComment on above:Performed By: #### PT #### [facility] [address] [place] [address] Dr. Virgil GarzaGFR-AF FLMEXZPL82 mL/min/1.26z1Vwoqmw>=60The [facility] Comment on above:Performed By: #### PT #### [facility] [address] [address] [address] Virgil GarzaGFR-NON AF YTUNQOZB30 mL/min/1.95j4Hiloyybdwr low>=60[facility] CenterComment on above:Performed By: #### PT #### [facility] [address] [address] [address] Virgil PurdyGlobulin (S) [Mass/Vol]4.1 g/dLNormalThe [facility] CenterComment on above:Performed By: #### PT #### [facility] [address] [place] [address] Dr. Virgil PurdyGlucose [Mass/Vol]112 mg/dLCritically jcvo69-651Rpf [facility] CenterComment on above:Performed By: #### PT #### [facility] [address] [place] [address] Dr. Virgil PurdyPotassium [Moles/Vol]3.5 mmol/LNormal3.5-5.1The [facility] Comment on above:Performed By: #### PT #### [facility] [address] [place] [address] Dr. Virgil PurdyProtein [Mass/Vol]5.7 g/dLCritically low6.4-8.2The [facility] CenterComment on above:Performed By: #### PT #### [facility] [address] [place] [address] Dr. Virgil Alvesdium [Moles/Vol]137 mmol/UBumbdt034-784Wfi [facility] Comment on above:Performed By: #### PT #### [facility] [address] [place] [address] Dr. Virgil PurdyUrea nitrogen [Mass/Vol]26.0 mg/dLCritically high7.0-18.0The [facility] CenterComment on above:Performed By: #### PT #### [facility] [address] [place] [address] Dr. Virgil Langford nitrogen/Creatinine [Mass ratio]22.8 mg/mgNormalThe [facility] CenterComment on above:Performed By: #### PT #### [facility] [address] [place] [address] Dr. Virgil Rubin HEPARIN MONITORon 27-60-6423qMDY Coag (Bld) [Time]40.4 s Bsoino29.5-54.2[facility] CenterComment on above:Performed By: #### SEDR #### [facility] [address] [place] [address] Dr. Virgil Mantilla Coag (Bld) [Time]37.9 sCritically low39.5-54.2The [facility] CenterComment on above:Performed By: #### PT #### [facility] [address] [place] [address] Dr. Virgil PurdySEBelen RATE WESTERGRENon 78-39-8217PRE PXWC147 mm/hrCritically high <=30The [facility] Hospitalment on above:Performed By: #### SEDR #### [facility] [address] [place] [address] Dr. Virgil GlasgowC AUTO DIFFon 87-21-8343ABVG #0.1 103/ulNormal0.0-0.1The [facility] CenterComment on above:Performed By: #### CBC #### [facility] [address] [place] [address] Dr. Virgil PurdyBasophils/100 WBC (Bld)0.3 %Normal0.2-2.0The [facility] Comment on above:Performed By: #### CBC #### [facility] [address] [place] [address] Dr. Herman ChangEO #0.0 103/ulNormal0.0-0.7The [facility] Hospitalment on above: Performed By: #### CBC #### [facility] [address] [place] [address] Dr. Virgil Garzaosinophils/100 WBC (Bld)0.1 %Critically low0.9-7.0The [facility] on above:Performed By: #### CBC #### [facility] [address] [place] [address] Dr. Virgil Garzarythrocyte distribution width (RBC) [Ratio]14.1 %Lkiabk35.0-15.0 [facility] Hospitalment on above:Performed By: #### CBC #### [facility] [address] [place] [address] Dr. Virgil PurdyHematocrit (Bld) [Volume fraction]35.4 %Critically low36.0-48.0 The [facility] Hospitalment on above:Performed By: #### CBC #### [facility] [address] [place] [address] Dr. Virgil PurdyHemoglobin (Bld) [Mass/Vol]11.5 g/dLCritically low12.0-16.0The [facility] HospitalComment on above:Performed By: #### CBC #### [facility] [address] [address] [address] Virgil Dykes #0.14 10e3/ulCritically high0.00-0.03The [facility] Comment on above:Performed By: #### CBC #### [facility] [address] [address] [address] Virgil Dykes %0.7 %Critically high0.0-0.5The [facility] CenterComment on above:Performed By: #### CBC #### [facility] [address] [place] [address] Dr. Virgil Golden #0.6 103/ulCritically low1.2-3.8The [facility] Comment on above:Performed By: #### CBC #### [facility] [address] [place] [address] Dr. Virgil Tabareshocytes/100 WBC (Bld)3.2 %Critically low20.5-60.0[facility] CenterComment on above:Performed By: #### CBC #### [facility] [address] [place] [address] Dr. Virgil Womack DIFF REQNONormalThe [facility] CenterComment on above: Performed By: #### CBC #### [facility] [address] [place] [address] Dr. Virgil Samuel (RBC) [Entitic mass]28.3 blAygmnt43.7-34.0The [facility] CenterComment on above:Performed By: #### CBC #### [facility] [address] [place] [address] Dr. Virgil Samuel (RBC) [Mass/Vol]32.5 g/eLIaxpdh01.9-35.2The [facility] CenterComment on above:Performed By: #### CBC #### [facility] [address] [place] [address] Dr. Virgil Samuel (RBC) [Entitic vol]87.2 xLLbblpl10.0-99.0The [facility] CenterComment on above:Performed By: #### CBC #### [facility] [address] [address] [address] Virgil Patterson #1.2 103/ulCritically high0.3-0.8The [facility] Comment on above:Performed By: #### CBC #### [facility] [address] [place] [address] Dr. Virgil Pickensocytes/100 WBC (Bld)6.3 %Normal1.7-12.0[facility] Comment on above:Performed By: #### CBC #### [facility] [address] [place] [address] Dr. Virgil Martin #17.5 103/ulCritically high1.4-6.5ThPremier Health [facility] Comment on above:Performed By: #### CBC #### [facility] [address] [place] [address] Dr. Virgil Hernandezutrophils/100 WBC (Bld)89.4 %Critically high43.0-75.0The [facility] CenterComment on above:Performed By: #### CBC #### [facility] [address] [place] [address] Dr. Virgil Olmedo mean volume (Bld) [Entitic vol]11.5 fLNormal9.5-13.5ThPremier Health Miami Valley Hospital SouthComment on above:Performed By: #### CBC #### [facility] [address] [place] [address] Dr. Virgil PurdyPLT224 103/kbGygbuy460-898Frp [facility] CenterComment on above: Performed By: #### CBC #### [facility] [address] [place] [address] Dr. Virgil PurdyRBC4.06 106/ulCritically low4.20-5.40The [facility] CenterComment on above:Performed By: #### CBC #### [facility] [address] [place] [address] Dr. Virgil PurdyWBC19.6 103/ulCritically high4.0-11.0The [facility] CenterComment on above:Performed By: #### CBC #### [facility] [address] [address] [address] Virgil Francois W MANUAL DIFFon 76-26-9144CGQSTFLM LYMPH #NormalThe [facility] HospitalComment on above:Performed By: #### AMBER #### [facility] [address] [address] [address] Virgil PurdyATYPICAL LYMPH %NormalThe [facility] HospitalComment on above: Performed By: #### AMBER #### [facility] [address] [place] [address] Dr. Virgil Lopez #Normal0.0-0.3The [facility] CenterComment on above: Performed By: #### AMBER #### [facility] [address] [place] [address] Dr. Virgil Lopez %Normal0-5The [facility] CenterComment on above:Performed By: #### AMBER #### [facility] [address] [place] [address] Dr. Virgil Haque #0.00 103/ulNormal0.00-0.10The [facility] CenterComment on above:Performed By: #### AMBER #### [facility] [address] [place] [address] Dr. Virgil Hauqe %0.0 %Critically low0.2-2.0The [facility] CenterComment on above:Performed By: #### AMBER #### [facility] [address] [place] [address] Dr. Virgil Wiseman #NormalPromedica [facility] Hospital HospitalComment on above:Performed By: #### AMBER #### [facility] [address] [place] [address] Dr. Virgil Wiseman %NormalAdena Regional Medical CenterComment on above:Performed By: #### AMBER #### [facility] [address] [place] [address] Dr. Virgil PurdyCORRECTED WBCNormal4.0-11.0The [facility] HospitalComment on above: Performed By: #### CBCDARIUS #### [facility] [address] [address] [address] Virgil Arteaga #0.00 103/ulNormal0.00-0.70The [facility] CenterComment on above:Performed By: #### AMBER #### [facility] [address] [address] [address] Virgil Arteaga%0.0 %Critically low0.9-7.0The [facility] CenterComment on above:Performed By: #### CBCDARIUS #### [facility] [address] [address] [address] Virgil PurdyHCT33.7 %Critically low36.0-48.0The [facility] CenterComment on above:Performed By: #### AMBER #### [facility] [address] [place] [address] Dr. Virgil PurdyHGB11.0 g/dlCritically low12.0-16.0The [facility] CenterComment on above:Performed By: #### AMBER #### [facility] [address] [place] [address] Dr. Virgil Walker #1.10 103/ulCritically low1.20-3.80The [facility] on above:Performed By: #### AMBER #### [facility] [address] [place] [address] Dr. Virgil Walker%6.0 %Critically low20.5-60.0The [facility] Hospitalment on above:Performed By: #### CBCDARIUS #### [facility] [address] [place] [address] Dr. Virgil PurdyMCH27.8 agEbzfaw43.7-34.0The [facility] CenterComment on above: Performed By: #### CBCDARIUS #### [facility] [address] [address] [address] Virgil SamuelHC32.6 g/xqQkmzmc16.9-35.2The [facility] CenterComment on above:Performed By: #### CBCDARIUS #### [facility] [address] [address] [address] Virgil SamuelV85.1 rAJzhaaw86.0-99.0The [facility] CenterComment on above: Performed By: #### AMBER #### [facility] [address] [address] [address] Virgil RudolphOCYTE #NormalPromedica [facility] Hospital HospitalComment on above: Performed By: #### AMBER #### [facility] [address] [address] [address] Virgil RudolphOCYTE %NormalAdena Regional Medical CenterComment on above: Performed By: #### AMBER #### [facility] [address] [place] [address] Dr. Virgil Figueroa#0.73 103/ulNormal0.30-0.80The [facility] CenterComment on above:Performed By: #### AMBER #### [facility] [address] [place] [address] Dr. Virgil Figueroa%4.0 %Normal1.7-12.0The [facility] CenterComment on above: Performed By: #### AMBER #### [facility] [address] [place] [address] Dr. Virgil LindoV11.1 fLNormal9.5-13.5The [facility] CenterComment on above: Performed By: #### AMBER #### [facility] [address] [place] [address] Dr. Virgil Parish #NormalAdena Regional Medical CenterComment on above:Performed By: #### AMBER #### [facility] [address] [place] [address] Dr. Virgil AdenOCYTE %NormalAdena Regional Medical CenterComment on above:Performed By: #### AMBER #### [facility] [address] [place] [address] Dr. Virgil BenavidesNormalThe [facility] CenterComment on above:Performed By: #### AMBER #### [facility] [address] [place] [address] Dr. Virgil BrownT230 103/lfRwaprp871-303Hec [facility] CenterComment on above: Performed By: #### AMBER #### [facility] [address] [place] [address] Dr. Virgil PurdyRBC3.96 106/ulCritically low4.20-5.40The [facility] CenterComment on above:Performed By: #### AMBER #### [facility] [address] [place] [address] Dr. Virgil PurdyRDW14.0 %Onhrhz56.0-15.0The [facility] CenterComment on above: Performed By: #### AMBER #### [facility] [address] [place] [address] Dr. Virgil Albert #16.47 103/ulCritically high1.40-6.50[facility] Comment on above:Performed By: #### AMBER #### [facility] [address] [place] [address] Dr. Virgil Albert %90.0 %Critically high43.0-75.0The [facility] CenterComment on above:Result Comment: vacuoles seenPerformed By: #### AMBER #### [facility] [address] [place] [address] Dr. Virgil SandovalBC18.3 103/ulCritically high4.0-11.0The [facility] CenterComment on above:Performed By: #### AMBER #### [facility] [address] [place] [address] Dr. Virgil Chinchilla 64-87-1303ZFZ [Mass/Vol]mg/LCritically high<=1.0The [facility] CenterComment on above:Performed By: #### SEDR #### [facility] [address] [place] [address] Dr. Virgil Mo BLOODon 41-34-8121Ghdvmnzzama examination of blood, cultureCulture Observations: NO GROWTH AT 5 DAYS.NormalThe [facility] CenterComment on above:Performed By: #### LACT #### [facility] [address] [place], [place] [address] Dr. Herman ChangMicroscopic examination of blood, cultureCulture Observations: NO GROWTH AT 5 DAYS.NormalThe [facility] CenterComment on above:Performed By: #### LACT #### [facility] [address] [place], [place] [address] Dr. Herman ChangECHOCARDIO M/2D COMPLETEon [id number] M/2D COMPLETE Patient Name Site Name LAURA TYLER [facility] Account No Medical Record Number Age Sex Date Time [id number] F 03/25/2023 11:25 At the Request [...] by: Josesito Manuel M.D. on 03/25/2023 at 18:19[facility] 14(COMP METB)on 26-92-2420Hpukuwl [Mass/Vol]1.9 g/dLCritically low 3.4-5.0The [facility] CenterComment on above:Performed By: #### SEDR #### [facility] [address] [place] [address] Dr. Virgli PurdyAlbumin/Globulin [Mass ratio]0.4 {ratio}NormalThe [facility] CenterComment on above:Performed By: #### SEDR #### [facility] [address] [address] [address] Virgil Garcia [Catalytic activity/Vol]77 U/ZZjfutn79-824Rqk [facility] CenterComment on above:Performed By: #### SEDR #### [facility] [address] [place] [address] Dr. Virgil Spring [Catalytic activity/Vol]14 U/QEoqalx70-09Lmi [facility] CenterComment on above:Performed By: #### SEDR #### [facility] [address] [place] [address] Dr. Virgil Almanza gap [Moles/Vol]13.0 mmol/LNormalThe [facility] Comment on above:Performed By: #### SEDR #### [facility] [address] [place] [address] Dr. Virgil PurdyAST [Catalytic activity/Vol]11 U/LCritically tih68-93Jmx [facility] CenterComment on above:Performed By: #### SEDR #### [facility] [address] [place] [address] Dr. Virgil PurdyBilirubin [Mass/Vol]0.5 mg/dLNormal0.2-1.0The [facility] Comment on above:Performed By: #### SEDR #### [facility] [address] [place] [address] Dr. Virgil PurdyCalcium [Mass/Vol]8.7 mg/dLNormal8.5-10.1The [facility] Comment on above:Performed By: #### SEDR #### [facility] [address] [place] [address] Dr. Virgil PurdyChloride [Moles/Vol]100 mmol/PImapfj11-567Eit [facility] Comment on above:Performed By: #### SEDR #### [facility] [address] [address] [address] Virgil PurdyCO2 [Moles/Vol]24.3 mmol/EXiwtgo05.0-32.0The [facility] Comment on above:Performed By: #### SEDR #### [facility] [address] [address] [address] Virgil PurdyCreatinine [Mass/Vol]1.18 mg/dLCritically high0.55-1.02The [facility] CenterComment on above:Performed By: #### SEDR #### [facility] [address] [place] [address] Dr. Virgil GarzaGFR-AF KHIKZSAD63 mL/min/1.34h8Hpeoqjdwmv low>=60The [facility] CenterComment on above:Performed By: #### SEDR #### [facility] [address] [place] [address] Dr. Virgil GarzaGFR-NON AF MGDYYMXG69 mL/min/1.49m0Rkxzqjqsmz low>=60The [facility] CenterComment on above:Performed By: #### SEDR #### [facility] [address] [place] [address] Dr. Virgil PurdyGlobulin (S) [Mass/Vol]4.3 g/dLNormalThe [facility] CenterComment on above:Performed By: #### SEDR #### [facility] [address] [place] [address] Dr. Virgil PurdyGlucose [Mass/Vol]92 mg/hOEkjgpx42-786Eme [facility] Comment on above:Performed By: #### SEDR #### [facility] [address] [place] [address] Dr. Virgil PurdyPotassium [Moles/Vol]3.3 mmol/LCritically low3.5-5.1The [facility] CenterComment on above:Performed By: #### SEDR #### [facility] [address] [place] [address] Dr. Virgil PurdyProtein [Mass/Vol]6.2 g/dLCritically low6.4-8.2The [facility] CenterComment on above:Performed By: #### SEDR #### [facility] [address] [place] [address] Dr. Virgil PurdySodium [Moles/Vol]134 mmol/LCritically uaf424-870Kan [facility] CenterComment on above:Performed By: #### SEDR #### [facility] [address] [place] [address] Dr. Virgil Langford nitrogen [Mass/Vol]25.0 mg/dLCritically high7.0-18.0The [facility] CenterComment on above:Performed By: #### SEDR #### [facility] [address] [place] [address] Dr. Virgil Langford nitrogen/Creatinine [Mass ratio]21.2 mg/mgNormalThe [facility] CenterComment on above:Performed By: #### SEDR #### [facility] [address] [place] [address] Dr. Virgil PurdyPROTIMEon 74-34-0518SOT Coag (PPP) [Relative time]0.96 {INR} NormalThe [facility] CenterComselect specialty hospital-pontiac on above:Performed By: #### PT #### [facility] [address] [place] [address] Dr. Virgil Linder GUIDELINESSEE BELOWFulton County Health CenterComment on above:Result Comment: DESIRED INR: 2.0 - 3.0 CONDITIONS NOT LISTED BELOW 2.5 - 3.5 FOR PROSTHETIC HEART VALVE REPLACEMENT 2.5 - 3.5 RECURRENT THROMBOSIS Performed By: #### PT #### [facility] [address] [place] [address] Dr. Virgil PurdyPT Coag (PPP) [Time]10.2 sNormal9.0-11.6The [facility] Comment on above:Performed By: #### PT #### [facility] [address] [place] [address] Dr. Virgil Rubin HEPARIN MONITORon [id number] Coag (Bld) [Time]38.5 s Critically low39.5-54.2The [facility] CenterComment on above:Performed By: #### PT #### [facility] [address] [place] [address] Dr. Virgil Moise (d) [Time]41.3 cRnvkea73.5-54.2[facility] Comment on above:Performed By: #### LACT #### [facility] [address] [place] [address] Dr. Virgil Moise (Bld) [Time]41.0 zDwgsmo52.5-54.2[facility] Comment on above:Performed By: #### PTTHEP #### [facility] [address] [place] [address] Dr. Virgil Baxter RATE WESTERGRENon [id number] RATE82 mm/hrCritically high <=30The [facility] CenterComment on above:Performed By: #### SEDR #### [facility] [address] [place] [address] Dr. Virgil Davison EXT NON VASC LIMITED LTon [id number] EXT NON VASC LIMITED LT EXAMINATION: US [...] Electronically authenticated by: AC LOVING Date: 2023-03-25 10:20[facility] [place] W MANUAL DIFFon [id number] LYMPH #NormalThe [facility] CenterComment on above:Performed By: #### SEDR #### [facility] [address] [place] [address] Dr. Virgil StilesYPICAL LYMPH %NormalThe [facility] CenterComment on above: Performed By: #### SEDR #### [facility] [address] [place] [address] Dr. Virgil Lopez #1.6 103/ulCritically high0.0-0.3The [facility] Comment on above:Performed By: #### SEDR #### [facility] [address] [place] [address] Dr. Virgil Lopez %8 %Critically high0-5The [facility]ipomo HospitalComment on above: Performed By: #### SEDR #### [facility] [address] [place] [address] Dr. Virgil Haque #0.00 103/ulNormal0.00-0.10The [facility] HospitalComment on above:Performed By: #### SEDR #### [facility] [address] [place] [address] Dr. Virgil Haque %0.0 %Critically low0.2-2.0The [facility] CenterComment on above:Performed By: #### SEDR #### [facility] [address] [place] [address] Dr. Virgil Wiseman #NormalThe [facility]ip[facility] HospitalComment on above:Performed By: #### SEDR #### [facility] [address] [place] [address] Dr. Virgil Wiseman %NormalAdena Regional Medical CenterComment on above:Performed By: #### SEDR #### [facility] [address] [place] [address] Dr. Virgil PurdyCORRECTED WBCNormal4.0-11.0The [facility] CenterComment on above: Performed By: #### SEDR #### [facility] [address] [place] [address] Dr. Virgil Arteaga #0.19 103/ulNormal0.00-0.70The [facility] HospitalComment on above:Performed By: #### SEDR #### [facility] [address] [place] [address] Dr. Virgil Arteaga%1.0 %Normal0.9-7.0The [facility] CenterComment on above: Performed By: #### SEDR #### [facility] [address] [place] [address] Dr. Virgil DorantesT43.4 %Bexxec50.0-48.0The [facility] CenterComment on above: Performed By: #### SEDR #### [facility] [address] [place] [address] Dr. Virgil PurdyHGB14.5 g/kxJtyexx17.0-16.0The [facility] CenterComment on above: Performed By: #### SEDR #### [facility] [address] [place] [address] Dr. Virgil Walker #1.36 103/ulNormal1.20-3.80The [facility] CenterComment on above:Performed By: #### SEDR #### [facility] [address] [place] [address] Dr. Virgil Walker%7.0 %Critically low20.5-60.0The [facility] CenterComment on above:Performed By: #### SEDR #### [facility] [address] [place] [address] Dr. Virgil SamuelH28.0 txMwcdrc90.7-34.0The [facility] CenterComment on above: Performed By: #### SEDR #### [facility] [address] [place] [address] Dr. Virgil SamuelHC33.4 g/noNbmbbj14.9-35.2The [facility] CenterComselect [facility] on above:Performed By: #### SEDR #### [facility] [address] [place] [address] Dr. Virgil SamuelV83.9 mDQlidlv59.0-99.0The [facility] CenterComment on above: Performed By: #### SEDR #### [facility] [address] [place] [address] Dr. Virgil RudolphOCYTE #NormalThe [facility] CenterComselect specialty hospital-[facility] on above: Performed By: #### SEDR #### [facility] [address] [place] [address] Dr. Virgil RudolphOCYTE %NormalAdena Regional Medical CenterComment on above: Performed By: #### SEDR #### [facility] [address] [address] [address] Virgil Figueroa#0.58 103/ulNormal0.30-0.80The [facility] CenterComment on above:Performed By: #### SEDR #### [facility] [address] [address] [address] Virgil Figueroa%3.0 %Normal1.7-12.0The [facility] HospitalComment on above: Performed By: #### SEDR #### [facility] [address] [place] [address] Dr. Virgil LindoV11.1 fLNormal9.5-13.5The [facility] CenterComment on above: Performed By: #### SEDR #### [facility] [address] [place] [address] Dr. Virgil AdenOCYTE #NormalThe [facility] CenterComment on above:Performed By: #### SEDR #### [facility] [address] [place] [address] Dr. Virgil AdenOCYTE %NormalThe [facility] CenterComselect specialty hospital-[facility] on above:Performed By: #### SEDR #### [facility] [address] [place] [address] Dr. Virgil PurdyNRBCNormalThe [facility] CenterComment on above:Performed By: #### SEDR #### [facility] [address] [place] [address] Dr. Virgil PurdyPLT238 103/enQuecar164-193Pya [facility] CenterComment on above: Performed By: #### SEDR #### [facility] [address] [place] [address] Dr. Virgil PurdyRBC5.17 106/ulNormal4.20-5.40The [facility] CenterComment on above:Performed By: #### SEDR #### [facility] [address] [place] [address] Dr. Vigril PurdyRDW13.7 %Yeolkb62.0-15.0The [facility] CenterComment on above: Performed By: #### SEDR #### [facility] [address] [place] [address] Dr. Virgil Albert #15.71 103/ulCritically high1.40-6.50The [facility] Comment on above:Performed By: #### SEDR #### [facility] [address] [place] [address] Dr. Virgil Albert %81.0 %Critically high43.0-75.0The [facility] CenterComment on above:Performed By: #### SEDR #### [facility] [address] [place] [address] Dr. Virgil SandovalBC19.4 103/ulCritically high4.0-11.0The [facility] CenterComment on above:Performed By: #### SEDR #### [facility] [address] [place] [address] Dr. Virgil Chinchilla 72-35-9480TCK96.6 mg/dLCritically high<=1.0The [facility] CenterComment on above:Performed By: #### BMP, URIC, CRP #### [facility] [address] [place] [address] Dr. Virgil Mo BLOODon 70-23-0746Vysuoqircrk examination of blood, cultureCulture Observations: NO GROWTH AT 5 DAYS.NormalThe [facility] CenterComment on above:Performed By: #### LACT #### [facility] [address] [place] [address] Dr. Virgil PurdyMicroscopic examination of blood, cultureCulture Observations: NO GROWTH AT 5 DAYS.NormalThe [facility]ip[facility] HospitalComment on above:Performed By: #### LACT #### [facility] [address] [place] [address] Dr. Virgil PurdyLACTATE/LACTIC ACIDon 70-18-3838Npjmdtf [Moles/Vol]1.4 mmol/L Normal0.4-2.0The [facility] CenterComment on above:Performed By: #### LACT #### [facility] [address] [address] [address] Virgil AlbraranI ARM LT WO CONon [id number] ARM LT WO CONEXAM: MRI ARM LT WO CON HISTORY: The [...] Electronically authenticated by: LEE RODRÍGUEZ Date: 2023-03-24 17:45[facility] CenterPROF CHEM 8 (BAS METB)on 61-95-2937Zljgk gap [Moles/Vol]16.0 mmol/LNormalThe [facility] CenterComment on above:Performed By: #### BMP, URIC, CRP #### [facility] [address] [address] [address] Virgil PurdyCalcium [Mass/Vol]10.4 mg/dLCritically high8.5-10.1The [facility] CenterComment on above:Performed By: #### BMP, URIC, CRP #### [facility] [address] [address] [address] Virgil PurdyChloride [Moles/Vol]97 mmol/LCritically duu25-603Tse Chayo HospitalComment on above:Performed By: #### BMP, URIC, CRP #### [facility] [address] [place] [address] Dr. Virgil PurdyCO2 [Moles/Vol]26.7 mmol/TSpivky89.0-32.0The [facility] Comment on above:Performed By: #### BMP, URIC, CRP #### [facility] [address] [place] [address] Dr. Virgil PurdyCreatinine [Mass/Vol]1.36 mg/dLCritically high0.55-1.02The [facility] CenterComment on above:Performed By: #### BMP, URIC, CRP #### [facility] [address] [place] [address] Dr. Virgil GarzaGFR-AF KSREQFBN09 mL/min/1.77e1Jcbekiumbs low>=60The [facility] CenterComment on above:Performed By: #### BMP, URIC, CRP #### [facility] [address] [place] [address] Dr. Virgil Parnell-NON AF TWQCSLBP75 mL/min/1.67h2Xjgtqdtlte low>=60The [facility] CenterComment on above:Performed By: #### BMP, URIC, CRP #### [facility] [address] [place] [address] Dr. Virgil PurdyGlucose [Mass/Vol]97 mg/lAGbques91-439FvdAdena Regional Medical Center Comment on above:Performed By: #### BMP, URIC, CRP #### [facility] [address] [place] [address] Dr. Virgil PurdyPotassium [Moles/Vol]3.7 mmol/LNormal3.5-5.1[facility] Comment on above:Performed By: #### BMP, URIC, CRP #### [facility] [address] [place] [address] Dr. Virgil PurdySodium [Moles/Vol]136 mmol/KOmmcfh516-804PwaAdena Regional Medical Center Comment on above:Performed By: #### BMP, URIC, CRP #### [facility] [address] [place] [address] Dr. Virgil Langford nitrogen [Mass/Vol]28.0 mg/dLCritically high7.0-18.0The [facility] CenterComment on above:Performed By: #### BMP, URIC, CRP #### [facility] [address] [place] [address] Dr. Virgil Langford nitrogen/Creatinine [Mass ratio]20.6 mg/mgNormalThe [facility] CenterComment on above:Performed By: #### BMP, URIC, CRP #### [facility] [address] [place] [address] Dr. Virgil PurdyPTT HEPARIN MONITORon 88-39-9930sQIK Coag (Bld) [Time]36.0 s Critically low39.5-54.2The [facility] CenterComselect [facility] on above:Performed By: #### PT #### [facility] [address] [place] [address] Dr. Virgil PurdySED RATE WESTERGRENon 73-49-7879TAK RATE78 mm/hrCritically high <=30The [facility] CenterComselect [facility] hospital-[facility] on above:Performed By: #### SEDR #### [facility] [address] [place] [address] Dr. Virgil PurdyURIC ACID SERUMon 56-23-3312Obsxt [Mass/Vol]4.3 mg/dLNormal 2.6-6.0The [facility] CenterComselect [facility] on above:Performed By: #### BMP, URIC, CRP #### [facility] [address] [place] [address] Dr. Virgil PurdyXR ANKLE HILLARY MIN 3 VIEWSon 31-41-2811FF ANKLE HILLARY MIN 3 VIEWS EXAMINATION: XR [...] Electronically authenticated by: AC LOVING Date: 2022-08-22 10:41No[facility] AUTO DIFFon [id number] #0.1 103/ulNormal0.0-0.1The [facility] CenterComment on above:Performed By: #### PT #### [facility] [address] [place] [address] Dr. Virgil PurdyBasophils/100 WBC (Bld)1.1 %Normal0.2-2.0[facility] Comment on above:Performed By: #### PT #### [facility] [address] [place] [address] Dr. Virgil Sage #0.3 103/ulNormal0.0-0.7The [facility] CenterComment on above: Performed By: #### PT #### [facility] [address] [place] [address] Dr. Virgil Garzaosinophils/100 WBC (Bld)5.2 %Normal0.9-7.0The [facility] Comment on above:Performed By: #### PT #### [facility] [address] [place] [address] Dr. Virgil Garzarythrocyte distribution width (RBC) [Ratio]13.3 %Nrtdae38.0-15.0 The [facility] CenterComment on above:Performed By: #### PT #### [facility] [address] [place] [address] Dr. Virgil PurdyHematocrit (Bld) [Volume fraction]44.0 %Pvjiln70.0-48.0The [facility] CenterComment on above:Performed By: #### PT #### [facility] [address] [place] [address] Dr. Virgil PurdyHemoglobin (Bld) [Mass/Vol]13.7 g/nATwmdpf68.0-16.0The [facility] CenterComment on above:Performed By: #### PT #### [facility] [address] [place] [address] Dr. Virgil Dykes #0.01 10e3/ulNormal0.00-0.03The [facility] CenterComment on above:Performed By: #### PT #### [facility] [address] [place] [address] Dr. Virgil Dykes %0.2 %Normal0.0-0.5The [facility] CenterComment on above: Performed By: #### PT #### [facility] [address] [place] [address] Dr. Virgil FishJuan J #1.5 103/ulNormal1.2-3.8The [facility] CenterComment on above:Performed By: #### PT #### [facility] [address] [place] [address] Dr. Virgil Tabareshocytes/100 WBC (Bld)26.8 %Gobuaz82.5-60.0The [facility] CenterComment on above:Performed By: #### PT #### [facility] [address] [place] [address] Dr. Virgil RomanUAL DIFF REQNONormalThe [facility] CenterComment on above: Performed By: #### PT #### [facility] [address] [place] [address] Dr. Virgil Samuel (RBC) [Entitic mass]28.2 txGxrufd80.7-34.0The [facility] CenterComment on above:Performed By: #### PT #### [facility] [address] [place] [address] Dr. Virgil Samuel (RBC) [Mass/Vol]31.1 g/mCGlbpgd56.9-35.2The [facility] CenterComment on above:Performed By: #### PT #### [facility] [address] [place] [address] Dr. Virgil Samuel (RBC) [Entitic vol]90.7 kCNzzcew71.0-99.0The [facility] CenterComment on above:Performed By: #### PT #### [facility] [address] [place] [address] Dr. Virgil Patterson #0.5 103/ulNormal0.3-0.8The [facility] CenterComment on above:Performed By: #### PT #### [facility] [address] [place] [address] Dr. Virgil Pickensocytes/100 WBC (Bld)8.4 %Normal1.7-12.0The [facility] Comment on above:Performed By: #### PT #### [facility] [address] [place] [address] Dr. Virgil Martin #3.3 103/ulNormal1.4-6.5The [facility] CenterComment on above:Performed By: #### PT #### [facility] [address] [place] [address] Dr. Virgil Hernandezutrophils/100 WBC (Bld)58.3 %Rytmdy67.0-75.0The [facility] CenterComment on above:Performed By: #### PT #### [facility] [address] [place] [address] Dr. Virgil Garcialet mean volume (Bld) [Entitic vol]11.4 fLNormal9.5-13.5The [facility] CenterComment on above:Performed By: #### PT #### [facility] [address] [place] [address] Dr. Virgil PurdyPLT263 103/wcQnfajx448-518Exc [facility] CenterComment on above: Performed By: #### PT #### [facility] [address] [place] [address] Dr. Virgil PurdyRBC4.85 106/ulNormal4.20-5.40The [facility] CenterComment on above:Performed By: #### PT #### [facility] [address] [place] [address] Dr. Virgil PurdyWBC5.6 103/ulNormal4.0-11.0The [facility] CenterComment on above: Performed By: #### PT #### [facility] [address] [place] [address] Dr. Virgil PurdyGLYCOHEMOGLOBIN A1Con 30-75-3196IJK RECOMMENDATIONSEE [facility] HospitalComselect [facility] hospital-[facility] on above:Result Comment: ADA RECOMMENDED LIMIT 4.0 - 6.0 ADA THERAPEUTIC TARGET < 7.0 ACTION SUGGESTED > 7.0Performed By: #### A1C #### [facility] [address] [place] [address] Dr. Virgil PurdyGlucose [Mass/Vol]123 mg/dLNoKettering Health Main CampusComselect specialty hospital-[place] on above:Performed By: #### A1C #### [facility] [address] [place] [address] Dr. Virgil PurdyHbA1c (Bld) [Mass fraction]5.9 %Normal4.5-6.2[facility] on above:Performed By: #### A1C #### [facility] [address] [place] [address] Dr. Virgil PurdyLIPID PROFILEon 67-22-5516FOGW-HDL RATIO NORMSEE [facility] HospitalComselect [facility] on above:Result Comment: 3.3 - 4.4 LOW RISK 4.4 - 7.1 AVERAGE RISK 7.1 - 11.0 MODERATE RISK >11.0 HIGH RISKPerformed By: #### PT #### [facility] [address] [place] [address] Dr. Virgil PurdyCholesterol [Mass/Vol]240 mg/dLCritically high<=200The [facility] on above:Performed By: #### PT #### [facility] [address] [place] [address] Dr. Virgil PurdyCholesterol in HDL [Mass/Vol]70 mg/dLCritically pdzb04-20Urt [facility] on above:Performed By: #### PT #### [facility] [address] [place] [address] Dr. Virgil PurdyCholesterol in LDL [Mass/Vol]150.2 mg/dLCleveland Clinic [facility] on above:Performed By: #### PT #### [facility] [address] [place] [address] Dr. Virgil PurdyCholesterol.total/Cholesterol in HDL [Mass ratio]3.4 {ratio} NormalThe [facility] CenterComment on above:Performed By: #### PT #### [facility] [address] [place] [address] Dr. Virgil Vasquez NORMAL> or = 60 mg/dl - LOW CARDIOVASCULAR RISK <40 mg/dl - HIGH CARDIOVASCULAR RISKFulton County Health CenterComment on above:Performed By: #### PT #### [facility] [address] [place] [address] Dr. Virgil PurdyLDL CALC NORMALSEE BELOWFulton County Health CenterComment on above:Result Comment: <100 mg/dl OPTIMAL 100 - 129 mg/dl NEAR OR ABOVE OPTIMAL 130 - 159 mg/dl BORDERLINE HIGH 160 - 189 mg/dl HIGH >190 mg/dl VERY HIGH Performed By: #### PT #### [facility] [address] [place] [address] Dr. Virgil PurdyTriglyceride [Mass/Vol]99 mg/dLNormal<=150The [facility] Comment on above:Performed By: #### PT #### [facility] [address] [place] [address] Dr. Virgil GuerraLDL CALC19.8 mg/dLNormMorrow County HospitalComment on above: Performed By: #### PT #### [facility] [address] [place] [address] Dr. Virgil Shrestha PROFILEon 89-42-0552Lhocwuw [Mass/Vol]3.8 g/dLNormal3.4-5.0 The [facility] CenterComment on above:Performed By: #### PT #### [facility] [address] [place] [address] Dr. Virgil PurdyAlbumin/Globulin [Mass ratio]1.1 {ratio}NormalThe [facility] CenterComment on above:Performed By: #### PT #### [facility] [address] [place] [address] Dr. Virgil MaddoxP [Catalytic activity/Vol]86 U/KJrabcd48-526Suo Nipomo HospitalComment on above:Performed By: #### PT #### [facility] [address] [address] [address] Virgil Spring [Catalytic activity/Vol]21 U/XBtlhup55-11Ymk [facility] Hospitalment on above:Performed By: #### PT #### [facility] [address] [address] [address] Virgil Billingsley [Catalytic activity/Vol]20 U/WArmhhu07-34Lzu [facility] CenterComment on above:Performed By: #### PT #### [facility] [address] [address] [address] Virgil LizarragaI, CONJUGATED0.1 mg/dLNormal0.0-0.2[facility] Comment on above:Performed By: #### PT #### [facility] [address] [address] [address] Virgil Lizarragairubin [Mass/Vol]0.2 mg/dLNormal0.2-1.0[facility] Comment on above:Performed By: #### PT #### [facility] [address] [address] [address] Virgil PurdyGlobulin (S) [Mass/Vol]3.5 g/dLNormalThe [facility] CenterComselect specialty hospital-[facility] on above:Performed By: #### PT #### [facility] [address] [address] [address] Virgil PurdyProtein [Mass/Vol]7.3 g/dLNormal6.4-8.2[facility] Comment on above:Performed By: #### PT #### [facility] [address] [address] [address] Virgil PurdyPROF CHEM 8 (BAS METB)on 30-88-8018Yizqs gap [Moles/Vol]11.9 mmol/LNormalHarrison Community Hospitalment on above:Performed By: #### PT #### [facility] [address] [address] [address] Virgil PurdyCalcium [Mass/Vol]9.0 mg/dLNormal8.5-10.1The [facility] Comment on above:Performed By: #### PT #### [facility] [address] [place] [address] Dr. Virgil PurdyChloride [Moles/Vol]105 mmol/NJtnbuj43-045EzvAdena Regional Medical Center Comment on above:Performed By: #### PT #### [facility] [address] [address] [address] Virgil PurdyCO2 [Moles/Vol]25.3 mmol/ATelmgs08.0-32.0The [facility] Comment on above:Performed By: #### PT #### [facility] [address] [place] [address] Dr. Virgil PurdyCreatinine [Mass/Vol]0.90 mg/dLNormal0.55-1.02The [facility] CenterComment on above:Performed By: #### PT #### [facility] [address] [place] [address] Dr. Virgil GarzaGFR-AF SAMOAN>60Normal>=60The [facility] CenterComment on above:Performed By: #### PT #### [facility] [address] [place] [address] Dr. Virgil GarzaGFR-NON AF SAMOAN>60Normal>=60The [facility] CenterComment on above:Performed By: #### PT #### [facility] [address] [place] [address] Dr. Virgil PurdyGlucose [Mass/Vol]93 mg/sTCfvppy49-698Esa [facility] Comment on above:Performed By: #### PT #### [facility] [address] [address] [address] Virgil PurdyPotassium [Moles/Vol]5.2 mmol/LCritically high3.5-5.1The [facility] CenterComment on above:Performed By: #### PT #### [facility] [address] [place] [address] Dr. Virgil PurdySodium [Moles/Vol]137 mmol/VThidkl060-236Jdv [facility] Comment on above:Performed By: #### PT #### [facility] [address] [place], [place] [address] Dr. Virgil Langford nitrogen [Mass/Vol]16.0 mg/dLNormal7.0-18.0The [facility] CenterComment on above:Performed By: #### PT #### [facility] [address] [address] [address] Virgil Langford nitrogen/Creatinine [Mass ratio]17.8 mg/mgNormalThe [facility] CenterComment on above:Performed By: #### PT #### [facility] [address] [place] [address] Dr. Virgil Sinclair 26-35-4781DZR80.874 uIU/mLCritically high0.358-3.740The [facility] CenterComment on above:Performed By: #### PT #### [facility] [address] [address] [address] Virgil Rebolledo Quick Testingon 75-39-1207RorvzmZynfylpbZsgpa [employer] Other Vital Signs Date TimeVital SignValuePerforming NdzcgcbnyCpzmynob16-71-0366 10:38-0500Body quzkwb738.5 cmAnthony Rusher DPM Work Phone: [facility]linPsdogvavwd53-56-0315 10:38-0500Body mass index (BMI) [Ratio]29.26 kg/t1Tzginte Rusher DPM Work Phone: [phone]linEgklrfkbih22-33-8303 10:38-0500Body .58 kgAnthony Rusher DPM Work Phone: [phone]linEezbvguoxi40-19-6511 09:30-0400Body .48 cmJustheriberto Concepcion Other [place] [employer] Other 05-26-2023 09:30-0400Body mass index (BMI) [Ratio] 28.16 kg/q1Zikipn [place] Other 256.806.6994noLycera Other 05-26-2023 09:30-0400Body .85 kgJufelicitas Concepcion Other [employer] Other 11-15-2021 15:15-0500Body iabrwl063.48 cmAmber Ginty Other [employer] Other 11-15-2021 15:15-0500Body mass index (BMI) [Ratio] 29.63 kg/j9Rsrfl Ginty Other [employer] Other 11-15-2021 15:15-0500Body kiqertgneer35.2 [degF]Harper Ginty Other [employer] Other 11-15-2021 15:15-0500Body wcfemk08.48 kgAmber Ginty Other [employer] Other 11-15-2021 15:15-6710HbN1% (BldA) [Mass fraction]97 % Harper Ginty Other [employer] Other Encounters Encounter DateEncounter TypeCare ProviderFacilityStart: 09-13-2025 End: 94-68-6969sjwpfokymuTvthuof R NILLFacility: BellevueStart: 09-13-2025 End: 74-29-8389Jdiefsb encounter procedureMichael R NILL [phone]-IacqoProvidence Hospital [facility] [place] Start: 17-25-5627gjehvmuvapAoxjcsh NILLFacility: AnupamaevueStart: 05-29-2025 End: 97-90-3407Kmxruqiwd department patient visitNO PCP NO PCPProMedica [facility] Centertart: 02-03-2025 End: 78-63-3282qzzlyrokqfSDHPHDJ S RUSHERNot AvailableStart: 01-06-2025 End: 99-94-7979Zricxn outpatient new 45 minutesFior Pinon DPM Work Phone: noms PODIATRYComment on above:Posterior tibial tendinitis of right lower extremity (Primary Dx); Stress fracture of left tibia, initial encounter; Acute right ankle pain; Instability of right ankle joint; Difficulty walkingStart: 01-06-2025 End: 07-96-1059lnwgvdteinJYWXOZX S RUSHERNot AvailableStart: 07-24-2023 End: 97-98-8236kpczseqmpbAsnsep La Other noLycera Other Start: 78-44-8031Ctogfh follow up visit related to original pxJustin KelleyFPG Trigg OrthopedicsStart: 05-06-2023 End: 21-06-5109fyvqrqdvseVkmbuw A KelleyFacility:[facility] Hospitaltart: 05-01-2023 End: 86-15-1705dunkafhyhnZbtfjr La Other noLycera Other Start: 91-16-4908Pjfaza follow up visit related to original pxJustin KelleyFPG Jeanette OrthopedicsStart: 04-17-2023 End: 82-86-1006ozfzcblpcwKFRQMI KELLEYFacility:A1Qbnhr: 13-47-5354Dmydor follow up visit related to original pxJustin KelleyFPG Trigg OrthopedicsStart: 04-10-2023 End: 25-89-5258gxqjhbrvanOjmtis La Other noLycera Other Start: 87-14-3911Quztbz follow up visit related to original pxJustin KelleyFPG Trigg OrthopedicsStart: 04-07-2023 End: 89-35-3726ttqwxfalmjWxuuyn A KelleyFacility:[facility] Hospitaltart: 04-06-2023 End: 39-64-1803gputxrsqkwAuzcwo Fritz ConcepcionFacility:[facility] Hospitaltart: 03-26-2023 End: 63-19-9315Iyvasrwgyz and management of inpatientAnoOlivera Facility:[facility]tart: 03-26-2023 End: 17-51-6084Gkjvtihwhy and management of inpatientDR AMILCAR SMITH .Facility: Start: 08-22-2022 End: 69-66-7389wtjbggoxkcOC HUBER Fritz NADERERFacility:W9Vjjkc: 50-48-3078Blqynuiff for general adult medical examination without abnormal findingsDR HUBER DEWEY [facility] Northtart: 08-19-2022 End: 67-79-9714pplupaoavyLZ MARC A NADERERFacility:C2Juzzq: 08-19-2022 End: 40-76-5681Okpjyxawh for general adult medical examination without abnormal findingsDR HUBER ARTHURRFacility:F2Pxwol: 09-30-2021 End: 77-00-9476vlhpzeqemwOukcq Ginty Other [place] [employer] Other Start: 25-87-9321Bgtbvj outpatient visit 15 minutes Harper GintyFPG [facility] [place] Procedures DateProcedureProcedure DetailPerforming ClinicianStart: 82-38-9188Dibdi ankle complete minimum 3 viewsAnthony S Kathrin DPM Work Phone: AppendectomyMichael NILL ColonoscopyMichael NILL Extraction of wisdom toothMichael NILL Vaginal hysterectomyMichael NILL Plan of Treatment DateCare ActivityDetailAuthorStart: 02-03-2025 End: 02-75-0949Bazhixg encounter lfaykcuna99/21/2025 10:30 AM EDT Office Visit [facility] [address] [place] [id number] Fior Pinon, DPM [address] [place], [place] [id number] [facility] PODIATRYStart: 33-82-1296Vausfjwcp vaccinationInfluenza Vaccine (#1)[facility] HealthcareStart: 90-96-1588Bsrzheedn for malignant neoplasm of breast MammogramNOMS HealthcareStart: 86-61-7652Oaizfnqtb for malignant neoplasm of cervixNOMS HealthcareStart: 28-86-7460Saphjsmvz for malignant neoplasm of cervix Pap SmearNOMS HealthcareStart: 18-02-8631Lqdkwhpak for malignant neoplasm of colonNOMS Healthcare Immunizations Immunization DateImmunizationNotesCare GdjoxegcGvrvogyk92-14-0873hpmffczda virus vaccine, unspecified formulationFior Pinon DPM Work Phone: [facility]linKtuptlpdlq61-45-7056GPVX-QqQ-2 mRNA (fmyuawtegnx-rmwi-svvhjjo) vaccineMichael NILL [phone]-OydhqWyandot Memorial Hospital Surgery [place] Comment on above:Result Comment: 2025-08-28: [id number]-UdS-2 (COVID- 19) mRNA BNT-162b2 vaxMichael NILL [phone]-YzhbwMercy Health St[facility] Comment on above:Result Comment: 2025-08-28: [id number]-PaT-4 (COVID- 19) mRNA BNT-162b2 vaxMichael NILL [phone]-JkoenProvidence Hospital General Surgery [place] 56-64-3970VEWX-CoV-2 (COVID-19) mRNA BNT-162b2 vaxMichael NILL [phone]-DtxtpMercy Health St. [facility] Payers DatePayer CategoryPayerPolicy [id number] Health InsuranceUNITED HEALTHCARE Member Subscriber Plan / Payer (Effective 2019- Present) Name: Laura Tyler Relation to Subscriber: Self Name: Laura Tyler Payer ID: [id number] (NAIC) Type: Not on file Address: [address] [id number] 2.0.1.560216.3.57[id number] 2.0.1.900009.3.57[id number] 2.0.1.584112.3.57[id number] 2.0.1.504523.3.57[id number] 2.0.1.400459.3.57[id number] 2..1.143066.3.57[id number] 2.0.1.863903.3.57[id number] 2.840.1.254341.3.57[id number] 2.0.1.346127.3.57[id number] 2.840.1.100844.19 [id number] 2.840.1.6[id number] 2.840.1.4[id number] 2..840.1.987990.3.579.2.531 [id number] 2..840.1.909614.3.579.2.531Worker's [id number] Social History DateTypeDetailFacilityUnknown if ever smokedNomineral area regional medical center [employer] Other Start: 53-88-0678Hwx [facility]igned [facility]tart: 01-06-2025 End: 83-66-8561Wstmkid smoking status NHISEx-smokerNOMS HealthcareHistory of tobacco useCurrent smokerNOMS HealthcareHistory of tobacco useCigarette Smoker [facility] HealthcareStart: 03-55-9929Ixkevjzyh beverage intakeCurrent drinker of alcohol (finding)[facility] HealthcareStart: 82-23-8997Bmivfpjnw beverage intakeNORI HealthcareStart: 56-76-0087Ybhvqnt CommentPatient quit 2016NORI HealthcareStart: 28-70-5756Lvqujwa Hlzhxvp2h a weekNORI HealthcareStart: 91-99-2888Sxd assigned at [facility] hospitalNot on [facility] SystemTobacco smoking statusNeThe [facility] Surgery [facility] Hospitalexual OrientationProvidence Hospital General Surgery [place] Start: 63-60-6478WzyNzaqlo (finding)[facility] Clinical Notes 09-30-2021 to 09-13-2025 Note Date & FifjEjwkEexhcxbj05-55-3028 NoteGeneral Surgery Office/Clinic Note Chief Complaint consultation for positive Cologuard HPI Staff 59 year old female presents on consultation from Dr. Smith for positive Cologuard. Reports occasionalepigastric pain with consumption of greasy foods, fatty foods, spicy foods and red dye. She takes Omeprazole PRN. Denies rectal pain or bleeding. Denies bowel changes. Denies nausea, vomiting or weight loss. Patient reports last colonoscopy was completed greater than 10 years ago- report could not be found. Brother with history of colon cancer- approximate age 63. History of Present Illness 59 yo female with h/o hypothyroidism, hypercholesterolemia, GERD, paroxysmal atrial fibrillation, referred positive Cologuard; patient denies change in bms or blood in stools, patient reports chronicGERD despite PPI, intermittent epigastric pain after eating; no dysphagia; abd operations significant for appendectomy, and vaginal hysterectomy, last colonoscopy >10 years ago, report not available; on Celebrex daily, no asa; no tobacco use; fmhx of colon cancer in patient's half brother, no fmhx of IBD. Review of Systems PHQ Score Initial Depression Screen Score: 0 SCORE ROS - Provider Constitutional: no fever, no sweats, no weight loss. Eyes: yes glasses, no blurred vision, no visual loss. ENMT: no dentures, no hoarseness, no swallowing difficulties, no hearing loss, no ear infection(s),no nose bleeds. Cardiovascular: normal blood pressure, no chest pain, regular heartbeat, no heart murmur. Respiratory: no shortness of breath, no cough, no asthma, no wheezing. Gastrointestinal: no nausea, no vomiting, no diarrhea, no constipation, no blood in stool, no change in bowel habits, no abdominal pain, no hepatitis. Genitourinary: no kidney stones, no urine infection, no dysuria. Musculoskeletal: no pain, no weakness. Skin: no changing moles, no rash, no skin lumps. Neurologic: no seizures, no epilepsy, no headache. Psychiatric: no emotional or psychiatric problem. Heme/Lymph: no bleeding problems, no anemia, no blood clots, no transfusions. Allergy/Immunologic: no swollen lymph nodes/glands, no IV drug abuse. Other: Additional ROS info: Except as noted in the above Review of Systems and in the History of Present Illness, all other systems have been reviewed and are negative or noncontributory. Physical Exam Vitals & Measurements HR: 70(Peripheral) RR: 16 BP: 110/62 HT: 157.4 cm HT: 62 in WT: 152.78 lb WT: 69.3 kg BMI: 27.97 HEENT: normal conjunctiva, sclera clear, no scleral icterus, EOM intact, PERRLA, oral mucosa moist without lesions. Neck: trachea midline, no mass, symmetric, no thyromegaly or nodules, no adenopathy Respiratory: lungs CTA, respirations non labored. Cardiovascular: regular rate and rhythm, no murmur, no pedal edema or varicosities. Gastrointestinal: soft, non distended, no tenderness, no masses, no palpable hernias, diastasis recti no, no hepatosplenomegaly; normal bs Musculoskeletal: normal gait, digits and nails without infection, nodes, cyanosis, clubbing. Skin: no rashes, no lesions, no ulcers, no subcutaneous nodules, induration. Psychiatric/Neuro: oriented to time, place, person, judgement normal, affect appropriate for age, insight intact, no focal deficits. Tests:, review of old records completed , Discussed surgical options, risks, and possible complications with patient. Assessment/Plan 1. Positive colorectal cancer screening using Cologuard test (R19.5: Other fecal abnormalities) plan colonoscopy under anesthesia for further evaluation, informed consent obtained. 2. Chronic GERD (K21.9: Gastro-esophageal reflux disease without esophagitis) plan EGD under anesthesia, informed consent obtained. 3. Epigastric pain (R10.13: Epigastric pain) see # 2 Follow-up No qualifying data available Problem List/Past Medical History Ongoing BMI 27.0-27.9,adult Chronic GERD Epigastric pain Gastroesophageal reflux disease Hypercholesterolemia Hypothyroidism Overweight Paroxysmal atrial fibrillation Positive colorectal cancer screening using Cologuard test Historical No qualifying data Procedure/Surgical History Appendectomy, Colonoscopy, Extraction of wisdom tooth, VH - Vaginal hysterectomy. Medications CeleBREX 200 mg Cap, 200 mg= 1 cap(s), Oral, BID levothyroxine 100 mcg (0.1 mg) Tab, 100 mcg= 1 tab(s), Oral, Daily omeprazole 40 mg Cap-DR, 40 mg= 1 cap(s), Oral, Daily simvastatin 20 mg Tab, 20 mg= 1 tab(s), Oral, qPM Allergies No Known Allergies No Known Medication Allergies Social History Alcohol Current, Beer, 1-2 times per week, 09/13/2025 Substance Abuse - Denies Substance Abuse, 09/13/2025 Tobacco Former smoker, quit more than 30 days ago Tobacco Use:. Never Smokeless Tobacco Use:. Cigarettes, 1.5 per day. Started age 14.0 Years. Stopped age 49 Years., 09/13/2025 Family History Cervical cancer: Sister. Heart disease: Father. Hypercholesterolemia: Father. (more content not included)...[facility] CenterComment on above:Result Comment: Electronically Signed By: MARK UMANZOR, Juvenal Galicia\Date and Time Signed: 09/13/25 14:51 [id number] History of Present illness Narrative* Fior Pinon, DPM - 01/06/2025 10:45 AM EST Images from the original note were not [...] of right ankle pain. She states that thishas been bothering her for about 8 days. She denies any injury. She states that in the past she hashad occasional pain along the medial aspect of the right ankle that typically goes away after a fewdays. She states that this current flare has [...] 150 MG & 10 x 100MG tablet therapypack, Take 1 Dose by mouth See administration [...] the posterior tibial tendon just posterior to themedial malleolus. No tenderness distal to the medial [...] forced inversion but I do not appreciate anycrepitus. There is limitation in eversion of the [...] of motion and strengthening exercises of the ankle.Patient states that she has noticed a lot of swelling in her legs and I recommend using a compression sock underneath the brace today. Patient was fitted for compression socks today. I recommended a M edrol Dosepak to help reduce inflammation and to help with symptomatology. [facility]cription [facility]. I also recommend 1 week off of work. She may return to work unrestricted next Thursday. I would like to follow up with her in 1 month. If she is still having significant issues I may consideran MRI. This note was created with the assistance of a speech recognition program. While intending to generate a timely document that accurately reflects the content of the visit, no guarantee can be provided that every grammatical or spelling mistake has been or will be identified or corrected. Thank you for your understanding. Fior Pinon DPM documented in this encounterNOMS Sglxbfdxzf01-63-5647 Evaluation note* Encounter Date Diagnosis Assessment Notes Treatment Notes Treatment Clinical Notes Jul, Left arm cellulitis (ICD-10 - L0 3.114) Laura returns today for follow-up of left [...] and strengthening. Continue to massage the area. Jul,Stiffness of left elbow joint (ICD-10 - M25.622) Jul,Other specified postprocedural states (ICD-10 - Z98.890) Jul,Left knee pain (ICD-10 - M25.562) Patient will continue to take anti inflammatory medication. If pain persists we will obtain x-rays at consider a cortisone injection. [facility] Other 06-16-2023 Evaluation note* Encounter Date Diagnosis Assessment Notes Treatment Notes Treatment Clinical Notes Apr, Left arm cellulitis (ICD-10 - L0 3.114) Laura returns today for follow-up of left [...] see her back 3 weeks after manipulation Apr,Other specified postprocedural states (ICD-10 - Z98.890) Wound [...] 3 months. Short term disability phone? number [phone] [facility] Other 06-02-2023 Evaluation note* Encounter Date Diagnosis Assessment Notes Treatment Notes Treatment Clinical Notes Apr, Left arm cellulitis (ICD-10 - L0 3.114) Laura returns today for follow-up of left [...] Continue local wound care. A portion of hersutures have been removed today and we will need to remove more of those at her return visit. I will plan to see her back in 2 weeks for recheck and suture removal Apr,Other specified postprocedural states (ICD-10 - Z98.890) Laura returns for follow up visit 1 week status post left arm I & D ( DOS 04/07/2023) 3 weeks status post left arm I&D/ application of incisional wound VAC 6 cm. There is some erythema anddrainage to the distal incision site. Those sutures will remain in place for now. All other sutureswere removed under sterile conditions. Patient advised to continue with physical therapy and motion and strengthening exercises at home. We will follow up in 2 weeks time. Apr,Encounter for removal of sutures (ICD-10 - Z48.02) [facility] Other 05-26-2023 Evaluation note* Encounter Date Diagnosis Assessment Notes Treatment Notes Treatment Clinical Notes March, Left arm cellulitis (ICD-10 - L0 3.114) Laura returns today for follow-up of repeat [...] prescribed. Follow-up in 1 week for recheck March,Other specified postprocedural states (ICD-10 - Z98.890) Patient is progressing well from surgery. We discussed the importance of continuing to work on range of motion and strength exercise. Patient provided an order for physical therapy. We discussed use of pain medication as needed for pain. Incisions evaluated and redressed. Continue with antibiotics.Call with any questions or concerns. [facility] Other [phone] NotePROCEDURE: XR FOREARM LT 2 VIEWS, XR [...] Electronically authenticated by: AC LOVING Date: 2023-03-24 11:04[facility]05-09-2023 NotePROCEDURE: XR FOREARM LT 2 VIEWS, XR [...] Electronically authenticated by: AC LOVING Date: 2023-03-24 11:04[facility]11-15-2021 Evaluation note* Encounter Date Diagnosis Assessment Notes Treatment Notes Treatment Clinical Notes Sep, Contact with and (workman spected) exposure to other viral communicable diseases (ICD-10 - Z20.828) Sep,Viral URI (ICD-10 - J06.9) Advised patient that [...] understanding and is agreeable to treatment plan Sep,OtherAdditional time spent conducting pre-visit phone call, screening for symptoms, instructions on social distancing, application and removal of PPE, and cleaning of examination room, equipment and supplies was preformed. Patient education given for testing methodology and results. Patient care instructions given in writting by [facility] Care At Home document [facility] Other Evaluation note* Diagnosis Posterior tibial tendinitis of right lower extremity- Primary Stress fracture of left tibia, initial encounter Acute right ankle pain Instability of right ankle joint Difficulty walking Difficulty in walking documented in this encounter [facility] HealthcareHistory general Narrative - Reported* Type Description Date Medical History Tachycardia Surgical HistoryhysterectomySurgical HistoryappendectomySurgical History colonoscopySurgical HistoryfingerHospitalization Historysee above [facility] Other History general Narrative - Reported* Type Description Date Medical History Tachycardia Surgical HistoryhysterectomySurgical HistoryappendectomySurgical History colonoscopySurgical HistoryfingerSurgical HistoryI & d left forearm Hospitalization Historysee above [facility] Other Hospital course Narrative No data available for this section [facility] Discharge instructions No data available for this section [facility] [place] Progress note No data available for this section [facility] [place] Summary Purpose Family History No Family History Records FoundNo Family History Records FoundNo Family History Records FoundNo Family History Records Found No data available for this section No Family History Records Found Advance Directives No Advanced Directives Records FoundNo Advanced Directives Records FoundNo Advanced Directives Records FoundNo Advanced Directives Records FoundNo Advanced Directives Records Found Additional Source Comments REASON FOR VISIT (unrecogniz ed section and content) ReasonCommentsAnkle PainKimberly Bear 59yo New patient presents with Right ankle pain, patient relates history of broken ankle and sprains, hairline Fx 14 months. 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 (11/2023).SS8 INFORMATION SOURCE (unrecogn ized section and content) DATE CREATED AUTHOR 04/24/2023 [facility] DATE CREATED AUTHOR AUTHOR'S ORGANIZ ATION 05/28/2023 [facility] DATE CREATED AUTHOR AUTHOR'S ORGANIZ ATION 02/05/2025 [facility] DATE CREATED AUTHOR AUTHOR'S ORGANIZ ATION 06/02/2025 [facility] DATE CREATED AUTHOR AUTHOR'S ORGANIZ ATION 09/15/2025 [facility] Care Teams (unrecognized sec tion and content) Team MemberRelationshipSpecialtyStart DateEnd Date Huber Dewey MD [address] [place] [id number] PCP - GeneralFamily Xoavddkf01/1/23 FOR RECORDS PERTAINING TO PATIENTS WHO ARE [...] BE BASED ON THE PRIMARY CLINICAL RECORDS. [facility], [facility]. provides no warranty or guarantee of the accuracy or completeness of information in this document.
--- OUTSIDE RECORDS SUMMARY | 2025-09-26 13:11 | XMS_ITS | Patient Health Record ---
Author Organization [facility] in [place] Address [address] [place] [address] Care Team Providers Care Waist Cutter Name Role Phone Renzo Smith Primary Care Provider [phone] Allergies No Known Allergies Results Component Value Reference Range Notes FREE T3 Reviewed date:07/03/2025 07:20:36 PM Interpretation: Performing Lab: Notes/Report: [facility] , Free T3 2.67 2.18-3.98 pg/mL Performing Lab:see [facility] LBGLYCOHEMOGLOBIN A1C Reviewed date:07/03/2025 07:20:36 PM Interpretation: Performing Lab: Notes/Report: [facility] ,Glycohemoglobin A1C5.74.5-6.2 % ADA RECOMMENDED LIMIT 4.0 - 6.0 ADA THERAPEUTIC TARGET < 7.0 ACTION SUGGESTED > 7.0 Estimated Average Mupnoqs059Najxewnyrc Lab:see [facility] LB INSULIN Reviewed date:07/04/2025 08:36:52 PM Interpretation: Performing Lab: Notes/Report: [facility] ,Insulin2.52.6-24.9 uIU/mL Performed at: - [facility] [address] [id number] Payroll And Benefits Manager: Chuckie Vazquez PhD, Phone: [phone] Performing Lab:see donnie - [facility] LBIRON Reviewed date:07/03/2025 07:20:36 PM Interpretation: Performing Lab: Notes/Report: [facility] ,Iron90.050.0-170.0 ug/dLPerforming Lab:[facility] LIPID PROFILE Reviewed date:07/03/2025 07:20:36 PM Interpretation: Performing Lab: Notes/Report: [facility] ,Lcxdfohyhlwya49<=150 mg/oQDwpmjjgtzre639<=200 mg/dLHDL Vysobzllruw2578-46 mg/dL > or =60 mg/dl - LOW CARDIOVASCULAR RISK <40 mg/dl - HIGH CARDIOVASCULAR RISK LDL Cholesterol Fdsjsojihj353.0 <100 mg/dl OPTIMAL 100-129 mg/dl NEAR OR ABOVE OPTIMAL 130-159 mg/dl BORDERLINE HIGH 160-189 mg/dl HIGH >190 mg/dl VERY HIGH VLDL CHOLESTEROL6.2Chol HDL Ratio3.2 3.3 - 4.4 LOW RISK 4.4 - 7.1 AVERAGE RISK 7.1 - 11.0 MODERATE RISK >11.0 HIGH RISK Performing Lab:see noteML - [facility] LBPROF 14(COMP METB) Reviewed date:07/03/2025 07:20:36 PM Interpretation: Performing Lab: Notes/Report: [facility] ,Oplolo688431-577 mmol/LPotassium3.63.5-5.1 mmol/CZuyidwsz56425-221 mmol/LCarbon Mvkrxbk65.321.0-32.0 mmol/LAnion Gap11.0Fsauscz2395-795 mg/dLBlood Urea Nitrogen 21.07.0-18.0 mg/dLCreatinine0.540.55-1.02 mg/dLEstimated GFR ( Jodie>60 >=60 mL/min/1.73m 2Estimated GFR (Non- Gaby>60>=60 mL/min/1.73m 2BUN Creatinine Ratio38.5Irkyzxx0.98.5-10.1 mg/dLBilirubin Total0.60.2-1.0 mg/dL Aspartate Amino Zdmsziaafgi9743-68 U/LAlanine Lmvddcmbsbwbmdem4609-46 U/L Alkaline Lbsrrynbgbp73671-031 U/LTotal Protein8.06.4-8.2 g/dLAlbumin Level4.1 3.4-5.0 g/dLGlobulin3.9Albumin Globulin Ratio1.1Performing Lab:see noteML - [facility] LBT4 Reviewed date:07/03/2025 07:20:36 PM Interpretation: Performing Lab: Notes/Report: [facility] ,T4 Lhqdmmsgg95.404.80-13.90 ug/dLPerforming Lab:see noteML - [facility] LBTSH Reviewed date:07/03/2025 07:20:36 PM Interpretation: Performing Lab: Notes/Report: [facility] ,Thyroid Stimulating Hormone0.3320.358-3.740 uIU/mLPerforming Lab:see noteML - [facility] LBMM tomosynthesis screening BI Reviewed date:07/04/2025 08:36:52 PM Interpretation: Performing Lab: Notes/Report: Source Facility: [facility] [place] [address] [place] [address] Mammography Report Signed Patient: LAURA SIFUENTES MR#: [id number] : 1965 Acct:[id number] Age/Sex: 59 / F ADM Date: 07/04/25 Loc: MAMMO Attending Dr: Amilcar Smith M.D. Ordering Physician: Amilcar Smith M.D. Results: Date of Service: 07/04/25 Follow Up: Procedure(s): MM tomosynthesis screening BI Accession Number(s): [id number] cc: Amilcar Smith M.D. Patient Name: LAURA SIFUENTES MR#: [id number] : 1965 Exam Date: 07/04/2025 Ordering Doctor: DR AMILCRA SMITH . RADIOLOGY REPORT PROCEDURE: MM TOMOSYNTHESIS SCREENING BI COMPARISON: MG MAMM SCREEN [place]ILLARY W CAD, 08/30/2019. MG MAMM SCREEN [place]ARY W CAD, 04/27/2018. MG MAMM [place]ARY SCRN W CAD DIG, 05/10/2013. INDICATIONS: Screening Calculator Name NCI Breast Cancer Risk Assessment Tool 5 Year Breast Cancer Risk 1.30% Lifetime Breast Cancer Risk 7.70% Personal Breast Cancer No Personal Ovarian Cancer No Treatments None Family Cancers Mother with bone cervical cancer at age 47; Sister with cervical cancer at age 30. LOCATION: [facility] BREAST COMPOSITION: There are scattered areas of fibroglandular density. FINDINGS: RIGHT BREAST: No significant suspicious finding. Several small for asymmetries are noted on the right. LEFT BREAST: No significant suspicious finding. DIAGNOSTIC CATEGORY 2--BENIGN FINDING: RECOMMENDATIONS: ROUTINE MAMMOGRAM AND CLINICAL EVALUATION IN 12 MONTHS. PLEASE NOTE: A NORMAL MAMMOGRAM DOES NOT EXCLUDE THE POSSIBILITY OF BREAST CANCER. A CLINICALLY SUSPICIOUS PALPABLE LUMP SHOULD BE BIOPSIED. Dictated by: Braden Rae MD on 07/04/2025 at 14:49 Approved by: Braden Rae MD on 07/04/2025 at 14:53 Dictated By: Braden Rae M.D. Signed By: 07/04/25 1454 DD/ 1453 TD/TT: Export Freight Clerk:CBC AUTO DIFF Reviewed date:07/03/2025 07:20:36 PM Interpretation: Performing Lab: Notes/Report: [facility] ,White Blood Count4.04.0-11.0 10 3/uLRed Blood Count5.474.20-5.40 10 6/uL Zprogrfcxz15.512.0-16.0 g/pZNuzjmwzlhg05.236.0-48.0 %Mean Corpuscular Agjruo62.3 81.0-99.0 fLMean Corpuscular Fmldfwmpwl65.326.7-34.0 pgMean Corpuscular HGB Conc 32.829.9-35.2 g/dLRed Cell Distribution Width14.111.0-15.0 %Platelet Nlsii547 150-450 10 3/uLMean Platelet Ciacol74.69.5-13.5 fLNeutrophils Percent Auto64.6 43.0-75.0 %Lymphocytes Percent Auto22.020.5-60.0 %Monocytes Percent Auto8.11.7- 12.0 %Eosinophils Percent Auto4.00.9-7.0 %Basophils Percent Auto1.30.2-2.0 % Immature Granulocytes Pct Auto0.00.0-0.5 %Neutrophils Absolute Auto2.61.4-6.5 10 3/uLLymphocytes Absolute Auto0.91.2-3.8 10 3/uLMonocytes Absolute Auto0.30.3-0.8 10 3/uLEosinophils Absolute Auto0.20.0-0.7 10 3/uLBasophils Absolute Auto0.10.0- 0.1 10 3/uLImmature Granulocytes Abs Auto0.000.00-0.03 10 3/uLPerforming Lab:see noteML - [facility] LBCT lung screening low-dose Reviewed date:07/19/2025 12:46:07 PM Interpretation: Performing Lab: Notes/Report: Source Facility: [facility] [place] [address] [place] [address] CT Scan Report Signed Patient: LAURA SIFUENTES MR#: [id number] : 1965 Acct:[id number] Age/Sex: 59 / F ADM Date: 07/18/25 Loc: CT Attending Dr: Amilcar Smith M.D. Ordering Physician: Amilcar Smith M.D. Date of Service: 07/18/25 Procedure(s): CT lung screening low-dose Accession Number(s): [id number] cc: Amilcar Smith M.D. [place] [address] Patient Name: LAURA SIFUENTES MRN: [id number] date: 1965 Sex: F Assigned Patient Location: CT Current Patient Location: CT Accession/Order Number: [id number] Exam Date: 07/18/2025 09:19 Report Date: 07/18/2025 09:57 At the request of: AMILCAR SMITH MD Procedure: CT lung screening low-dose LOW-DOSE SCREENING CHEST CT WITHOUT CONTRAST COMPARISON: None CLINICAL DATA: Former smoker for greater than 33 years. Spiral axial unenhanced low-dose images were obtained through the chest. Images were reviewed using both narrow and wide window settings. This CT exam was performed using one or more following dose reduction techniques: Automated exposure control, adjustment of the mA and/or kV according to patient size, or use of iterative reconstruction technique. The heart is normal in size. No pericardial effusion is seen. There is minor coronary artery disease. No aortic aneurysm is noted. Small benign-appearing mediastinal and axillary lymph nodes are visualized. There is slight dextroscoliotic curvature and minor endplate spurring at the spine. There is obstructive lung disease with airspace lucencies. Scarring is present at both lung apices. Additional scarring or atelectasis is present. There is no focal consolidation, pleural effusion or pneumothorax. There are multiple scattered pulmonary nodules, greater on the right measuring up to 5 mm in size at the right lower lobe. Limited imaging through the upper abdomen shows diverticular disease at the splenic flexure. CT/CT lung screening low-dose IMPRESSION: OBSTRUCTIVE LUNG DISEASE WITH MINOR SCARRING AND/OR ATELECTASIS. TINY PULMONARY NODULES. Lung RADS category 2 - benign Twelve-month low-dose CT follow-up suggested. Impression dictated by: Alethea Macario M.D. 07/18/2025 9:57 AM Dictation Location: [place] [address] Electronically authenticated by: [id number] Y Date: 07/18/2025 09:57 Dictated By: Alethea Macario M.D. Signed By: 07/18/25958 DD/ 6 TD/TT: Export Freight Clerk: Reason For Referral Diagnosis 1 Positive colorectal cancer screening using Cologuard test (R19.5) Referral Organization [facility] Referring Provider First Name Renzo Referring Provider Last Name Wilbert Referring Provider Speciality Family Med angela Referred Provider Juvenal Crespo Referred Provider Specialty General Surg tesfaye Referral Priority Routine Medications Medication SIG (Take, Route, Frequency, Duration) Notes Start Date End Date Status Omeprazole 40 MG 1 capsule 1/2 to 1 h our before morning meal Orally Once a day; Duration: 90 days ActiveSimvastatin 20 MG1 tablet in the evening Orally Once a day; Duration: 30 days5ActiveLevothyroxine Sodium 100 MCG1 tablet in the morning on an empty stomach Orally Once a day; Duration: 90 daysActiveCelecoxib 200 MGTAKE 1 CAPSULE BY MOUTH TWICE A DAY NEEDED; Duration: 90Active Social History Tobacco Use: Social History Observation Description Date Details (start date - stop date) Former Smoker 06/20/1985 - 06/18/2015 Tobacco Control (Standard) Question Answer Notes Tobacco use: Former smoker When did you start smoking?06/20/1985When did you stop smoking?06/18/2015How long has it been since you last smoked?5-10 yearsAUDIT-C (Standard) Question Answer Notes Did you have a drink containing alcohol in the p ast year? Yes How often did you have a drink containing alcohol in the past year?2 to 3 times a week (3 points)How many drinks did you have on a typical day when you were drinking in the past year?3 or 4 drinks (1 point)How often did you have six or more drinks on one occasion in the past year?Less than monthly (1 point)Points5 InterpretationPositive Problems Problem Type SNOMED Code ICD Code Onset Dates Problem Status W/U Status Risk Notes Problem Gastroesophageal ref lux disease (855183782) GERD (gastroesophageal reflux disease) (K21.9) ActiveconfirmedProblemHypothyroid (62957056)Hypothyroid (E03.9)Activeconfirmed ProblemArthritis (6105963)Arthritis (M19.90)ActiveconfirmedProblemArthralgia (51698515)Arthralgia (M25.50)ActiveconfirmedProblemWell adult (177707554)Well adult (Z00.00)ActiveconfirmedProblemhypercholesterolemia (disorder) (60544281) Hypercholesteremia (E78.00)Activeconfirmed Vital Signs Blood pressure diastolic 62 mm Hg 06/29/2025 Nflplt67 in06/29/2025lood pressure mm Hg06/29/20257162Htkwmv096.0 lbs 06/29/2025BMI29.08 kg/m206/29/2025 Encounters Encounter Location Date Provider Diagnosis [facility] [address] [place] [address] 06/29/2025 Renzo Smith Well adult Z00.00 ; Arthralgia M25.50 ; Hypothyroid E03.9 and GERD (gastroesophageal reflux disease) K21.9 [facility] [address] [place] [address] 07/03/2025 Renzo Smith Hypercholesteremia E 78.00 [facility] [address] [place] [address] 07/04/[address] [facility] [place] [address] [facility] [place] [address] [place] [address]/[facility] [place] [address]/Do HoyPositive colorectal cancer screening using Cologuard test R19.5 Assessments Encounter Date Diagnosis (ICD Code) Assessment Notes Treatment Notes Treatment Clinical Notes Section Notes 06/29/2025 Arthralgia (ICD-10 - M25.50) 06/29/2025Well adult (ICD-10 - Z00.00)07/03/2025Hypercholesteremia (ICD-10 - E78.00)08/14/2025Positive colorectal cancer screening using Cologuard test (ICD- 10 - R19.5)06/29/2025Hypothyroid (ICD-10 - E03.9)06/29/2025GERD (gastroesophageal reflux disease) (ICD-10 - K21.9) Plan Of Treatment Pending Test Test Name Order Date HEMOGLOBIN A1C (GLYCO) 06/29/2025 IRON, TOTAL 06/29/2025 LIPID PANEL (CHOL/TRIG/HDL/LDL) 06/29/20 25 Insulin Level 06/29/2025 STOOL OCCULT BLOOD 06/29/2025 LIPID PROFILE 07/03/2025 LIVER PROFILE 07/03/2025 THYROID PANEL (T4/TSH/FREE T3) 5 MM screening mammo BI 06/29/2025 CT CHEST LOW DOSE (LDCT) 06/29/2025 CMP (COMP MET SNIDER) w/eGFR CKD-EPI 2024 CBC WITH DIFF 06/29/2025 Insurance Providers Payer Name Payer Address Payer Phone Subscriber Number Group Number Insured Name Patient Relationship to Insured Coverage Start Date Coverage End Date [employer] PO [address] [place] [id number] Laura Sifuentes Self - patient is the insured Medical (General) History Medical History History ICD Code Arthritis M19.90
== END 2025-09-26 13:06 | disposition home or self-care (01) ==
LOC: PST 13:05
PROVIDERS: PCP Family Medicine; Visit Provider Surgery
DX: Z01.818 Encounter for other preprocedural examination (principal); R19.5 Other fecal abnormalities

== ENCOUNTER 2025-10-04 07:29 | Day surgery (SDC) | payer OTHER, SELFPAY ==
--- NOTE | 2025-10-04 | OP_ITS ---
OPERATION DATE: 10/04/2025 PREOPERATIVE DIAGNOSIS: Chronic gastroesophageal reflux disease, as well as intermittent epigastric abdominal pain and positive Cologuard. POSTOPERATIVE DIAGNOSIS: A 4 cm sliding type hiatal hernia, as well as a 3 mm sigmoid polyp, moderate sigmoid diverticulosis. PROCEDURE: Colonoscopy to cecum with cold snare polypectomy x1. SURGEON: Juvenal Crespo M.D. ANESTHESIA: Monitored anesthesia care. ESTIMATED BLOOD LOSS: Less than 1 mL. INDICATIONS AND CONSENT: Patient is a 59-year-old female, with history of chronic gastroesophageal reflux disease, as well as intermittent postprandial epigastric abdominal pain. She also has recent positive Cologuard. Indications, risks, benefits, alternatives of proceeding with EGD and colonoscopy were explained extensively to the patient, including the risks of bleeding, aspiration, esophageal/gastric/duodenal or colonic perforation or anesthetic complications. All of her questions were answered. Informed consent was obtained. PROCEDURE: Patient brought to the operating room, placed in the left lateral decubitus position. Monitored anesthesia care was provided. A bite block was placed in the patient?s mouth. Scope was inserted into the oropharynx. Under direct visualization, it was advanced. It was advanced into the esophagus, past the cricopharyngeus, down to the stomach. The stomach was insufflated with air. The pylorus was traversed down to the descending portion of the duodenum. There was no evidence of duodenitis or ulceration. There was no scarring within the pyloric channel. There was no evidence of gastritis. The scope was pulled back into the stomach and retroflexed. There was a sliding type hiatal hernia. No other gastric mucosal abnormalities. The GE junction was noted at approximately 30 cm. There was an approximately 4 cm hiatal hernia. No distal esophagitis. The Z-line was regular. Remainder of the esophagus was unremarkable. The scope was then withdrawn. Patient was then positioned for colonoscopy. Rectal exam was performed, which showed no masses or blood. The scope was then inserted into the anal canal. Under direct visualization, it was advanced. It was advanced to the cecum where cecal markings were clearly identified. There was noted to be a good prep. Upon withdrawal of the scope, mucosal surfaces were carefully examined. There were no mass lesions or inflammatory changes. There was moderate sigmoid diverticulosis, without inflammatory changes or scarring.. Within the distal sigmoid, there was noted to be a 3 mm sessile polyp that was removed with cold snare with good hemostasis. The scope was retroflexed in the anal canal. There was no significant hemorrhoidal disease. The scope was then withdrawn. The patient tolerated procedure well, was sent to recovery room in good condition. Follow up surveillance colonoscopy likely in five years. CC: Surjit Atkins M.D. PR[facility]
--- OUTSIDE RECORDS SUMMARY | 2025-10-04 07:34 | XMS_ITS | CCD ---
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 Name Role Phone Harper Shin Unavailable LUIS [...] Primary Care Unavailable Jigar, John Admitting Unavailable Nadererajan, Huber Primary Care [...] TypeDate of OnsetReaction(s) Facility (1 source)PenicillinsDrug allergy (disorder)51-17-9159BsmsyipfwWestern [facility] Hospital Repository (1 source)No Known Medication Allergies; 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: [No Known Medication Allergies]Propensity to adverse reactions (disorder)[facility] Repository Medications Current Medications MedicationDrug Class(es)DatesSig (Normalized)Sig (Original)acetaminophen 500 mg oral tablet (4 sources)Start: 30-00-8587awfg 2 tablets by mouth every eight hours Acetaminophen 500 MG 2 tablets Orally Every 8 hours for 30 days March, Activecelecoxib 200 mg oral capsule (3 sources)Nonsteroidal Anti-inflammatory DrugStart: 64-54-7116hsgt 1 capsule by mouth twice dailyCeleBREX 200 mg Cap 200 mg = 1 cap(s), Oral, BID, Refills(s) 0 Start Date: 08/28/25 Status: OrderedMedication Dispense Status: Completed Total Allowed Fills: 1 Fills Dispensed: 0Start: 41-71-6122bpik 1 capsule by mouth at bedtimecelecoxib (CeleBREX) 200 MG capsule Indications: Arthralgia of right ankle take 1 capsule by mouth IN THE MORNING and BEFORE BEDTIME 180 capsule 3 04/12/2024 Activecetirizine hydrochloride 10 mg oral tablet (2 sources)Histamine-1 Receptor AntagonistStart: 25-51-4132wvky 1 tablet by mouth every twenty-four hoursCetirizine HCl 10 MG 1 tablet Orally Once a day for 14 days Sep, Activefluticasone propionate 0.05 mg/actuat metered dose nasal spray (1 source)CorticosteroidStart: 19-79-3373tkvk 1 spray(s) nasal route once daily Flonase Allergy Relief 50 MCG/ACT 1 spray in each nostril Nasally Once a day for 14 day(s) Sep, Activeibuprofen 800 mg oral tablet (2 sources)Nonsteroidal Anti-inflammatory DrugStart: 23-45-0759qcam 1 tablet by mouth three times dailyibuprofen 800 MG tablet Indications: Arthralgia of both ankles take 1 tablet by mouth three times aday if needed 90 tablet 3 05/20/2024 Activelevothyroxine sodium 0.1 mg oral tablet (3 sources)l-ThyroxineStart: 05-28-6615zijs 1 tablet by mouth once daily levothyroxine 100 mcg (0.1 mg) Tab 100 mcg = 1 tab(s), Oral, Daily, Refills(s) 0 Start Date: 08/28/25 Status: Ordered Medication Dispense Status: Completed Total Allowed Fills: 1 Fills Dispensed: 0Start: 25-70-3057lphf 1 tablet by mouth once dailylevothyroxine (Synthroid, Levoxyl) 100 MCG tablet Indications: Adult hypothyroidism (CMS/HCC) TAKE 1 TABLET BY MOUTH EVERY DAY 90 tablet 3 08/24/2024 Activelinezolid 600 mg oral tablet (1 source)Oxazolidinone AntibacterialLinezolid 600 MG TAKE 1 TABLET BY MOUTH TWICE DAILY FOR 14 DAYS Oral for 14 Days 12 pills ActivemethylPREDNISolone (2 sources)CorticosteroidStart: 87-38-3912utxlkxKPEHDWKfxykt (Medrol Dospak) 4 MG tablets Indications: Posterior tibial tendinitis of right lower extremity Take as directed on package. 21 tablet 01/06/2025 ActiveNirmatrelvir&Ritonavir 300/100 (Paxlovid, 300/100,) 20 x 150 MG & 10 x 100MG tablet therapypack (2 sources)Start: 64-34-3621Jnaxtxttupeh&Ritonavir 300/100 (Paxlovid, 300/100,) 20 x 150 MG & 10 x 100MG tablet therapypack Indications: COVID Take 1 Dose by mouth See administration instructions 1 each 11/26/2023 Activeomeprazole 40 mg delayed release oral capsule (5 sources)Proton Pump InhibitorStart: 50-51-6741jsxg 1 capsule by mouth once dailyomeprazole 40 mg Cap-DR 40 mg = 1 cap(s), Oral, Daily, Refills(s) 0 Start Date: 08/28/25 Status: Ordered Medication Dispense Status: Completed Total Allowed Fills: 1 Fills Dispensed: 0Start: 35-40-7213xanl 1 capsule by mouth once dailyomeprazole (PriLOSEC) [address] capsule Indications: Chronic GERD TAKE 1 CAPSULE BY MOUTH EVERY DAY 90 capsule 1 12/09/2024 ActiveOmeprazole 40 MG Oral for 30 Days ActiveoxyCODONE hydrochloride 5 mg oral tablet (3 sources)Opioid AgonistStart: 95-74-1918iqis 1 tablet by mouth every four hours as needed for painoxyCODONE HCl 5 MG 1 tablet Orally every 4 hours, as needed for pain for 7 days HEATHER # [id number] March, ActivePenicillin (2 sources)Penicillin 28 pills Activesimvastatin 20 mg oral tablet (1 source)HMG-CoA Reductase InhibitorStart: 58-79-1889essz 1 tablet by mouth once daily in the eveningsimvastatin 20 mg Tab 20 mg = 1 tab(s), Oral, qPM, Refills(s) 0 Start Date: 09/13/25 Status: Ordered Medication Dispense Status: Completed Total Allowed Fills: 1 Fills Dispensed: 0 Completed/Discontinued Medications MedicationDrug Class(es)DatesSig (Normalized)Sig (Original)cefTRIAXone (4 sources)Cephalosporin AntibacterialStart: 54-15-6640Qwmkrilu 500 mg Oct, 500 mg Problems Active Problems Problem ClassificationProblemDateDocumented DateEpisodic/ChronicAbdominal pain (2 sources)Epigastric pain; 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: [Epigastric pain]Onset: 09-13-2025 EpisodicCardiac dysrhythmias (4 sources)Unspecified atrial fibrillation; 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: [Paroxysmal atrial fibrillation]Onset: 073489-07-7036DlblfinJbyimhlf of white blood cells (1 source)Elevated white blood cell count, unspecified; 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: [Elevated white blood cell count, unspecified]Onset: 13-00-3845RbfyewpIgohmgevv of lipid metabolism (1 source)Mqjmhwslqdvuwoxlraxv25-87-5471PvxukdhP Codes: Struck by; against (1 source)Walked into wall, initial encounter; 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: [WALKED INTO WALL INITIAL ENCOUNTER]Onset: 68-61-1322KesjezktTkmbwgrdnd disorders (3 sources)Gastro-esophageal reflux disease without esophagitis; 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: [Gastroesophageal reflux disease]Onset: 20-72-4336NvanmqgWfnwa and electrolyte disorders (1 source)Hypokalemia; 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: [HYPOKALEMIA]Onset: 43-16-7233Knjbsmem Fracture of lower limb (2 sources)Stress fracture of left tibia; 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: [Stress fracture, left tibia, initial encounter for fracture]47-28-3790WidkkzxlOtiwboods and duodenitis (2 sources)Chronic superficial gastritis; 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: [Chronic superficial gastritis without bleeding]Onset: 359005-30-2238OvafxydQjxndeargr disorders (1 source)Hormone replacement therapy; 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: [HORMONE REPLACEMENT THERAPY]Onset: 73-52-5125XcpikjldMmoi wounds of extremities (1 source)Laceration without foreign body of left index finger without damage to nail, initial encounter; 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: [Laceration without foreign body of left index finger without damage to nail, initial encounter]Onset: 53-23-3109Dihppflc Other aftercare (1 source)Other detention (current) drug therapy; 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: [OTH CORRECTION CURRENT DRUG THERAPY]Onset: 49-63-3335MahnhaemGqoci aftercare (1 source)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; 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: [CORRECTION CURRENT USE OF ASPIRIN]Onset: 67-74-6027IzzzpibjCdsmn aftercare (1 source)Encounter for removal of suturesEpisodicOther connective tissue disease (2 sources)Tendinitis of right posterior tibial tendon; 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: [Posterior tibial tendinitis, right leg]95-25-6537XyzmyxrfJpuww gastrointestinal disorders (1 source)Other fecal abnormalitiesOnset: 60-50-1779OemydcyqGyxwa injuries and conditions due to external causes (2 sources)Laceration - injuryOnset: 06-29-5313WyxvhbwoNjaqn nervous system disorders (2 sources)Difficulty walking; 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: [Difficulty in walking, not elsewhere classified]41-04-3839RajdcaoWkwas non-traumatic joint disorders (1 source)Stiffness of left elbow, not elsewhere classifiedEpisodicOther non- traumatic joint disorders (1 source)Pain in left kneeEpisodicOther non-traumatic joint disorders (2 sources)Acute ankle pain; 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: [Pain in right ankle and joints of right foot]71-90-9254HhgnkejbYszia non-traumatic joint disorders (2 sources)Instability of joint of right ankle; 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: [Other instability, right ankle]68-43-7998OvczetwtOqioa nutritional; endocrine; and metabolic disorders (1 source)Zuakapqrie03-54-3664TzdxyiukHtass nutritional; endocrine; and metabolic disorders (1 source)Overweight in adulthood with body mass index of 25 or more but less than 3533-25-5534PfvidcqiTthva screening for suspected conditions (not mental disorders or infectious disease) (2 sources)Abnormal results of kidney function studies; 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: [Stool DNA-based colorectal cancer screening positive]Onset: EpisodicResidual codes; unclassified (1 source)Family history of malignant neoplasm of bladder; 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: [FAM HX MALIGNANT NEOPLASM BLADDER]Onset: 07-61-6896QdsrhfliFxnxsyjq codes; unclassified (1 source)Family history of malignant neoplasm of other organs or systems; 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: [FAM HX MALIG NEOPLASM OTH ORGN/SYS]Onset: 99-47-1642Glnjixcb Residual codes; unclassified (4 sources)Other specified postprocedural statesEpisodicScreening and history of mental health and substance abuse codes (1 source)Personal history of nicotine dependence; 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: [PERSONAL HISTORY OF NICOTINE DEPEND]Onset: 77-12-9016GxgiydxgJmxz and subcutaneous tissue infections (10 sources)Cellulitis of left upper limb; 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: [Cellulitis, unspecified]Onset: 54-50-5491QoeehsuvVahgrjmorzu injury; contusion (1 source)Contusion of left forearm, initial encounter; 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: [CONTUSION LEFT FOREARM INITIAL ENC]Onset: 12-34-1603SabswjkzOltvlmy disorders (3 sources)Hypothyroidism; 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: [Hypothyroidism, unspecified]Onset: 917699-50-9763InlpcqmSamqppjepqfk (1 source)Ankylosis, left elbow; 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, left elbow]Onset: 81-91-6450Icnmpxrjccrw (1 source)Cellulitis of left upper limb; 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: [Cellulitis of left upper limb]Onset: 04-07-2023 Past or Other Problems Problem ClassificationProblemDateDocumented DateEpisodic/ChronicImmunizations and screening for infectious disease (1 source)Contact with and (suspected) exposure to other viral communicable diseasesOnset: 09-30-2021 Resolved: 99-62-2297PomtvglnTzdgk non-traumatic joint disorders (4 sources)Pain in right ankle and joints of right foot; 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: [PAIN IN RIGHT ANKLE]Onset: 08-31-6286ZoztwyybPxsyt non-traumatic joint disorders (1 source)Pain in left ankle and joints of left foot; 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: [PAIN IN LEFT ANKLE]Onset: 16-38-8885CjqeowscZwhwv non-traumatic joint disorders (2 sources)Bilateral ankle joint pain; 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: [Pain in right ankle and joints of right foot]Onset: 670844-74-9631RazzcupqMusoq non-traumatic joint disorders (2 sources)Chronic pain of left upper limb; 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: [Pain in left shoulder]Onset: 806939-44-4004AfjynotiTnfvo skin disorders (2 sources)Vesicular eczema; 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: [Dyshidrosis [pompholyx]]Onset: 640309-82-6301YztddtdcSsclt upper respiratory infections (1 source)Acute upper respiratory infection, unspecifiedOnset: 09-30-2021 Resolved: 88-59-5157UnylkcjuUgfmug media and related conditions (2 sources)Rupture of right tympanic membrane due to otitis media; 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: [Otitis media, unspecified, right ear]Onset: 316160-91-8708Deudqcjz Results Test NameValueInterpretationReference RangeFacilityAmbulatory Visit Summaryon 58-41-3922Mgyzyjvxnw Visit SummaryAmbulatory Visit Summary LAURA TYLER :1965 [...] signed up for this yet, please contact [employer] at [phone] to get signed up today. Language Information Language assistance services are available as needed. [facility]XR [facility] 2ND DIGIT MIN 2 VWS on 57-08-3451UZ FINGER LT 2ND DIGIT MIN 2 VWSXR [...] Mya Robles MD on 05/29/2025 1:56 PMNormalProMedica Fresno Heart & Surgical HospitalXR Ankle - right 3 Viewson 63-28-3469Pbvqcot Result: AP, mortise, lateral views are weight-bearing. Diffuse osteopenia. Small enthesophyte at the insertion of the Achilles tendon. Mild radiopacity across the tibia approximately 3 cm above the fused distal tibial physis. Talus appears well seated within the ankle mortise. No fractures or dislocations noted.[facility] HealthcareRadiology Study observation (narrative)[facility] CenterXR elbow LT 2Von 24-14-3474BO elbow LT [facility] [place] [address] XRay Report Signed Patient: Laura Tyler MR#: [id number] : 1965 Acct:[id number] Age/Sex: 57 / F ADM Date: 05/06/23 Loc: [place] Room: Type: [facility] Attending Dr: Janny Concepcion DO [...] Braden Rae M.D.05/06/2023 10:05 AM Dictation Location: [place] [address] Transcribed By: [facility] 05/06/23 1005 Dictated By: Braden Rae II, MD 05/06/23 1003 Signed By: 05/06/23 1005NoCommunity Regional Medical CenterCT forearm LT wo conon 86-97-6467FW forearm LT wo [facility] [place] [address] CT Scan Report Signed Patient: Laura Tyler MR#: [id number] : 1965 Acct:[id number] Age/Sex: 57 / F ADM Date: 04/06/23 Loc: CT Room: Type: REG CLI Attending Dr: Janny Concepcion DO Copies to: Janny Concepcion DO Ordering Provider: Janny Concepcion DO Date of Service: 04/06/23 CT/CT humerus LT wo con: L03.114 ([id number]) CT/CT forearm LT wo con: Left arm [...] Braden Rae M.D.04/06/2023 4:54 PM Dictation Location: [place] [address] Transcribed By: [facility] 04/06/231653 Dictated By: Braden Rae II, MD 04/06/23 164 Signed By: 04/06/231653NormHolzer HospitalC-Reactive Proteinon 28-31-4822J-Reactive Protein8.3 mg/dLHigh0.0-0.5FTogus VA Medical CenterComment on above:Result Comment: PERFORMED BY: [place] [address] PATHOLOGIST CALTRANS EQUIPMENT OPERATOR FREDY PRICE M.D.Performed By: #### CRP #### [place] [address] USAComplete Blood Count Auto Diffon 92-24-0023Hbhrofrbs (Bld) [#/Vol]0.1 10*3/uLNormal0.0-0.2FTogus VA Medical CenterComment on above:Result Comment: PERFORMED BY: [place] [address] PATHOLOGIST CALTRANS EQUIPMENT OPERATOR FREDY PRICE M.D.Performed By: #### CBC #### [place] [address] USABasophils/100 WBC (Bld)0.6 %Normal.[facility] HospitalComment on above:Performed By: #### CBC #### [place] [address] USAEosinophils (Bld) [#/Vol]0.3 10*3/uLNormal0.0-0.45 [facility] HospitalComment on above:Performed By: #### CBC #### [place] [address] USAEosinophils/100 WBC (Bld)2.5 %Normal.[facility] HospitalComment on above:Performed By: #### CBC #### [place] [address] USAErythrocyte distribution width (RBC) [Ratio]14.2 %Normal 11.9-15.3FTogus VA Medical CenterComment on above:Performed By: #### CBC #### [place] [address] USAHematocrit (Bld) [Volume fraction]34.0 %Pzblhs67.0-46.4 [facility] HospitalComment on above:Performed By: #### CBC #### [place] [address] USAHemoglobin (Bld) [Mass/Vol]10.9 g/dLLow11.8-15.4FTogus VA Medical CenterComment on above:Performed By: #### CBC #### [place] [address] USALymphocytes (Bld) [#/Vol]1.0 10*3/uLNormal1.00-4.8 [facility] HospitalComment on above:Performed By: #### CBC #### [facility] [address] [place] [address] USALymphocytes/100 WBC (Bld)8.8 %Normal.[facility] HospitalComment on above:Performed By: #### CBC #### [facility] [address]H (RBC) [Entitic mass]27.3 jlQvmevb02.7-34.3FTogus VA Medical CenterComment on above:Performed By: #### CBC #### [facility] [address] [place] [address] USAV (RBC) [Entitic vol]85.4 cJQwoatv56-034SmowtyiojWestern Reserve HospitalComment on above:Performed By: #### CBC #### [place] [address] USAMean Corpuscular HGB Conc32.0 g/kMZmbcwh30.0-35.0[facility] HospitalComment on above:Performed By: #### CBC #### [place] [address] USAMonocytes (Bld) [#/Vol]0.3 10*3/uLNormal0.0-0.8[facility] HospitalComment on above:Performed By: #### CBC #### [place] [address] USAMonocytes/100 WBC (Bld)2.3 %Normal.[facility] HospitalComment on above:Performed By: #### CBC #### [place] [address] USANeutrophils (Bld) [#/Vol]9.9 10*3/uLHigh1.8-7.7FTogus VA Medical CenterComment on above:Performed By: #### CBC #### [place] [address] USANeutrophils/100 WBC (Bld)85.8 %Normal.[facility] HospitalComment on above:Performed By: #### CBC #### [facility] [address] [place] [address] USANRBC%0.0 /100{WBC}Normal0-0.5FTogus VA Medical CenterComment on above:Performed By: #### CBC #### [facility] [address] [place] [address] USAPlatelet mean volume (Bld) [Entitic vol]7.5 fLNormal 6.3-10.7FTogus VA Medical CenterComment on above:Performed By: #### CBC #### [place] [address] USAPlatelets (Bld) [#/Vol]476 10*3/mOCpps636-934YuteifrveWestern Reserve HospitalComment on above:Performed By: #### CBC #### [facility] [address] [place] [address] USARBC (Bld) [#/Vol]3.98 10*6/uLNormal3.60-5.00[facility] HospitalComment on above:Performed By: #### CBC #### [place] [address] USAWBC (Bld) [#/Vol]11.5 10*3/uLNormal3.8-11.6FTogus VA Medical CenterComment on above:Performed By: #### CBC #### [place] [address] USABasic Metabolic Panelon 69-57-2536Amleg gap [Moles/Vol]9.0 mmol/LNormal6.0-15.0[facility] HospitalComment on above:Performed By: #### BMP #### [place] [address] USACalcium [Mass/Vol]7.7 mg/dLLow8.6-10.3FTogus VA Medical CenterComment on above:Performed By: #### BMP #### [place] [address] [place] [address] USAChloride [Moles/Vol]102 mmol/EArgqna98-059AdtlswizdWestern Reserve HospitalComment on above:Performed By: #### BMP #### [facility] [address] [place] [address] USACO2 [Moles/Vol]30.4 mmol/SZgekmi89.0-31.0[facility] HospitalComment on above:Performed By: #### BMP #### [facility] [address] [place] [address] USACreatinine [Mass/Vol]0.63 mg/dLNormal0.60-1.20[facility] HospitalComment on above:Performed By: #### BMP #### [facility] [address] [place] [address] USACreatinine Clr Calc Ncduyvjn148.55NormalWestern Reserve HospitalComment on above:Result Comment: PERFORMED BY: [place] [address] PATHOLOGIST CALTRANS EQUIPMENT OPERATOR FREDY PRICE M.D.Performed By: #### BMP #### [place] [address] USAGFR/1.73 sq M.predicted MDRD (S/P/Bld) [Vol rate/Area] mL/min/{1.73_m2}NormalWestern Reserve HospitalComment on above: Performed By: #### BMP #### [facility] [address] [place] [address] USAGlucose [Mass/Vol]85 mg/rZFukegx98-152DrplhgrhzWestern Reserve HospitalComment on above:Result Comment: Random Glucose Reference Range is dependent on time and content of last meal. Glucose of more than 200 mg/dL in a nonstressed, ambulatory subject supports the diagnosis of Diabetes Mellitus. ADA recommended reference rangePerformed By: #### BMP #### [facility] [address] [place] [address] USAPotassium [Moles/Vol]4.4 mmol/LNormal3.5-5.1FTogus VA Medical CenterComment on above:Performed By: #### BMP #### [facility] [address] [place] [address] USASodium [Moles/Vol]137 mmol/MAdacrk108-076KxijtsrxyWestern Reserve HospitalComment on above:Performed By: #### BMP #### [facility] [address] [place] [address] USAUrea nitrogen [Mass/Vol]14 mg/dLNormal7-25[facility] HospitalComment on above:Performed By: #### BMP #### [facility] [address] [place] [address] USAComplete Blood Count Auto Diffon 23-06-9736Cxnjqpuny (Bld) [#/Vol]0.0 10*3/uLNormal0.0-0.2FTogus VA Medical CenterComment on above:Result Comment: PERFORMED BY: [place] [address] PATHOLOGIST CALTRANS EQUIPMENT OPERATOR FREDY PRICE M.D.Performed By: #### ESR, CRP #### [place] [address] USABasophils/100 WBC (Bld)0.4 %Normal.[facility] HospitalComment on above:Performed By: #### ESR, CRP #### [place] [address] USAEosinophils (Bld) [#/Vol]0.2 10*3/uLNormal0.0-0.45 [facility] HospitalComment on above:Performed By: #### ESR, CRP #### [place] [address] USAEosinophils/100 WBC (Bld)1.4 %Normal.[facility] HospitalComment on above:Performed By: #### ESR, CRP #### [place] [address] USAErythrocyte distribution width (RBC) [Ratio]14.5 %Normal 11.9-15.3FTogus VA Medical CenterComment on above:Performed By: #### ESR, CRP #### [facility] [address] [place] [address] USAHematocrit (Bld) [Volume fraction]32.7 %Low34.0-46.4 [facility] HospitalComment on above:Performed By: #### ESR, CRP #### [place] [address] USAHemoglobin (Bld) [Mass/Vol]10.6 g/dLLow11.8-15.4FTogus VA Medical CenterComment on above:Performed By: #### ESR, CRP #### [place] [address] USALymphocytes (Bld) [#/Vol]1.0 10*3/uLNormal1.00-4.8 [facility] HospitalComment on above:Performed By: #### ESR, CRP #### [place] [address] USALymphocytes/100 WBC (Bld)8.7 %Normal.[facility] HospitalComment on above:Performed By: #### ESR, CRP #### [place] [address] USAMCH (RBC) [Entitic mass]27.6 mxGfxawx40.7-34.3FTogus VA Medical CenterComment on above:Performed By: #### ESR, CRP #### [place] [address] USAMCV (RBC) [Entitic vol]85.4 wYQdyxri37-155PawhrhlvnWestern Reserve HospitalComment on above:Performed By: #### ESR, CRP #### [place] [address] USAMean Corpuscular HGB Conc32.3 g/xQHexidc50.0-35.0[facility] HospitalComcorewell health reed city hospital on above:Performed By: #### ESR, CRP #### [place] [address] USAMonocytes (Bld) [#/Vol]0.3 10*3/uLNormal0.0-0.8[facility] HospitalComment on above:Performed By: #### ESR, CRP #### [facility] [address] [place] [address] USAMonocytes/100 WBC (Bld)2.7 %Normal.[facility] HospitalComment on above:Performed By: #### ESR, CRP #### [facility] [address] [place] [address] USANeutrophils (Bld) [#/Vol]10.4 10*3/uLHigh1.8-7.7FTogus VA Medical CenterComment on above:Performed By: #### ESR, CRP #### [facility] [address] [place] [address] USANeutrophils/100 WBC (Bld)86.8 %Normal.[facility] HospitalComment on above:Performed By: #### ESR, CRP #### [facility] [address] [place] [address] USANRBC%0.1 /100{WBC}Normal0-0.5FTogus VA Medical CenterComment on above:Performed By: #### ESR, CRP #### [facility] [address] [place] [address] USAPlatelet mean volume (Bld) [Entitic vol]7.6 fLNormal 6.3-10.7FTogus VA Medical CenterComment on above:Performed By: #### ESR, CRP #### [facility] [address] [place] [address] USAPlatelets (Bld) [#/Vol]450 10*3/gCDvdpmx032-023JgqligcbcWestern Reserve HospitalComment on above:Performed By: #### ESR, CRP #### [facility] [address] [place] [address] USARBC (Bld) [#/Vol]3.83 10*6/uLNormal3.60-5.00[facility] HospitalComment on above:Performed By: #### ESR, CRP #### [facility] [address] [place] [address] USAWBC (Bld) [#/Vol]12.0 10*3/uLHigh3.8-11.6FTogus VA Medical CenterComment on above:Performed By: #### ESR, CRP #### [facility] [address] [place] [address] USABasic Metabolic Panelon 93-88-7970Ntvzx gap [Moles/Vol] 10.7 mmol/LNormal6.0-15.0[facility] HospitalComment on above: Performed By: #### BMP, CBC #### [place] [address] USACalcium [Mass/Vol]7.7 mg/dLLow8.6-10.3FTogus VA Medical CenterComment on above:Performed By: #### BMP, CBC #### [place] [address] USAChloride [Moles/Vol]101 mmol/FUjmzqe12-222BbxvojzbdWestern Reserve HospitalComment on above:Performed By: #### BMP, CBC #### [place] [address] USACO2 [Moles/Vol]31.2 mmol/LHigh21.0-31.0[facility] HospitalComment on above:Performed By: #### BMP, CBC #### [place] [address] USACreatinine [Mass/Vol]0.71 mg/dLNormal0.60-1.20[facility] HospitalComment on above:Performed By: #### BMP, CBC #### [place] [address] USACreatinine Clr Calc Lrbebdfo78.38NormHolzer HospitalComment on above:Result Comment: PERFORMED BY: [place] [address] PATHOLOGIST CALTRANS EQUIPMENT OPERATOR FREDY PRICE M.D.Performed By: #### BMP, CBC #### [place] [address] USAGFR/1.73 sq M.predicted MDRD (S/P/Bld) [Vol rate/Area] mL/min/{1.73_m2}NormalWestern Reserve HospitalComment on above: Performed By: #### BMP, CBC #### [facility] [address] [place] [address] USAGlucose [Mass/Vol]84 mg/pHOjukgs11-864FvgqapfskWestern Reserve HospitalComment on above:Result Comment: Random Glucose Reference Range is dependent on time and content of last meal. Glucose of more than 200 mg/dL in a nonstressed, ambulatory subject supports the diagnosis of Diabetes Mellitus. ADA recommended reference rangePerformed By: #### BMP, CBC #### [place] [address] USAPotassium [Moles/Vol]3.9 mmol/LNormal3.5-5.1FTogus VA Medical CenterComment on above:Performed By: #### BMP, CBC #### [place] [address] USASodium [Moles/Vol]139 mmol/DLgkhzn606-440XzezsvwmvWestern Reserve HospitalComment on above:Performed By: #### BMP, CBC #### [place] [address] USAUrea nitrogen [Mass/Vol]17 mg/dLNormal7-25Western Reserve HospitalComment on above:Performed By: #### BMP, CBC #### [place] [address] USAComplete Blood Count Auto Diffon 13-54-2850Gvexfuvms (Bld) [#/Vol]0.1 10*3/uLNormal0.0-0.2FTogus VA Medical CenterComment on above:Result Comment: PERFORMED BY: [place] [address] PATHOLOGIST [employer]ANS EQUIPMENT OPERATOR FREDY PRICE M.D.Performed By: #### BMP, CBC #### [place] [address] USABasophils/100 WBC (Bld)0.3 %Normal.Western Reserve HospitalComment on above:Performed By: #### BMP, CBC #### [facility] [address] [place] [address] USAEosinophils (Bld) [#/Vol]0.1 10*3/uLNormal0.0-0.45 Western [facility] HospitalComment on above:Performed By: #### BMP, CBC #### [facility] [address] [place] [address] USAEosinophils/100 WBC (Bld)0.9 %Normal.Western Reserve HospitalComment on above:Performed By: #### BMP, CBC #### [place] [address] USAErythrocyte distribution width (RBC) [Ratio]14.2 %Normal 11.9-15.3FTogus VA Medical CenterComment on above:Performed By: #### BMP, CBC #### [place] [address] USAHematocrit (Bld) [Volume fraction]33.1 %Low34.0-46.4 Western Reserve HospitalComment on above:Performed By: #### BMP, CBC #### [place] [address] USAHemoglobin (Bld) [Mass/Vol]10.6 g/dLLow11.8-15.4FTogus VA Medical CenterComment on above:Performed By: #### BMP, CBC #### [place] [address] USALymphocytes (Bld) [#/Vol]0.9 10*3/uLLow1.00-4.8Western Reserve HospitalComment on above:Performed By: #### BMP, CBC #### [place] [address] USALymphocytes/100 WBC (Bld)6.1 %Normal.Western Reserve HospitalComment on above:Performed By: #### BMP, CBC #### [place] [address] USAMCH (RBC) [Entitic mass]27.3 lzJdwdwa05.7-34.3FTogus VA Medical CenterComment on above:Performed By: #### BMP, CBC #### [place] [address] USAMCV (RBC) [Entitic vol]85.5 oXQszfcb54-855EojzzqscoWestern Reserve HospitalComment on above:Performed By: #### BMP, CBC #### [place] [address] USAMean Corpuscular HGB Conc31.9 g/dLLow32.0-35.0Western Reserve HospitalComment on above:Performed By: #### BMP, CBC #### [place] [address] USAMonocytes (Bld) [#/Vol]0.3 10*3/uLNormal0.0-0.8Western Reserve HospitalComment on above:Performed By: #### BMP, CBC #### [place] [address] USAMonocytes/100 WBC (Bld)2.3 %Normal.Western Reserve HospitalComment on above:Performed By: #### BMP, CBC #### [place] [address] USANeutrophils (Bld) [#/Vol]13.5 10*3/uLHigh1.8-7.7FTogus VA Medical CenterComment on above:Performed By: #### BMP, CBC #### [place] [address] USANeutrophils/100 WBC (Bld)90.4 %Normal.Western Reserve HospitalComment on above:Performed By: #### BMP, CBC #### [place] [address] USANRBC%0.0 /100{WBC}Normal0-0.5FTogus VA Medical CenterComment on above:Performed By: #### BMP, CBC #### [facility] [address] [place] [address] USAPlatelet mean volume (Bld) [Entitic vol]7.8 fLNormal 6.3-10.7FTogus VA Medical CenterComment on above:Performed By: #### BMP, CBC #### [facility] [address] [place] [address] USAPlatelets (Bld) [#/Vol]447 10*3/lFOfkyvt216-770KdigjhjloWestern Reserve HospitalComment on above:Performed By: #### BMP, CBC #### [facility] [address] [place] [address] USARBC (Bld) [#/Vol]3.87 10*6/uLNormal3.60-5.00Western Reserve HospitalComment on above:Performed By: #### BMP, CBC #### [place] [address] USAWBC (Bld) [#/Vol]14.9 10*3/uLHigh3.8-11.6FTogus VA Medical CenterComment on above:Performed By: #### BMP, CBC #### [facility] [address] [place] [address] USABasic Metabolic Panelon 75-93-4575Duxkm gap [Moles/Vol]8.2 mmol/LNormal6.0-15.0Western Reserve HospitalComment on above:Performed By: #### ESR, CRP #### [facility] [address] [place] [address] USACalcium [Mass/Vol]8.1 mg/dLLow8.6-10.3FTogus VA Medical CenterComment on above:Performed By: #### ESR, CRP #### [facility] [address] [place] [address] USAChloride [Moles/Vol]100 mmol/RLigmvp96-824XhdkzrujhWestern Reserve HospitalComment on above:Performed By: #### ESR, CRP #### [facility] [address] [place] [address] USACO2 [Moles/Vol]34.7 mmol/LHigh21.0-31.0Western Reserve HospitalComment on above:Performed By: #### ESR, CRP #### [facility] [address] [place] [address] USACreatinine [Mass/Vol]0.65 mg/dLNormal0.60-1.20Western Reserve HospitalComment on above:Performed By: #### ESR, CRP #### [facility] [address] [place] [address] USACreatinine Clr Calc Gvqjwtii371.75NormalWestern Reserve HospitalComment on above:Performed By: #### ESR, CRP #### [facility] [address] [place] [address] USAGFR/1.73 sq M.predicted MDRD (S/P/Bld) [Vol rate/Area] mL/min/{1.73_m2}[facility] Vincent Medical CenterComment on above: Performed By: #### ESR, CRP #### [place] [address] USAGlucose [Mass/Vol]120 mg/pTNgvw96-641TpzcemtxxWestern Reserve HospitalComment on above:Result Comment: Random Glucose Reference Range is dependent on time and content of last meal. Glucose of more than 200 mg/dL in a nonstressed, ambulatory subject supports the diagnosis of Diabetes Mellitus. ADA recommended reference rangePerformed By: #### ESR, CRP #### [facility] [address] [place] [address] USAPotassium [Moles/Vol]3.9 mmol/LNormal3.5-5.1FTogus VA Medical CenterComment on above:Performed By: #### ESR, CRP #### [facility] [address] [place] [address] USASodium [Moles/Vol]139 mmol/DUutsnz597-480EtmmaammhWestern Reserve HospitalComment on above:Performed By: #### ESR, CRP #### [facility] [address] [place] [address] USAUrea nitrogen [Mass/Vol]16 mg/dLNormal7-25Western Reserve HospitalComment on above:Performed By: #### ESR, CRP #### [place] [address] USAComplete Blood Count Auto Diffon 16-19-7177Hxdpghbgm (Bld) [#/Vol]0.1 10*3/uLNormal0.0-0.2FTogus VA Medical CenterComment on above:Result Comment: PERFORMED BY: [place] [address] PATHOLOGIST [employer]TRANS EQUIPMENT OPERATOR FREDY PRICE M.D.Performed By: #### ESR, CRP #### [place] [address] USABasophils/100 WBC (Bld)0.4 %Normal.Western Reserve HospitalComment on above:Performed By: #### ESR, CRP #### [place] [address] USAEosinophils (Bld) [#/Vol]0.0 10*3/uLNormal0.0-0.45 [facility] HospitalComment on above:Performed By: #### ESR, CRP #### [place] [address] USAEosinophils/100 WBC (Bld)0.0 %Normal.[facility] Reserve HospitalComment on above:Performed By: #### ESR, CRP #### [place] [address] USAErythrocyte distribution width (RBC) [Ratio]14.2 %Normal 11.9-15.3FTogus VA Medical CenterComment on above:Performed By: #### ESR, CRP #### [place] [address] USAHematocrit (Bld) [Volume fraction]34.8 %Wkalvc27.0-46.4 [facility] HospitalComment on above:Performed By: #### ESR, CRP #### [place] [address] USAHemoglobin (Bld) [Mass/Vol]11.1 g/dLLow11.8-15.4FTogus VA Medical CenterComment on above:Performed By: #### ESR, CRP #### [facility] [address] [place] [address] USALymphocytes (Bld) [#/Vol]0.9 10*3/uLLow1.00-4.8Western Reserve HospitalComment on above:Performed By: #### ESR, CRP #### [facility] [address] [place] [id number] USALymphocytes/100 WBC (Bld)3.6 %Normal.Western Reserve HospitalComment on above:Performed By: #### ESR, CRP #### [facility] [address] [place] [address] USAMCH (RBC) [Entitic mass]27.0 igGshnau98.7-34.3FTogus VA Medical CenterComment on above:Performed By: #### ESR, CRP #### [facility] [address] [place] [address] USAMCV (RBC) [Entitic vol]84.5 bFXsylui83-107XmuidydclWestern Reserve HospitalComment on above:Performed By: #### ESR, CRP #### [facility] [address] [place] [address] USAMean Corpuscular HGB Conc32.0 g/vVPdehzb29.0-35.0Western Reserve HospitalComment on above:Performed By: #### ESR, CRP #### [facility] [address] [place] [address] USAMonocytes (Bld) [#/Vol]0.5 10*3/uLNormal0.0-0.8Western Reserve HospitalComment on above:Performed By: #### ESR, CRP #### [facility] [address] [place] [address] USAMonocytes/100 WBC (Bld)2.3 %Normal.Western Reserve HospitalComment on above:Performed By: #### ESR, CRP #### [facility] [address] [place] [address] USANeutrophils (Bld) [#/Vol]22.4 10*3/uLHigh1.8-7.7FTogus VA Medical CenterComment on above:Performed By: #### ESR, CRP #### [facility] [address] [place] [address] USANeutrophils/100 WBC (Bld)93.7 %Normal.Western Reserve HospitalComment on above:Performed By: #### ESR, CRP #### [facility] [address] [place] [address] USANRBC%0.0 /100{WBC}Normal0-0.5FTogus VA Medical CenterComment on above:Performed By: #### ESR, CRP #### [facility] [address] [place] [address] USAPlatelet mean volume (Bld) [Entitic vol]8.1 fLNormal 6.3-10.7FTogus VA Medical CenterComment on above:Performed By: #### ESR, CRP #### [place] [address] USAPlatelets (Bld) [#/Vol]398 10*3/mNNkhxul443-913AcobvddyqWestern Reserve HospitalComment on above:Performed By: #### ESR, CRP #### [facility] [address] [place] [address] USARBC (Bld) [#/Vol]4.12 10*6/uLNormal3.60-5.00Western Reserve HospitalComment on above:Performed By: #### ESR, CRP #### [place] [address] USAWBC (Bld) [#/Vol]23.9 10*3/uLHigh3.8-11.6FTogus VA Medical CenterComment on above:Performed By: #### ESR, CRP #### [place] [address] USAECG 12 lead ECGon 12-21-7615BRJ 12 [facility] [place] [address] [place] [address] Electrocardiograph Report Signed Patient: Laura Tyler MR#: [id number] : 1965 Acct:[id number] Age/Sex: 57 / F ADM Date: 03/26/23 Loc: Room: [address] [place] [address] Type: ADM IN Attending Dr: Arabella Bynum [...] Inferior leads Confirmed by NISHANT ARREAGA MD (Formerly [facility]) on 03/30/2023 4:27:00 PM Referred By: Electronically Signed By:NISHANT ARREAGA MD Transcribed By: MUS Signed By Nishant Arreaga MD 0 03/30/[address] Vincent Medical CenterMagnesiumon 03-30-2023 Magnesium [Mass/Vol]1.8 mg/dLLow1.9-2.7FTogus VA Medical CenterComment on above:Result Comment: PERFORMED BY: [place] [id number] PATHOLOGIST [employer] EQUIPMENT OPERATOR FREDY PRICE M.D.Performed By: #### ESR, CRP #### [place] [id number] USAAerobic Cultureon 05-32-7628Oqqslhf CultureORGANISM: Streptococcus pyogenes grp A (O:STRPYO) Comments Organism Not Routinely Tested for Susceptibilities Quantity of Growth Light Growth No Anaerobes Isolated 3 Days Gram Stain Result 1+ White Blood Cells Rare Gram Positive Cocci PERFORMED BY: [address] [id number] PATHOLOGIST CALTR[employer] EQUIPMENT OPERATOR FREDY PRICE M.D.[facility] Vincent Medical CenterComment on above: Performed By: #### BMP, CBC #### [facility] [address] [place] [address] USABasic Metabolic Panelon 63-12-9402Yoize gap [Moles/Vol]9.8 mmol/LNormal6.0-15.0Western Reserve HospitalComment on above:Performed By: #### BMP, CBC #### [facility] [address] [place] [address] USACalcium [Mass/Vol]8.2 mg/dLLow8.6-10.3FTogus VA Medical CenterComment on above:Performed By: #### BMP, CBC #### [facility] [address] [place] [address] USAChloride [Moles/Vol]100 mmol/MFoxeln83-566EzaxhsxfkWestern Reserve HospitalComment on above:Performed By: #### BMP, CBC #### [facility] [address] [place] [address] USACO2 [Moles/Vol]31.7 mmol/LHigh21.0-31.0Western [facility] HospitalComment on above:Performed By: #### BMP, CBC #### [place] [address] USACreatinine [Mass/Vol]0.60 mg/dLNormal0.60-1.20Western [facility] HospitalComment on above:Performed By: #### BMP, CBC #### [facility] [address] [place] [address] USACreatinine Clr Calc Znmxvgzi403.56NormalWestern Reserve HospitalComment on above:Result Comment: PERFORMED BY: [place] [address] PATHOLOGIST CALTRANS EQUIPMENT OPERATOR FREDY PRICE M.D.Performed By: #### BMP, CBC #### [place] [address] USAGFR/1.73 sq M.predicted MDRD (S/P/Bld) [Vol rate/Area] mL/min/{1.73_m2}[facility] Vincent Medical CenterComment on above: Performed By: #### BMP, CBC #### [facility] [address] [place] [address] USAGlucose [Mass/Vol]92 mg/gVFpxvcc40-258KclcxbjbkWestern Reserve HospitalComment on above:Result Comment: Random Glucose Reference Range is dependent on time and content of last meal. Glucose of more than 200 mg/dL in a nonstressed, ambulatory subject supports the diagnosis of Diabetes Mellitus. ADA recommended reference rangePerformed By: #### BMP, CBC #### [facility] [address] [place] [address] USAPotassium [Moles/Vol]3.5 mmol/LNormal3.5-5.1FTogus VA Medical CenterComment on above:Performed By: #### BMP, CBC #### [place] [address] USASodium [Moles/Vol]138 mmol/IOzohoo662-307VldzrhjblWestern Reserve HospitalComment on above:Performed By: #### BMP, CBC #### [place] [address] USAUrea nitrogen [Mass/Vol]9 mg/dLNormal7-25Western [facility] HospitalComment on above:Performed By: #### BMP, CBC #### [place] [address] USAComplete Blood Count Auto Diffon 29-53-0515Pclyvlhvz (Bld) [#/Vol]0.1 10*3/uLNormal0.0-0.2FTogus VA Medical CenterComment on above:Result Comment: PERFORMED BY: [place] [address] PATHOLOGIST [employer] EQUIPMENT OPERATOR FREDY PRICE M.D.Performed By: #### BMP, CBC #### [place] [address] USABasophils/100 WBC (Bld)0.3 %Normal.Western Reserve HospitalComment on above:Performed By: #### BMP, CBC #### [place] [address] USAEosinophils (Bld) [#/Vol]0.2 10*3/uLNormal0.0-0.45 [facility] HospitalComment on above:Performed By: #### BMP, CBC #### [facility] [address] [place] [address] USAEosinophils/100 WBC (Bld)1.0 %Normal.[facility] Reserve HospitalComment on above:Performed By: #### BMP, CBC #### [facility] [address] [place] [address] USAErythrocyte distribution width (RBC) [Ratio]14.3 %Normal 11.9-15.3FTogus VA Medical CenterComment on above:Performed By: #### BMP, CBC #### [place] [address] USAHematocrit (Bld) [Volume fraction]35.2 %Ocqobv55.0-46.4 [facility] HospitalComment on above:Performed By: #### BMP, CBC #### [facility] [address] [place] [address] USAHemoglobin (Bld) [Mass/Vol]11.4 g/dLLow11.8-15.4FTogus VA Medical CenterComment on above:Performed By: #### BMP, CBC #### [place] [address] USALymphocytes (Bld) [#/Vol]1.0 10*3/uLNormal1.00-4.8 [facility] HospitalComcorewell health reed city hospital on above:Performed By: #### BMP, CBC #### [facility] [address] [place] [address] USALymphocytes/100 WBC (Bld)4.7 %Normal.[facility] Reserve HospitalComment on above:Performed By: #### BMP, CBC #### [facility] [address] [place] [address] USAMCH (RBC) [Entitic mass]27.3 scAlpjal31.7-34.3FTogus VA Medical CenterComment on above:Performed By: #### BMP, CBC #### [facility] [address] [place] [address] USAMCV (RBC) [Entitic vol]84.1 yKWnbzej06-125EajqpcmtjWestern Reserve HospitalComment on above:Performed By: #### BMP, CBC #### [facility] [address] [place] [address] USAMean Corpuscular HGB Conc32.5 g/iQEevvre99.0-35.0Western [facility] HospitalComment on above:Performed By: #### BMP, CBC #### [facility] [address] [place] [address] USAMonocytes (Bld) [#/Vol]0.8 10*3/uLNormal0.0-0.8Western Reserve HospitalComment on above:Performed By: #### BMP, CBC #### [facility] [address] [place] [address] USAMonocytes/100 WBC (Bld)3.8 %Normal.[facility] Reserve HospitalComment on above:Performed By: #### BMP, CBC #### [facility] [address] [place] [address] USANeutrophils (Bld) [#/Vol]18.4 10*3/uLHigh1.8-7.7FTogus VA Medical CenterComment on above:Performed By: #### BMP, CBC #### [facility] [address] [place] [address] USANeutrophils/100 WBC (Bld)90.2 %Normal.[facility] Reserve HospitalComment on above:Performed By: #### BMP, CBC #### [facility] [address] [place] [address] USANRBC%0.0 /100{WBC}Normal0-0.5FTogus VA Medical CenterComment on above:Performed By: #### BMP, CBC #### [facility] [address] [place] [address] USAPlatelet mean volume (Bld) [Entitic vol]8.2 fLNormal 6.3-10.7FTogus VA Medical CenterComment on above:Performed By: #### BMP, CBC #### [facility] [address] [place] [address] USAPlatelets (Bld) [#/Vol]368 10*3/wNTweayi122-820WeetjtsqdWestern Reserve HospitalComment on above:Performed By: #### BMP, CBC #### [facility] [address] [place] [address] USARBC (Bld) [#/Vol]4.18 10*6/uLNormal3.60-5.00[facility] HospitalComment on above:Performed By: #### BMP, CBC #### [facility] [address] [place] [address] USAWBC (Bld) [#/Vol]20.4 10*3/uLHigh3.8-11.6FTogus VA Medical CenterComment on above:Performed By: #### BMP, CBC #### [facility] [address] [place] [address] USABasic Metabolic Panelon 33-98-9920Mbzpm gap [Moles/Vol] 10.1 mmol/LNormal6.0-15.0[facility] HospitalComment on above: Performed By: #### BMP, CBC #### [facility] [address] [place] [address] USACalcium [Mass/Vol]8.0 mg/dLLow8.6-10.3FTogus VA Medical CenterComment on above:Performed By: #### BMP, CBC #### [facility] [address] [place] [address] USAChloride [Moles/Vol]101 mmol/TOivzut11-844PezexskfjWestern Reserve HospitalComment on above:Performed By: #### BMP, CBC #### [facility] [address] [place] [address] USACO2 [Moles/Vol]29.2 mmol/QSqillh05.0-31.0[facility] HospitalComment on above:Performed By: #### BMP, CBC #### [facility] [address] [place] [address] USACreatinine [Mass/Vol]0.68 mg/dLNormal0.60-1.20[facility] HospitalComment on above:Performed By: #### BMP, CBC #### [facility] [address] [place] [address] USACreatinine Clr Calc Ghjnrgcg67.34NormalWestern Reserve HospitalComment on above:Result Comment: PERFORMED BY: [facility] [address] [place] [address] PATHOLOGIST [employer] EQUIPMENT OPERATOR FREDY PRICE M.D.Performed By: #### BMP, CBC #### [facility] [address] [place] [address] USAGFR/1.73 sq M.predicted MDRD (S/P/Bld) [Vol rate/Area] mL/min/{1.73_m2}NormalWestern Reserve HospitalComment on above: Performed By: #### BMP, CBC #### [place] [address] USAGlucose [Mass/Vol]92 mg/eNVcsklk46-739HhfqvonjzWestern Reserve HospitalComment on above:Result Comment: Random Glucose Reference Range is dependent on time and content of last meal. Glucose of more than 200 mg/dL in a nonstressed, ambulatory subject supports the diagnosis of Diabetes Mellitus. ADA recommended reference rangePerformed By: #### BMP, CBC #### [place] [address] USAPotassium [Moles/Vol]3.3 mmol/LLow3.5-5.1FTogus VA Medical CenterComment on above:Performed By: #### BMP, CBC #### [facility] [address] [place] [address] USASodium [Moles/Vol]137 mmol/ERblhys648-107KeksihwnvWestern Reserve HospitalComment on above:Performed By: #### BMP, CBC #### [facility] [address] [place] [address] USAUrea nitrogen [Mass/Vol]9 mg/dLNormal7-25[facility] Reserve HospitalComment on above:Performed By: #### BMP, CBC #### [place] [address] USABlood Cultureon 48-93-4691Uwnnwdsp identified Cx Nom (Bld) NO GROWTH 5 DAYS PERFORMED BY: [place] [address] PATHOLOGIST [employer] EQUIPMENT OPERATOR FREDY PRICE M.D.[facility] Vincent Medical CenterComment on above: Performed By: #### BMP, CBC #### [place] [address] USAC-Reactive Proteinon 02-06-2546M-Reactive Gnzqafz49.4 mg/dLHigh0.0-0.5FTogus VA Medical CenterComment on above:Result Comment: PERFORMED BY: [place] [address] PATHOLOGIST [employer] EQUIPMENT OPERATOR FREDY PRICE M.D.Performed By: #### ESR, CRP #### [place] [address] USACT forearm LT w conon 25-69-3880ML forearm LT w con [facility] [place] [address] [place] [address] CT Scan Report Signed Patient: Laura Tyler MR#: [id number] : 1965 Acct:[id number] Age/Sex: 57 / F ADM Date: 03/26/23 Loc: Room: [address] [place] [address] Type: ADM IN Attending Dr: John Kimball MD Copies to: MD Janny Staples DO Ordering Provider: Janny Concepcion DO Date of Service: 03/28/23 CT/CT humerus LT w con: cellulitis ([id number]) CT/CT forearm LT w con: cellulitis CT [...] Braden Rae M.D.03/28/2023 12:19 PM Dictation Location: [place] [address] Transcribed By: [facility] 03/28/23 1219 Dictated By: Braden Rae II, MD 03/28/23 1212 Signed By: 03/28/[address] [facility] Medical CenterComplete Blood Count Auto Diffon 02-50-9030Sunpsqosy (Bld) [#/Vol]0.1 10*3/uLNormal0.0-0.2FTogus VA Medical CenterComment on above:Result Comment: PERFORMED BY: [place] [address] PATHOLOGIST [employer] EQUIPMENT OPERATOR FREDY PRICE M.D.Performed By: #### BMP, CBC #### [facility] [address] [place] [address] USABasophils/100 WBC (Bld)0.4 %Normal.[facility] Reserve HospitalComment on above:Performed By: #### BMP, CBC #### [facility] [address] [place] [address] USAEosinophils (Bld) [#/Vol]0.2 10*3/uLNormal0.0-0.45 [facility] HospitalComment on above:Performed By: #### BMP, CBC #### [facility] [address] [place] [address] USAEosinophils/100 WBC (Bld)1.1 %Normal.[facility] HospitalComment on above:Performed By: #### BMP, CBC #### [facility] [address] [place] [address] USAErythrocyte distribution width (RBC) [Ratio]14.7 %Normal 11.9-15.3FTogus VA Medical CenterComment on above:Performed By: #### BMP, CBC #### [facility] [address] [place] [address] USAHematocrit (Bld) [Volume fraction]36.0 %Tfoqne40.0-46.4 [facility] HospitalComment on above:Performed By: #### BMP, CBC #### [place] [address] USAHemoglobin (Bld) [Mass/Vol]11.6 g/dLLow11.8-15.4FTogus VA Medical CenterComment on above:Performed By: #### BMP, CBC #### [place] [address] USALymphocytes (Bld) [#/Vol]0.9 10*3/uLLow1.00-4.8Western [facility] HospitalComcorewell health reed city hospital on above:Performed By: #### BMP, CBC #### [facility] [address] [place] [id number] USALymphocytes/100 WBC (Bld)4.3 %Normal.[facility] Reserve HospitalComment on above:Performed By: #### BMP, CBC #### [place] [address] USAMCH (RBC) [Entitic mass]27.2 hiFykhro00.7-34.3FTogus VA Medical CenterComment on above:Performed By: #### BMP, CBC #### [place] [address] USAMCV (RBC) [Entitic vol]84.7 gPKpgsuv45-276MvbwmditrWestern Reserve HospitalComment on above:Performed By: #### BMP, CBC #### [facility] [address] [place] [address] USAMean Corpuscular HGB Conc32.2 g/fBEzacwg74.0-35.0[facility] HospitalComment on above:Performed By: #### BMP, CBC #### [place] [address] USAMonocytes (Bld) [#/Vol]1.0 10*3/uLHigh0.0-0.8[facility] HospitalComment on above:Performed By: #### BMP, CBC #### [place] [address] USAMonocytes/100 WBC (Bld)4.7 %Normal.[facility] Reserve HospitalComment on above:Performed By: #### BMP, CBC #### [place] [address] USANeutrophils (Bld) [#/Vol]18.7 10*3/uLHigh1.8-7.7FTogus VA Medical CenterComment on above:Performed By: #### BMP, CBC #### [place] [address] USANeutrophils/100 WBC (Bld)89.5 %Normal.[facility] Reserve HospitalComment on above:Performed By: #### BMP, CBC #### [place] [address] USANRBC%0.0 /100{WBC}Normal0-0.5FTogus VA Medical CenterComment on above:Performed By: #### BMP, CBC #### [place] [address] USAPlatelet mean volume (Bld) [Entitic vol]8.6 fLNormal 6.3-10.7FTogus VA Medical CenterComment on above:Performed By: #### BMP, CBC #### [place] [address] USAPlatelets (Bld) [#/Vol]329 10*3/qGXnndms497-132TrsshojfhWestern Reserve HospitalComment on above:Performed By: #### BMP, CBC #### [facility] [address] [place] [address] USARBC (Bld) [#/Vol]4.25 10*6/uLNormal3.60-5.00Western Reserve HospitalComment on above:Performed By: #### BMP, CBC #### [facility] [address] [place] [address] USAWBC (Bld) [#/Vol]20.8 10*3/uLHigh3.8-11.6FTogus VA Medical CenterComment on above:Performed By: #### BMP, CBC #### [facility] [address] [place] [address] USAECG 12 lead ECGon [id number] 12 lead [facility] [place] [address] [place] [address] Electrocardiograph Report Signed Patient: Laura Tyler MR#: [id number] : 1965 Acct:[id number] Age/Sex: 57 / F ADM Date: 03/26/23 Loc: Room: [address] [place] [address] Type: ADM IN Attending Dr: John Kimball [...] ECG No previous ECGs available Confirmed by IZ LUNA DO ([id number]) on 03/29/2023 11:45:37 AM Referred By: Electronically Signed By:ZI LUNA DO Transcribed By: MUS Signed By Zi Luna DO 03/[address] [place], [place] [address]Erythrocyte Sedimentation Rateon 29-95-4771TNW (Bld) [Velocity]79 mm/hHigh0-29[facility] Comment on above:Result Comment: PERFORMED BY: [address] [place] [address] PATHOLOGIST [employer] E[employer]IPMENT OPERATOR FREDY PRICE M.D.Performed By: #### ESR, CRP #### [place] [address] USAHCG,Quantitativeon 02-45-3290VCI,Quantitative1.38 m[iU]/mL NormalWestern Reserve HospitalComment on above:Result Comment: Approximate Approximate hCG Gestational Age Range (mIU/ml) (weeks) 0.2-1 5-50 1-2 50-500 2-3 100-5,000 3-4 500-10,000 4-5 1,000-50,000 5-6 10,000-100,000 6-8 15,000-200,000 8-12 10,000-100,000 PERFORMED BY: [place] [address] PATHOLOGIST [employer] EQUIPMENT OPERATOR FREDY PRICE M.D.Performed By: #### BMP, CBC #### [place] [address] USABasic Metabolic Panelon 27-95-8579Anosl gap [Moles/Vol] 11.6 mmol/LNormal6.0-15.0Western Reserve HospitalComment on above: Performed By: #### ESR, CRP #### [place] [address] USACalcium [Mass/Vol]8.2 mg/dLLow8.6-10.3FTogus VA Medical CenterComment on above:Performed By: #### ESR, CRP #### [place] [address] USAChloride [Moles/Vol]103 mmol/QNyzuhj53-608AllsgqzpqWestern Reserve HospitalComment on above:Performed By: #### ESR, CRP #### [place] [id number] USACO2 [Moles/Vol]26.5 mmol/LSpnyhy69.0-31.0Western Reserve HospitalComment on above:Performed By: #### ESR, CRP #### [place] [address] USACreatinine [Mass/Vol]0.74 mg/dLNormal0.60-1.20Western Reserve HospitalComment on above:Performed By: #### ESR, CRP #### [place] [address] USACreatinine Clr Calc Rswhxltm73.17NormalWestern Reserve HospitalComment on above:Result Comment: PERFORMED BY: [place] [address] PATHOLOGIST [employer] EQUIPMENT OPERATOR FREDY PRICE M.D.Performed By: #### ESR, CRP #### [place] [address] USAGFR/1.73 sq M.predicted MDRD (S/P/Bld) [Vol rate/Area] mL/min/{1.73_m2}NormalWestern Reserve HospitalComment on above: Performed By: #### ESR, CRP #### [place] [address] USAGlucose [Mass/Vol]98 mg/iYTigdff16-904QahbxwqehWestern Reserve HospitalComment on above:Result Comment: Random Glucose Reference Range is dependent on time and content of last meal. Glucose of more than 200 mg/dL in a nonstressed, ambulatory subject supports the diagnosis of Diabetes Mellitus. ADA recommended reference rangePerformed By: #### ESR, CRP #### [place] [address] USAPotassium [Moles/Vol]3.1 mmol/LLow3.5-5.1FTogus VA Medical CenterComment on above:Performed By: #### ESR, CRP #### [place] [address] USASodium [Moles/Vol]138 mmol/VTtnmoa348-633HasylqvpbWestern Reserve HospitalComment on above:Performed By: #### ESR, CRP #### [facility] [address] [place] [address] USAUrea nitrogen [Mass/Vol]12 mg/dLNormal7-25Western Reserve HospitalComment on above:Performed By: #### ESR, CRP #### [facility] [address] [place] [address] USAComplete Blood Count Auto Diffon 78-85-1165Hftmgsado (Bld) [#/Vol]0.2 10*3/uLNormal0.0-0.2FTogus VA Medical CenterComment on above:Result Comment: PERFORMED BY: [place] [address] PATHOLOGIST [employer] E[employer]IP[employer] OPERATOR FREDY PRICE M.D.Performed By: #### CBC, BMP #### [facility] [address] [place] [address] USABasophils/100 WBC (Bld)0.7 %Normal.Western Reserve HospitalComment on above:Performed By: #### CBC, BMP #### [facility] [address] [place] [address] USAEosinophils (Bld) [#/Vol]0.1 10*3/uLNormal0.0-0.45 Western Reserve HospitalComment on above:Performed By: #### CBC, BMP #### [facility] [address] [place] [address] USAEosinophils/100 WBC (Bld)0.5 %Normal.Western Reserve HospitalComment on above:Performed By: #### CBC, BMP #### [facility] [address] [place] [address] USAErythrocyte distribution width (RBC) [Ratio]14.4 %Normal 11.9-15.3FTogus VA Medical CenterComcorewell health reed city hospital on above:Performed By: #### CBC, BMP #### [facility] [address] [place] [address] USAHematocrit (Bld) [Volume fraction]35.0 %Yvpgdy83.0-46.4 Western Reserve HospitalComment on above:Performed By: #### CBC, BMP #### [facility] [address] [place] [address] USAHemoglobin (Bld) [Mass/Vol]11.1 g/dLLow11.8-15.4FTogus VA Medical CenterComment on above:Performed By: #### CBC, BMP #### [facility] [address] [place] [address] USALymphocytes (Bld) [#/Vol]0.8 10*3/uLLow1.00-4.8Western Reserve HospitalComment on above:Performed By: #### CBC, BMP #### [facility] [address] [place] [address] USALymphocytes/100 WBC (Bld)3.4 %Normal.Western Reserve HospitalComment on above:Performed By: #### CBC, BMP #### [facility] [address] [place] [address] USAMCH (RBC) [Entitic mass]26.8 fcXakqrn21.7-34.3FTogus VA Medical CenterComment on above:Performed By: #### CBC, BMP #### [place] [address] USAMCV (RBC) [Entitic vol]84.3 xZLblgyl24-187WpsltndyaWestern Reserve HospitalComment on above:Performed By: #### CBC, BMP #### [facility] [address] [place] [address] USAMean Corpuscular HGB Conc31.8 g/dLLow32.0-35.0Western Reserve HospitalComment on above:Performed By: #### CBC, BMP #### [facility] [address] [place] [address] USAMonocytes (Bld) [#/Vol]1.1 10*3/uLHigh0.0-0.8Western Reserve HospitalComment on above:Performed By: #### CBC, BMP #### [place] [address] USAMonocytes/100 WBC (Bld)4.8 %Normal.Western Reserve HospitalComment on above:Performed By: #### CBC, BMP #### [facility] [address] [place] [address] USANeutrophils (Bld) [#/Vol]21.6 10*3/uLHigh1.8-7.7FTogus VA Medical CenterComment on above:Performed By: #### CBC, BMP #### [facility] [address] [place] [address] USANeutrophils/100 WBC (Bld)90.6 %Normal.Western Reserve HospitalComment on above:Performed By: #### CBC, BMP #### [place] [address] USANRBC%0.0 /100{WBC}Normal0-0.5FTogus VA Medical CenterComment on above:Performed By: #### CBC, BMP #### [facility] [address] [place] [address] USAPlatelet mean volume (Bld) [Entitic vol]8.5 fLNormal 6.3-10.7FTogus VA Medical CenterComment on above:Performed By: #### CBC, BMP #### [place] [address] USAPlatelets (Bld) [#/Vol]319 10*3/gPYtzgnb154-914MacwzkkyoWestern Reserve HospitalComment on above:Performed By: #### CBC, BMP #### [facility] [address] [place] [address] USARBC (Bld) [#/Vol]4.15 10*6/uLNormal3.60-5.00Western Reserve HospitalComment on above:Performed By: #### CBC, BMP #### [place] [address] USAWBC (Bld) [#/Vol]23.9 10*3/uLHigh3.8-11.6FTogus VA Medical CenterComment on above:Performed By: #### CBC, BMP #### [address] [place] [address] USABasic Metabolic Panelon 29-98-1280Hxlcw gap [Moles/Vol] 11.4 mmol/LNormal6.0-15.0Western Reserve HospitalComment on above: Performed By: #### ESR, CRP #### [place] [address] USACalcium [Mass/Vol]8.2 mg/dLLow8.6-10.3FTogus VA Medical CenterComment on above:Performed By: #### ESR, CRP #### [place] [address] USAChloride [Moles/Vol]106 mmol/FOyzzjx86-693PnibynadtWestern Reserve HospitalComment on above:Performed By: #### ESR, CRP #### [place] [address] USACO2 [Moles/Vol]24.9 mmol/KYzyzto75.0-31.0Western Reserve HospitalComment on above:Performed By: #### ESR, CRP #### [place] [address] USACreatinine [Mass/Vol]0.77 mg/dLNormal0.60-1.20Western Reserve HospitalComment on above:Performed By: #### ESR, CRP #### [place] [address] USACreatinine Clr Calc Kktjleda25.65NormalWestern Reserve HospitalComment on above:Result Comment: PERFORMED BY: [place] [address] PATHOLOGIST [employer] EQUIPMENT OPERATOR FREDY PRICE M.D.Performed By: #### ESR, CRP #### [place] [address] USAGFR/1.73 sq M.predicted MDRD (S/P/Bld) [Vol rate/Area] mL/min/{1.73_m2}NormalWestern Reserve HospitalComment on above: Performed By: #### ESR, CRP #### [address] [place] [address] USAGlucose [Mass/Vol]83 mg/xRBkxzjl95-887UdytuqvwbWestern Reserve HospitalComment on above:Result Comment: Random Glucose Reference Range is dependent on time and content of last meal. Glucose of more than 200 mg/dL in a nonstressed, ambulatory subject supports the diagnosis of Diabetes Mellitus. ADA recommended reference rangePerformed By: #### ESR, CRP #### [place] [address] USAPotassium [Moles/Vol]3.3 mmol/LLow3.5-5.1FTogus VA Medical CenterComment on above:Performed By: #### ESR, CRP #### [place] [address] USASodium [Moles/Vol]139 mmol/NUtfuzk612-760YrquxgqlcWestern Reserve HospitalComment on above:Performed By: #### ESR, CRP #### [place] [address] USAUrea nitrogen [Mass/Vol]20 mg/dLNormal7-25Western Reserve HospitalComment on above:Performed By: #### ESR, CRP #### [place] [address] USAC-Reactive Proteinon 21-12-2438U-Reactive Cegbyxz70.9 mg/dLHigh0.0-0.5FTogus VA Medical CenterComment on above:Result Comment: PERFORMED BY: [place] [address] PATHOLOGIST [employer] EQUIPMENT OPERATOR FREDY PRICE M.D.Performed By: #### CRP, ESR #### [place] [address] USACBC AUTO DIFFon 47-02-4033Ppunojpye/100 WBC (Bld)0.2 % Normal.The CentervilleComment on above:Performed By: #### SEDR #### [facility] [address] [place] [address] [address] Virgil PurdyPerformed By: #### ESR, CRP #### [address] [place] [address] USAErythrocyte distribution width (RBC) [Ratio]14.5 %Normal 11.9-15.3The CentervilleComment on above:Performed By: #### SEDR #### [facility] [address] [place] [address] Dr. Virgil PurdyPerformed By: #### ESR, CRP #### [facility] [address] [place] [address] USABASO #0.0 103/ulNormal0.0-0.1The Bendersville HospitalComment on above:Performed By: #### SEDR #### [facility] [address] [place] [address] Dr. Virgil Sage #0.1 103/ulNormal0.0-0.7The [facility]ervilleComment on above: Performed By: #### SEDR #### [facility] [address] [place] [address] Dr. Virgil Garzaosinophils/100 WBC (Bld)0.3 %Critically low0.9-7.0Access Hospital DaytonComment on above:Performed By: #### SEDR #### [facility] [address] [place] [address] Dr. Virgil PurdyHematocrit (Bld) [Volume fraction]31.0 %Critically low36.0-48.0 The CentervilleComment on above:Performed By: #### SEDR #### [facility] [address] [place] [address] Dr. Virgil PurdyHemoglobin (Bld) [Mass/Vol]10.2 g/dLCritically low12.0-16.0The CentervilleComment on above:Performed By: #### SEDR #### [facility] [address] [place] [address] Dr. Virgil Dykes #0.42 10e3/ulCritically high0.00-0.03The [place] Comment on above:Performed By: #### SEDR #### [facility] [address] [place] [address] Dr. Virgil Dykes %2.4 %Critically high0.0-0.5The CentervilleComment on above:Performed By: #### SEDR #### [facility] [address] [place] [address] Dr. Virgil Golden #0.9 103/ulCritically low1.2-3.8ThC[facility] Comment on above:Performed By: #### SEDR #### [facility] [address] [place] [address] Dr. Virgil Tabareshocytes/100 WBC (Bld)5.0 %Critically low20.5-60.0The CentervilleComment on above:Performed By: #### SEDR #### [facility] [address] [place] [address] Dr. Virgil Womack DIFF REQNONormalThe CentervilleComment on above: Performed By: #### SEDR #### [facility] [address] [place] [address] Dr. Virgil Taylor (RBC) [Entitic mass]27.9 gwQowyvf24.7-34.0The CentervilleComment on above:Performed By: #### SEDR #### [facility] [address] [place] [address] Dr. Virgil Samuel (RBC) [Mass/Vol]32.9 g/jZYbulkq37.9-35.2The CentervilleComment on above:Performed By: #### SEDR #### [facility] [address] [place] [address] Dr. Virgil Pereira (RBC) [Entitic vol]84.9 uVEppatz01.0-99.0The CentervilleComment on above:Performed By: #### SEDR #### [facility] [address] [place] [address] Dr. Virgil [place] #1.1 103/ulCritically high0.3-0.8The [place] Comment on above:Performed By: #### SEDR #### [facility] [address] [place] [address] Dr. Virgil Pickensocytes/100 WBC (Bld)6.4 %Normal1.7-12.0The [place] Comment on above:Performed By: #### SEDR #### [facility] [address] [place] [address] Dr. Virgil Martin #15.1 103/ulCritically high1.4-6.5The [place] Comment on above:Performed By: #### SEDR #### [facility] [address] [place] [address] Dr. Virgil Hernandezutrophils/100 WBC (Bld)85.7 %Critically high43.0-75.0The CentervilleComment on above:Performed By: #### SEDR #### [facility] [address] [place] [address] Dr. Virgil PurdyPlatelet mean volume (Bld) [Entitic vol]11.2 fLNormal9.5-13.5The CentervilleComment on above:Performed By: #### SEDR #### [facility] [address] [place] [address] Dr. Virgil PurdyPLT244 103/yiGkiuvh913-409Omb CentervilleComment on above: Performed By: #### SEDR #### [facility] [address] [place] [address] Dr. Virgil PurdyRBC3.65 106/ulCritically low4.20-5.40The CentervilleComment on above:Performed By: #### SEDR #### [facility] [address] [place] [address] Dr. Virgil PurdyWBC17.7 103/ulCritically high4.0-11.0The CentervilleComment on above:Performed By: #### SEDR #### [facility] [address] [place] [address] Dr. Virgil Chinchilla 83-19-3457SLC33.8 mg/dLCritically high<=1.0The CentervilleComment on above:Performed By: #### PT #### [facility] [address] [place], [place] [address] Dr. Virgil PurdyComplete Blood Count Auto Diffon 55-73-3639Euvjhubau (Bld) [#/Vol]0.0 10*3/uLNormal0.0-0.2FTogus VA Medical CenterComment on above:Result Comment: PERFORMED BY: [facility] [address] [place] [address] PATHOLOGIST [employer] E[employer] OPERATOR FREDY PRICE M.D.Performed By: #### ESR, CRP #### [facility] [address] [place] [address] USAEosinophils (Bld) [#/Vol]0.1 10*3/uLNormal0.0-0.45 [facility] HospitalComment on above:Performed By: #### ESR, CRP #### [facility] [address] [place] [address] USAEosinophils/100 WBC (Bld)0.5 %Normal.[facility] Reserve HospitalComment on above:Performed By: #### ESR, CRP #### [facility] [address] [place] [address] USAHematocrit (Bld) [Volume fraction]36.2 %Aijlhm61.0-46.4 [facility] HospitalComment on above:Performed By: #### ESR, CRP #### [facility] [address] [place] [address] USAHemoglobin (Bld) [Mass/Vol]11.5 g/dLLow11.8-15.4FTogus VA Medical CenterComment on above:Performed By: #### ESR, CRP #### [facility] [address] [place] [address] USALymphocytes (Bld) [#/Vol]0.9 10*3/uLLow1.00-4.8Western Reserve HospitalComment on above:Performed By: #### ESR, CRP #### [facility] [address] [place] [address] USALymphocytes/100 WBC (Bld)4.2 %Normal.Western Reserve HospitalComment on above:Performed By: #### ESR, CRP #### [facility] [address] (RBC) [Entitic mass]27.0 ofCgvytn18.7-34.3FTogus VA Medical CenterComment on above:Performed By: #### ESR, CRP #### [facility] [address] [place] [address] USAV (RBC) [Entitic vol]85.2 gOMoouxl54-801AromfxvpeWestern Reserve HospitalComment on above:Performed By: #### ESR, CRP #### [facility] [address] [place] [address] USAMean Corpuscular HGB Conc31.7 g/dLLow32.0-35.0Western Reserve HospitalComment on above:Performed By: #### ESR, CRP #### [facility] [address] [place] [address] USAMonocytes (Bld) [#/Vol]1.0 10*3/uLHigh0.0-0.8Western Reserve HospitalComment on above:Performed By: #### ESR, CRP #### [facility] [address] [place] [address] USAMonocytes/100 WBC (Bld)4.7 %Normal.Western Reserve HospitalComment on above:Performed By: #### ESR, CRP #### [facility] [address] [place] [address] USANeutrophils (Bld) [#/Vol]18.6 10*3/uLHigh1.8-7.7FTogus VA Medical CenterComment on above:Performed By: #### ESR, CRP #### [facility] [address] [place] [address] USANeutrophils/100 WBC (Bld)90.4 %Normal.Western Reserve HospitalComment on above:Performed By: #### ESR, CRP #### [place] [address] USANRBC%0.1 /100{WBC}Normal0-0.5FTogus VA Medical CenterComment on above:Performed By: #### ESR, CRP #### [place] [address] USAPlatelet mean volume (Bld) [Entitic vol]8.7 fLNormal 6.3-10.7FTogus VA Medical CenterComment on above:Performed By: #### ESR, CRP #### [place] [address] USAPlatelets (Bld) [#/Vol]282 10*3/zAHanuwg076-628YebirekpkWestern Reserve HospitalComment on above:Performed By: #### ESR, CRP #### [place] [address] USARBC (Bld) [#/Vol]4.25 10*6/uLNormal3.60-5.00Western [facility] HospitalComment on above:Performed By: #### ESR, CRP #### [place] [address] USAWBC (Bld) [#/Vol]20.6 10*3/uLHigh3.8-11.6FTogus VA Medical CenterComment on above:Performed By: #### ESR, CRP #### [place] [address] USAErythrocyte Sedimentation Rateon 64-14-1800DND (Bld) [Velocity]84 mm/hHigh0-29Western Reserve HospitalComment on above: Result Comment: PERFORMED BY: [place] [address] PATHOLOGIST [employer] E[employer]IPMENT OPERATOR FREDY PRICE M.D.Performed By: #### CRP, ESR #### [place] [address] USALactic Acidon 23-03-5471Mfrfslp [Moles/Vol]1.8 mmol/L Normal0.5-2.2FTogus VA Medical CenterComment on above:Result Comment: PERFORMED BY: [place] [address] PATHOLOGIST [employer] E[employer]IPMENT OPERATOR FREDY PRICE M.D.Performed By: #### ESR, CRP #### [facility] [address] [place] [address] USAOCC BLD IMMUNO SCREENon 36-80-8799PZFOMY BLOODNegative NormalNEGATIVEThe CentervilleComment on above:Performed By: #### SEDR #### [facility] [address] [place] [address] [address] Virgil PurdyPROF 14(COMP METB)on 27-02-0840Dghuvlo [Mass/Vol]1.6 g/dL Critically low3.4-5.0The CentervilleComment on above:Performed By: #### PT #### [facility] [address] [place] [address] Dr. Virgil PurdyAlbumin/Globulin [Mass ratio]0.4 {ratio}NormalThe CentervilleComment on above:Performed By: #### PT #### [facility] [address] [place] [address] Dr. Virgil Garcia [Catalytic activity/Vol]76 U/DYuzgcv85-884Rwo CentervilleComment on above:Performed By: #### PT #### [facility] [address] [place] [address] Dr. Virgil Spring [Catalytic activity/Vol]14 U/DBmslst94-84Akz CentervilleComment on above:Performed By: #### PT #### [facility] [address] [place] [address] Dr. Virgil Almanza gap [Moles/Vol]12.6 mmol/LNormalThe [place] Comment on above:Performed By: #### PT #### [facility] [address] [place] [address] Dr. Virgil Billingsley [Catalytic activity/Vol]20 U/IFpspjd61-49Xhl CentervilleComment on above:Performed By: #### PT #### [facility] [address] [place] [address] Dr. Virgil PurdyBilirubin [Mass/Vol]0.4 mg/dLNormal0.2-1.0[facility] Comment on above:Performed By: #### PT #### [facility] [address] [address] [address] Virgil PurdyCalcium [Mass/Vol]8.1 mg/dLCritically low8.5-10.1The CentervilleComment on above:Performed By: #### PT #### [facility] [address] [address] [address] Virgil PurdyChloride [Moles/Vol]105 mmol/ZUvbede01-093Syi [place] Comment on above:Performed By: #### PT #### [facility] [address] [address] [address] Virgil PurdyCO2 [Moles/Vol]22.9 mmol/LCzohfw49.0-32.0[facility] Comment on above:Performed By: #### PT #### [facility] [address] [place] [address] Dr. Virgil PurdyCreatinine [Mass/Vol]1.14 mg/dLCritically high0.55-1.02The CentervilleComment on above:Performed By: #### PT #### [facility] [address] [place] [address] Dr. Virgil GarzaGFR-AF LYNGTCFC84 mL/min/1.46h7Lfjxkt>=60The [place] Comment on above:Performed By: #### PT #### [facility] [address] [address] [address] Virgil GarzaGFR-NON AF FPCDVIQT78 mL/min/1.39m8Boacamelur low>=60Access Hospital DaytonComment on above:Performed By: #### PT #### [facility] [address] [address] [address] Virgil PurdyGlobulin (S) [Mass/Vol]4.1 g/dLNormalThe CentervilleComment on above:Performed By: #### PT #### [facility] [address] [place] [address] Dr. Virgil PurdyGlucose [Mass/Vol]112 mg/dLCritically ityn58-100Yju CentervilleComment on above:Performed By: #### PT #### [facility] [address] [place] [address] Dr. Virgil PurdyPotassium [Moles/Vol]3.5 mmol/LNormal3.5-5.1The [place] Comment on above:Performed By: #### PT #### [facility] [address] [place] [address] Dr. Virgil PurdyProtein [Mass/Vol]5.7 g/dLCritically low6.4-8.2The CentervilleComment on above:Performed By: #### PT #### [facility] [address] [place] [address] Dr. Virgil Alvesdium [Moles/Vol]137 mmol/KKmitby335-233Uiv [place] Comment on above:Performed By: #### PT #### [facility] [address] [place] [address] Dr. Virgil PurdyUrea nitrogen [Mass/Vol]26.0 mg/dLCritically high7.0-18.0The CentervilleComment on above:Performed By: #### PT #### [facility] [address] [place] [address] Dr. Virgil Langford nitrogen/Creatinine [Mass ratio]22.8 mg/mgNormalThe CentervilleComment on above:Performed By: #### PT #### [facility] [address] [place] [address] Dr. Virgil Rubin HEPARIN MONITORon 39-61-2523qGMC Coag (Bld) [Time]40.4 s Ybwbdz26.5-54.2[facility] Hospital DaytonComment on above:Performed By: #### SEDR #### [facility] [address] [place] [address] Dr. Virgil Mantilla Coag (Bld) [Time]37.9 sCritically low39.5-54.2The CentervilleComment on above:Performed By: #### PT #### [facility] [address] [place] [address] Dr. Virgil PurdySEBelen RATE WESTERGRENon 82-94-8765XWQ QCUB714 mm/hrCritically high <=30The [facility] Systemment on above:Performed By: #### SEDR #### [facility] [address] [place] [address] Dr. Virgil GlasgowC AUTO DIFFon 33-24-2772HSOY #0.1 103/ulNormal0.0-0.1The CentervilleComment on above:Performed By: #### CBC #### [facility] [address] [place] [address] Dr. Virgil PurdyBasophils/100 WBC (Bld)0.3 %Normal0.2-2.0The [place] Comment on above:Performed By: #### CBC #### [facility] [address] [place] [address] Dr. Herman ChangEO #0.0 103/ulNormal0.0-0.7The [facility] Systemment on above: Performed By: #### CBC #### [facility] [address] [place] [address] Dr. Virgil Garzaosinophils/100 WBC (Bld)0.1 %Critically low0.9-7.0The [facility] on above:Performed By: #### CBC #### [facility] [address] [place] [address] Dr. Virgil Garzarythrocyte distribution width (RBC) [Ratio]14.1 %Dxyskj27.0-15.0 [facility] Hospitalment on above:Performed By: #### CBC #### [facility] [address] [place] [address] Dr. Virgil PurdyHematocrit (Bld) [Volume fraction]35.4 %Critically low36.0-48.0 The [facility] Systemment on above:Performed By: #### CBC #### [facility] [address] [place] [address] Dr. Virgil PurdyHemoglobin (Bld) [Mass/Vol]11.5 g/dLCritically low12.0-16.0The [facility] HospitalComment on above:Performed By: #### CBC #### [facility] [address] [address] [address] Virgil Dykes #0.14 10e3/ulCritically high0.00-0.03The [place] Comment on above:Performed By: #### CBC #### [facility] [address] [address] [address] Virgil Dykes %0.7 %Critically high0.0-0.5The CentervilleComment on above:Performed By: #### CBC #### [facility] [address] [place] [address] Dr. Virgil Golden #0.6 103/ulCritically low1.2-3.8The [place] Comment on above:Performed By: #### CBC #### [facility] [address] [place] [address] Dr. Virgil Tabareshocytes/100 WBC (Bld)3.2 %Critically low20.5-60.0[facility] DaytonComment on above:Performed By: #### CBC #### [facility] [address] [place] [address] Dr. Virgil Womack DIFF REQNONormalThe CentervilleComment on above: Performed By: #### CBC #### [facility] [address] [place] [address] Dr. Virgil Samuel (RBC) [Entitic mass]28.3 cwLblzqj61.7-34.0The CentervilleComment on above:Performed By: #### CBC #### [facility] [address] [place] [address] Dr. Virgil Samuel (RBC) [Mass/Vol]32.5 g/rWNszkzd51.9-35.2The CentervilleComment on above:Performed By: #### CBC #### [facility] [address] [place] [address] Dr. Virgil Samuel (RBC) [Entitic vol]87.2 gUKsjwny38.0-99.0The CentervilleComment on above:Performed By: #### CBC #### [facility] [address] [address] [address] Virgil Patterson #1.2 103/ulCritically high0.3-0.8The [place] Comment on above:Performed By: #### CBC #### [facility] [address] [place] [address] Dr. Virgil Pickensocytes/100 WBC (Bld)6.3 %Normal1.7-12.0[facility] Comment on above:Performed By: #### CBC #### [facility] [address] [place] [address] Dr. Virgil Martin #17.5 103/ulCritically high1.4-6.5ThC[facility] Comment on above:Performed By: #### CBC #### [facility] [address] [place] [address] Dr. Virgil Hernandezutrophils/100 WBC (Bld)89.4 %Critically high43.0-75.0The CentervilleComment on above:Performed By: #### CBC #### [facility] [address] [place] [address] Dr. Virgil Olmedo mean volume (Bld) [Entitic vol]11.5 fLNormal9.5-13.5ThCleveland Clinic [facility] Lodi HospitalComment on above:Performed By: #### CBC #### [facility] [address] [place] [address] Dr. Virgil PurdyPLT224 103/ieKmyuxz747-368Uwa CentervilleComment on above: Performed By: #### CBC #### [facility] [address] [place] [address] Dr. Virgil PurdyRBC4.06 106/ulCritically low4.20-5.40The CentervilleComment on above:Performed By: #### CBC #### [facility] [address] [place] [address] Dr. Virgil PurdyWBC19.6 103/ulCritically high4.0-11.0The CentervilleComment on above:Performed By: #### CBC #### [facility] [address] [address] [address] Virgil Francois W MANUAL DIFFon [id number] LYMPH #NormalThe Bendersville HospitalComment on above:Performed By: #### AMBER #### [facility] [address] [address] [address] Virgil PurdyATYPICAL LYMPH %NormalThe Bendersville HospitalComment on above: Performed By: #### AMBER #### [facility] [address] [place] [address] Dr. Virgil Lopez #Normal0.0-0.3The CentervilleComment on above: Performed By: #### AMBER #### [facility] [address] [place] [address] Dr. Virgil Lopez %Normal0-5The CentervilleComment on above:Performed By: #### AMBER #### [facility] [address] [place] [address] Dr. Virgil Haque #0.00 103/ulNormal0.00-0.10The CentervilleComment on above:Performed By: #### AMBER #### [facility] [address] [place] [address] Dr. Virgil Haque %0.0 %Critically low0.2-2.0The CentervilleComment on above:Performed By: #### AMBER #### [facility] [address] [place] [address] Dr. Virgil Wiseman #NormalPremier Health [facility] HospitalComment on above:Performed By: #### AMBER #### [facility] [address] [place] [address] Dr. Virgil Wiseman %NormalAccess Hospital DaytonComment on above:Performed By: #### AMBER #### [facility] [address] [place] [address] Dr. Virgil PurdyCORRECTED WBCNormal4.0-11.0The [facility]ville HospitalComment on above: Performed By: #### CBCDARIUS #### [facility] [address] [address] [address] Virgil Arteaga #0.00 103/ulNormal0.00-0.70The CentervilleComment on above:Performed By: #### AMBER #### [facility] [address] [address] [address] Virgil Arteaga%0.0 %Critically low0.9-7.0The CentervilleComment on above:Performed By: #### CBCDARIUS #### [facility] [address] [address] [address] Virgil PurdyHCT33.7 %Critically low36.0-48.0The CentervilleComment on above:Performed By: #### AMBER #### [facility] [address] [place] [address] Dr. Virgil PurdyHGB11.0 g/dlCritically low12.0-16.0The CentervilleComment on above:Performed By: #### AMBER #### [facility] [address] [place] [address] Dr. Virgil Walker #1.10 103/ulCritically low1.20-3.80The [facility] on above:Performed By: #### AMBER #### [facility] [address] [place] [address] Dr. Virgil Walker%6.0 %Critically low20.5-60.0The [facility] Systemment on above:Performed By: #### CBCDARIUS #### [facility] [address] [place] [address] Dr. Virgil PurdyMCH27.8 zoOcejxl20.7-34.0The CentervilleComment on above: Performed By: #### CBCDARIUS #### [facility] [address] [address] [address] Virgil SamuelHC32.6 g/nyGfjitw31.9-35.2The CentervilleComment on above:Performed By: #### CBCDARIUS #### [facility] [address] [address] [address] Virgil SamuelV85.1 tFPdugpk75.0-99.0The CentervilleComment on above: Performed By: #### AMBER #### [facility] [address] [address] [address] Virgil RudolphOCYTE #NormalPremier Health [facility] HospitalComment on above: Performed By: #### AMBER #### [facility] [address] [address] [address] Virgil RudolphOCYTE %NormalAccess Hospital DaytonComment on above: Performed By: #### AMBER #### [facility] [address] [place] [address] Dr. Virgil Figueroa#0.73 103/ulNormal0.30-0.80The CentervilleComment on above:Performed By: #### AMBER #### [facility] [address] [place] [address] Dr. Virgil Figueroa%4.0 %Normal1.7-12.0The CentervilleComment on above: Performed By: #### AMBER #### [facility] [address] [place] [address] Dr. Virgil LindoV11.1 fLNormal9.5-13.5The CentervilleComment on above: Performed By: #### AMBER #### [facility] [address] [place] [address] Dr. Virgil Parish #NormalAccess Hospital DaytonComment on above:Performed By: #### AMBER #### [facility] [address] [place] [address] Dr. Virgil AdenOCYTE %NormalAccess Hospital DaytonComment on above:Performed By: #### AMBER #### [facility] [address] [place] [address] Dr. Virgil BenavidesNormalThe CentervilleComment on above:Performed By: #### AMBER #### [facility] [address] [place] [address] Dr. Virgil BrownT230 103/loGjogyb810-179Yzw CentervilleComment on above: Performed By: #### AMBER #### [facility] [address] [place] [address] Dr. Virgil PurdyRBC3.96 106/ulCritically low4.20-5.40The CentervilleComment on above:Performed By: #### AMBER #### [facility] [address] [place] [address] Dr. Virgil PurdyRDW14.0 %Allkgb70.0-15.0The CentervilleComment on above: Performed By: #### AMBER #### [facility] [address] [place] [address] Dr. Virgil Albert #16.47 103/ulCritically high1.40-6.50[facility] Comment on above:Performed By: #### AMBER #### [facility] [address] [place] [address] Dr. Virgil Albert %90.0 %Critically high43.0-75.0The CentervilleComment on above:Result Comment: vacuoles seenPerformed By: #### AMBER #### [facility] [address] [place] [address] Dr. Virgil SandovalBC18.3 103/ulCritically high4.0-11.0The CentervilleComment on above:Performed By: #### AMBER #### [facility] [address] [place] [address] Dr. Virgil Chinchilla [id number] [Mass/Vol]mg/LCritically high<=1.0The CentervilleComment on above:Performed By: #### SEDR #### [facility] [address] [place] [address] Dr. Virgil Mo BLOODon 86-45-6923Qdphbnxbyed examination of blood, cultureCulture Observations: NO GROWTH AT 5 DAYS.NormalThe CentervilleComment on above:Performed By: #### LACT #### [facility] [address] [place], [place] [address] Dr. Herman ChangMicroscopic examination of blood, cultureCulture Observations: NO GROWTH AT 5 DAYS.NormalThe CentervilleComment on above:Performed By: #### LACT #### [facility] [address] [place], [place] [address] Dr. Herman ChangECHOCARDIO M/2D COMPLETEon [id number] M/2D COMPLETE Patient Name Site Name LAURA TYLER [facility] No Medical Record Number Age Sex Date Time [id number] F 03/25/2023 11:25 At the Request [...] Manuel M.D. on 03/25/2023 at 18:19[facility] 14(COMP METB)on [id number] [Mass/Vol]1.9 g/dLCritically low 3.4-5.0The CentervilleComment on above:Performed By: #### SEDR #### [facility] [address] [place] [address] Dr. Virgil PurdyAlbumin/Globulin [Mass ratio]0.4 {ratio}NormalThe CentervilleComment on above:Performed By: #### SEDR #### [facility] [address] [address] [address] Virgil Garcia [Catalytic activity/Vol]77 U/SOjlewq94-867Meo CentervilleComment on above:Performed By: #### SEDR #### [facility] [address] [place] [address] Dr. Virgil Spring [Catalytic activity/Vol]14 U/IUsvmju92-32Isa CentervilleComment on above:Performed By: #### SEDR #### [facility] [address] [place] [address] Dr. Virgil Almanza gap [Moles/Vol]13.0 mmol/LNormalThe [place] Comment on above:Performed By: #### SEDR #### [facility] [address] [place] [address] Dr. Virgil PurdyAST [Catalytic activity/Vol]11 U/LCritically eym17-68Qrh CentervilleComment on above:Performed By: #### SEDR #### [facility] [address] [place] [address] Dr. Virgil PurdyBilirubin [Mass/Vol]0.5 mg/dLNormal0.2-1.0The [facility] Comment on above:Performed By: #### SEDR #### [facility] [address] [place] [address] Dr. Virgil PurdyCalcium [Mass/Vol]8.7 mg/dLNormal8.5-10.1The [facility] Comment on above:Performed By: #### SEDR #### [facility] [address] [place] [address] Dr. Virgil PurdyChloride [Moles/Vol]100 mmol/LUaksny58-995Xge [facility] Comment on above:Performed By: #### SEDR #### [facility] [address] [address] [address] Virgil PurdyCO2 [Moles/Vol]24.3 mmol/ZHaehwu67.0-32.0The [facility] Comment on above:Performed By: #### SEDR #### [facility] [address] [address] [address] Virgil PurdyCreatinine [Mass/Vol]1.18 mg/dLCritically high0.55-1.02The CentervilleComment on above:Performed By: #### SEDR #### [facility] [address] [place] [address] Dr. Virgil GarzaGFR-AF PQYQEGTT81 mL/min/1.07w7Whnbrxyqya low>=60The CentervilleComment on above:Performed By: #### SEDR #### [facility] [address] [place] [address] Dr. Virgil GarzaGFR-NON AF ZQPOGVRZ41 mL/min/1.81d4Duxoigasbr low>=60The CentervilleComment on above:Performed By: #### SEDR #### [facility] [address] [place] [address] Dr. Virgil PurdyGlobulin (S) [Mass/Vol]4.3 g/dLNormalThe CentervilleComment on above:Performed By: #### SEDR #### [facility] [address] [place] [address] Dr. Virgil PurdyGlucose [Mass/Vol]92 mg/tVCmuzas34-722Yxd [facility] Comment on above:Performed By: #### SEDR #### [facility] [address] [place] [address] Dr. Virgil PurdyPotassium [Moles/Vol]3.3 mmol/LCritically low3.5-5.1The CentervilleComment on above:Performed By: #### SEDR #### [facility] [address] [place] [address] Dr. Virgil PurdyProtein [Mass/Vol]6.2 g/dLCritically low6.4-8.2The CentervilleComment on above:Performed By: #### SEDR #### [facility] [address] [place] [address] Dr. Virgil PurdySodium [Moles/Vol]134 mmol/LCritically vpu800-161Cds CentervilleComment on above:Performed By: #### SEDR #### [facility] [address] [place] [address] Dr. Virgil Langford nitrogen [Mass/Vol]25.0 mg/dLCritically high7.0-18.0The CentervilleComment on above:Performed By: #### SEDR #### [facility] [address] [place] [address] Dr. Virgil Langford nitrogen/Creatinine [Mass ratio]21.2 mg/mgNormalThe CentervilleComment on above:Performed By: #### SEDR #### [facility] [address] [place] [address] Dr. Virgil PurdyPROTIMEon [id number] Coag (PPP) [Relative time]0.96 {INR} NormalThe CentervilleComcorewell health [facility] on above:Performed By: #### PT #### [facility] [address] [place] [address] Dr. Virgil Linder GUIDELINESSEE BELOWWayne HospitalComment on above:Result Comment: DESIRED INR: 2.0 - 3.0 CONDITIONS NOT LISTED BELOW 2.5 - 3.5 FOR PROSTHETIC HEART VALVE REPLACEMENT 2.5 - 3.5 RECURRENT THROMBOSIS Performed By: #### PT #### [facility] [address] [place] [address] Dr. Virgil PurdyPT Coag (PPP) [Time]10.2 sNormal9.0-11.6The [facility] Comment on above:Performed By: #### PT #### [facility] [address] [place] [address] Dr. Virgil Rubin HEPARIN MONITORon [id number] Coag (Bld) [Time]38.5 s Critically low39.5-54.2The CentervilleComment on above:Performed By: #### PT #### [facility] [address] [place] [address] Dr. Virgil Moise (d) [Time]41.3 iGtsslj36.5-54.2[facility] Comment on above:Performed By: #### LACT #### [facility] [address] [place] [address] Dr. Virgil Moise (Bld) [Time]41.0 lKmmnpo76.5-54.2[facility] Comment on above:Performed By: #### PTTHEP #### [facility] [address] [place] [address] Dr. Virgil Baxter RATE WESTERGRENon [id number] RATE82 mm/hrCritically high <=30The CentervilleComment on above:Performed By: #### SEDR #### [facility] [address] [place] [address] Dr. Virgil Davison EXT NON VASC LIMITED LTon [id number] EXT NON VASC LIMITED LT EXAMINATION: US [...] Electronically authenticated by: AC LOVING Date: 2023-03-25 10:20[facility] W MANUAL DIFFon [id number] LYMPH #NormalThe CentervilleComment on above:Performed By: #### SEDR #### [facility] [address] [place] [address] Dr. Virgil StilesYPICAL LYMPH %NormalThe [facility]ervilleComment on above: Performed By: #### SEDR #### [facility] [address] [place] [address] Dr. Virgil Lopez #1.6 103/ulCritically high0.0-0.3The [facility] Comment on above:Performed By: #### SEDR #### [facility] [address] [place] [address] Dr. Virgil Lopez %8 %Critically high0-5The [facility] HospitalComment on above: Performed By: #### SEDR #### [facility] [address] [place] [address] Dr. Virgil Haque #0.00 103/ulNormal0.00-0.10The [facility] HospitalComment on above:Performed By: #### SEDR #### [facility] [address] [place] [address] Dr. Virgil Haque %0.0 %Critically low0.2-2.0The [facility]ervilleComment on above:Performed By: #### SEDR #### [facility] [address] [place] [address] Dr. Virgil Wiseman #NormalThe [facility] HospitalComment on above:Performed By: #### SEDR #### [facility] [address] [place] [address] Dr. Virgil Wiseman %NormalAccess Hospital DaytonComment on above:Performed By: #### SEDR #### [facility] [address] [place] [address] Dr. Virgil PurdyCORRECTED WBCNormal4.0-11.0The CentervilleComment on above: Performed By: #### SEDR #### [facility] [address] [place] [address] Dr. Virgil Arteaga #0.19 103/ulNormal0.00-0.70The [facility] HospitalComment on above:Performed By: #### SEDR #### [facility] [address] [place] [address] Dr. Virgil Arteaga%1.0 %Normal0.9-7.0The [facility]ervilleComment on above: Performed By: #### SEDR #### [facility] [address] [place] [address] Dr. Virgil DorantesT43.4 %Ofcvyo16.0-48.0The CentervilleComment on above: Performed By: #### SEDR #### [facility] [address] [place] [address] Dr. Virgil PurdyHGB14.5 g/epQwtufb00.0-16.0The [facility]ervilleComment on above: Performed By: #### SEDR #### [facility] [address] [place] [address] Dr. Virgil Walker #1.36 103/ulNormal1.20-3.80The [facility]ervilleComment on above:Performed By: #### SEDR #### [facility] [address] [place] [address] Dr. Virgil Walker%7.0 %Critically low20.5-60.0The [facility]ervilleComment on above:Performed By: #### SEDR #### [facility] [address] [place] [address] Dr. Virgil SamuelH28.0 kdZwymjf21.7-34.0The [facility]ervilleComment on above: Performed By: #### SEDR #### [facility] [address] [place] [address] Dr. Virgil SamuelHC33.4 g/haZkcndz60.9-35.2The CentervilleComcorewell health [facility] hospital on above:Performed By: #### SEDR #### [facility] [address] [place] [address] Dr. Virgil SamuelV83.9 iRCoucly96.0-99.0The CentervilleComment on above: Performed By: #### SEDR #### [facility] [address] [place] [address] Dr. Virgil RudolphOCYTE #NormalThe CentervilleComcorewell health [facility] on above: Performed By: #### SEDR #### [facility] [address] [place] [address] Dr. Virgil RudolphOCYTE %NormalAccess Hospital DaytonComment on above: Performed By: #### SEDR #### [facility] [address] [address] [address] Virgil Figueroa#0.58 103/ulNormal0.30-0.80The [facility]ervilleComment on above:Performed By: #### SEDR #### [facility] [address] [address] [address] Virgil Figueroa%3.0 %Normal1.7-12.0The [facility] HospitalComment on above: Performed By: #### SEDR #### [facility] [address] [place] [address] Dr. Virgil LindoV11.1 fLNormal9.5-13.5The [facility]ervilleComment on above: Performed By: #### SEDR #### [facility] [address] [place] [address] Dr. Virgil AdenOCYTE #NormalThe [facility]ervilleComment on above:Performed By: #### SEDR #### [facility] [address] [place] [address] Dr. Virgil AdenOCYTE %NormalThe CentervilleComcorewell health [facility] hospital on above:Performed By: #### SEDR #### [facility] [address] [place] [address] Dr. Virgil PurdyNRBCNormalThe CentervilleComment on above:Performed By: #### SEDR #### [facility] [address] [place] [address] Dr. Virgil PurdyPLT238 103/quRcmfth275-279Amp CentervilleComment on above: Performed By: #### SEDR #### [facility] [address] [place] [address] Dr. Virgil PurdyRBC5.17 106/ulNormal4.20-5.40The CentervilleComment on above:Performed By: #### SEDR #### [facility] [address] [place] [address] Dr. Virgil PurdyRDW13.7 %Rxnste86.0-15.0The CentervilleComment on above: Performed By: #### SEDR #### [facility] [address] [place] [address] Dr. Virgil Albert #15.71 103/ulCritically high1.40-6.50The [facility] Comment on above:Performed By: #### SEDR #### [facility] [address] [place] [address] Dr. Virgil Albert %81.0 %Critically high43.0-75.0The [facility]ervilleComment on above:Performed By: #### SEDR #### [facility] [address] [place] [address] Dr. Virgil SandovalBC19.4 103/ulCritically high4.0-11.0The [facility]ervilleComment on above:Performed By: #### SEDR #### [facility] [address] [place] [address] Dr. Virgil Chinchilla 70-92-9325OCR42.6 mg/dLCritically high<=1.0The CentervilleComment on above:Performed By: #### BMP, URIC, CRP #### [facility] [address] [place] [address] Dr. Virgil Mo BLOODon 94-11-1802Hsefntrybdy examination of blood, cultureCulture Observations: NO GROWTH AT 5 DAYS.NormalThe CentervilleComment on above:Performed By: #### LACT #### [facility] [address] [place] [address] Dr. Virgil PurdyMicroscopic examination of blood, cultureCulture Observations: NO GROWTH AT 5 DAYS.NormalThe [facility]ville HospitalComment on above:Performed By: #### LACT #### [facility] [address] [place] [address] Dr. Virgil PurdyLACTATE/LACTIC ACIDon [id number] [Moles/Vol]1.4 mmol/L Normal0.4-2.0The CentervilleComment on above:Performed By: #### LACT #### [facility] [address] [address] [address] Virgil AlbarranI ARM LT WO CONon [id number] ARM LT WO CONEXAM: MRI ARM LT [...] Electronically authenticated by: LEE RODRÍGUEZ Date: 2023-03-24 17:45Way[facility] HospitalPROF CHEM 8 (BAS METB)on [id number] gap [Moles/Vol]16.0 mmol/LNormalThe CentervilleComment on above:Performed By: #### BMP, URIC, CRP #### [facility] [address] [address] [address] Virgil PurdyCalcium [Mass/Vol]10.4 mg/dLCritically high8.5-10.1The [facility]ervilleComment on above:Performed By: #### BMP, URIC, CRP #### [facility] [address] [address] [address] Virgil PurdyChloride [Moles/Vol]97 mmol/LCritically uwu52-316Mal Chayo HospitalComment on above:Performed By: #### BMP, URIC, CRP #### [facility] [address] [place] [address] Dr. Virgil PurdyCO2 [Moles/Vol]26.7 mmol/PMkgfcp28.0-32.0The [facility] Comment on above:Performed By: #### BMP, URIC, CRP #### [facility] [address] [place] [address] Dr. Virgil PurdyCreatinine [Mass/Vol]1.36 mg/dLCritically high0.55-1.02The [facility]ervilleComment on above:Performed By: #### BMP, URIC, CRP #### [facility] [address] [place] [address] Dr. Virgil GarzaGFR-AF JBMPUUAU37 mL/min/1.73g9Nniftfchqj low>=60The CentervilleComment on above:Performed By: #### BMP, URIC, CRP #### [facility] [address] [place] [address] Dr. Virgil Parnell-NON AF XLYMOLVT50 mL/min/1.92v7Tuowcdotuc low>=60The [facility]ervilleComment on above:Performed By: #### BMP, URIC, CRP #### [facility] [address] [place] [address] Dr. Virgil PurdyGlucose [Mass/Vol]97 mg/oHGtlwnh09-108UgxAccess Hospital [place] Comment on above:Performed By: #### BMP, URIC, CRP #### [facility] [address] [place] [address] Dr. Virgil PurdyPotassium [Moles/Vol]3.7 mmol/LNormal3.5-5.1[facility] Comment on above:Performed By: #### BMP, URIC, CRP #### [facility] [address] [place] [address] Dr. Virgil PurdySodium [Moles/Vol]136 mmol/AKvkijz347-249DzrAccess Hospital [place] Comment on above:Performed By: #### BMP, URIC, CRP #### [facility] [address] [place] [address] Dr. Virgil Langford nitrogen [Mass/Vol]28.0 mg/dLCritically high7.0-18.0The CentervilleComment on above:Performed By: #### BMP, URIC, CRP #### [facility] [address] [place] [address] Dr. Virgil Langford nitrogen/Creatinine [Mass ratio]20.6 mg/mgNormalThe CentervilleComment on above:Performed By: #### BMP, URIC, CRP #### [facility] [address] [place] [address] Dr. Virgil PurdyPTT HEPARIN MONITORon 95-15-1680kUVY Coag (Bld) [Time]36.0 s Critically low39.5-54.2The [facility]ervilleComcorewell [facility] on above:Performed By: #### PT #### [facility] [address] [place] [address] Dr. Virgil PurdySED RATE WESTERGRENon 76-80-6906BEH RATE78 mm/hrCritically high <=30The [facility]ervilleComcorewell [facility] on above:Performed By: #### SEDR #### [facility] [address] [place] [address] Dr. Virgil PurdyURIC ACID SERUMon 37-60-9344Vhjsp [Mass/Vol]4.3 mg/dLNormal 2.6-6.0The [facility]ervilleComcorewell [facility] on above:Performed By: #### BMP, URIC, CRP #### [facility] [address] [place] [address] Dr. Virgil PurdyXR ANKLE HILLARY MIN 3 VIEWSon [id number] ANKLE HILLARY MIN 3 VIEWS EXAMINATION: XR [...] Electronically authenticated by: AC LOVING Date: 2022-08-22 10:41[place] [facility] AUTO DIFFon 16-08-2264WRNA #0.1 103/ulNormal0.0-0.1The CentervilleComment on above:Performed By: #### PT #### [facility] [address] [place] [address] Dr. Virgil PurdyBasophils/100 WBC (Bld)1.1 %Normal0.2-2.0[facility] Comment on above:Performed By: #### PT #### [facility] [address] [place] [address] Dr. Virgil Sage #0.3 103/ulNormal0.0-0.7The CentervilleComment on above: Performed By: #### PT #### [facility] [address] [place] [address] Dr. Virgil Garzaosinophils/100 WBC (Bld)5.2 %Normal0.9-7.0[facility] Comment on above:Performed By: #### PT #### [facility] [address] [place] [address] Dr. Virgil Garzarythrocyte distribution width (RBC) [Ratio]13.3 %Rubepw55.0-15.0 The CentervilleComment on above:Performed By: #### PT #### [facility] [address] [place] [address] Dr. Virgil PurdyHematocrit (Bld) [Volume fraction]44.0 %Klmwto62.0-48.0The CentervilleComment on above:Performed By: #### PT #### [facility] [address] [place] [address] Dr. Virgil PurdyHemoglobin (Bld) [Mass/Vol]13.7 g/pZGespun39.0-16.0The CentervilleComment on above:Performed By: #### PT #### [facility] [address] [place] [address] Dr. Virgil Dykes #0.01 10e3/ulNormal0.00-0.03The CentervilleComment on above:Performed By: #### PT #### [facility] [address] [place] [address] Dr. Virgil Dykes %0.2 %Normal0.0-0.5The CentervilleComment on above: Performed By: #### PT #### [facility] [address] [place] [address] Dr. Virgil FishJuan J #1.5 103/ulNormal1.2-3.8The CentervilleComment on above:Performed By: #### PT #### [facility] [address] [place] [address] Dr. Virgil Tabareshocytes/100 WBC (Bld)26.8 %Dxuzim22.5-60.0The CentervilleComment on above:Performed By: #### PT #### [facility] [address] [place] [address] Dr. Virgil RomanUAL DIFF REQNONormalThe CentervilleComment on above: Performed By: #### PT #### [facility] [address] [place] [address] Dr. Virgil Samuel (RBC) [Entitic mass]28.2 eiXubbip46.7-34.0The CentervilleComment on above:Performed By: #### PT #### [facility] [address] [place] [address] Dr. Virgil Samuel (RBC) [Mass/Vol]31.1 g/dNPewzje33.9-35.2The CentervilleComment on above:Performed By: #### PT #### [facility] [address] [place] [address] Dr. Virgil Samuel (RBC) [Entitic vol]90.7 yOUmcbsl07.0-99.0The CentervilleComment on above:Performed By: #### PT #### [facility] [address] [place] [address] Dr. Virgil Patterson #0.5 103/ulNormal0.3-0.8The CentervilleComment on above:Performed By: #### PT #### [facility] [address] [place] [address] Dr. Virgil Pickensocytes/100 WBC (Bld)8.4 %Normal1.7-12.0[facility] Comment on above:Performed By: #### PT #### [facility] [address] [place] [address] Dr. Virgil Martin #3.3 103/ulNormal1.4-6.5The CentervilleComment on above:Performed By: #### PT #### [facility] [address] [place] [address] Dr. Virgil Hernandezutrophils/100 WBC (Bld)58.3 %Bnfvpg64.0-75.0The CentervilleComment on above:Performed By: #### PT #### [facility] [address] [place] [address] Dr. Virgil Garcialet mean volume (Bld) [Entitic vol]11.4 fLNormal9.5-13.5The CentervilleComment on above:Performed By: #### PT #### [facility] [address] [place] [address] Dr. Virgil PurdyPLT263 103/pcDttnmm778-683Wnt CentervilleComment on above: Performed By: #### PT #### [facility] [address] [place] [address] Dr. Virgil PurdyRBC4.85 106/ulNormal4.20-5.40The CentervilleComment on above:Performed By: #### PT #### [facility] [address] [place] [address] Dr. Virgil PurdyWBC5.6 103/ulNormal4.0-11.0The CentervilleComment on above: Performed By: #### PT #### [facility] [address] [place] [address] Dr. Vrigil PurdyGLYCOHEMOGLOBIN A1Con 44-47-8151FTW RECOMMENDATIONSEE [facility] CenterComcorewell [facility] on above:Result Comment: ADA RECOMMENDED LIMIT 4.0 - 6.0 ADA THERAPEUTIC TARGET < 7.0 ACTION SUGGESTED > 7.0Performed By: #### A1C #### [facility] [address] [place] [address] Dr. Virgil PurdyGlucose [Mass/Vol]123 mg/dLNoWestern Reserve HospitalComcorewell health reed city hospital on above:Performed By: #### A1C #### [facility] [address] [place] [address] Dr. Virgil PurdyHbA1c (Bld) [Mass fraction]5.9 %Normal4.5-6.2[facility] on above:Performed By: #### A1C #### [facility] [address] [place] [address] Dr. Virgil PurdyLIPID PROFILEon 10-10-6849DRYK-HDL RATIO NORMSEE [facility] CantonComcorewell health re[facility] on above:Result Comment: 3.3 - 4.4 LOW RISK 4.4 - 7.1 AVERAGE RISK 7.1 - 11.0 MODERATE RISK >11.0 HIGH RISKPerformed By: #### PT #### [facility] [address] [place] [address] Dr. Virgil PurdyCholesterol [Mass/Vol]240 mg/dLCritically high<=200[facility] on above:Performed By: #### PT #### [facility] [address] [place] [address] Dr. Virgil PurdyCholesterol in HDL [Mass/Vol]70 mg/dLCritically zfnn68-74[facility] on above:Performed By: #### PT #### [facility] [address] [place] [address] Dr. Virgil PurdyCholesterol in LDL [Mass/Vol]150.2 mg/dLUniversity Hospitals Ahuja [facility] on above:Performed By: #### PT #### [facility] [address] [place] [address] Dr. Virgil PurdyCholesterol.total/Cholesterol in HDL [Mass ratio]3.4 {ratio} NormalThe CentervilleComment on above:Performed By: #### PT #### [facility] [address] [place] [address] Dr. Virgil Vasquez NORMAL> or = 60 mg/dl - LOW CARDIOVASCULAR RISK <40 mg/dl - HIGH CARDIOVASCULAR RISKWayne HospitalComment on above:Performed By: #### PT #### [facility] [address] [place] [address] Dr. Virgil PurdyLDL CALC NORMALSEE BELOWWayne HospitalComment on above:Result Comment: <100 mg/dl OPTIMAL 100 - 129 mg/dl NEAR OR ABOVE OPTIMAL 130 - 159 mg/dl BORDERLINE HIGH 160 - 189 mg/dl HIGH >190 mg/dl VERY HIGH Performed By: #### PT #### [facility] [address] [place] [address] Dr. Virgil PurdyTriglyceride [Mass/Vol]99 mg/dLNormal<=150The [facility] Comment on above:Performed By: #### PT #### [facility] [address] [place] [address] Dr. Virgil GuerraLDL CALC19.8 mg/dLNormOhioHealth Mansfield HospitalComment on above: Performed By: #### PT #### [facility] [address] [place] [address] Dr. Virgil Shrestha PROFILEon 80-96-2117Xikysqg [Mass/Vol]3.8 g/dLNormal3.4-5.0 The CentervilleComment on above:Performed By: #### PT #### [facility] [address] [place] [address] Dr. Virgil PurdyAlbumin/Globulin [Mass ratio]1.1 {ratio}NormalThe CentervilleComment on above:Performed By: #### PT #### [facility] [address] [place] [address] Dr. Virgil MaddoxP [Catalytic activity/Vol]86 U/VNhlnzo11-690Wqv [facility] HospitalComment on above:Performed By: #### PT #### [facility] [address] [address] [address] Virgil Spring [Catalytic activity/Vol]21 U/VNsiqyk95-26Goa [facility] Health Systemment on above:Performed By: #### PT #### [facility] [address] [address] [address] Virgil Billingsley [Catalytic activity/Vol]20 U/ZSkhpez25-99Oyl CentervilleComment on above:Performed By: #### PT #### [facility] [address] [address] [address] Virgil LizarragaI, CONJUGATED0.1 mg/dLNormal0.0-0.2[facility] Comment on above:Performed By: #### PT #### [facility] [address] [address] [address] Virgil Lizarragairubin [Mass/Vol]0.2 mg/dLNormal0.2-1.0[facility] Comment on above:Performed By: #### PT #### [facility] [address] [address] [address] Virgil PurdyGlobulin (S) [Mass/Vol]3.5 g/dLNormalThe CentervilleComcorewell health reed city hospital on above:Performed By: #### PT #### [facility] [address] [address] [address] Virgil PurdyProtein [Mass/Vol]7.3 g/dLNormal6.4-8.2[facility] Comment on above:Performed By: #### PT #### [facility] [address] [address] [address] Virgil PurdyPROF CHEM 8 (BAS METB)on 82-01-4876Mymmx gap [Moles/Vol]11.9 mmol/LNormalProMedica Memorial Hospitalment on above:Performed By: #### PT #### [facility] [address] [address] [address] Virgil PurdyCalcium [Mass/Vol]9.0 mg/dLNormal8.5-10.1[facility] Comment on above:Performed By: #### PT #### [facility] [address] [place] [address] Dr. Virgil PurdyChloride [Moles/Vol]105 mmol/ZHjggwu80-641VmrAccess Hospital [facility] Comment on above:Performed By: #### PT #### [facility] [address] [address] [address] Virgil PurdyCO2 [Moles/Vol]25.3 mmol/CFcqlcl65.0-32.0[facility] Comment on above:Performed By: #### PT #### [facility] [address] [place] [address] Dr. Virgil PurdyCreatinine [Mass/Vol]0.90 mg/dLNormal0.55-1.02The CentervilleComment on above:Performed By: #### PT #### [facility] [address] [place] [address] Dr. Virgil GarzaGFR-AF MALTESE>60Normal>=60The CentervilleComment on above:Performed By: #### PT #### [facility] [address] [place] [address] Dr. Virgil GarzaGFR-NON AF MALTESE>60Normal>=60The CentervilleComment on above:Performed By: #### PT #### [facility] [address] [place] [address] Dr. Virgil PurdyGlucose [Mass/Vol]93 mg/rRUgmjxq31-372Fjh [facility] Comment on above:Performed By: #### PT #### [facility] [address] [address] [address] Virgil PurdyPotassium [Moles/Vol]5.2 mmol/LCritically high3.5-5.1The CentervilleComment on above:Performed By: #### PT #### [facility] [address] [place] [address] Dr. Virgil PurdySodium [Moles/Vol]137 mmol/UTzwtsz580-224Mex [facility] Comment on above:Performed By: #### PT #### [facility] [address] [place], [place] [address] Dr. Virgil Langford nitrogen [Mass/Vol]16.0 mg/dLNormal7.0-18.0The CentervilleComment on above:Performed By: #### PT #### [facility] [address] [address] [address] Virgil Langford nitrogen/Creatinine [Mass ratio]17.8 mg/mgNormalThe CentervilleComment on above:Performed By: #### PT #### [facility] [address] [place] [address] Dr. Virgil Sinclair 30-29-7228ZOH33.874 uIU/mLCritically high0.358-3.740The CentervilleComment on above:Performed By: #### PT #### [facility] [address] [address] [address] Virgil Rebolledo Quick Testingon 79-54-1935SjftfxCqtcdaoyCvmdl [facility]ment Other Vital Signs Date TimeVital SignValuePerforming ZadyuluyoMnwdwbom08-82-7175 10:38-0500Body kkyoad775.5 cmAnthony Rusher DPM Work Phone: [facility] CenterRbrqlhzxbv82-03-9454 10:38-0500Body mass index (BMI) [Ratio]29.26 kg/r3Japplvo Rusher DPM Work Phone: [phone] CenterRhpbxpnkug24-81-2408 10:38-0500Body .58 kgAnthony Rusher DPM Work Phone: [phone] CenterUcxcrclmfx18-49-6287 09:30-0400Body uqqpkq065.48 cmJustheriberto Concepcion Other [place] [employer] Other 05-26-2023 09:30-0400Body mass index (BMI) [Ratio] 28.16 kg/o6Qomipg La Other 433.227.9156noLocalist Other 05-26-2023 09:30-0400Body bopyyh96.85 kgJufelicitas Concepcion Other [facility]. Other 11-15-2021 15:15-0500Body ujlobk370.48 cmAmber Ginty Other [facility]. Other 11-15-2021 15:15-0500Body mass index (BMI) [Ratio] 29.63 kg/k9Lkkyt Ginty Other [facility]. Other 11-15-2021 15:15-0500Body zlglstdkfea81.2 [degF]Harper Ginty Other [facility]. Other 11-15-2021 15:15-0500Body zqksih63.48 kgAmber Ginty Other [facility]. Other 11-15-2021 15:15-0284BmG2% (BldA) [Mass fraction]97 % Harper Ginty Other [facility]. Other Encounters Encounter DateEncounter TypeCare ProviderFacilityStart: 09-13-2025 End: 91-19-6328hhtfjqyvioMkkrqqz R NILLFacility: BellevueStart: 09-13-2025 End: 77-92-1473Rgaeqay encounter procedureMichael R NILL [phone]-GrewhGreen Cross Hospital [facility] [place] Start: 96-30-3920ogmzoduxzwKnfwygp NILLFacility: AnupamaevueStart: 05-29-2025 End: 70-17-2386Llduomicv department patient visitNO PCP NO PCPProMedica Mission Valley Medical Centertart: 02-03-2025 End: 35-93-1626xswbtpazfuQSUEPAL S RUSHERNot AvailableStart: 01-06-2025 End: 00-81-5621Lnvqmy outpatient new 45 minutesFior Pinon DPM Work Phone: noms PODIATRYComment on above:Posterior tibial tendinitis of right lower extremity (Primary Dx); Stress fracture of left tibia, initial encounter; Acute right ankle pain; Instability of right ankle joint; Difficulty walkingStart: 01-06-2025 End: 79-28-3355ebqfgwlxveKYMKKHA S RUSHERNot AvailableStart: 07-24-2023 End: 80-26-0135mukhrezoxtNyrfla La Other noLocalist Other Start: 09-48-2358Itrowt follow up visit related to original pxJustin KelleyFPG Divide OrthopedicsStart: 05-06-2023 End: 99-43-4493lgguoudhvuNjimpj A KelleyFacility:White Hospitaltart: 05-01-2023 End: 60-50-0497wbvgmivkgrXjszax La Other noLocalist Other Start: 45-02-8384Wogrks follow up visit related to original pxJustin KelleyFPG Jeanette OrthopedicsStart: 04-17-2023 End: 82-66-8169vgsaxiqbeyGDJZPH KELLEYFacility:D9Iyrww: 78-85-3900Anbocy follow up visit related to original pxJustin KelleyFPG [facility]ide OrthopedicsStart: 04-10-2023 End: 92-82-2192jyemwkmqvtOhjhwl La Other noLocalist Other Start: 07-37-7066Ihuviz follow up visit related to original pxJustin KelleyFPG Divide OrthopedicsStart: 04-07-2023 End: 24-66-0517pszrmfexsfFeobmo A KelleyFacility:[facility] Hospitaltart: 04-06-2023 End: 99-01-8378verzeoltyvCtrlwr Fritz ConcepcionFacility:White Hospitaltart: 03-26-2023 End: 16-47-3488Aycnivxtgg and management of inpatientAnoOlivera Facility:[facility] Hospitaltart: 03-26-2023 End: 06-31-2327Xxedcswlip and management of inpatientDR AMILCAR SMITH .Facility: Start: 08-22-2022 End: 07-35-9746qqiqmugsftEK HUBER Fritz NADERERFacility:Y3Jcbpc: 64-55-3094Putmzfzqw for general adult medical examination without abnormal findingsDR HUBER DEWEY [facility]: 08-19-2022 End: 39-41-1446blnkdiselmNL MARC A NADERERFacility:C9Yamrx: 08-19-2022 End: 78-64-2336Eplmoldug for general adult medical examination without abnormal findingsDR HUBER ARTHURRFacility:W2Ocxpu: 09-30-2021 End: 54-61-3033tcvlgrxtgcPsihv Ginty Other [place] [employer] Other Start: 49-16-7252Jptkpa outpatient visit 15 minutes Harper GintyFPG [facility]ian Procedures DateProcedureProcedure DetailPerforming ClinicianStart: 93-15-2700Bxcul ankle complete minimum 3 viewsAnthony S Kathrin DPM Work Phone: AppendectomyMichael NILL ColonoscopyMichael NILL Extraction of wisdom toothMichael NILL Vaginal hysterectomyMichael NILL Plan of Treatment DateCare ActivityDetailAuthorStart: 02-03-2025 End: 97-86-6963Vfturop encounter ctidbgfyd47/21/2025 10:30 AM EDT Office Visit [facility] [address] [place] [phone] Fior Pinon, DPM [address] [place], [place] [id number] [facility] PODIATRYStart: 40-95-6791Potxrilpr vaccinationInfluenza Vaccine (#1)[facility] HealthcareStart: 31-49-8891Lrweaqxju for malignant neoplasm of breast MammogramNOMS HealthcareStart: 50-89-4467Goqlvgjzj for malignant neoplasm of cervixNOMS HealthcareStart: 45-51-0882Rehxhcwyl for malignant neoplasm of cervix Pap SmearNOMS HealthcareStart: 07-60-0173Iyddhfqpy for malignant neoplasm of colonNOMS Healthcare Immunizations Immunization DateImmunizationNotesCare QlckuujhWulomduz67-24-8017jwfnxmyge virus vaccine, unspecified formulationFior Pinon DPM Work Phone: [facility] CenterGydzdwajsm22-05-7456ZROA-TbY-7 mRNA (qvzccttjelg-uoej-jyenclg) vaccineMichael NILL [phone]-EacxfThe [facility] [place] Comment on above:Result Comment: 2025-08-28: KGX0113-01-1590AOTU-OtX-8 (COVID- 19) mRNA BNT-162b2 vaxMichael NILL [phone]-XloquCommunity Regional Medical Center Comment on above:Result Comment: 2025-08-28: CTE1231-94-5847WANV-UjT-5 (COVID- 19) mRNA BNT-162b2 vaxMichael NILL [phone]-HqdaeGreen Cross Hospital [facility] [place] 56-95-0435ZXHF-CoV-2 (COVID-19) mRNA BNT-162b2 vaxMichael NILL [phone]-TaohiCommunity Regional Medical Center Payers DatePayer CategoryPayerPolicy [id number] [employer] InsuranceUNITED [employer]ALTHCARE Member Subscriber Plan / Payer (Effective 2019- Present) Name: Laura Tyler Relation to Subscriber: Self Name: Laura Tyler Payer ID: [id number] (NAIC) Type: Not on file Address: [address] [id number] 2.0.1.255968.3.57[id number] 2.0.1.173941.3.57[id number] 2.0.1.503029.3.57[id number] 2.0.1.306753.3.57[id number] 2.0.1.383819.3.57[id number] 2..1.952513.3.57[id number] 2.0.1.913359.3.57[id number] 2.840.1.678469.3.57[id number] 2.0.1.636882.3.57[id number] 2.840.1.714158.19 [id number] 2.840.1.1[id number] 2.840.1.1[id number] 2..840.1.016845.3.579.2.531 [id number] 2..840.1.870884.3.579.2.531Worker's [id number] Social History DateTypeDetailFacilityUnknown if ever smokedNometropolitan saint [facility] psychiatric center Aug[facility] Other Start: 13-84-0818Hho Assigned [facility]: 01-06-2025 End: 69-44-0184Ppbayfk smoking status NHISEx-smokerNOMS HealthcareHistory of tobacco useCurrent smokerNOMS HealthcareHistory of tobacco useCigarette Smoker [facility] HealthcareStart: 74-62-0903Rfuzeyrrc beverage intakeCurrent drinker of alcohol (finding)[facility] HealthcareStart: 17-86-9667Gpnezetlv beverage intakeNOTN HealthcareStart: 86-67-0354Ziktxxm CommentPatient quit 2016NOTN HealthcareStart: 83-89-6384Mnxijbd Plnoauw0y a weekNOTN HealthcareStart: 66-68-0167Kri assigned at [facility] hospitalNot on [facility] Medical CenterTobacco smoking statusNeCleveland Clinic [facility] The [facility] Hospitalexual OrientationGreen Cross Hospital General Surgery [place] Start: 43-40-9397XwhAtycnq (finding)[facility] Clinical Notes 09-30-2021 to 09-13-2025 Note Date & BvjqQelxLnuxtlup88-52-9577 NoteGeneral Surgery Office/Clinic Note Chief Complaint consultation [...] Father. Hypercholesterolemia: Father. (more content not included)...[facility] Medical CenterComment on above:Result Comment: Electronically Signed By: MARK UMANZOR, Juvenal Galicia\Date and Time Signed: 09/13/25 14:51 ODD54-86-1418 History of Present illness Narrative* Fior Pinon, [...] Fior Pinon DPM documented in this encounterNOMS Wrkhlajufg01-74-9170 Evaluation note* Encounter Date Diagnosis Assessment Notes [...] obtain x-rays at consider a cortisone injection. [facility] Other 06-16-2023 Evaluation note* Encounter Date Diagnosis [...] 3 months. Short term disability phone? number [phone] [facility] Other 06-02-2023 Evaluation note* Encounter Date Diagnosis [...] for removal of sutures (ICD-10 - Z48.02) [facility]. Other 05-26-2023 Evaluation note* Encounter Date Diagnosis [...] with antibiotics.Call with any questions or concerns. [facility]. Other [id number] NotePROCEDURE: XR FOREARM LT 2 VIEWS, XR [...] Electronically authenticated by: AC LOVING Date: 2023-03-24 11:04[facility]05-09-2023 NotePROCEDURE: XR FOREARM LT 2 VIEWS, XR [...] Electronically authenticated by: AC LOVING Date: 2023-03-24 11:04[facility]11-15-2021 Evaluation note* Encounter Date Diagnosis Assessment Notes [...] Patient care instructions given in writting by [facility][NOTE 3] Care At Home document [facility]. Other Evaluation note* Diagnosis Posterior tibial tendinitis of right lower extremity- Primary Stress fracture of left tibia, initial encounter Acute right ankle pain Instability of right ankle joint Difficulty walking Difficulty in walking documented in this encounter [facility] HealthcareHistory general Narrative - Reported* Type Description Date Medical History Tachycardia Surgical HistoryhysterectomySurgical HistoryappendectomySurgical History colonoscopySurgical HistoryfingerHospitalization Historysee above [facility]. Other History general Narrative - Reported* Type Description Date Medical History Tachycardia Surgical HistoryhysterectomySurgical HistoryappendectomySurgical History colonoscopySurgical HistoryfingerSurgical HistoryI & d left forearm Hospitalization Historysee above [facility]. Other Hospital course Narrative No data available for this section [facility] Discharge instructions No data available for this section [facility] [place] Progress note No data available for this section [facility] [place] Summary Purpose Family History No Family History [...] and content) DATE CREATED AUTHOR 04/24/2023 [facility] DATE CREATED AUTHOR AUTHOR'S ORGANIZ ATION 05/28/2023 [facility] DATE CREATED AUTHOR AUTHOR'S ORGANIZ ATION 02/05/2025 [facility] DATE CREATED AUTHOR AUTHOR'S ORGANIZ ATION 06/02/2025 [facility] DATE CREATED AUTHOR AUTHOR'S ORGANIZ ATION 09/15/2025 [facility] Care Teams (unrecognized sec tion and content) Team MemberRelationshipSpecialtyStart DateEnd Date Huber Dewey MD [address] [place] [id number] PCP - GeneralFamily Xzmftbur44/1/23 FOR RECORDS PERTAINING TO PATIENTS WHO ARE [...] BE BASED ON THE PRIMARY CLINICAL RECORDS. [facility], [facility]. provides no warranty or guarantee of the accuracy or completeness of information in this document.
--- OUTSIDE RECORDS SUMMARY | 2025-10-04 07:34 | XMS_ITS | Clinical Summary ---
Author Organization [facility] Address [address] [place] [address] Care Team Providers Care Headrig Sawyer Name Role Phone Huber Thorne MD Primary Care Provider [phone] Allergies No known active allergies Medications MedicationSigDispense [...] Active Problems ProblemNoted DateDiagnosed DateArthralgia of both xgnuhh6803/28/2024hronic left shoulder pain03/28/2024hronic superficial gastritis without qknubsjl55/13/2024 Dyshidrotic vbujre4703/28/2024dult cqcqicegdszsqw97/13/2024aroxysmal atrial cwiavnomzbxj79/13/2024upture of right tympanic membrane due to otitis media 03/28/2024 Social History Tobacco UseTypesPacks/DayYears UsedDateSmoking Tobacco: FormerCigarettes Tobacco Cessation:Counseling Given: Not Answered Comments:Patient quit 2015 Alcohol UseStandard Drinks/WeekCommentsYes2 (1 standard drink = 0.6 oz pure alcohol)4x a weekCommentsUnknownSex and Gender InformationValueDate RecordedSex Assigned at BirthNot on fileLegal SigJeasjh45/15/2023 7:13 PM EDT Gender IdentityNot on fileSexual OrientationNot on file Last Filed Vital Signs Vital SignReadingTime TakenCommentsBlood Pressure--Pulse--Temperature-- Respiratory Rate--Oxygen Saturation--Inhaled Oxygen Concentration--Vgwqit76.9 kg (154 lb)02/03/2025 10:08 AM XNRZkwyan841.5 cm (5' 2 )02/03/2025 10:08 AM EDTBody Mass Index28.17002/03/2025 10:08 AM EDT Plan of Treatment Not on file Insurance Care Teams Team MemberRelationshipSpecialtyStart DateEnd Date Huber Thorne MD PCP - GeneralFamily Yygrhqcx74/1/23
[2025-10-04 07:48] VITALS: BP 106/70; PULSE 65; TEMP 36.1; O2SAT 97; BMI 26.7
[2025-10-04 09:56] VITALS: BP 100/71; PULSE 77; TEMP 36.3; O2SAT 100
[2025-10-04 10:11] VITALS: BP 90/70; PULSE 80; O2SAT 99
[2025-10-04 10:26] VITALS: BP 112/72; PULSE 78; O2SAT 99
== END 2025-10-04 10:26 | disposition home or self-care (01) ==
LOC: SURGOUT 07:30
PROVIDERS: PCP Family Medicine; Visit Provider Surgery
PROC: (CPT 813; principal; 2025-10-04 08:45)
DX: R19.5 Other fecal abnormalities (principal); K21.9 Gastro-esophageal reflux disease without esophagitis; R10.13 Epigastric pain; K44.9 Diaphragmatic hernia without obstruction or gangrene; K57.30 Diverticulosis of large intestine without perforation or abscess without bleeding; K63.5 Polyp of colon; Z80.0 Family history of malignant neoplasm of digestive organs; E03.9 Hypothyroidism, unspecified; E78.00 Pure hypercholesterolemia, unspecified; I48.0 Paroxysmal atrial fibrillation; Z90.49 Acquired absence of other specified parts of digestive tract; Z90.710 Acquired absence of both cervix and uterus; Z87.891 Personal history of nicotine dependence; J44.9 Chronic obstructive pulmonary disease, unspecified
CPT/HCPCS: 43235; 45385; 88305; J2003; J2371; J2704

== ENCOUNTER 2025-10-10 07:37 | Outpatient (OUT) | payer OTHER, SELFPAY ==
--- OUTSIDE RECORDS SUMMARY | 2025-10-04 19:36 | XMS_ITS | Continuity of Care Document ---
Author Organization [facility] Address [address] [place] [address] Phone Care Team Providers Care Floor Sweeper Name Role Phone Juvenal Crespo MD Attending Provider Care Teams Patient Care Team Team Status: Inactive Member Role/Relationship Status Dates Juvenal Crespo MD FACS Attending Provider Active Start: October 04, 2025 End: October 04, 2025 Chief Complaint and Reason for Visit Chief Complaint Admit Date Unknown October 04, 2025 9:52am Allergies, Adverse Reactions, Alerts Allergen Type Severity Reaction Last Updated Verified Status Comments Penicillins Adverse Reaction Unknown Burning December 17, 2024 1:50pm Yes Active Pt states she had PCN in IV and got painful burning and it had to be infused very slow Social History Smoking Status Status Start Date End Date Date of Observa tion Ex-smoker (finding) September 25, 2024 12:05pm Observation Status Observation Response Date of Response Legal Sex Female (finding) Sex Assigned At BirthFemaleJanuary 1965 Family History Relationship Condition Age at Onset Recorded Date/T jalyn mother Malignant neoplasm of bone Unknown fatherHeart diseaseUnknownsisterMalignant neoplasm of cervixUnknownfatherHeart diseaseUnknownDeceasedUnknownmotherDeceasedUnknownMalignant neoplasmUnknown sisterDeceasedUnknownMalignant neoplasmUnknown Problems Active Problems Problem Diagnosis/Recorded Date Onset Date Status C omments Influenza A December 17, 2024 3:16pm Unknown Active BronchitisFebruary 2024 3:15pmUnknownActiveInactive/Resolved Problems Problem Diagnosis/Recorded Date Onset Date Status C omments Left arm cellulitis March 27, 2023 8:31am Unknown Resol steph Problem List clean-up per request of Phys. EHR Cmte Abscess March 26, 2023 1:15pm Unknown Resolved Pro blem List clean-up per request of Phys. EHR Cmte Cellulitis March 26, 2023 1:15pm Unknown Resolved Pro blem List clean-up per request of Phys. EHR Cmte Leukocytosis March 26, 2023 1:16pm Unknown Resolved P roblem List clean-up per request of Phys. EHR Cmte Medications Medication Status Dose Units Route Directions Qty Days Refills S tart Date Stop Date End Date Reason(s) Instructions Adherence Levothyroxine 100 mcg tablet Active 100 MCG PO Mony ly at 0630 March 25, 2023 11:00pmUnknownOmeprazole 40 mg capsule,delayed release(DR/EC) Scvrcv90SAHLMtcdqTlk 2022 11:00pmUnknownCelecoxib 200 mg capsule Xmwwkqqfqbgx640XPNJLmrmdOgq 2022 11:00pmMay 2022 1:59pmMultivitamin HixvdzVidhlrrbytoe9JLOLWZhrgoMwc 10th, 2023 11:00pmNovember 2023 12:02pm Linezolid 600 mg tgavqjQaoctdyiymbn941FUYKWdgpk tpnda76034Jyc 2022 11:00pm September 25, 2024 12:03pmPenicillin V Potassium 500 mg ejnkjuJbsrkkqxipkc611DS RGO4D24198Ruv 2022 11:00pmJune 2022 5:04amOxycodone 5 mg Tablet Onjqytoflpbn4ULVEUstyd 6 hours as needed for Moderate Lnmo9299Snt 2022September 25, 2024 12:03pmCellulitis of left upper extremity Cellulitis of left upper limbAcetaminophen 325 mg WyhageFrduslntqait229NULGUpzxw 6 hours as needed for Pain Scale 1 - 3 or lxwil343Rbj 2022 11:00pmMay 2022 2:00pmCyclobenzaprine 10 mg bboxauJbjlzrclegks47MOEXB5K453Oyj 2022 11:00pmMay 2022 1:59pmAcetaminophen 325 mg ruqqzqYpgovi053PRKTFhqgt 6 hours as needed for PainMay 2022 2:00pmUnknownCelecoxib 200 mg capsule Lxpzheqihnyo398PXXCNjuky dailySeptember 25, 2024 12:00amFebruary 2024 1:50pmAmoxicillin-Pot Clavulanate 875-125 mg msmzliDmrhucoydazl6MXKMSYwczx daily 2023 12:00amFebruary 2024 1:50pm Biuloasjgrounuc-Fb-Jvofhhlzmsu (Capmist Dm) 60-15-400 mg yacftqTehdnt9XZGYWJ6D as needed for cold ouxiuaha2289Yigbmqkw2023 12:00amdo not exceed 4 doses per 24 hrsUnknownIbuprofen 800 mg tabletActiveMGPOFebruary 2024 12:00am UnknownMethylprednisolone (Medrol (Leo)) 4 mg tablets,dose ugnoPxeqrp8GSlmp package elwpleupwf328Ebewnllo 2024 12:00amPO PER PKG DIR for 6 daysUnknown Albuterol Sulfate 90 mcg/actuation HFA aerosol jzoichkKabxbb2ZRLMYNESXGETXYGYEOZ 4-6 HOURS as needed for shortness of breath or wheezing8.50Feuary 2024 12:00amUnknown Advance Directives Advance Directive Response Recorded Date/ Time Advance Directives No October 21, 2017 10:13am Insurance Providers Guarantor Gela Burnhamr Address [address] [address] [address] Info.Home Phone: Payer Group Member ID Coverage Type Subscriber Relationship to Subscriber Effective Date Expiration Date Valarie SCHMID Id: [id number] K Spindler Id: [id number] [address] [facility] [address] Home Phone: [employer] Id: [id number] K Bear Id: [id number] [address] [facility] [facility] [address] [address] Home Phone: self Encounters Encounter Location(s) Arrival/Admit Date Discharge/Departure Date Discharge/Departure Disposition Provider(s) Departed Referred -[facility] [place] October 04, 2025 9:52am October 04, 2025 9:53am Discharged to home care or self care (routine discharge) Juvenal Crespo MD FACS
--- OUTSIDE RECORDS SUMMARY | 2025-10-10 07:40 | XMS_ITS | CCD ---
Author Organization [facility] Care Team Providers Care Php Consultant Name Role Phone Harper Shin Unavailable LUIS [...] Unavailable Huber Dewey MD Primary Care Provider [phone] FIOR PINON Attending Unavailable FIOR PINON Referring Unavailable FIOR PINON Attending Unavailable NO PCP, NO PCP Primary Care Unavailable DAV PAL Attending Unavailable Amilcar Smith Primary Care Physician Juvenal FLORES Attending Unavailable Allergies Allergy ClassificationReported Allergen(s)Allergy TypeDate of OnsetReaction(s) Facility (1 source)PenicillinsDrug allergy (disorder)[id number]l Memorial Hospital Repository (1 source)No Known Medication Allergies; 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: [No Known Medication Allergies]Propensity to adverse reactions (disorder)[facility] Repository Medications Current Medications MedicationDrug Class(es)DatesSig (Normalized)Sig (Original)acetaminophen 500 mg oral tablet (4 sources)Start: 17-36-1663gbie 2 tablets by mouth every eight hours Acetaminophen 500 MG 2 tablets Orally Every 8 hours for 30 days March, Activecelecoxib 200 mg oral capsule (3 sources)Nonsteroidal Anti-inflammatory DrugStart: 81-60-1729mcce 1 capsule by mouth twice dailyCeleBREX 200 mg Cap 200 mg = 1 cap(s), Oral, BID, Refills(s) 0 Start Date: 08/28/25 Status: OrderedMedication Dispense Status: Completed Total Allowed Fills: 1 Fills Dispensed: 0Start: 85-54-0878oxwd 1 capsule by mouth at bedtimecelecoxib (CeleBREX) 200 MG capsule Indications: Arthralgia of right ankle take 1 capsule by mouth IN THE MORNING and BEFORE BEDTIME 180 capsule 3 04/12/2024 Activecetirizine hydrochloride 10 mg oral tablet (2 sources)Histamine-1 Receptor AntagonistStart: 72-51-2008lnrf 1 tablet by mouth every twenty-four hoursCetirizine HCl 10 MG 1 tablet Orally Once a day for 14 days Sep, Activefluticasone propionate 0.05 mg/actuat metered dose nasal spray (1 source)CorticosteroidStart: 28-40-1482sbgq 1 spray(s) nasal route once daily Flonase Allergy Relief 50 MCG/ACT 1 spray in each nostril Nasally Once a day for 14 day(s) Sep, Activeibuprofen 800 mg oral tablet (2 sources)Nonsteroidal Anti-inflammatory DrugStart: 15-42-0934lipk 1 tablet by mouth three times dailyibuprofen 800 MG tablet Indications: Arthralgia of both ankles take 1 tablet by mouth three times aday if needed 90 tablet 3 05/20/2024 Activelevothyroxine sodium 0.1 mg oral tablet (3 sources)l-ThyroxineStart: 01-96-4758yfzq 1 tablet by mouth once daily levothyroxine 100 mcg (0.1 mg) Tab 100 mcg = 1 tab(s), Oral, Daily, Refills(s) 0 Start Date: 08/28/25 Status: Ordered Medication Dispense Status: Completed Total Allowed Fills: 1 Fills Dispensed: 0Start: 13-72-5718tyyl 1 tablet by mouth once dailylevothyroxine (Synthroid, Levoxyl) 100 MCG tablet Indications: Adult hypothyroidism (CMS/HCC) TAKE 1 TABLET BY MOUTH EVERY DAY 90 tablet 3 08/24/2024 Activelinezolid 600 mg oral tablet (1 source)Oxazolidinone AntibacterialLinezolid 600 MG TAKE 1 TABLET BY MOUTH TWICE DAILY FOR 14 DAYS Oral for 14 Days 12 pills ActivemethylPREDNISolone (2 sources)CorticosteroidStart: 85-61-4120qzvljxZNDDDJSbjtxk (Medrol Dospak) 4 MG tablets Indications: Posterior tibial tendinitis of right lower extremity Take as directed on package. 21 tablet 01/06/2025 ActiveNirmatrelvir&Ritonavir 300/100 (Paxlovid, 300/100,) 20 x 150 MG & 10 x 100MG tablet therapypack (2 sources)Start: 59-99-2207Calbnuyykqqf&Ritonavir 300/100 (Paxlovid, 300/100,) 20 x 150 MG & 10 x 100MG tablet therapypack Indications: COVID Take 1 Dose by mouth See administration instructions 1 each 11/26/2023 Activeomeprazole 40 mg delayed release oral capsule (5 sources)Proton Pump InhibitorStart: 14-04-2873uzgn 1 capsule by mouth once dailyomeprazole 40 mg Cap-DR 40 mg = 1 cap(s), Oral, Daily, Refills(s) 0 Start Date: 08/28/25 Status: Ordered Medication Dispense Status: Completed Total Allowed Fills: 1 Fills Dispensed: 0Start: 35-06-2243nfef 1 capsule by mouth once dailyomeprazole (PriLOSEC) [address] capsule Indications: Chronic GERD TAKE 1 CAPSULE BY MOUTH EVERY DAY 90 capsule 1 12/09/2024 ActiveOmeprazole 40 MG Oral for 30 Days ActiveoxyCODONE hydrochloride 5 mg oral tablet (3 sources)Opioid AgonistStart: 85-99-0226gkvb 1 tablet by mouth every four hours as needed for painoxyCODONE HCl 5 MG 1 tablet Orally every 4 hours, as needed for pain for 7 days HEATHER # [id number] March, ActivePenicillin (2 sources)Penicillin 28 pills Activesimvastatin 20 mg oral tablet (1 source)HMG-CoA Reductase InhibitorStart: 08-46-4197bijw 1 tablet by mouth once daily in the eveningsimvastatin 20 mg Tab 20 mg = 1 tab(s), Oral, qPM, Refills(s) 0 Start Date: 09/13/25 Status: Ordered Medication Dispense Status: Completed Total Allowed Fills: 1 Fills Dispensed: 0 Completed/Discontinued Medications MedicationDrug Class(es)DatesSig (Normalized)Sig (Original)cefTRIAXone (4 sources)Cephalosporin AntibacterialStart: 48-64-9169Mikyukxj 500 mg Oct, 500 mg Problems Active Problems Problem ClassificationProblemDateDocumented DateEpisodic/ChronicAbdominal pain (2 sources)Epigastric pain; 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: [Epigastric pain]Onset: 09-13-2025 EpisodicCardiac dysrhythmias (4 sources)Unspecified atrial fibrillation; 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: [Paroxysmal atrial fibrillation]Onset: 719133-54-1665JllizjxVanlskyi of white blood cells (1 source)Elevated white blood cell count, unspecified; 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: [Elevated white blood cell count, unspecified]Onset: 26-69-5136KlrvfcdKzazgmmkt of lipid metabolism (1 source)Iughjsnqlfvqtklnjsqb59-03-4904LdsvbmqM Codes: Struck by; against (1 source)Walked into wall, initial encounter; 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: [WALKED INTO WALL INITIAL ENCOUNTER]Onset: 70-90-3080MasgiyqeVydgqverke disorders (3 sources)Gastro-esophageal reflux disease without esophagitis; 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: [Gastroesophageal reflux disease]Onset: 02-50-6905QfrijrtCqkia and electrolyte disorders (1 source)Hypokalemia; 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: [HYPOKALEMIA]Onset: 84-15-5295Hxmtdhbs Fracture of lower limb (2 sources)Stress fracture of left tibia; 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: [Stress fracture, left tibia, initial encounter for fracture]81-98-5441YvhwxchjYekimqgnp and duodenitis (2 sources)Chronic superficial gastritis; 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: [Chronic superficial gastritis without bleeding]Onset: 263213-78-7870DasukeoQrfvasfvdq disorders (1 source)Hormone replacement therapy; 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: [HORMONE REPLACEMENT THERAPY]Onset: 43-81-3513FjykpxmyLlcy wounds of extremities (1 source)Laceration without foreign body of left index finger without damage to nail, initial encounter; 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: [Laceration without foreign body of left index finger without damage to nail, initial encounter]Onset: 01-42-7061Vsaulkxn Other aftercare (1 source)Other senior care (current) drug therapy; 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: [OTH LONGTERM CURRENT DRUG THERAPY]Onset: 58-65-1857JmqsjfzyBfobj aftercare (1 source)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; 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: [LONGTERM CURRENT USE OF ASPIRIN]Onset: 33-15-1263XjvajjbbFgsmd aftercare (1 source)Encounter for removal of suturesEpisodicOther connective tissue disease (2 sources)Tendinitis of right posterior tibial tendon; 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: [Posterior tibial tendinitis, right leg]24-24-5811OnaljqteLtlrt gastrointestinal disorders (1 source)Other fecal abnormalitiesOnset: 22-07-6344NhactyrqTaflo injuries and conditions due to external causes (2 sources)Laceration - injuryOnset: 71-51-0967SkgbkotpNhbih nervous system disorders (2 sources)Difficulty walking; 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: [Difficulty in walking, not elsewhere classified]21-97-6951SirnqniEcnao non-traumatic joint disorders (1 source)Stiffness of left elbow, not elsewhere classifiedEpisodicOther non- traumatic joint disorders (1 source)Pain in left kneeEpisodicOther non-traumatic joint disorders (2 sources)Acute ankle pain; 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: [Pain in right ankle and joints of right foot]38-34-1311SwdfgecrZfayc non-traumatic joint disorders (2 sources)Instability of joint of right ankle; 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: [Other instability, right ankle]38-68-5855RnqbvsiaTzvog nutritional; endocrine; and metabolic disorders (1 source)Elrfmlgdfp94-13-0164RazjoknuCfiaq nutritional; endocrine; and metabolic disorders (1 source)Overweight in adulthood with body mass index of 25 or more but less than 9213-46-7588YpnpbjxtPigqr screening for suspected conditions (not mental disorders or infectious disease) (2 sources)Abnormal results of kidney function studies; 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: [Stool DNA-based colorectal cancer screening positive]Onset: EpisodicResidual codes; unclassified (1 source)Family history of malignant neoplasm of bladder; 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: [FAM HX MALIGNANT NEOPLASM BLADDER]Onset: 99-25-0422IfsmehzwMooqohpc codes; unclassified (1 source)Family history of malignant neoplasm of other organs or systems; 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: [FAM HX MALIG NEOPLASM OTH ORGN/SYS]Onset: 30-28-3331Hdpxcqee Residual codes; unclassified (4 sources)Other specified postprocedural statesEpisodicScreening and history of mental health and substance abuse codes (1 source)Personal history of nicotine dependence; 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: [PERSONAL HISTORY OF NICOTINE DEPEND]Onset: 16-16-1094GhvzvoydOtxr and subcutaneous tissue infections (10 sources)Cellulitis of left upper limb; 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: [Cellulitis, unspecified]Onset: 64-56-4020RldwpifiAjbxnnfdlxx injury; contusion (1 source)Contusion of left forearm, initial encounter; 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: [CONTUSION LEFT FOREARM INITIAL ENC]Onset: 17-82-2489DtxcppmsKvevhnf disorders (3 sources)Hypothyroidism; 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: [Hypothyroidism, unspecified]Onset: 383680-09-9506WtffebsHyqlrhrryunp (1 source)Ankylosis, left elbow; 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, left elbow]Onset: 55-86-1487Yycfwjxlfcbo (1 source)Cellulitis of left upper limb; 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: [Cellulitis of left upper limb]Onset: 04-07-2023 Past or Other Problems Problem ClassificationProblemDateDocumented DateEpisodic/ChronicImmunizations and screening for infectious disease (1 source)Contact with and (suspected) exposure to other viral communicable diseasesOnset: 09-30-2021 Resolved: 32-71-7318QqvvazxlOqvcj non-traumatic joint disorders (4 sources)Pain in right ankle and joints of right foot; 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: [PAIN IN RIGHT ANKLE]Onset: 43-49-6190StqxqujdAwwun non-traumatic joint disorders (1 source)Pain in left ankle and joints of left foot; 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: [PAIN IN LEFT ANKLE]Onset: 88-93-5997UvicopjqNagmk non-traumatic joint disorders (2 sources)Bilateral ankle joint pain; 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: [Pain in right ankle and joints of right foot]Onset: 852205-91-1058XdrwzhfvJkizt non-traumatic joint disorders (2 sources)Chronic pain of left upper limb; 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: [Pain in left shoulder]Onset: 708187-40-4395TvgcecreGwfrf skin disorders (2 sources)Vesicular eczema; 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: [Dyshidrosis [pompholyx]]Onset: 385750-22-7969IluawazyBpdwy upper respiratory infections (1 source)Acute upper respiratory infection, unspecifiedOnset: 09-30-2021 Resolved: 67-55-0504UmnlnleuJxbfzt media and related conditions (2 sources)Rupture of right tympanic membrane due to otitis media; 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: [Otitis media, unspecified, right ear]Onset: 342214-68-2886Dmezzvac Results Test NameValueInterpretationReference RangeFacilityAmbulatory Visit Summaryon 04-82-9573Rojyaunzvd Visit SummaryAmbulatory Visit Summary LAURA TYLER :1965 [...] signed up for this yet, please contact [employer] at [phone] to get signed up today. Language Information Language assistance services are available as needed. [facility]XR FINGER [facility] 2ND DIGIT MIN 2 VWS on 69-37-1188HQ FINGER LT 2ND DIGIT MIN 2 VWSXR [...] Mya Robles MD on 05/29/2025 1:56 PMNormalProMedica Ucsf Medical CenterXR Ankle - right 3 Viewson 16-77-2329Maucbum Result: AP, mortise, lateral views are weight-bearing. Diffuse osteopenia. Small enthesophyte at the insertion of the Achilles tendon. Mild radiopacity across the tibia approximately 3 cm above the fused distal tibial physis. Talus appears well seated within the ankle mortise. No fractures or dislocations noted.[facility] HealthcareRadiology Study observation (narrative)[facility]XR elbow LT 2Von 62-04-9812KK elbow LT 2VPROVIDENCE [place] [address] XRay Report Signed Patient: Laura Tyler MR#: [id number] : 1965 Acct:[id number] Age/Sex: 57 / F ADM Date: 05/06/23 Loc: [place] Room: Type: [facility] Attending Dr: Janny Concepcion DO Copies to: Janny Concepcion DO Ordering Provider: Janny Concepcino DO Date of Service: 05/06/23 XR/XR elbow [...] Braden Rae M.D.05/06/2023 10:05 AM Dictation Location: [place] [address] Transcribed By: [facility] 05/06/23 1005 Dictated By: Braden Rae II, MD 05/06/23 1003 Signed By: 05/06/23 1005NoSelect Medical Specialty Hospital - ColumbusCT forearm LT wo conon 53-24-0774YZ forearm LT wo [facility] [place] [address] CT Scan Report Signed Patient: Laura Tyler MR#: [id number] : 1965 Acct:[id number] Age/Sex: 57 / F ADM Date: 04/06/23 Loc: CT Room: Type: REG CLI Attending Dr: Janny Concepcion DO Copies to: Janny Concepcion DO Ordering Provider: Janny Concepcion DO Date of Service: 04/06/23 CT/CT humerus LT wo con: L03.114 ([id number]) CT/CT forearm LT wo con: Left arm [...] Braden Rae M.D.04/06/2023 4:54 PM Dictation Location: [place] [address] Transcribed By: [facility] 04/06/231653 Dictated By: Braden Rae II, MD 04/06/23 164 Signed By: 04/06/231653NormKettering HealthC-Reactive Proteinon 88-19-6849X-Reactive Protein8.3 mg/dLHigh0.0-0.5FRegency Hospital CompanyComment on above:Result Comment: PERFORMED BY: [place] [address] PATHOLOGIST BALANCE BRIDGE INSPECTOR FREDY PRICE M.D.Performed By: #### CRP #### [place] [address] USAComplete Blood Count Auto Diffon 33-93-7073Gdocxzonv (Bld) [#/Vol]0.1 10*3/uLNormal0.0-0.2FRegency Hospital CompanyComment on above:Result Comment: PERFORMED BY: [place] [address] PATHOLOGIST BALANCE BRIDGE INSPECTOR FREDY PRICE M.D.Performed By: #### CBC #### [place] [address] USABasophils/100 WBC (Bld)0.6 %Normal.[facility] HospitalComment on above:Performed By: #### CBC #### [place] [address] USAEosinophils (Bld) [#/Vol]0.3 10*3/uLNormal0.0-0.45 [facility] HospitalComment on above:Performed By: #### CBC #### [place] [address] USAEosinophils/100 WBC (Bld)2.5 %Normal.[facility] HospitalComment on above:Performed By: #### CBC #### [place] [address] USAErythrocyte distribution width (RBC) [Ratio]14.2 %Normal 11.9-15.3FRegency Hospital CompanyComment on above:Performed By: #### CBC #### [place] [address] USAHematocrit (Bld) [Volume fraction]34.0 %Nrtrhm78.0-46.4 [facility] HospitalComment on above:Performed By: #### CBC #### [place] [address] USAHemoglobin (Bld) [Mass/Vol]10.9 g/dLLow11.8-15.4FRegency Hospital CompanyComment on above:Performed By: #### CBC #### [place] [address] USALymphocytes (Bld) [#/Vol]1.0 10*3/uLNormal1.00-4.8 [facility] HospitalComment on above:Performed By: #### CBC #### [facility] [address] [place] [address] USALymphocytes/100 WBC (Bld)8.8 %Normal.[facility] Memorial HospitalComment on above:Performed By: #### CBC #### [facility] [address]H (RBC) [Entitic mass]27.3 klGockpc12.7-34.3FRegency Hospital CompanyComment on above:Performed By: #### CBC #### [facility] [address] [place] [address] USAV (RBC) [Entitic vol]85.4 gNKtvkfq57-305JabumznbaTrumbull Memorial HospitalComment on above:Performed By: #### CBC #### [place] [address] USAMean Corpuscular HGB Conc32.0 g/xLQnzfab96.0-35.0[facility] Memorial HospitalComment on above:Performed By: #### CBC #### [place] [address] USAMonocytes (Bld) [#/Vol]0.3 10*3/uLNormal0.0-0.8[facility] Memorial HospitalComment on above:Performed By: #### CBC #### [place] [address] USAMonocytes/100 WBC (Bld)2.3 %Normal.[facility] Memorial HospitalComment on above:Performed By: #### CBC #### [place] [address] USANeutrophils (Bld) [#/Vol]9.9 10*3/uLHigh1.8-7.7FRegency Hospital CompanyComment on above:Performed By: #### CBC #### [place] [address] USANeutrophils/100 WBC (Bld)85.8 %Normal.[facility] Memorial HospitalComment on above:Performed By: #### CBC #### [facility] [address] [place] [address] USANRBC%0.0 /100{WBC}Normal0-0.5FRegency Hospital CompanyComment on above:Performed By: #### CBC #### [facility] [address] [place] [address] USAPlatelet mean volume (Bld) [Entitic vol]7.5 fLNormal 6.3-10.7FRegency Hospital CompanyComment on above:Performed By: #### CBC #### [place] [address] USAPlatelets (Bld) [#/Vol]476 10*3/yYDief431-041OtrtepgayTrumbull Memorial HospitalComment on above:Performed By: #### CBC #### [facility] [address] [place] [address] USARBC (Bld) [#/Vol]3.98 10*6/uLNormal3.60-5.00[facility] Memorial HospitalComment on above:Performed By: #### CBC #### [place] [address] USAWBC (Bld) [#/Vol]11.5 10*3/uLNormal3.8-11.6FRegency Hospital CompanyComment on above:Performed By: #### CBC #### [place] [address] USABasic Metabolic Panelon 84-80-6897Ueknw gap [Moles/Vol]9.0 mmol/LNormal6.0-15.0[facility] Memorial HospitalComment on above:Performed By: #### BMP #### [place] [address] USACalcium [Mass/Vol]7.7 mg/dLLow8.6-10.3FRegency Hospital CompanyComment on above:Performed By: #### BMP #### [place] [address] [place] [address] USAChloride [Moles/Vol]102 mmol/RSnicnl68-634EocheqlmsTrumbull Memorial HospitalComment on above:Performed By: #### BMP #### [facility] [address] [place] [address] USACO2 [Moles/Vol]30.4 mmol/SQusebm74.0-31.0[facility] Memorial HospitalComment on above:Performed By: #### BMP #### [facility] [address] [place] [address] USACreatinine [Mass/Vol]0.63 mg/dLNormal0.60-1.20[facility] Memorial HospitalComment on above:Performed By: #### BMP #### [facility] [address] [place] [address] USACreatinine Clr Calc Dhqdmvgw844.55NormalTrumbull Memorial HospitalComment on above:Result Comment: PERFORMED BY: [place] [address] PATHOLOGIST BALANCE BRIDGE INSPECTOR FREDY PRICE M.D.Performed By: #### BMP #### [place] [address] USAGFR/1.73 sq M.predicted MDRD (S/P/Bld) [Vol rate/Area] mL/min/{1.73_m2}NormalTrumbull Memorial HospitalComment on above: Performed By: #### BMP #### [facility] [address] [place] [address] USAGlucose [Mass/Vol]85 mg/xPBivzlc36-838QnwubksokTrumbull Memorial HospitalComment on above:Result Comment: Random Glucose Reference Range is dependent on time and content of last meal. Glucose of more than 200 mg/dL in a nonstressed, ambulatory subject supports the diagnosis of Diabetes Mellitus. ADA recommended reference rangePerformed By: #### BMP #### [facility] [address] [place] [address] USAPotassium [Moles/Vol]4.4 mmol/LNormal3.5-5.1FRegency Hospital CompanyComment on above:Performed By: #### BMP #### [facility] [address] [place] [address] USASodium [Moles/Vol]137 mmol/AQszcia629-370KgyxnvgteTrumbull Memorial HospitalComment on above:Performed By: #### BMP #### [facility] [address] [place] [address] USAUrea nitrogen [Mass/Vol]14 mg/dLNormal7-25Tr[facility] Memorial HospitalComment on above:Performed By: #### BMP #### [facility] [address] [place] [address] USAComplete Blood Count Auto Diffon 49-40-9509Uamupyqtb (Bld) [#/Vol]0.0 10*3/uLNormal0.0-0.2FRegency Hospital CompanyComment on above:Result Comment: PERFORMED BY: [place] [address] PATHOLOGIST BALANCE BRIDGE INSPECTOR FREDY PRICE M.D.Performed By: #### ESR, CRP #### [place] [address] USABasophils/100 WBC (Bld)0.4 %Normal.[facility] Memorial HospitalComment on above:Performed By: #### ESR, CRP #### [place] [address] USAEosinophils (Bld) [#/Vol]0.2 10*3/uLNormal0.0-0.45 [facility] HospitalComment on above:Performed By: #### ESR, CRP #### [place] [address] USAEosinophils/100 WBC (Bld)1.4 %Normal.[facility] Memorial HospitalComment on above:Performed By: #### ESR, CRP #### [place] [address] USAErythrocyte distribution width (RBC) [Ratio]14.5 %Normal 11.9-15.3FRegency Hospital CompanyComment on above:Performed By: #### ESR, CRP #### [facility] [address] [place] [address] USAHematocrit (Bld) [Volume fraction]32.7 %Low34.0-46.4 [facility] HospitalComment on above:Performed By: #### ESR, CRP #### [place] [address] USAHemoglobin (Bld) [Mass/Vol]10.6 g/dLLow11.8-15.4FRegency Hospital CompanyComment on above:Performed By: #### ESR, CRP #### [place] [address] USALymphocytes (Bld) [#/Vol]1.0 10*3/uLNormal1.00-4.8 [facility] HospitalComment on above:Performed By: #### ESR, CRP #### [place] [address] USALymphocytes/100 WBC (Bld)8.7 %Normal.[facility] Memorial HospitalComment on above:Performed By: #### ESR, CRP #### [place] [address] USAMCH (RBC) [Entitic mass]27.6 qeLoawol01.7-34.3FRegency Hospital CompanyComment on above:Performed By: #### ESR, CRP #### [place] [address] USAMCV (RBC) [Entitic vol]85.4 vAWbqhsg97-002CaotkhbzkTrumbull Memorial HospitalComment on above:Performed By: #### ESR, CRP #### [place] [address] USAMean Corpuscular HGB Conc32.3 g/rALkbawj09.0-35.0[facility] HospitalCombronson methodist hospital on above:Performed By: #### ESR, CRP #### [place] [address] USAMonocytes (Bld) [#/Vol]0.3 10*3/uLNormal0.0-0.8[facility] HospitalComment on above:Performed By: #### ESR, CRP #### [facility] [address] [place] [address] USAMonocytes/100 WBC (Bld)2.7 %Normal.[facility] Memorial HospitalComment on above:Performed By: #### ESR, CRP #### [facility] [address] [place] [address] USANeutrophils (Bld) [#/Vol]10.4 10*3/uLHigh1.8-7.7FRegency Hospital CompanyComment on above:Performed By: #### ESR, CRP #### [facility] [address] [place] [address] USANeutrophils/100 WBC (Bld)86.8 %Normal.[facility] Memorial HospitalComment on above:Performed By: #### ESR, CRP #### [facility] [address] [place] [address] USANRBC%0.1 /100{WBC}Normal0-0.5FRegency Hospital CompanyComment on above:Performed By: #### ESR, CRP #### [facility] [address] [place] [address] USAPlatelet mean volume (Bld) [Entitic vol]7.6 fLNormal 6.3-10.7FRegency Hospital CompanyComment on above:Performed By: #### ESR, CRP #### [facility] [address] [place] [address] USAPlatelets (Bld) [#/Vol]450 10*3/bQObewki841-300DolbrdbjrTrumbull Memorial HospitalComment on above:Performed By: #### ESR, CRP #### [facility] [address] [place] [address] USARBC (Bld) [#/Vol]3.83 10*6/uLNormal3.60-5.00[facility] HospitalComment on above:Performed By: #### ESR, CRP #### [facility] [address] [place] [address] USAWBC (Bld) [#/Vol]12.0 10*3/uLHigh3.8-11.6FRegency Hospital CompanyComment on above:Performed By: #### ESR, CRP #### [facility] [address] [place] [address] USABasic Metabolic Panelon 74-70-6127Uwaku gap [Moles/Vol] 10.7 mmol/LNormal6.0-15.0[facility] HospitalComment on above: Performed By: #### BMP, CBC #### [place] [address] USACalcium [Mass/Vol]7.7 mg/dLLow8.6-10.3FRegency Hospital CompanyComment on above:Performed By: #### BMP, CBC #### [place] [address] USAChloride [Moles/Vol]101 mmol/QNipbqq68-475AofqsjawzTrumbull Memorial HospitalComment on above:Performed By: #### BMP, CBC #### [place] [address] USACO2 [Moles/Vol]31.2 mmol/LHigh21.0-31.0[facility] Memorial HospitalComment on above:Performed By: #### BMP, CBC #### [place] [address] USACreatinine [Mass/Vol]0.71 mg/dLNormal0.60-1.20[facility] HospitalComment on above:Performed By: #### BMP, CBC #### [place] [address] USACreatinine Clr Calc Kbtieobj16.38NormKettering HealthComment on above:Result Comment: PERFORMED BY: [place] [address] PATHOLOGIST BALANCE BRIDGE INSPECTOR FREDY PRICE M.D.Performed By: #### BMP, CBC #### [place] [address] USAGFR/1.73 sq M.predicted MDRD (S/P/Bld) [Vol rate/Area] mL/min/{1.73_m2}NormalTrumbull Memorial HospitalComment on above: Performed By: #### BMP, CBC #### [facility] [address] [place] [address] USAGlucose [Mass/Vol]84 mg/pSKhvgvl20-282KqqfiqriaTrumbull Memorial HospitalComment on above:Result Comment: Random Glucose Reference Range is dependent on time and content of last meal. Glucose of more than 200 mg/dL in a nonstressed, ambulatory subject supports the diagnosis of Diabetes Mellitus. ADA recommended reference rangePerformed By: #### BMP, CBC #### [place] [address] USAPotassium [Moles/Vol]3.9 mmol/LNormal3.5-5.1FRegency Hospital CompanyComment on above:Performed By: #### BMP, CBC #### [place] [address] USASodium [Moles/Vol]139 mmol/TImqecg172-091AzlmhlumcTrumbull Memorial HospitalComment on above:Performed By: #### BMP, CBC #### [place] [address] USAUrea nitrogen [Mass/Vol]17 mg/dLNormal7-25Trumbull Memorial HospitalComment on above:Performed By: #### BMP, CBC #### [place] [address] USAComplete Blood Count Auto Diffon 68-99-8624Vkzudjryt (Bld) [#/Vol]0.1 10*3/uLNormal0.0-0.2FRegency Hospital CompanyComment on above:Result Comment: PERFORMED BY: [place] [address] PATHOLOGIST BALANCE BRIDGE INSPECTOR FREDY PRICE M.D.Performed By: #### BMP, CBC #### [place] [address] USABasophils/100 WBC (Bld)0.3 %Normal.Tr[facility]ull Memorial HospitalComment on above:Performed By: #### BMP, CBC #### [facility] [address] [place] [address] USAEosinophils (Bld) [#/Vol]0.1 10*3/uLNormal0.0-0.45 [facility] Memorial HospitalComment on above:Performed By: #### BMP, CBC #### [facility] [address] [place] [address] USAEosinophils/100 WBC (Bld)0.9 %Normal.[facility]ull Memorial HospitalComment on above:Performed By: #### BMP, CBC #### [place] [address] USAErythrocyte distribution width (RBC) [Ratio]14.2 %Normal 11.9-15.3FRegency Hospital CompanyComment on above:Performed By: #### BMP, CBC #### [place] [address] USAHematocrit (Bld) [Volume fraction]33.1 %Low34.0-46.4 [facility]ull Memorial HospitalComment on above:Performed By: #### BMP, CBC #### [place] [address] USAHemoglobin (Bld) [Mass/Vol]10.6 g/dLLow11.8-15.4FRegency Hospital CompanyComment on above:Performed By: #### BMP, CBC #### [place] [address] USALymphocytes (Bld) [#/Vol]0.9 10*3/uLLow1.00-4.8Tr[facility]ull Memorial HospitalComment on above:Performed By: #### BMP, CBC #### [place] [address] USALymphocytes/100 WBC (Bld)6.1 %Normal.[facility]ull Memorial HospitalComment on above:Performed By: #### BMP, CBC #### [place] [address] USAMCH (RBC) [Entitic mass]27.3 lnHefbug60.7-34.3FRegency Hospital CompanyComment on above:Performed By: #### BMP, CBC #### [place] [address] USAMCV (RBC) [Entitic vol]85.5 oJKrvimk07-996CtyplzlvuTrumbull Memorial HospitalComment on above:Performed By: #### BMP, CBC #### [place] [address] USAMean Corpuscular HGB Conc31.9 g/dLLow32.0-35.0Tr[facility]ull Memorial HospitalComment on above:Performed By: #### BMP, CBC #### [place] [address] USAMonocytes (Bld) [#/Vol]0.3 10*3/uLNormal0.0-0.8Tr[facility]ull Memorial HospitalComment on above:Performed By: #### BMP, CBC #### [place] [address] USAMonocytes/100 WBC (Bld)2.3 %Normal.[facility]ull Memorial HospitalComment on above:Performed By: #### BMP, CBC #### [place] [address] USANeutrophils (Bld) [#/Vol]13.5 10*3/uLHigh1.8-7.7FRegency Hospital CompanyComment on above:Performed By: #### BMP, CBC #### [place] [address] USANeutrophils/100 WBC (Bld)90.4 %Normal.[facility]ull Memorial HospitalComment on above:Performed By: #### BMP, CBC #### [place] [address] USANRBC%0.0 /100{WBC}Normal0-0.5FRegency Hospital CompanyComment on above:Performed By: #### BMP, CBC #### [facility] [address] [place] [address] USAPlatelet mean volume (Bld) [Entitic vol]7.8 fLNormal 6.3-10.7FRegency Hospital CompanyComment on above:Performed By: #### BMP, CBC #### [facility] [address] [place] [address] USAPlatelets (Bld) [#/Vol]447 10*3/cIUfixnh945-930QljnxczmaTrumbull Memorial HospitalComment on above:Performed By: #### BMP, CBC #### [facility] [address] [place] [address] USARBC (Bld) [#/Vol]3.87 10*6/uLNormal3.60-5.00Tr[facility]ull Memorial HospitalComment on above:Performed By: #### BMP, CBC #### [place] [address] USAWBC (Bld) [#/Vol]14.9 10*3/uLHigh3.8-11.6FRegency Hospital CompanyComment on above:Performed By: #### BMP, CBC #### [facility] [address] [place] [address] USABasic Metabolic Panelon 39-28-7744Wpfzt gap [Moles/Vol]8.2 mmol/LNormal6.0-15.0Tr[facility]ull Memorial HospitalComment on above:Performed By: #### ESR, CRP #### [facility] [address] [place] [address] USACalcium [Mass/Vol]8.1 mg/dLLow8.6-10.3FRegency Hospital CompanyComment on above:Performed By: #### ESR, CRP #### [facility] [address] [place] [address] USAChloride [Moles/Vol]100 mmol/IYrbtdw61-262RfjtbuqacTrumbull Memorial HospitalComment on above:Performed By: #### ESR, CRP #### [facility] [address] [place] [address] USACO2 [Moles/Vol]34.7 mmol/LHigh21.0-31.0Tr[facility]ull Memorial HospitalComment on above:Performed By: #### ESR, CRP #### [facility] [address] [place] [address] USACreatinine [Mass/Vol]0.65 mg/dLNormal0.60-1.20Tr[facility] Memorial HospitalComment on above:Performed By: #### ESR, CRP #### [facility] [address] [place] [address] USACreatinine Clr Calc Rkxrlgsd759.75NormalTrumbull Memorial HospitalComment on above:Performed By: #### ESR, CRP #### [facility] [address] [place] [address] USAGFR/1.73 sq M.predicted MDRD (S/P/Bld) [Vol rate/Area] mL/min/{1.73_m2}[facility] Mercy HospitalComment on above: Performed By: #### ESR, CRP #### [place] [address] USAGlucose [Mass/Vol]120 mg/tMRvha86-508GoopuemihTrumbull Memorial HospitalComment on above:Result Comment: Random Glucose Reference Range is dependent on time and content of last meal. Glucose of more than 200 mg/dL in a nonstressed, ambulatory subject supports the diagnosis of Diabetes Mellitus. ADA recommended reference rangePerformed By: #### ESR, CRP #### [facility] [address] [place] [address] USAPotassium [Moles/Vol]3.9 mmol/LNormal3.5-5.1FRegency Hospital CompanyComment on above:Performed By: #### ESR, CRP #### [facility] [address] [place] [address] USASodium [Moles/Vol]139 mmol/RSokslz711-480CkufcwrceTrumbull Memorial HospitalComment on above:Performed By: #### ESR, CRP #### [facility] [address] [place] [address] USAUrea nitrogen [Mass/Vol]16 mg/dLNormal7-25Tr[facility] Memorial HospitalComment on above:Performed By: #### ESR, CRP #### [place] [address] USAComplete Blood Count Auto Diffon 97-62-3081Tuflxomoa (Bld) [#/Vol]0.1 10*3/uLNormal0.0-0.2FRegency Hospital CompanyComment on above:Result Comment: PERFORMED BY: [place] [address] PATHOLOGIST BALANCE BRIDGE INSPECTOR FREDY PRICE M.D.Performed By: #### ESR, CRP #### [place] [address] USABasophils/100 WBC (Bld)0.4 %Normal.[facility]ull Memorial HospitalComment on above:Performed By: #### ESR, CRP #### [place] [address] USAEosinophils (Bld) [#/Vol]0.0 10*3/uLNormal0.0-0.45 [facility] HospitalComment on above:Performed By: #### ESR, CRP #### [place] [address] USAEosinophils/100 WBC (Bld)0.0 %Normal.[facility]ull Memorial HospitalComment on above:Performed By: #### ESR, CRP #### [place] [address] USAErythrocyte distribution width (RBC) [Ratio]14.2 %Normal 11.9-15.3FRegency Hospital CompanyComment on above:Performed By: #### ESR, CRP #### [place] [address] USAHematocrit (Bld) [Volume fraction]34.8 %Cldyko77.0-46.4 [facility] HospitalComment on above:Performed By: #### ESR, CRP #### [place] [address] USAHemoglobin (Bld) [Mass/Vol]11.1 g/dLLow11.8-15.4FRegency Hospital CompanyComment on above:Performed By: #### ESR, CRP #### [facility] [address] [place] [address] USALymphocytes (Bld) [#/Vol]0.9 10*3/uLLow1.00-4.8Tr[facility] Memorial HospitalComment on above:Performed By: #### ESR, CRP #### [facility] [address] [place] [id number] USALymphocytes/100 WBC (Bld)3.6 %Normal.[facility]ull Memorial HospitalComment on above:Performed By: #### ESR, CRP #### [facility] [address] [place] [address] USAMCH (RBC) [Entitic mass]27.0 iyEdntxq39.7-34.3FRegency Hospital CompanyComment on above:Performed By: #### ESR, CRP #### [facility] [address] [place] [address] USAMCV (RBC) [Entitic vol]84.5 fBNedsfl00-421MtriexcdxTrumbull Memorial HospitalComment on above:Performed By: #### ESR, CRP #### [facility] [address] [place] [address] USAMean Corpuscular HGB Conc32.0 g/pZBghztz14.0-35.0[facility] HospitalComment on above:Performed By: #### ESR, CRP #### [facility] [address] [place] [address] USAMonocytes (Bld) [#/Vol]0.5 10*3/uLNormal0.0-0.8[facility] Memorial HospitalComment on above:Performed By: #### ESR, CRP #### [facility] [address] [place] [address] USAMonocytes/100 WBC (Bld)2.3 %Normal.[facility] Memorial HospitalComment on above:Performed By: #### ESR, CRP #### [facility] [address] [place] [address] USANeutrophils (Bld) [#/Vol]22.4 10*3/uLHigh1.8-7.7FRegency Hospital CompanyComment on above:Performed By: #### ESR, CRP #### [facility] [address] [place] [address] USANeutrophils/100 WBC (Bld)93.7 %Normal.[facility] Memorial HospitalComment on above:Performed By: #### ESR, CRP #### [facility] [address] [place] [address] USANRBC%0.0 /100{WBC}Normal0-0.5FRegency Hospital CompanyComment on above:Performed By: #### ESR, CRP #### [facility] [address] [place] [address] USAPlatelet mean volume (Bld) [Entitic vol]8.1 fLNormal 6.3-10.7FRegency Hospital CompanyComment on above:Performed By: #### ESR, CRP #### [place] [address] USAPlatelets (Bld) [#/Vol]398 10*3/cCOepxvl682-774NmvifpcqxTrumbull Memorial HospitalComment on above:Performed By: #### ESR, CRP #### [facility] [address] [place] [address] USARBC (Bld) [#/Vol]4.12 10*6/uLNormal3.60-5.00[facility] HospitalComment on above:Performed By: #### ESR, CRP #### [place] [address] USAWBC (Bld) [#/Vol]23.9 10*3/uLHigh3.8-11.6FRegency Hospital CompanyComment on above:Performed By: #### ESR, CRP #### [place] [address] USAECG 12 lead ECGon [id number] 12 [facility]PR[facility] [place] [address] [place] [address] Electrocardiograph Report Signed Patient: Laura Tyler MR#: [id number] : 1965 Acct:[id number] Age/Sex: 57 / F ADM Date: 03/26/23 Loc: Room: [address] [place] [address] Type: ADM IN Attending Dr: Arabella Bynum [...] Inferior leads Confirmed by NISHANT ARREAGA MD (Pending sale to [facility]) on 03/30/2023 4:27:00 PM Referred By: Electronically Signed By:NISHANT ARREAGA MD Transcribed By: MUS Signed By Nishant Arreaga MD 0 03/30/23 1627[facility] Mercy HospitalMagnesiumon 03-30-2023 Magnesium [Mass/Vol]1.8 mg/dLLow1.9-2.7FRegency Hospital CompanyComment on above:Result Comment: PERFORMED BY: [place] [id number] PATHOLOGIST BALANCE BRIDGE INSPECTOR FREDY PRICE M.D.Performed By: #### ESR, CRP #### [place] [id number] USAAerobic Cultureon [id number] CultureORGANISM: Streptococcus pyogenes grp A (O:STRPYO) Comments Organism Not Routinely Tested for Susceptibilities Quantity of Growth Light Growth No Anaerobes Isolated 3 Days Gram Stain Result 1+ White Blood Cells Rare Gram Positive Cocci PERFORMED BY: [address] [id number] PATHOLOGIST BALANCE BRIDGE INSPECTOR FREDY PRICE M.D.[facility] Mer[facility] HospitalComment on above: Performed By: #### BMP, CBC #### [facility] [address] [place] [address] USABasic Metabolic Panelon [id number] gap [Moles/Vol]9.8 mmol/LNormal6.0-15.0Tr[facility] Memorial HospitalComment on above:Performed By: #### BMP, CBC #### [facility] [address] [place] [address] USACalcium [Mass/Vol]8.2 mg/dLLow8.6-10.3FRegency Hospital CompanyComment on above:Performed By: #### BMP, CBC #### [facility] [address] [place] [address] USAChloride [Moles/Vol]100 mmol/HFfnysy21-224GacysxxppTrumbull Memorial HospitalComment on above:Performed By: #### BMP, CBC #### [facility] [address] [place] [address] USACO2 [Moles/Vol]31.7 mmol/LHigh21.0-31.0Tr[facility] Memorial HospitalComment on above:Performed By: #### BMP, CBC #### [place] [address] USACreatinine [Mass/Vol]0.60 mg/dLNormal0.60-1.20[facility] HospitalComment on above:Performed By: #### BMP, CBC #### [facility] [address] [place] [address] USACreatinine Clr Calc Dbzytntd048.56NormalTrumbull Memorial HospitalComment on above:Result Comment: PERFORMED BY: [place] [address] PATHOLOGIST BALANCE BRIDGE INSPECTOR FREDY PRICE M.D.Performed By: #### BMP, CBC #### [place] [address] USAGFR/1.73 sq M.predicted MDRD (S/P/Bld) [Vol rate/Area] mL/min/{1.73_m2}[facility] HospitalComment on above: Performed By: #### BMP, CBC #### [facility] [address] [place] [address] USAGlucose [Mass/Vol]92 mg/qVPdiejb91-870LroeyrkpjTrumbull Memorial HospitalComment on above:Result Comment: Random Glucose Reference Range is dependent on time and content of last meal. Glucose of more than 200 mg/dL in a nonstressed, ambulatory subject supports the diagnosis of Diabetes Mellitus. ADA recommended reference rangePerformed By: #### BMP, CBC #### [facility] [address] [place] [address] USAPotassium [Moles/Vol]3.5 mmol/LNormal3.5-5.1FRegency Hospital CompanyComment on above:Performed By: #### BMP, CBC #### [place] [address] USASodium [Moles/Vol]138 mmol/XDhkior430-667PlsldnradTrumbull Memorial HospitalComment on above:Performed By: #### BMP, CBC #### [place] [address] USAUrea nitrogen [Mass/Vol]9 mg/dLNormal7-25Tr[facility] HospitalComment on above:Performed By: #### BMP, CBC #### [place] [address] USAComplete Blood Count Auto Diffon [id number] (Bld) [#/Vol]0.1 10*3/uLNormal0.0-0.2FRegency Hospital CompanyComment on above:Result Comment: PERFORMED BY: [place] [address] PATHOLOGIST BALANCE BRIDGE INSPECTOR FREDY PRICE M.D.Performed By: #### BMP, CBC #### [place] [address] USABasophils/100 WBC (Bld)0.3 %Normal.[facility] Memorial HospitalComment on above:Performed By: #### BMP, CBC #### [place] [address] USAEosinophils (Bld) [#/Vol]0.2 10*3/uLNormal0.0-0.45 [facility] HospitalComment on above:Performed By: #### BMP, CBC #### [facility] [address] [place] [address] USAEosinophils/100 WBC (Bld)1.0 %Normal.[facility] Memorial HospitalComment on above:Performed By: #### BMP, CBC #### [facility] [address] [place] [address] USAErythrocyte distribution width (RBC) [Ratio]14.3 %Normal 11.9-15.3FRegency Hospital CompanyComment on above:Performed By: #### BMP, CBC #### [place] [address] USAHematocrit (Bld) [Volume fraction]35.2 %Yalkda37.0-46.4 [facility] HospitalComment on above:Performed By: #### BMP, CBC #### [facility] [address] [place] [address] USAHemoglobin (Bld) [Mass/Vol]11.4 g/dLLow11.8-15.4FRegency Hospital CompanyComment on above:Performed By: #### BMP, CBC #### [place] [address] USALymphocytes (Bld) [#/Vol]1.0 10*3/uLNormal1.00-4.8 [facility] HospitalCombronson methodist hospital on above:Performed By: #### BMP, CBC #### [facility] [address] [place] [address] USALymphocytes/100 WBC (Bld)4.7 %Normal.[facility] Memorial HospitalComment on above:Performed By: #### BMP, CBC #### [facility] [address] [place] [address] USAMCH (RBC) [Entitic mass]27.3 hfGtsqig48.7-34.3FRegency Hospital CompanyComment on above:Performed By: #### BMP, CBC #### [facility] [address] [place] [address] USAMCV (RBC) [Entitic vol]84.1 mAYnxrcx25-549EufzexkvvTrumbull Memorial HospitalComment on above:Performed By: #### BMP, CBC #### [facility] [address] [place] [address] USAMean Corpuscular HGB Conc32.5 g/yJRwqbaj20.0-35.0[facility] HospitalComment on above:Performed By: #### BMP, CBC #### [facility] [address] [place] [address] USAMonocytes (Bld) [#/Vol]0.8 10*3/uLNormal0.0-0.8[facility] HospitalComment on above:Performed By: #### BMP, CBC #### [facility] [address] [place] [address] USAMonocytes/100 WBC (Bld)3.8 %Normal.[facility] HospitalComment on above:Performed By: #### BMP, CBC #### [facility] [address] [place] [address] USANeutrophils (Bld) [#/Vol]18.4 10*3/uLHigh1.8-7.7FRegency Hospital CompanyComment on above:Performed By: #### BMP, CBC #### [facility] [address] [place] [address] USANeutrophils/100 WBC (Bld)90.2 %Normal.[facility] HospitalComment on above:Performed By: #### BMP, CBC #### [facility] [address] [place] [address] USANRBC%0.0 /100{WBC}Normal0-0.5FRegency Hospital CompanyComment on above:Performed By: #### BMP, CBC #### [facility] [address] [place] [address] USAPlatelet mean volume (Bld) [Entitic vol]8.2 fLNormal 6.3-10.7FRegency Hospital CompanyComment on above:Performed By: #### BMP, CBC #### [facility] [address] [place] [address] USAPlatelets (Bld) [#/Vol]368 10*3/rXBllsjk454-784XfmrolzimTrumbull Memorial HospitalComment on above:Performed By: #### BMP, CBC #### [facility] [address] [place] [address] USARBC (Bld) [#/Vol]4.18 10*6/uLNormal3.60-5.00[facility] HospitalComment on above:Performed By: #### BMP, CBC #### [facility] [address] [place] [address] USAWBC (Bld) [#/Vol]20.4 10*3/uLHigh3.8-11.6FRegency Hospital CompanyComment on above:Performed By: #### BMP, CBC #### [facility] [address] [place] [address] USABasic Metabolic Panelon 36-17-7162Rvwcj gap [Moles/Vol] 10.1 mmol/LNormal6.0-15.0[facility] HospitalComment on above: Performed By: #### BMP, CBC #### [facility] [address] [place] [address] USACalcium [Mass/Vol]8.0 mg/dLLow8.6-10.3FRegency Hospital CompanyComment on above:Performed By: #### BMP, CBC #### [facility] [address] [place] [address] USAChloride [Moles/Vol]101 mmol/GWdjeml94-343ZuwmateykTrumbull Memorial HospitalComment on above:Performed By: #### BMP, CBC #### [facility] [address] [place] [address] USACO2 [Moles/Vol]29.2 mmol/OLdnbkq55.0-31.0[facility] HospitalComment on above:Performed By: #### BMP, CBC #### [facility] [address] [place] [address] USACreatinine [Mass/Vol]0.68 mg/dLNormal0.60-1.20[facility] HospitalComment on above:Performed By: #### BMP, CBC #### [facility] [address] [place] [address] USACreatinine Clr Calc Qimqshvp61.34NormalTrumbull Memorial HospitalComment on above:Result Comment: PERFORMED BY: [facility] [address] [place] [address] PATHOLOGIST BALANCE BRIDGE INSPECTOR FREDY PRICE M.D.Performed By: #### BMP, CBC #### [facility] [address] [place] [address] USAGFR/1.73 sq M.predicted MDRD (S/P/Bld) [Vol rate/Area] mL/min/{1.73_m2}NormalTrumbull Memorial HospitalComment on above: Performed By: #### BMP, CBC #### [place] [address] USAGlucose [Mass/Vol]92 mg/pKSlvjab08-658WtojwnilwTrumbull Memorial HospitalComment on above:Result Comment: Random Glucose Reference Range is dependent on time and content of last meal. Glucose of more than 200 mg/dL in a nonstressed, ambulatory subject supports the diagnosis of Diabetes Mellitus. ADA recommended reference rangePerformed By: #### BMP, CBC #### [place] [address] USAPotassium [Moles/Vol]3.3 mmol/LLow3.5-5.1FRegency Hospital CompanyComment on above:Performed By: #### BMP, CBC #### [facility] [address] [place] [address] USASodium [Moles/Vol]137 mmol/MRgfdjz963-891ZevuhfqbrTrumbull Memorial HospitalComment on above:Performed By: #### BMP, CBC #### [facility] [address] [place] [address] USAUrea nitrogen [Mass/Vol]9 mg/dLNormal7-25[facility] HospitalComment on above:Performed By: #### BMP, CBC #### [place] [address] USABlood Cultureon 27-29-4343Rufujtpy identified Cx Nom (Bld) NO GROWTH 5 DAYS PERFORMED BY: [place] [address] PATHOLOGIST BALANCE BRIDGE INSPECTOR FREDY PRICE M.D.[facility] HospitalComment on above: Performed By: #### BMP, CBC #### [place] [address] USAC-Reactive Proteinon 28-58-3352K-Reactive Jczuuhc78.4 mg/dLHigh0.0-0.5FRegency Hospital CompanyComment on above:Result Comment: PERFORMED BY: [place] [address] PATHOLOGIST BALANCE BRIDGE INSPECTOR FREDY PRICE M.D.Performed By: #### ESR, CRP #### [place] [address] USACT forearm LT w conon [id number] forearm LT w con [facility] [place] [address] [place] [address] CT Scan Report Signed Patient: Laura Tyler MR#: [id number] : 1965 Acct:[id number] Age/Sex: 57 / F ADM Date: 03/26/23 Loc: Room: [address] [place] [address] Type: ADM IN Attending Dr: John Kimball MD Copies to: MD Janny Staples DO Ordering Provider: Janny Concepcion DO Date of Service: 03/28/23 CT/CT humerus LT w con: cellulitis ([id number]) CT/CT forearm LT w con: cellulitis CT [...] Braden Rae M.D.03/28/2023 12:19 PM Dictation Location: [place] [address] Transcribed By: [facility] 03/28/23 1219 Dictated By: Braden Rae II, MD 03/28/23 1212 Signed By: 03/28/23 1219[facility] HospitalComplete Blood Count Auto Diffon [id number] (Bld) [#/Vol]0.1 10*3/uLNormal0.0-0.2FRegency Hospital CompanyComment on above:Result Comment: PERFORMED BY: [place] [address] PATHOLOGIST BALANCE BRIDGE INSPECTOR FREDY PRICE M.D.Performed By: #### BMP, CBC #### [facility] [address] [place] [address] USABasophils/100 WBC (Bld)0.4 %Normal.[facility] HospitalComment on above:Performed By: #### BMP, CBC #### [facility] [address] [place] [address] USAEosinophils (Bld) [#/Vol]0.2 10*3/uLNormal0.0-0.45 [facility] HospitalComment on above:Performed By: #### BMP, CBC #### [facility] [address] [place] [address] USAEosinophils/100 WBC (Bld)1.1 %Normal.[facility] HospitalComment on above:Performed By: #### BMP, CBC #### [facility] [address] [place] [address] USAErythrocyte distribution width (RBC) [Ratio]14.7 %Normal 11.9-15.3FRegency Hospital CompanyComment on above:Performed By: #### BMP, CBC #### [facility] [address] [place] [address] USAHematocrit (Bld) [Volume fraction]36.0 %Hlnamp55.0-46.4 [facility] HospitalComment on above:Performed By: #### BMP, CBC #### [place] [address] USAHemoglobin (Bld) [Mass/Vol]11.6 g/dLLow11.8-15.4FRegency Hospital CompanyComment on above:Performed By: #### BMP, CBC #### [place] [address] USALymphocytes (Bld) [#/Vol]0.9 10*3/uLLow1.00-4.8[facility] HospitalCombronson methodist hospital on above:Performed By: #### BMP, CBC #### [facility] [address] [place] [id number] USALymphocytes/100 WBC (Bld)4.3 %Normal.[facility] HospitalComment on above:Performed By: #### BMP, CBC #### [place] [address] USAMCH (RBC) [Entitic mass]27.2 fbBeryhw49.7-34.3FRegency Hospital CompanyComment on above:Performed By: #### BMP, CBC #### [place] [address] USAMCV (RBC) [Entitic vol]84.7 pNBvdlav17-702YsjtgzbdfTrumbull Memorial HospitalComment on above:Performed By: #### BMP, CBC #### [facility] [address] [place] [address] USAMean Corpuscular HGB Conc32.2 g/wKLqxozz49.0-35.0Tr[facility] HospitalComment on above:Performed By: #### BMP, CBC #### [place] [address] USAMonocytes (Bld) [#/Vol]1.0 10*3/uLHigh0.0-0.8Tr[facility] HospitalComment on above:Performed By: #### BMP, CBC #### [place] [address] USAMonocytes/100 WBC (Bld)4.7 %Normal.[facility] HospitalComment on above:Performed By: #### BMP, CBC #### [place] [address] USANeutrophils (Bld) [#/Vol]18.7 10*3/uLHigh1.8-7.7FRegency Hospital CompanyComment on above:Performed By: #### BMP, CBC #### [place] [address] USANeutrophils/100 WBC (Bld)89.5 %Normal.[facility] HospitalComment on above:Performed By: #### BMP, CBC #### [place] [address] USANRBC%0.0 /100{WBC}Normal0-0.5FRegency Hospital CompanyComment on above:Performed By: #### BMP, CBC #### [place] [address] USAPlatelet mean volume (Bld) [Entitic vol]8.6 fLNormal 6.3-10.7FRegency Hospital CompanyComment on above:Performed By: #### BMP, CBC #### [place] [address] USAPlatelets (Bld) [#/Vol]329 10*3/aCCjoipv423-355UuvyhafulTrumbull Memorial HospitalComment on above:Performed By: #### BMP, CBC #### [facility] [address] [place] [address] USARBC (Bld) [#/Vol]4.25 10*6/uLNormal3.60-5.00Trumbull Memorial HospitalComment on above:Performed By: #### BMP, CBC #### [facility] [address] [place] [address] USAWBC (Bld) [#/Vol]20.8 10*3/uLHigh3.8-11.6FRegency Hospital CompanyComment on above:Performed By: #### BMP, CBC #### [facility] [address] [place] [address] USAECG 12 lead ECGon 83-17-7138KMI 12 lead ECGPROVIDENCE [facility] [place] [address] [place] [address] Electrocardiograph Report Signed Patient: Laura Tyler MR#: [id number] : 1965 Acct:[id number] Age/Sex: 57 / F ADM Date: 03/26/23 Loc: Room: [address] [place] [address] Type: ADM IN Attending Dr: John Kimball [...] MUS Signed By Zi Luna DO 03/[address] [place], [place] [address]Erythrocyte Sedimentation Rateon 64-64-9315ZEZ (Bld) [Velocity]79 mm/hHigh0-29[facility] Comment on above:Result Comment: PERFORMED BY: [address] [place] [address] PATHOLOGIST BALANCE BRIDGE INSPECTOR FREDY PRICE M.D.Performed By: #### ESR, CRP #### [place] [address] USAHCG,Quantitativeon 67-70-3402EGL,Quantitative1.38 m[iU]/mL NormalTrumbull Memorial HospitalComment on above:Result Comment: Approximate Approximate hCG Gestational Age Range (mIU/ml) (weeks) 0.2-1 5-50 1-2 50-500 2-3 100-5,000 3-4 500-10,000 4-5 1,000-50,000 5-6 10,000-100,000 6-8 15,000-200,000 8-12 10,000-100,000 PERFORMED BY: [place] [address] PATHOLOGIST BALANCE BRIDGE INSPECTOR FREDY PRICE M.D.Performed By: #### BMP, CBC #### [place] [address] USABasic Metabolic Panelon 91-82-1356Gjinl gap [Moles/Vol] 11.6 mmol/LNormal6.0-15.0Trumbull Memorial HospitalComment on above: Performed By: #### ESR, CRP #### [place] [address] USACalcium [Mass/Vol]8.2 mg/dLLow8.6-10.3FRegency Hospital CompanyComment on above:Performed By: #### ESR, CRP #### [place] [address] USAChloride [Moles/Vol]103 mmol/HZrritj95-960EtubextkiTrumbull Memorial HospitalComment on above:Performed By: #### ESR, CRP #### [place] [id number] USACO2 [Moles/Vol]26.5 mmol/FUiuuxb26.0-31.0Trumbull Memorial HospitalComment on above:Performed By: #### ESR, CRP #### [place] [address] USACreatinine [Mass/Vol]0.74 mg/dLNormal0.60-1.20Tr[facility]ull Memorial HospitalComment on above:Performed By: #### ESR, CRP #### [place] [address] USACreatinine Clr Calc Xzdaievk75.17NormalTrumbull Memorial HospitalComment on above:Result Comment: PERFORMED BY: [place] [address] PATHOLOGIST BALANCE BRIDGE INSPECTOR FREDY PRICE M.D.Performed By: #### ESR, CRP #### [place] [address] USAGFR/1.73 sq M.predicted MDRD (S/P/Bld) [Vol rate/Area] mL/min/{1.73_m2}NormalTrumbull Memorial HospitalComment on above: Performed By: #### ESR, CRP #### [place] [address] USAGlucose [Mass/Vol]98 mg/qTXuzyxb41-980DfeyynffwTrumbull Memorial HospitalComment on above:Result Comment: Random Glucose Reference Range is dependent on time and content of last meal. Glucose of more than 200 mg/dL in a nonstressed, ambulatory subject supports the diagnosis of Diabetes Mellitus. ADA recommended reference rangePerformed By: #### ESR, CRP #### [place] [address] USAPotassium [Moles/Vol]3.1 mmol/LLow3.5-5.1FRegency Hospital CompanyComment on above:Performed By: #### ESR, CRP #### [place] [address] USASodium [Moles/Vol]138 mmol/GEmruyx522-898XfaryhyoqTrumbull Memorial HospitalComment on above:Performed By: #### ESR, CRP #### [facility] [address] [place] [address] USAUrea nitrogen [Mass/Vol]12 mg/dLNormal7-25Trumbull Memorial HospitalComment on above:Performed By: #### ESR, CRP #### [facility] [address] [place] [address] USAComplete Blood Count Auto Diffon 05-53-2967Gxvkspnrq (Bld) [#/Vol]0.2 10*3/uLNormal0.0-0.2FRegency Hospital CompanyComment on above:Result Comment: PERFORMED BY: [place] [address] PATHOLOGIST BALANCE BRIDGE INSPECTOR FREDY PRICE M.D.Performed By: #### CBC, BMP #### [facility] [address] [place] [address] USABasophils/100 WBC (Bld)0.7 %Normal.Trumbull Memorial HospitalComment on above:Performed By: #### CBC, BMP #### [facility] [address] [place] [address] USAEosinophils (Bld) [#/Vol]0.1 10*3/uLNormal0.0-0.45 [facility]ull Memorial HospitalComment on above:Performed By: #### CBC, BMP #### [facility] [address] [place] [address] USAEosinophils/100 WBC (Bld)0.5 %Normal.Trumbull Memorial HospitalComment on above:Performed By: #### CBC, BMP #### [facility] [address] [place] [address] USAErythrocyte distribution width (RBC) [Ratio]14.4 %Normal 11.9-15.3FRegency Hospital CompanyCombronson methodist hospital on above:Performed By: #### CBC, BMP #### [facility] [address] [place] [address] USAHematocrit (Bld) [Volume fraction]35.0 %Jvbqve27.0-46.4 [facility]ull Memorial HospitalComment on above:Performed By: #### CBC, BMP #### [facility] [address] [place] [address] USAHemoglobin (Bld) [Mass/Vol]11.1 g/dLLow11.8-15.4FRegency Hospital CompanyComment on above:Performed By: #### CBC, BMP #### [facility] [address] [place] [address] USALymphocytes (Bld) [#/Vol]0.8 10*3/uLLow1.00-4.8Trumbull Memorial HospitalComment on above:Performed By: #### CBC, BMP #### [facility] [address] [place] [address] USALymphocytes/100 WBC (Bld)3.4 %Normal.Trumbull Memorial HospitalComment on above:Performed By: #### CBC, BMP #### [facility] [address] [place] [address] USAMCH (RBC) [Entitic mass]26.8 aaTifegx48.7-34.3FRegency Hospital CompanyComment on above:Performed By: #### CBC, BMP #### [place] [address] USAMCV (RBC) [Entitic vol]84.3 zGWxqlzl25-960LrchisbinTrumbull Memorial HospitalComment on above:Performed By: #### CBC, BMP #### [facility] [address] [place] [address] USAMean Corpuscular HGB Conc31.8 g/dLLow32.0-35.0Tr[facility]ull Memorial HospitalComment on above:Performed By: #### CBC, BMP #### [facility] [address] [place] [address] USAMonocytes (Bld) [#/Vol]1.1 10*3/uLHigh0.0-0.8Tr[facility]ull Memorial HospitalComment on above:Performed By: #### CBC, BMP #### [place] [address] USAMonocytes/100 WBC (Bld)4.8 %Normal.Tr[facility]ull Memorial HospitalComment on above:Performed By: #### CBC, BMP #### [facility] [address] [place] [address] USANeutrophils (Bld) [#/Vol]21.6 10*3/uLHigh1.8-7.7FRegency Hospital CompanyComment on above:Performed By: #### CBC, BMP #### [facility] [address] [place] [address] USANeutrophils/100 WBC (Bld)90.6 %Normal.Tr[facility]ull Memorial HospitalComment on above:Performed By: #### CBC, BMP #### [place] [address] USANRBC%0.0 /100{WBC}Normal0-0.5FRegency Hospital CompanyComment on above:Performed By: #### CBC, BMP #### [facility] [address] [place] [address] USAPlatelet mean volume (Bld) [Entitic vol]8.5 fLNormal 6.3-10.7FRegency Hospital CompanyComment on above:Performed By: #### CBC, BMP #### [place] [address] USAPlatelets (Bld) [#/Vol]319 10*3/vOJouvsg566-123BalwimhigTrumbull Memorial HospitalComment on above:Performed By: #### CBC, BMP #### [facility] [address] [place] [address] USARBC (Bld) [#/Vol]4.15 10*6/uLNormal3.60-5.00Tr[facility]ull Memorial HospitalComment on above:Performed By: #### CBC, BMP #### [place] [address] USAWBC (Bld) [#/Vol]23.9 10*3/uLHigh3.8-11.6FRegency Hospital CompanyComment on above:Performed By: #### CBC, BMP #### [address] [place] [address] USABasic Metabolic Panelon 44-91-3945Nypob gap [Moles/Vol] 11.4 mmol/LNormal6.0-15.0Tr[facility]ull Memorial HospitalComment on above: Performed By: #### ESR, CRP #### [place] [address] USACalcium [Mass/Vol]8.2 mg/dLLow8.6-10.3FRegency Hospital CompanyComment on above:Performed By: #### ESR, CRP #### [place] [address] USAChloride [Moles/Vol]106 mmol/PRpyksa85-309IblbistmuTrumbull Memorial HospitalComment on above:Performed By: #### ESR, CRP #### [place] [address] USACO2 [Moles/Vol]24.9 mmol/YBwomdl96.0-31.0Tr[facility] Memorial HospitalComment on above:Performed By: #### ESR, CRP #### [place] [address] USACreatinine [Mass/Vol]0.77 mg/dLNormal0.60-1.20Tr[facility] Memorial HospitalComment on above:Performed By: #### ESR, CRP #### [place] [address] USACreatinine Clr Calc Bbglxymq47.65NormalTrumbull Memorial HospitalComment on above:Result Comment: PERFORMED BY: [place] [address] PATHOLOGIST BALANCE BRIDGE INSPECTOR FREDY PRICE M.D.Performed By: #### ESR, CRP #### [place] [address] USAGFR/1.73 sq M.predicted MDRD (S/P/Bld) [Vol rate/Area] mL/min/{1.73_m2}NormalTrumbull Memorial HospitalComment on above: Performed By: #### ESR, CRP #### [address] [place] [address] USAGlucose [Mass/Vol]83 mg/pHIviktj47-125YttjrcltsTrumbull Memorial HospitalComment on above:Result Comment: Random Glucose Reference Range is dependent on time and content of last meal. Glucose of more than 200 mg/dL in a nonstressed, ambulatory subject supports the diagnosis of Diabetes Mellitus. ADA recommended reference rangePerformed By: #### ESR, CRP #### [place] [address] USAPotassium [Moles/Vol]3.3 mmol/LLow3.5-5.1FRegency Hospital CompanyComment on above:Performed By: #### ESR, CRP #### [place] [address] USASodium [Moles/Vol]139 mmol/FDrxurc223-712QjyydhkvaTrumbull Memorial HospitalComment on above:Performed By: #### ESR, CRP #### [place] [address] USAUrea nitrogen [Mass/Vol]20 mg/dLNormal7-25Tr[facility] Memorial HospitalComment on above:Performed By: #### ESR, CRP #### [place] [address] USAC-Reactive Proteinon 84-43-8917C-Reactive Aqldpfd28.9 mg/dLHigh0.0-0.5FRegency Hospital CompanyComment on above:Result Comment: PERFORMED BY: [place] [address] PATHOLOGIST BALANCE BRIDGE INSPECTOR FREDY PRICE M.D.Performed By: #### CRP, ESR #### [place] [address] USACBC AUTO DIFFon 78-17-8234Bbphvveya/100 WBC (Bld)0.2 % Normal.The [facility] CampusComment on above:Performed By: #### SEDR #### [facility] [address] [place] [address] [address] Virgil PurdyPerformed By: #### ESR, CRP #### [address] [place] [address] USAErythrocyte distribution width (RBC) [Ratio]14.5 %Normal 11.9-15.3The [facility] CampusComment on above:Performed By: #### SEDR #### [facility] [address] [place] [address] Dr. Virgil PurdyPerformed By: #### ESR, CRP #### [facility] [address] [place] [address] USABASO #0.0 103/ulNormal0.0-0.1The Cuba HospitalComment on above:Performed By: #### SEDR #### [facility] [address] [place] [address] Dr. Virgil Sage #0.1 103/ulNormal0.0-0.7The [facility] CampusComment on above: Performed By: #### SEDR #### [facility] [address] [place] [address] Dr. Virgil Garzaosinophils/100 WBC (Bld)0.3 %Critically low0.9-7.0[facility] Montpelier HospitalComment on above:Performed By: #### SEDR #### [facility] [address] [place] [address] Dr. Virgil PurdyHematocrit (Bld) [Volume fraction]31.0 %Critically low36.0-48.0 The [facility] CampusComment on above:Performed By: #### SEDR #### [facility] [address] [place] [address] Dr. Virgil PurdyHemoglobin (Bld) [Mass/Vol]10.2 g/dLCritically low12.0-16.0The [facility] CampusComment on above:Performed By: #### SEDR #### [facility] [address] [place] [address] Dr. Virgil Dykes #0.42 10e3/ulCritically high0.00-0.03The [facility] Comment on above:Performed By: #### SEDR #### [facility] [address] [place] [address] Dr. Virgil Dykes %2.4 %Critically high0.0-0.5The [facility] East CampusComment on above:Performed By: #### SEDR #### [facility] [address] [place] [address] Dr. Virgil Golden #0.9 103/ulCritically low1.2-3.8ThMercy Health Lorain Hospital Comment on above:Performed By: #### SEDR #### [facility] [address] [place] [address] Dr. Virgil Tabareshocytes/100 WBC (Bld)5.0 %Critically low20.5-60.0The [facility] CampusComment on above:Performed By: #### SEDR #### [facility] [address] [place] [address] Dr. Virgil Womack DIFF REQNONormalThe [facility] East CampusComment on above: Performed By: #### SEDR #### [facility] [address] [place] [address] Dr. Virgil Taylor (RBC) [Entitic mass]27.9 khZjgdxs12.7-34.0The [facility] CampusComment on above:Performed By: #### SEDR #### [facility] [address] [place] [address] Dr. Virgil Samuel (RBC) [Mass/Vol]32.9 g/wXHtctak73.9-35.2The [facility] CampusComment on above:Performed By: #### SEDR #### [facility] [address] [place] [address] Dr. Virgil Pereira (RBC) [Entitic vol]84.9 jKTrxpzd91.0-99.0The [facility] CampusComment on above:Performed By: #### SEDR #### [facility] [address] [place] [address] Dr. Virgil Patterson #1.1 103/ulCritically high0.3-0.8The [facility] Comment on above:Performed By: #### SEDR #### [facility] [address] [place] [address] Dr. Virgil Pickensocytes/100 WBC (Bld)6.4 %Normal1.7-12.0The [facility] Comment on above:Performed By: #### SEDR #### [facility] [address] [place] [address] Dr. Virgil Martin #15.1 103/ulCritically high1.4-6.5The [facility] Comment on above:Performed By: #### SEDR #### [facility] [address] [place] [address] Dr. Virgil Hernandezutrophils/100 WBC (Bld)85.7 %Critically high43.0-75.0The [facility] CampusComment on above:Performed By: #### SEDR #### [facility] [address] [place] [address] Dr. Virgil PurdyPlatelet mean volume (Bld) [Entitic vol]11.2 fLNormal9.5-13.5The [facility] CampusComment on above:Performed By: #### SEDR #### [facility] [address] [place] [address] Dr. Virgil PurdyPLT244 103/htZgegpg370-055Dtj [facility] CampusComment on above: Performed By: #### SEDR #### [facility] [address] [place] [address] Dr. Virgil PurdyRBC3.65 106/ulCritically low4.20-5.40The [facility] CampusComment on above:Performed By: #### SEDR #### [facility] [address] [place] [address] Dr. Virgil PurdyWBC17.7 103/ulCritically high4.0-11.0The [facility] CampusComment on above:Performed By: #### SEDR #### [facility] [address] [place] [address] Dr. Virgil Chinchilla 57-06-1883BVM29.8 mg/dLCritically high<=1.0The [facility] CampusComment on above:Performed By: #### PT #### [facility] [address] [place], [place] [address] Dr. Virgil PurdyComplete Blood Count Auto Diffon 27-54-4162Rxwccmadh (Bld) [#/Vol]0.0 10*3/uLNormal0.0-0.2FRegency Hospital CompanyComment on above:Result Comment: PERFORMED BY: [facility] [address] [place] [address] PATHOLOGIST BALANCE BRIDGE INSPECTOR FREDY PRICE M.D.Performed By: #### ESR, CRP #### [facility] [address] [place] [address] USAEosinophils (Bld) [#/Vol]0.1 10*3/uLNormal0.0-0.45 [facility] HospitalComment on above:Performed By: #### ESR, CRP #### [facility] [address] [place] [address] USAEosinophils/100 WBC (Bld)0.5 %Normal.[facility] HospitalComment on above:Performed By: #### ESR, CRP #### [facility] [address] [place] [address] USAHematocrit (Bld) [Volume fraction]36.2 %Bnmula58.0-46.4 [facility] HospitalComment on above:Performed By: #### ESR, CRP #### [facility] [address] [place] [address] USAHemoglobin (Bld) [Mass/Vol]11.5 g/dLLow11.8-15.4FRegency Hospital CompanyComment on above:Performed By: #### ESR, CRP #### [facility] [address] [place] [address] USALymphocytes (Bld) [#/Vol]0.9 10*3/uLLow1.00-4.8[facility] HospitalComment on above:Performed By: #### ESR, CRP #### [facility] [address] [place] [address] USALymphocytes/100 WBC (Bld)4.2 %Normal.[facility] HospitalComment on above:Performed By: #### ESR, CRP #### [facility] [address] (RBC) [Entitic mass]27.0 drRlbphh73.7-34.3FRegency Hospital CompanyComment on above:Performed By: #### ESR, CRP #### [facility] [address] [place] [address] USAV (RBC) [Entitic vol]85.2 eXTkebfv68-480CekcvuwfaTrumbull Memorial HospitalComment on above:Performed By: #### ESR, CRP #### [facility] [address] [place] [address] USAMean Corpuscular HGB Conc31.7 g/dLLow32.0-35.0[facility] HospitalComment on above:Performed By: #### ESR, CRP #### [facility] [address] [place] [address] USAMonocytes (Bld) [#/Vol]1.0 10*3/uLHigh0.0-0.8[facility] HospitalComment on above:Performed By: #### ESR, CRP #### [facility] [address] [place] [address] USAMonocytes/100 WBC (Bld)4.7 %Normal.[facility] HospitalComment on above:Performed By: #### ESR, CRP #### [facility] [address] [place] [address] USANeutrophils (Bld) [#/Vol]18.6 10*3/uLHigh1.8-7.7FRegency Hospital CompanyComment on above:Performed By: #### ESR, CRP #### [facility] [address] [place] [address] USANeutrophils/100 WBC (Bld)90.4 %Normal.[facility] HospitalComment on above:Performed By: #### ESR, CRP #### [place] [address] USANRBC%0.1 /100{WBC}Normal0-0.5FRegency Hospital CompanyComment on above:Performed By: #### ESR, CRP #### [place] [address] USAPlatelet mean volume (Bld) [Entitic vol]8.7 fLNormal 6.3-10.7FRegency Hospital CompanyComment on above:Performed By: #### ESR, CRP #### [place] [address] USAPlatelets (Bld) [#/Vol]282 10*3/jRPuaazo014-130MqtqyhudgTrumbull Memorial HospitalComment on above:Performed By: #### ESR, CRP #### [place] [address] USARBC (Bld) [#/Vol]4.25 10*6/uLNormal3.60-5.00[facility] HospitalComment on above:Performed By: #### ESR, CRP #### [place] [address] USAWBC (Bld) [#/Vol]20.6 10*3/uLHigh3.8-11.6FRegency Hospital CompanyComment on above:Performed By: #### ESR, CRP #### [place] [address] USAErythrocyte Sedimentation Rateon 86-88-1079MWE (Bld) [Velocity]84 mm/hHigh0-29[facility] HospitalComment on above: Result Comment: PERFORMED BY: [place] [address] PATHOLOGIST BALANCE BRIDGE INSPECTOR FREDY PRICE M.D.Performed By: #### CRP, ESR #### [place] [address] USALactic Acidon 16-78-6109Tjgvedj [Moles/Vol]1.8 mmol/L Normal0.5-2.2FRegency Hospital CompanyComment on above:Result Comment: PERFORMED BY: [place] [address] PATHOLOGIST BALANCE BRIDGE INSPECTOR FREDY PRICE M.D.Performed By: #### ESR, CRP #### [facility] [address] [place] [address] USAOCC BLD IMMUNO SCREENon 62-01-5566RSVQXL BLOODNegative NormalNEGATIVEThe [facility] CampusComment on above:Performed By: #### SEDR #### [facility] [address] [place] [address] [address] Virgil PurdyPROF 14(COMP METB)on 64-93-0941Zeftpro [Mass/Vol]1.6 g/dL Critically low3.4-5.0The [facility] CampusComment on above:Performed By: #### PT #### [facility] [address] [place] [address] Dr. Virgil PurdyAlbumin/Globulin [Mass ratio]0.4 {ratio}NormalThe [facility] East CampusComment on above:Performed By: #### PT #### [facility] [address] [place] [address] Dr. Virgil Garcia [Catalytic activity/Vol]76 U/GSihcyi44-591Fqj [facility] CampusComment on above:Performed By: #### PT #### [facility] [address] [place] [address] Dr. Virgil Spring [Catalytic activity/Vol]14 U/PQjiide82-85Soz [facility] CampusComment on above:Performed By: #### PT #### [facility] [address] [place] [address] Dr. Virgil Almanza gap [Moles/Vol]12.6 mmol/LNormalThe [facility] Comment on above:Performed By: #### PT #### [facility] [address] [place] [address] Dr. Virgil Billingsley [Catalytic activity/Vol]20 U/LVnrnfh86-68Crn [facility] CampusComment on above:Performed By: #### PT #### [facility] [address] [place] [address] Dr. Virgil PurdyBilirubin [Mass/Vol]0.4 mg/dLNormal0.2-1.0[facility] Comment on above:Performed By: #### PT #### [facility] [address] [place] [address] [address] Virgil PurdyCalcium [Mass/Vol]8.1 mg/dLCritically low8.5-10.1The [facility] CampusComment on above:Performed By: #### PT #### [facility] [address] [place] [address] [address] Virgil PurdyChloride [Moles/Vol]105 mmol/EGnrkvx11-962Nyf [facility] Comment on above:Performed By: #### PT #### [facility] [address] [place] [address] [address] Virgil PurdyCO2 [Moles/Vol]22.9 mmol/JIlnuva74.0-32.0[facility] Comment on above:Performed By: #### PT #### [facility] [address] [place] [address] Dr. Virgil PurdyCreatinine [Mass/Vol]1.14 mg/dLCritically high0.55-1.02The [facility] CampusComment on above:Performed By: #### PT #### [facility] [address] [place] [address] Dr. Virgil GarzaGFR-AF SOEFOQGJ41 mL/min/1.09e8Tbdoex>=60The [facility] Comment on above:Performed By: #### PT #### [facility] [address] [place] [address] [address] Virgil GarzaGFR-NON AF SHUYMMNT92 mL/min/1.08v5Ehqwyjchba low>=60[facility] HospitalComment on above:Performed By: #### PT #### [facility] [address] [place] [address] [address] Virgil PurdyGlobulin (S) [Mass/Vol]4.1 g/dLNormalThe [facility] CampusComment on above:Performed By: #### PT #### [facility] [address] [place] [address] Dr. Virgil PurdyGlucose [Mass/Vol]112 mg/dLCritically lvgn68-759Ytl [facility] CampusComment on above:Performed By: #### PT #### [facility] [address] [place] [address] Dr. Virgil PurdyPotassium [Moles/Vol]3.5 mmol/LNormal3.5-5.1The [facility] Comment on above:Performed By: #### PT #### [facility] [address] [place] [address] Dr. Virgil PurdyProtein [Mass/Vol]5.7 g/dLCritically low6.4-8.2The [facility] CampusComment on above:Performed By: #### PT #### [facility] [address] [place] [address] Dr. Virgil Alvesdium [Moles/Vol]137 mmol/LZisofp572-755Yox [facility] Comment on above:Performed By: #### PT #### [facility] [address] [place] [address] Dr. Virgil PurdyUrea nitrogen [Mass/Vol]26.0 mg/dLCritically high7.0-18.0The [facility] CampusComment on above:Performed By: #### PT #### [facility] [address] [place] [address] Dr. Virgil Langford nitrogen/Creatinine [Mass ratio]22.8 mg/mgNormalThe [facility] CampusComment on above:Performed By: #### PT #### [facility] [address] [place] [address] Dr. Virgil Rubin HEPARIN MONITORon 85-20-7980cECW Coag (Bld) [Time]40.4 s Nxgnot48.5-54.2[facility] HospitalComment on above:Performed By: #### SEDR #### [facility] [address] [place] [address] Dr. Virgil Mantilla Coag (Bld) [Time]37.9 sCritically low39.5-54.2The [facility] CampusComment on above:Performed By: #### PT #### [facility] [address] [place] [address] Dr. Virgil PurdySEBelen RATE WESTERGRENon 06-80-0369ELW BHIV574 mm/hrCritically high <=30The [facility] Hospitalment on above:Performed By: #### SEDR #### [facility] [address] [place] [address] Dr. Virgil GlasgowC AUTO DIFFon 33-28-7824OJQY #0.1 103/ulNormal0.0-0.1The [facility] CampusComment on above:Performed By: #### CBC #### [facility] [address] [place] [address] Dr. Virgil PurdyBasophils/100 WBC (Bld)0.3 %Normal0.2-2.0The [facility] Comment on above:Performed By: #### CBC #### [facility] [address] [place] [address] Dr. Herman ChangEO #0.0 103/ulNormal0.0-0.7The [facility] Hospitalment on above: Performed By: #### CBC #### [facility] [address] [place] [address] Dr. Virgil Garzaosinophils/100 WBC (Bld)0.1 %Critically low0.9-7.0The [facility] on above:Performed By: #### CBC #### [facility] [address] [place] [address] Dr. Virgil Garzarythrocyte distribution width (RBC) [Ratio]14.1 %Zmmdst54.0-15.0 [facility] Hospitalment on above:Performed By: #### CBC #### [facility] [address] [place] [address] Dr. Virgil PurdyHematocrit (Bld) [Volume fraction]35.4 %Critically low36.0-48.0 The [facility] Hospitalment on above:Performed By: #### CBC #### [facility] [address] [place] [address] Dr. Virgil PrudyHemoglobin (Bld) [Mass/Vol]11.5 g/dLCritically low12.0-16.0The [facility] HospitalComment on above:Performed By: #### CBC #### [facility] [address] [address] [address] Virgil Dykes #0.14 10e3/ulCritically high0.00-0.03The [facility] Comment on above:Performed By: #### CBC #### [facility] [address] [address] [address] Virgil Dykes %0.7 %Critically high0.0-0.5The [facility] CampusComment on above:Performed By: #### CBC #### [facility] [address] [place] [address] Dr. Virgil Golden #0.6 103/ulCritically low1.2-3.8The [facility] Comment on above:Performed By: #### CBC #### [facility] [address] [place] [address] Dr. Virgil Tabareshocytes/100 WBC (Bld)3.2 %Critically low20.5-60.0[facility]ier HospitalComment on above:Performed By: #### CBC #### [facility] [address] [place] [address] Dr. Virgil Womack DIFF REQNONormalThe [facility] CampusComment on above: Performed By: #### CBC #### [facility] [address] [place] [address] Dr. Virgil Samuel (RBC) [Entitic mass]28.3 laTuqbau79.7-34.0The [facility] CampusComment on above:Performed By: #### CBC #### [facility] [address] [place] [address] Dr. Virgil Samuel (RBC) [Mass/Vol]32.5 g/bYDibvmq07.9-35.2The [facility] CampusComment on above:Performed By: #### CBC #### [facility] [address] [place] [address] Dr. Virgil Samuel (RBC) [Entitic vol]87.2 tHUxhtyj86.0-99.0The [facility] CampusComment on above:Performed By: #### CBC #### [facility] [address] [address] [address] Virgil Patterson #1.2 103/ulCritically high0.3-0.8The [facility] Comment on above:Performed By: #### CBC #### [facility] [address] [place] [address] Dr. Virgil Pickensocytes/100 WBC (Bld)6.3 %Normal1.7-12.0[facility] Comment on above:Performed By: #### CBC #### [facility] [address] [place] [address] Dr. Virgil Martin #17.5 103/ulCritically high1.4-6.5ThMer[facility] Health [facility] Hospital Comment on above:Performed By: #### CBC #### [facility] [address] [place] [address] Dr. Virgil Hernandezutrophils/100 WBC (Bld)89.4 %Critically high43.0-75.0The [facility] CampusComment on above:Performed By: #### CBC #### [facility] [address] [place] [address] Dr. Virgil Olmedo mean volume (Bld) [Entitic vol]11.5 fLNormal9.5-13.5ThMercy Health Lorain HospitalComment on above:Performed By: #### CBC #### [facility] [address] [place] [address] Dr. Virgil PurdyPLT224 103/sdYfinhz345-052Rqy [facility] CampusComment on above: Performed By: #### CBC #### [facility] [address] [place] [address] Dr. Virgil PurdyRBC4.06 106/ulCritically low4.20-5.40The [facility] CampusComment on above:Performed By: #### CBC #### [facility] [address] [place] [address] Dr. Virgil PurdyWBC19.6 103/ulCritically high4.0-11.0The [facility] CampusComment on above:Performed By: #### CBC #### [facility] [address] [address] [address] Virgil Francois W MANUAL DIFFon 30-60-8885CUJHXEOG LYMPH #NormalThe [place] HospitalComment on above:Performed By: #### AMBER #### [facility] [address] [address] [address] Virgil PurdyATYPICAL LYMPH %NormalThe [place] HospitalComment on above: Performed By: #### AMBER #### [facility] [address] [place] [address] Dr. Virgil Lopez #Normal0.0-0.3The [facility] CampusComment on above: Performed By: #### AMBER #### [facility] [address] [place] [address] Dr. Virgil Lopez %Normal0-5The [facility] CampusComment on above:Performed By: #### AMBER #### [facility] [address] [place] [address] Dr. Virgil Haque #0.00 103/ulNormal0.00-0.10The [facility] CampusComment on above:Performed By: #### AMBER #### [facility] [address] [place] [address] Dr. Virgil Haque %0.0 %Critically low0.2-2.0The [facility] CampusComment on above:Performed By: #### AMBER #### [facility] [address] [place] [address] Dr. Virgil Wiseman #NormalAshtabula County Medical Center HospitalComment on above:Performed By: #### AMBER #### [facility] [address] [place] [address] Dr. Virgil Wiseman %NormalParkview Health Montpelier HospitalComment on above:Performed By: #### AMBER #### [facility] [address] [place] [address] Dr. Virgil PurdyCORRECTED WBCNormal4.0-11.0The [place] HospitalComment on above: Performed By: #### CBCDARIUS #### [facility] [address] [address] [address] Virgil Arteaga #0.00 103/ulNormal0.00-0.70The [facility] CampusComment on above:Performed By: #### AMBER #### [facility] [address] [address] [address] Virgil Arteaga%0.0 %Critically low0.9-7.0The [facility] CampusComment on above:Performed By: #### CBCDARIUS #### [facility] [address] [address] [address] Virgil PurdyHCT33.7 %Critically low36.0-48.0The [facility] CampusComment on above:Performed By: #### AMBER #### [facility] [address] [place] [address] Dr. Virgil PurdyHGB11.0 g/dlCritically low12.0-16.0The [facility] CampusComment on above:Performed By: #### AMBER #### [facility] [address] [place] [address] Dr. Virgil Walker #1.10 103/ulCritically low1.20-3.80The [facility] on above:Performed By: #### AMBER #### [facility] [address] [place] [address] Dr. Virgil Walker%6.0 %Critically low20.5-60.0The [facility] Hospitalment on above:Performed By: #### CBCDARIUS #### [facility] [address] [place] [address] Dr. Virgil PurdyMCH27.8 vdYlsdhc08.7-34.0The [facility] CampusComment on above: Performed By: #### CBCDARIUS #### [facility] [address] [address] [address] Virgil SamuelHC32.6 g/ogCcrgnu31.9-35.2The [facility] CampusComment on above:Performed By: #### CBCDARIUS #### [facility] [address] [address] [address] Virgil SamuelV85.1 sNRdvrdk09.0-99.0The [facility] CampusComment on above: Performed By: #### AMEBR #### [facility] [address] [address] [address] Virgil RudolphOCYTE #NormalAshtabula County Medical Center HospitalComment on above: Performed By: #### AMBER #### [facility] [address] [address] [address] Virgil RudolphOCYTE %NormalParkview Health Montpelier HospitalComment on above: Performed By: #### AMBER #### [facility] [address] [place] [address] Dr. Virgil Figueroa#0.73 103/ulNormal0.30-0.80The [facility] CampusComment on above:Performed By: #### AMBER #### [facility] [address] [place] [address] Dr. Virgil Figueroa%4.0 %Normal1.7-12.0The [facility] CampusComment on above: Performed By: #### AMBER #### [facility] [address] [place] [address] Dr. Virgil LindoV11.1 fLNormal9.5-13.5The [facility] CampusComment on above: Performed By: #### AMBER #### [facility] [address] [place] [address] Dr. Virgil Parish #NormalParkview Health Montpelier HospitalComment on above:Performed By: #### AMBER #### [facility] [address] [place] [address] Dr. Virgil AdenOCYTE %NormalParkview Health Montpelier HospitalComment on above:Performed By: #### AMBER #### [facility] [address] [place] [address] Dr. Virgil BenavidesNormalThe [facility] CampusComment on above:Performed By: #### AMBER #### [facility] [address] [place] [address] Dr. Virgil BrownT230 103/zpBrqzll614-519Lkt [facility] CampusComment on above: Performed By: #### AMBER #### [facility] [address] [place] [address] Dr. Virgil PurdyRBC3.96 106/ulCritically low4.20-5.40The [facility] CampusComment on above:Performed By: #### AMBER #### [facility] [address] [place] [address] Dr. Virgil PurdyRDW14.0 %Lxljgk38.0-15.0The [facility] CampusComment on above: Performed By: #### AMBER #### [facility] [address] [place] [address] Dr. Virgil Albert #16.47 103/ulCritically high1.40-6.50[facility] Comment on above:Performed By: #### AMBER #### [facility] [address] [place] [address] Dr. Virgil Albert %90.0 %Critically high43.0-75.0The [facility] CampusComment on above:Result Comment: vacuoles seenPerformed By: #### AMBER #### [facility] [address] [place] [address] Dr. Virgil SandovalBC18.3 103/ulCritically high4.0-11.0The [facility] CampusComment on above:Performed By: #### AMBER #### [facility] [address] [place] [address] Dr. Virgil Chinchilla 94-51-3438MGL [Mass/Vol]mg/LCritically high<=1.0The [facility] CampusComment on above:Performed By: #### SEDR #### [facility] [address] [place] [address] Dr. Virgil Mo BLOODon 45-34-3834Toinabazije examination of blood, cultureCulture Observations: NO GROWTH AT 5 DAYS.NormalThe [facility] CampusComment on above:Performed By: #### LACT #### [facility] [address] [place], [place] [address] Dr. Herman ChangMicroscopic examination of blood, cultureCulture Observations: NO GROWTH AT 5 DAYS.NormalThe [facility] CampusComment on above:Performed By: #### LACT #### [facility] [address] [place], [place] [address] Dr. Herman ChangECHOCARDIO M/2D COMPLETEon [id number] M/2D COMPLETE Patient Name Site Name LAURA TYLER [facility] Account No Medical Record Number Age Sex Date Time [id number] F 03/25/2023 11:25 At the Request [...] by: Josesito Manuel M.D. on 03/25/2023 at 18:19[facility] 14(COMP METB)on 83-69-5884Dgkwvvs [Mass/Vol]1.9 g/dLCritically low 3.4-5.0The [facility] CampusComment on above:Performed By: #### SEDR #### [facility] [address] [place] [address] Dr. Virgil PurdyAlbumin/Globulin [Mass ratio]0.4 {ratio}NormalThe [facility] CampusComment on above:Performed By: #### SEDR #### [facility] [address] [address] [address] Virgil Garcia [Catalytic activity/Vol]77 U/ZXuioki37-710Zkg [facility] CampusComment on above:Performed By: #### SEDR #### [facility] [address] [place] [address] Dr. Virgil Spring [Catalytic activity/Vol]14 U/DKkqjgg00-37Wlk [facility] CampusComment on above:Performed By: #### SEDR #### [facility] [address] [place] [address] Dr. Virgil Almanza gap [Moles/Vol]13.0 mmol/LNormalThe [facility] Comment on above:Performed By: #### SEDR #### [facility] [address] [place] [address] Dr. Virgil PurdyAST [Catalytic activity/Vol]11 U/LCritically sjj00-89Qgo [facility] CampusComment on above:Performed By: #### SEDR #### [facility] [address] [place] [address] Dr. Virgil PudryBilirubin [Mass/Vol]0.5 mg/dLNormal0.2-1.0The [facility] Comment on above:Performed By: #### SEDR #### [facility] [address] [place] [address] Dr. Virgil PurdyCalcium [Mass/Vol]8.7 mg/dLNormal8.5-10.1The [facility] Comment on above:Performed By: #### SEDR #### [facility] [address] [place] [address] Dr. Virgil PurdyChloride [Moles/Vol]100 mmol/DQymhrv03-817Opo [facility] Comment on above:Performed By: #### SEDR #### [facility] [address] [address] [address] Virgil PurdyCO2 [Moles/Vol]24.3 mmol/WQcvynd40.0-32.0The [facility] Comment on above:Performed By: #### SEDR #### [facility] [address] [address] [address] Virgil PurdyCreatinine [Mass/Vol]1.18 mg/dLCritically high0.55-1.02The [facility] CampusComment on above:Performed By: #### SEDR #### [facility] [address] [place] [address] Dr. Virgil GarzaGFR-AF VPMATABS74 mL/min/1.22y7Rhengdeatj low>=60The [facility] CampusComment on above:Performed By: #### SEDR #### [facility] [address] [place] [address] Dr. Virgil GarzaGFR-NON AF BOZVTHHZ69 mL/min/1.15n5Szwocyyedc low>=60The [facility] CampusComment on above:Performed By: #### SEDR #### [facility] [address] [place] [address] Dr. Virgil PurdyGlobulin (S) [Mass/Vol]4.3 g/dLNormalThe [facility] CampusComment on above:Performed By: #### SEDR #### [facility] [address] [place] [address] Dr. Virgil PurdyGlucose [Mass/Vol]92 mg/vDEdqkff83-628Bou [facility] Comment on above:Performed By: #### SEDR #### [facility] [address] [place] [address] Dr. Virgil PurdyPotassium [Moles/Vol]3.3 mmol/LCritically low3.5-5.1The [facility] CampusComment on above:Performed By: #### SEDR #### [facility] [address] [place] [address] Dr. Virgil PurdyProtein [Mass/Vol]6.2 g/dLCritically low6.4-8.2The [facility] CampusComment on above:Performed By: #### SEDR #### [facility] [address] [place] [address] Dr. Virgil PurdySodium [Moles/Vol]134 mmol/LCritically ioi619-906Mpa [facility] CampusComment on above:Performed By: #### SEDR #### [facility] [address] [place] [address] Dr. Virgil Langford nitrogen [Mass/Vol]25.0 mg/dLCritically high7.0-18.0The [facility] CampusComment on above:Performed By: #### SEDR #### [facility] [address] [place] [address] Dr. Virgil Langford nitrogen/Creatinine [Mass ratio]21.2 mg/mgNormalThe [facility] CampusComment on above:Performed By: #### SEDR #### [facility] [address] [place] [address] Dr. Virgil PurdyPROTIMEon 00-22-2638MIA Coag (PPP) [Relative time]0.96 {INR} NormalThe [facility] CampusCombronson methodist hospital on above:Performed By: #### PT #### [facility] [address] [place] [address] Dr. Virgil Linder GUIDELINESSEE BELOWSelect Medical Specialty Hospital - Columbus SouthComment on above:Result Comment: DESIRED INR: 2.0 - 3.0 CONDITIONS NOT LISTED BELOW 2.5 - 3.5 FOR PROSTHETIC HEART VALVE REPLACEMENT 2.5 - 3.5 RECURRENT THROMBOSIS Performed By: #### PT #### [facility] [address] [place] [address] Dr. Virgil PurdyPT Coag (PPP) [Time]10.2 sNormal9.0-11.6The [facility] Comment on above:Performed By: #### PT #### [facility] [address] [place] [address] Dr. Virgil Rubin HEPARIN MONITORon 15-12-5202zCZP Coag (Bld) [Time]38.5 s Critically low39.5-54.2The [facility] CampusComment on above:Performed By: #### PT #### [facility] [address] [place] [address] Dr. Virgil Moise (d) [Time]41.3 yYackcu86.5-54.2[facility] Comment on above:Performed By: #### LACT #### [facility] [address] [place] [address] Dr. Virgil Moise (Bld) [Time]41.0 eSilaju02.5-54.2[facility] Comment on above:Performed By: #### PTTHEP #### [facility] [address] [place] [address] Dr. Virgil Baxter RATE WESTERGRENon 91-14-2325KXT RATE82 mm/hrCritically high <=30The [facility] CampusComment on above:Performed By: #### SEDR #### [facility] [address] [place] [address] Dr. Virgil Davison EXT NON VASC LIMITED LTon 38-82-4823RM EXT NON VASC LIMITED LT EXAMINATION: US [...] Electronically authenticated by: AC LOVING Date: 2023-03-25 10:20[facility] W MANUAL DIFFon 84-97-7813PPWMWRCT LYMPH #NormalThe [facility] CampusComment on above:Performed By: #### SEDR #### [facility] [address] [place] [address] Dr. Virgil StilesYPICAL LYMPH %NormalThe [facility] CampusComment on above: Performed By: #### SEDR #### [facility] [address] [place] [address] Dr. Virgil Lopez #1.6 103/ulCritically high0.0-0.3The [facility] Comment on above:Performed By: #### SEDR #### [facility] [address] [place] [address] Dr. Virgil Lopez %8 %Critically high0-5The [place] HospitalComment on above: Performed By: #### SEDR #### [facility] [address] [place] [address] Dr. Virgil Haque #0.00 103/ulNormal0.00-0.10The [place] HospitalComment on above:Performed By: #### SEDR #### [facility] [address] [place] [address] Dr. Virgil Haque %0.0 %Critically low0.2-2.0The [facility] CampusComment on above:Performed By: #### SEDR #### [facility] [address] [place] [address] Dr. Virgil Wiseman #NormalThe [place] HospitalComment on above:Performed By: #### SEDR #### [facility] [address] [place] [address] Dr. Virgil Wiseman %NormalParkview Health Montpelier HospitalComment on above:Performed By: #### SEDR #### [facility] [address] [place] [address] Dr. Virgil PurdyCORRECTED WBCNormal4.0-11.0The [facility] CampusComment on above: Performed By: #### SEDR #### [facility] [address] [place] [address] Dr. Virgil Arteaga #0.19 103/ulNormal0.00-0.70The [place] HospitalComment on above:Performed By: #### SEDR #### [facility] [address] [place] [address] Dr. Virgil Arteaga%1.0 %Normal0.9-7.0The [facility] CampusComment on above: Performed By: #### SEDR #### [facility] [address] [place] [address] Dr. Virgil DorantesT43.4 %Nbuvbl55.0-48.0The [facility] CampusComment on above: Performed By: #### SEDR #### [facility] [address] [place] [address] Dr. Virgil PurdyHGB14.5 g/nyFhtrab06.0-16.0The [facility] CampusComment on above: Performed By: #### SEDR #### [facility] [address] [place] [address] Dr. Virgil Walker #1.36 103/ulNormal1.20-3.80The [facility] CampusComment on above:Performed By: #### SEDR #### [facility] [address] [place] [address] Dr. Virgil Walker%7.0 %Critically low20.5-60.0The [facility] CampusComment on above:Performed By: #### SEDR #### [facility] [address] [place] [address] Dr. Virgil SamuelH28.0 sfDgyxpt09.7-34.0The [facility] CampusComment on above: Performed By: #### SEDR #### [facility] [address] [place] [address] Dr. Virgil SamuelHC33.4 g/geAidumg93.9-35.2The [facility] CampusCombronson methodist hospital on above:Performed By: #### SEDR #### [facility] [address] [place] [address] Dr. Virgil SamuelV83.9 wVIogkxz20.0-99.0The [facility] CampusComment on above: Performed By: #### SEDR #### [facility] [address] [place] [address] Dr. Virgil RudolphOCYTE #NormalThe [facility] CampusCombronson methodist hospital on above: Performed By: #### SEDR #### [facility] [address] [place] [address] Dr. Virgil RudolphOCYTE %NormalParkview Health Montpelier HospitalComment on above: Performed By: #### SEDR #### [facility] [address] [address] [address] Virgil Figueroa#0.58 103/ulNormal0.30-0.80The [facility] CampusComment on above:Performed By: #### SEDR #### [facility] [address] [address] [address] Virgil Figueroa%3.0 %Normal1.7-12.0The [place] HospitalComment on above: Performed By: #### SEDR #### [facility] [address] [place] [address] Dr. Virgil LindoV11.1 fLNormal9.5-13.5The [facility] CampusComment on above: Performed By: #### SEDR #### [facility] [address] [place] [address] Dr. Virgil AdenOCYTE #NormalThe [facility] CampusComment on above:Performed By: #### SEDR #### [facility] [address] [place] [address] Dr. Virgil AdenOCYTE %NormalThe [facility] CampusCombronson [facility] hospital on above:Performed By: #### SEDR #### [facility] [address] [place] [address] Dr. Virgil PurdyNRBCNormalThe [facility] CampusComment on above:Performed By: #### SEDR #### [facility] [address] [place] [address] Dr. Virgil PurdyPLT238 103/tdGpvfkm569-104Hqm [facility] CampusComment on above: Performed By: #### SEDR #### [facility] [address] [place] [address] Dr. Virgil PurdyRBC5.17 106/ulNormal4.20-5.40The [facility] CampusComment on above:Performed By: #### SEDR #### [facility] [address] [place] [address] Dr. Virgil PurdyRDW13.7 %Nyeedq48.0-15.0The [facility] CampusComment on above: Performed By: #### SEDR #### [facility] [address] [place] [address] Dr. Virgil Albert #15.71 103/ulCritically high1.40-6.50The [facility] Comment on above:Performed By: #### SEDR #### [facility] [address] [place] [address] Dr. Virgil Albert %81.0 %Critically high43.0-75.0The [facility] CampusComment on above:Performed By: #### SEDR #### [facility] [address] [place] [address] Dr. Virgil SandovalBC19.4 103/ulCritically high4.0-11.0The [facility] CampusComment on above:Performed By: #### SEDR #### [facility] [address] [place] [address] Dr. Virgil Chinchilla 63-40-3366LXW92.6 mg/dLCritically high<=1.0The [facility] CampusComment on above:Performed By: #### BMP, URIC, CRP #### [facility] [address] [place] [address] Dr. Virgil Mo BLOODon 84-56-3217Wbzrqupwymb examination of blood, cultureCulture Observations: NO GROWTH AT 5 DAYS.NormalThe [facility] CampusComment on above:Performed By: #### LACT #### [facility] [address] [place] [address] Dr. Virgil PurdyMicroscopic examination of blood, cultureCulture Observations: NO GROWTH AT 5 DAYS.NormalThe [place] HospitalComment on above:Performed By: #### LACT #### [facility] [address] [place] [address] Dr. Virgil PurdyLACTATE/LACTIC ACIDon 73-07-4866Ftbuoox [Moles/Vol]1.4 mmol/L Normal0.4-2.0The [facility] CampusComment on above:Performed By: #### LACT #### [facility] [address] [address] [address] Virgil AlbarranI ARM LT WO CONon 75-81-5054RDW ARM LT WO CONEXAM: MRI ARM LT [...] Electronically authenticated by: LEE RODRÍGUEZ Date: 2023-03-24 17:45[facility] SouthPROF CHEM 8 (BAS METB)on 35-84-4330Sphzm gap [Moles/Vol]16.0 mmol/LNormalThe [facility] CampusComment on above:Performed By: #### BMP, URIC, CRP #### [facility] [address] [address] [address] Virgil PurdyCalcium [Mass/Vol]10.4 mg/dLCritically high8.5-10.1The [facility] CampusComment on above:Performed By: #### BMP, URIC, CRP #### [facility] [address] [address] [address] Virgil PurdyChloride [Moles/Vol]97 mmol/LCritically osw78-207Bed Chayo HospitalComment on above:Performed By: #### BMP, URIC, CRP #### [facility] [address] [place] [address] Dr. Virgil PurdyCO2 [Moles/Vol]26.7 mmol/DOyrfit01.0-32.0The [facility] Comment on above:Performed By: #### BMP, URIC, CRP #### [facility] [address] [place] [address] Dr. Virgil PurdyCreatinine [Mass/Vol]1.36 mg/dLCritically high0.55-1.02The [facility] CampusComment on above:Performed By: #### BMP, URIC, CRP #### [facility] [address] [place] [address] Dr. Virgil GarzaGFR-AF CTETBKDB30 mL/min/1.34h3Icjhkncaaw low>=60The [facility] CampusComment on above:Performed By: #### BMP, URIC, CRP #### [facility] [address] [place] [address] Dr. Virgil Parnell-NON AF JUNAAQWW45 mL/min/1.57m2Hozjlvccff low>=60The [facility] CampusComment on above:Performed By: #### BMP, URIC, CRP #### [facility] [address] [place] [address] Dr. Virgil PurdyGlucose [Mass/Vol]97 mg/zSTbadus05-864DwqParkview Health Montpelier Hospital Comment on above:Performed By: #### BMP, URIC, CRP #### [facility] [address] [place] [address] Dr. Virgil PurdyPotassium [Moles/Vol]3.7 mmol/LNormal3.5-5.1[facility] Comment on above:Performed By: #### BMP, URIC, CRP #### [facility] [address] [place] [address] Dr. Virgil PurdySodium [Moles/Vol]136 mmol/HHdbqyc111-415FyrParkview Health Montpelier Hospital Comment on above:Performed By: #### BMP, URIC, CRP #### [facility] [address] [place] [address] Dr. Virgil Langford nitrogen [Mass/Vol]28.0 mg/dLCritically high7.0-18.0The [facility] CampusComment on above:Performed By: #### BMP, URIC, CRP #### [facility] [address] [place] [address] Dr. Virgil Langford nitrogen/Creatinine [Mass ratio]20.6 mg/mgNormalThe [facility] CampusComment on above:Performed By: #### BMP, URIC, CRP #### [facility] [address] [place] [address] Dr. Virgil PurdyPTT HEPARIN MONITORon 98-94-8743fBAY Coag (Bld) [Time]36.0 s Critically low39.5-54.2The [facility] CampusCombronson methodist hospital on above:Performed By: #### PT #### [facility] [address] [place] [address] Dr. Virgil PurdySED RATE WESTERGRENon 27-61-9287KZF RATE78 mm/hrCritically high <=30The [facility] CampusCombronson methodist hospital on above:Performed By: #### SEDR #### [facility] [address] [place] [address] Dr. Virgil PurdyURIC ACID SERUMon 89-65-6491Sbzxk [Mass/Vol]4.3 mg/dLNormal 2.6-6.0The [facility] CampusCombronson methodist hospital on above:Performed By: #### BMP, URIC, CRP #### [facility] [address] [place] [address] Dr. Virgil PurdyXR ANKLE HILLARY MIN 3 VIEWSon 68-91-2127HF ANKLE HILLARY MIN 3 VIEWS EXAMINATION: XR [...] Date: 2022-08-22 10:41NoSy[facility] AUTO DIFFon 42-41-0761SBUM #0.1 103/ulNormal0.0-0.1The [facility] CampusComment on above:Performed By: #### PT #### [facility] [address] [place] [address] Dr. Virgil PurdyBasophils/100 WBC (Bld)1.1 %Normal0.2-2.0[facility] Comment on above:Performed By: #### PT #### [facility] [address] [place] [address] Dr. Virgil Sage #0.3 103/ulNormal0.0-0.7The [facility] CampusComment on above: Performed By: #### PT #### [facility] [address] [place] [address] Dr. Virgil Garzaosinophils/100 WBC (Bld)5.2 %Normal0.9-7.0The [facility] Comment on above:Performed By: #### PT #### [facility] [address] [place] [address] Dr. Virgil Garzarythrocyte distribution width (RBC) [Ratio]13.3 %Zzckwd11.0-15.0 The [facility] CampusComment on above:Performed By: #### PT #### [facility] [address] [place] [address] Dr. Virgil PurdyHematocrit (Bld) [Volume fraction]44.0 %Wqtiuj67.0-48.0The [facility] CampusComment on above:Performed By: #### PT #### [facility] [address] [place] [address] Dr. Virgil PurdyHemoglobin (Bld) [Mass/Vol]13.7 g/eEWiwbls86.0-16.0The [facility] CampusComment on above:Performed By: #### PT #### [facility] [address] [place] [address] Dr. Virgil Dykes #0.01 10e3/ulNormal0.00-0.03The [facility] CampusComment on above:Performed By: #### PT #### [facility] [address] [place] [address] Dr. Virgil Dykes %0.2 %Normal0.0-0.5The [facility] CampusComment on above: Performed By: #### PT #### [facility] [address] [place] [address] Dr. Virgil FishJuan J #1.5 103/ulNormal1.2-3.8The [facility] CampusComment on above:Performed By: #### PT #### [facility] [address] [place] [address] Dr. Virgil Tabareshocytes/100 WBC (Bld)26.8 %Cohzpl60.5-60.0The [facility] CampusComment on above:Performed By: #### PT #### [facility] [address] [place] [address] Dr. Virgil RomanUAL DIFF REQNONormalThe [facility] CampusComment on above: Performed By: #### PT #### [facility] [address] [place] [address] Dr. Virgil Samuel (RBC) [Entitic mass]28.2 eiBgciet02.7-34.0The [facility] CampusComment on above:Performed By: #### PT #### [facility] [address] [place] [address] Dr. Virgil Samuel (RBC) [Mass/Vol]31.1 g/iSEbmtzu42.9-35.2The [facility] CampusComment on above:Performed By: #### PT #### [facility] [address] [place] [address] Dr. Virgil Samuel (RBC) [Entitic vol]90.7 zEFjusux63.0-99.0The [facility] CampusComment on above:Performed By: #### PT #### [facility] [address] [place] [address] Dr. Virgil Patterson #0.5 103/ulNormal0.3-0.8The [facility] CampusComment on above:Performed By: #### PT #### [facility] [address] [place] [address] Dr. Virgil Pickensocytes/100 WBC (Bld)8.4 %Normal1.7-12.0The [facility] Comment on above:Performed By: #### PT #### [facility] [address] [place] [address] Dr. Virgil Martin #3.3 103/ulNormal1.4-6.5The [facility] CampusComment on above:Performed By: #### PT #### [facility] [address] [place] [address] Dr. Virgil Hernandezutrophils/100 WBC (Bld)58.3 %Rhfffc65.0-75.0The [facility] CampusComment on above:Performed By: #### PT #### [facility] [address] [place] [address] Dr. Virgil Garcialet mean volume (Bld) [Entitic vol]11.4 fLNormal9.5-13.5The [facility] CampusComment on above:Performed By: #### PT #### [facility] [address] [place] [address] Dr. Virgil PurdyPLT263 103/inBqrjfd320-798Yky [facility] CampusComment on above: Performed By: #### PT #### [facility] [address] [place] [address] Dr. Virgil PurdyRBC4.85 106/ulNormal4.20-5.40The [facility] CampusComment on above:Performed By: #### PT #### [facility] [address] [place] [address] Dr. Virgil PurdyWBC5.6 103/ulNormal4.0-11.0The [facility] CampusComment on above: Performed By: #### PT #### [facility] [address] [place] [address] Dr. Virgil PurdyGLYCOHEMOGLOBIN A1Con 50-82-1467DMT RECOMMENDATIONSEE [facility] HospitalCombr[facility] hospital on above:Result Comment: ADA RECOMMENDED LIMIT 4.0 - 6.0 ADA THERAPEUTIC TARGET < 7.0 ACTION SUGGESTED > 7.0Performed By: #### A1C #### [facility] [address] [place] [address] Dr. Virgil PurdyGlucose [Mass/Vol]123 mg/dLNoMarion HospitalCombronson methodist hospital on above:Performed By: #### A1C #### [facility] [address] [place] [address] Dr. Virgil PurdyHbA1c (Bld) [Mass fraction]5.9 %Normal4.5-6.2[facility] on above:Performed By: #### A1C #### [facility] [address] [place] [address] Dr. Virgil PurdyLIPID PROFILEon 54-75-9042JRGN-HDL RATIO NORMSEE [facility] SouthCombr[facility] hospital on above:Result Comment: 3.3 - 4.4 LOW RISK 4.4 - 7.1 AVERAGE RISK 7.1 - 11.0 MODERATE RISK >11.0 HIGH RISKPerformed By: #### PT #### [facility] [address] [place] [address] Dr. Virgil PurdyCholesterol [Mass/Vol]240 mg/dLCritically high<=200The [facility] on above:Performed By: #### PT #### [facility] [address] [place] [address] Dr. Virgil PurdyCholesterol in HDL [Mass/Vol]70 mg/dLCritically pkbj86-06Pjp [facility] on above:Performed By: #### PT #### [facility] [address] [place] [address] Dr. Virgil PurdyCholesterol in LDL [Mass/Vol]150.2 mg/dLPremier Health Miami Valley Hospital North on above:Performed By: #### PT #### [facility] [address] [place] [address] Dr. Virgil PurdyCholesterol.total/Cholesterol in HDL [Mass ratio]3.4 {ratio} NormalThe [facility] CampusComment on above:Performed By: #### PT #### [facility] [address] [place] [address] Dr. Virgil Vasquez NORMAL> or = 60 mg/dl - LOW CARDIOVASCULAR RISK <40 mg/dl - HIGH CARDIOVASCULAR RISKSelect Medical Specialty Hospital - [facility] SouthComment on above:Performed By: #### PT #### [facility] [address] [place] [address] Dr. Virgil PurdyLDL CALC NORMALSEE BELOWSelect Medical Specialty Hospital - Columbus SouthComment on above:Result Comment: <100 mg/dl OPTIMAL 100 - 129 mg/dl NEAR OR ABOVE OPTIMAL 130 - 159 mg/dl BORDERLINE HIGH 160 - 189 mg/dl HIGH >190 mg/dl VERY HIGH Performed By: #### PT #### [facility] [address] [place] [address] Dr. Virgil PurdyTriglyceride [Mass/Vol]99 mg/dLNormal<=150The [facility] Comment on above:Performed By: #### PT #### [facility] [address] [place] [address] Dr. Virgil GuerraLDL CALC19.8 mg/dLNormThe Surgical Hospital at SouthwoodsComment on above: Performed By: #### PT #### [facility] [address] [place] [address] Dr. Virgil Shrestha PROFILEon 17-52-6839Tqnwmrt [Mass/Vol]3.8 g/dLNormal3.4-5.0 The [facility] CampusComment on above:Performed By: #### PT #### [facility] [address] [place] [address] Dr. Virgil PurdyAlbumin/Globulin [Mass ratio]1.1 {ratio}NormalThe [facility] CampusComment on above:Performed By: #### PT #### [facility] [address] [place] [address] Dr. Virgil MaddoxP [Catalytic activity/Vol]86 U/QWkfgcs93-708Mxr [place] HospitalComment on above:Performed By: #### PT #### [facility] [address] [address] [address] Virgil Spring [Catalytic activity/Vol]21 U/QSitvgg93-79Zgu [facility] Hospitalment on above:Performed By: #### PT #### [facility] [address] [address] [address] Virgil Billingsley [Catalytic activity/Vol]20 U/XKeaxhr59-15Ppt [facility] CampusComment on above:Performed By: #### PT #### [facility] [address] [address] [address] Virgil LizarragaI, CONJUGATED0.1 mg/dLNormal0.0-0.2[facility] Comment on above:Performed By: #### PT #### [facility] [address] [address] [address] Virgil Lizarragairubin [Mass/Vol]0.2 mg/dLNormal0.2-1.0[facility] Comment on above:Performed By: #### PT #### [facility] [address] [address] [address] Virgil PurdyGlobulin (S) [Mass/Vol]3.5 g/dLNormalThe [facility] CampusCombronson [facility] hospital on above:Performed By: #### PT #### [facility] [address] [address] [address] Virgil PurdyProtein [Mass/Vol]7.3 g/dLNormal6.4-8.2[facility] Comment on above:Performed By: #### PT #### [facility] [address] [address] [address] Virgil PurdyPROF CHEM 8 (BAS METB)on 78-02-8896Uvlkv gap [Moles/Vol]11.9 mmol/LNormalAdams County Hospitalment on above:Performed By: #### PT #### [facility] [address] [address] [address] Virgil PurdyCalcium [Mass/Vol]9.0 mg/dLNormal8.5-10.1The [facility] Comment on above:Performed By: #### PT #### [facility] [address] [place] [address] Dr. Virgil PurdyChloride [Moles/Vol]105 mmol/JVgcmuy87-972QucParkview Health Montpelier Hospital Comment on above:Performed By: #### PT #### [facility] [address] [address] [address] Virgil PurdyCO2 [Moles/Vol]25.3 mmol/JPvdcjy57.0-32.0The [facility] Comment on above:Performed By: #### PT #### [facility] [address] [place] [address] Dr. Virgil PurdyCreatinine [Mass/Vol]0.90 mg/dLNormal0.55-1.02The [facility] CampusComment on above:Performed By: #### PT #### [facility] [address] [place] [address] Dr. Virgil GarzaGFR-AF MONTSERRATIAN>60Normal>=60The [facility] CampusComment on above:Performed By: #### PT #### [facility] [address] [place] [address] Dr. Virgil GarzaGFR-NON AF MONTSERRATIAN>60Normal>=60The [facility] CampusComment on above:Performed By: #### PT #### [facility] [address] [place] [address] Dr. Virgil PurdyGlucose [Mass/Vol]93 mg/xAZdeuyb59-940Ess [facility] Comment on above:Performed By: #### PT #### [facility] [address] [address] [address] Virgil PurdyPotassium [Moles/Vol]5.2 mmol/LCritically high3.5-5.1The [facility] CampusComment on above:Performed By: #### PT #### [facility] [address] [place] [address] Dr. Virgil PurdySodium [Moles/Vol]137 mmol/GNmcvux755-205Rqb [facility] Comment on above:Performed By: #### PT #### [facility] [address] [place], [place] [address] Dr. Virgil Langford nitrogen [Mass/Vol]16.0 mg/dLNormal7.0-18.0The [facility] CampusComment on above:Performed By: #### PT #### [facility] [address] [address] [address] Virgil Langford nitrogen/Creatinine [Mass ratio]17.8 mg/mgNormalThe [facility] CampusComment on above:Performed By: #### PT #### [facility] [address] [place] [address] Dr. Virgil Sinclair 74-34-6750JYB82.874 uIU/mLCritically high0.358-3.740The [facility] CampusComment on above:Performed By: #### PT #### [facility] [address] [address] [address] Virgil Rebolledo Quick Testingon 11-86-0776TtrnjaErhsldeyQwqbh [facility] Other Vital Signs Date TimeVital SignValuePerforming FzctakzsaQzoftarx97-48-1636 10:38-0500Body fkahve354.5 cmAnthony Rusher DPM Work Phone: [facility] HealthXmsfiyunfs63-34-4289 10:38-0500Body mass index (BMI) [Ratio]29.26 kg/f5Tqhyezh Rusher DPM Work Phone: [phone] HealthQhwbjavhev88-76-9801 10:38-0500Body kdvroe49.58 kgAnthony Rusher DPM Work Phone: [phone] HealthMlaiyrwhye12-34-0856 09:30-0400Body fuloub732.48 cmJustheriberto Concepcion Other [facility] Other 05-26-2023 09:30-0400Body mass index (BMI) [Ratio] 28.16 kg/y4Lihruf [place] Other 632.273.1134noFarmol Other 05-26-2023 09:30-0400Body myflcu05.85 kgJufelicitas Concepcion Other [employer] Other 11-15-2021 15:15-0500Body fdfxwi413.48 cmAmber Ginty Other [employer] Other 11-15-2021 15:15-0500Body mass index (BMI) [Ratio] 29.63 kg/i1Brddw Ginty Other [employer] Other 11-15-2021 15:15-0500Body njlxmqxiwpn88.2 [degF]Harper Ginty Other [employer] Other 11-15-2021 15:15-0500Body ekkgkp92.48 kgAmber Ginty Other [employer] Other 11-15-2021 15:15-5382FcF3% (BldA) [Mass fraction]97 % Harper Ginty Other [employer] Other Encounters Encounter DateEncounter TypeCare ProviderFacilityStart: 09-13-2025 End: 65-65-8017lxvtvgxlotIqgabsg R NILLFacility: BellevueStart: 09-13-2025 End: 48-19-8180Sgfxpps encounter procedureMichael R NILL [phone]-SekpvOhiohealth [facility] [place] Start: 51-89-4417qcpcmorjloStgbcoz NILLFacility: AnupamaevueStart: 05-29-2025 End: 24-22-5820Ngqmxskjt department patient visitNO PCP NO PCPProMedica Lakewood Regional Medical Centertart: 02-03-2025 End: 45-12-9976fcokftkmccOYBRGCT S RUSHERNot AvailableStart: 01-06-2025 End: 31-66-7260Ggtnbn outpatient new 45 minutesFior Pinon DPM Work Phone: noms PODIATRYComment on above:Posterior tibial tendinitis of right lower extremity (Primary Dx); Stress fracture of left tibia, initial encounter; Acute right ankle pain; Instability of right ankle joint; Difficulty walkingStart: 01-06-2025 End: 06-21-4101acxmvgddpzCCGMNSA S RUSHERNot AvailableStart: 07-24-2023 End: 98-73-3497nrthbcdvulGbfgay [place] Other noFarmol Other Start: 80-93-9361Ocnfid follow up visit related to original pxJustin KelleyFPG [facility] OrthopedicsStart: 05-06-2023 End: 20-11-3236qpxivifoktLdzxnm A KelleyFacility:[facility] Hospitaltart: 05-01-2023 End: 88-71-9699rngysyamxsJvqwaq [place] Other noFarmol Other Start: 67-46-8559Bvtgyu follow up visit related to original pxJustin KelleyFPG [facility] OrthopedicsStart: 04-17-2023 End: 59-24-5453vlsgrvdolnKGCXLS KELLEYFacility:S5Hxyuk: 75-18-9270Iueucq follow up visit related to original pxJustin KelleyFPG [facility] OrthopedicsStart: 04-10-2023 End: 37-83-1178ezuxbuqhrzWetfsx [place] Other noFarmol Other Start: 35-28-7318Timobi follow up visit related to original pxJustin KelleyFPG [facility] OrthopedicsStart: 04-07-2023 End: 63-50-0343bevubtktdbXdcotc A KelleyFacility:[facility] Hospitaltart: 04-06-2023 End: 87-82-3496xkjwvvzollJclknm Fritz ConcepcionFacility:[facility] Hospitaltart: 03-26-2023 End: 70-32-1398Rbulnzfyvt and management of inpatientAnoOlivera Facility:[facility] [facility]2023 End: 44-56-5866Xzadeocmiy and management of inpatientDR AMILCAR SMITH .Facility: Start: 08-22-2022 End: 97-12-6917zvkxmbujmeBD HUBER Fritz NADERERFacility:T5Jmvkz: 99-39-4295Mxlgcjavf for general adult medical examination without abnormal findingsDR HUBER DEWEY [facility]2022 End: 02-49-8141ixyevhmtudLK MARC A NADERERFacility:J7Mnukz: 08-19-2022 End: 19-70-7916Zlyrjwnpv for general adult medical examination without abnormal findingsDR HUBER ARTHURRFacility:Q7Awagz: 09-30-2021 End: 21-86-6340zbcccwmxcqUnnwt Ginty Other [facility] Other Start: 09-78-4159Ktwxup outpatient visit 15 minutes [facility] Procedures DateProcedureProcedure DetailPerforming ClinicianStart: 95-51-1747Biqow ankle complete minimum 3 viewsAnthony S Kathrin DPM Work Phone: AppendectomyMichael NILL ColonoscopyMichael NILL Extraction of wisdom toothMichael NILL Vaginal hysterectomyMichael NILL Plan of Treatment DateCare ActivityDetailAuthorStart: 02-03-2025 End: 81-48-9085Ijoaimp encounter pvprfhiir08/21/2025 10:30 AM EDT Office Visit [facility] [address] [place] [id number] Fior Pinon, DPM [address] [place], [place] [address] [facility]RYStart: 81-55-6284Lwkikndly vaccinationInfluenza Vaccine (#1)[facility] HealthcareStart: 21-02-3071Ktqtryctc for malignant neoplasm of breast MammogramNOMS HealthcareStart: 49-26-7934Suuuammwc for malignant neoplasm of cervixNOMS HealthcareStart: 68-76-0700Griuomnzj for malignant neoplasm of cervix Pap SmearNOMS HealthcareStart: 83-35-6949Hxtqbasfk for malignant neoplasm of colonN[facility]S Healthcare Immunizations Immunization DateImmunizationNotesCare KknbgnojOkuxpqsg42-96-1160xyrmbirwd virus vaccine, unspecified formulationFior Pinon DPM Work Phone: [facility] HealthGucjwnxekh40-55-3565RVCM-QhQ-0 mRNA (sqgfqdthsfj-smyy-gvhooyu) vaccineMichael NILL [phone]-SzntsSelect [facility] [place] Comment on above:Result Comment: 2025-08-28: [id number]-CcJ-5 (COVID- 19) mRNA BNT-162b2 vaxMichael NILL [phone]-PyemuMartins Ferry Hospital Comment on above:Result Comment: 2025-08-28: [id number]-ZzL-1 (COVID- 19) mRNA BNT-162b2 vaxMichael NILL [phone]-VweygOhiohealth Van Wert [facility] [place] 61-56-2390MIEA-CoV-2 (COVID-19) mRNA BNT-162b2 vaxMichael NILL [phone]-VxdndMartins Ferry Hospital Payers DatePayer CategoryPayerPolicy [id number] Health InsuranceUNITED HEALTHCARE Member Subscriber Plan / Payer (Effective 2019- Present) Name: Laura Tyler Relation to Subscriber: Self Name: Laura Tyler Payer ID: [id number] (NAIC) Type: Not on file Address: [address] [id number] 2.0.1.628155.3.57[id number] 2.0.1.869947.3.57[id number] 2.0.1.761626.3.57[id number] 2.0.1.820916.3.57[id number] 2.0.1.464975.3.57[id number] 2..1.082524.3.57[id number] 2.0.1.981181.3.57[id number] 2.840.1.271424.3.57[id number] 2.0.1.989752.3.57[id number] 2.840.1.310309.19 [id number] 2.840.1.5[id number] 2.840.1.7[id number] 2..840.1.457484.3.579.2.531 [id number] 2..840.1.073771.3.579.2.531Worker's [id number] Social History DateTypeDetailFacilityUnknown if ever smokedNocedar county [facility] hospital [facility] Other Start: 52-13-6790Xiq [facility]: 01-06-2025 End: 87-62-6579Xyzeymm smoking status NHISEx-smokerNOMS HealthcareHistory of tobacco useCurrent smokerNOMS HealthcareHistory of tobacco useCigarette Smoker [facility] HealthcareStart: 43-57-9677Cbrtozmqs beverage intakeCurrent drinker of alcohol (finding)[facility] HealthcareStart: 59-14-2082Tiqwbwhnf beverage intakeNOAK HealthcareStart: 06-98-0559Ucvlbiw CommentPatient quit 2016[facility] HealthcareStart: 13-50-2727Fdayrvs Crvezbh0e a weekNOAK HealthcareStart: 90-99-7689Pkx assigned at [facility]hamNot on [facility] HospitalTobacco smoking statusNeMercy Health [facility] Surgery OhioHealthexual OrientationOhiohealth Van Wert Hospital [facility] [place] Start: 95-44-4303ZpbDzpnqj (finding)[facility] Clinical Notes 09-30-2021 to 09-13-2025 Note Date & CareBxgoTinoxnpy91-56-8809 NoteGeneral Surgery Office/Clinic Note Chief Complaint consultation [...] Father. Hypercholesterolemia: Father. (more content not included)...[facility] CenterComment on above:Result Comment: Electronically Signed By: MARK UMANZOR, Juvenal Galicia\Date and Time Signed: 09/13/25 14:51 AIL49-91-1134 History of Present illness Narrative* Fior Pinon, [...] Fior Pinon DPM documented in this encounterNOMS Tcxljxjdwn16-06-4725 Evaluation note* Encounter Date Diagnosis Assessment Notes [...] obtain x-rays at consider a cortisone injection. [employer] Other 06-16-2023 Evaluation note* Encounter Date Diagnosis [...] 3 months. Short term disability phone? number [phone] [facility] Other 06-02-2023 Evaluation note* Encounter Date Diagnosis [...] for removal of sutures (ICD-10 - Z48.02) [facility] Other 05-26-2023 Evaluation note* Encounter Date Diagnosis [...] with antibiotics.Call with any questions or concerns. [facility] Other [id number] NotePROCEDURE: XR FOREARM LT 2 VIEWS, XR [...] Electronically authenticated by: AC LOVING Date: 2023-03-24 11:04[facility]05-09-2023 NotePROCEDURE: XR FOREARM LT 2 VIEWS, [...] Electronically authenticated by: AC LOVING Date: 2023-03-24 11:04[facility]11-15-2021 Evaluation note* Encounter Date Diagnosis Assessment [...] Patient care instructions given in writting by [facility] Care At Home document [facility] Other Evaluation note* Diagnosis Posterior tibial tendinitis of right lower extremity- Primary Stress fracture of left tibia, initial encounter Acute right ankle pain Instability of right ankle joint Difficulty walking Difficulty in walking documented in this encounter [facility] HealthcareHistory general Narrative - Reported* Type Description Date Medical History Tachycardia Surgical HistoryhysterectomySurgical HistoryappendectomySurgical History colonoscopySurgical HistoryfingerHospitalization Historysee above [facility] Other History general Narrative - Reported* Type Description Date Medical History Tachycardia Surgical HistoryhysterectomySurgical HistoryappendectomySurgical History colonoscopySurgical HistoryfingerSurgical HistoryI & d left forearm Hospitalization Historysee above [facility] Other Hospital course Narrative No data available for this section [facility] Discharge instructions No data available for this section [facility] [place] Progress note No data available for this section [facility] [place] Summary Purpose Family History No Family History [...] and content) DATE CREATED AUTHOR 04/24/2023 [facility] DATE CREATED AUTHOR AUTHOR'S ORGANIZ ATION 05/28/2023 [facility] DATE CREATED AUTHOR AUTHOR'S ORGANIZ ATION 02/05/2025 [facility] DATE CREATED AUTHOR AUTHOR'S ORGANIZ ATION 06/02/2025 [facility] DATE CREATED AUTHOR AUTHOR'S ORGANIZ ATION 09/15/2025 [facility] Care Teams (unrecognized sec tion and content) Team MemberRelationshipSpecialtyStart DateEnd Date Huber Dewey MD [address] [place] [id number] PCP - GeneralFamily Asjwnxou59/1/23 FOR RECORDS PERTAINING TO PATIENTS WHO ARE [...] BE BASED ON THE PRIMARY CLINICAL RECORDS. [facility], [facility]. provides no warranty or guarantee of the accuracy or completeness of information in this document.
--- OUTSIDE RECORDS SUMMARY | 2025-10-10 07:41 | XMS_ITS | Clinical Summary ---
Author Organization [facility] Address [address] [place] [address] Care Team Providers Care Board Filler Name Role Phone Huber Thorne MD Primary Care Provider [phone] Allergies No known active allergies Medications MedicationSigDispense [...] Active Problems ProblemNoted DateDiagnosed DateArthralgia of both wawvgb0403/28/2024hronic left shoulder pain03/28/2024hronic superficial gastritis without khflezqi27/13/2024 Dyshidrotic rwtyla4203/28/2024dult dfayqnrmotqxkz02/13/2024aroxysmal atrial ruekkngyvplz22/13/2024upture of right tympanic membrane due to otitis media 03/28/2024 Social History Tobacco UseTypesPacks/DayYears UsedDateSmoking Tobacco: FormerCigarettes Tobacco Cessation:Counseling Given: Not Answered Comments:Patient quit 2015 Alcohol UseStandard Drinks/WeekCommentsYes2 (1 standard drink = 0.6 oz pure alcohol)4x a weekCommentsUnknownSex and Gender InformationValueDate RecordedSex Assigned at BirthNot on fileLegal MtiXzxrwn07/15/2023 7:13 PM EDT Gender IdentityNot on fileSexual OrientationNot on file Last Filed Vital Signs Vital SignReadingTime TakenCommentsBlood Pressure--Pulse--Temperature-- Respiratory Rate--Oxygen Saturation--Inhaled Oxygen Concentration--Evhhnj78.9 kg (154 lb)02/03/2025 10:08 AM CXRSqkncv818.5 cm (5' 2 )02/03/2025 10:08 AM EDTBody Mass Index28.17002/03/2025 10:08 AM EDT Plan of Treatment Not on file Insurance Care Teams Team MemberRelationshipSpecialtyStart DateEnd Date Huber Thorne MD PCP - GeneralFamily Eudqcbqr11/1/23
[2025-10-10 08:48] LABS: Alanine Aminotransferase 25 U/L (14-59); Albumin Globulin Ratio 1.0; Albumin Level 3.6 g/dL (3.4-5.0); Alkaline Phosphatase 85 U/L (46-116); Aspartate Amino Transferase 32 U/L (15-37); Cholesterol 156 mg/dL (<=200); Globulin 3.5 g/dL; HDL Cholesterol 61 mg/dL (40-60); Total Protein 7.1 g/dL (6.4-8.2); Triglycerides 48 mg/dL (<=150); VLDL CHOLESTEROL 9.6 mg/dL
== END 2025-10-10 07:38 | disposition home or self-care (01) ==
LOC: LAB 07:38
PROVIDERS: PCP Family Medicine; Visit Provider Family Medicine
DX: E78.00 Pure hypercholesterolemia, unspecified (principal)
CPT/HCPCS: 36415; 80061; 80076